=== PATIENT | female | born 1985 | race African-American/Black ===

== ENCOUNTER 2017-01-23 05:13 | Inpatient (IN) | payer OTHER ==
[2017-01-23] MEDS ORDERED: FAMOTIDINE 20 MG/50 ML IVPB 50 ML IVPB ONE ×2 (05:43→06:33)
[2017-01-23] MEDS ORDERED: PANTOPRAZOLE SODIUM 40 MG in SODIUM CHLORIDE 100 ML IVPB ONE (05:43)
[2017-01-23] MEDS ORDERED: ONDANSETRON 4 MG/2 ML VIAL IVPUSH ONE ×2 (05:43→07:44)
[2017-01-23] MEDS ORDERED: SUCRALFATE 1 GM TABLET (FP) PO ONE (05:44)
[2017-01-23] MEDS ORDERED: SODIUM CHLORIDE 1,000 ML IV STA ×2 (05:52→07:44)
[2017-01-23] MEDS ORDERED: morphine CARPU-JECT 4 MG/1 ML DISP.SYRIN IVPUSH ONE (05:52)
--- NOTE | 2017-01-23 05:52 | PDOC ---
History of Present Illness - General Stated Complaint: ABD PAIN Time Seen by Provider: 01/23/17 05:19 History Source: Patient Exam Limitations: No Limitations - History of Present Illness Initial Comments: CHIEF COMPLAINT: 31 y/o afebrile female with PMH anxiety, migraines, perforated ulcer BIB EMS for abdominal pain. HISTORY OF PRESENT ILLNESS: The patient states last night she started having abdominal pain out of nowhere. She also admits to nausea. She denies fever, chills, v/d, constipation, CP, SOB, back pain, hematuria, dysuria, melena, hematochezia. The patient was here in 10/2016 and was found to have a perforated ulcer and was transferred to a tertiary facility. She states she did not have surgery. She is on daily protonix, which she did take yesterday. Vital signs on arrival are notable for pulse of 96. REVIEW OF SYSTEMS: GENERAL/CONSTITUTIONAL: No fever/chills. No weakness. No weight change. HEAD, EYES, EARS, NOSE AND THROAT: No change in vision. No ear pain or discharge. No sore throat. CARDIOVASCULAR: No chest pain or shortness of breath. RESPIRATORY: No cough, wheezing, or hemoptysis. GASTROINTESTINAL: +abd pain and nausea. No vomiting, diarrhea, constipation, melena. GENITOURINARY: No dysuria, frequency, or change in urination. MUSCULOSKELETAL: No joint or muscle swelling or pain. No neck or back pain. SKIN: No rash or easy bruising. NEUROLOGIC: No headache, vertigo, loss of consciousness, or loss of sensation. PHYSICAL EXAM: GENERAL: The patient is awake, alert, and fully oriented, intermittently screaming out in pain. She appears uncomfortable. HEAD: Normal with no signs of trauma. ENT: Pupils equal, round and reactive to light, extraocular movements intact, sclera anicteric, conjunctiva clear. Neck supple. Mucous membranes mildly dry. Lips dry and cracked with large crack down the middle of lower lip. LUNGS: Clear to auscultation bilaterally. Normal excursion. No respiratory distress or use of accessory muscles. CV: RRR, S1/S2, no MRG. Cap refill < 2 sec. ABDOMEN: Soft, mildly distended with hypoactive bowel sounds throughout. RUQ TTP with negative Barr's sign. Marked TTP of umbilical region and mcburney's point with passive guarding. No rigidity or rebound. Positive psoas and obturator signs. EXTREMITIES: Normal range of motion, no edema. NEUROLOGICAL: Normal speech, normal gait. CN II-XII grossly intact. PSYCH: Normal mood, normal affect. SKIN: Warm, dry, normal turgor, no rashes or lesions noted. Past History - Past Medical History Allergies/Adverse Reactions: Allergies Allergy/AdvReac Type Severity Reaction Status Date / Time No Known Drug Allergies Allergy Verified 01/11/17 10:58 Home Medications: Ambulatory Orders Tramadol HCl 50 mg PO TID #15 tablet MDD 4 11/15/16 Omeprazole 20 mg PO DAILY 01/23/17 Anemia: Yes (BLOOD TRANSFUSIONS) Asthma: No Cancer: No Cardiac Disorders: No CVA: No COPD: No CHF: No Dementia: No Diabetes: No GI Disorders: Yes (ABDOMINAL BLOATING/PAIN/WT LOSS SINCE BLDING ULCER) Disorders: No HTN: Yes (BORDERLINE BP AFTER CHILDBIRTH /NO MEDS) Hypercholesterolemia: No Liver Disease: No Psychiatric Problems: Yes (DEPRESSION) Seizures: No Thyroid Disease: No - Surgical History Abdominal Surgery: No Appendectomy: No Cardiac Surgery: No Cholecystectomy: No Lung Surgery: No Neurologic Surgery: No Orthopedic Surgery: No - Family Disease History Family Disease History: Heart Disease: Grandparents - Reproductive History Cervical CA: No Dysfunctional Uterine Bleeding: No Ectopic : No Endometrial CA: No Polycystic Ovaries: No Tubal Ligation: No - Psycho/Social/Smoking Cessation Hx Anxiety: No Suicidal Ideation: No Smoking History: Current every day smoker Have you smoked in the past 12 months: Yes Number of Cigarettes Smoked Daily: 6 Hx Alcohol Use: No Drug/Substance Use Hx: No Substance Use Type: None Hx Substance Use Treatment: No ED Treatment Course - LABORATORY CBC & Chemistry Diagram: 01/26/17 06:10 01/26/17 06:10 Medical Decision Making - Medical Decision Making A/P: 31 y/o afebrile female with PMH perforated ulcer c/o abdominal pain and nausea since last night. Plan is as follows: 1. Labs 2. UA/hcg 3. CT scan abd/pelvis 4. IV fluids 5. IV zofran, morphine, pepcid, protonix 6. PO carafate I am signing this patient out to my colleague: CELESTE Gamez In brief, this patient is being seen in the ED for a chief complaint of: abd pain I have completed the initial assessment interview note and have ordered: labs, UA, CT scan abd/pelvis, pain meds, antiemetics, IV fluids I have reviewed the following results: none Pending results are: all Please call the PCP: Shayne Plan for disposition is as follows: Pending *DC/Admit/Observation/Transfer Diagnosis at time of Disposition: Perforated bowel, Acute abdomen, Intra-abdominal free air of unknown etiology
[2017-01-23] MEDS ORDERED: morphine CARPU-JECT 4 MG/1 ML DISP.SYRIN ONE (06:08)
[2017-01-23] MEDS ORDERED: ONDANSETRON 4 MG/2 ML VIAL ONE ×2 (06:09→08:11)
[2017-01-23] MEDS ORDERED: SUCRALFATE 1 GM TABLET (FP) ONE (06:09)
[2017-01-23] MEDS ORDERED: PANTOPRAZOLE SODIUM 100 ML IVPB ONE (06:09)
[2017-01-23 06:40] LABS: BASOPHIL 0.5 % (0-2.0); EOSINOPHIL 0.2 % (0-4.5); MCH 26.4 pg (25.7-33.7); MCHC 30.3 g/dl (32.0-36.0); MEAN CELL VOLUME 86.9 fl (80-96); MEAN PLT VOLUME 8.5 fl (7.5-11.1); NEUTROPHILS 87.2 % (42.8-82.8); PLATELET COUNT 558 K/MM3 (134-434); WHITE BLOOD COUNT 14.7 K/mm3 (4.0-10.0)
[2017-01-23 07:11] LABS: ALBUMIN 3.8 g/dl (3.4-5.0); ALK PHOS 106 U/L (45-117); ANION GAP 10 (8-16); BILIRUBIN,TOTAL 0.2 mg/dL (0.2-1.0); CO2 25 mmol/L (21-32); CREATININE 0.5 mg/dL (0.55-1.02); GLUCOSE,RANDOM 121 mg/dL (74-106); SGOT/AST 7 U/L (15-37); SGPT/ALT < 6 U/L (12-78); TOT PROT 7.7 g/dl (6.4-8.2)
--- NOTE | 2017-01-23 07:48 | PDOC ---
*Physical Exam - Vital Signs Last Vital Signs Temp Pulse Resp BP Pulse Ox 97.9 F 96 H 20 110/68 100 01/23/17 05:48 01/23/17 05:48 01/23/17 05:48 01/23/17 05:48 01/23/17 05:48 - Physical Exam Gastrointestinal/Abdominal: positive: Decreased BS (x 4), Distended, Tenderness (generalized). negative: Soft (doughy feeling) Integumentary: positive: Normal Color, Dry, Warm ED Treatment Course - LABORATORY CBC & Chemistry Diagram: 01/23/17 06:15 01/23/17 06:15 - ADDITIONAL ORDERS Additional order review: Laboratory Results 01/23/17 01/23/17 06:15 06:15 Sodium 139 Potassium 3.6 Chloride 104 Carbon Dioxide 25 Anion Gap 10 BUN 10 Creatinine 0.5 L Creat Clearance w eGFR > 60 Random Glucose 121 H D Calcium 9.0 Total Bilirubin 0.2 AST 7 L D ALT < 6 L D Alkaline Phosphatase 106 D Total Protein 7.7 Albumin 3.8 Lipase 116 Serum , Qual Negative 01/23/17 06:15 RBC 2.70 L D MCV 86.9 MCHC 30.3 L RDW 24.0 H D MPV 8.5 D Neutrophils % 87.2 H Lymphocytes % 8.3 D Monocytes % 3.8 Eosinophils % 0.2 D Basophils % 0.5 - Medications Given in the ED: ED Medications Discontinued Medications Generic Name Dose Route Start Last Admin Trade Name Freq PRN Reason Stop Dose Admin Pantoprazole Sodium 40 mg/ 100 mls @ 200 mls/hr 01/23/17 05:43 01/23/17 06:20 Sodium Chloride IVPB 01/23/17 06:12 200 mls/hr ONCE ONE Administration Famotidine/Sodium Chloride 50 mls @ 100 mls/hr 01/23/17 05:43 01/23/17 06:36 Pepcid 20 Mg Premixed Ivpb - IVPB 01/23/17 06:12 100 mls/hr ONCE ONE Administration Sodium Chloride 1,000 mls @ 1,000 mls/hr 01/23/17 05:52 01/23/17 06:20 Normal Saline - IV 01/23/17 06:51 1,000 mls/hr ASDIR STA Administration Morphine Sulfate 4 mg 01/23/17 05:52 01/23/17 06:20 Morphine Injection - IVPUSH 01/23/17 05:53 4 mg ONCE ONE Administration Ondansetron HCl 4 mg 01/23/17 05:43 01/23/17 06:20 Zofran Injection IVPUSH 01/23/17 05:44 4 mg ONCE ONE Administration Sucralfate 1 gm 01/23/17 05:44 01/23/17 06:20 Carafate - PO 01/23/17 05:45 1 gm NOW ONE Administration Medical Decision Making - Critical Care Time Total Critical Care Time (minutes): 40 Critical Care Statement: The care of this patient involved high complexity decision making to prevent further life threatening deterioration of the patient 's condition and/or to evalute & treat vital organ system(s) failure or risk of failure. - Medical Decision Making 01/23/17 07:45 Patient received in sign out from EUGENIO Crespo. Patient here for abdominal pain. Patient with history of perforated Pepcid ulcer and states has now right lower quadrant pain. Patient has an elevated white count and a low H&H. Patient added for lactic acid, blood cultures and type and she was recently sent. Patient also complaining of nausea. Patient added for another dose of Zofran and has a dry appearance ordered for another 1 liter of IV fluid. 01/23/17 08:[address] patient was in severe pain. Patient ordered for Dilaudid prior to transfer. 01/23/17 10:00 Receive phone call from radiologist and patient has free air throughout the abdomen with perforation of her bowel. Patient immediately ordered for 2 units of blood, nothing by mouth, front desk monitor, preop labs, Gonzalez, and stat EKG. Call placed to Dr. Robin surgeon and surgical PA 01/23/17 10:[address] Robin surgeon states he will be here in the next 2 hours and patient needs to be seen by the surgical PA. Microblog placed again. Case discussed with hospitalist for medical admission and will sent to the ICU until the OR is ready. 01/23/17 10:14 Patient's blood pressure 129/94. Patient's heart rate 104. Patient is requesting more pain control. Patient be ordered for another dose of Dilaudid. Awaiting callback from diesel technician. Pt ordered for levaquin/flagyl iv *DC/Admit/Observation/Transfer Diagnosis at time of Disposition: Perforated bowel, Acute abdomen - Discharge Dispostion Admit: Yes - Referrals Referrals: Berny Bella MD [Primary Care Provider] -
[2017-01-23] MEDS ORDERED: HYDROmorphone HCL CARPU-JECT 2 MG/1 ML DISP.SYRIN IVPUSH ONE ×2 (08:12→10:16)
[2017-01-23] MEDS ORDERED: HYDROmorphone HCL CARPU-JECT 1 MG/1 ML DISP.SYRIN ONE ×2 (08:16→10:43)
[2017-01-23 09:29] LABS: ANISOCYTOSIS 3+; HYPOCHROMIA 3+; MICROCYTOSIS 1+; TEAR DROP CELLS FEW
--- NOTE | 2017-01-23 09:58 | PDOC ---
*Physical Exam - Vital Signs Last Vital Signs Temp Pulse Resp BP Pulse Ox 97.9 F 96 H 20 110/68 100 01/23/17 05:48 01/23/17 05:48 01/23/17 05:48 01/23/17 05:48 01/23/17 05:48 - Physical Exam Comments: 01/23/17 09:52 SIGN IN Sign-out received from night MLP (supervised by Dr. Moralez) Pt interviewed and examined Ancillary studies reviewed MIDLEVEL NOTE Pt seen by Midlevel Provider Madhuri Gamez under my direct supervision. Pt interviewed and examined. Ancillary studies reviewed. I agree with plan as outlined by Midlevel Provider. Pt with pmhx of prior perforated duodenal ulcer, who was transferred to [facility] and had an unknown procedure. (Pt does not know what proceedure was done at [facility] - [facility] records not available for review at this time) CT scan of the abdomen and pelvis with contrast There is a large volume of free air and free fluid in the abdomen consistent with perforation Metallic foreign bodies are seen, which likely represents surgical clips in the region of the duodenum possibly from prior surgery Strong suspicion for perforation/penetrating ulcer in the region of the pylorus or duodenum as the etiology for the patient's free air and free fluid There is fluid in infiltration surrounding the region of the gastric outlet, with enhancement of the gastric wall Laboratory Results - last 24 hr 01/23/17 01/23/17 01/23/17 05:44 06:15 06:15 WBC 14.7 H D RBC 2.70 L D Hgb 7.1 L D Hct 23.4 L D MCV 86.9 MCHC 30.3 L RDW 24.0 H D Plt Count 558 H MPV 8.5 D Neutrophils % 87.2 H Lymphocytes % 8.3 D Monocytes % 3.8 Eosinophils % 0.2 D Basophils % 0.5 Hypochromic-Microcytic 3+ Anisocytosis 3+ Microcytosis 1+ Macrocytosis 2+ Tear Drop Cells Few Sodium 139 Potassium 3.6 Chloride 104 Carbon Dioxide 25 Anion Gap 10 BUN 10 Creatinine 0.5 L Creat Clearance w eGFR > 60 Random Glucose 121 H D Lactic Acid Calcium 9.0 Total Bilirubin 0.2 AST 7 L D ALT < 6 L D Alkaline Phosphatase 106 D Total Protein 7.7 Albumin 3.8 Lipase 116 Serum , Qual Blood Type O POSITIVE Antibody Screen Positive H Antibody Identification TNP Crossmatch See Detail 01/23/17 01/23/17 06:15 08:35 WBC RBC Hgb Hct MCV MCHC RDW Plt Count MPV Neutrophils % Lymphocytes % Monocytes % Eosinophils % Basophils % Hypochromic-Microcytic Anisocytosis Microcytosis Macrocytosis Tear Drop Cells Sodium Potassium Chloride Carbon Dioxide Anion Gap BUN Creatinine Creat Clearance w eGFR Random Glucose Lactic Acid 1.161 Calcium Total Bilirubin AST ALT Alkaline Phosphatase Total Protein Albumin Lipase Serum , Qual Negative Blood Type Antibody Screen Antibody Identification Crossmatch EKG Sinus tachycardia 107, with normal axis Normal AV and IV conduction time Prolonged QT, with QTC of 558 Movement artifact will check Mag with prolonged QTc Surgery - Dr Robin - paged stat 01/23/17 10:14 Case d/w Dr Robin and Hospitalist - coming to see pt will start coverage with levaquin and flagyl admit ICU, Surg. to evaluate Hospitalist at bedside (Dr. Carr) Plan for OR Impression - acute surgical abdomen with free air and perforation ED Treatment Course - LABORATORY CBC & Chemistry Diagram: 01/24/17 07:10 01/24/17 07:10 - ADDITIONAL ORDERS Additional order review: Laboratory Results 01/23/17 01/23/17 01/23/17 08:35 06:15 06:15 Sodium 139 Potassium 3.6 Chloride 104 Carbon Dioxide 25 Anion Gap 10 BUN 10 Creatinine 0.5 L Creat Clearance w eGFR > 60 Random Glucose 121 H D Lactic Acid 1.161 Calcium 9.0 Total Bilirubin 0.2 AST 7 L D ALT < 6 L D Alkaline Phosphatase 106 D Total Protein 7.7 Albumin 3.8 Lipase 116 Serum , Qual Negative Blood Type Antibody Screen Antibody Identification Crossmatch 01/23/17 05:44 Sodium Potassium Chloride Carbon Dioxide Anion Gap BUN Creatinine Creat Clearance w eGFR Random Glucose Lactic Acid Calcium Total Bilirubin AST ALT Alkaline Phosphatase Total Protein Albumin Lipase Serum , Qual Blood Type O POSITIVE Antibody Screen Positive H Antibody Identification TNP Crossmatch See Detail 01/23/17 06:15 RBC 2.70 L D MCV 86.9 MCHC 30.3 L RDW 24.0 H D MPV 8.5 D Neutrophils % 87.2 H Lymphocytes % 8.3 D Monocytes % 3.8 Eosinophils % 0.2 D Basophils % 0.5 - Medications Given in the ED: ED Medications Discontinued Medications Generic Name Dose Route Start Last Admin Trade Name Freq PRN Reason Stop Dose Admin Hydromorphone HCl 1 mg 01/23/17 08:12 01/23/17 08:18 Dilaudid Injection - IVPUSH 01/23/17 08:13 1 mg ONCE ONE Administration Pantoprazole Sodium 40 mg/ 100 mls @ 200 mls/hr 01/23/17 05:43 01/23/17 06:20 Sodium Chloride IVPB 01/23/17 06:12 200 mls/hr ONCE ONE Administration Famotidine/Sodium Chloride 50 mls @ 100 mls/hr 01/23/17 05:43 01/23/17 06:36 Pepcid 20 Mg Premixed Ivpb - IVPB 01/23/17 06:12 100 mls/hr ONCE ONE Administration Sodium Chloride 1,000 mls @ 1,000 mls/hr 01/23/17 05:52 01/23/17 06:20 Normal Saline - IV 01/23/17 06:51 1,000 mls/hr ASDIR STA Administration Sodium Chloride 1,000 mls @ 1,000 mls/hr 01/23/17 07:44 01/23/17 08:15 Normal Saline - IV 01/23/17 08:43 1,000 mls/hr ASDIR STA Administration Morphine Sulfate 4 mg 01/23/17 05:52 01/23/17 06:20 Morphine Injection - IVPUSH 01/23/17 05:53 4 mg ONCE ONE Administration Ondansetron HCl 4 mg 01/23/17 05:43 01/23/17 06:20 Zofran Injection IVPUSH 01/23/17 05:44 4 mg ONCE ONE Administration Ondansetron HCl 4 mg 01/23/17 07:44 01/23/17 08:15 Zofran Injection IVPUSH 01/23/17 07:45 4 mg ONCE ONE Administration Sucralfate 1 gm 01/23/17 05:44 01/23/17 06:20 Carafate - PO 01/23/17 05:45 1 gm NOW ONE Administration *DC/Admit/Observation/Transfer Diagnosis at time of Disposition: Perforated bowel, Acute abdomen, Intra-abdominal free air of unknown etiology - Discharge Dispostion Admit: Yes - Referrals
[2017-01-23] MEDS ORDERED: LEVOFLOXACIN 750 MG IVPB 150 ML IVPB ONE ×2 (10:16→10:43)
[2017-01-23] MEDS ORDERED: METRONIDAZOLE 500 MG PREMIXED 100 ML IVPB ONE ×2 (10:16→10:44)
[2017-01-23 10:53] LABS: URINE APPEARANCE CLEAR; URINE BILIRUBIN NEGATIVE (NEGATIVE); URINE BLOOD NEGATIVE (NEGATIVE); URINE COLOR LTYELLOW; URINE GLUCOSE (UA) NEGATIVE (NEGATIVE); URINE KETONE NEGATIVE (NEGATIVE); URINE LEUK ESTERASE NEGATIVE (NEGATIVE); URINE NITRITE NEGATIVE (NEGATIVE); URINE UROBILINOGEN NEGATIVE E.U./dl (0.2-1.0)
[2017-01-23] MEDS ORDERED: HYDROmorphone HCL CARPU-JECT 1 MG/1 ML DISP.SYRIN IVPUSH PRN (10:53)
[2017-01-23] MEDS ORDERED: ONDANSETRON 4 MG/2 ML VIAL IVPB PRN ×2 (10:53→16:09)
[2017-01-23] MEDS ORDERED: SODIUM CHLORIDE 1,000 ML IV SCH ×2 (11:00→16:09)
[2017-01-23 11:02] LABS: INR 1.23 (0.82-1.09); PROTHROMBIN TIME (PATIENT) 13.6 SEC (9.98-11.88)
[2017-01-23 11:03] LABS: URINE PROTEIN 1+ (NEGATIVE)
--- NOTE | 2017-01-23 11:04 | EKG ---
Test Reason : Blood Pressure : / mmHG Vent. Rate : 107 BPM Atrial Rate : 107 BPM P-R Int : 152 ms QRS Dur : 066 ms QT Int : 418 ms P-R-T Axes : 056 039 062 degrees QTc Int : 558 ms SINUS TACHYCARDIA BASELINE ARTIFACT PROLONGED QT ABNORMAL ECG WHEN COMPARED WITH ECG OF 15-NOV-2016 06:26, QT HAS LENGTHENED Confirmed by CHAUNCEY KEBEDE MD ([id number]) on 01/23/2017 11:03:29 AM Referred By: Confirmed By:CHAUNCEY KEBEDE MD
[2017-01-23 11:06] LABS: URINE HYALINE CAST 7 /lpf; URINE MUCUS RARE; URINE RBC <1 /hpf (0-3); URINE WBC 1 /hpf (3-5); YEAST FEW
--- NOTE | 2017-01-23 11:21 | HP ---
PCP: Berny Bella CHIEF COMPLAINT: Abdominal pain HISTORY OF PRESENT ILLNESS: This is a 31-year-old woman who presented to the ER complaining of abdominal pain. She has been having worsening pain with nausea for several days. She has a history of constipation for which she takes Miralax. She thinks her last bowel movement was about 1 week ago. She denies vomiting, melena, rectal bleeding, fever, chills, flank pain, dysuria, hematuria , aspirin use, NSAID use, steroid use. She has no appetite and has lost about 4 lbs in the last month. She had an EGD with Dr. Corado on 01/15 - she says he told her she has something metal in her. She had been admitted here on 07/27/16 with abdominal pain and hemoglobin 2.9. Non-contrast CT of the abdomen and pelvis at that time was unremarkable. She was transfused. She developed acute respiratory failure and an acute abdomen. She was intubated. CT of the abdomen and pelvis with contrast showed significant distention of the stomach with narrowing of the distal antral/proximal duodenal region, small amount of air and contrast in and about the narrowed lumen. It was thought she had a retroperitoneal microperforation or pending perforation and that endoscopy would be too risky, so she was transferred to [facility]. She is not sure what was done there or what her diagnosis was. She has also been seen in the ER for abdominal pain on 10/30/16 and 11/15/16. CT on 10/30 showed a left adnexal cyst, and US on 11/15 was unremarkable. PAST MEDICAL HISTORY Anemia Hypertension Depression Migraine headache Ovarian cysts PAST SURGICAL HISTORY None Allergies No Known Drug Allergies Allergy (Verified 01/11/17 10:58) HOME MEDICATIONS 3 Medication Instructions Recorded Tramadol HCl 50 mg PO TID #15 tablet MDD 4 11/15/16 Omeprazole 20 mg PO DAILY 01/23/17 Recent Travel: No Social History: Smoking: Smokes 6 cigarettes/day Alcohol: Denies Drugs: Denies Family History: Unremarkable REVIEW OF SYSTEMS CONSTITUTIONAL: Present: weight loss, loss of appetite. Absent: fever, chills, diaphoresis, generalized weakness, malaise HEENT: Absent: rhinorrhea, nasal congestion, throat pain, throat swelling, difficulty swallowing, mouth swelling, ear pain, eye pain, visual changes CARDIOVASCULAR: Absent: chest pain, syncope, palpitations, lightheadedness, peripheral edema RESPIRATORY: Absent: cough, shortness of breath, dyspnea with exertion, orthopnea, wheezing, stridor, hemoptysis GASTROINTESTINAL: Present: abdominal pain, abdominal distention, nausea, constipation. Absent: vomiting, diarrhea, melena, hematochezia GENITOURINARY: Absent: dysuria, frequency, urgency, hesitancy, hematuria, flank pain MUSCULOSKELETAL: Absent: myalgia, arthralgia, joint swelling, back pain, neck pain SKIN: Absent: rash, itching, pallor HEMATOLOGIC/IMMUNOLOGIC: Absent: easy bleeding, easy bruising, lymphadenopathy, frequent infections ENDOCRINE: Present: unexplained weight loss. Absent: unexplained weight gain, heat intolerance, cold intolerance NEUROLOGIC: Present: headaches. Absent: focal weakness, paresthesias, dizziness , unsteady gait, seizure, mental status changes, bladder or bowel incontinence PSYCHIATRIC: Absent: anxiety, depression, suicidal or homicidal ideation, hallucinations. PHYSICAL EXAMINATION Vital Signs - 24 hr 01/23/17 01/23/17 01/23/17 05:48 07:46 10:00 Temperature 97.9 F 97.9 F 98.1 F Pulse Rate 96 H Pulse Rate [ 97 H 100 H Right Radial] Respiratory 20 16 16 Rate Blood Pressure 110/68 Blood Pressure 122/93 129/96 [Left Arm] O2 Sat by Pulse 100 100 100 Oximetry (%) GENERAL: Awake, alert, and fully oriented, in no acute distress. HEAD: Normal with no signs of trauma. EYES: Pupils equal, round and reactive to light, extraocular movements intact, sclerae anicteric, conjunctivae clear. EARS, NOSE, THROAT: Ears normal, nares patent, oropharynx clear without exudates. Moist mucous membranes. NECK: Normal range of motion, supple without lymphadenopathy, JVD, or masses. LUNGS: Breath sounds equal, clear to auscultation bilaterally. No wheezes, and no crackles. No accessory muscle use. HEART: Tachycardic, normal S1 and S2 without murmur, rub or gallop. ABDOMEN: Soft, distended, hypoactive bowel sounds, diffuse tenderness with guarding and rebound. No masses, hepatomegaly or splenomegaly. MUSCULOSKELETAL: Normal range of motion at all joints. No bony deformities or tenderness. No CVA tenderness. UPPER EXTREMITIES: 2+ pulses, warm, well-perfused. No cyanosis. No clubbing. Cap refill <2 seconds. No peripheral edema. LOWER EXTREMITIES: 2+ pulses, warm, well-perfused. No calf tenderness. No peripheral edema. NEUROLOGICAL: Cranial nerves II-XII intact. Normal speech. Gait not observed. PSYCHIATRIC: Cooperative. Good eye contact. Appropriate mood and affect. SKIN: Warm, dry, normal turgor, no rashes or lesions noted. Laboratory Results - last 24 hr 01/23/17 01/23/17 01/23/17 05:44 06:15 06:15 WBC 14.7 H D RBC 2.70 L D Hgb 7.1 L D Hct 23.4 L D MCV 86.9 MCHC 30.3 L RDW 24.0 H D Plt Count 558 H MPV 8.5 D Neutrophils % 87.2 H Lymphocytes % 8.3 D Monocytes % 3.8 Eosinophils % 0.2 D Basophils % 0.5 Hypochromic-Microcytic 3+ Anisocytosis 3+ Microcytosis 1+ Macrocytosis 2+ Tear Drop Cells Few Sodium 139 Potassium 3.6 Chloride 104 Carbon Dioxide 25 Anion Gap 10 BUN 10 Creatinine 0.5 L Creat Clearance w eGFR > 60 Random Glucose 121 H D Lactic Acid Calcium 9.0 Total Bilirubin 0.2 AST 7 L D ALT < 6 L D Alkaline Phosphatase 106 D Total Protein 7.7 Albumin 3.8 Lipase 116 Serum , Qual Blood Type O POSITIVE Antibody Screen Positive H Antibody Identification TNP Crossmatch See Detail 01/23/17 01/23/17 06:15 08:35 WBC RBC Hgb Hct MCV MCHC RDW Plt Count MPV Neutrophils % Lymphocytes % Monocytes % Eosinophils % Basophils % Hypochromic-Microcytic Anisocytosis Microcytosis Macrocytosis Tear Drop Cells Sodium Potassium Chloride Carbon Dioxide Anion Gap BUN Creatinine Creat Clearance w eGFR Random Glucose Lactic Acid 1.161 Calcium Total Bilirubin AST ALT Alkaline Phosphatase Total Protein Albumin Lipase Serum , Qual Negative Blood Type Antibody Screen Antibody Identification Crossmatch Chest x-ray: No acute process CT abd/pelvis: Large free air and free fluid. Surgical clips in region of duodenum. ASSESSMENT/PLAN: This is a 31-year-old woman with a history of iron-deficiency anemia, depression , HTN, migraine headaches, ovarian cysts who comes to the ER with worsening abdominal pain and nausea. She is afebrile, tachycardic and has WBC 14.7, hgb 7.1. CT shows free air and fluid. She is being admitted now for treatment of an emergent condition. 1. SIRS secondary to bowel perforation, possibly gastric/duodenal ulcer - NPO - IV fluid - Dilaudid as needed for pain - Zofran as needed for nausea - Protonix IV 2x daily - Levaquin ordered - Surgery consult - Obtain records from [facility] (Jul 2016) 2. Iron deficiency anemia - Likely secondary to chronic GI blood loss - Monitor hemoglobin and transfuse if <7.0 3. Depression - On no medication 4. Hypertension - On no medication Problem List - Problem (1) Acute abdomen Code(s): R10.0 - ACUTE ABDOMEN (2) SIRS (systemic inflammatory response syndrome) Code(s): R65.10 - SIRS OF NON-INFECTIOUS ORIGIN W/O ACUTE ORGAN DYSFUNCTION (3) Hypertension Code(s): I10 - ESSENTIAL (PRIMARY) HYPERTENSION (4) Depression Code(s): F32.9 - MAJOR DEPRESSIVE DISORDER, SINGLE EPISODE, UNSPECIFIED Visit type - Emergency Visit Emergency Visit: Yes ED Registration Date: 01/23/17 Care time: The patient presented to the Emergency Department on the above date and was hospitalized for further evaluation of their emergent condition. - New Patient This patient is new to me today: Yes Date on this admission: 01/23/17 - Critical Care Critical Care patient: Yes Total Critical Care Time (in minutes): 45 Critical Care Statement: The care of this patient involved high complexity decision making to prevent further life threatening deterioration of the patient 's condition and/or to evalute & treat vital organ system(s) failure or risk of failure.
--- NOTE | 2017-01-23 12:21 | CONSULT ---
- Consultation REQUESTING PROVIDER: Malick Robin (General Surgery) CONSULT REQUEST: We have been asked to surgically evaluate this patient for free air in the abdomen. PCP:Dm Carr MD HPI: Called to rigoberto 31yo female with significant PMHx of PUD. Who presented to the ER c/o abd pain that has steadily worsened over the past few days. This morning, she awoke with sever 10/10 pain. She has miltiple encounters tot his hospital for abd pain. She is followed by GI as an out-patient. She recently had an EGD with Dr. Corado on 01/15. Thinks her last BM was ~1 week ago. Hospital visit 07/27/16: admit w/ abd pain and Hgb 2.9. CT A/P w/ contrast showed significant distention of the stomach with narrowing of the distal antral/ proximal duodenal region, small amount of air and contrast in and about the narrowed lumen. It was thought she had a retroperitoneal microperforation or pending perforation and that endoscopy would be too risky, so she was transferred to [facility]. She is not sure what was done there or what her diagnosis was. Currently getting 1 unit PRBC secondary to low h/h. She denies n/v/f/c, diaphoresis. Denies chest pain, syncope, palpitations or lightheadedness. Denies cough, SOB or MARTINEZ. Denies constipation, melena or hematochezia. Denies dysuria or flank pain. PMHx: Anemia, Depression, Migraine headache, Ovarian cysts, PUD, Constipation, UGIB PSHx: EGD Dec 2015 Allergies: NKDA HOME MEDICATIONS 3 Medication Instructions Recorded Tramadol HCl 50 mg PO TID #15 tablet MDD 4 11/15/16 Omeprazole 20 mg PO DAILY 01/23/17 ROS: CONSTITUTIONAL: Absent: SEE ABOVE. generalized weakness, malaise, loss of appetite, weight change CARDIOVASCULAR: Absent: SEE ABOVE. irregular heart rate, peripheral edema RESPIRATORY: Absent: SEE ABOVE. cough, wheezing, stridor, hemoptysis GASTROINTESTINAL:Absent: SEE ABOVE. GENITOURINARY: Absent: SEE ABOVE. frequency, urgency, hesitancy, hematuria MUSCULOSKELETAL: Absent: myalgia, arthralgia, joint swelling, back pain, neck pain SKIN: Absent: rash, itching, pallor HEMATOLOGIC/IMMUNOLOGIC: Absent: easy bleeding, easy bruising, lymphadenopathy NEUROLOGIC: Absent: headache, focal weakness, paresthesias, dizziness, unsteady gait, seizure, mental status changes, bladder or bowel incontinence PSYCHIATRIC: Absent: anxiety, depression, suicidal or homicidal ideation, hallucinations. PE: GENERAL: Awake, alert, and fully oriented, moderate distress HEAD: Normal with no signs of trauma. EYES: PERRL, sclera anicteric, conjunctiva clear. NECK: Normal ROM, supple without lymphadenopathy, JVD, or masses. LUNGS: CTA b/l anteriorly HEART: Slightly tachy ABDOMEN: Distended. Tympanic throughout. VERY painful to to light palpation . Hypoactive bowel sounds. + Rigidity/guarding (+peritoneal signs) MUSCULOSKELETAL: Normal ROM at all joints. No bony deformities or tenderness. No CVA tenderness. UE: 2+ pulses, warm, well-perfused. No cyanosis. Cap refill <2 seconds. No peripheral edema. LE: 2+ pulses, warm, well-perfused. No calf tenderness. No peripheral edema. Last Vital Signs Temp Pulse Resp BP Pulse Ox 98.1 F 103 H 19 119/77 100 01/23/17 11:47 01/23/17 11:47 01/23/17 11:47 01/23/17 11:47 01/23/17 11:47 CBC, BMP 01/23/17 06:15 01/23/17 06:15 INR, PTT INR 1.23 (0.82-1.09) H 01/23/17 10:00 Blood Type Blood Type O POSITIVE 01/23/17 05:44 Hepatic Panel Total Bilirubin 0.2 mg/dL (0.2-1.0) 01/23/17 06:15 AST 7 U/L (15-37) L D 01/23/17 06:15 ALT < 6 U/L (12-78) L D 01/23/17 06:15 Alkaline Phosphatase 106 U/L (45-117) D 01/23/17 06:15 Albumin 3.8 g/dl (3.4-5.0) 01/23/17 06:15 Problem List - Problems (1) Intra-abdominal free air of unknown etiology Assessment/Plan: NPO IVF IV ABX Medical optimization Going to OR at 13:00hrs today for exploratory laparotomy. --> risks, benefits, alternatives explained to patient and she agrees to above procedure. f/u HCG PRBC PRN Above plan discussed with Dr. Robin and agrees Code(s): K66.8 - OTHER SPECIFIED DISORDERS OF PERITONEUM Visit type - Case Type Case Type: ED Admission - Emergency Emergency Visit: Yes ED Registration Date: 01/23/17 Care time: The patient presented to the Emergency Department on the above date and was hospitalized for further evaluation of their emergent condition. - New patient This patient is new to me today: Yes Date on this admission: 01/23/17
[2017-01-23] MEDS ORDERED: MIDAZOLAM HCL 2 MG/2 ML SINGLE DOSE VIAL ONE (12:45)
[2017-01-23] MEDS ORDERED: PROPOFOL 20 ML ONE (12:45)
[2017-01-23] MEDS ORDERED: SUCCINYLCHOLINE CHLORIDE 200 MG/10 ML VIAL ONE (12:45)
[2017-01-23] MEDS ORDERED: ROCURONIUM BROMIDE 50 MG/5 ML VIAL ONE (12:45)
[2017-01-23] MEDS ORDERED: DEXAMETHASONE SOD PHOSPHATE 4 MG/1 ML VIAL ONE (12:48)
[2017-01-23] MEDS ORDERED: LIDOCAINE HCL/PF 2% SDV 5ML VIAL ONE (12:48)
[2017-01-23 13:14] LABS: MAGNESIUM 2.1 mg/dL (1.8-2.4)
--- NOTE | 2017-01-23 13:30 | PN ---
Progress Note (short form) - Note Progress Note: Attending Surgeon: patient seen and evaluated; chart; previous admissions reviewed; w/u to date reviewed Concur w/ A and P as outlined by EUGENIO Ennis; informed consent for surgery obtained from the patient; to OR. Malick Robin MD FACS
[2017-01-23] MEDS ORDERED: HYDROmorphone HCL/PF 1 MG/ML VIAL (FOR PYXIS CHARGING ONLY) ONE (14:12)
[2017-01-23] MEDS ORDERED: GLYCOPYRROLATE 0.2 MG/1 ML VIAL ONE (14:16)
[2017-01-23] MEDS ORDERED: NEOSTIGMINE METHYLSULFATE 0.5 MG/ML - 10 ML MDV ONE (14:16)
[2017-01-23] MEDS ORDERED: KETOROLAC TROMETHAMINE 30 MG/1 ML VIAL ONE (14:37)
--- NOTE | 2017-01-23 14:47 | OP ---
Operative Note - Note: Operative Date: 01/23/17 Pre-Operative Diagnosis: perforated viscus Operation: Paulie patch closure of perforated pyloric channel ulcer. Findings: perforated pyloric channel ulcer Post-Operative Diagnosis: Same as Pre-op Surgeon: Malick Robin Technical Documentation Specialist: Wellington Ennis Anesthesia: General Estimated Blood Loss (mls): 25
--- NOTE | 2017-01-23 14:49 | SURG ---
Surgery Director Of Patient Safety Note Director Of Patient Safety: Wellington Ennis PA-C Date of Service: 01/23/17 Diagnosis: Perforated viscus Procedure: Paulie patch closure of perforated pyloric channel ulcer I was present for the entirety of the operative procedure. For further detail, please refer to operative report. Visit type - Case Type Case Type: ED Admission - Emergency Emergency Visit: Yes ED Registration Date: 01/23/17 Care time: The patient presented to the Emergency Department on the above date and was hospitalized for further evaluation of their emergent condition. - New patient This patient is new to me today: Yes Date on this admission: 01/23/17
[2017-01-23] MEDS ORDERED: PROMETHAZINE HCL 25 MG/1 ML VIAL IVPUSH PRN (14:56)
[2017-01-23] MEDS ORDERED: HYDROmorphone HCL CARPU-JECT 2 MG/1 ML DISP.SYRIN ONE (15:33)
[2017-01-23] MEDS: HYDROmorphone HCL CARPU-JECT 1 MG/1 ML DISP.SYRIN IVPUSH PRN ×4 (15:35→16:10)
[2017-01-23] MEDS: LABETALOL HCL 5 MG/1 ML (100MG/20 ML VIAL) IVPUSH ONE (16:30)
[2017-01-23 18:18] VITALS: BMI 20.2
[2017-01-23] MEDS: HYDROmorphone HCL CARPU-JECT 1 MG/1 ML DISP.SYRIN IVPB PRN (20:31)
[2017-01-23] MEDS ORDERED: MUPIROCIN 2% TOPICAL OINTMENT FOR DECOLONIZATION NS SCH ×2 (22:00)
[2017-01-23] MEDS ORDERED: PANTOPRAZOLE SODIUM 40 MG in SODIUM CHLORIDE 100 ML IVPB SCH (22:00)
[2017-01-23] MEDS ORDERED: PANTOPRAZOLE SODIUM 100 ML IVPB SCH (22:00)
[2017-01-23] MEDS ORDERED: CHLORHEXIDINE GLUCONATE 4% CLEANSER FOR DECOLONIZATION TP SCH (22:00)
[2017-01-24] MEDS: HYDROmorphone HCL CARPU-JECT 1 MG/1 ML DISP.SYRIN IVPB PRN ×3 (00:01→08:32)
[2017-01-24] MEDS: METRONIDAZOLE 500 MG PREMIXED 100 ML IVPB SCH ×3 (01:53→17:16)
[2017-01-24 08:42] LABS: MCH 27.9 pg (25.7-33.7); MCHC 32.3 g/dl (32.0-36.0); MEAN CELL VOLUME 86.3 fl (80-96); MEAN PLT VOLUME 8.4 fl (7.5-11.1); PLATELET COUNT 542 K/MM3 (134-434); RDW 20.5 % (11.6-15.6); WHITE BLOOD COUNT 18.6 K/mm3 (4.0-10.0)
[2017-01-24] MEDS ORDERED: HYDROmorphone *PCA* 10MG/50ML DISP.SYRIN PCA SCH ×2 (09:00→09:01)
--- NOTE | 2017-01-24 09:07 | PN ---
Progress Note, Physician Chief Complaint: s/p ex lap for repair of gastric ulcer under general anesthesia History of Present Illness: post op day one - Current Medication List Current Medications: Active Medications Hydromorphone HCl (Dilaudid Director Epidemiology -) 0 mg REVERSE ENGINEER REVERSE ENGINEER EMILY PRN Reason: Protocol Stop: 01/27/17 08:59 Metronidazole (Flagyl 500mg Premixed Ivpb -) 100 mls @ 100 mls/hr IVPB Q8H-IV EMILY Stop: 01/24/17 17:59 Last Admin: 01/24/17 01:53 Dose: 100 mls/hr Levofloxacin (Levaquin 500 Mg Premixed Ivpb -) 100 mls @ 100 mls/hr IVPB ONCE ONE Stop: 01/24/17 10:59 Lactated Ringer's (Lactated Ringers Solution) 1,000 mls @ 75 mls/hr IV ASDIR EMILY - Objective Vital Signs: Vital Signs Temperature 98.3 F 01/24/17 06:00 Pulse Rate 96 H 01/24/17 06:00 Respiratory Rate 20 01/24/17 06:00 Blood Pressure 151/90 01/24/17 06:00 O2 Sat by Pulse Oximetry (%) 98 01/23/17 21:00 Constitutional: Yes: Anxious, Mild Distress Cardiovascular: Yes: WNL Respiratory: Yes: WNL Gastrointestinal: Yes: Tenderness (d), Other (NG tube in place) Labs: CBC, BMP 01/24/17 07:10 INR, PTT INR 1.23 (0.82-1.09) H 01/23/17 10:00 Assessment/Plan Post op day one, Patient in pain, not controlled by dilaudid boluses, will start on REVERSE ENGINEER today. No other anesthetic complications, dept of anesthesia will follow the pain control with REVERSE ENGINEER
--- NOTE | 2017-01-24 09:26 | MSN ---
Progress Note (short form) - Note Progress Note: Saw patient this AM. Patient is currently on her first post op day, s/p surgically treated perforated viscus in pyloric channel. Patient is NPO Patient states she slept fine last night. Patient currently complains of 9/10 abdominal pain in both upper and lower quadrants and back pain. Patient claims that pain medications are not helping with current pain. Patient did not have any BMs overnight. Patient has had 1250 mL of urine output today and has had Mejia catheter removed. Patient's blood pressure is currently elevated and patient is also feeling anxious. Will consider starting medications for HTN and depression. Patient's WBC count elevated from 14.7 to 18.6, possibly due to the stress of surgery. Patient denies N/V, dizziness, lightheadedness, fever/chills , headaches. Will continue monitor patient's labs and pain. Current Medications Current Medications Generic Name Dose Route Start Last Admin Trade Name Freq PRN Reason Stop Dose Admin Acetaminophen 590 mg 01/24/17 14:32 Ofirmev Injection - IVPB 01/25/17 04:56 Q6H PRN FEVER OR PAIN Metronidazole 100 mls @ 100 mls/hr 01/23/17 18:00 01/24/17 10:21 Flagyl 500mg Premixed Ivpb - IVPB 01/24/17 17:59 100 mls/hr Q8H-IV EMILY Administration Lactated Ringer's 1,000 mls @ 75 mls/hr 01/23/17 15:00 Lactated Ringers Solution IV ASDIR EMILY Pantoprazole Sodium 100 mls @ 200 mls/hr 01/25/17 10:00 Protonix 40mg Ivpb (Pre-Docked) IVPB DAILY EMILY Last Vital Signs Temp Pulse Resp BP Pulse Ox 98.3 F 96 H 20 151/90 98 01/24/17 06:00 01/24/17 06:00 01/24/17 06:00 01/24/17 06:00 01/23/17 21:00 CBC, BMP 01/24/17 07:10 01/24/17 07:10 GENERAL: Alert, oriented. Patient in no apparent distress HEAD: Normal with no signs of trauma. EYES: PERRL, extraocular movements intact, sclera anicteric, conjunctiva clear. No ptosis. ENT: Ears normal, nares patent, oropharynx clear without exudates, moist mucous membranes. NECK: Trachea midline, full range of motion, supple. LUNGS: Breath sounds equal, clear to auscultation bilaterally, no wheezes, no crackles, no accessory muscle use. HEART: Regular rate and rhythm, S1, S2 without murmur, rub or gallop. ABDOMEN: Soft, tender. 9/10 sharp pain in upper and lower quadrants. Midline surgical lesion noted with geovany EXTREMITIES: 2+ pulses, warm, well-perfused, no edema. NEUROLOGICAL: Cranial nerves II through XII grossly intact. Normal speech, gait not observed. PSYCH: Normal mood, normal affect. 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
[2017-01-24 09:37] LABS: CALCIUM 9.2 mg/dL (8.5-10.1); CREATININE 0.4 mg/dL (0.55-1.02)
--- NOTE | 2017-01-24 09:45 | PN ---
Progress Note (short form) - Note Progress Note: POD #1 s/p Ex-lap, Paulie patch closure of perforated pyloric channel ulcer Alert. Hasn't gotten oob yet. Per RN, pt c/o abd pain not controlled well via prn meds. Anesthesia note appreciated. NGT remains on low wall suction. She received her post-op antibiotics. Not using incentive spirometer. Compared to yesterday when I examined patient in ED , she looks much better despite the incisional tenderness. Denies n/v/f/c, CP or SOB Last Vital Signs Temp Pulse Resp BP Pulse Ox 98.3 F 96 H 20 151/90 98 /07/05 06:00 01/24/17 06:00 01/24/17 06:00 01/24/17 06:00 01/23/17 21:00 CBC, BMP 01/24/17 07:10 01/24/17 07:10 PE General: alert. nad. ABD: midline incision c/d/i with geovany. No hematoma LE: SCDs b/l. no pain or swelling Problem List - Problems (1) Intra-abdominal free air of unknown etiology Assessment/Plan: POD #1 s/p Ex-lap, Paulie patch closure of perforated pyloric channel ulcer NPO IVF GI / DVT ppx Goal for today is to be out of bed and ambulate today Carlos garibay and begin trial of void Per Anesthesia, they are starting patient on DISH STACKER which they will control/oversee Incentive spirometer Code(s): K66.8 - OTHER SPECIFIED DISORDERS OF PERITONEUM
[2017-01-24] MEDS ORDERED: LEVOFLOXACIN 500 MG IVPB 100 ML IVPB ONE (10:00)
[2017-01-24] MEDS ORDERED: ACETAMINOPHEN 1000 MG/100 ML VIAL (NON FORMULARY) IVPB PRN (10:55)
--- NOTE | 2017-01-24 14:33 | PN ---
Addendum entered and electronically signed by Shawn Montgomery RES 01/25/17 23: 03: EDIT: pt had no bowel movement, started her menses today Original Note: Physical Exam: SUBJECTIVE: Patient seen and examined. was unsure if she was passing gas. c/o abdominal pain. crying due to feeling overwhelmed about her situation. pain was controlled with dilaudid. OBJECTIVE: Vital Signs Period Temp Pulse Resp BP Sys/Suárez Pulse Ox Last 24 Hr 97.6 F-98.6 F 86-118 15-24 118-156/70-108 98-100 GENERAL: The patient is awake, alert, and fully oriented, in no acute distress. HEAD: Normal with no signs of trauma. EYES: PERRL, extraocular movements intact, sclera anicteric, conjunctiva clear. No ptosis. ENT: nares patent, oropharynx clear without exudates, moist mucous membranes. NECK: Trachea midline, full range of motion, supple. LUNGS: Breath sounds equal, clear to auscultation bilaterally, no wheezes, no crackles, no accessory muscle use. HEART: Regular rate and rhythm, S1, S2 without murmur, rub or gallop. ABDOMEN: Soft, tender, nondistended, hypoactive bowel sounds, well-approximated midline incision with geovany extending from epigastrium to mid abdomen, no discharge, no surrounding erythema. EXTREMITIES: 2+ pulses, warm, well-perfused, no edema. NEUROLOGICAL: Cranial nerves II through XII grossly intact. Normal speech PSYCH: sad, normal affect Laboratory Results - last 24 hr 01/24/17 01/24/17 07:10 07:10 WBC 18.6 H RBC 3.56 L D Hgb 9.9 L D Hct 30.7 L D MCV 86.3 MCHC 32.3 RDW 20.5 H D Plt Count 542 H MPV 8.4 Sodium 140 Potassium 3.9 Chloride 107 Carbon Dioxide 18 L D Anion Gap 15 BUN 6 L D Creatinine 0.4 L Random Glucose 77 D Calcium 9.2 Acetaminophen (Ofirmev Injection -) 590 mg IVPB Q6H PRN PRN Reason: FEVER OR PAIN Stop: 01/25/17 04:56 Last Admin: 01/24/17 15:34 Dose: 590 mg Lactated Ringer's (Lactated Ringers Solution) 1,000 mls @ 75 mls/hr IV ASDIR [facility] Last Admin: 01/24/17 15:35 Dose: 75 mls/hr Pantoprazole Sodium (Protonix 40mg Ivpb (Pre-Docked)) 100 mls @ 200 mls/hr IVPB DAILY [facility] ASSESSMENT/PLAN: 31 yr old woman with CIRILO requiring prbc transfusions, HTN, depression, migraines , s/p embolization of pseudoaneurysm of GDA communication with duodenum, presented with abdominal pain found to have perforated pyloric channel ulcer, s/ p garcia patch closure. #POD 1 - NG tube in place output: 250cc overnight, NPO - mejia removed - pain controlled with IV dilauded and IV tylenol - had bowel movement - PPI IV - IVF lactated - incentive spirometry - OOB #Leucocytosis - keven reactive to surgery, afebrile, low suspicion for infectious cause - treated with flagyl and levaquin marielena-op, will consider restarting if fever - bld cx, ucx, and peritoneal fluid cx NGTD #CIRILO - H/H stable - once taking po, will add iron supplementation #Depression - not on home medications - will monitor mood #dvt - SCD diet -npo Visit type - Emergency Visit Emergency Visit: No - New Patient This patient is new to me today: No - Critical Care Critical Care patient: No - Discharge Referral Referred to [facility] Med P.C.: No
--- NOTE | 2017-01-24 15:08 | PN ---
Teaching Attending Note Name of Resident: Shawn Montgomery ATTENDING PHYSICIAN STATEMENT I saw and evaluated the patient. I reviewed the resident's note and discussed the case with the resident. I agree with the resident's findings and plan as documented. SUBJECTIVE: no fever or chills , has no abd pain at time of evaluation around 12 pm. dilaudid IV worked for her . OBJECTIVE: NAD , tearful . MMM Cv : RRR ABd : soft , slightly distended , ttp in all quadrants , surgical dressing at mid line ASSESSMENT AND PLAN: 31 y/o lady with h/o migraines , Iorn def anemia , communicating pseudo- aneurysm in gastroduodenal artery , s/p imbolization , she presneted with abd pain , was found to have perforation of pyloric channel 1- perforation of pyloric channel s/p Paulie patch , POD 1 . Has a hx of communicating pseudo-aneurysm in gastroduodenal artery , s/p imbolization per records obtained from OSH doing well on PRN dialudid . will continue IV tylenol IVF NGT monitor urine out put off mejia marielena-op abx, probably last day today . leukocytosis worse due to surgical stress, no fever or evidence of infection add PPI 2- iron def anemia : stable Hb . will give irion supp when able totake po 3- DVT px , SCDs for now Current Medications Generic Name Dose Route Start Last Admin Trade Name Freq PRN Reason Stop Dose Admin Acetaminophen 590 mg 01/24/17 14:32 Ofirmev Injection - IVPB 01/25/17 04:56 Q6H PRN FEVER OR PAIN Metronidazole 100 mls @ 100 mls/hr 01/23/17 18:00 01/24/17 10:21 Flagyl 500mg Premixed Ivpb - IVPB 01/24/17 17:59 100 mls/hr Q8H-IV EMILY Administration Lactated Ringer's 1,000 mls @ 75 mls/hr 01/23/17 15:00 Lactated Ringers Solution IV ASDIR EMILY Pantoprazole Sodium 100 mls @ 200 mls/hr 01/25/17 10:00 Protonix 40mg Ivpb (Pre-Docked) IVPB DAILY EMILY
[2017-01-24] MEDS: ACETAMINOPHEN 1000 MG/100 ML VIAL (NON FORMULARY) IVPB PRN ×2 (15:34→20:38)
[2017-01-24] MEDS: LACTATED RINGERS SOLUTION 1,000 ML IV SCH (15:35)
[2017-01-24] MEDS ORDERED: morphine CARPU-JECT 2 MG/1 ML DISP.SYRIN IVPUSH PRN (20:02)
[2017-01-24] MEDS ORDERED: ACETAMINOPHEN 1000 MG/100 ML VIAL (NON FORMULARY) IVPB ONE (23:25)
[2017-01-24] MEDS ORDERED: SODIUM CHLORIDE 500 ML IV STA (23:25)
[2017-01-25 01:19] LABS: BASOPHIL 0.2 % (0-2.0); EOSINOPHIL 0.1 % (0-4.5); MCH 26.9 pg (25.7-33.7); MCHC 31.8 g/dl (32.0-36.0); MEAN CELL VOLUME 84.7 fl (80-96); MEAN PLT VOLUME 8.2 fl (7.5-11.1); NEUTROPHILS 90.2 % (42.8-82.8); PLATELET COUNT 694 K/MM3 (134-434); RDW 20.3 % (11.6-15.6)
[2017-01-25 01:44] LABS: CREATININE 0.3 mg/dL (0.55-1.02)
[2017-01-25] MEDS: HYDROmorphone HCL CARPU-JECT 1 MG/1 ML DISP.SYRIN IVPB PRN ×4 (03:16→23:13)
[2017-01-25] MEDS ORDERED: METOPROLOL TARTRATE 5 MG/5 ML VIAL IVPUSH PRN (03:39)
[2017-01-25] MEDS: METOPROLOL TARTRATE 5 MG/5 ML VIAL IVPB PRN ×2 (04:09→12:04)
[2017-01-25] MEDS: LACTATED RINGERS SOLUTION 1,000 ML IV SCH ×3 (07:17→12:31)
--- NOTE | 2017-01-25 07:26 | PN ---
Physical Exam: SUBJECTIVE: Patient seen and examined. feels better. less nauseas. using incentive spirometer. pain is controlled. urinated yesterday without hematuria/dysuria. has not passed gas. overight events: required lopressir IV for elevated BP. OBJECTIVE: Vital Signs Period Temp Pulse Resp BP Sys/Suárez Pulse Ox Last 24 Hr 98.1 F-98.6 F 106-127 18-24 141-158/99-113 99 GENERAL: The patient is awake, alert, and fully oriented, in no acute distress. EYES: PERRL, extraocular movements intact, sclera anicteric ENT: nares patent with NG tube in place, oropharynx clear without exudates, moist mucous membranes. NECK: Trachea midline, full range of motion, supple. LUNGS: Breath sounds equal, clear to auscultation bilaterally, no wheezes, HEART: tachycardic rate and regular rhythm, S1, S2 without murmur, rub or gallop. ABDOMEN: Soft, tender, nondistended, hypoactive bowel sounds, well-approximated midline incision with geovany extending from epigastrium to mid abdomen, no discharge, no surrounding erythema. EXTREMITIES: 2+ pulses, warm, well-perfused, no edema. PSYCH: normal affect. normal mood. Laboratory Results - last 24 hr 01/24/17 01/24/17 01/25/17 07:10 07:10 00:34 WBC 18.6 H 18.0 H RBC 3.56 L D 3.51 L Hgb 9.9 L D 9.5 L Hct 30.7 L D 29.7 L MCV 86.3 84.7 MCHC 32.3 31.8 L RDW 20.5 H D 20.3 H Plt Count 542 H 694 H D MPV 8.4 8.2 Neutrophils % 90.2 H Lymphocytes % 6.3 L D Monocytes % 3.2 L Eosinophils % 0.1 Basophils % 0.2 Sodium 140 Potassium 3.9 Chloride 107 Carbon Dioxide 18 L D Anion Gap 15 BUN 6 L D Creatinine 0.4 L Random Glucose 77 D Lactic Acid Calcium 9.2 01/25/17 01/25/17 00:34 00:35 WBC RBC Hgb Hct MCV MCHC RDW Plt Count MPV Neutrophils % Lymphocytes % Monocytes % Eosinophils % Basophils % Sodium 139 Potassium 3.6 Chloride 104 Carbon Dioxide 22 D Anion Gap 13 BUN 4 L D Creatinine 0.3 L D Random Glucose 80 Lactic Acid 0.742 Calcium 9.0 Active Medications Generic Name Dose Route Start Last Admin Trade Name Lance PRN Reason Stop Dose Admin Hydromorphone HCl 1 mg 01/24/17 20:07 01/25/17 03:16 Dilaudid Injection - IVPB 1 mg Q4H PRN Administration PAIN Lactated Ringer's 1,000 mls @ 75 mls/hr 01/23/17 15:00 01/25/17 07:17 Lactated Ringers Solution IV 75 mls/hr ASDIR EMILY Administration Pantoprazole Sodium 100 mls @ 200 mls/hr 01/25/17 10:00 Protonix 40mg Ivpb (Pre-Docked) IVPB DAILY EMILY Metoprolol Tartrate 5 mg 01/25/17 03:49 01/25/17 04:09 Lopressor Injection - IVPB 5 mg Q4H PRN Administration HYPERTENSION ASSESSMENT/PLAN: 31 yr old woman with CIRILO requiring prbc transfusions, HTN, depression, migraines , s/p embolization of pseudoaneurysm of GDA communication with duodenum, presented with abdominal pain found to have perforated pyloric channel ulcer, s/ p garcia patch closure. #POD 2 - NG tube in place with output - pain controlled with IV dilauded 1mg q3hr and IV tylenol - PPI IV daily - incentive spirometry - OOB #HTN with tachycardia - likely from dehydration and pain - IVF lactated @100mls/hr starting at midnight after 125/hr this morning #Leucocytosis - persistent on pod #2 - chest xray with low density retrocardiac, with continued leucocytosis, treat with flagyl and rocephin - bld cx, ucx, and peritoneal fluid cx NGTD #CIRILO - H/H stable - once taking po, will add iron supplementation #Depression - feels better today - not on home medications - will monitor mood #dvt - SCD's, heparin tid diet -npo dietary recommendation to start clinimix 4.25%/5% at 65ml/hr to provide (529kcal , 66gm protein, 1560mL free H2o), will consider if patient continues to be npo Visit type - Emergency Visit Emergency Visit: No - New Patient This patient is new to me today: No - Critical Care Critical Care patient: No - Discharge Referral Referred to [facility] Med P.C.: No
[2017-01-25] MEDS: LABETALOL HCL 5 MG/1 ML (100MG/20 ML VIAL) IVPUSH ONE (08:06)
[2017-01-25] MEDS: METRONIDAZOLE 500 MG PREMIXED 100 ML IVPB SCH (08:06)
[2017-01-25 08:11] LABS: BASOPHIL 0.4 % (0-2.0); EOSINOPHIL 0.2 % (0-4.5); MCH 27.6 pg (25.7-33.7); MCHC 32.1 g/dl (32.0-36.0); MEAN CELL VOLUME 85.8 fl (80-96); MEAN PLT VOLUME 8.1 fl (7.5-11.1); NEUTROPHILS 89.3 % (42.8-82.8); PLATELET COUNT 665 K/MM3 (134-434); RDW 20.8 % (11.6-15.6); WHITE BLOOD COUNT 17.1 K/mm3 (4.0-10.0)
[2017-01-25 08:51] LABS: CALCIUM 8.9 mg/dL (8.5-10.1)
[2017-01-25 08:52] LABS: CREATININE 0.3 mg/dL (0.55-1.02)
--- NOTE | 2017-01-25 09:22 | MSN ---
Progress Note (short form) - Note Progress Note: Saw patient this AM. Patient was complaining of no new complaints this morning. Patient is still NPO with 1000 total cc of drainage. Patient states that pain is now a 5/10 on both upper and lower quadrants of abdominal area. Overnight, patient complained of 9/10 sharp pain but claims that the pain was relieved by the Dilaudid. Patient has been using incentive spirometry and has been able to walk to the bathroom and back with some assistance. Patient has had 400 cc of urine output. Patient's BP was increased at 157/113 (4am) and was started on Lopressor for control. CXR findings show possibly new infiltrate. Due to patient 's continually elevated WBC (18.0 to 17.1), will start IV Metronidazole and Ceftriaxone for antibacterial coverage. Will increase patient's IV Fluid because patient's volume depleted. Plan is to continue monitoring patient's labs and pain. Continue using spirometry. Current Medications Current Medications Generic Name Dose Route Start Last Admin Trade Name Freq PRN Reason Stop Dose Admin Heparin Sodium (Porcine) 5,000 unit 01/25/17 14:15 Heparin - SQ TID EMILY Hydromorphone HCl 1 mg 01/25/17 12:21 Dilaudid Injection - IVPB Q3H PRN PAIN Pantoprazole Sodium 100 mls @ 200 mls/hr 01/25/17 10:00 01/25/17 10:09 Protonix 40mg Ivpb (Pre-Docked) IVPB 200 mls/hr DAILY EMILY Administration Ceftriaxone Sodium 50 mls @ 100 mls/hr 01/25/17 12:45 01/25/17 12:31 Rocephin 1gm Ivpb (Pre-Docked) IVPB 100 mls/hr DAILY EMILY Administration Metronidazole 50 mls @ 50 mls/hr 01/25/17 13:00 01/25/17 13:21 Flagyl 250mg Premixed Ivpb - IVPB 50 mls/hr Q8H-IV EMILY Administration Metoprolol Tartrate 5 mg 01/25/17 12:16 Lopressor Injection - IVPB Q4H PRN HYPERTENSION Vital Signs Period Temp Pulse Resp BP Sys/Suárez Pulse Ox Last 24 Hr 98.1 F-98.6 F 106-127 18-24 134-158/91-113 99 GENERAL: Alert, oriented. Patient in no apparent distress HEAD: Normal with no signs of trauma. EYES: PERRL, extraocular movements intact, sclera anicteric, conjunctiva clear. No ptosis. ENT: Ears normal, nares patent, oropharynx clear without exudates, moist mucous membranes. NECK: Trachea midline, full range of motion, supple. LUNGS: Breath sounds equal, slight congestion throughout, no wheezes, no crackles, no accessory muscle use. HEART: Regular rate and rhythm, S1, S2 without murmur, rub or gallop. ABDOMEN: Soft, tender. 5/10 pain in upper and lower quadrants. Midline surgical lesion noted with geovany, no drainage EXTREMITIES: 2+ pulses, warm, well-perfused, no edema. NEUROLOGICAL: Cranial nerves II through XII grossly intact. Normal speech, gait not observed. PSYCH: Normal mood, normal affect. 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, PUD, iron deficiency anemia, HTN, depression, migraine headaches, and ovarian cysts Repair of perforated viscus Change from IV Dialudid Q4H to Q3H PRN for better control of pain Continue IVF Lactated Ringers 125 mg/hour for a total of ten hours and then switch to 100 mg/hr (@12:30am 01/26/17) Starting Metronidazole and Ceftriaxone IV due to continually elevated WBC after two days post-op Pt will continue to be NPO, NGT will remain, 1000 total cc of drainage Continue to monitor I/O Continue incentive spirometry CXR done yesterday shows possible atelectasis or new infiltrate, continue to monitor labs Iron Deficiency Anemia Continue to monitor Hb, transfuse if <7.0 Start IV Iron once patient can tolerate PO intake PUD Continue Protonix 40 mg ivpb HTN Continue Lopressor 5mg IVPB Q4H PRN DVT prophylaxis SCD bilaterally Disposition: Continue to monitor patient for labs and pain, continue spirometry
[2017-01-25] MEDS: PANTOPRAZOLE SODIUM 100 ML IVPB SCH (10:09)
--- NOTE | 2017-01-25 10:18 | PN ---
Progress Note (short form) - Note Progress Note: Attending Surgeon POD # 2 s/p Paulie patch closure perforated ulcer No flatus; c/o about the NGT; voiding VSS AF abdomen soft slightly distended and tympanitic; dressing c/d/i; o/w negative. labs noted/ NGT output noted IMP: stable post op PLAN: Continue NPO/NGT/IVF/OOB walkinh/pulmonart toilet Malick Robin MD FACS
--- NOTE | 2017-01-25 11:57 | OP ---
DATE OF OPERATION: 01/23/2017 PREOPERATIVE DIAGNOSIS: Perforated viscus. POSTOPERATIVE DIAGNOSIS: Perforated viscus secondary to perforated pyloric channel ulcer. PROCEDURE: Laparotomy and Paulie patch closure of perforated pyloric channel ulcer. SURGEON: Malick Robin MD FLAGGER: Wellington Ennis PA-C ANESTHESIA: General. OPERATIVE FINDINGS: There was a perforation of the anterior pyloric channel consistent with a perforated ulcer. There was gross contamination of the upper peritoneal cavity by stomach and duodenal contents. The rest of the findings were unremarkable. DESCRIPTION OF PROCEDURE: The patient was placed on the operating table in supine position, and after the induction of general anesthesia, the patient's abdomen was prepped with ChloraPrep and draped in sterile fashion. A timeout was taken, and then, the peritoneal cavity was entered through a midline incision from xiphoid to umbilicus. The previously noted findings were observed. Omentum from the transverse colon was mobilized, and then, 3-0 silk sutures were placed around the area of the perforation and omentum laid over the perforation and the sutures tied over the omentum to affect a Paulie patch closure of the perforation. Copious irrigation of the abdomen was then carried out until the effluent was clear. Position of the nasogastric tube was confirmed in the stomach, and then, the peritoneal cavity was closed in a single layer using continuous No. 1 looped PDS suture. The subcutaneous tissue was irrigated, and the skin edges reapproximated with surgical geovany. Dry sterile dressings were placed, and the procedure terminated at this point. The patient aroused from general anesthesia and transferred to the postanesthesia care unit in stable condition, awake and alert. ESTIMATED BLOOD LOSS: 25 mL. REPLACEMENTS: Crystalloid. DRAINS: None. SPECIMENS: None. At the completion of the procedure, needle, instrument, and sponge count were correct. I, Malick Robin, was physically present in the operating room from the time the patient was placed on the operating table until she was transferred to the postanesthesia care unit in my accompaniment. MD EUN [id number]
[2017-01-25] MEDS ORDERED: METOPROLOL TARTRATE 5 MG/5 ML VIAL IVPB PRN (12:16)
[2017-01-25] MEDS: CEFTRIAXONE 50 ML IVPB SCH (12:31)
--- NOTE | 2017-01-25 13:14 | PN ---
Progress Note (short form) - Note Progress Note: Anesthesia post op Pt seen and examined S:Alert and awake O: Vital Signs Temperature 98.4 F 01/25/17 11:00 Pulse Rate 120 H 01/25/17 12:04 Respiratory Rate 18 01/25/17 11:00 Blood Pressure 153/106 01/25/17 12:04 O2 Sat by Pulse Oximetry (%) 99 01/24/17 22:00 CBC, BMP 01/25/17 06:52 01/25/17 06:52 A/P: Current Active Problems Abdominal pain (Acute) Acute abdomen (Acute) Intra-abdominal free air of unknown etiology (Acute) Perforated bowel (Acute) SIRS (systemic inflammatory response syndrome) (Acute) Tachycardia (Acute) Thrombocythemia (Acute) UTI (urinary tract infection) (Acute) Anemia (Chronic) Constipation (Chronic) Depression (Chronic) Hypertension (Chronic) s/p extra lap gastric ulcer repair 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
[2017-01-25] MEDS: METRONIDAZOLE PREMIXED IVPB 50 ML IVPB SCH ×2 (13:21→18:55)
[2017-01-25] MEDS: HEPARIN NA (PORCINE) 5,000 UNITS/ML 1ML VIAL SQ SCH ×2 (14:56→20:59)
--- NOTE | 2017-01-25 16:22 | PN ---
Teaching Attending Note Name of Resident: Shawn Montgomery ATTENDING PHYSICIAN STATEMENT I saw and evaluated the patient. I reviewed the resident's note and discussed the case with the resident. I agree with the resident's findings and plan as documented. SUBJECTIVE: no fever ro chills , abd pain is controlled with dilaudid and tylenol, but interval of 4 hrs is too long . did not pass gas yet . OBJECTIVE: NAD MMM Cv : RRR, tachycardic ABd : soft , slightly distended , minimal ttp in all quadrants , surgical dressing at mid line ASSESSMENT AND PLAN: 31 y/o lady with h/o migraines , Iorn def anemia , communicating pseudo- aneurysm in gastroduodenal artery , s/p imbolization , she presneted with abd pain , was found to have perforation of pyloric channel 1- Perforation of pyloric channel s/p Paulie patch , POD 2 . doing well , no flatus yet . - increase dilaudid frequency to q 3 hr -IV tylenol -increase IVF to 125 x 10 hrs and then to 100 cc /hr after that. - cont NGT - place pt on CTX and flagyl due to persistent leukocytosis. follow blood cx and peritoneal fluid cx - cont PPI 2- Tachycardia : likely due to pain and volume depletion ( net neg x 3 L yesterday ) . - control pain - increase IVF as above 3- Iron def anemia : stable Hb . will give iron supp when able to take po 4- DVT px , SCDs and heparin sq
[2017-01-25] MEDS ORDERED: PT OWN MED DRAWER 7, Y5N ONE (18:12)
[2017-01-26] MEDS: LACTATED RINGERS SOLUTION 1,000 ML IV SCH ×4 (00:05→22:05)
[2017-01-26] MEDS ORDERED: PT OWN MED DRAWER 7, Y5N ONE ×2 (00:48→17:45)
[2017-01-26] MEDS: METRONIDAZOLE PREMIXED IVPB 50 ML IVPB SCH ×3 (01:11→18:25)
[2017-01-26] MEDS: HYDROmorphone HCL CARPU-JECT 1 MG/1 ML DISP.SYRIN IVPB PRN ×3 (02:17→17:33)
[2017-01-26] MEDS: HEPARIN NA (PORCINE) 5,000 UNITS/ML 1ML VIAL SQ SCH ×3 (06:02→21:19)
[2017-01-26 07:10] LABS: BASOPHIL 0.4 % (0-2.0); EOSINOPHIL 1.1 % (0-4.5); MCH 27.3 pg (25.7-33.7); MEAN CELL VOLUME 85.2 fl (80-96); MEAN PLT VOLUME 7.9 fl (7.5-11.1); NEUTROPHILS 83.7 % (42.8-82.8); PLATELET COUNT 820 K/MM3 (134-434); RDW 20.6 % (11.6-15.6); WHITE BLOOD COUNT 14.5 K/mm3 (4.0-10.0)
[2017-01-26 07:36] LABS: ANISOCYTOSIS 2+; HYPOCHROMIA 1+; MICROCYTOSIS FEW; PLATELET ESTIMATE INCREASED (NORMAL); POIKILOCYTOSIS 1+; POLYCHROMASIA FEW
[2017-01-26 07:37] LABS: OVALOCYTES 1+; TARGET CELLS 1+
[2017-01-26 07:38] LABS: CALCIUM 8.9 mg/dL (8.5-10.1); CREATININE 0.3 mg/dL (0.55-1.02)
[2017-01-26] MEDS: PANTOPRAZOLE SODIUM 100 ML IVPB SCH (09:02)
--- NOTE | 2017-01-26 10:10 | PN ---
Progress Note (short form) - Note Progress Note: Attending Surgeon POD #3 s/p Paulie patch closure of perforated pyloric channel ulcer No c/o; no flatus VSS AF abdomen-soft/flat/suture line c/d/i labs; i/o noted; peritoneal culture was negative. IMP: Doing well post op PLAN:Continue present tx.; await return of bowel function.
[2017-01-26] MEDS: CEFTRIAXONE 50 ML IVPB SCH (11:43)
--- NOTE | 2017-01-26 15:34 | MSN ---
Progress Note (short form) - Note Progress Note: Saw patient this AM. Patient did not have any new complaints overnight. Patient claims that her pain is now a 4/10 and is improving with pain medication. Patient stated that she passed gas at about 7:30am for the first time post-op. Patient has had a positive net balance today indicating good volume status. Will continue to monitor patient's labs and pain. Will change Dilaudid dosage from 1 mg to 0.5 mg Q3H. Will continue Flagyl and Rocephin for 5 more days for a total of 7 days. Patient should continue ambulation and incentive spirometry Current Medications Generic Name Dose Route Start Last Admin Trade Name Freq PRN Reason Stop Dose Admin Heparin Sodium (Porcine) 5,000 unit 01/25/17 14:15 01/26/17 13:28 Heparin - SQ 5,000 unit TID EMILY Administration Hydromorphone HCl 1 mg 01/25/17 12:21 01/26/17 13:27 Dilaudid Injection - IVPB 1 mg Q3H PRN Administration PAIN Pantoprazole Sodium 100 mls @ 200 mls/hr 01/25/17 10:00 01/26/17 09:02 Protonix 40mg Ivpb (Pre-Docked) IVPB 200 mls/hr DAILY EMILY Administration Ceftriaxone Sodium 50 mls @ 100 mls/hr 01/25/17 12:45 01/26/17 11:43 Rocephin 1gm Ivpb (Pre-Docked) IVPB 100 mls/hr DAILY EMILY Administration Metronidazole 50 mls @ 50 mls/hr 01/25/17 13:00 01/26/17 01:11 Flagyl 250mg Premixed Ivpb - IVPB 50 mls/hr Q8H-IV EMILY Administration Lactated Ringer's 1,000 mls @ 100 mls/hr 01/26/17 00:00 01/26/17 00:05 Lactated Ringers Solution IV 100 mls/hr ASDIR EMILY Administration Metoprolol Tartrate 5 mg 01/25/17 12:16 Lopressor Injection - IVPB Q4H PRN HYPERTENSION Vital Signs Period Temp Pulse Resp BP Sys/Suárez Pulse Ox Last 24 Hr 98 F-98.3 F 90-124 20-20 134-146/86-96 GENERAL: Alert, oriented. Patient in no apparent distress HEAD: Normal with no signs of trauma. EYES: PERRL, extraocular movements intact, sclera anicteric, conjunctiva clear. No ptosis. ENT: Ears normal, nares patent, oropharynx clear without exudates, moist mucous membranes. NECK: Trachea midline, full range of motion, supple. LUNGS: Breath sounds equal, slight congestion throughout, no wheezes, no crackles, no accessory muscle use. HEART: Regular rate and rhythm, S1, S2 without murmur, rub or gallop. ABDOMEN: Soft, tender. 4/10 pain in upper and lower quadrants. Normoactive bowel sounds Midline surgical lesion noted with geovany, no drainage EXTREMITIES: 2+ pulses, warm, well-perfused, no edema. NEUROLOGICAL: Cranial nerves II through XII grossly intact. Normal speech, gait not observed. PSYCH: Normal mood, normal affect. 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, PUD, iron deficiency anemia, HTN, depression, migraine headaches, and ovarian cysts Repair of perforated viscus Change from IV Dialudid 1 mg to 0.5 mg Q3H due to patient's pain being better Continue IVF Lactated Ringers 100 mLs/hr Continue Metronidazole and Ceftriaxone IV for five more days (7 days total) Pt will continue to be NPO, NGT will remain for now Continue to monitor I/O Continue incentive spirometry CXR done 01/24/17 shows possible atelectasis or new infiltrate, continue to monitor labs Iron Deficiency Anemia Continue to monitor Hb, transfuse if <7.0 Start IV Iron once patient can tolerate PO intake PUD Continue Protonix 40 mg ivpb HTN Continue Lopressor 5mg IVPB Q4H PRN DVT prophylaxis SCD bilaterally Heparin 5,000 units SQ Disposition: Continue to monitor patient for labs and pain, continue spirometry
--- NOTE | 2017-01-26 16:00 | PN ---
Physical Exam: SUBJECTIVE: Patient seen and examined at bedside. no complaints +flatus OBJECTIVE: Vital Signs Period Temp Pulse Resp BP Sys/Suárez Pulse Ox Last 24 Hr 98 F-98.3 F 90-124 20-20 134-146/86-96 GENERAL: The patient is awake, alert, and fully oriented, in no acute distress. HEAD: Normal with no signs of trauma. EYES: PERRL ENT: moist mucous membranes. NECK: Trachea midline, full range of motion, supple. LUNGS: Breath sounds equal, clear to auscultation bilaterall HEART: Regular rate and rhythm, S1, S2 ABDOMEN: Soft, slight incisional tenderness, nondistended, hypoactive bowel sounds. NGT in place with bilious drainage NEUROLOGICAL: Cranial nerves II through XII grossly intact. Normal speech, SKIN: Warm, dry Laboratory Results - last 24 hr 01/26/17 01/26/17 06:10 06:10 WBC 14.5 H RBC 3.18 L Hgb 8.7 L Hct 27.1 L MCV 85.2 MCHC 32.0 RDW 20.6 H Plt Count 820 H D MPV 7.9 Neutrophils % 83.7 H Lymphocytes % 9.6 D Monocytes % 5.2 Eosinophils % 1.1 D Basophils % 0.4 Platelet Estimate Increased Platelet Comment No clumping noted Polychromasia Few Hypochromic-Microcytic 1+ Poikilocytosis 1+ Anisocytosis 2+ Microcytosis Few Macrocytosis 1+ Target Cells 1+ Ovalocytes 1+ Sodium 138 Potassium 3.7 Chloride 101 Carbon Dioxide 21 Anion Gap 16 BUN 7 Creatinine 0.3 L Random Glucose 64 L Calcium 8.9 Active Medications Generic Name Dose Route Start Last Admin Trade Name Freq PRN Reason Stop Dose Admin Heparin Sodium (Porcine) 5,000 unit 01/25/17 14:15 01/26/17 13:28 Heparin - SQ 5,000 unit TID EMILY Administration Hydromorphone HCl 0.5 mg 01/26/17 15:58 Dilaudid Injection - IVPB Q3H PRN PAIN Pantoprazole Sodium 100 mls @ 200 mls/hr 01/25/17 10:00 01/26/17 09:02 Protonix 40mg Ivpb (Pre-Docked) IVPB 200 mls/hr DAILY EMILY Administration Ceftriaxone Sodium 50 mls @ 100 mls/hr 01/25/17 12:45 01/26/17 11:43 Rocephin 1gm Ivpb (Pre-Docked) IVPB 100 mls/hr DAILY EMILY Administration Metronidazole 50 mls @ 50 mls/hr 01/25/17 13:00 01/26/17 01:11 Flagyl 250mg Premixed Ivpb - IVPB 50 mls/hr Q8H-IV EMILY Administration Lactated Ringer's 1,000 mls @ 100 mls/hr 01/26/17 00:00 01/26/17 00:05 Lactated Ringers Solution IV 100 mls/hr ASDIR EMILY Administration Metoprolol Tartrate 5 mg 01/25/17 12:16 Lopressor Injection - IVPB Q4H PRN HYPERTENSION ASSESSMENT/PLAN: 31F with perforated viscus s/p garcia patch repair. perforated viscus s/p repair POD 3 decrease dilaudid to 0.5mg IV PRN f/u surgery continue NPO for now NGT with bilious output Protonix IV daily Check lytes including magnesium and phos in AM Trend CBC continue Rocephin/flagyl day 2 of ABx HTN Metoprolol 5mg IVPB PRN BP controlled at this time Tachycardia: Likely from volume loss vs SIRS after surgery continue metoprolol PRN continue LR @ 100ml/hr Leuokocytosis Cultures no growth so far Improving with Abx today WBC count is 14.5 down from 17.1 Continue rocephin/flagyl CXR shows possible infiltrate if spikes fever of WBC count worsens will do another CXR Incentive spirometry Iron deficiency anemia: Hb stable at this time 8.6 Transfuse PRN-no indication at this time outpt follow up Depression Not active today will monitor FEN: LR @ 100ml/hr no electrolyte issues NPO PPx: HSQ Protonix OOB-->ambulate as tolerated Visit type - Emergency Visit Emergency Visit: Yes ED Registration Date: 01/23/17 Care time: The patient presented to the Emergency Department on the above date and was hospitalized for further evaluation of their emergent condition. - New Patient This patient is new to me today: Yes Date on this admission: 01/26/17 - Critical Care Critical Care patient: No
--- NOTE | 2017-01-26 19:47 | PN ---
Teaching Attending Note Name of Resident: Sudhir Jeff ATTENDING PHYSICIAN STATEMENT I saw and evaluated the patient. I reviewed the resident's note and discussed the case with the resident. I agree with the resident's findings and plan as documented. SUBJECTIVE: no fever or chills, abd pain is well controlled . has passed gas today OBJECTIVE: NAD MMM Cv : RRR, tachycardic ABd : soft , ND , minimal ttp in all quadrants , surgical scar at mid line , with geovany. NL BS ASSESSMENT AND PLAN: 31 y/o lady with h/o migraines , Iorn def anemia , communicating pseudo- aneurysm in gastroduodenal artery , s/p imbolization , she presneted with abd pain , was found to have perforation of pyloric channel 1- Perforation of pyloric channel s/p Paulie patch , POD 3 . doing well , passed gas -decrease dialudid to 0.5 q 3 hr -cont IV tylenol -cont hydration - cont NGT. hopefully can feed tomorrow - cont CTX and flagyl day 2/7 - cont PPI 2- Tachycardia : likely due to pain and volume depletion - control pain - cont IVF 3- Iron def anemia : stable Hb . will give iron supp when able to take po 4- DVT px , SCDs and heparin sq
[2017-01-27] MEDS ORDERED: PT OWN MED DRAWER 7, Y5N ONE (01:18)
[2017-01-27] MEDS: METRONIDAZOLE PREMIXED IVPB 50 ML IVPB SCH ×2 (01:21→09:16)
[2017-01-27] MEDS: HYDROmorphone HCL CARPU-JECT 1 MG/1 ML DISP.SYRIN IVPB PRN ×3 (06:35→20:29)
[2017-01-27 08:45] LABS: MCH 27.2 pg (25.7-33.7); MCHC 31.6 g/dl (32.0-36.0); MEAN CELL VOLUME 86.1 fl (80-96); MEAN PLT VOLUME 7.6 fl (7.5-11.1); PLATELET COUNT 910 K/MM3 (134-434); RDW 20.3 % (11.6-15.6)
[2017-01-27] MEDS: CEFTRIAXONE 50 ML IVPB SCH (09:16)
[2017-01-27] MEDS: PANTOPRAZOLE SODIUM 100 ML IVPB SCH (09:16)
[2017-01-27 09:22] LABS: MAGNESIUM 1.9 mg/dL (1.8-2.4)
[2017-01-27 09:24] LABS: CREATININE 0.2 mg/dL (0.55-1.02)
--- NOTE | 2017-01-27 10:07 | PN ---
Progress Note (short form) - Note Progress Note: POD #4 Pt without any nausea. She passed flatus x1, no BM. States that her abd is less distended. Vital Signs Period Temp Pulse Resp BP Sys/Suárez Pulse Ox Last 24 Hr 98.2 F-99.1 F 98-123 20-20 131-160/81-103 NGT-600ml light brown drainage PE: GEN: appears comfortable CV: RR, mild tachycardic Lungs: CTA b/l Abd: soft, non-distended, non-tender. Inc c/d/i with geovany LE: no calf tenderness CBC, BMP 01/27/17 06:15 01/27/17 06:15 Microbiology 01/23/17 14:00 Peritoneal Fluid Gram Stain - Final 01/23/17 14:00 Peritoneal Fluid Anaerobic Culture - Final NO GROWTH OF AEROBIC ORGANISMS AFTER 48 HOURS INCUBATION NO ANAEROBES WERE ISOLATED 01/23/17 10:33 Urine - Urine Gonzalez Urine Culture - Final NO GROWTH OBTAINED 01/23/17 08:35 Blood - Peripheral Venous Blood Culture - Preliminary NO GROWTH OBTAINED AFTER 96 HOURS, INCUBATION TO CONTINUE FOR 1 DAYS. 01/23/17 08:35 Blood - Peripheral Venous Blood Culture - Preliminary NO GROWTH OBTAINED AFTER 96 HOURS, INCUBATION TO CONTINUE FOR 1 DAYS. A/P: 31 yo female s/p exp lap with repair of perforated pyloric ulcer with Paulie patch Doing well clinically, s/w Dr. Robin and NGT clamped and will check residuals in 4 hours Continue oob to chair/ambulate Mild tachycardia, she remains afebrile. Cultures wth NGTD, discontinue IV abx Cont IV protonix, GI ppx Hep SQ-DVT ppx
--- NOTE | 2017-01-27 10:37 | PN ---
Physical Exam: SUBJECTIVE: Patient seen and examined complains of cough sitting in chair NGT clamped by surgical team OBJECTIVE: Vital Signs Period Temp Pulse Resp BP Sys/Suárez Pulse Ox Last 24 Hr 97.9 F-99.1 F 98-123 18-20 131-160/81-103 NGT-600ml since midnight GENERAL: The patient is awake, alert, and fully oriented, in no acute distress. HEAD: Normal with no signs of trauma. EYES: PERRL ENT: moist mucous membranes. NECK: Trachea midline, full range of motion, supple. LUNGS: left side is clear to auscultation Right side with coarse breath sounds HEART: tachycardia ABDOMEN: Soft,non tender, nondistended, hypoactive bowel sounds. NGT in place brown drainage. Incision C/D/I open to air with geovany in place no fluctuance or drainage noted NEUROLOGICAL: Cranial nerves II through XII grossly intact. Normal speech, SKIN: Warm, dry Laboratory Results - last 24 hr 01/27/17 01/27/17 06:15 06:15 WBC 13.0 H RBC 2.93 L Hgb 8.0 L Hct 25.3 L MCV 86.1 MCHC 31.6 L RDW 20.3 H Plt Count 910 H MPV 7.6 Sodium 138 Potassium 3.9 Chloride 103 Carbon Dioxide 21 Anion Gap 14 BUN 7 Creatinine 0.2 L D Random Glucose 54 L Calcium 9.0 Phosphorus 4.0 D Magnesium 1.9 Active Medications Generic Name Dose Route Start Last Admin Trade Name Freq PRN Reason Stop Dose Admin Heparin Sodium (Porcine) 5,000 unit 01/25/17 14:15 01/27/17 00:00 Heparin - SQ 5,000 unit TID EMILY Administration Hydromorphone HCl 0.5 mg 01/26/17 15:58 01/27/17 06:35 Dilaudid Injection - IVPB 0.5 mg Q3H PRN Administration PAIN Pantoprazole Sodium 100 mls @ 200 mls/hr 01/25/17 10:00 01/27/17 09:16 Protonix 40mg Ivpb (Pre-Docked) IVPB 200 mls/hr DAILY EMILY Administration Lactated Ringer's 1,000 mls @ 100 mls/hr 01/26/17 00:00 01/26/17 22:05 Lactated Ringers Solution IV 100 mls/hr ASDIR EMILY Administration Metoprolol Tartrate 5 mg 01/25/17 12:16 Lopressor Injection - IVPB Q4H PRN HYPERTENSION ASSESSMENT/PLAN: 31F with perforated viscus s/p garcia patch repair. perforated viscus s/p repair POD 4 dilaudid 0.5mg IV PRN pain switch to PO percocet if able to tolerate PO later today continue NPO for now-pending NG tube being pulled might be able to have CLD today NGT with 100ml/hr output in last 6 hours-clamped by surgical team and will check residuals in 4 hours if has small amount of residual may pull NG tube today Protonix IV daily Electrolytes-WNL Trend CBC -leukocytosis much improved today-13 continue Abx HTN Metoprolol 5mg IVPB PRN BP controlled at this time oral meds if able to take oral later today Thrombocytosis: platelets continue to increase will start aspirin 81mg po daily for now Tachycardia: Likely from volume loss vs SIRS after surgery vs continued volume loss from NG tube continue metoprolol PRN continue LR @ 100ml/hr for now Could be from anemia Leuokocytosis Cultures no growth so far Continue Abx CXR shows possible infiltrate - now has cough will do another CXR today Incentive spirometry Iron deficiency anemia: Hb 8.0 Transfuse PRN-no indication at this time outpt follow up Depression Not active today will monitor FEN: LR @ 100ml/hr no electrolyte issues NPO PPx: HSQ Protonix OOB-->ambulate as tolerated Visit type - Emergency Visit Emergency Visit: Yes ED Registration Date: 01/23/17 Care time: The patient presented to the Emergency Department on the above date and was hospitalized for further evaluation of their emergent condition. - New Patient This patient is new to me today: No - Critical Care Critical Care patient: No
[2017-01-27] MEDS ORDERED: CEFTRIAXONE 1,000 MG in DEXTROSE 5%-WATER - 50 ML IVPB ONE (12:15)
[2017-01-27] MEDS ORDERED: ASPIRIN 81 MG CHEWABLE TABLETS PO SCH (12:15)
--- NOTE | 2017-01-27 13:04 | PN ---
Progress Note (short form) - Note Progress Note: Attending Surgeon POD # 4 Seen and evaluated concur w/ a/p as outlined by PA; NGT residual minimal; NGTd/c 'ed; keep NPO.and continue present tx. Malick Robin MD FACS
[2017-01-27] MEDS: HEPARIN NA (PORCINE) 5,000 UNITS/ML 1ML VIAL SQ SCH ×3 (13:24→21:08)
[2017-01-27] MEDS: LACTATED RINGERS SOLUTION 1,000 ML IV SCH (13:24)
[2017-01-27] MEDS ORDERED: CEFTRIAXONE 50 ML IVPB ONE (13:30)
--- NOTE | 2017-01-27 16:31 | PN ---
Teaching Attending Note Name of Resident: Sudhir Jeff ATTENDING PHYSICIAN STATEMENT I saw and evaluated the patient. I reviewed the resident's note and discussed the case with the resident. I agree with the resident's findings and plan as documented. SUBJECTIVE: no fever or chills, no BAd pain , hungry and wants to eat. no N/V OBJECTIVE: NAD MMM Cv: RRR, tachycardic ( but to improve ) ABd : soft , ND , minimal ttp in all quadrants , surgical scar at mid line , with geovany. NL BS ASSESSMENT AND PLAN: 31 y/o lady with h/o migraines , Iorn def anemia , communicating pseudo- aneurysm in gastroduodenal artery , s/p imbolization , she presneted with abd pain , was found to have perforation of pyloric channel . 1- Perforation of pyloric channel s/p Paulie patch, POD 3 . doing well - Cont pain control - cont hydration. - cont CTX and flagyl day 3/7, leukocytosis improved . - cont PPI - feeding per sx 2- Tachycardia : likely due to pain , volume depletion and anemia - control pain - cont IVF 3- Iron def anemia worse with perforation and surgery : stable Hb. will give iron supp when able to take po 4- DVT px , SCDs and heparin sq
[2017-01-27] MEDS: METRONIDAZOLE 500 MG PREMIXED 100 ML IVPB SCH (17:18)
[2017-01-28] MEDS: HYDROmorphone HCL CARPU-JECT 1 MG/1 ML DISP.SYRIN IVPB PRN (01:01)
[2017-01-28] MEDS: METRONIDAZOLE 500 MG PREMIXED 100 ML IVPB SCH ×3 (01:47→17:12)
[2017-01-28] MEDS: LACTATED RINGERS SOLUTION 1,000 ML IV SCH ×2 (01:53)
[2017-01-28] MEDS: HEPARIN NA (PORCINE) 5,000 UNITS/ML 1ML VIAL SQ SCH ×3 (06:48→21:32)
[2017-01-28 08:16] LABS: MCH 27.4 pg (25.7-33.7); MCHC 32.2 g/dl (32.0-36.0); MEAN CELL VOLUME 85.3 fl (80-96); MEAN PLT VOLUME 7.5 fl (7.5-11.1); PLATELET COUNT 976 K/MM3 (134-434); RDW 20.1 % (11.6-15.6); WHITE BLOOD COUNT 10.8 K/mm3 (4.0-10.0)
--- NOTE | 2017-01-28 08:23 | PN ---
Progress Note (short form) - Note Progress Note: POD#5 Pt states that she passed flatus multiple times overnight, no nausea or emesis. No BM. No complaints of abd pain. Vital Signs Period Temp Pulse Resp BP Sys/Suárez Pulse Ox Last 24 Hr 97.8 F-98.4 F 91-110 18-20 126-140/77-90 PE: GEN: appears comfortable CV: RR, mild tachycardia Lungs: CTA b/l, anteriorly Abd: soft, non-distended, non-tender. Inc midline c/d/i with geovany LE: No calf tenderness CBC, BMP 03/12/17 07:20 A/P: POD #5, s/p exp lap for perforated pyloric channel ulcer/Paulie patch repair Doing well, NGT removed yesterday with no nausea/emesis. She continues to pass flatus. D/w Dr. Robin-izaiah started today. Discontinue IVF after tolerating clears. Cont oob/ambulate. DVT ppx with. Will discontinue aspirin, spoke with the medical team. Her platelets are elevated, recommend heme consult.
[2017-01-28 08:50] LABS: CALCIUM 8.8 mg/dL (8.5-10.1); CREATININE 0.3 mg/dL (0.55-1.02)
[2017-01-28] MEDS: PANTOPRAZOLE SODIUM 100 ML IVPB SCH (09:12)
[2017-01-28] MEDS: cefTRIAXone 1 GM/50 ML BAG (PRE-DOCKED) IVPB SCH (09:12)
[2017-01-28] MEDS ORDERED: CEFTRIAXONE 50 ML IVPB SCH (10:00)
[2017-01-28] MEDS ORDERED: CEFTRIAXONE 1 GM in DEXTROSE 5%-WATER - 50 ML IVPB SCH (10:00)
--- NOTE | 2017-01-28 16:40 | PN ---
Progress Note (short form) - Note Progress Note: Subjective: no fever or chills . no ABd pain , . tolerated clears . Objective: Vital Signs: Last Vital Signs Temp Pulse Resp BP Pulse Ox 97.4 F L 105 H 20 122/75 99 01/28/17 14:00 01/28/17 14:00 01/28/17 14:00 01/28/17 12:00 01/24/17 22:00 Physical Exam: NAD MMM Cv: RRR, slightly tachycardic Abd : soft , ND , minimal ttp in all quadrants , surgical scar at mid line , with geovany. 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 1- Perforation of pyloric channel s/p Paulie patch, POD 4 . doing well - dc dilaudid. add oxycodone - cont hydration. - cont CTX and flagyl day 4/7, leukocytosis improved . will switch to po Abx at dc - cont PPI - probably advance diet to soft. tomorrow 2- Tachycardia : likely due to pain, volume depletion and anemia - control pain - cont IVF 3- Iron def anemia worse with perforation and surgery : stable Hb. start iron supp in AM 4- thrombocytosis : likely reactive . Plt count cont to rise. HEme eval agree with dc ASA as NSAIDs caused her perforation 5- DVT px , SCDs and heparin sq Labs: Imaging: Assessment/Plan: Last Vital Signs Temp Pulse Resp BP Pulse Ox 97.4 F L 105 H 20 122/75 99 01/28/17 14:00 01/28/17 14:00 01/28/17 14:00 01/28/17 12:00 01/24/17 22:00 Visit type - Emergency Visit Emergency Visit: Yes ED Registration Date: 01/23/17 Care time: The patient presented to the Emergency Department on the above date and was hospitalized for further evaluation of their emergent condition. - New Patient This patient is new to me today: No - Critical Care Critical Care patient: No
[2017-01-28] MEDS: oxyCODONE HCL 5 MG TABLET PO PRN ×2 (18:37→22:30)
[2017-01-29] MEDS: METRONIDAZOLE 500 MG PREMIXED 100 ML IVPB SCH ×3 (01:35→17:16)
[2017-01-29] MEDS: oxyCODONE HCL 5 MG TABLET PO PRN (06:33)
[2017-01-29] MEDS: HEPARIN NA (PORCINE) 5,000 UNITS/ML 1ML VIAL SQ SCH ×2 (06:34→13:59)
[2017-01-29 09:10] LABS: BASOPHIL 1.1 % (0-2.0); MCH 27.3 pg (25.7-33.7); MEAN CELL VOLUME 85.1 fl (80-96); MEAN PLT VOLUME 7.6 fl (7.5-11.1); NEUTROPHILS 72.2 % (42.8-82.8); PLATELET COUNT 1047 K/MM3 (134-434); RDW 19.7 % (11.6-15.6); WHITE BLOOD COUNT 10.7 K/mm3 (4.0-10.0)
[2017-01-29] MEDS: PANTOPRAZOLE SODIUM 100 ML IVPB SCH (09:21)
[2017-01-29] MEDS: cefTRIAXone 1 GM/50 ML BAG (PRE-DOCKED) IVPB SCH (09:21)
--- NOTE | 2017-01-29 09:58 | PN ---
Progress Note (short form) - Note Progress Note: Attending Surgeon POD#6 No c/o; passing flatus; no BM; tolertaing clear liquid diet VSS AF abdomen soft/flat/NT; incision c/d/i and geovany in place. IMP:doing well Plan: Advance diet; continue present tx. Malick Robin MD FACS
[2017-01-29] MEDS ORDERED: LACTATED RINGERS SOLUTION 1,000 ML IV SCH (11:17)
[2017-01-29] MEDS ORDERED: FERROUS SO4 325 MG TABLET (FP) PO SCH (11:45)
--- NOTE | 2017-01-29 12:46 | PN ---
Teaching Attending Note Name of Resident: Sudhir Jeff ATTENDING PHYSICIAN STATEMENT I saw and evaluated the patient. I reviewed the resident's note and discussed the case with the resident. I agree with the resident's findings and plan as documented. SUBJECTIVE: no fever or chills. no abd pain , no N/V . she tolerated clears. had a BM yesterday OBJECTIVE: NAD , AAOx3 CV : RRR Lungs : CTAB ext : no edema ABd : soft, NT, ND , NL BS . 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 1- Perforation of pyloric channel s/p Paulie patch, POD 5 . doing well. tolerated clears. advanced to full liquids - cont pain control with oxycodone - switch Abx to Augmentin , today is day 5/7 . cont fro 2 more days - cont PPI , change to po - advance diet to soft 2- Tachycardia: resolved . looks euvolemic now likely due to pain, volume depletion and anemia - control pain - will dc IVF 3- Iron def anemia worse with perforation and surgery : stable Hb. start iron supp 4- thrombocytosis : likely reactive . Plt count cont to rise. Heme eval pending 5- DVT px. possible dc this evening
--- NOTE | 2017-01-29 13:48 | MSN ---
Progress Note (short form) - Note Progress Note: Saw and evaluated patient this AM. Patient did OK over weekend and overnight. Patient has passed flatus and had one BM overnight. Patient's pain is currently a 2/10 pain and pain medication was switched from Dilaudid to Oxycodone over the weekend. Patient had been switched from NPO to a clear liquid diet yesterday morning. Patient is tolerating diet well. Will switch to soft diet today. Will D/C fluids and will switch IV medications to PO. Patient will start PO Iron supplements today for iron deficiency anemia. Will switch from IV Ceftriaxone and Flagyl to PO Augmentin. Patient will also need Hematology f/u for continually elevated thrombocytosis. Possible D/C tomorrow. Current Medications Generic Name Dose Route Start Last Admin Trade Name Freq PRN Reason Stop Dose Admin Amoxicillin/Clavulanate Potassium 1 tab 01/30/17 08:00 Augmentin - 875mg Tablet PO 01/31/17 17:31 BID@0800,1730 EMILY Ferrous Sulfate 325 mg 01/29/17 11:45 01/29/17 11:45 Feosol - PO 325 mg BID EMILY Administration Heparin Sodium (Porcine) 5,000 unit 01/25/17 14:15 01/29/17 06:34 Heparin - SQ 5,000 unit TID EMILY Administration Pantoprazole Sodium 100 mls @ 200 mls/hr 01/25/17 10:00 01/29/17 09:21 Protonix 40mg Ivpb (Pre-Docked) IVPB 200 mls/hr DAILY EMILY Administration Metronidazole 100 mls @ 100 mls/hr 01/27/17 18:00 01/29/17 09:21 Flagyl 500mg Premixed Ivpb - IVPB 01/30/17 10:00 100 mls/hr Q8H-IV EMILY Administration Metoprolol Tartrate 5 mg 01/25/17 12:16 Lopressor Injection - IVPB Q4H PRN HYPERTENSION Oxycodone HCl 5 mg 01/28/17 16:41 01/29/17 06:33 Roxicodone - PO 5 mg Q4H PRN Administration PAIN Vital Signs Period Temp Pulse Resp BP Sys/Suárez Pulse Ox Last 24 Hr 97.4 F-98.8 F 90-105 18-20 124-135/84-89 98-99 GENERAL: Alert, oriented. Patient in no apparent distress HEAD: Normal with no signs of trauma. EYES: PERRL, extraocular movements intact, sclera anicteric, conjunctiva clear. No ptosis. ENT: Ears normal, nares patent, oropharynx clear without exudates, moist mucous membranes. NECK: Trachea midline, full range of motion, supple. LUNGS: Breath sounds equal, slight congestion throughout, no wheezes, no crackles, no accessory muscle use. HEART: Regular rate and rhythm, S1, S2 without murmur, rub or gallop. ABDOMEN: Soft, tender. 2/10 pain in upper and lower quadrants. Normoactive bowel sounds. Midline surgical lesion noted with geovany, no drainage EXTREMITIES: 2+ pulses, warm, well-perfused, no edema. NEUROLOGICAL: Cranial nerves II through XII grossly intact. Normal speech, gait not observed. PSYCH: Normal mood, normal affect. 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 Will switch from clear liquid to soft Continue to monitor I/O Continue incentive spirometry Iron Deficiency Anemia Stable Continue to monitor Hb, transfuse if <7.0 Start PO Iron 325 mg BID, will switch to TID if can tolerate Thrombocytosis F/U with Hematology for continued elevated platelets PUD Continue Protonix, switch to PO HTN Stable Continue Lopressor, switch to PO DVT prophylaxis Heparin 5,000 units SQ Disposition: Continue to monitor patient for labs and pain, continue spirometry , possible discharge tomorrow
[2017-01-29 14:02] VITALS: BP 128/82; PULSE 98
[2017-01-29 15:06] VITALS: TEMP 98.3
--- NOTE | 2017-01-29 15:57 | CONSULT ---
Consult - text type - Consultation Consultation Note: This is a 31-year-old woman who presented to the ER complaining of abdominal pain. She has been having worsening pain with nausea for several days. She has a history of constipation for which she takes Miralax. She denies vomiting, melena, rectal bleeding, fever, chills, flank pain, dysuria, hematuria, aspirin use, NSAID use, steroid use. She has no appetite and has lost about 4 lbs in the last month. She had an EGD with Dr. Corado on 01/15 - she says he told her she has something metal in her. She had been admitted here on 07/27/16 with abdominal pain and hemoglobin 2.9. Non-contrast CT of the abdomen and pelvis at that time was unremarkable. She was transfused. She developed acute respiratory failure and an acute abdomen. She was intubated. CT of the abdomen and pelvis with contrast showed significant distention of the stomach with narrowing of the distal antral/proximal duodenal region, small amount of air and contrast in and about the narrowed lumen. It was thought she had a retroperitoneal microperforation or pending perforation and that endoscopy would be too risky, so she was transferred to [facility]. PAST MEDICAL HISTORY Anemia Hypertension Depression Migraine headache Ovarian cysts PAST SURGICAL HISTORY None Allergies No Known Drug Allergies Allergy (Verified 01/11/17 10:58) HOME MEDICATIONS 3 Medication Instructions Recorded Tramadol HCl 50 mg PO TID #15 tablet MDD 4 11/15/16 Omeprazole 20 mg PO DAILY 01/23/17 Recent Travel: No Social History: Smoking: Smokes 6 cigarettes/day Alcohol: Denies Drugs: Denies Family History: Unremarkable Last Vital Signs Temp Pulse Resp BP Pulse Ox 98.3 F 98 H 20 128/82 98 01/29/17 15:06 01/29/17 15:06 01/29/17 15:06 01/29/17 14:00 01/29/17 09:00 HEENT: normocephalic/atraumatic Oropharynx: No thrush, No mucositis Neck: Supple Nodes: Without adenopathy Breasts: Without masses Cor: RSR, No murmurs, No gallops Lungs: Clear to P&A Abd: Soft, Normal bowel sounds, No organomegaly Ext:No significant edema Chest x-ray: No acute process CT abd/pelvis: Large free air and free fluid. Surgical clips in region of duodenum. ASSESSMENT/PLAN: This is a 31-year-old woman with a history of iron-deficiency anemia, depression , HTN, migraine headaches, ovarian cysts who comes to the ER with worsening abdominal pain and nausea. Patient had a perforated pyloric channel ulcer s/p garcia patch on 01/23/17 communicating gastroduodenal artery aneurysm We have been consulted regarding rising platelet count PAtient with long standing h/o iron deficiency anemia Suspect reactive thrombocytosis from iron deficiency and post operative state. Unlikely primary myeloproliferative disorder reactive thrombocytosis is not associated with bleeding/thrombotic complications check iron studies/ferritin/JAK2 /bcr;abl Will need close f/u outpatient with primary gear tester -- discussed with patient the need to closely follow up
--- NOTE | 2017-01-29 17:49 | DS ---
Physical Exam: SUBJECTIVE: Patient seen and examined. Feels well no complaints passing flatus tolerating diet OBJECTIVE: Vital Signs Period Temp Pulse Resp BP Sys/Suárez Pulse Ox Last 24 Hr 97.5 F-98.6 F 90-98 18-20 124-134/82-88 98-99 PHYSICAL EXAM GENERAL: The patient is awake, alert, and fully oriented, in no acute distress. HEAD: Normal with no signs of trauma. EYES: PERRL ENT: moist mucous membranes. NECK: Trachea midline, full range of motion, supple. LUNGS: left side is clear to auscultation Right side with coarse breath sounds HEART: tachycardia ABDOMEN: Soft,non tender, nondistended, Incision C/D/I open to air with geovany in place no fluctuance or drainage noted NEUROLOGICAL: Cranial nerves II through XII grossly intact. Normal speech, SKIN: Warm, dry LABS Laboratory Results - last 24 hr 01/29/17 01/29/17 07:30 07:30 WBC 10.7 H RBC 3.00 L Hgb 8.2 L Hct 25.6 L MCV 85.1 MCHC 32.0 RDW 19.7 H Plt Count 1047 H MPV 7.6 Neutrophils % 72.2 Lymphocytes % 14.2 D Monocytes % 9.5 D Eosinophils % 3.0 D Basophils % 1.1 Ferritin 79.716 HOSPITAL COURSE: Date of Admission:01/23/17 Date of Discharge: 01/29/17 31F with history of Iron deficiency anemia HTN presented to the hospital with an acute abdomen. She was found to have a perforated viscus and was taken to the operating room for exploratory laparotomy with garcia patch repair. She tolerated the procedure well and was placed on antibiotics. OR cultures were negative. Her hospital stay was complicated by tachycardia which was likely due to a combination of volume depletion and anemia which has since resolved. She also has thrombocytosis which is likely reactive thrombocytosis from surgery. She was seen by hematology and LUCIAN mutation BCR-ABL and flow cytometry sent out along with iron studies. No aspirin or antiplatelet therapy needed pr hematology. Patient is tolerating regular diet. She is having flatus. Patient is stable for discharge. Will follow up with PMD, Dr. Moscoso from hematology and Dr. Robin from surgery. Minutes to complete discharge: 30 Discharge Summary Reason For Visit: PERFORATED BOWEL,ACUTE ABDOMEN Current Active Problems Abdominal pain (Acute) Acute abdomen (Acute) Intra-abdominal free air of unknown etiology (Acute) Perforated bowel (Acute) SIRS (systemic inflammatory response syndrome) (Acute) Thrombocythemia (Acute) Anemia (Chronic) Constipation (Chronic) Depression (Chronic) Hypertension (Chronic) Condition: Improved - Instructions Diet, Activity, Other Instructions: please eat a soft diet and advance it as tolerated if you develop fevers or chills or drainage from your wound go to the nearest emergency room please follow up with Dr. Moscoso your hemotologist and tell him you had thrombocytosis which i elevated platelets and they were likely reactive to surgery and we sent off special labs called LUCIAN mutation BCR-ABL and flow cytometry this in 3 days you will need you blood work done to see if you need a blood transfusion you can do this at your primary care doctor's office or here at the hospital i will give you a prescription take the pain medications as needed follow up with Dr. Robin your surgeon follow up with Dr. Baker your primary care doctor you will take antibiotics for 2 more days (4 pills) call to make all these appointments take all medications as prescribed take the iron twice a day and after 2-3 weeks take it 3 times a day follow up with your primary care doctor for refills Referrals: Malick Robin MD [Staff Physician] - 1 Week Berny Bella MD [Primary Care Provider] - 1 Week Lenny Moscoso MD [Staff Physician] - 1 Week Disposition: HOME - Home Medications Comprehensive Discharge Medication List: Ambulatory Orders Amox-Tr/K Cl [Augmentin 875-125mg Tablet -] 1 tab PO BID #4 tablet 01/29/17 Ferrous Sulfate [Feosol] 325 mg PO BID #60 01/29/17 Oxycodone HCl/Acetaminophen [Percocet 5-325 mg Tablet] 1 tab PO Q6H PRN #10 tablet MDD 4 tabs 01/29/17 Pantoprazole Sodium [Protonix -] 40 mg PO DAILY #30 tablet.ec 01/29/17 This patient is new to me today: No Emergency Visit: No Critical Care patient: No - Discharge Referral Referred to [facility] Yes Physician Referral: Berny Baker MD ([facility]) (primary care doctor )
[2017-01-30 06:10] LABS: SERUM IRON 12 ug/dL (27-159); TOTAL IRON BINDING CAPACITY 259 ug/dL (250-450); UIBC 247 ug/dL (131-425)
[2017-01-30] MEDS ORDERED: AMOX TR/POT CLAV 875MG/125MG TABLETS (FP) PO SCH (08:00)
--- NOTE | 2017-01-31 16:01 | PATH ---
Surgical Pathology Report Patient Name: MITUL SMITH [facility]. Rec. #: [id number] /Age/Gender: 1985 (Age: 31) / F Account: [id number] Location: [address] [place] [address] Taken: 01/29/2017 Received: 01/29/2017 Reported: 01/31/2017 Physicians: Janna Avery M.D. Specimen(s) Received PERIPHERAL BLOOD Clinical History Thrombocytosis Final Diagnosis FLOW CYTOMETRY PERFORMED AND INTERPRETED AT [place], [place] ([id number]) SHOWED THE FOLLOWING: INTERPRETATION: There is no evidence of B or T-cell proliferative disorders or increased blasts. Mild polytypic plasmacytosis. Phenotype: In the sample analyzed, there is a mixed population of granulocytes, monocytes and lymphoid cells. CD34+ myeloblasts are 0.1%. Granulocytes are < 0.71% of total cells. Monocytes are 5% of total cells. There is no overt abnormal myeloid antigen expression. The B-cells (4% of total) appear polytypic with kappa excess. The T-cells (14% of total) show no mckenzie T-cell antigenic deletion. The plasma cells (1% of total) appear polytypic. Cytomorphology: smears from flow sample show no increase in myeloblasts or atypical lymphocytes. JAK2 V617F MUTATION ANALYSIS BY PCR PERFORMED AND INTERPRETED AT [place], [place] ([id number]) SHOWED THE FOLLOWING: RESULTS: ONLY THE WILD-TYPE JAK2 SEQUENCE WAS DETECTED. INTERPRETATION: NEGATIVE FOR JAK2 V617F MUTATION. Electronically Signed Rayray Shay M.D. Addendum Reported: 02/05/2017 Addendum Diagnosis BCR-ABL GENE REARRANGEMENT-QUANTITATIVE REAL TIME PCR ANALYSIS (IS) PERFORMED AND INTERPRETED AT [place], [place] ([id number]) SHOWED THE FOLLOWING: RESULTS: NEGATIVE BCR/ABL MAJOR BREAKPOINTS (b2a2 AND b3a2): NOT DETECTED. BCR/ABL MINOR BREAKPOINT (e1a2): NOT DETECTED. INTERPRETATION: NO BCR-ABL TRANSLOCATION WAS DETECTED IN THIS SAMPLE. Rayray Shay M.D. Addendum Reported: 02/06/2017 Addendum Diagnosis CALRETICULIN (CALR) PERFORMED AND INTERPRETED AT [place], [place] ([id number]) SHOWED THE FOLLOWING: RESULTS: No mutation was detected in exon 9 of the calreticulin gene (CALR) by PCR fragment analysis. INTERPRETATION: CALR MUTATION (exon 9): Not Detected. Comment: Among the JAK2 V617F negative MPNs, CALR mutations are detected in 67% of those with ET and 88% of those with PMF and are much less commonly seen in other hematopoietic neoplasms. CALR mutations are mutually exclusive with JAK2 or MPL mutations. CALR mutation testing also has prognostic value since CALR mutations are associated with longer survival and fewer thrombotic events as compared to JAK2 mutations. MPL MUTATION ANALYSIS PERFORMED AND INTERPRETED AT [facility] [place] ([id number]) SHOWED THE FOLLOWING: RESULTS: MPL Mutation: NOT DETECTED. INTERPRETATION: Negative for MPL gene mutations. Rayray Shay M.D. Gross Description Received are 2 green top tubes and 2 purple top tubes of blood which are sent to [facility]. 01/29/201701/29/2017
== END 2017-01-29 19:04 | disposition home or self-care (01) | DRG 220 ==
LOC: JER 05:13 → JERBED 10:15 → J6S 17:23
PROVIDERS: ADMIT Internal Medicine; ATTEND Internal Medicine
PROC: 0DU907Z Supplement Duodenum with Autologous Tissue Substitute, Open Approach (ICD-10-PCS; 2017-01-23)
PROC: 30233N1 Transfusion of Nonautologous Red Blood Cells into Peripheral Vein, Percutaneous Approach (ICD-10-PCS; 2017-01-23)
PROC: 0DQ60ZZ Repair Stomach, Open Approach (ICD-10-PCS; principal; 2017-01-23 13:00)
DX: K25.9 Gastric ulcer, unspecified as acute or chronic, without hemorrhage or perforation (principal); K63.1 Perforation of intestine (nontraumatic); F41.8 Other specified anxiety disorders; G43.809 Other migraine, not intractable, without status migrainosus; I10 Essential (primary) hypertension; N83.292 Other ovarian cyst, left side; N83.291 Other ovarian cyst, right side; R65.10 Systemic inflammatory response syndrome (SIRS) of non-infectious origin without acute organ dysfunction; D50.8 Other iron deficiency anemias; R00.0 Tachycardia, unspecified; D47.3 Essential (hemorrhagic) thrombocythemia
CPT/HCPCS: 36415; 71010-TC; 74177-TC; 80048; 80053; 81003; 81015; 82728; 83540; 83550; 83605; 83690; 83735; 84100; 84703; 85025; 85027; 85610; 86870; 86880; 86902; 86922; 87040; 87070; 87075; 87086; 87205; 88300-TC; 93005; 93010; 94010; 94760; 99285-25; J1644; P9038; P9058

== ENCOUNTER 2017-05-13 15:58 | Inpatient (IN) | payer OTHER ==
--- NOTE | 2017-05-13 16:26 | PDOC ---
History of Present Illness - General Chief Complaint: Edema Stated Complaint: PAIN Time Seen by Provider: 05/13/17 16:17 History Source: Patient - History of Present Illness Timing/Duration: other Severity: severe Associated Symptoms: reports: nausea/vomiting, shortness of breath, weakness. denies: chest pain, cough, fever/chills, syncope Past History - Past Medical History Allergies/Adverse Reactions: Allergies Allergy/AdvReac Type Severity Reaction Status Date / Time No Known Drug Allergies Allergy Verified 05/13/17 16:05 Home Medications: Ambulatory Orders Amox-Tr/K Cl [Augmentin 875-125mg Tablet -] 1 tab PO BID #4 tablet 01/29/17 Ferrous Sulfate [Feosol] 325 mg PO BID #60 01/29/17 Miscellaneous Drug Not In Syst [Outpatient Lab Test] 1 each ASDIR #1 misc Oxycodone HCl/Acetaminophen [Percocet 5-325 mg Tablet] 1 tab PO Q8H #10 tablet MDD 3 tab 01/29/17 Pantoprazole Sodium [Protonix -] 40 mg PO DAILY #30 tablet.ec 01/29/17 Anemia: Yes (BLOOD TRANSFUSIONS) Asthma: No Cancer: No Cardiac Disorders: No CVA: No COPD: No CHF: No Dementia: No Diabetes: No GI Disorders: Yes (ABDOMINAL BLOATING/PAIN/WT LOSS SINCE BLDING ULCER) Disorders: No HTN: Yes (BORDERLINE BP AFTER CHILDBIRTH /NO MEDS) Hypercholesterolemia: No Liver Disease: No Psychiatric Problems: Yes (DEPRESSION) Seizures: No Thyroid Disease: No - Surgical History Abdominal Surgery: Yes Appendectomy: No Cardiac Surgery: No Cholecystectomy: No Lung Surgery: No Neurologic Surgery: No Orthopedic Surgery: No - Family Disease History Family Disease History: Heart Disease: Grandparents - Reproductive History Cervical CA: No Dysfunctional Uterine Bleeding: No Ectopic : No Endometrial CA: No Polycystic Ovaries: No Tubal Ligation: No - Psycho/Social/Smoking Cessation Hx Anxiety: No Suicidal Ideation: No Smoking History: Current every day smoker Have you smoked in the past 12 months: Yes Number of Cigarettes Smoked Daily: 10 Information on smoking cessation initiated: No Hx Alcohol Use: No Drug/Substance Use Hx: No Substance Use Type: None Hx Substance Use Treatment: No Review of Systems - Review of Systems Constitutional: Yes: Malaise, Weakness, Unintentional Wgt. Loss. No: Chills, Fever Respiratory: Yes: Shortness of Breath Cardiac (ROS): Yes: Palpitations. No: Chest Pain ABD/GI: Yes: Nausea, Vomiting, Abdominal cramping. No: Diarrhea : No: Dysuria, Flank Pain, Hematuria *Physical Exam - Vital Signs Last Vital Signs Temp Pulse Resp BP Pulse Ox 98.2 F 88 18 108/61 96 05/13/17 15:59 05/13/17 15:59 05/13/17 15:59 05/13/17 15:59 05/13/17 15:59 - Physical Exam Comments: 05/13/17 17:36 chronically ill appearing, pale young woman General Appearance: Yes: Appropriately Dressed HEENT: positive: Normal Voice Neck: positive: Supple Respiratory/Chest: positive: Lungs Clear, Normal Breath Sounds. negative: Respiratory Distress Cardiovascular: positive: Regular Rate, S1, S2 Gastrointestinal/Abdominal: positive: Normal Bowel Sounds, Soft. negative: Tender, Distended, Guarding, Rebound Musculoskeletal: negative: CVA Tenderness Extremity: positive: Pedal Edema (b/l LE) Integumentary: positive: Dry, Warm Neurologic: positive: Fully Oriented, Alert, Abnormal Cranial NS Procedures - Central Line Central Line Lumen: triple Central Line Position: internal jugular (R) Anesthesia: 1% Lidocaine Amount of anesthesia (ccs): 7 Complications: none Post Central Line Insertion: sutured, good blood return, position confirmed w/ CXR Progress: 05/13/17 19:08 Performed by resident Deborah Suarez w/ ED attg and myself at bedside ED Treatment Course - LABORATORY CBC & Chemistry Diagram: 05/14/17 15:00 05/14/17 08:25 Medical Decision Making - Medical Decision Making 05/13/17 16:26 31-year-old female, history of depression, constipation, anemia of unclear etiology, no heme w/u in the past per pt, status post transfusion 1, status post surgery for perforated pyloric channel ulcer 3 months ago at [facility], now presents with multiple complaints including bilateral lower extremity edema that patient states has been present since her surgery. States she saw Dr. Robin of surgery for follow-up visit last week and was told to come to ED but refused to come in that day. Patient also complaining of chronic fatigue and dry mouth. States for the past week she has had vague shortness of breath and palpitations, and also reports some abdominal cramping and nausea/vomiting intermittently. Is having normal BM and passing gas. No BRBPR, melena, constipation or diarrhea. No fever or chills. See exam Weakness w/ sob and palpitations of unclear duration S/p surg for perf viscous 3 months ago H/o anemia s/p transfusion for hgb of 2 in 2016 Stable in ED but appears chronically ill and pale w/ dry MM and benign abd -labs -IVF -?CT a/p given abd cramping LE edema Since surgery 3 months ago 3+edemato b/l LE on exam Stable in ED Doubt DVT given chronicity but will r/o w/ US -labs pending 05/13/17 18:01 Profound anemia on labs w/ hgb 2.1! Of note, stool guaiac neg. Pt remains stable in ED. Will order 2 unit of blood and reassess. K 2.1, will replete w/ IV and po KCL. Will place central line at this time. Pt already d/w ICU attg and accepted to unit 05/13/17 19:10 05/13/17 19:19 Case d/w hospitalist, pt to get abd imaging but too unstable currently to go over to radiology at this time. Portable chest in progress which will confirm central line placement and r/o free air. Pt admitted to unit. 05/14/17 16:01 *DC/Admit/Observation/Transfer Diagnosis at time of Disposition: Hypokalemia Anemia Qualifiers: Anemia type: unspecified type Qualified Code(s): D64.9 - Anemia, unspecified - Discharge Dispostion Condition at time of disposition: Guarded Admit: Yes - Referrals
[2017-05-13 17:27] LABS: BASOPHIL 0.4 % (0-2.0); EOSINOPHIL 0.5 % (0-4.5); MCH 24.7 pg (25.7-33.7); MCHC 30.1 g/dl (32.0-36.0); MEAN PLT VOLUME 8.9 fl (7.5-11.1); NEUTROPHILS 76.6 % (42.8-82.8); PLATELET COUNT 305 K/MM3 (134-434); RDW 30.4 % (11.6-15.6); WHITE BLOOD COUNT 7.7 K/mm3 (4.0-10.0)
[2017-05-13] MEDS ORDERED: SODIUM CHLORIDE 1,000 ML IV STA ×2 (17:37→18:56)
[2017-05-13 17:41] LABS: INR 1.95 (0.82-1.09); PROTHROMBIN TIME (PATIENT) 21.7 SEC (9.98-11.88)
[2017-05-13 17:53] LABS: ALBUMIN 2.7 g/dl (3.4-5.0); ANION GAP 11 (8-16); BILIRUBIN,TOTAL 0.3 mg/dL (0.2-1.0); CALCIUM 7.7 mg/dL (8.5-10.1); CO2 40 mmol/L (21-32); CREATININE 0.7 mg/dL (0.55-1.02); GLUCOSE,RANDOM 87 mg/dL (74-106); SGOT/AST 42 U/L (15-37); SGPT/ALT 20 U/L (12-78); TOT PROT 6.7 g/dl (6.4-8.2)
[2017-05-13 17:56] LABS: ALK PHOS 162 U/L (45-117); TROPONIN I < 0.02 ng/ml (0.00-0.05)
[2017-05-13] MEDS ORDERED: POTASSIUM CHLORIDE ORAL LIQUID 20 MEQ/15 ML PO ONE ×2 (17:58→19:02)
[2017-05-13 19:00] LABS: ANISOCYTOSIS 3+; PLATELET ESTIMATE ADEQUATE (NORMAL); POIKILOCYTOSIS 1+; POLYCHROMASIA 1+
[2017-05-13 19:01] LABS: MICROCYTOSIS 1+
[2017-05-13 19:02] LABS: SPHEROCYTE FEW
[2017-05-13 19:03] LABS: TARGET CELLS RARE
[2017-05-13] MEDS ORDERED: POTASSIUM CHLORIDE TABS 20 MEQ TABLET.ER (FP) PO ONE (19:04)
[2017-05-13] MEDS: KCL 10 MEQ IVPB 100 ML IVPB SCH ×3 (19:15→22:30)
[2017-05-13] MEDS ORDERED: KCL 10 MEQ IVPB 100 ML IVPB ONE ×2 (19:16→20:05)
[2017-05-13 20:06] LABS: HIV 1 & 2 AB NEGATIVE; HIV 1 AGp24 NEGATIVE
--- NOTE | 2017-05-13 20:23 | PN ---
<Raymond Valenzuela - Last Filed: 05/14/17 00:30> Teaching Attending Note IMAGING: EXAM DATE AND TIME: 2017-05-13 20:31:36.0 COMPARISON: None. FINDINGS- Limited exam due to lack of IV contrast. CHEST: Right IJ catheter tip in SVC. Low- density blood pool concerning for severe anemia. Heart size normal. No pericardial effusion. Left lower lobe opacity and volume loss, suspect rounded atelectasis, superimposed infiltrate not excluded. 3 mm nonspecific right upper lung nodule. ABDOMEN/PELVIS: Vertical scar upper abdomen. Endovascular coils in area of stomach. Fatty liver. Branching lucencies in central liver, probable biliary air. Air in gallbladder lumen. Spleen unremarkable. Adrenals probably assess without contrast. Negative for hydronephrosis. Urinary bladder unremarkable. Uterus present. Mesenteric edema. Small abdominal free fluid ( inferior liver margin, right paracolic gutter) and moderate pelvic free fluid ( largest pocket 2.9 x 6.1 x 5.4 cm). Fluid is low attenuation (~15 hu) but this is similar attenuation to the aorta, and this fluid could represent blood or ascites. GI tract poorly assessed without contrast. Nonobstructive bowel gas pattern. Normal appendix. Body wall edema consistent with anasarca. No free air noted, but again, somewhat limited without contrast. OSSEOUS: No acute bony abnormality IMPRESSION: . Low-density in blood pool consistent with severe anemia. Small right abdomen and moderate pelvic free fluid, which could be blood or ascites. . Pneumobilia. . Anasarca. . Left lower lobe opacity and volume loss, suspect rounded atelectasis, superimposed infiltrate not excluded. . Interventional radiology consultation advised, given severe anemia and prior vascular coiling. CTA abdomen and pelvis should also be considered. . Discussed by telephone with Nurse Practitioner Princess Anguiano at 10:39 PM on 05/08/17, who verbalizes understanding. THIS DOCUMENT HAS BEEN ELECTRONICALLY SIGNED Stuart Padgett D.O. 05/13/2017 23:06 EST Documentation prepared by Raymond Valenzuela, acting as biomedical engineer for James Murphy MD. <James Murphy - Last Filed: 05/14/17 05:26> Teaching Attending Note Name of Resident: Suhail Santizo ATTENDING PHYSICIAN STATEMENT I saw and evaluated the patient. I reviewed the resident's note and discussed the case with the resident. I agree with the resident's findings and plan as documented. SUBJECTIVE: 31 F with pmhx of iron def anemia, HTN, hemmoragic ovarian cysts, with recent Admission in January 2017 for perforated abdominal ulcer with garcia patch placement. Pt. states for past week she has had increasing abdominal girth and diffuse abdominal tenderness. She had followed up with her surgeon who had advised her to come to ED. Pt. did not come at that time. Notes associated lightheadedness, dizziness, and weakness. No chest pain or pressure. No black or bloody stool. States she has had "green diarrhea" past few days. Unknown amount. Notes she is currently NOT on her period, but she last menstruated 2 weeks ago, with using about 2 pads/hr. States she has had her menstrual period 2X this month. She has not followed up with pharmacy informatics manager/heme. OBJECTIVE: Physical: Vital Signs Period Temp Pulse Resp BP Sys/Suárez Pulse Ox Last 24 Hr 98.2 F 88 18 108/61 88-96 GEN: Shimon female in bed, able to speak full sentences, in no apparent duress HEENT: Pale sclera bilateral, Pupils round and reactive to light CARD: RRR S1, S2 RESP: Decreased breath sounds both bases bilaterally ABD: Midline abdominal surgical scar, distended with bowel sounds present. diffuse abdominal tenderness on palpation\\ EXT: +2 Pitting edema, bilateral and equal CBCD WBC 7.7 K/mm3 (4.0-10.0) 05/13/17 17:15 RBC 0.87 M/mm3 (3.60-5.2) L D 05/13/17 17:15 Hgb 2.1 GM/dL (10.7-15.3) L* D 05/13/17 17:15 Hct 7.1 % (32.4-45.2) L 05/13/17 17:15 MCV 82.0 fl (80-96) 05/13/17 17:15 MCHC 30.1 g/dl (32.0-36.0) L 05/13/17 17:15 RDW 30.4 % (11.6-15.6) H 05/13/17 17:15 Plt Count 305 K/MM3 (134-434) D 05/13/17 17:15 MPV 8.9 fl (7.5-11.1) D 05/13/17 17:15 CMP Sodium 139 mmol/L (136-145) 05/13/17 17:15 Potassium 2.1 mmol/L (3.5-5.1) L* D 05/13/17 17:15 Chloride 88 mmol/L (98-107) L D 05/13/17 17:15 Carbon Dioxide 40 mmol/L (21-32) H D 05/13/17 17:15 Anion Gap 11 (8-16) 05/13/17 17:15 BUN 8 mg/dL (7-18) D 05/13/17 17:15 Creatinine 0.7 mg/dL (0.55-1.02) D 05/13/17 17:15 Creat Clearance w eGFR > 60 (>60) 05/13/17 17:15 Random Glucose 87 mg/dL (74-106) 05/13/17 17:15 Calcium 7.7 mg/dL (8.5-10.1) L 05/13/17 17:15 Total Bilirubin 0.3 mg/dL (0.2-1.0) D 05/13/17 17:15 AST 42 U/L (15-37) H D 05/13/17 17:15 ALT 20 U/L (12-78) D 05/13/17 17:15 Alkaline Phosphatase 162 U/L (45-117) H D 05/13/17 17:15 Total Protein 6.7 g/dl (6.4-8.2) 05/13/17 17:15 Albumin 2.7 g/dl (3.4-5.0) L D 05/13/17 17:15 CARDIAC ENZYMES Creatine Kinase 264 IU/L (26-192) H D 05/13/17 17:15 Troponin I < 0.02 ng/ml (0.00-0.05) 05/13/17 17:15 EKG NSR QT ASSESSMENT AND PLAN: 31 F with pmhx of iron def anemia, HTN, hemmoragic ovarian cysts, with recent Admission in January 2017 for perforated abdominal ulcer with garcia patch placement who presents with abdominal pain, nausea and vomiting found to have severe anemia. 1.) Anemia Normocytic - acute on chronic - STAT CBC keep Hgb>7 - FFP for inc. INR - Stool Guaic Negative - Tansvaginal US - STAT CT ABD/PELVIS - Iron studies post transfusion - Repeat CBC q 12 - Repeat Coags in am - Heme consult - CHk B12/Folate - Protonix 2.) Abdominal Distension/Hx of Perforated Gastric Ulcer - Stat CT - Sx. consult post CT - NPO 3.) Hx. Of Hemmoragic Ovarian Cysts - Transvaginal US 4.) HTN - Controlled - Hold ALL anti- HTN meds 5.) Lower Extremity Edema - Stat Duplex - Echo 6.) QT Prolongation - CHk. Mg 2+ - Tele - Avoid QT prolonging agents 7.) Hypokalemia - Replete 8.) DVT Ppx - Low Risk - No A/C due to Severe Anemia ADDENDUM - CT with Pelvic Free Fluid- - ? Hemmoragic Cyst/ Art bleed (less likely as pt. is hemodynamically stable) - Stat CTA, IR consult, Transvaginal US, Mutuel Machine Operator consult Accepted to ICU - CC time 60 minutes
--- NOTE | 2017-05-13 21:36 | HP ---
CHIEF COMPLAINT: weakness, nausea, abd pain PCP: HISTORY OF PRESENT ILLNESS: 31 y/o F w/PMH of anemia (iron deficiency), hemorrhagic ovarian cysts, s/p surgery for perforated gastric ulcer 01/2017 presents to ER with worsening abdominal pain, nausea, and distention over the last 1-2 weeks. Pt followed up with Dr. Robin approximately 1-2 weeks ago and at that time she was advised to come to ER for anemia but pt did not come to ER. Since her surgery pt states she has been having abd pain and over the last 1-2 weeks she has been having nausea with occasional non-bloody vomiting, decreased appetite, light-headedness , dizziness, weakness, chest pain with exertion, sob with exertion. She also c/ o diarrhea that is green in color over the last 3-4 days but denies any dark stool or blood in stool. She states she had her regular menses within the last 2 weeks that lasted for 2 days as it usually does with regular amount of menstruation. She also notes she has had her mentrual period twice a month lately. She denies fevers, chills, sick contacts, dysuria, pain with urination, blood in urine, loss of consciousness. She states her leg swelling is chronic. Recent Travel: denies PAST MEDICAL HISTORY:anemia (iron deficiency), hemorrhagic ovarian cysts, perforated gastric ulcer PAST SURGICAL HISTORY:surgery for perforated abd ulcer 01/2017 Social History: Smokin cigarettes per day Alcohol: denies Drugs: denies Family History: Mother: HTN Allergies No Known Drug Allergies Allergy (Verified 05/13/17 16:05) HOME MEDICATIONS: Home Medications Medication Instructions Recorded Amox-Tr/K Cl [Augmentin 875-125mg 1 tab PO BID #4 tablet 01/29/17 Tablet -] Ferrous Sulfate [Feosol] 325 mg PO BID #60 01/29/17 Miscellaneous Drug Not In Syst 1 each ASDIR #1 misc 01/29/17 [Outpatient Lab Test] Oxycodone HCl/Acetaminophen 1 tab PO Q8H #10 tablet MDD 3 tab 01/29/17 [Percocet 5-325 mg Tablet] Pantoprazole Sodium [Protonix -] 40 mg PO DAILY #30 tablet.ec 01/29/17 REVIEW OF SYSTEMS CONSTITUTIONAL: +generalized weakness, loss of appetite Absent: fever, chills, diaphoresis CARDIOVASCULAR: +chest pain w/exertion, light-headedness. peripheral edema RESPIRATORY: +dyspnea w/exertion Absent: cough, wheezing GASTROINTESTINAL: +abd pain, abd distension, nausea, vomiting, diarrhea Absent: melena, hematochezia GENITOURINARY: Absent: dysuria, frequency, hematuria MUSCULOSKELETAL: +generalized weakness SKIN: +pallor NEUROLOGIC: +dizziness Absent: headache, focal weakness, dizziness, seizure Vital Signs Temperature 98.2 F 05/13/17 15:59 Pulse Rate 88 05/13/17 15:59 Respiratory Rate 18 05/13/17 15:59 Blood Pressure 108/61 05/13/17 15:59 O2 Sat by Pulse Oximetry (%) 88 L 05/13/17 16:30 PHYSICAL EXAMINATION GENERAL: Awake, alert, and fully oriented, in no acute distress HEAD: Normal with no signs of trauma. EYES: extraocular movements intact, sclera anicteric, pale sclera, EARS, NOSE, THROAT: Ears normal, nares patent, DRY mucous membranes. NECK: Normal range of motion, supple LUNGS: Breath sounds equal, clear to auscultation bilaterally. No wheezes, and no crackles. No accessory muscle use. HEART: Regular rate and rhythm, normal S1 and S2 without murmur, rub or gallop. ABDOMEN: surgical scar midline, well healed, no drainage. +distension +diffuse tenderness (Worse in RUQ and LUQ and RLQ), normoactive bowel sounds. LOWER EXTREMITIES:warm, well-perfused. No calf tenderness. 2+ pitting edema. NEUROLOGICAL: Normal speech. Gait not observed. PSYCHIATRIC: Cooperative. Good eye contact. Appropriate mood and affect. SKIN: Warm, dry CBCD WBC 7.7 K/mm3 (4.0-10.0) 05/13/17 17:15 RBC 0.87 M/mm3 (3.60-5.2) L D 05/13/17 17:15 Hgb 2.1 GM/dL (10.7-15.3) L* D 05/13/17 17:15 Hct 7.1 % (32.4-45.2) L 05/13/17 17:15 MCV 82.0 fl (80-96) 05/13/17 17:15 MCHC 30.1 g/dl (32.0-36.0) L 05/13/17 17:15 RDW 30.4 % (11.6-15.6) H 05/13/17 17:15 Plt Count 305 K/MM3 (134-434) D 05/13/17 17:15 MPV 8.9 fl (7.5-11.1) D 05/13/17 17:15 CMP Sodium 139 mmol/L (136-145) 05/13/17 17:15 Potassium 2.1 mmol/L (3.5-5.1) L* D 05/13/17 17:15 Chloride 88 mmol/L (98-107) L D 05/13/17 17:15 Carbon Dioxide 40 mmol/L (21-32) H D 05/13/17 17:15 Anion Gap 11 (8-16) 05/13/17 17:15 BUN 8 mg/dL (7-18) D 05/13/17 17:15 Creatinine 0.7 mg/dL (0.55-1.02) D 05/13/17 17:15 Creat Clearance w eGFR > 60 (>60) 05/13/17 17:15 Random Glucose 87 mg/dL (74-106) 05/13/17 17:15 Calcium 7.7 mg/dL (8.5-10.1) L 05/13/17 17:15 Total Bilirubin 0.3 mg/dL (0.2-1.0) D 05/13/17 17:15 AST 42 U/L (15-37) H D 05/13/17 17:15 ALT 20 U/L (12-78) D 05/13/17 17:15 Alkaline Phosphatase 162 U/L (45-117) H D 05/13/17 17:15 Total Protein 6.7 g/dl (6.4-8.2) 05/13/17 17:15 Albumin 2.7 g/dl (3.4-5.0) L D 05/13/17 17:15 CARDIAC ENZYMES Creatine Kinase 264 IU/L (26-192) H D 05/13/17 17:15 Troponin I < 0.02 ng/ml (0.00-0.05) 05/13/17 17:15 Laboratory Tests 05/13/17 05/13/17 05/13/17 17:15 17:15 17:15 INR D-Dimer Lactic Acid 6.8 H* Lipase 98 Serum , Qual Negative Stool Occult Blood Hep Bs Antigen Hep Bs Ab Concentration Hep B Core Ab Interpret Hepatitis C Antibody HIV 1&2 Antibody Screen HIV P24 Antigen 05/13/17 05/13/17 05/13/17 17:15 17:32 18:16 INR 1.95 H D D-Dimer 661 H Lactic Acid Lipase Serum , Qual Stool Occult Blood Negative Hep Bs Antigen Hep Bs Ab Concentration Hep B Core Ab Interpret Hepatitis C Antibody HIV 1&2 Antibody Screen HIV P24 Antigen 05/13/17 05/13/17 19:00 19:00 INR D-Dimer Lactic Acid Lipase Serum , Qual Stool Occult Blood Hep Bs Antigen Pending Hep Bs Ab Concentration Pending Hep B Core Ab Interpret Pending Hepatitis C Antibody Pending HIV 1&2 Antibody Screen Negative HIV P24 Antigen Negative Imaging: Patient Name: Brenda Ya THIS IS A PRELIMINARY REPORT FROM [facility] EXAM: CT chest noncontrast and CT abdomen & pelvis noncontrast HISTORY: History of perforated abdomen (perforated ulcer), low H&H. Hb of 2 (two). IMAGES: 529 EXAM DATE AND TIME: 2017-05-13 20:31:36.0 COMPARISON: None. FINDINGS- Limited exam due to lack of IV contrast. CHEST: Right IJ catheter tip in SVC. Low- density blood pool concerning for severe anemia. Heart size normal. No pericardial effusion. Left lower lobe opacity and volume loss, suspect rounded atelectasis, superimposed infiltrate not excluded. 3 mm nonspecific right upper lung nodule. ABDOMEN/PELVIS: Vertical scar upper abdomen. Endovascular coils in area of stomach. Fatty liver. Branching lucencies in central liver, probable biliary air. Air in gallbladder lumen. Spleen unremarkable. Adrenals probably assess without contrast. Negative for hydronephrosis. Urinary bladder unremarkable. Uterus present. Mesenteric edema. Small abdominal free fluid ( inferior liver margin, right paracolic gutter) and moderate pelvic free fluid ( largest pocket 2.9 x 6.1 x 5.4 cm). Fluid is low attenuation (~15 hu) but this is similar attenuation to the aorta, and this fluid could represent blood or ascites. GI tract poorly assessed without contrast. Nonobstructive bowel gas pattern. Normal appendix. Body wall edema consistent with anasarca. No free air noted, but again, somewhat limited without contrast. OSSEOUS: No acute bony abnormality IMPRESSION: . Low-density in blood pool consistent with severe anemia. Small right abdomen and moderate pelvic free fluid, which could be blood or ascites. . Pneumobilia. . Anasarca. . Left lower lobe opacity and volume loss, suspect rounded atelectasis, superimposed infiltrate not excluded. . Interventional radiology consultation advised, given severe anemia and prior vascular coiling. CTA abdomen and pelvis should also be considered. . Discussed by telephone with Nurse Practitioner Princess Anguiano at 10:39 PM on 05/08/17, who verbalizes understanding. THIS DOCUMENT HAS BEEN ELECTRONICALLY SIGNED Stuart Padgett D.O. Active Medications Calcium Chloride (Calcium Chloride 10% -) 1 gm IVPB ONCE ONE Stop: 05/14/17 00:34 Chlorhexidine Gluconate (Hibiclens For Decolonization -) 1 applic TP HS [facility] Last Admin: 05/13/17 23:09 Dose: 1 applic Pantoprazole Sodium (Protonix 40mg Ivpb (Pre-Docked)) 100 mls @ 200 mls/hr IVPB DAILY [facility] Last Admin: 05/13/17 23:08 Dose: 200 mls/hr Mupirocin (Bactroban Ointment (For Decolonization) -) 1 applic NS BID [facility] Stop: 05/18/17 21:59 Last Admin: 05/13/17 23:08 Dose: 1 applic ASSESSMENT/PLAN: 31 y/o F w/PMH of anemia (iron deficiency), hemorrhagic ovarian cysts, s/p surgery for perforated gastric ulcer 01/2017 presents to ER with worsening abdominal pain, nausea, and distention over the last 1-2 weeks. Admitted for symptomatic severe anemia w/Hgb of 2.1, lactic acidosis of 6.8, and abdominal pain. -Severe symptomatic anemia, normocytic -Hgb 2.1, goal hgb >7; FOBT neg -PRBCs to keep Hgb > 7 -FFP for elevated INR -w/ hx of hemorrhagic ovarian cysts - transvaginal U/S ordered -w/ hx of perforated gastric ulcer s/p surgery and diffuse abd pain -CT abd pelv shows small right abd and mod pelvic free fluid which could be blood or ascites -CTA abd/pelvis stat ordered -IR consulted -Hematology consulted -f/u CBC q12h, coags, b12, folate -check iron studies after transfusions -Chest pain and dyspnea w/exertion likely secondary to anemia -trops neg x2 -f/u echo -Abdominal pain w/ abd distension -pt w/hx of perforated gastric ulcer s/p surgery 01/2017 -CT abd pelv shows small right abd and mod pelvic free fluid which could be blood or ascites -CTA abd/pelvis stat ordered -IR Consulted -Protonix IV 40 mg qd ordered -NPO -Surgery consulted -Exertional Chest pain; likely due to anemia -initial trop neg, trend trops -Echo ordered -LE edema -may be due to output failure from anemia -Duplex U/S ordered -f/u echo -DVT ppx -SCDs -FEN -receiving blood transfusions, ffp -monitor electrolytes -NPO -Dispo: -Admit to ICU Visit type - Emergency Visit Emergency Visit: Yes ED Registration Date: 05/13/17 Care time: The patient presented to the Emergency Department on the above date and was hospitalized for further evaluation of their emergent condition. - New Patient This patient is new to me today: Yes Date on this admission: 05/14/17 - Critical Care Critical Care patient: Yes Total Critical Care Time (in minutes): 45 Critical Care Statement: The care of this patient involved high complexity decision making to prevent further life threatening deterioration of the patient 's condition and/or to evalute & treat vital organ system(s) failure or risk of failure.
[2017-05-13] MEDS ORDERED: HYDROmorphone HCL CARPU-JECT 1 MG/1 ML DISP.SYRIN IVPB ONE (21:41)
[2017-05-13] MEDS ORDERED: SODIUM CHLORIDE 0.9% 1000 ML INFUS.BAG IV ONE (21:45)
--- NOTE | 2017-05-13 22:49 | CONSULT ---
Consult - History of Present Illness Chief Complaint: abdominal pain History of Present Illness: This is a 31 year old woman (poor historian) with a pmhx of chronic anemia, perforated ulcer s/p garcia patch placement by Dr. Robin January 2017, ? hemmorhagic ovarian cysts, ?bleeding ulcer s/p endovascular coils who presented to the ED c/o worsening abdominal distention over the past 1-2 weeks, severe epigastric pain, increasing lethargy, and nausea and vomiting. Reports bowel movements are green without evidence of blood. Not black or red. Emesis has been clear. She reports following up with Dr. Robin last week who encouraged her to visit the ED, though she declined. Since then her symptoms have worsened prompting her visit tonight. In the ED VS: T98.2, HR 88, BP 108/61, spO2 96. Hgb 2.1, hct 7.1, K 2.1. Lactic aid 6.8. RIJ triple was placed in ED. CT chest, abdomen, and pelvis done. Official read significant for: small amount of abdominal free fluid and moderate pelvic free fluid. She was transferred to the ICU for further care and monitoring. She arrived to the ICU receiving her first unit of RBCs. Large bore access obtained and second unit ordered. 1 of FFP ordered. NGT placed. PPI started. CTA ordered. Repeat labs now pending. Given her young age, severity of anemia, surgical history, and history of bleeding and perforated ulcer I discussed her case with both Dr. Robin from surgery and Dr. Sanchez from GI. She remains hemodynamically stable which is inconsistent with an acute loss of blood seen with a bleeding ulcer or GDA bleed , though cannot yet rule out. Further, she has no overt signs of upper GI bleeding. No melena or BRBPR. NGT output is clear. She still has no clear source of bleeding, and to what degree this anemia is chronic is unclear. And although she complains of epigastric abdominal pain, she has no peritoneal signs. Her abdomen is not rigid, rather softly distended and largely non-tender to palpation. For now, we will resuscitate with blood products, IVF, and closely monitor her hemoglobin. We will do a CTA and discuss with IR in the morning. She is ordered for a transvaginal ultrasound. - History Source History Provided By: Patient Limitations to Obtaining History: Poor Historian - Past Medical History Cardio/Vascular: Yes: HTN ...LMP: 01/04/17 Psych: Yes: Depression Additional Medical History: Anemia. Depression not on meds - Past Surgical History Past Surgical History: Yes: None - Alcohol/Substance Use Hx Alcohol Use: No History of Substance Use: reports: None - Smoking History Smoking history: Current every day smoker Have you smoked in the past 12 months: Yes Aproximately how many cigarettes per day: 10 - Social History ADL: Independent History of Recent Travel: No Home Medications - Allergies Allergies/Adverse Reactions: Allergies Allergy/AdvReac Type Severity Reaction Status Date / Time No Known Drug Allergies Allergy Verified 05/13/17 16:05 - Home Medications Home Medications: Ambulatory Orders Amox-Tr/K Cl [Augmentin 875-125mg Tablet -] 1 tab PO BID #4 tablet 01/29/17 Ferrous Sulfate [Feosol] 325 mg PO BID #60 01/29/17 Miscellaneous Drug Not In Syst [Outpatient Lab Test] 1 each ASDIR #1 misc Oxycodone HCl/Acetaminophen [Percocet 5-325 mg Tablet] 1 tab PO Q8H #10 tablet MDD 3 tab 01/29/17 Pantoprazole Sodium [Protonix -] 40 mg PO DAILY #30 tablet.ec 01/29/17 Family Disease History - Family Disease History Family Disease History: Other: Mother (anemia) Review of Systems - Review of Systems Constitutional: reports: Lethargy, Loss of Appetite Cardiovascular: reports: Palpitations, Shortness of Breath Gastrointestinal: reports: Abdominal Pain, Bloating, Constipation, Diarrhea, Nausea, Vomiting. denies: Dysphagia, Indigestion, Melena, Vomiting Blood Genitourinary: reports: No Symptoms Breasts: reports: No Symptoms Reported Musculoskeletal: reports: Back Pain Integumentary: reports: No Symptoms Neurological: reports: Confusion Endocrine: reports: No Symptoms Hematology/Lymphatic: reports: No Symptoms Psychiatric: reports: No Symptoms Physical Exam Vital Signs: Vital Signs Temperature 98.2 F 05/13/17 15:59 Pulse Rate 88 05/13/17 15:59 Respiratory Rate 18 05/13/17 15:59 Blood Pressure 108/61 05/13/17 15:59 O2 Sat by Pulse Oximetry (%) 88 L 05/13/17 16:30 Constitutional: Yes: Ashen, Cachectic, Pallor Eyes: Yes: PERRL HENT: Yes: WNL Neck: Yes: WNL Cardiovascular: Yes: Regular Rate and Rhythm Respiratory: Yes: CTA Bilaterally Gastrointestinal: Yes: Distention, Tenderness, Tenderness, Epigastrium. No: Hypoactive Bowel Sounds, Melena, Palpable Mass ...Rectal Exam: Yes: Deferred Renal/: Yes: WNL Musculoskeletal: Yes: Back Pain, Muscle Weakness Extremities: Yes: Cool, Pallor Edema: LLE: Trace, RLE: Trace Neurological: Yes: Lethargy ...Motor Strength: WNL Psychiatric: Yes: WNL Imaging - Results Cat Scan: Report Reviewed (Free fluid in abdomen; small amount in liver on R side; appears to have endovascular coils) Assessment/Plan This is a 31 year old woman with a pmhx of chronic anemia and perforated ulcer s /p Garcia patch placement (January 2017) who presented to the ED c/o epigastric pain, progressive abdominal distention found to have severe anemia, coagulopathy , and hypokalemia. Presentation concerning for acute bleed given hgb of 2.1, unclear source ?ulcer, ?GDA, ?ovarian cyst; she does have chronic anemia. -Discuss with surgery -Discuss with GI -CTA -Get official CT read -Transvaginal ultrasound -Large bore access (needs #18g IV) -Place NGT -PPI infusion -NPO -Serial CBCs -2UPRBCs and FFP now -Replete potassium -Calcium -Low threshold for antibiotics, hold off for now -Would consult IR in AM
[2017-05-13] MEDS: PANTOPRAZOLE SODIUM 100 ML IVPB SCH (23:08)
[2017-05-13] MEDS: MUPIROCIN 2% TOPICAL OINTMENT FOR DECOLONIZATION NS SCH (23:08)
[2017-05-13] MEDS: CHLORHEXIDINE GLUCONATE 4% CLEANSER FOR DECOLONIZATION TP SCH (23:09)
[2017-05-14 00:28] LABS: MCH 24.6 pg (25.7-33.7); MCHC 32.2 g/dl (32.0-36.0); MEAN CELL VOLUME 76.5 fl (80-96); MEAN PLT VOLUME 9.1 fl (7.5-11.1); PLATELET COUNT 238 K/MM3 (134-434); RDW 22.5 % (11.6-15.6); WHITE BLOOD COUNT 6.9 K/mm3 (4.0-10.0)
[2017-05-14] MEDS ORDERED: CALCIUM CHLORIDE 1 GM/10 ML *DISP.SYRIN IVPB ONE (00:33)
[2017-05-14 00:34] LABS: URINE APPEARANCE CLEAR; URINE BILIRUBIN NEGATIVE (NEGATIVE); URINE BLOOD NEGATIVE (NEGATIVE); URINE COLOR LTYELLOW; URINE GLUCOSE (UA) NEGATIVE (NEGATIVE); URINE KETONE NEGATIVE (NEGATIVE); URINE NITRITE NEGATIVE (NEGATIVE); URINE PROTEIN NEGATIVE (NEGATIVE); URINE UROBILINOGEN NEGATIVE E.U./dl (0.2-1.0)
[2017-05-14 00:45] LABS: URINE LEUK ESTERASE TRACE (NEGATIVE)
[2017-05-14 00:48] LABS: INR 1.71 (0.82-1.09)
[2017-05-14 00:49] LABS: URINE BACTERIA RARE /hpf (NONE SEEN); URINE HYALINE CAST 3 /lpf; URINE MUCUS RARE; URINE RBC <1 /hpf (0-3); URINE WBC 3 /hpf (3-5)
[2017-05-14 00:55] LABS: ANION GAP 6 (8-16); CALCIUM 7.1 mg/dL (8.5-10.1); CO2 40 mmol/L (21-32); CREATININE 0.4 mg/dL (0.55-1.02); GLUCOSE,RANDOM 85 mg/dL (74-106); MAGNESIUM 2.3 mg/dL (1.8-2.4); PHOSPHOROUS 1.9 mg/dL (2.5-4.9)
[2017-05-14] MEDS ORDERED: CALCIUM GLUCONATE 10% - 1,000 MG/10 ML VIAL IVPB ONE (01:01)
[2017-05-14] MEDS: KCL 10 MEQ IVPB 100 ML IVPB SCH ×8 (02:23→17:25)
[2017-05-14 03:58] VITALS: BMI 21.3
[2017-05-14] MEDS ORDERED: POTASSIUM CHLORIDE ORAL LIQUID 20 MEQ/15 ML PO ONE (05:29)
[2017-05-14 06:39] LABS: BASOPHIL 0.3 % (0-2.0); EOSINOPHIL 1.2 % (0-4.5); MCH 26.3 pg (25.7-33.7); MCHC 33.1 g/dl (32.0-36.0); MEAN CELL VOLUME 79.4 fl (80-96); MEAN PLT VOLUME 9.2 fl (7.5-11.1); NEUTROPHILS 69.8 % (42.8-82.8); PLATELET COUNT 246 K/MM3 (134-434); RDW 24.4 % (11.6-15.6); WHITE BLOOD COUNT 6.8 K/mm3 (4.0-10.0)
[2017-05-14 06:40] LABS: BASOPHIL 0.5 % (0-2.0); MCH 27.1 pg (25.7-33.7); MEAN CELL VOLUME 79.6 fl (80-96); MEAN PLT VOLUME 9.2 fl (7.5-11.1); NEUTROPHILS 68.8 % (42.8-82.8); PLATELET COUNT 281 K/MM3 (134-434)
[2017-05-14 07:09] LABS: PHOSPHOROUS 1.6 mg/dL (2.5-4.9)
[2017-05-14 07:11] LABS: INR 1.51 (0.82-1.09); PROTHROMBIN TIME (PATIENT) 16.8 SEC (9.98-11.88)
[2017-05-14 07:15] LABS: TROPONIN I 0.02 ng/ml (0.00-0.05)
[2017-05-14 07:24] LABS: LDH 375 U/L (84-246)
[2017-05-14 07:30] LABS: ALBUMIN 2.7 g/dl (3.4-5.0); AMYLASE 15 U/L (25-115); ANION GAP 6 (8-16); BILIRUBIN,DIRECT 0.5 mg/dL (0.0-0.2); BILIRUBIN,TOTAL 1.2 mg/dL (0.2-1.0); CALCIUM 7.6 mg/dL (8.5-10.1); CO2 38 mmol/L (21-32); CREATININE 0.5 mg/dL (0.55-1.02); GLUCOSE,RANDOM 73 mg/dL (74-106); MAGNESIUM 2.2 mg/dL (1.8-2.4); SGOT/AST 43 U/L (15-37); SGPT/ALT 23 U/L (12-78); TOT PROT 6.4 g/dl (6.4-8.2)
[2017-05-14 07:31] LABS: ALK PHOS 147 U/L (45-117)
[2017-05-14 08:25] LABS: HYPOCHROMIA 2+; PLATELET ESTIMATE ADEQUATE (NORMAL)
[2017-05-14 08:26] LABS: ANISOCYTOSIS 3+
[2017-05-14 09:00] LABS: MCH 27.2 pg (25.7-33.7); MCHC 33.9 g/dl (32.0-36.0); MEAN CELL VOLUME 80.2 fl (80-96); MEAN PLT VOLUME 8.7 fl (7.5-11.1); PLATELET COUNT 216 K/MM3 (134-434); RDW 22.6 % (11.6-15.6); WHITE BLOOD COUNT 6.7 K/mm3 (4.0-10.0)
[2017-05-14 09:39] LABS: ALBUMIN 2.6 g/dl (3.4-5.0); ALK PHOS 144 U/L (45-117); ANION GAP 5 (8-16); BILIRUBIN,TOTAL 1.2 mg/dL (0.2-1.0); CALCIUM 7.5 mg/dL (8.5-10.1); CO2 39 mmol/L (21-32); CREATININE 0.4 mg/dL (0.55-1.02); GLUCOSE,RANDOM 71 mg/dL (74-106); SGOT/AST 44 U/L (15-37); SGPT/ALT 22 U/L (12-78); TOT PROT 6.4 g/dl (6.4-8.2)
--- NOTE | 2017-05-14 09:42 | CON.GI ---
Consult Consult Specialty:: GI Referred by:: Hospitalist Reason for Consultation:: Anemia - History of Present Illness Chief Complaint: Abdominal pain and anemia History of Present Illness: 31 F with h/o anemia ((normocytic) states she gets abdominal pain and takes large doses of NSAIDs to relieve the pain. She was admitted to [facility] ER as she is a patient of Dr Quintin Corado. She was noted to have a Hgb of 2. He apparently was not available and the patient was transferred to [facility] ICU. She had Paulie patch for perforated gastric ulcer in 2016. She is currently guaiac negative. Of note, her INR is 1.5 and B12 is 2900. She denies taking vitamins or monthly vitamin injections. - History Source History Provided By: Medical Record Limitations to Obtaining History: Poor Historian - Past Medical History Cardio/Vascular: Yes: HTN ...LMP: 01/04/17 Psych: Yes: Depression Additional Medical History: Anemia. Depression not on meds - Past Surgical History Past Surgical History: Yes: None - Alcohol/Substance Use Hx Alcohol Use: No History of Substance Use: reports: None - Smoking History Smoking history: Current every day smoker Have you smoked in the past 12 months: Yes Aproximately how many cigarettes per day: 10 - Social History ADL: Independent History of Recent Travel: No Home Medications - Allergies Allergies/Adverse Reactions: Allergies Allergy/AdvReac Type Severity Reaction Status Date / Time No Known Drug Allergies Allergy Verified 05/13/17 16:05 - Home Medications Home Medications: Ambulatory Orders Amox-Tr/K Cl [Augmentin 875-125mg Tablet -] 1 tab PO BID #4 tablet 01/29/17 Ferrous Sulfate [Feosol] 325 mg PO BID #60 01/29/17 Miscellaneous Drug Not In Syst [Outpatient Lab Test] 1 each ASDIR #1 misc Oxycodone HCl/Acetaminophen [Percocet 5-325 mg Tablet] 1 tab PO Q8H #10 tablet MDD 3 tab 01/29/17 Pantoprazole Sodium [Protonix -] 40 mg PO DAILY #30 tablet.ec 01/29/17 Family Disease History - Family Disease History Family Disease History: Other: Mother (anemia) Physical Exam-GI Vital Signs: Vital Signs Temperature 99.2 F 05/14/17 02:00 Pulse Rate 86 05/14/17 04:00 Respiratory Rate 18 05/14/17 04:00 Blood Pressure 141/92 05/14/17 04:00 O2 Sat by Pulse Oximetry (%) 92 L 05/13/17 22:00 Constitutional: Yes: Well Nourished HENT: Yes: Normocephalic Neck: Yes: Supple Cardiovascular: Yes: Regular Rate and Rhythm Respiratory: Yes: CTA Bilaterally Gastrointestinal Inspection: Yes: Ascites ...Auscultate: Yes: Normoactive Bowel Sounds ...Palpate: Yes: Soft (distended) Wound/Incision: Yes: Well Approximated Labs: CBC, BMP 05/14/17 08:25 INR, PTT INR 1.51 (0.82-1.09) H 05/14/17 05:20 Fibrinogen 247.0 mg/dL (238-498) 05/14/17 05:20 Hepatic Panel Total Bilirubin 1.2 mg/dL (0.2-1.0) H 05/14/17 08:25 Direct Bilirubin 0.5 mg/dL (0.0-0.2) H 05/14/17 05:20 AST 44 U/L (15-37) H 05/14/17 08:25 ALT 22 U/L (12-78) 05/14/17 08:25 Alkaline Phosphatase 144 U/L (45-117) H 05/14/17 08:25 Albumin 2.6 g/dl (3.4-5.0) L 05/14/17 08:25 Imaging - Results Cat Scan: Report Reviewed (CT done in January shows metal clips in duodenum and ascites.) Assessment/Plan 31 F with above history with several admissions over the past 12 months and [address] scans now admitted with profound normocytic anemia. Of note, INR 1.5 and B12 2900. Patient has ascites unk etiology. She is on FeSO4 at home but unclear if she takes it. Possible underlying hematologic malignancy. Her situation is complicated by her non-compliance and reliance on NSAIDs despite prior surgery for perforated gastric ulcer. Echo shows severe mitral and tricuspid regurgitation. Rec: EGD tomorrow PPI Diagnostic peritoneal tap -check fluid cytology, cell counts and albumin. Ascites may be cardiac. Heme-onc on case Follow CT results from this admission Transfuse to Hgb >8 Tox screen Correct coagulopathy
[2017-05-14] MEDS: PANTOPRAZOLE SODIUM 100 ML IVPB SCH ×2 (09:56→22:23)
[2017-05-14] MEDS: MUPIROCIN 2% TOPICAL OINTMENT FOR DECOLONIZATION NS SCH ×2 (09:56→22:22)
[2017-05-14] MEDS: PHYTONADIONE 10 MG/1 ML AMP SQ SCH (10:00)
[2017-05-14 10:18] LABS: LDH 376 U/L (84-246)
[2017-05-14] MEDS ORDERED: SODIUM CHLORIDE 0.9% 500 ML INFUS.BAG IV ONE (11:15)
[2017-05-14 11:20] LABS: FERRITIN 32.047 ng/ml (6.9-282.5)
[2017-05-14] MEDS ORDERED: ACETAMINOPHEN 1000 MG/100 ML VIAL (NON FORMULARY) IVPB ONE ×2 (11:30→18:56)
--- NOTE | 2017-05-14 12:33 | PN ---
Teaching Attending Note Name of Resident: Blanca Sanchez ATTENDING PHYSICIAN STATEMENT I saw and evaluated the patient. I reviewed the resident's note and discussed the case with the resident. I agree with the resident's findings and plan as documented. SUBJECTIVE: Pt seen and examined in the ICU. Transfused 5 units PRBC. Denies shortness of breath or chest pain. No lightheadedness or dizziness. OBJECTIVE: Last Vital Signs Temp Pulse Resp BP Pulse Ox 98.1 F 90 18 139/98 100 05/14/17 10:00 05/14/17 12:00 05/14/17 12:00 05/14/17 12:00 05/14/17 10:30 Intake & Output 05/11/17 05/12/17 05/13/17 05/14/17 23:59 23:59 23:59 23:59 Intake Total 4397 Output Total 550 2000 Balance -550 2397 Weight 109 lb 6 oz 116 lb 2 oz Gen: NAD at rest Heart: RRR Lung: decreased breath sounds at the bases Abd: soft, nontender Ext: + edema CBC, BMP 05/14/17 08:25 05/14/17 08:25 Active Medications Chlorhexidine Gluconate (Hibiclens For Decolonization -) 1 applic TP HS [facility] Last Admin: 05/13/17 23:09 Dose: 1 applic Pantoprazole Sodium (Protonix 40mg Ivpb (Pre-Docked)) 100 mls @ 200 mls/hr IVPB BID EMILY Potassium Chloride (Potassium Chloride 10 Meq Premix Ivpb -) 100 mls @ 100 mls/ hr IVPB Q60M [facility] Stop: 05/14/17 14:29 Last Admin: 05/14/17 12:00 Dose: 100 mls/hr Mupirocin (Bactroban Ointment (For Decolonization) -) 1 applic NS BID [facility] Stop: 05/18/17 21:59 Last Admin: 05/14/17 09:56 Dose: 1 applic Phytonadione (Aqua Mephyton Injection -) 5 mg SQ DAILY [facility] Stop: 05/16/17 12:00 Last Admin: 05/14/17 10:00 Dose: 5 mg ASSESSMENT AND PLAN: Severe Anemia s/p PRBC transfusions Recent Perforated Duodenal Ulcer repair r/o GI Bleed Hypokalemia - monitor H/H - transfuse as needed - NPO - PPI - IVF - replete lytes - echocardiogram - ?high output cardiac failure - ensure large bore access - DVT prophylaxis
--- NOTE | 2017-05-14 12:54 | EKG ---
Test Reason : Blood Pressure : / mmHG Vent. Rate : 091 BPM Atrial Rate : 091 BPM P-R Int : 132 ms QRS Dur : 080 ms QT Int : 506 ms P-R-T Axes : 063 016 031 degrees QTc Int : 622 ms NORMAL SINUS RHYTHM T WAVE ABNORMALITY, CONSIDER INFERIOR ISCHEMIA PROLONGED QT ABNORMAL ECG WHEN COMPARED WITH ECG OF 23-JAN-2017 09:53, T WAVE VARIATION Confirmed by CHAUNCEY KEBEDE MD ([id number]) on 05/14/2017 12:54:14 PM Referred By: Confirmed By:CHAUNCEY KEBEDE MD
[2017-05-14 13:58] LABS: URINE MARIJUANA THC NEGATIVE ng/ml (CUTOFF=50)
--- NOTE | 2017-05-14 14:21 | PN ---
Physical Exam: SUBJECTIVE: Patient seen and examined in ICU. She is feeling weak and is complaining of a headache. OBJECTIVE: Vital Signs Period Temp Pulse Resp BP Sys/Suárez Pulse Ox Last 24 Hr 98 F-99.2 F 81-90 15-22 130-145/92-109 92-100 GENERAL: The patient is awake, alert, and fully oriented, in no acute distress. HEAD: Normal with no signs of trauma. EYES: extraocular movements intact, sclera anicteric, conjunctiva pale. No ptosis. ENT: oropharynx clear without exudates, moist mucous membranes. NECK: Trachea midline, full range of motion, supple. LUNGS: Breath sounds equal, clear to auscultation bilaterally, no wheezes, no crackles, no accessory muscle use. HEART: Regular rate and rhythm, S1, S2 without murmur, rub or gallop. ABDOMEN: Soft, nontender, nondistended, normoactive bowel sounds, no guarding, no rebound, no hepatosplenomegaly, no masses. EXTREMITIES: warm, 1+ edema. NEUROLOGICAL: Normal speech, no facial asymmetry, motor 4/5 in all extremities, sensation intact, gait not observed. PSYCH: Normal mood, normal affect. SKIN: Warm, dry, normal turgor. Laboratory Results - last 24 hr 05/13/17 05/13/17 05/13/17 23:00 23:50 23:50 WBC RBC Hgb Hct MCV MCHC RDW Plt Count MPV Neutrophils % Lymphocytes % Monocytes % Eosinophils % Basophils % Nucleated RBCs Differential Comment Platelet Estimate Hypochromic-Microcytic Anisocytosis INR PTT (Actin FS) Fibrinogen Sodium Potassium Chloride Carbon Dioxide Anion Gap BUN Creatinine Creat Clearance w eGFR Random Glucose Lactic Acid 1.4 Calcium Phosphorus Magnesium Ferritin Total Bilirubin Direct Bilirubin AST ALT Alkaline Phosphatase LD Total CK-MB (CK-2) Troponin I 0.02 Total Protein Albumin Total Amylase Vitamin B12 Serum Folate Urine Color Ltyellow Urine Appearance Clear Urine pH 9.0 H Ur Specific Mcqueeney 1.015 Urine Protein Negative Urine Glucose (UA) Negative Urine Ketones Negative Urine Blood Negative Urine Nitrite Negative Urine Bilirubin Negative Urine Urobilinogen Negative Ur Leukocyte Esterase Trace H Urine RBC <1 Urine WBC 3 Ur Epithelial Cells Rare Urine Bacteria Rare Hyaline Casts 3 Urine Mucus Rare Opiates Screen Methadone Screen Barbiturate Screen Phencyclidine Screen Ur Amphetamines Screen MDMA (Ecstasy) Screen Benzodiazepines Screen Cocaine Screen U Marijuana (THC) Screen 05/13/17 05/13/17 05/13/17 23:50 23:50 23:50 WBC 6.9 RBC 1.72 L D Hgb 4.2 L* D Hct 13.1 L MCV 76.5 L MCHC 32.2 RDW 22.5 H D Plt Count 238 D MPV 9.1 Neutrophils % Lymphocytes % Monocytes % Eosinophils % Basophils % Nucleated RBCs Differential Comment Platelet Estimate Hypochromic-Microcytic Anisocytosis INR 1.71 H PTT (Actin FS) Fibrinogen Sodium 140 Potassium 2.7 L* D Chloride 94 L Carbon Dioxide 40 H Anion Gap 6 L BUN 7 Creatinine 0.4 L D Creat Clearance w eGFR Random Glucose 85 Lactic Acid Calcium 7.1 L Phosphorus 1.9 L D Magnesium 2.3 D Ferritin Total Bilirubin Direct Bilirubin AST ALT Alkaline Phosphatase LD Total CK-MB (CK-2) Troponin I Total Protein Albumin Total Amylase Vitamin B12 Serum Folate Urine Color Urine Appearance Urine pH Ur Specific Mcqueeney Urine Protein Urine Glucose (UA) Urine Ketones Urine Blood Urine Nitrite Urine Bilirubin Urine Urobilinogen Ur Leukocyte Esterase Urine RBC Urine WBC Ur Epithelial Cells Urine Bacteria Hyaline Casts Urine Mucus Opiates Screen Methadone Screen Barbiturate Screen Phencyclidine Screen Ur Amphetamines Screen MDMA (Ecstasy) Screen Benzodiazepines Screen Cocaine Screen U Marijuana (THC) Screen 05/14/17 05/14/17 05/14/17 05:20 05:20 05:20 WBC 7.0 RBC 2.05 L Hgb 5.6 L* D Hct 16.3 L D MCV 79.6 L MCHC 34.0 RDW 24.0 H Plt Count 281 MPV 9.2 Neutrophils % 68.8 Lymphocytes % 27.0 D Monocytes % 2.7 L Eosinophils % 1.0 D Basophils % 0.5 Nucleated RBCs Differential Comment Platelet Estimate Hypochromic-Microcytic Anisocytosis INR PTT (Actin FS) Fibrinogen Sodium Potassium Chloride Carbon Dioxide Anion Gap BUN Creatinine Creat Clearance w eGFR Random Glucose Lactic Acid 1.5 Calcium Phosphorus Magnesium Cancelled Ferritin Total Bilirubin Direct Bilirubin AST ALT Alkaline Phosphatase LD Total CK-MB (CK-2) Troponin I Total Protein Albumin Total Amylase Vitamin B12 Serum Folate Urine Color Urine Appearance Urine pH Ur Specific Mcqueeney Urine Protein Urine Glucose (UA) Urine Ketones Urine Blood Urine Nitrite Urine Bilirubin Urine Urobilinogen Ur Leukocyte Esterase Urine RBC Urine WBC Ur Epithelial Cells Urine Bacteria Hyaline Casts Urine Mucus Opiates Screen Methadone Screen Barbiturate Screen Phencyclidine Screen Ur Amphetamines Screen MDMA (Ecstasy) Screen Benzodiazepines Screen Cocaine Screen U Marijuana (THC) Screen 05/14/17 05/14/17 05/14/17 05:20 05:20 05:20 WBC RBC Hgb Hct MCV MCHC RDW Plt Count MPV Neutrophils % Lymphocytes % Monocytes % Eosinophils % Basophils % Nucleated RBCs Differential Comment Platelet Estimate Hypochromic-Microcytic Anisocytosis INR PTT (Actin FS) 21.5 L Fibrinogen Sodium 139 Cancelled Potassium 3.0 L Cancelled Chloride 95 L Cancelled Carbon Dioxide 38 H Cancelled Anion Gap 6 L Cancelled BUN 6 L Cancelled Creatinine 0.5 L D Cancelled Creat Clearance w eGFR > 60 Cancelled Random Glucose 73 L Cancelled Lactic Acid Calcium 7.6 L Cancelled Phosphorus 1.6 L Magnesium 2.2 Ferritin Total Bilirubin 1.2 H D Cancelled Direct Bilirubin 0.5 H AST 43 H Cancelled ALT 23 Cancelled Alkaline Phosphatase 147 H Cancelled LD Total 375 H CK-MB (CK-2) < 1.000 Troponin I 0.02 Total Protein 6.4 Cancelled Albumin 2.7 L Cancelled Total Amylase 15 L D Vitamin B12 2960 H Cancelled Serum Folate 12 D Urine Color Urine Appearance Urine pH Ur Specific Mcqueeney Urine Protein Urine Glucose (UA) Urine Ketones Urine Blood Urine Nitrite Urine Bilirubin Urine Urobilinogen Ur Leukocyte Esterase Urine RBC Urine WBC Ur Epithelial Cells Urine Bacteria Hyaline Casts Urine Mucus Opiates Screen Methadone Screen Barbiturate Screen Phencyclidine Screen Ur Amphetamines Screen MDMA (Ecstasy) Screen Benzodiazepines Screen Cocaine Screen U Marijuana (THC) Screen 05/14/17 05/14/17 05/14/17 05:20 05:20 05:20 WBC 6.8 RBC 2.15 L D Hgb 5.6 L* D Hct 17.1 L D MCV 79.4 L MCHC 33.1 RDW 24.4 H Plt Count 246 MPV 9.2 Neutrophils % 69.8 Lymphocytes % 26.4 D Monocytes % 2.3 L Eosinophils % 1.2 D Basophils % 0.3 Nucleated RBCs 6 H Differential Comment Slide scanned Platelet Estimate Adequate Hypochromic-Microcytic 2+ Anisocytosis 3+ INR 1.51 H PTT (Actin FS) Fibrinogen 247.0 Sodium Potassium Chloride Carbon Dioxide Anion Gap BUN Creatinine Creat Clearance w eGFR Random Glucose Lactic Acid Calcium Phosphorus Magnesium Ferritin Total Bilirubin Cancelled Direct Bilirubin Cancelled AST Cancelled ALT Cancelled Alkaline Phosphatase Cancelled LD Total Cancelled CK-MB (CK-2) Troponin I Total Protein Cancelled Albumin Cancelled Total Amylase Cancelled Vitamin B12 Serum Folate Urine Color Urine Appearance Urine pH Ur Specific Mcqueeney Urine Protein Urine Glucose (UA) Urine Ketones Urine Blood Urine Nitrite Urine Bilirubin Urine Urobilinogen Ur Leukocyte Esterase Urine RBC Urine WBC Ur Epithelial Cells Urine Bacteria Hyaline Casts Urine Mucus Opiates Screen Methadone Screen Barbiturate Screen Phencyclidine Screen Ur Amphetamines Screen MDMA (Ecstasy) Screen Benzodiazepines Screen Cocaine Screen U Marijuana (THC) Screen 05/14/17 05/14/17 05/14/17 05:20 05:20 08:25 WBC 6.7 RBC 2.56 L Hgb 6.9 L* D Hct 20.5 L D MCV 80.2 MCHC 33.9 RDW 22.6 H Plt Count 216 MPV 8.7 Neutrophils % Lymphocytes % Monocytes % Eosinophils % Basophils % Nucleated RBCs Differential Comment Platelet Estimate Hypochromic-Microcytic Anisocytosis INR PTT (Actin FS) Fibrinogen Sodium Potassium Chloride Carbon Dioxide Anion Gap BUN Creatinine Creat Clearance w eGFR Random Glucose Lactic Acid Calcium 7.7 L Phosphorus Magnesium Ferritin Total Bilirubin Direct Bilirubin AST ALT Alkaline Phosphatase LD Total CK-MB (CK-2) Cancelled Troponin I Total Protein Albumin Total Amylase Vitamin B12 Serum Folate Urine Color Urine Appearance Urine pH Ur Specific Mcqueeney Urine Protein Urine Glucose (UA) Urine Ketones Urine Blood Urine Nitrite Urine Bilirubin Urine Urobilinogen Ur Leukocyte Esterase Urine RBC Urine WBC Ur Epithelial Cells Urine Bacteria Hyaline Casts Urine Mucus Opiates Screen Methadone Screen Barbiturate Screen Phencyclidine Screen Ur Amphetamines Screen MDMA (Ecstasy) Screen Benzodiazepines Screen Cocaine Screen U Marijuana (THC) Screen 05/14/17 05/14/17 05/14/17 08:25 08:25 11:55 WBC RBC Hgb Hct MCV MCHC RDW Plt Count MPV Neutrophils % Lymphocytes % Monocytes % Eosinophils % Basophils % Nucleated RBCs Differential Comment Platelet Estimate Hypochromic-Microcytic Anisocytosis INR PTT (Actin FS) Fibrinogen Sodium 139 Potassium 2.6 L* Chloride 95 L Carbon Dioxide 39 H Anion Gap 5 L BUN 6 L Creatinine 0.4 L Creat Clearance w eGFR > 60 Random Glucose 71 L Lactic Acid Calcium 7.5 L Phosphorus Magnesium Ferritin 32.047 Total Bilirubin 1.2 H Direct Bilirubin AST 44 H ALT 22 Alkaline Phosphatase 144 H LD Total 376 H Cancelled CK-MB (CK-2) Troponin I Total Protein 6.4 Albumin 2.6 L Total Amylase Vitamin B12 2907 H Serum Folate 11 D Urine Color Urine Appearance Urine pH Ur Specific Mcqueeney Urine Protein Urine Glucose (UA) Urine Ketones Urine Blood Urine Nitrite Urine Bilirubin Urine Urobilinogen Ur Leukocyte Esterase Urine RBC Urine WBC Ur Epithelial Cells Urine Bacteria Hyaline Casts Urine Mucus Opiates Screen Negative Methadone Screen Negative Barbiturate Screen Negative Phencyclidine Screen Negative Ur Amphetamines Screen Negative MDMA (Ecstasy) Screen Negative Benzodiazepines Screen Negative Cocaine Screen Negative U Marijuana (THC) Screen Negative Active Medications Generic Name Dose Route Start Last Admin Trade Name Freq PRN Reason Stop Dose Admin Chlorhexidine Gluconate 1 applic 05/13/17 22:00 05/13/17 23:09 Hibiclens For Decolonization - TP 1 applic HS EMILY Administration Pantoprazole Sodium 100 mls @ 200 mls/hr 05/14/17 22:00 Protonix 40mg Ivpb (Pre-Docked) IVPB BID EMILY Potassium Chloride 100 mls @ 100 mls/hr 05/14/17 11:30 05/14/17 13:30 Potassium Chloride 10 Meq Premix Ivpb - IVPB 05/14/17 14:29 100 mls/hr Q60M EMILY Administration Mupirocin 1 applic 05/13/17 22:00 05/14/17 09:56 Bactroban Ointment (For Decolonization) - NS 05/18/17 21:59 1 applic BID EMILY Administration Phytonadione 5 mg 05/14/17 10:00 05/14/17 10:00 Aqua Mephyton Injection - SQ 05/16/17 12:00 5 mg DAILY EMILY Administration CT abdomen pelvis: moderate ascites, hepatomegaly with hepatic steatosis, pneumobilia, fistula can not be excluded ASSESSMENT/PLAN: 31 y/o F w/PMH of anemia (iron deficiency), hemorrhagic ovarian cysts, s/p surgery for perforated gastric ulcer 01/2017 presents to ER with worsening abdominal pain, nausea, and distention over the last 1-2 weeks. Admitted for symptomatic severe anemia w/Hgb of 2.1, lactic acidosis of 6.8, and abdominal pain. Severe normocytic anemia Hgb 2.1, goal hgb >7; FOBT neg, will obtain second one PRBCs to keep Hgb > 7, given 4 u total vit K 5 mg SQ given for elevated INR haptoglobin pending TSH ordered Hypokalemia: -cont potassium chloride 10meq x 5 bags and after checking afternoon K which was still low, another KCL -will monitor hx of hemorrhagic ovarian cysts - transvaginal U/S ordered, shows moderated ascites -OBGYN consult ordered hx of perforated gastric ulcer s/p surgery CT abd pelvis done Surgery consulted, no intervention recommended now GI consulted cont Protonix IV and NPO IR consulted Hematology consulted f/u CBC coags, b12, folate, ferritin, TIBC, B12 elevated, concern for malignant process Chest pain and dyspnea w/exertion likely secondary to anemia trops neg x2 f/u echo: severe mitral and tricuspid regurgitation, RV systolic pressure elevated, moderate pulmonary hypertension, increased severity from study in 04/05. cardiology consulted LE edema possibly due to low output failure from anemia Duplex U/S -no acute pathology, no DVT DVT ppx SCDs -FEN receiving blood transfusions monitor K NPO Dispo ICU monitoring Problem List - Problems (1) Hypokalemia Code(s): E87.6 - HYPOKALEMIA (2) Anemia Code(s): D64.9 - ANEMIA, UNSPECIFIED Qualifiers: Anemia type: unspecified type Qualified Code(s): D64.9 - Anemia, unspecified (3) Abdominal pain Code(s): R10.9 - UNSPECIFIED ABDOMINAL PAIN Qualifiers: Abdominal location: lower abdomen, unspecified Qualified Code(s): R10.30 - Lower abdominal pain, unspecified Visit type - Emergency Visit Emergency Visit: Yes ED Registration Date: 05/13/17 Care time: The patient presented to the Emergency Department on the above date and was hospitalized for further evaluation of their emergent condition. - New Patient This patient is new to me today: Yes Date on this admission: 05/14/17 - Critical Care Critical Care patient: Yes Total Critical Care Time (in minutes): 45 Critical Care Statement: The care of this patient involved high complexity decision making to prevent further life threatening deterioration of the patient 's condition and/or to evalute & treat vital organ system(s) failure or risk of failure.
[2017-05-14 15:31] LABS: MCH 28.2 pg (25.7-33.7); MCHC 34.7 g/dl (32.0-36.0); MEAN CELL VOLUME 81.2 fl (80-96); PLATELET COUNT 238 K/MM3 (134-434); RDW 21.2 % (11.6-15.6); WHITE BLOOD COUNT 7.7 K/mm3 (4.0-10.0)
[2017-05-14 15:59] LABS: ALBUMIN 2.7 g/dl (3.4-5.0); ANION GAP 7 (8-16); BILIRUBIN,TOTAL 1.5 mg/dL (0.2-1.0); CALCIUM 7.8 mg/dL (8.5-10.1); CO2 35 mmol/L (21-32); CREATININE 0.3 mg/dL (0.55-1.02); GLUCOSE,RANDOM 68 mg/dL (74-106); SGOT/AST 46 U/L (15-37); SGPT/ALT 22 U/L (12-78); TOT PROT 6.7 g/dl (6.4-8.2)
[2017-05-14 16:00] LABS: ALK PHOS 153 U/L (45-117)
--- NOTE | 2017-05-14 16:01 | PN ---
Teaching Attending Note Name of Resident: Darlene Srinivasan ATTENDING PHYSICIAN STATEMENT I saw and evaluated the patient. I reviewed the resident's note and discussed the case with the resident. I agree with the resident's findings and plan as documented. SUBJECTIVE: Patient is in ICU with no acute distress. denies having any shortness of breath , no nausea or vomiting. OBJECTIVE: Vital Signs Temperature 98 F 05/14/17 14:00 Pulse Rate 89 05/14/17 15:00 Respiratory Rate 19 05/14/17 15:00 Blood Pressure 141/101 05/14/17 15:00 O2 Sat by Pulse Oximetry (%) 100 05/14/17 10:30 Cardiac: S1S2 positive, RIVERA 3/6 LE: positive for swelling 3 plus edema B/L PE: per resident's note CBCD WBC 7.7 K/mm3 (4.0-10.0) 05/14/17 15:00 RBC 2.98 M/mm3 (3.60-5.2) L 05/14/17 15:00 Hgb 8.4 GM/dL (10.7-15.3) L D 05/14/17 15:00 Hct 24.2 % (32.4-45.2) L D 05/14/17 15:00 MCV 81.2 fl (80-96) 05/14/17 15:00 MCHC 34.7 g/dl (32.0-36.0) 05/14/17 15:00 RDW 21.2 % (11.6-15.6) H 05/14/17 15:00 Plt Count 238 K/MM3 (134-434) 05/14/17 15:00 MPV 9.0 fl (7.5-11.1) 05/14/17 15:00 CMP Sodium 139 mmol/L (136-145) 05/14/17 08:25 Potassium 2.6 mmol/L (3.5-5.1) L* 05/14/17 08:25 Chloride 95 mmol/L (98-107) L 05/14/17 08:25 Carbon Dioxide 39 mmol/L (21-32) H 05/14/17 08:25 Anion Gap 5 (8-16) L 05/14/17 08:25 BUN 6 mg/dL (7-18) L 05/14/17 08:25 Creatinine 0.4 mg/dL (0.55-1.02) L 05/14/17 08:25 Creat Clearance w eGFR > 60 (>60) 05/14/17 08:25 Random Glucose 71 mg/dL (74-106) L 05/14/17 08:25 Calcium 7.5 mg/dL (8.5-10.1) L 05/14/17 08:25 Total Bilirubin 1.2 mg/dL (0.2-1.0) H 05/14/17 08:25 AST 44 U/L (15-37) H 05/14/17 08:25 ALT 22 U/L (12-78) 05/14/17 08:25 Alkaline Phosphatase 144 U/L (45-117) H 05/14/17 08:25 Total Protein 6.4 g/dl (6.4-8.2) 05/14/17 08:25 Albumin 2.6 g/dl (3.4-5.0) L 05/14/17 08:25 CARDIAC ENZYMES Creatine Kinase 264 IU/L (26-192) H D 05/13/17 17:15 Troponin I 0.02 ng/ml (0.00-0.05) 05/14/17 05:20 Current Medications Generic Name Dose Route Start Last Admin Trade Name Lance PRN Reason Stop Dose Admin Chlorhexidine Gluconate 1 applic 05/13/17 22:00 05/13/17 23:09 Hibiclens For Decolonization - TP 1 applic HS EMILY Administration Pantoprazole Sodium 100 mls @ 200 mls/hr 05/14/17 22:00 Protonix 40mg Ivpb (Pre-Docked) IVPB BID EMILY Mupirocin 1 applic 05/13/17 22:00 05/14/17 09:56 Bactroban Ointment (For Decolonization) - NS 05/18/17 21:59 1 applic BID EMILY Administration Phytonadione 5 mg 05/14/17 10:00 05/14/17 10:00 Aqua Mephyton Injection - SQ 05/16/17 12:00 5 mg DAILY EMILY Administration Home Medications Medication Instructions Recorded Amox-Tr/K Cl [Augmentin 875-125mg 1 tab PO BID #4 tablet 01/29/17 Tablet -] Ferrous Sulfate [Feosol] 325 mg PO BID #60 01/29/17 Miscellaneous Drug Not In Syst 1 each ASDIR #1 misc 01/29/17 [Outpatient Lab Test] Oxycodone HCl/Acetaminophen 1 tab PO Q8H #10 tablet MDD 3 tab 01/29/17 [Percocet 5-325 mg Tablet] Pantoprazole Sodium [Protonix -] 40 mg PO DAILY #30 tablet.ec 01/29/[address]: LUNG BASES:Atelectasis/infiltration at the left base is again noted with a small effusion. LIVER: A large with heterogeneous enhancement suggesting hepatic steatosis. No reflux of contrast media into the hepatic veins noted. GALLBLADDER: Air within the gallbladder is present. BILIARY DUCTS: Pneumobilia. PANCREAS: Air within the pancreatic duct is noted. The pancreas otherwise appears unremarkable. SPLEEN: Negative. ADRENALS: Negative. KIDNEYS: Negative. AORTA: Negative. LYMPH NODES: Negative. BOWEL: Nasogastric tube is noted in place. Metallic coils are noted in the region of the stomach from prior vascular intervention. There is no evidence of bowel obstruction. Visualized portions of the appendix appear unremarkable. There is no active extravasation of contrast media. There is moderate ascites. No free abdominal air is present. PELVIS: The bladder is distended. The uterus was identified. OTHER: Anasarca is present. No aggressive bone lesions seen. Preliminary dictation was given by the on-call radiologist. IMPRESSION: Hepatic steatosis. Hepatomegaly. Air within the biliary ducts, gallbladder and pancreatic duct, correlate with prior surgical history or endoscopic history. A fistulous track with a hollow viscus cannot be excluded. Moderate ascites. Metallic coil is from prior embolization. Additional comments noted above. US/TRANSVAGINAL ULTRASOUND US HISTORY PROVIDED: Anemia. Real time examination of the pelvis utilizing both the transabdominal and transvaginal probes demonstrates the following: The uterus is normal in size measuring 6.3 x 3.9 x 3.0 cm. No uterine masses are seen. A normal appearing endometrium of 6 mm thickness was demonstrated. The ovaries are normal in size and texture with arterial flow documented to both ovaries with no evidence of ovarian cysts. There is no evidence of adnexal masses. There is a moderate amount of free fluid throughout the pelvis. The etiology of this ascites is uncertain. IMPRESSION: Moderate pelvic ascites, otherwise normal pelvic sonogram. Please see above discussion. CT of abdomen: Low hematocrit, history of GI bleed. Dizziness. TECHNIQUE: Helical images of the chest, abdomen and pelvis were obtained without contrast. FINDINGS: LUNGS: Atelectasis/infiltration present at the left base. No endobronchial lesions seen. Pleura: Trace effusion is present on the left side. Mediastinum: Central line via the right internal jugular vein is noted with the tip within the SVC. The thyroid appears homogeneous. Difficult to evaluate the mediastinum without intravenous contrast media. CARDIAC: Negative. Liver: Hepatomegaly is present. There is fatty infiltration of the liver. No focal liver lesions seen on this unenhanced study. Gallbladder: Air within the gallbladder seen. Biliary: Pneumobilia is present. Pancreas: Difficult to evaluate due to scanty retroperitoneal fat. No IV contrast. It within the pancreatic duct is present. Spleen: Negative. Adrenals: Unable to visualize on this unenhanced study due to scanty retroperitoneal fat. Kidneys: No hydronephrosis or nephrolithiasis seen. Limited without intravenous contrast media. Aorta: Metallic coils are identified from prior embolization. Lymph nodes : Difficult to evaluate due to scanty retroperitoneal fat and no intravenous contrast media. Bowel: No evidence of obstruction. Unremarkable appendix. Moderate ascites. No free intraperitoneal air is identified. Pelvis: The bladder is distended. The uterus was identified. Pelvic ascites. Other: No aggressive bone lesions seen. Anasarca. Preliminary dictation was performed by the on-call radiologist. IMPRESSION: Limited study without oral contrast or intravenous contrast media. Atelectasis/infiltration present at the left base. Hepatomegaly with hepatic steatosis. Pneumobilia, correlate with endoscopic history. A fistula cannot be excluded. Metallic coils from prior embolization. Ascites. Distended bladder. Additional comments noted above. ECHO: 41.9% , Mild AR, Severe MR, and TR, mild pulmonic valvular regurgitation, left atrium mildly dilated, right atrium mildly dilated. ASSESSMENT AND PLAN: Patient is a 31 y/o F with PMHx of anemia (iron deficiency), hemorrhagic ovarian cysts, s/p surgery for perforated gastric ulcer 01/2017 presents to ER with worsening abdominal pain, nausea, and distention over the last 1-2 weeks. # Acute severe normocytic anemia with hemoglobin of 2.0 s/p transfusion of 4 units, with 2 units of FFP Hgb 2.1, goal hgb >7; FOBT neg, given 4 u total, s/p vit K 5 mg due to elevated INR R/o Thyroid disorder ;TSH ordered, FT4, Ft3 stat ordered. for consult, r/o SS disease ordered ss panel, GI consult for further GI w/u. # Acute Hypokalemia: on potassium chloride 10meq x 3 bags will give 2 more rider total of 50mEq #Severe MR and Severe TR with EJF of 40% Cardiology consult ;with Lower extremity edema b/l 3 plus , will check TSH,Ft4,Ft3 #hx of hemorrhagic ovarian cysts - transvaginal U/S ordered, shows moderated ascites # Hx of perforated gastric ulcer s/p surgery Ct abd. and pelvis as above
--- NOTE | 2017-05-14 16:13 | CONSULT ---
- Consultation REQUESTING PROVIDER: Enrique CONSULT REQUEST: We have been asked to surgically evaluate this patient for abdominal pain. PCP:Fiona Nunez HISTORY OF PRESENT ILLNESS: CTSP who is a 31 y/o A/A/F s/p ex-lap and Paulie patch closure of a perforated ulcer 01/23/17; patient roberta known to me from # post op visits; when last seen she appeared anemic; I told her to go to the ER; she did not and presented 05/13/17 w/ nausea/weakness/vague abdominal pain; she denied BRBPR and/or bloody emesis. She continues to smoke despite bein counseled not to among other issues. Hospiyal course to date reviewed. PMHx: reveiwed PSHx: reviewed Home Medications Medication Instructions Recorded Amox-Tr/K Cl [Augmentin 875-125mg 1 tab PO BID #4 tablet 01/29/17 Tablet -] Ferrous Sulfate [Feosol] 325 mg PO BID #60 01/29/17 Miscellaneous Drug Not In Syst 1 each ASDIR #1 misc 01/29/17 [Outpatient Lab Test] Oxycodone HCl/Acetaminophen 1 tab PO Q8H #10 tablet MDD 3 tab 01/29/17 [Percocet 5-325 mg Tablet] Pantoprazole Sodium [Protonix -] 40 mg PO DAILY #30 tablet.ec 01/29/17 Allergies Allergy/AdvReac Type Severity Reaction Status Date / Time No Known Drug Allergies Allergy Verified 05/13/17 16:05 PHYSICAL EXAM: GENERAL: Awake, alert, and fully oriented, in no acute distress. HEAD: Normal with no signs of trauma. EYES: PERRL, sclera anicteric, conjunctiva clear. NECK: Normal ROM, supple without lymphadenopathy, JVD, or masses. ABDOMEN: Soft, nontender, not distended, normoactive bowel sounds, no guarding, no rebound, no masses. No organomegaly. No hernias; healed midline scar. MUSCULOSKELETAL: Normal ROM at all joints. No bony deformities or tenderness. No CVA tenderness. UPPER EXTREMITIES: 2+ pulses, warm, well-perfused. No cyanosis. Cap refill <2 seconds. No peripheral edema. LOWER EXTREMITIES: 2+ pulses, warm, well-perfused. No calf tenderness. No peripheral edema. NEUROLOGICAL: Normal speech, gait not observed. PSYCH: Cooperative. Good eye contact. Appropriate mood and affect. SKIN: Warm, dry, normal turgor, no rashes or lesions noted. Vital Signs Temperature 98 F 05/14/17 14:00 Pulse Rate 89 05/14/17 15:00 Respiratory Rate 19 05/14/17 15:00 Blood Pressure 141/101 05/14/17 15:00 O2 Sat by Pulse Oximetry (%) 100 05/14/17 10:30 Lab Results WBC 7.7 K/mm3 (4.0-10.0) 05/14/17 15:00 RBC 2.98 M/mm3 (3.60-5.2) L 05/14/17 15:00 Hgb 8.4 GM/dL (10.7-15.3) L D 05/14/17 15:00 Hct 24.2 % (32.4-45.2) L D 05/14/17 15:00 MCV 81.2 fl (80-96) 05/14/17 15:00 MCHC 34.7 g/dl (32.0-36.0) 05/14/17 15:00 RDW 21.2 % (11.6-15.6) H 05/14/17 15:00 Plt Count 238 K/MM3 (134-434) 05/14/17 15:00 Sodium 139 mmol/L (136-145) 05/14/17 08:25 Potassium 2.6 mmol/L (3.5-5.1) L* 05/14/17 08:25 Chloride 95 mmol/L (98-107) L 05/14/17 08:25 Carbon Dioxide 39 mmol/L (21-32) H 05/14/17 08:25 Anion Gap 5 (8-16) L 05/14/17 08:25 BUN 6 mg/dL (7-18) L 05/14/17 08:25 Creatinine 0.4 mg/dL (0.55-1.02) L 05/14/17 08:25 Random Glucose 71 mg/dL (74-106) L 05/14/17 08:25 Calcium 7.5 mg/dL (8.5-10.1) L 05/14/17 08:25 Blood Type O POSITIVE 05/13/17 17:15 Antibody Screen Positive H 05/13/17 17:15 INR 1.51 (0.82-1.09) H 05/14/17 05:20 w/u to date reviewed. IMP: no evidence of an acute surgical abdomen at this time or need for surgical intervention; would continue w/u and resuscitation; will f/u GI/Heme consults reviewed as well. Malick Robin MD FACS Visit type - Case Type Case Type: ED Admission - Emergency Emergency Visit: Yes ED Registration Date: 05/13/17 Care time: The patient presented to the Emergency Department on the above date and was hospitalized for further evaluation of their emergent condition. - New patient This patient is new to me today: No - Critical Care Critical Care patient: Yes Total Critical Care Time: 20
--- NOTE | 2017-05-14 16:42 | PN ---
Progress Note (short form) - Note Progress Note: 31-year-old woman who presented to the ER complaining of abdominal pain. She has been having worsening abdominal distention, nausea,vomiting, lethargy She was noted to have Hgb of 2.9 Transfused PRBCs DEnies active bleeding. Repiorts menstrual cycles --Q 20 days for 2 days PAST MEDICAL HISTORY Anemia Hypertension Depression Migraine headache Ovarian cysts PAST SURGICAL HISTORY None Allergies No Known Drug Allergies Allergy (Verified 01/11/17 10:58) HOME MEDICATIONS 3 Medication Instructions Recorded Tramadol HCl 50 mg PO TID #15 tablet MDD 4 11/15/16 Omeprazole 20 mg PO DAILY 01/23/17 Recent Travel: No Social History: Smoking: Smokes 6 cigarettes/day Alcohol: Denies Drugs: Denies Family History: Unremarkable Last Vital Signs Temp Pulse Resp BP Pulse Ox 98.3 F 98 H 20 128/82 98 01/29/17 15:06 01/29/17 15:06 01/29/17 15:06 01/29/17 14:00 01/29/17 09:00 HEENT: normocephalic/atraumatic Cor: RSR, No murmurs, No gallops Lungs: Clear to P&A Abd: Soft, Normal bowel sounds, mild distention Ext:2+ edema b/l Chest x-ray: No acute process CT abd/pelvis: Large free air and free fluid. Surgical clips in region of duodenum. ASSESSMENT/PLAN: This is a 31-year-old woman with a history of iron-deficiency anemia, depression , HTN, migraine headaches, ovarian cysts who comes to the ER with worsening abdominal distention, lethargy,Hgb of 2.9 Patient had a perforated pyloric channel ulcer s/p garcia patch on 01/23/17 Anemia--microcytic. Also with chronic severe anemia causing rt. heart failure? MCV--79-81 chronic Suspect iron deficiency+ chronic disease reports menses q 20 days for 2 days Will get [employer] consult For EGD oper GI team Other screening tests for anemia ordered Patient had been noncompliant with followup. She reports that due o her personal family problems she has not kept up with follow up. Anasarca/ascites: ?? rt. heart failure from severe anemia Cardio consult
--- NOTE | 2017-05-14 17:16 | PN ---
Physical Exam: SUBJECTIVE: Patient seen and examined at bed side this morning. Complaints of tiredness and weak. Denies chest pain, sob, cough, palpitation, abdominal pain, nausea or vomiting. Bowel/Bladder habit normal. Sleep/Appetite normal. LMP: 1st week of March Has a one year old son Has been feeling tired and weak since a month. Has h/o lower extremity swelling since a month. OBJECTIVE: Vital Signs Period Temp Pulse Resp BP Sys/Suárez Pulse Ox Last 24 Hr 98 F-99.2 F 81-93 15-22 130-145/92-109 92-100 GENERAL: Young female, lying comfortably in bed, is awake, alert, and fully oriented, in no acute distress, NG tube in place. HEAD: Normal with no signs of trauma. EYES: EOM intact, slight pallor, no icterus. ENT: Ears normal, moist mucous membranes. NECK: Supple LUNGS: Breath sounds equal, clear to auscultation bilaterally, no wheezes, no crackles, no accessory muscle use. HEART: Tachycardic, Regular rate and rhythm, S1, S2 with systolic murmur. ABDOMEN: Surgical scar isabel, Soft, nontender, nondistended, normoactive bowel sounds, no guarding, no rebound, no hepatosplenomegaly, no masses. EXTREMITIES: UPPER 2+ pulses, warm, well-perfused, no edema. LOWER EXTREMITIES: 2+ pulses, warm, well-perfused, B/L pitting edema. NEUROLOGICAL: Cranial nerves II through XII grossly intact. Normal speech, gait not observed. PSYCH: Normal mood, normal affect. SKIN: Warm, dry, normal turgor, no rashes or lesions noted Laboratory Results - last 24 hr 05/13/17 05/13/17 05/13/17 23:00 23:50 23:50 WBC RBC Hgb Hct MCV MCHC RDW Plt Count MPV Neutrophils % Lymphocytes % Monocytes % Eosinophils % Basophils % Nucleated RBCs Differential Comment Platelet Estimate Hypochromic-Microcytic Anisocytosis Sickle Cell Screen INR PTT (Actin FS) Fibrinogen Sodium Potassium Chloride Carbon Dioxide Anion Gap BUN Creatinine Creat Clearance w eGFR Random Glucose Lactic Acid 1.4 Calcium Phosphorus Magnesium Ferritin Total Bilirubin Direct Bilirubin AST ALT Alkaline Phosphatase LD Total CK-MB (CK-2) Troponin I 0.02 Total Protein Albumin Total Amylase Vitamin B12 Serum Folate TSH Urine Color Ltyellow Urine Appearance Clear Urine pH 9.0 H Ur Specific [place] 1.015 Urine Protein Negative Urine Glucose (UA) Negative Urine Ketones Negative Urine Blood Negative Urine Nitrite Negative Urine Bilirubin Negative Urine Urobilinogen Negative Ur Leukocyte Esterase Trace H Urine RBC <1 Urine WBC 3 Ur Epithelial Cells Rare Urine Bacteria Rare Hyaline Casts 3 Urine Mucus Rare Opiates Screen Methadone Screen Barbiturate Screen Phencyclidine Screen Ur Amphetamines Screen MDMA (Ecstasy) Screen Benzodiazepines Screen Cocaine Screen U Marijuana (THC) Screen 05/13/17 05/13/17 05/13/17 23:50 23:50 23:50 WBC 6.9 RBC 1.72 L D Hgb 4.2 L* D Hct 13.1 L MCV 76.5 L MCHC 32.2 RDW 22.5 H D Plt Count 238 D MPV 9.1 Neutrophils % Lymphocytes % Monocytes % Eosinophils % Basophils % Nucleated RBCs Differential Comment Platelet Estimate Hypochromic-Microcytic Anisocytosis Sickle Cell Screen INR 1.71 H PTT (Actin FS) Fibrinogen Sodium 140 Potassium 2.7 L* D Chloride 94 L Carbon Dioxide 40 H Anion Gap 6 L BUN 7 Creatinine 0.4 L D Creat Clearance w eGFR Random Glucose 85 Lactic Acid Calcium 7.1 L Phosphorus 1.9 L D Magnesium 2.3 D Ferritin Total Bilirubin Direct Bilirubin AST ALT Alkaline Phosphatase LD Total CK-MB (CK-2) Troponin I Total Protein Albumin Total Amylase Vitamin B12 Serum Folate TSH Urine Color Urine Appearance Urine pH Ur Specific [place] Urine Protein Urine Glucose (UA) Urine Ketones Urine Blood Urine Nitrite Urine Bilirubin Urine Urobilinogen Ur Leukocyte Esterase Urine RBC Urine WBC Ur Epithelial Cells Urine Bacteria Hyaline Casts Urine Mucus Opiates Screen Methadone Screen Barbiturate Screen Phencyclidine Screen Ur Amphetamines Screen MDMA (Ecstasy) Screen Benzodiazepines Screen Cocaine Screen U Marijuana (THC) Screen 05/14/17 05/14/17 05/14/17 05:20 05:20 05:20 WBC 7.0 RBC 2.05 L Hgb 5.6 L* D Hct 16.3 L D MCV 79.6 L MCHC 34.0 RDW 24.0 H Plt Count 281 MPV 9.2 Neutrophils % 68.8 Lymphocytes % 27.0 D Monocytes % 2.7 L Eosinophils % 1.0 D Basophils % 0.5 Nucleated RBCs Differential Comment Platelet Estimate Hypochromic-Microcytic Anisocytosis Sickle Cell Screen INR PTT (Actin FS) Fibrinogen Sodium Potassium Chloride Carbon Dioxide Anion Gap BUN Creatinine Creat Clearance w eGFR Random Glucose Lactic Acid 1.5 Calcium Phosphorus Magnesium Cancelled Ferritin Total Bilirubin Direct Bilirubin AST ALT Alkaline Phosphatase LD Total CK-MB (CK-2) Troponin I Total Protein Albumin Total Amylase Vitamin B12 Serum Folate TSH Urine Color Urine Appearance Urine pH Ur Specific [place] Urine Protein Urine Glucose (UA) Urine Ketones Urine Blood Urine Nitrite Urine Bilirubin Urine Urobilinogen Ur Leukocyte Esterase Urine RBC Urine WBC Ur Epithelial Cells Urine Bacteria Hyaline Casts Urine Mucus Opiates Screen Methadone Screen Barbiturate Screen Phencyclidine Screen Ur Amphetamines Screen MDMA (Ecstasy) Screen Benzodiazepines Screen Cocaine Screen U Marijuana (THC) Screen 05/14/17 05/14/17 05/14/17 05:20 05:20 05:20 WBC RBC Hgb Hct MCV MCHC RDW Plt Count MPV Neutrophils % Lymphocytes % Monocytes % Eosinophils % Basophils % Nucleated RBCs Differential Comment Platelet Estimate Hypochromic-Microcytic Anisocytosis Sickle Cell Screen INR PTT (Actin FS) 21.5 L Fibrinogen Sodium 139 Cancelled Potassium 3.0 L Cancelled Chloride 95 L Cancelled Carbon Dioxide 38 H Cancelled Anion Gap 6 L Cancelled BUN 6 L Cancelled Creatinine 0.5 L D Cancelled Creat Clearance w eGFR > 60 Cancelled Random Glucose 73 L Cancelled Lactic Acid Calcium 7.6 L Cancelled Phosphorus 1.6 L Magnesium 2.2 Ferritin Total Bilirubin 1.2 H D Cancelled Direct Bilirubin 0.5 H AST 43 H Cancelled ALT 23 Cancelled Alkaline Phosphatase 147 H Cancelled LD Total 375 H CK-MB (CK-2) < 1.000 Troponin I 0.02 Total Protein 6.4 Cancelled Albumin 2.7 L Cancelled Total Amylase 15 L D Vitamin B12 2960 H Cancelled Serum Folate 12 D TSH Urine Color Urine Appearance Urine pH Ur Specific [place] Urine Protein Urine Glucose (UA) Urine Ketones Urine Blood Urine Nitrite Urine Bilirubin Urine Urobilinogen Ur Leukocyte Esterase Urine RBC Urine WBC Ur Epithelial Cells Urine Bacteria Hyaline Casts Urine Mucus Opiates Screen Methadone Screen Barbiturate Screen Phencyclidine Screen Ur Amphetamines Screen MDMA (Ecstasy) Screen Benzodiazepines Screen Cocaine Screen U Marijuana (THC) Screen 05/14/17 05/14/17 05/14/17 05:20 05:20 05:20 WBC 6.8 RBC 2.15 L D Hgb 5.6 L* D Hct 17.1 L D MCV 79.4 L MCHC 33.1 RDW 24.4 H Plt Count 246 MPV 9.2 Neutrophils % 69.8 Lymphocytes % 26.4 D Monocytes % 2.3 L Eosinophils % 1.2 D Basophils % 0.3 Nucleated RBCs 6 H Differential Comment Slide scanned Platelet Estimate Adequate Hypochromic-Microcytic 2+ Anisocytosis 3+ Sickle Cell Screen INR 1.51 H PTT (Actin FS) Fibrinogen 247.0 Sodium Potassium Chloride Carbon Dioxide Anion Gap BUN Creatinine Creat Clearance w eGFR Random Glucose Lactic Acid Calcium Phosphorus Magnesium Ferritin Total Bilirubin Cancelled Direct Bilirubin Cancelled AST Cancelled ALT Cancelled Alkaline Phosphatase Cancelled LD Total Cancelled CK-MB (CK-2) Troponin I Total Protein Cancelled Albumin Cancelled Total Amylase Cancelled Vitamin B12 Serum Folate TSH Urine Color Urine Appearance Urine pH Ur Specific [place] Urine Protein Urine Glucose (UA) Urine Ketones Urine Blood Urine Nitrite Urine Bilirubin Urine Urobilinogen Ur Leukocyte Esterase Urine RBC Urine WBC Ur Epithelial Cells Urine Bacteria Hyaline Casts Urine Mucus Opiates Screen Methadone Screen Barbiturate Screen Phencyclidine Screen Ur Amphetamines Screen MDMA (Ecstasy) Screen Benzodiazepines Screen Cocaine Screen U Marijuana (THC) Screen 05/14/17 05/14/17 05/14/17 05:20 05:20 08:25 WBC 6.7 RBC 2.56 L Hgb 6.9 L* D Hct 20.5 L D MCV 80.2 MCHC 33.9 RDW 22.6 H Plt Count 216 MPV 8.7 Neutrophils % Lymphocytes % Monocytes % Eosinophils % Basophils % Nucleated RBCs Differential Comment Platelet Estimate Hypochromic-Microcytic Anisocytosis Sickle Cell Screen INR PTT (Actin FS) Fibrinogen Sodium Potassium Chloride Carbon Dioxide Anion Gap BUN Creatinine Creat Clearance w eGFR Random Glucose Lactic Acid Calcium 7.7 L Phosphorus Magnesium Ferritin Total Bilirubin Direct Bilirubin AST ALT Alkaline Phosphatase LD Total CK-MB (CK-2) Cancelled Troponin I Total Protein Albumin Total Amylase Vitamin B12 Serum Folate TSH Urine Color Urine Appearance Urine pH Ur Specific [place] Urine Protein Urine Glucose (UA) Urine Ketones Urine Blood Urine Nitrite Urine Bilirubin Urine Urobilinogen Ur Leukocyte Esterase Urine RBC Urine WBC Ur Epithelial Cells Urine Bacteria Hyaline Casts Urine Mucus Opiates Screen Methadone Screen Barbiturate Screen Phencyclidine Screen Ur Amphetamines Screen MDMA (Ecstasy) Screen Benzodiazepines Screen Cocaine Screen U Marijuana (THC) Screen 05/14/17 05/14/17 05/14/17 08:25 08:25 11:55 WBC RBC Hgb Hct MCV MCHC RDW Plt Count MPV Neutrophils % Lymphocytes % Monocytes % Eosinophils % Basophils % Nucleated RBCs Differential Comment Platelet Estimate Hypochromic-Microcytic Anisocytosis Sickle Cell Screen INR PTT (Actin FS) Fibrinogen Sodium 139 Potassium 2.6 L* Chloride 95 L Carbon Dioxide 39 H Anion Gap 5 L BUN 6 L Creatinine 0.4 L Creat Clearance w eGFR > 60 Random Glucose 71 L Lactic Acid Calcium 7.5 L Phosphorus Magnesium Ferritin 32.047 Total Bilirubin 1.2 H Direct Bilirubin AST 44 H ALT 22 Alkaline Phosphatase 144 H LD Total 376 H Cancelled CK-MB (CK-2) Troponin I Total Protein 6.4 Albumin 2.6 L Total Amylase Vitamin B12 2907 H Serum Folate 11 D TSH Urine Color Urine Appearance Urine pH Ur Specific [place] Urine Protein Urine Glucose (UA) Urine Ketones Urine Blood Urine Nitrite Urine Bilirubin Urine Urobilinogen Ur Leukocyte Esterase Urine RBC Urine WBC Ur Epithelial Cells Urine Bacteria Hyaline Casts Urine Mucus Opiates Screen Negative Methadone Screen Negative Barbiturate Screen Negative Phencyclidine Screen Negative Ur Amphetamines Screen Negative MDMA (Ecstasy) Screen Negative Benzodiazepines Screen Negative Cocaine Screen Negative U Marijuana (THC) Screen Negative 05/14/17 05/14/17 05/14/17 15:00 15:47 16:25 WBC 7.7 RBC 2.98 L Hgb 8.4 L D Hct 24.2 L D MCV 81.2 MCHC 34.7 RDW 21.2 H Plt Count 238 MPV 9.0 Neutrophils % Lymphocytes % Monocytes % Eosinophils % Basophils % Nucleated RBCs Differential Comment Platelet Estimate Hypochromic-Microcytic Anisocytosis Sickle Cell Screen Negative INR PTT (Actin FS) Fibrinogen Sodium Potassium Chloride Carbon Dioxide Anion Gap BUN Creatinine Creat Clearance w eGFR Random Glucose Lactic Acid Calcium Phosphorus Magnesium Ferritin Total Bilirubin Direct Bilirubin AST ALT Alkaline Phosphatase LD Total CK-MB (CK-2) Troponin I Total Protein Albumin Total Amylase Vitamin B12 Serum Folate TSH 1.15 D Urine Color Urine Appearance Urine pH Ur Specific [place] Urine Protein Urine Glucose (UA) Urine Ketones Urine Blood Urine Nitrite Urine Bilirubin Urine Urobilinogen Ur Leukocyte Esterase Urine RBC Urine WBC Ur Epithelial Cells Urine Bacteria Hyaline Casts Urine Mucus Opiates Screen Methadone Screen Barbiturate Screen Phencyclidine Screen Ur Amphetamines Screen MDMA (Ecstasy) Screen Benzodiazepines Screen Cocaine Screen U Marijuana (THC) Screen Active Medications Generic Name Dose Route Start Last Admin Trade Name Lance PRN Reason Stop Dose Admin Chlorhexidine Gluconate 1 applic 05/13/17 22:00 05/13/17 23:09 Hibiclens For Decolonization - TP 1 applic HS EMILY Administration Pantoprazole Sodium 100 mls @ 200 mls/hr 05/14/17 22:00 Protonix 40mg Ivpb (Pre-Docked) IVPB BID EMILY Potassium Chloride 100 mls @ 100 mls/hr 05/14/17 16:15 05/14/17 16:22 Potassium Chloride 10 Meq Premix Ivpb - IVPB 05/14/17 18:14 100 mls/hr Q60M EMILY Administration Mupirocin 1 applic 05/13/17 22:00 05/14/17 09:56 Bactroban Ointment (For Decolonization) - NS 05/18/17 21:59 1 applic BID EMILY Administration Phytonadione 5 mg 05/14/17 10:00 05/14/17 10:00 Aqua Mephyton Injection - SQ 05/16/17 12:00 5 mg DAILY EMILY Administration CT abdomen/Pelvis: Moderate ascites, Metallic coil is from prior embolization. Hepatic steatosis. Hepatomegaly. A fistulous tract with a hollow viscus cannot be excluded. ASSESSMENT/PLAN: Patient is a 31 year old Female with significant past medical history of anemia (iron deficiency), hemorrhagic ovarian cysts, s/p surgery for perforated gastric ulcer 01/2017 presents to ER with worsening abdominal pain, nausea, and distention over the last 1-2 weeks. # Severe symptomatic anemia likely due to chronic GI loss H/o Perforated gastric ulcers On admission, H/H 2.1/7.1 -----> s/p 4 PRBC, latest Hb-8.4/24.2 FOBT- negative Patient was told by her surgeon several weeks ago to go to the ER for evaluation and treatment of anemia, but patient didn't follow up Iron studies/LUCIAN 2/bcr/,Hematology consult appreciated # Chest pain-likely musculoskeletal vs demand ischemia due to severe anemia Troponins x 2 negative ECHO showed: As compared to 04/03/2016 significant increase in the severity of MR and TR. Left ventricle normal in size. Mild pulmonic valvular regurgitation Cardiology consult requested # Gastric ulcer s/p paulie patch Paulie patch for perforated gastric ulcer in 2015. Past h/o perforated gastric ulcer s/p surgery 01/2017 Guaiac negative. Of note, her INR is 1.5 and B12 is 2900. She denies taking vitamins or monthly vitamin injections. NG tube in place GI consult appreciated who recommends; EGD tomorow, PPI On IV Protonix NPO IR consulted # Less likely Pneumonia Afebrile CT Chest: Atelectasis/Infiltration present at the left base. # Hypokalemia K-2.1 on admission, repleted with Potassium # Lower Extremity edema Likely secondary to cardiac cause # H/o hemorrhagic ovarian cyst TVS: Moderate pelvic ascites, no other acute pathology # FEN Not on IV fluids Electrolytes to be repeated tomorrow NPO # Prophylaxis For DVT: AC contraindicated due to severe anemia For GI; On protonix # Code Status: Full code # Dispo: Admitted in Med-Surg. Duration of stay unknown. Illness, Investigation and Plan of care explained to the patient. She verbalized understanding. Case seen and discussed with Dr. Nunez. Visit type - Emergency Visit Emergency Visit: Yes ED Registration Date: 05/13/17 Care time: The patient presented to the Emergency Department on the above date and was hospitalized for further evaluation of their emergent condition. - New Patient This patient is new to me today: No - Critical Care Critical Care patient: No - Discharge Referral Referred to [facility] Med P.C.: No
[2017-05-14] MEDS ORDERED: ACETAMINOPHEN 325 MG TABLET (FP) PO PRN (18:19)
[2017-05-14] MEDS ORDERED: POTASSIUM CHLORIDE ORAL LIQUID 20 MEQ/15 ML NGT ONE (18:20)
[2017-05-14] MEDS ORDERED: ACETAMINOPHEN 650 MG/20.3 ML ORAL SOLUTION (CUPS) PO PRN (18:23)
[2017-05-14] MEDS ORDERED: POTASSIUM CHLORIDE ORAL LIQUID 20 MEQ/15 ML ONE (18:36)
[2017-05-14] MEDS: POTASSIUM CHLORIDE ORAL LIQUID 20 MEQ/15 ML NGT ONE ×2 (19:01→19:31)
[2017-05-14 21:24] LABS: MCH 27.6 pg (25.7-33.7); MCHC 34.2 g/dl (32.0-36.0); MEAN CELL VOLUME 80.8 fl (80-96); MEAN PLT VOLUME 8.7 fl (7.5-11.1); PLATELET COUNT 269 K/MM3 (134-434); RDW 20.6 % (11.6-15.6); WHITE BLOOD COUNT 8.4 K/mm3 (4.0-10.0)
[2017-05-14 21:49] LABS: ALBUMIN 2.8 g/dl (3.4-5.0); ALK PHOS 154 U/L (45-117); ANION GAP 6 (8-16); BILIRUBIN,TOTAL 1.5 mg/dL (0.2-1.0); CALCIUM 8.3 mg/dL (8.5-10.1); CO2 33 mmol/L (21-32); CREATININE 0.3 mg/dL (0.55-1.02); GLUCOSE,RANDOM 68 mg/dL (74-106); SGOT/AST 48 U/L (15-37); SGPT/ALT 23 U/L (12-78); TOT PROT 6.9 g/dl (6.4-8.2)
[2017-05-14 22:08] LABS: ANISOCYTOSIS 2+; HYPOCHROMIA 1+; MICROCYTOSIS 1+; PLATELET ESTIMATE ADEQUATE (NORMAL); POLYCHROMASIA FEW
[2017-05-14] MEDS: CHLORHEXIDINE GLUCONATE 4% CLEANSER FOR DECOLONIZATION TP SCH (22:25)
--- NOTE | 2017-05-14 22:30 | CON.OBG ---
Consult Consult Specialty:: [employer] Referred by:: Janna Avery Reason for Consultation:: Abdominal pain / Personal h/o hemorrhagic ovarian cyst - History of Present Illness Chief Complaint: Abdominal pain / Edema and pain of lower extremities History of Present Illness: 31 yo Para 1 with h/o Depression, anemia and hemorrhagic ovarian cyst, LMP 01/04, presented to ER due to edema and pain of the lower extremities. Patient had several imaging studies including a pelvic sonogram that failed to show evidence of adnexa mass nor ovarian cyst. Pelvic sonogram was normal beside some pelvic ascites. Patient denies any pelvic pain nor abnormal vaginal bleeding. - History Source History Provided By: Patient Limitations to Obtaining History: Poor Historian - Past Medical History Cardio/Vascular: Yes: HTN Gastrointestinal: Yes: Ascites ...LMP: 01/04/17 ...: No ...Para: 1 Psych: Yes: Depression Additional Medical History: Anemia. Depression not on meds - Past Surgical History Additional Surgical History: Abdominal surgery due to perforated gastric ulcer - Alcohol/Substance Use Hx Alcohol Use: No History of Substance Use: reports: None - Smoking History Smoking history: Current every day smoker Have you smoked in the past 12 months: Yes Aproximately how many cigarettes per day: 10 - Social History ADL: Independent History of Recent Travel: No Home Medications - Allergies Allergies/Adverse Reactions: Allergies Allergy/AdvReac Type Severity Reaction Status Date / Time No Known Drug Allergies Allergy Verified 05/13/17 16:05 - Home Medications Home Medications: Ambulatory Orders Amox-Tr/K Cl [Augmentin 875-125mg Tablet -] 1 tab PO BID #4 tablet 01/29/17 Ferrous Sulfate [Feosol] 325 mg PO BID #60 01/29/17 Miscellaneous Drug Not In Syst [Outpatient Lab Test] 1 each ASDIR #1 misc Oxycodone HCl/Acetaminophen [Percocet 5-325 mg Tablet] 1 tab PO Q8H #10 tablet MDD 3 tab 01/29/17 Pantoprazole Sodium [Protonix -] 40 mg PO DAILY #30 tablet.ec 01/29/17 Family Disease History - Family Disease History Family History: Unremarkable Family Disease History: Other: Mother (anemia) Review of Systems - Review of Systems Constitutional: reports: Weakness Eyes: reports: No Symptoms Neck: reports: No Symptoms Cardiovascular: denies: Chest Pain Respiratory: reports: SOB on Exertion. denies: Cough, Hemoptysis, Orthopnea, Snoring, Wheezing Gastrointestinal: reports: Abdominal Pain Genitourinary: denies: Vaginal Bleeding Breasts: reports: No Symptoms Reported Musculoskeletal: reports: Extremity Pain Neurological: reports: Weakness Psychiatric: reports: Depression Pain Intensity: 3 Physical Exam-[employer] Vital Signs: Vital Signs Temperature 98 F 05/14/17 18:00 Pulse Rate 93 H 05/14/17 18:00 Respiratory Rate 20 05/14/17 18:00 Blood Pressure 136/93 05/14/17 18:00 O2 Sat by Pulse Oximetry (%) 98 05/14/17 17:57 Constitutional: Yes: Calm, Mild Distress HENT: Yes: Atraumatic Neck: Yes: Supple Gastrointestinal: Yes: Normal Bowel Sounds, Other ( Mild epigastric pain). No: Palpable Mass, Pulsatile Mass Vaginal Exam: Yes: Normal. No: Bleeding, Discharge Cervix: Yes: Normal Uterus: Yes: Normal Neurological: Yes: Alert, Oriented Psychiatric: Yes: Oriented Labs: CBC, BMP 05/14/17 20:40 05/14/17 20:40 Problem List - Problems (1) Edema of lower extremity Code(s): R60.0 - LOCALIZED EDEMA (2) Pelvic ascites Code(s): R18.8 - OTHER ASCITES Assessment/Plan Pelvic ascites R/O Ovarian malignancy Anemia Personal h/o Depression Edema of lower extremitities F/U ovarian tumor markers
[2017-05-15] MEDS ORDERED: BENZOCAINE/MENTH/CETYLPYRD CL 1 EACH LOZENGE MM PRN ×2 (05:52→21:01)
[2017-05-15] MEDS ORDERED: LORAZEPAM CARPU-JECT 2 MG/ML DISP.SYRIN IVPUSH ONE (05:52)
[2017-05-15 06:11] LABS: HAPTOGLOBIN 176 mg/dL (34-200); SERUM IRON 254 ug/dL (27-159); TOTAL IRON BINDING CAPACITY 291 ug/dL (250-450); TRANSFERRIN 243 mg/dL (200-370); UIBC 37 ug/dL (131-425)
[2017-05-15 06:11] LABS: HEP B SURFACE AB Reactive (.)
[2017-05-15] MEDS ORDERED: ALBUTEROL SO4 0.083% IH SOL 2.5 MG/3 ML VIAL.NEB. NEB ONE (06:26)
[2017-05-15 06:40] LABS: ALLENS TEST POSITIVE; ART PUNCT SITE RIGHT RADIAL; ARTERIAL BLOOD GAS BASE EXCESS 3.7 meq/l (-2-2); ARTERIAL BLOOD GAS HCO3 27.3 meq/L (22-26); ARTERIAL BLOOD GAS PO2 48.5 mmHg (80-100); ARTERIAL BLOOD GAS pH 7.46 (7.35-7.45); LPM/O2% 6L; PT. ON O2? YES; TYPE OF O2 AEROSOL TX
[2017-05-15] MEDS ORDERED: FUROSEMIDE 40 MG/4 ML INJECTABLE VIAL IVPUSH ONE ×2 (06:42→15:27)
--- NOTE | 2017-05-15 06:43 | HOSP ---
Subjective - Review of Symptoms Events since last encounter: called to evaluate for patient having a "panic attack" Patient is a 31 year old Female with significant past medical history of anemia (iron deficiency), hemorrhagic ovarian cysts, s/p surgery for perforated gastric ulcer 01/2017 presents to ER with worsening abdominal pain, nausea, and distention over the last 1-2 weeks. General: No: Chills, Night Sweats, Fatigue HEENT: No: Head Aches, Visual Changes Cardiovascular: No: Chest Pain, Palpitations, Orthopnea Gastrointestinal: No: Nausea, Vomiting Genitourinary: No: Dysuria, Frequency Musculoskeletal: No: Back Pain Neurological: No: Weakness, Numbness Physical Examination Vital Signs: Vital Signs Temperature 97.4 F L 05/15/17 02:00 Pulse Rate 102 H 05/15/17 04:00 Respiratory Rate 18 05/15/17 04:00 Blood Pressure 135/102 05/15/17 04:00 O2 Sat by Pulse Oximetry (%) 98 05/14/17 22:00 Findings/Remarks: very anxious and short of breath , yelling "whats wrong with me" Constitutional: Yes: Anxious, Moderate Distress Eyes: Yes: Conjunctiva Clear, EOM Intact HENT: Yes: Atraumatic, Normocephalic Cardiovascular: Yes: Regular Rate and Rhythm, Tachycardia, Murmur, S1, S2 Respiratory: Yes: Cough, On Nasal O2, SOB on Exertion Gastrointestinal: Yes: Normal Bowel Sounds, Soft Musculoskeletal: Yes: WNL Edema: Yes Edema: LLE: 2+, RLE: 2+ Peripheral Pulses: Left Radial: 2+, Right Radial: 2+ Neurological: Yes: Alert, Oriented Psychiatric: Yes: Alert, Oriented, Agitated Labs: CBC, BMP 05/14/17 20:40 05/14/17 20:40 Hospitalist Encounter Assessment: Patient is a 31 year old Female with significant past medical history of anemia (iron deficiency), hemorrhagic ovarian cysts, s/p surgery for perforated gastric ulcer 01/2017 presents to ER with worsening abdominal pain, nausea, and distention over the last 1-2 weeks. Admitted for severe symptomatic anemia. Pulmonary edema secondary to severe mitral stenosis; -s/p 5 U PRBC; with adequate rise in hemoglobin -ECHO showing severe mitral regurg -stat lasix 40mg IVPUSH -nitro drip starting at 10mcs -stat CXR -pulse ox; NC Visit type - Emergency Visit Emergency Visit: Yes ED Registration Date: 05/13/17 Care time: The patient presented to the Emergency Department on the above date and was hospitalized for further evaluation of their emergent condition. - New Patient This patient is new to me today: Yes Date on this admission: 05/15/17 - Critical Care Critical Care patient: Yes Total Critical Care Time (in minutes): 35 Critical Care Statement: The care of this patient involved high complexity decision making to prevent further life threatening deterioration of the patient 's condition and/or to evalute & treat vital organ system(s) failure or risk of failure.
[2017-05-15] MEDS ORDERED: NITROGLYCERIN 25MG/D5W 250ML 250 ML IVPB ONE (06:44)
[2017-05-15] MEDS ORDERED: METOPROLOL TARTRATE 5 MG/5 ML VIAL IVPUSH ONE (06:46)
[2017-05-15 06:58] LABS: MCH 27.7 pg (25.7-33.7); MCHC 34.4 g/dl (32.0-36.0); MEAN CELL VOLUME 80.4 fl (80-96); MEAN PLT VOLUME 8.8 fl (7.5-11.1); PLATELET COUNT 293 K/MM3 (134-434); RDW 20.7 % (11.6-15.6); WHITE BLOOD COUNT 9.9 K/mm3 (4.0-10.0)
[2017-05-15] MEDS ORDERED: NITROGLYCERIN 25MG/D5W 250ML 250 ML IVPB SCH (07:00)
--- NOTE | 2017-05-15 07:00 | PN ---
Progress Note (short form) - Note Progress Note: Chief Complaint: Events noted, notes reviewed, acute respiratory distress with hypoxia and sinus tachycardia History of Present Illness: Seen and examined in the ICU. Full consult dictated Echocardiography dated 05/14/2017 revealed normal LV size and function with severe MR and TR with moderate degree of pulmonary HTN, no MVP or flail leaflet so etiology of valvular pathology is unclear Medications: Current Medications Benzocaine/Menthol (Cepacol Lozenge -) 1 each MM PRN PRN PRN Reason: SORE THROAT Chlorhexidine Gluconate (Hibiclens For Decolonization -) 1 applic TP HS [facility] Last Admin: 05/14/17 22:25 Dose: 1 applic Pantoprazole Sodium (Protonix 40mg Ivpb (Pre-Docked)) 100 mls @ 200 mls/hr IVPB BID [facility] Last Admin: 05/14/17 22:23 Dose: 200 mls/hr Mupirocin (Bactroban Ointment (For Decolonization) -) 1 applic NS BID [facility] Stop: 05/18/17 21:59 Last Admin: 05/14/17 22:22 Dose: 1 applic Phytonadione (Aqua Mephyton Injection -) 5 mg SQ DAILY [facility] Stop: 05/16/17 12:00 Last Admin: 05/14/17 10:00 Dose: 5 mg Review of Systems Cardiovascular: As noted above Respiratory: denies: Cough or Sputum Production Gastrointestinal: denies: Nausea, Vomiting, Diarrhea, Constipation or Abdominal Discomfort Musculoskeletal: No Symptoms Reported Endocrine: No Symptoms Reported Vital Signs: Last Vital Signs Temp Pulse Resp BP Pulse Ox 97.4 F L 102 H 18 135/102 98 05/15/17 02:00 05/15/17 04:00 05/15/17 04:00 05/15/17 04:00 05/14/17 22:00 Constitutional: Acute Distress, Anxious Neck: Supple Positive JVD Respiratory: Diminished at the Bases Bilaterally Cardiovascular: S1 S2 Regular Rate and Rhythm Tacycardiac S3 Grade 1-2/6 SM Apical Gastrointestinal: Soft Benign Normal Bowel Sounds Ext: Positive Edema Labs: CBC, BMP 05/15/17 05:20 Troponin, BNP 05/14/17 05:20 Troponin I 0.02 Hepatic Panel Total Bilirubin 1.5 mg/dL (0.2-1.0) H 05/14/17 20:40 Direct Bilirubin 0.5 mg/dL (0.0-0.2) H 05/14/17 05:20 AST 48 U/L (15-37) H 05/14/17 20:40 ALT 23 U/L (12-78) 05/14/17 20:40 Alkaline Phosphatase 154 U/L (45-117) H 05/14/17 20:40 Albumin 2.8 g/dl (3.4-5.0) L 05/14/17 20:40 Assessment/Plan ASSESSMENT: 1. Acute pulmonary edema related to acute diastolic LV failure related to valvular pathology MR exacerbated by HTN 2. Hypertension, hypertensive cardiovascular disease 3. MR, severe in severity etiology of which to be determined, no evidence of MVP or flail leaflets, possible collagen vascular disease or endocarditis 4. TR, severe in severity with moderate degree of pulmonary HTN, RVSP of 52 mmHg 5. Anemia, post transfusion, etiology to be determined 6. Post recent perforated gastric ulcer post Paulie patch repair PLAN: 1. After load reduction with IV nitro 2. B-Blockers IV and PO 3. ACEI IV and PO 4. Diuretics, IV Lasix 5. Evaluation of possible collagen vascular disease 6. Blood cultures 7. Monitor Hg and maintain equal or greater than 8.0 Jazmin Matthews M.D.
[2017-05-15 07:06] LABS: INR 1.46 (0.82-1.09); PROTHROMBIN TIME (PATIENT) 16.2 SEC (9.98-11.88)
[2017-05-15] MEDS ORDERED: ENALAPRILAT DIHYDRATE 2.5 MG/2 ML VIAL IVPB ONE ×2 (07:39→10:02)
[2017-05-15 07:49] LABS: ALBUMIN 2.8 g/dl (3.4-5.0); ALK PHOS 174 U/L (45-117); ANION GAP 13 (8-16); BILIRUBIN,TOTAL 1.6 mg/dL (0.2-1.0); CALCIUM 7.9 mg/dL (8.5-10.1); CO2 27 mmol/L (21-32); CREATININE 0.3 mg/dL (0.55-1.02); GLUCOSE,RANDOM 63 mg/dL (74-106); SGOT/AST 51 U/L (15-37); SGPT/ALT 27 U/L (12-78); TOT PROT 7.2 g/dl (6.4-8.2)
[2017-05-15 08:37] LABS: C-REACTIVE PROTEIN 10.4 MG/DL (0.00-0.3)
[2017-05-15] MEDS: KCL 10 MEQ IVPB 100 ML IVPB SCH ×2 (09:30→10:38)
[2017-05-15] MEDS: PHYTONADIONE 10 MG/1 ML AMP SQ SCH (09:49)
[2017-05-15] MEDS: MUPIROCIN 2% TOPICAL OINTMENT FOR DECOLONIZATION NS SCH ×2 (09:58→21:35)
[2017-05-15] MEDS: PANTOPRAZOLE SODIUM 100 ML IVPB SCH ×2 (09:59→21:34)
[2017-05-15] MEDS ORDERED: METOPROLOL TARTRATE 25 MG TABLET (FP) PO SCH (10:00)
[2017-05-15] MEDS ORDERED: ENALAPRIL MALEATE 5 MG TABLET (FP) PO SCH (10:00)
--- NOTE | 2017-05-15 10:16 | CONS ---
DATE OF CONSULTATION: 05/15/2017 REQUESTING PHYSICIAN: Hospitalist. CHIEF COMPLAINT: Evaluation of acute dyspnea and tachycardia. HISTORY OF PRESENT ILLNESS: This is a 31-year-old female of -[place] descent with known history perforated gastric ulcer postoperative repair, chronic anemia, clinical depression, who presented to [facility] with progressive weakness and was noted to have evidence of profound anemia requiring transfusion. Patient had echocardiography performed yesterday which revealed normal left ventricular systolic function, severe mitral and tricuspid valve regurgitation with moderate degree of pulmonary hypertension, RVSP of 52 mmHg. Patient received 5 units of packed RBC, and this a.m., patient was noted to be in acute respiratory distress complaining of dyspnea, and in addition, she was noted to have sinus tachycardia. Patient denied any chest discomfort. Patient reported orthopnea. No reported paroxysmal nocturnal dyspnea. Patient denied any palpitation, dizziness, lightheadedness, or syncope by history. Patient has been reporting fatigue and tiredness. Upon evaluation, patient was noted to have evidence of acute pulmonary edema related to volume overload, and in addition, patient was noted to have evidence of elevated blood pressure, specifically diastolic blood pressure elevation. PAST MEDICAL HISTORY: Perforated peptic ulcer disease, post-surgical intervention. SOCIAL HISTORY: No history of smoking. FAMILY HISTORY: No history of coronary artery disease. ALLERGIES: None reported. MEDICATIONS: Medical therapy at home none. REVIEW OF SYSTEMS: Head and neck: Denies headache, photophobia, blurring of vision. Respiratory: No cough or sputum production. Cardiovascular: As noted above. Gastrointestinal: Denies nausea, vomiting, diarrhea, abdominal discomfort. Genitourinary: No symptoms reported. PHYSICAL EXAMINATION: Vital signs: Blood pressure is 135/102 mmHg, pulse rate is 102 beats per minute. Head and neck: Pupils equally reactive to light and accommodation. Extraocular muscles are intact. Anicteric sclerae. Positive JVD. No bruit appreciated. Chest: Diminished breath at the bases. Cardiovascular: S1, S2 regular, tachycardic, S3, grade 1-2/6 systolic murmur. Abdomen: Soft, benign. Normoactive bowel sounds. Extremities: 1+ edema bilaterally. Intact distal pulses. No calf tenderness. STUDIES: Echocardiography performed yesterday revealed normal left ventricular size with severe mitral and tricuspid valve regurgitation. Mild left atrial dilatation, mild right atrial dilatation with RVSP of 52 mmHg. Chest x-ray from this a.m. was noted. EKG revealed sinus rhythm with ST- and T-wave abnormalities suggestive of ischemia with prolonged QTc. CBC revealed a white cell count of 9.9, hemoglobin 10.5, platelet count 293. Basic metabolic profile is pending, this from this a.m. Last night, basic metabolic profile revealed a sodium of 136, potassium 4.0, BUN 4, creatinine 0.3, glucose 68. ASSESSMENT: 1. Acute pulmonary edema related to acute diastolic left ventricular failure related to valvular pathology. Mitral regurgitation exacerbated by hypertension. 2. Hypertension, hypertensive cardiovascular disease, not at goal. 3. Mitral valve disease, mitral valve regurgitation severe in severity, etiology of which is to be determined. No evidence of mitral valve prolapse or flail leaflet. Possible collagen vascular disease or endocarditis. 4. Tricuspid valve regurgitation severe in severity with moderate degree of pulmonary hypertension, right ventricular systolic pressure of 52 mmHg. 5. Anemia post transfusion, etiology to be determined. 6. History of recent perforated gastric ulcer post Paulie patch repair surgery. RECOMMENDATIONS: 1. After load reduction with IV nitrates. 2. Beta-blockers intravenously and subsequently orally. 3. ZAYDA inhibitors intravenously and subsequently orally. 4. Diuretics, IV Lasix. 5. Evaluation of possible collagen vascular disease. 6. Recommend obtaining blood cultures. 7. Monitor hemoglobin and maintain equal or greater than 8.0. CONDITION: Critical. Thank you for the kind referral. FÉLIX BARNHART M.D. [id number]
--- NOTE | 2017-05-15 11:11 | PN ---
Teaching Attending Note Name of Resident: Blanca Sanchez ATTENDING PHYSICIAN STATEMENT I saw and evaluated the patient. I reviewed the resident's note and discussed the case with the resident. I agree with the resident's findings and plan as documented. SUBJECTIVE: Pt seen and examined in the ICU. Blood counts stable s/p PRBC transfusions. Echocardiogram showing severe mitral/tricuspid regurgitation. Started on nitro gtt overnight due to shortness of breath. OBJECTIVE: Last Vital Signs Temp Pulse Resp BP Pulse Ox 99.4 F 100 H 30 H 124/88 97 05/15/17 10:00 05/15/17 11:00 05/15/17 11:00 05/15/17 11:00 05/15/17 10:15 Intake & Output 05/12/17 05/13/17 05/14/17 05/15/17 23:59 23:59 23:59 23:59 Intake Total 4897 112 Output Total 550 3900 4750 Balance -550 997 -4649 Weight 109 lb 6 oz 116 lb 2 oz 104 lb 9 oz Gen: mildly tachypneic at rest Heart: tachycardic, regular Lung: decreased breath sounds at the bases Abd: soft, nontender Ext: + edema CBC, BMP 05/15/17 05:20 05/15/17 05:20 CXR: bilateral effusions Active Medications Benzocaine/Menthol (Cepacol Lozenge -) 1 each MM PRN PRN PRN Reason: SORE THROAT Chlorhexidine Gluconate (Hibiclens For Decolonization -) 1 applic TP HS [facility] Last Admin: 05/14/17 22:25 Dose: 1 applic Enalapril Maleate (Vasotec -) 5 mg PO BID [facility] Last Admin: 05/15/17 09:59 Dose: 5 mg Pantoprazole Sodium (Protonix 40mg Ivpb (Pre-Docked)) 100 mls @ 200 mls/hr IVPB BID [facility] Last Admin: 05/15/17 09:59 Dose: 200 mls/hr Nitroglycerin/Dextrose (Nitroglycerin 25mg/D5w 250ml) 250 mls @ 6 mls/hr IVPB TITR [facility] PRN Reason: 10 MCG/MIN Last Titration: 05/15/17 07:40 Dose: 40 mcg/min Potassium Chloride (Potassium Chloride 10 Meq Premix Ivpb -) 100 mls @ 100 mls/ hr IVPB Q60M [facility] Stop: 05/15/17 11:29 Last Admin: 05/15/17 10:38 Dose: 100 mls/hr Metoprolol Tartrate (Lopressor -) 25 mg PO BID [facility] Last Admin: 05/15/17 09:59 Dose: 25 mg Mupirocin (Bactroban Ointment (For Decolonization) -) 1 applic NS BID [facility] Stop: 05/18/17 21:59 Last Admin: 05/15/17 09:58 Dose: 1 applic Phytonadione (Aqua Mephyton Injection -) 5 mg SQ DAILY [facility] Stop: 05/16/17 12:00 Last Admin: 05/15/17 09:49 Dose: 5 mg ASSESSMENT AND PLAN: Severe Anemia s/p PRBC transfusions Acute Diastolic Heart Failure Severe Mitral/Tricuspid Regurgitation Recent Perforated Duodenal Ulcer repair Hypokalemia - monitor H/H - transfuse as needed - IV lasix - monitor urine output, creatinine - keep net negative fluid balance - ZAYDA-I for afterload reduction - can taper off nitro gtt - replete lytes - O2 to keep SpO2 >90% - DVT prophylaxis - can monitor on telemetry
--- NOTE | 2017-05-15 14:05 | PN ---
GI Progress Note Subjective: chart reviewd, s/p repair of perforated pyloric channel ulcer 01/2017 Dr Robin , admitted with abdominal pain, nausea,vomiting and progressive weakness the past [address] revealed pneumobila and ascitis. The etiology is unclear. The past 2 days she became asymptomatic. NGT yellowish bile and is hungry - Objective Vital Signs: Vital Signs Temperature 99.1 F 05/15/17 13:02 Pulse Rate 96 H 05/15/17 13:02 Respiratory Rate 28 H 05/15/17 13:02 Blood Pressure 126/92 05/15/17 13:02 O2 Sat by Pulse Oximetry (%) 100 05/15/17 12:03 Constitutional: Well Nourished Eyes: Yes: Conjunctiva Clear HENT: Yes: Atraumatic Neck: Yes: Supple Cardiovascular: Yes: Regular Rate and Rhythm Respiratory: Yes: CTA Bilaterally ...Palpate: Yes: Soft. No: Firm/Rigid, Guarding, Hepatomegaly, Mass, Pulsatile Mass, Splenomegaly, Tenderness Labs: CBC, BMP 05/15/17 05:20 05/15/17 05:20 INR, PTT INR 1.46 (0.82-1.09) H 05/15/17 06:00 Fibrinogen 247.0 mg/dL (238-498) 05/14/17 05:20 Problem List - Problems (1) Anemia Assessment/Plan: stool guaic negative R> iron TIBC, ferritin Hematology consult D/C NGT advance diet as tolerated EGD once clinically improved, pt is on IV Nitro Code(s): D64.9 - ANEMIA, UNSPECIFIED Qualifiers: Anemia type: unspecified type (2) Pneumobilia Assessment/Plan: etiology unclear Code(s): K83.8 - OTHER SPECIFIED DISEASES OF BILIARY TRACT
--- NOTE | 2017-05-15 14:40 | PN ---
Physical Exam: SUBJECTIVE: Patient seen and examined. This morning the pt was complaining of SOB, she was put on venti mask, changed to 4 L on NC. She denies abdominal pain , chest pain, fever. OBJECTIVE: Vital Signs Period Temp Pulse Resp BP Sys/Suárez Pulse Ox Last 24 Hr 97.4 F-99.4 F 89-122 17-35 124-173/88-118 97-100 GENERAL: The patient is awake, alert, and fully oriented, in moderate distress, on NC and NGT. HEAD: Normal with no signs of trauma. EYES: extraocular movements intact, sclera anicteric, conjunctiva pale. ENT: oropharynx clear without exudates, moist mucous membranes. NECK: Trachea midline, full range of motion, supple. LUNGS: Breath sounds equal, clear to auscultation bilaterally, no wheezes, no crackles, no accessory muscle use. HEART: Regular rate and rhythm, S1, S2 without murmur, rub or gallop. ABDOMEN: Soft, nontender, nondistended, normoactive bowel sounds, no guarding, no rebound, no hepatosplenomegaly, no masses. EXTREMITIES: warm, 1+ edema. NEUROLOGICAL: Normal speech, no facial asymmetry, motor 4/5 in all extremities, sensation intact, gait not observed. PSYCH: Normal mood. SKIN: Warm, dry, normal turgor. Laboratory Results - last 24 hr 05/14/17 05/14/17 05/14/17 05:20 05:20 12:30 WBC RBC Hgb Hct MCV MCHC RDW Plt Count MPV Platelet Estimate Platelet Comment Polychromasia Hypochromic-Microcytic Anisocytosis Microcytosis ESR Sickle Cell Screen Haptoglobin 176 INR Puncture Site ABG pH ABG pCO2 at Pt Temp ABG pO2 at Pt Temp ABG HCO3 ABG O2 Sat (Measured) ABG O2 Content ABG Base Excess Soto Test O2 Delivery Device Oxygen Flow Rate PEEP Sodium Potassium Chloride Carbon Dioxide Anion Gap BUN Creatinine Creat Clearance w eGFR Random Glucose Calcium Iron 191 H 254 H TIBC 291 Iron Saturation 87 H Transferrin 243 Total Bilirubin AST ALT Alkaline Phosphatase LD Total C-Reactive Protein Total Protein Albumin Jvbhb-3-Vuuhmtclc (%) Unudj-0-Zavvbftfj (%) Beta Globulins (%) Gamma Globulins (%) M-Garfield % CA 125 Antigen 42.0 H TSH Free T4 Rheumatoid Factor Ref Test Comments Direct Antiglob Test 05/14/17 05/14/17 05/14/17 15:00 15:00 15:47 WBC 7.7 RBC 2.98 L Hgb 8.4 L D Hct 24.2 L D MCV 81.2 MCHC 34.7 RDW 21.2 H Plt Count 238 MPV 9.0 Platelet Estimate Platelet Comment Polychromasia Hypochromic-Microcytic Anisocytosis Microcytosis ESR Sickle Cell Screen Haptoglobin INR Puncture Site ABG pH ABG pCO2 at Pt Temp ABG pO2 at Pt Temp ABG HCO3 ABG O2 Sat (Measured) ABG O2 Content ABG Base Excess Soto Test O2 Delivery Device Oxygen Flow Rate PEEP Sodium 137 Potassium 2.8 L* Chloride 95 L Carbon Dioxide 35 H Anion Gap 7 L BUN 5 L Creatinine 0.3 L D Creat Clearance w eGFR > 60 Random Glucose 68 L Calcium 7.8 L Iron TIBC Iron Saturation Transferrin Total Bilirubin 1.5 H D AST 46 H ALT 22 Alkaline Phosphatase 153 H LD Total C-Reactive Protein Total Protein 6.7 Albumin 2.7 L Sehhn-5-Cfbrohvqp (%) Szqao-0-Hmkvwvooc (%) Beta Globulins (%) Gamma Globulins (%) M-Garfield % CA 125 Antigen TSH 1.15 D Free T4 Rheumatoid Factor Ref Test Comments Direct Antiglob Test 05/14/17 05/14/17 05/14/17 16:25 20:40 20:40 WBC 8.4 RBC 3.32 L Hgb 9.2 L Hct 26.8 L MCV 80.8 MCHC 34.2 RDW 20.6 H Plt Count 269 MPV 8.7 Platelet Estimate Adequate Platelet Comment No clumping noted Polychromasia Few Hypochromic-Microcytic 1+ Anisocytosis 2+ Microcytosis 1+ ESR Sickle Cell Screen Negative Haptoglobin INR Puncture Site ABG pH ABG pCO2 at Pt Temp ABG pO2 at Pt Temp ABG HCO3 ABG O2 Sat (Measured) ABG O2 Content ABG Base Excess Soto Test O2 Delivery Device Oxygen Flow Rate PEEP Sodium 136 Potassium 4.0 D Chloride 97 L Carbon Dioxide 33 H Anion Gap 6 L BUN 4 L Creatinine 0.3 L Creat Clearance w eGFR > 60 Random Glucose 68 L Calcium 8.3 L Iron TIBC Iron Saturation Transferrin Total Bilirubin 1.5 H AST 48 H ALT 23 Alkaline Phosphatase 154 H LD Total C-Reactive Protein Total Protein 6.9 Albumin 2.8 L Ymzvw-7-Rfddvbqbu (%) Yejoj-2-Pbuublrsf (%) Beta Globulins (%) Gamma Globulins (%) M-Garfield % CA 125 Antigen TSH Free T4 Rheumatoid Factor Ref Test Comments Direct Antiglob Test 05/14/17 05/15/17 05/15/17 20:40 05:20 05:20 WBC RBC Hgb Hct MCV MCHC RDW Plt Count MPV Platelet Estimate Platelet Comment Polychromasia Hypochromic-Microcytic Anisocytosis Microcytosis ESR Sickle Cell Screen Haptoglobin INR Puncture Site ABG pH ABG pCO2 at Pt Temp ABG pO2 at Pt Temp ABG HCO3 ABG O2 Sat (Measured) ABG O2 Content ABG Base Excess Soto Test O2 Delivery Device Oxygen Flow Rate PEEP Sodium Potassium Chloride Carbon Dioxide Anion Gap BUN Creatinine Creat Clearance w eGFR Random Glucose Calcium Iron TIBC Iron Saturation Transferrin Total Bilirubin AST ALT Alkaline Phosphatase LD Total 481 H D C-Reactive Protein 10.4 H Total Protein Albumin Narza-1-Aixagpnej (%) Dtthz-0-Iymuhqpyn (%) Beta Globulins (%) Gamma Globulins (%) M-Garfield % CA 125 Antigen TSH Free T4 1.24 Rheumatoid Factor Ref Test Comments Direct Antiglob Test Negative 05/15/17 05/15/17 05/15/17 05:20 05:20 05:20 WBC RBC Hgb Hct MCV MCHC RDW Plt Count MPV Platelet Estimate Platelet Comment Polychromasia Hypochromic-Microcytic Anisocytosis Microcytosis ESR 42 H Sickle Cell Screen Haptoglobin INR Puncture Site ABG pH ABG pCO2 at Pt Temp ABG pO2 at Pt Temp ABG HCO3 ABG O2 Sat (Measured) ABG O2 Content ABG Base Excess Soto Test O2 Delivery Device Oxygen Flow Rate PEEP Sodium Potassium Chloride Carbon Dioxide Anion Gap BUN Creatinine Creat Clearance w eGFR Random Glucose Calcium Iron TIBC Iron Saturation Transferrin Total Bilirubin AST ALT Alkaline Phosphatase LD Total C-Reactive Protein Cancelled Total Protein Albumin Alimi-3-Mjdupcmvg (%) Cancelled Eohqc-2-Umkngcsxw (%) Cancelled Beta Globulins (%) Cancelled Gamma Globulins (%) Cancelled M-Garfield % Cancelled CA 125 Antigen TSH Free T4 Rheumatoid Factor Ref Test Comments Cancelled Direct Antiglob Test 05/15/17 05/15/17 05/15/17 05:20 05:20 06:00 WBC 9.9 RBC 3.79 Hgb 10.5 L D Hct 30.4 L MCV 80.4 MCHC 34.4 RDW 20.7 H Plt Count 293 MPV 8.8 Platelet Estimate Platelet Comment Polychromasia Hypochromic-Microcytic Anisocytosis Microcytosis ESR Sickle Cell Screen Haptoglobin INR 1.46 H Puncture Site ABG pH ABG pCO2 at Pt Temp ABG pO2 at Pt Temp ABG HCO3 ABG O2 Sat (Measured) ABG O2 Content ABG Base Excess Soto Test O2 Delivery Device Oxygen Flow Rate PEEP Sodium 137 Potassium 3.2 L Chloride 97 L Carbon Dioxide 27 Anion Gap 13 BUN 3 L D Creatinine 0.3 L Creat Clearance w eGFR > 60 Random Glucose 63 L Calcium 7.9 L Iron TIBC Iron Saturation Transferrin Total Bilirubin 1.6 H AST 51 H ALT 27 Alkaline Phosphatase 174 H LD Total C-Reactive Protein Total Protein 7.2 Albumin 2.8 L Yyngh-4-Tiffrzpiq (%) Khnqq-9-Rqwsggcch (%) Beta Globulins (%) Gamma Globulins (%) M-Garfield % CA 125 Antigen TSH Free T4 Rheumatoid Factor 23.5 H Ref Test Comments Direct Antiglob Test 05/15/17 06:36 WBC RBC Hgb Hct MCV MCHC RDW Plt Count MPV Platelet Estimate Platelet Comment Polychromasia Hypochromic-Microcytic Anisocytosis Microcytosis ESR Sickle Cell Screen Haptoglobin INR Puncture Site Right radial ABG pH 7.46 H ABG pCO2 at Pt Temp 38.9 ABG pO2 at Pt Temp 48.5 L* D ABG HCO3 27.3 H ABG O2 Sat (Measured) 85.0 L ABG O2 Content 13.5 L ABG Base Excess 3.7 H Soto Test Positive O2 Delivery Device Aerosol tx Oxygen Flow Rate 6l PEEP 0.0 Sodium Potassium Chloride Carbon Dioxide Anion Gap BUN Creatinine Creat Clearance w eGFR Random Glucose Calcium Iron TIBC Iron Saturation Transferrin Total Bilirubin AST ALT Alkaline Phosphatase LD Total C-Reactive Protein Total Protein Albumin Itmaz-0-Amaxzvnhb (%) Cepoe-5-Imxhjtrhk (%) Beta Globulins (%) Gamma Globulins (%) M-Garfield % CA 125 Antigen TSH Free T4 Rheumatoid Factor Ref Test Comments Direct Antiglob Test Active Medications Generic Name Dose Route Start Last Admin Trade Name Freq PRN Reason Stop Dose Admin Benzocaine/Menthol 1 each 05/15/17 05:52 Cepacol Lozenge - MM PRN PRN SORE THROAT Chlorhexidine Gluconate 1 applic 05/13/17 22:00 05/14/17 22:25 Hibiclens For Decolonization - TP 1 applic HS EMILY Administration Enalapril Maleate 5 mg 05/15/17 10:00 05/15/17 09:59 Vasotec - PO 5 mg BID EMILY Administration Pantoprazole Sodium 100 mls @ 200 mls/hr 05/14/17 22:00 05/15/17 09:59 Protonix 40mg Ivpb (Pre-Docked) IVPB 200 mls/hr BID EMILY Administration Nitroglycerin/Dextrose 250 mls @ 6 mls/hr 05/15/17 07:00 05/15/17 11:46 Nitroglycerin 25mg/D5w 250ml IVPB 30 mcg/min TITR EMILY Titration 10 MCG/MIN Metoprolol Tartrate 25 mg 05/15/17 10:00 05/15/17 09:59 Lopressor - PO 25 mg BID EMILY Administration Mupirocin 1 applic 05/13/17 22:00 05/15/17 09:58 Bactroban Ointment (For Decolonization) - NS 05/18/17 21:59 1 applic BID EMILY Administration Phytonadione 5 mg 05/14/17 10:00 05/15/17 09:49 Aqua Mephyton Injection - SQ 05/16/17 12:00 5 mg DAILY EMILY Administration CT abdomen pelvis: moderate ascites, hepatomegaly with hepatic steatosis, pneumobilia, fistula can not be excluded CXR: bilateral pleural effusions ASSESSMENT/PLAN: 31 y/o F w/PMH of anemia (iron deficiency), hemorrhagic ovarian cysts, s/p surgery for perforated gastric ulcer 01/2017 presents to ER with worsening abdominal pain, nausea, and distention over the last 1-2 weeks. Admitted for symptomatic severe anemia w/Hgb of 2.1, lactic acidosis of 6.8, and abdominal pain. Severe normocytic anemia most likely chronic blood loss Hgb improved to 10.5, goal hgb >8; FOBT neg, no bleeding in NGT vit K 5 mg SQ given for elevated INR haptoglobin pending TSH WNL Hypokalemia: cont potassium chloride 10meq x 2 today will monitor hx of hemorrhagic ovarian cysts - transvaginal U/S ordered, shows moderated ascites OBGYN consulted, tumor markers ordered, CA 125 elevate hx of perforated gastric ulcer s/p surgery started on clear liquid diet and NGT Surgery consulted, no intervention recommended now GI consulted cont Protonix IV, IR consulted Hematology consulted f/u CBC coags, b12, folate, ferritin, TIBC, B12 elevated, ESR elevated Chest pain and dyspnea w/exertion likely secondary to anemia trops neg x2 f/u echo: severe mitral and tricuspid regurgitation, RV systolic pressure elevated, moderate pulmonary hypertension, increased severity from study in 04/05. cardiology consulted, pt had diffuse effusions on CXR, started bb, ACEI, lasix, NC 4L started on nitroglycerin drip, will titrate down today LE edema possibly due to low output failure from anemia Duplex U/S -no acute pathology, no DVT DVT ppx SCDs -FEN no monitor K clear Dispo transfer to telemetry later today Problem List - Problems (1) Hypokalemia Code(s): E87.6 - HYPOKALEMIA (2) Anemia Code(s): D64.9 - ANEMIA, UNSPECIFIED Qualifiers: Anemia type: unspecified type Qualified Code(s): D64.9 - Anemia, unspecified (3) Abdominal pain Code(s): R10.9 - UNSPECIFIED ABDOMINAL PAIN Qualifiers: Abdominal location: lower abdomen, unspecified Qualified Code(s): R10.30 - Lower abdominal pain, unspecified Visit type - Emergency Visit Emergency Visit: Yes ED Registration Date: 05/13/17 Care time: The patient presented to the Emergency Department on the above date and was hospitalized for further evaluation of their emergent condition. - New Patient This patient is new to me today: No - Critical Care Critical Care patient: Yes Total Critical Care Time (in minutes): 40 Critical Care Statement: The care of this patient involved high complexity decision making to prevent further life threatening deterioration of the patient 's condition and/or to evalute & treat vital organ system(s) failure or risk of failure.
--- NOTE | 2017-05-15 15:15 | PN ---
Physical Exam: SUBJECTIVE: Patient seen and examined Patient is in ICU, comfortable, events noted that occurred in am. Patient had a high output failure was given diuretic and had an output of 5500ml. NG tube is being removed. OBJECTIVE: Vital Signs Temperature 99.1 F 05/15/17 13:02 Pulse Rate 98 H 05/15/17 16:00 Respiratory Rate 21 05/15/17 16:00 Blood Pressure 128/93 05/15/17 16:00 O2 Sat by Pulse Oximetry (%) 100 05/15/17 14:34 GENERAL: The patient is awake, alert, and fully oriented, in no acute distress. HEAD: Normal with no signs of trauma. EYES: PERRL, extraocular movements intact, sclera anicteric, conjunctiva clear. ENT: Ears normal, oropharynx clear without exudates, moist mucous membranes. NECK: Trachea midline, full range of motion, supple. LUNGS: decrease Breath sounds at the bases , positive for crackles at the basis. no accessory muscle use. HEART: Regular rate and rhythm, S1, S2 positive, RIVERA 2/6, no rub or gallop. ABDOMEN: Soft, nontender, nondistended, normoactive bowel sounds, no guarding, no rebound, no hepatosplenomegaly, no masses. EXTREMITIES: 2+ pulses, warm, well-perfused, positive for 2 plus edema. NEUROLOGICAL: Cranial nerves II through XII grossly intact. Normal speech. PSYCH: Normal mood, normal affect. SKIN: Warm, dry, normal turgor, no rashes or lesions noted CBCD WBC 9.9 K/mm3 (4.0-10.0) 05/15/17 05:20 RBC 3.79 M/mm3 (3.60-5.2) 05/15/17 05:20 Hgb 10.5 GM/dL (10.7-15.3) L D 05/15/17 05:20 Hct 30.4 % (32.4-45.2) L 05/15/17 05:20 MCV 80.4 fl (80-96) 05/15/17 05:20 MCHC 34.4 g/dl (32.0-36.0) 05/15/17 05:20 RDW 20.7 % (11.6-15.6) H 05/15/17 05:20 Plt Count 293 K/MM3 (134-434) 05/15/17 05:20 MPV 8.8 fl (7.5-11.1) 05/15/17 05:20 CMP Sodium 137 mmol/L (136-145) 05/15/17 05:20 Potassium 3.2 mmol/L (3.5-5.1) L 05/15/17 05:20 Chloride 97 mmol/L (98-107) L 05/15/17 05:20 Carbon Dioxide 27 mmol/L (21-32) 05/15/17 05:20 Anion Gap 13 (8-16) 05/15/17 05:20 BUN 3 mg/dL (7-18) L D 05/15/17 05:20 Creatinine 0.3 mg/dL (0.55-1.02) L 05/15/17 05:20 Creat Clearance w eGFR > 60 (>60) 05/15/17 05:20 Random Glucose 63 mg/dL (74-106) L 05/15/17 05:20 Calcium 7.9 mg/dL (8.5-10.1) L 05/15/17 05:20 Total Bilirubin 1.6 mg/dL (0.2-1.0) H 05/15/17 05:20 AST 51 U/L (15-37) H 05/15/17 05:20 ALT 27 U/L (12-78) 05/15/17 05:20 Alkaline Phosphatase 174 U/L (45-117) H 05/15/17 05:20 Total Protein 7.2 g/dl (6.4-8.2) 05/15/17 05:20 Albumin 2.8 g/dl (3.4-5.0) L 05/15/17 05:20 CARDIAC ENZYMES Creatine Kinase 264 IU/L (26-192) H D 05/13/17 17:15 Troponin I 0.02 ng/ml (0.00-0.05) 05/14/17 05:20 Home Medications Medication Instructions Recorded Amox-Tr/K Cl [Augmentin 875-125mg 1 tab PO BID #4 tablet 01/29/17 Tablet -] Ferrous Sulfate [Feosol] 325 mg PO BID #60 01/29/17 Miscellaneous Drug Not In Syst 1 each ASDIR #1 misc 01/29/17 [Outpatient Lab Test] Oxycodone HCl/Acetaminophen 1 tab PO Q8H #10 tablet MDD 3 tab 01/29/17 [Percocet 5-325 mg Tablet] Pantoprazole Sodium [Protonix -] 40 mg PO DAILY #30 tablet.ec 01/29/17 Active Medications Generic Name Dose Route Start Last Admin Trade Name Freq PRN Reason Stop Dose Admin Benzocaine/Menthol 1 each 05/15/17 05:52 Cepacol Lozenge - MM PRN PRN SORE THROAT Chlorhexidine Gluconate 1 applic 05/13/17 22:00 05/14/17 22:25 Hibiclens For Decolonization - TP 1 applic HS EMILY Administration Enalapril Maleate 5 mg 05/15/17 10:00 05/15/17 09:59 Vasotec - PO 5 mg BID EMILY Administration Pantoprazole Sodium 100 mls @ 200 mls/hr 05/14/17 22:00 05/15/17 09:59 Protonix 40mg Ivpb (Pre-Docked) IVPB 200 mls/hr BID EMILY Administration Metoprolol Tartrate 25 mg 05/15/17 10:00 05/15/17 09:59 Lopressor - PO 25 mg BID EMILY Administration Mupirocin 1 applic 05/13/17 22:00 05/15/17 09:58 Bactroban Ointment (For Decolonization) - NS 05/18/17 21:59 1 applic BID EMILY Administration Phytonadione 5 mg 05/14/17 10:00 05/15/17 09:49 Aqua Mephyton Injection - SQ 05/16/17 12:00 5 mg DAILY EMILY Administration No reflux of contrast media into the hepatic veins noted. GALLBLADDER: Air within the gallbladder is present. BILIARY DUCTS: Pneumobilia. PANCREAS: Air within the pancreatic duct is noted. The pancreas otherwise appears unremarkable. SPLEEN: Negative. ADRENALS: Negative. KIDNEYS: Negative. AORTA: Negative. LYMPH NODES: Negative. BOWEL: Nasogastric tube is noted in place. Metallic coils are noted in the region of the stomach from prior vascular intervention. There is no evidence of bowel obstruction. Visualized portions of the appendix appear unremarkable. There is no active extravasation of contrast media. There is moderate ascites. No free abdominal air is present. PELVIS: The bladder is distended. The uterus was identified. OTHER: Anasarca is present. No aggressive bone lesions seen. Preliminary dictation was given by the on-call radiologist. IMPRESSION: Hepatic steatosis. Hepatomegaly. Air within the biliary ducts, gallbladder and pancreatic duct, correlate with prior surgical history or endoscopic history. A fistulous track with a hollow viscus cannot be excluded. Moderate ascites. Metallic coil is from prior embolization. Additional comments noted above. US/TRANSVAGINAL ULTRASOUND US HISTORY PROVIDED: Anemia. Real time examination of the pelvis utilizing both the transabdominal and transvaginal probes demonstrates the following: The uterus is normal in size measuring 6.3 x 3.9 x 3.0 cm. No uterine masses are seen. A normal appearing endometrium of 6 mm thickness was demonstrated. The ovaries are normal in size and texture with arterial flow documented to both ovaries with no evidence of ovarian cysts. There is no evidence of adnexal masses. There is a moderate amount of free fluid throughout the pelvis. The etiology of this ascites is uncertain. IMPRESSION: Moderate pelvic ascites, otherwise normal pelvic sonogram. Please see above discussion. CT of abdomen: Low hematocrit, history of GI bleed. Dizziness. TECHNIQUE: Helical images of the chest, abdomen and pelvis were obtained without contrast. FINDINGS: LUNGS: Atelectasis/infiltration present at the left base. No endobronchial lesions seen. Pleura: Trace effusion is present on the left side. Mediastinum: Central line via the right internal jugular vein is noted with the tip within the SVC. The thyroid appears homogeneous. Difficult to evaluate the mediastinum without intravenous contrast media. CARDIAC: Negative. Liver: Hepatomegaly is present. There is fatty infiltration of the liver. No focal liver lesions seen on this unenhanced study. Gallbladder: Air within the gallbladder seen. Biliary: Pneumobilia is present. Pancreas: Difficult to evaluate due to scanty retroperitoneal fat. No IV contrast. It within the pancreatic duct is present. Spleen: Negative. Adrenals: Unable to visualize on this unenhanced study due to scanty retroperitoneal fat. Kidneys: No hydronephrosis or nephrolithiasis seen. Limited without intravenous contrast media. Aorta: Metallic coils are identified from prior embolization. Lymph nodes : Difficult to evaluate due to scanty retroperitoneal fat and no intravenous contrast media. Bowel: No evidence of obstruction. Unremarkable appendix. Moderate ascites. No free intraperitoneal air is identified. Pelvis: The bladder is distended. The uterus was identified. Pelvic ascites. Other: No aggressive bone lesions seen. Anasarca. Preliminary dictation was performed by the on-call radiologist. IMPRESSION: Limited study without oral contrast or intravenous contrast media. Atelectasis/infiltration present at the left base. Hepatomegaly with hepatic steatosis. Pneumobilia, correlate with endoscopic history. A fistula cannot be excluded. Metallic coils from prior embolization. Ascites. Distended bladder. Additional comments noted above. Microbiology 05/13/17 23:00 Urine - Urine Clean Catch Urine Culture - Preliminary Lactose Fermenting Neg Bacilli ECHO: 41.9% , Mild AR, Severe MR, and TR, mild pulmonic valvular regurgitation, left atrium mildly dilated, right atrium mildly dilated. ASSESSMENT AND PLAN: Patient is a 31 y/o F with PMHx of anemia (iron deficiency), hemorrhagic ovarian cysts, s/p surgery for perforated gastric ulcer 01/2017 presents to ER with worsening abdominal pain, nausea, and distention over the last 1-2 weeks. #Acute pulmonary edema s/p IV nitro drip , related to acute diastolic LV failure related to valvular pathology MR exacerbated by HTN, no evidence of MVP . Positive for RF r/o collagen vascular disease Dr. Fleming for consult # Acute severe normocytic anemia with hemoglobin of 2.0 s/p transfusion of 4 units, with 2 units of FFP ,Hgb 2.1, goal hgb >7; FOBT neg, given 4 u total, s/ p vit K 5 mg due to elevated INR ;TSH ordered, FT4, Ft3 r/o Thyroid disorder for consult, r/o SS disease ordered ss panel, GI consult for further GI w/u. #TR, severe in severity with moderate degree of pulmonary HTN, RVSP of 52 mmHg # Acute Hypokalemia: on potassium chloride 10meq x 3 bags will give 2 more rider total of 50mEq #Severe MR and Severe TR with EJF of 40% Cardiology consult ;with Lower extremity edema b/l 3 plus , will check TSH,Ft4,Ft3 #hx of hemorrhagic ovarian cysts - transvaginal U/S ordered, shows moderated ascites # Hx of perforated gastric ulcer s/p surgery Ct abd. and pelvis as above DVT Px: No heparin for now due to severe anemia of 2.0 Visit type - Emergency Visit Emergency Visit: Yes ED Registration Date: 05/13/17 Care time: The patient presented to the Emergency Department on the above date and was hospitalized for further evaluation of their emergent condition. - New Patient This patient is new to me today: No - Critical Care Critical Care patient: Yes Total Critical Care Time (in minutes): 35 Critical Care Statement: The care of this patient involved high complexity decision making to prevent further life threatening deterioration of the patient 's condition and/or to evalute & treat vital organ system(s) failure or risk of failure.
--- NOTE | 2017-05-15 17:40 | PN ---
Progress Note (short form) - Note Progress Note: Patient seen and examined Sitting in chair on nasal oxygen Somewhat dyspneic Seen by GRAVEL HAULER- r/o pelvic malignancy Seen by GI - for EGD when stable Seen by cardiology --right sided valvular disease Last Vital Signs Temp Pulse Resp BP Pulse Ox 99.1 F 97 H 22 127/92 97 05/15/17 13:02 05/15/17 17:00 05/15/17 17:00 05/15/17 17:00 05/15/17 17:28 Dyspneic at rest Diminished breath sounds bilaterally Cor- RSR Abdomen soft Ext- no significant edema CBC, BMP 05/15/17 05:20 05/15/17 05:20 Current Medications Generic Name Dose Route Start Last Admin Trade Name Freq PRN Reason Stop Dose Admin Benzocaine/Menthol 1 each 05/15/17 05:52 Cepacol Lozenge - MM PRN PRN SORE THROAT Chlorhexidine Gluconate 1 applic 05/13/17 22:00 05/14/17 22:25 Hibiclens For Decolonization - TP 1 applic HS EMILY Administration Enalapril Maleate 5 mg 05/15/17 10:00 05/15/17 09:59 Vasotec - PO 5 mg BID EMILY Administration Pantoprazole Sodium 100 mls @ 200 mls/hr 05/14/17 22:00 05/15/17 09:59 Protonix 40mg Ivpb (Pre-Docked) IVPB 200 mls/hr BID EMILY Administration Metoprolol Tartrate 25 mg 05/15/17 10:00 05/15/17 09:59 Lopressor - PO 25 mg BID EMILY Administration Mupirocin 1 applic 05/13/17 22:00 05/15/17 09:58 Bactroban Ointment (For Decolonization) - NS 05/18/17 21:59 1 applic BID EMILY Administration Phytonadione 5 mg 05/14/17 10:00 05/15/17 09:49 Aqua Mephyton Injection - SQ 05/16/17 12:00 5 mg DAILY EMILY Administration Impression: Profound anemia s/p transfusion therapy Right sided heart disease ascites Plan: EGD when feasible MRI of pelvis, Ca-125 Await protein studies celiac assessment
[2017-05-15] MEDS: ENALAPRIL MALEATE 5 MG TABLET (FP) PO SCH (21:34)
[2017-05-15] MEDS: METOPROLOL TARTRATE 25 MG TABLET (FP) PO SCH (21:35)
[2017-05-15] MEDS: CHLORHEXIDINE GLUCONATE 4% CLEANSER FOR DECOLONIZATION TP SCH (21:35)
[2017-05-16 08:10] LABS: BASOPHIL 0.6 % (0-2.0); EOSINOPHIL 2.6 % (0-4.5); MCHC 34.5 g/dl (32.0-36.0); MEAN CELL VOLUME 81.1 fl (80-96); MEAN PLT VOLUME 8.5 fl (7.5-11.1); NEUTROPHILS 70.2 % (42.8-82.8); PLATELET COUNT 240 K/MM3 (134-434); RDW 21.6 % (11.6-15.6); WHITE BLOOD COUNT 7.2 K/mm3 (4.0-10.0)
[2017-05-16 08:36] LABS: CALCIUM 7.8 mg/dL (8.5-10.1); GLUCOSE,RANDOM 74 mg/dL (74-106)
[2017-05-16 08:42] LABS: ALBUMIN 2.2 g/dl (3.4-5.0); ALK PHOS 135 U/L (45-117); ANION GAP 6 (8-16); BILIRUBIN,TOTAL 1.3 mg/dL (0.2-1.0); CO2 33 mmol/L (21-32); CREATININE 0.3 mg/dL (0.55-1.02); LDH 332 U/L (84-246); SGOT/AST 33 U/L (15-37); SGPT/ALT 20 U/L (12-78); TOT PROT 6.1 g/dl (6.4-8.2)
[2017-05-16] MEDS ORDERED: PHYTONADIONE 10 MG/1 ML AMP SQ SCH (10:00)
[2017-05-16] MEDS: PANTOPRAZOLE SODIUM 100 ML IVPB SCH ×2 (10:10→21:06)
[2017-05-16] MEDS: METOPROLOL TARTRATE 25 MG TABLET (FP) PO SCH ×2 (10:10→21:07)
[2017-05-16] MEDS: ENALAPRIL MALEATE 5 MG TABLET (FP) PO SCH ×2 (10:10→21:07)
--- NOTE | 2017-05-16 10:10 | CONSULT ---
Consult Consult Specialty:: Rheumatology - History of Present Illness History of Present Illness: 31 y/o female with history of hemorrhagic ovarian cysts, s/p surgery for perforated gastric ulcer 01/2017 admitted with severe anemia and was found to have pulmonary hypertension, progressive mitral and tricuspid regurgitation and positive rheumatoid factor. Rule out connective tissue disease. HPI. The patient reports a 1 month history of progressive edema of lower limbs and shortness of breath to the point that she could not walk. Two week history of abdominal pain, nausea, non-bloody vomiting, decreased appetite, light- headedness, dizziness, weakness, chest pain with exertion. She denies joint pain, skin rash, oral ulcers, Raynaud's phenomenon, dry eyes, dry mouth, red eyes or fever. On admission Hgb was 2.1, haptoglobin 176, sickle cell trait negative, ESR 42 and CRP 10.4. CK 264, TSH 1.17, urinalysis normal, rheumatoid factor 23,5 and HIV neg. CA 125" 54 (N<38.1) Echo with LV and RV systolic function borderline reduced, severe mitral and tricuspid regurgitation (progression since 04/05/16), moderate pulmonary hypertension (RVSP 52). - Past Medical History Cardio/Vascular: Yes: HTN Gastrointestinal: Yes: Ascites ...LMP: 01/04/17 ...: No Psych: Yes: Depression Additional Medical History: Anemia. Depression not on meds - Past Surgical History Past Surgical History: Yes: None Additional Surgical History: Abdominal surgery due to perforated gastric ulcer - Alcohol/Substance Use Hx Alcohol Use: No History of Substance Use: reports: None - Smoking History Smoking history: Current every day smoker Have you smoked in the past 12 months: Yes Aproximately how many cigarettes per day: 10 - Social History ADL: Independent History of Recent Travel: No Home Medications - Allergies Allergies/Adverse Reactions: Allergies Allergy/AdvReac Type Severity Reaction Status Date / Time No Known Drug Allergies Allergy Verified 05/13/17 16:05 - Home Medications Home Medications: Ambulatory Orders Amox-Tr/K Cl [Augmentin 875-125mg Tablet -] 1 tab PO BID #4 tablet 01/29/17 Ferrous Sulfate [Feosol] 325 mg PO BID #60 01/29/17 Miscellaneous Drug Not In Syst [Outpatient Lab Test] 1 each ASDIR #1 misc Oxycodone HCl/Acetaminophen [Percocet 5-325 mg Tablet] 1 tab PO Q8H #10 tablet MDD 3 tab 01/29/17 Pantoprazole Sodium [Protonix -] 40 mg PO DAILY #30 tablet.ec 01/29/17 Family Disease History - Family Disease History Family Disease History: Other: Mother (anemia) Review of Systems - Review of Systems Constitutional: reports: Weakness Eyes: reports: No Symptoms HENT: reports: No Symptoms Cardiovascular: reports: Shortness of Breath Gastrointestinal: reports: Abdominal Pain Musculoskeletal: reports: No Symptoms Integumentary: reports: No Symptoms Neurological: reports: No Symptoms Physical Exam Vital Signs: Vital Signs Temperature 98.9 F 05/16/17 07:00 Pulse Rate 82 05/16/17 07:00 Respiratory Rate 19 05/16/17 07:00 Blood Pressure 111/73 05/16/17 07:00 O2 Sat by Pulse Oximetry (%) 100 05/15/17 21:00 Constitutional: Yes: No Distress Eyes: Yes: WNL HENT: Yes: WNL Neck: Yes: WNL Cardiovascular: Yes: WNL Respiratory: Yes: WNL Gastrointestinal: Yes: WNL Musculoskeletal: Yes: Other (No active joints) Extremities: Yes: Other (Pitting edema extending to mid third of legs (distal to knees)) Integumentary: Yes: Other (Normal. No increased skin binding, telangiectasia, ischemic changes or calcinosis.) Labs: CBC, BMP 05/16/17 06:45 05/16/17 06:45 Laboratory Tests 05/13/17 05/14/17 05/14/17 23:00 05:20 12:30 ESR Sickle Cell Screen Haptoglobin 176 LD Total C-Reactive Protein Tumor Marker AFP CA 19-9 Antigen CA 125 Antigen 42.0 H TSH Urine Color Ltyellow Urine Appearance Clear Urine pH 9.0 H Ur Specific Lorton 1.015 Urine Protein Negative Urine Glucose (UA) Negative Urine Ketones Negative Urine Blood Negative Urine Nitrite Negative Urine Bilirubin Negative Urine Urobilinogen Negative Ur Leukocyte Esterase Trace H Urine RBC <1 Urine WBC 3 Rheumatoid Factor 05/14/17 05/14/17 05/15/17 15:47 16:25 05:20 ESR Sickle Cell Screen Negative Haptoglobin LD Total 481 H D C-Reactive Protein 10.4 H Tumor Marker AFP CA 19-9 Antigen CA 125 Antigen TSH 1.15 D Urine Color Urine Appearance Urine pH Ur Specific Lorton Urine Protein Urine Glucose (UA) Urine Ketones Urine Blood Urine Nitrite Urine Bilirubin Urine Urobilinogen Ur Leukocyte Esterase Urine RBC Urine WBC Rheumatoid Factor 05/15/17 05/15/17 05/15/17 05:20 05:20 05:20 ESR 42 H Sickle Cell Screen Haptoglobin LD Total C-Reactive Protein Tumor Marker AFP 5.1 CA 19-9 Antigen 2 CA 125 Antigen 54.4 H TSH Urine Color Urine Appearance Urine pH Ur Specific Lorton Urine Protein Urine Glucose (UA) Urine Ketones Urine Blood Urine Nitrite Urine Bilirubin Urine Urobilinogen Ur Leukocyte Esterase Urine RBC Urine WBC Rheumatoid Factor 23.5 H Problem List - Problems (1) Systemic involvement of connective tissue Assessment/Plan: 31 y/o with progressive mitral regurgitation, pulmonary hypertension and rheumatoid factor positive. The patient does not have inflammatory arthritis or clinical changes suggestive of scleroderma or other connective tissue disease. Rule out anti-phospholipid syndrome, infiltrative disease, sarcoidosis or other. Plan: Labs. As per discussion with Dr. Kamara, consider transfer to tertiary care center, consider heart MRI, Bx. Code(s): M35.9 - SYSTEMIC INVOLVEMENT OF CONNECTIVE TISSUE, UNSPECIFIED
[2017-05-16] MEDS: MUPIROCIN 2% TOPICAL OINTMENT FOR DECOLONIZATION NS SCH ×2 (10:11→21:04)
--- NOTE | 2017-05-16 10:11 | PN ---
Progress Note (short form) - Note Progress Note: S: 31 year old female, admitted with increasing pedal edema, dyspnea, chest discomfort, lightheadedness, profound fatigue, history of post hypertension and states that she has periodically been told that she has elevated blood pressure which was not treated. History of recurring severe anemia and gastric perforation requiring surgery. Patient was admitted with the above mentioned symptoms and was found to have severe anemia, requiring multiple transfusions and was also treated for congestive heart failure. Patient had been diagnosed with severe mitral and tricuspid regurgitation and moderate pulmonary hypertension and borderline left and right ventricular systolic dysfunction. On questioning she gives history of ongoing epigastric discomfort, states that she has been experiencing diarrhea. Denies having melena or hematemasis. CT Scan revealed; Ascites, hepatomegaly, hepatic steatosis, pneumobilia, metallic colic from prior embolization, distended bladder. Current Medications Generic Name Dose Route Start Last Admin Trade Name Freq PRN Reason Stop Dose Admin Benzocaine/Menthol 1 each 05/15/17 21:01 Cepacol Lozenge - MM PRN PRN SORE THROAT Chlorhexidine Gluconate 1 applic 05/15/17 22:00 05/15/17 21:35 Hibiclens For Decolonization - TP Not Given HS EMILY Enalapril Maleate 5 mg 05/15/17 22:00 05/16/17 10:10 Vasotec - PO 5 mg BID EMILY Administration Pantoprazole Sodium 100 mls @ 200 mls/hr 05/15/17 22:00 05/16/17 10:10 Protonix 40mg Ivpb (Pre-Docked) IVPB 200 mls/hr BID EMILY Administration Metoprolol Tartrate 25 mg 05/15/17 22:00 05/16/17 10:10 Lopressor - PO 25 mg BID EMILY Administration Mupirocin 1 applic 05/15/17 22:00 05/16/17 10:11 Bactroban Ointment (For Decolonization) - NS 05/18/17 21:59 Not Given BID EMILY Phytonadione 5 mg 05/16/17 10:00 05/16/17 10:30 Aqua Mephyton Injection - SQ 05/16/17 12:00 5 mg DAILY EMILY Administration O: 31 year old female was in no acute distress, no pallor, cyanosis, clubbing, or jaundice. Last Vital Signs Temp Pulse Resp BP Pulse Ox 98.9 F 82 19 111/73 100 05/16/17 07:00 05/16/17 07:00 05/16/17 07:00 05/16/17 07:00 05/15/17 21:00 Neck: Supple, no JVD, negative HJR, carotids were equal and upstrokes were normal, no thyromegaly appreciated. Heart: PMI was in the 5th intercostal space, no heaves or thrills, S1 was extenuated and S2 was normal. Grade I/ apical systolic murmur which was poorly radiating. No diastolic murmur was heard. No gallops were appreciated. Lungs: Clear on auscultation bilaterally. Abdomen: Soft, nontender, liver edge is palpable, no splenomegaly, no dullness involving the flanks on precussion. No palpable masses were felt. Extremities: No calf tenderness or dependent edema. Pulses are normal. CBC, BMP 05/16/17 06:45 Laboratory Results - last 24 hr 05/14/17 05/15/17 05/15/17 16:26 05:20 05:20 WBC Corrected WBC (auto) RBC Hgb Hct MCV MCHC RDW Plt Count MPV Neutrophils % Lymphocytes % Monocytes % Eosinophils % Basophils % Differential Comment Platelet Estimate Platelet Comment RBC Morphology Sodium Potassium Chloride Carbon Dioxide Anion Gap BUN Creatinine Creat Clearance w eGFR Random Glucose Calcium Total Bilirubin AST ALT Alkaline Phosphatase LD Total Total Protein Albumin Azoyf-3-Vatvmlyyc (%) Cancelled Leljp-3-Jrsxfsamn (%) Cancelled Beta Globulins (%) Cancelled Gamma Globulins (%) Cancelled M-Garfield % Cancelled Tumor Marker AFP 5.1 CA 19-9 Antigen 2 CA 125 Antigen 54.4 H Tumor Marker HCG Free T3 2.1 Ref Test Comments Cancelled 05/15/17 05/16/17 05/16/17 05:20 06:45 06:45 WBC Cancelled Corrected WBC (auto) Cancelled RBC Cancelled Hgb Cancelled Hct Cancelled MCV Cancelled MCHC Cancelled RDW Cancelled Plt Count Cancelled MPV Cancelled Neutrophils % Lymphocytes % Monocytes % Eosinophils % Basophils % Differential Comment Cancelled Platelet Estimate Cancelled Platelet Comment Cancelled RBC Morphology Cancelled Sodium 135 L Potassium 3.0 L Chloride 96 L Carbon Dioxide 33 H D Anion Gap 6 L BUN 4 L D Creatinine 0.3 L Creat Clearance w eGFR > 60 Random Glucose 74 Calcium 7.8 L Total Bilirubin 1.3 H AST 33 D ALT 20 D Alkaline Phosphatase 135 H D LD Total 332 H D Total Protein 6.1 L Albumin 2.2 L D Rvpcv-5-Piiuokxrh (%) Gjnua-4-Hnxotkftb (%) Beta Globulins (%) Gamma Globulins (%) M-Garfield % Tumor Marker AFP CA 19-9 Antigen CA 125 Antigen Tumor Marker HCG < 1.0 Free T3 Ref Test Comments 05/16/17 06:45 WBC 7.2 Corrected WBC (auto) RBC 3.60 Hgb 10.1 L Hct 29.2 L MCV 81.1 MCHC 34.5 RDW 21.6 H Plt Count 240 MPV 8.5 Neutrophils % 70.2 Lymphocytes % 21.4 Monocytes % 5.2 D Eosinophils % 2.6 D Basophils % 0.6 Differential Comment Platelet Estimate Platelet Comment RBC Morphology Sodium Potassium Chloride Carbon Dioxide Anion Gap BUN Creatinine Creat Clearance w eGFR Random Glucose Calcium Total Bilirubin AST ALT Alkaline Phosphatase LD Total Total Protein Albumin Shdcl-3-Ojfekydaa (%) Mjfdz-8-Likltstxj (%) Beta Globulins (%) Gamma Globulins (%) M-Garfield % Tumor Marker AFP CA 19-9 Antigen CA 125 Antigen 54.4 H Tumor Marker HCG Free T3 Ref Test Comments Rheumatoid Factor 23.5 H Impression: (1) Congestive heart failure etiology; a. Secondary to severe anemia (high output failure). b. Post cardiomyopathy needs to be excluded. c. Hypertension, hypertensive cardiovascular disease (untreated) (2) History of perforated peptic ulcer s/p garcia patch closure (01/2017) (3) Severe mitral regurgitation (4) Severe tricuspid regurgitation (5) Pulmonary hypertension (6) Recurrent severe anemia, etiology to be determined (7) Elevated CA 125 (8) Asmita-Vasquez syndrome needs exclusion (9) Hypokalemia (10) Ascites as recorded on CT abdomen, etiology needs to be determined Recommendations: 1. Correction of serum potassium. 2. Obtain serum magnesium. 3. Gastrin levels. 4. Once patient is stabilized she should be considered for cardiac cauterization and possible myocardial biopsy. 5. Add ZAYDA inhibitor or ARB. 6. Follow up CBC Prognosis: Guarded Attestation: Documentation prepared by Mo De La Paz, acting as medical insurance coding specialist for Kenji Kamara MD.
--- NOTE | 2017-05-16 12:04 | PN ---
Progress Note (short form) - Note Progress Note: Attending Surgeon Seen in f/u; no c/o; out of the ICU; tolerating clear liquid diet VSS AF abdomen-benign labs noted IMP: No evidence of an acute surgical problem at this time PLAN: Advance diet as tolerated; reconsult prn. Malick Robin MD FACS
[2017-05-16] MEDS: POTASSIUM CHLORIDE TABS 20 MEQ TABLET.ER (FP) PO SCH (13:31)
--- NOTE | 2017-05-16 13:51 | PATH ---
Surgical Pathology Report Patient Name: MITUL SMITH Med. Rec. #: [id number] /Age/Gender: 1985 (Age: 31) / F Account: [id number] Location: 4 W TELEMETRY U Taken: 05/15/2017 Received: 05/15/2017 Reported: 05/16/2017 Physicians: Janna Avery M.D. Specimen(s) Received PERIPHERAL BLOOD Clinical History Anemia Final Diagnosis FLOW CYTOMETRY [facility]FOR[facility] [place] ([id number]) SHOWED THE FOLLOWING: INTERPRETATION: GRANULOCYTOSIS WITH NO DISCRETE ATYPICAL FLOW CYTOMETRIC FINDINGS SEEN. Phenotype: Granulocytes are increased but show no detectable aberrant marker expression. Blasts are not increased. Lymphocytes are proportionally decreased and include polyclonal B-cells, NK-cells and immunophenotypically normal CD4+ and CD8+ T-cells in normal proportions. No evidence of a clonal lymphoid expansion. Cytomorphology: increased granulocytes. Electronically Signed Rayray Shay M.D. Gross Description Received are 2 green top tubes of peripheral blood which are sent to [facility]. /05/15/2017 saudi/05/15/2017
--- NOTE | 2017-05-16 14:45 | PN ---
Teaching Attending Note Name of Resident: Darlene Srinivasan ATTENDING PHYSICIAN STATEMENT I saw and evaluated the patient. I reviewed the resident's note and discussed the case with the resident. I agree with the resident's findings and plan as documented. SUBJECTIVE: no fever ro hcills, has no abd pain, feels a little better, . 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 1- Severe anemia: although the MCV is NL , the NL ferritin after transfusion indicates iron def. slow GI bleed still needs to be r/o . other causes like rheumatologic, BM suppresison , malignancy could be in DDx . LDH is slightly elevated, and indirect bili is elevated, , but HApto is NL. unlikely she is hemolysing , still consider - check CCP - juan a - needs EGD - check pelvic MRI due to elevated CA 125 - check gastrin level 2- Acute S CHF: with severe MR Duran TR. last echo 2016 reviewed. with trace MR. unclear etiology. case was d/w Dr. Szymanski. CM , Hypertensive CM needs to be r/o viral CM is in DDx - cont ZAYDA and BB - looks euvolemic now, after diuresing 5 L yesterday. will diurese on PRN bases - will need cardiac cath . 3-hypokalemia , replete and check Mg HLOC
--- NOTE | 2017-05-16 16:27 | PN ---
Physical Exam: SUBJECTIVE: Patient seen and examined at bed side this morning. No Complaints. Doesn't feel weak and tired today. Denies chest pain, sob, cough, palpitation, abdominal pain, nausea or vomiting. Bowel/Bladder habit normal. Sleep/Appetite normal. OBJECTIVE: Vital Signs Period Temp Pulse Resp BP Sys/Suárez Pulse Ox Last 24 Hr 97.2 F-99.2 F 81-104 19-22 109-127/68-99 97-100 GENERAL: Young female, lying comfortably in bed, is awake, alert, and fully oriented, in no acute distress, NG tube in place. HEAD: Normal with no signs of trauma. EYES: EOM intact, slight pallor, no icterus. ENT: Ears normal, moist mucous membranes. NECK: Supple LUNGS: Breath sounds equal, clear to auscultation bilaterally, no wheezes, no crackles, no accessory muscle use. HEART: Tachycardic, Regular rate and rhythm, S1, S2 with systolic murmur. ABDOMEN: Surgical scar isabel, Soft, nontender, nondistended, normoactive bowel sounds, no guarding, no rebound, no hepatosplenomegaly, no masses. EXTREMITIES: UPPER 2+ pulses, warm, well-perfused, no edema. LOWER EXTREMITIES: 2+ pulses, warm, well-perfused, B/L pitting edema-Improved. NEUROLOGICAL: Cranial nerves II through XII grossly intact. Normal speech, gait not observed. PSYCH: Normal mood, normal affect. SKIN: Warm, dry, normal turgor, no rashes or lesions noted Laboratory Results - last 24 hr 05/14/17 05/15/17 05/15/17 16:26 05:20 05:20 WBC Corrected WBC (auto) RBC Hgb Hct MCV MCHC RDW Plt Count MPV Neutrophils % Lymphocytes % Monocytes % Eosinophils % Basophils % Differential Comment Platelet Estimate Platelet Comment RBC Morphology Sodium Potassium Chloride Carbon Dioxide Anion Gap BUN Creatinine Creat Clearance w eGFR Random Glucose Calcium Total Bilirubin AST ALT Alkaline Phosphatase LD Total Total Protein Albumin Tumor Marker AFP 5.1 CA 19-9 Antigen 2 CA 125 Antigen 54.4 H Tumor Marker HCG < 1.0 Free T3 2.1 05/16/17 05/16/17 05/16/17 06:45 06:45 06:45 WBC Cancelled 7.2 Corrected WBC (auto) Cancelled RBC Cancelled 3.60 Hgb Cancelled 10.1 L Hct Cancelled 29.2 L MCV Cancelled 81.1 MCHC Cancelled 34.5 RDW Cancelled 21.6 H Plt Count Cancelled 240 MPV Cancelled 8.5 Neutrophils % 70.2 Lymphocytes % 21.4 Monocytes % 5.2 D Eosinophils % 2.6 D Basophils % 0.6 Differential Comment Cancelled Platelet Estimate Cancelled Platelet Comment Cancelled RBC Morphology Cancelled Sodium 135 L Potassium 3.0 L Chloride 96 L Carbon Dioxide 33 H D Anion Gap 6 L BUN 4 L D Creatinine 0.3 L Creat Clearance w eGFR > 60 Random Glucose 74 Calcium 7.8 L Total Bilirubin 1.3 H AST 33 D ALT 20 D Alkaline Phosphatase 135 H D LD Total 332 H D Total Protein 6.1 L Albumin 2.2 L D Tumor Marker AFP CA 19-9 Antigen CA 125 Antigen Tumor Marker HCG Free T3 Active Medications Generic Name Dose Route Start Last Admin Trade Name Freq PRN Reason Stop Dose Admin Benzocaine/Menthol 1 each 05/15/17 21:01 Cepacol Lozenge - MM PRN PRN SORE THROAT Chlorhexidine Gluconate 1 applic 05/15/17 22:00 05/15/17 21:35 Hibiclens For Decolonization - TP Not Given HS EMILY Enalapril Maleate 5 mg 05/15/17 22:00 05/16/17 10:10 Vasotec - PO 5 mg BID EMILY Administration Pantoprazole Sodium 100 mls @ 200 mls/hr 05/15/17 22:00 05/16/17 10:10 Protonix 40mg Ivpb (Pre-Docked) IVPB 200 mls/hr BID EMILY Administration Metoprolol Tartrate 25 mg 05/15/17 22:00 05/16/17 10:10 Lopressor - PO 25 mg BID EMILY Administration Mupirocin 1 applic 05/15/17 22:00 05/16/17 10:11 Bactroban Ointment (For Decolonization) - NS 05/18/17 21:59 Not Given BID EMILY Potassium Chloride 40 meq 05/16/17 13:15 05/16/17 13:31 K-Dur - PO 05/17/17 10:01 40 meq DAILY EMILY Administration ASSESSMENT/PLAN: Patient is a 31 year old Female with significant past medical history of anemia (iron deficiency), hemorrhagic ovarian cysts, s/p surgery for perforated gastric ulcer 01/2017 presents to ER with worsening abdominal pain, nausea, and distention over the last 1-2 weeks. # Severe symptomatic anemia likely due to chronic GI loss H/o Perforated gastric ulcers; FOBT- negative; s/p 4 PRBC and 2 FFPs this admission. will d/w Dr. Muñiz about EGD as she is hemodynamically stable. Ordered Jacqueline test, CCP as RF is high, Will check for Gastrin level to r/o ZES, LUCIAN 2/bcr/,Hematology consult appreciated # Chest pain-likely musculoskeletal vs demand ischemia due to severe anemia Troponins x 2 negative ECHO showed: As compared to 04/03/2016 significant increase in the severity of MR and TR. Left ventricle normal in size. Mild pulmonic valvular regurgitation Cardiology consult appreciated who recommends to transfer to tertiary care center for possible Biopsy of the heart. # Gastric ulcer s/p paulie patch Paulie patch for perforated gastric ulcer in 2015. Past h/o perforated gastric ulcer s/p surgery 01/2017 Guaiac negative. NG tube d/c GI consult appreciated who recommends; EGD , PPI On IV Protonix Clear liquid IR consulted for possible ascitic tapping. # Systemic involvement of Connective tissue disease RF elevated, r/o anti-phospholipid syndrome, infiltrative disease, sarcoidosis as per Rheum attending. # Less likely Pneumonia Afebrile CT Chest: Atelectasis/Infiltration present at the left base. # Hypokalemia K-3 , K-Dur daily. # Lower Extremity edema Likely secondary to cardiac cause # H/o hemorrhagic ovarian cyst TVS: Moderate pelvic ascites, no other acute pathology Pelvic MRI since CA-125 x 2 is high. # FEN Not on IV fluids Electrolytes to be repeated tomorrow NPO # Prophylaxis For DVT: AC contraindicated due to severe anemia For GI; On protonix # Code Status: Full code # Dispo: Admitted in Med-Surg. Duration of stay unknown. Illness, Investigation and Plan of care explained to the patient. She verbalized understanding. Case seen and discussed with Dr. Hood. Visit type - Emergency Visit Emergency Visit: Yes ED Registration Date: 05/13/17 Care time: The patient presented to the Emergency Department on the above date and was hospitalized for further evaluation of their emergent condition. - New Patient This patient is new to me today: No - Critical Care Critical Care patient: No - Discharge Referral Referred to [facility] Med P.C.: No
--- NOTE | 2017-05-16 18:36 | PN ---
GI Progress Note Subjective: had 2 episodes of diarrhea today, no nausea, no vomiting, no abdominal pain - Objective Vital Signs: Vital Signs Temperature 97.2 F L 05/16/17 15:58 Pulse Rate 86 05/16/17 15:58 Respiratory Rate 22 05/16/17 10:00 Blood Pressure 109/68 05/16/17 15:58 O2 Sat by Pulse Oximetry (%) 100 05/16/17 09:00 Constitutional: Well Nourished Eyes: Yes: Conjunctiva Clear HENT: Yes: Atraumatic Neck: Yes: Supple Cardiovascular: Yes: Regular Rate and Rhythm Respiratory: Yes: CTA Bilaterally ...Palpate: Yes: Soft. No: Firm/Rigid, Guarding, Hepatomegaly, Mass, Splenomegaly, Tenderness Labs: CBC, BMP 05/16/17 06:45 05/16/17 06:45 INR, PTT INR 1.46 (0.82-1.09) H 05/15/17 06:00 Fibrinogen 247.0 mg/dL (238-498) 05/14/17 05:20 Problem List - Problems (1) Anemia Assessment/Plan: r/o occult gi bleeding R> for EGD once medically cleared advance diet Code(s): D64.9 - ANEMIA, UNSPECIFIED Qualifiers: Anemia type: unspecified type Qualified Code(s): D64.9 - Anemia, unspecified (2) Pneumobilia Assessment/Plan: etiology uncelar, no previous ERCP only repeair of gastric ulcer R> for MRCP Code(s): K83.8 - OTHER SPECIFIED DISEASES OF BILIARY TRACT
[2017-05-16] MEDS: CHLORHEXIDINE GLUCONATE 4% CLEANSER FOR DECOLONIZATION TP SCH (21:04)
[2017-05-17 00:06] LABS: A/G RATIO 0.6 (0.7-1.7); ALBUMIN 2.6 g/dL (2.9-4.4); GLOBULIN, TOTAL 4.4 g/dL (2.2-3.9); M-SPIKE Not Observed g/dL (Not Observed)
[2017-05-17 06:07] LABS: HAPTOGLOBIN 193 mg/dL (34-200)
[2017-05-17 07:19] LABS: MCH 27.8 pg (25.7-33.7); MCHC 33.4 g/dl (32.0-36.0); MEAN CELL VOLUME 83.2 fl (80-96); MEAN PLT VOLUME 8.4 fl (7.5-11.1); PLATELET COUNT 285 K/MM3 (134-434); RDW 21.9 % (11.6-15.6); WHITE BLOOD COUNT 8.8 K/mm3 (4.0-10.0)
[2017-05-17 08:48] LABS: ALBUMIN 2.4 g/dl (3.4-5.0); ALK PHOS 182 U/L (45-117); ANION GAP 9 (8-16); BILIRUBIN,TOTAL 0.8 mg/dL (0.2-1.0); CALCIUM 8.3 mg/dL (8.5-10.1); CO2 30 mmol/L (21-32); CREATININE 0.4 mg/dL (0.55-1.02); GLUCOSE,RANDOM 80 mg/dL (74-106); MAGNESIUM 1.9 mg/dL (1.8-2.4); SGOT/AST 28 U/L (15-37); SGPT/ALT 21 U/L (12-78); TOT PROT 6.2 g/dl (6.4-8.2)
[2017-05-17] MEDS: POTASSIUM CHLORIDE TABS 20 MEQ TABLET.ER (FP) PO SCH (09:42)
[2017-05-17] MEDS: ENALAPRIL MALEATE 5 MG TABLET (FP) PO SCH ×2 (09:42→21:44)
[2017-05-17] MEDS: PANTOPRAZOLE SODIUM 100 ML IVPB SCH ×2 (09:42→21:43)
[2017-05-17] MEDS: METOPROLOL TARTRATE 25 MG TABLET (FP) PO SCH ×2 (09:42→21:43)
--- NOTE | 2017-05-17 11:34 | PN ---
Progress Note, Physician History of Present Illness: Dyspnea on exertion and BP control improved. - Current Medication List Current Medications: Active Medications Benzocaine/Menthol (Cepacol Lozenge -) 1 each MM PRN PRN PRN Reason: SORE THROAT Enalapril Maleate (Vasotec -) 5 mg PO BID [facility] Last Admin: 05/17/17 09:42 Dose: 5 mg Pantoprazole Sodium (Protonix 40mg Ivpb (Pre-Docked)) 100 mls @ 200 mls/hr IVPB BID [facility] Last Admin: 05/17/17 09:42 Dose: 200 mls/hr Metoprolol Tartrate (Lopressor -) 25 mg PO BID [facility] Last Admin: 05/17/17 09:42 Dose: 25 mg - Objective Vital Signs: Vital Signs Temperature 97.1 F L 05/17/17 08:45 Pulse Rate 98 H 05/17/17 08:45 Respiratory Rate 19 05/17/17 08:55 Blood Pressure 103/58 05/17/17 08:45 O2 Sat by Pulse Oximetry (%) 100 05/17/17 08:55 Constitutional: Yes: No Distress, Calm, Thin Neck: Yes: Supple Cardiovascular: Yes: Regular Rate and Rhythm, Murmur (2/6 SM) Respiratory: Yes: Regular, CTA Bilaterally Gastrointestinal: Yes: Normal Bowel Sounds, Soft Edema: No Labs: CBC, BMP 05/17/17 05:37 05/17/17 05:37 INR, PTT INR 1.46 (0.82-1.09) H 05/15/17 06:00 Fibrinogen 247.0 mg/dL (238-498) 05/14/17 05:20 Problem List - Problems (1) Anemia Code(s): D64.9 - ANEMIA, UNSPECIFIED Qualifiers: Anemia type: iron deficiency Iron deficiency anemia type: chronic blood loss Qualified Code(s): D50.0 - Iron deficiency anemia secondary to blood loss (chronic) (2) Hypertension Code(s): I10 - ESSENTIAL (PRIMARY) HYPERTENSION Qualifiers: Hypertension type: essential hypertension Qualified Code(s): I10 - Essential (primary) hypertension (3) Acute diastolic congestive heart failure Code(s): I50.31 - ACUTE DIASTOLIC (CONGESTIVE) HEART FAILURE (4) Severe mitral regurgitation Code(s): I34.0 - NONRHEUMATIC MITRAL (VALVE) INSUFFICIENCY (5) Severe tricuspid regurgitation Code(s): I07.1 - RHEUMATIC TRICUSPID INSUFFICIENCY Assessment/Plan Echocardiography dated 05/14/2017 revealed normal LV size and function with severe MR and TR with moderate degree of pulmonary HTN, no MVP or flail leaflet so etiology of valvular pathology is unclear 1. Acute pulmonary edema related to acute diastolic LV failure referable to valvular pathology MR exacerbated by HTN and severe anemia (high output) resolving 2. Hypertension, hypertensive cardiovascular disease 3. MR, severe in severity etiology of which to be determined, no evidence of MVP or flail leaflets, possible collagen vascular disease or endocarditis 4. TR, severe in severity with moderate degree of pulmonary HTN, RVSP of 52 mmHg 5. Anemia, post transfusion, etiology to be determined 6. Post recent perforated gastric ulcer post Paulie patch repair 01/2017 PLAN: 1. Continue Lopressor 25 bid and vasotec 5 bid 2. Monitor Hg and maintain equal or greater than 8.0 3. Repeat echo to assess degree of valvular abnormality now that BP controlled and anemia has been corrected 4. EGD once euvolemic
--- NOTE | 2017-05-17 12:36 | PN ---
Progress Note (short form) - Note Progress Note: SOB improving. H&H stable and no occult bleeding noted overnight. No CP. Intake & Output 05/14/17 05/15/17 05/16/17 05/17/17 23:59 23:59 23:59 23:59 Intake Total 4897 1574 400 100 Output Total 3900 7150 400 Balance 997 -5576 0 100 Weight 116 lb 2 oz 104 lb 9 oz 97 lb 6 oz Last Vital Signs Temp Pulse Resp BP Pulse Ox 97.1 F L 98 H 19 103/58 100 05/17/17 08:45 05/17/17 08:45 05/17/17 08:55 05/17/17 08:45 05/17/17 08:55 Active Medications Benzocaine/Menthol (Cepacol Lozenge -) 1 each MM PRN PRN PRN Reason: SORE THROAT Enalapril Maleate (Vasotec -) 5 mg PO BID [facility] Last Admin: 05/17/17 09:42 Dose: 5 mg Pantoprazole Sodium (Protonix 40mg Ivpb (Pre-Docked)) 100 mls @ 200 mls/hr IVPB BID [facility] Last Admin: 05/17/17 09:42 Dose: 200 mls/hr Metoprolol Tartrate (Lopressor -) 25 mg PO BID [facility] Last Admin: 05/17/17 09:42 Dose: 25 mg Potassium Phos/Sodium Phos (Phos-Nak Packet -) 1 packet PO ONCE ONE Stop: 05/17/17 12:51 Gen: NAD Heart: S1S2, regular Lung: decreased breath sounds at the bases Abd: soft, nontender Ext: + edema Laboratory Results - last 24 hr 05/13/17 05/15/17 05/15/17 17:15 05:20 05:20 WBC RBC Hgb Hct MCV MCHC RDW Plt Count MPV Haptoglobin Sodium Potassium Chloride Carbon Dioxide Anion Gap BUN Creatinine Creat Clearance w eGFR Random Glucose Calcium Phosphorus Magnesium Total Bilirubin AST ALT Alkaline Phosphatase Prot Electrophoresis Serum Total Protein 7.0 Total Protein Albumin 2.6 L Globulin 4.4 H Albumin/Globulin Ratio 0.6 L Bxvoi-6-Jkitvzqba 0.5 H Ansvq-3-Nrycesohu (%) Cancelled Iasef-1-Ltnoawdbh 0.8 Fuckx-6-Vaqykkchd (%) Cancelled Beta Globulins 1.0 Beta Globulins (%) Cancelled Gamma Globulins 2.0 H Gamma Globulins (%) Cancelled M-Garfield % Cancelled DARON M-Garfield Not observed Free [place] LC, Quant 31.0 H Free Lambda LC, Quant 21.4 Free [place]/Lambda Ratio 1.45 Ref Test Comments Cancelled Blood Type O POSITIVE Antibody Screen Positive H Antibody Identification K Direct Antiglob Test Crossmatch See Detail 05/16/17 05/16/17 05/16/17 06:45 18:00 18:00 WBC RBC Hgb Hct MCV MCHC RDW Plt Count MPV Haptoglobin 193 Sodium Potassium Chloride Carbon Dioxide Anion Gap BUN Creatinine Creat Clearance w eGFR Random Glucose Calcium Phosphorus Magnesium 1.7 L D Total Bilirubin AST ALT Alkaline Phosphatase Prot Electrophoresis Serum Total Protein Total Protein Albumin Globulin Albumin/Globulin Ratio Ttuln-4-Gatpodtya Tbmti-0-Rwzxsvube (%) Wneug-5-Tarkhtsww Rzkyf-3-Ngpaobyha (%) Beta Globulins Beta Globulins (%) Gamma Globulins Gamma Globulins (%) M-Garfield % DARON M-Garfield Free [place] LC, Quant Free Lambda LC, Quant Free [place]/Lambda Ratio Ref Test Comments Blood Type Antibody Screen Antibody Identification Direct Antiglob Test Negative Crossmatch 05/17/17 05/17/17 05:37 05:37 WBC 8.8 RBC 3.82 Hgb 10.6 L Hct 31.8 L MCV 83.2 MCHC 33.4 RDW 21.9 H Plt Count 285 MPV 8.4 Haptoglobin Sodium 138 Potassium 3.6 Chloride 99 Carbon Dioxide 30 Anion Gap 9 BUN 7 D Creatinine 0.4 L D Creat Clearance w eGFR > 60 Random Glucose 80 Calcium 8.3 L Phosphorus 1.0 L* D Magnesium 1.9 Total Bilirubin 0.8 D AST 28 ALT 21 Alkaline Phosphatase 182 H D Prot Electrophoresis Serum Total Protein Total Protein 6.2 L Albumin 2.4 L Globulin Albumin/Globulin Ratio Dppgo-0-Tkotfqrsj Lfknp-8-Vvsoszuck (%) Bnrfj-2-Gfbfbuigc Zalkw-0-Lwzhnzszy (%) Beta Globulins Beta Globulins (%) Gamma Globulins Gamma Globulins (%) M-Garfield % DARON M-Garfield Free [place] LC, Quant Free Lambda LC, Quant Free [place]/Lambda Ratio Ref Test Comments Blood Type Antibody Screen Antibody Identification Direct Antiglob Test Crossmatch ASSESSMENT AND PLAN: Severe Anemia s/p PRBC transfusions Acute Diastolic Heart Failure Severe Mitral/Tricuspid Regurgitation Recent Perforated Duodenal Ulcer repair Hypokalemia - monitor H/H - Normal transfusion thersholds - Lasix as needed - ZAYDA-I - replete lytes - O2 to keep SpO2 >90% - VTE prophylaxis Dr Hayes
[2017-05-17] MEDS ORDERED: NAPH,MB-DB/K PH,MBDB POWDER PACKET PO ONE ×2 (12:50→17:15)
--- NOTE | 2017-05-17 14:59 | PN ---
Physical Exam: SUBJECTIVE: Patient seen and examined at bed side this morning. Feels better. Has been sitting on the chair, going to the bathroom independently. Denies chest pain, sob, cough, palpitation, abdominal pain, nausea or vomiting. Bowel/ Bladder habit normal. Sleep/Appetite normal. Patient said that she hasn't been feeling well since - was tired, feeling weak, unable to perform daily activities. She went to her physician a couple of times but says they were not able to find out the exact cause. She then started taking Tylenol, Ibuprofen. She also had palpitation almost everyday and her boyfriend suggested her take sandhya aspirin which is taking daily couple of times until she got admitted here. Patient mentions she didn't know it causes gastric ulcer. Now, she has been recommended to avoid medications causing gastric ulcers. OBJECTIVE: Vital Signs Period Temp Pulse Resp BP Sys/Suárez Pulse Ox Last 24 Hr 97.1 F-98.5 F 86-102 19-20 94-117/54-71 100-100 GENERAL: Young female, lying comfortably in bed, is awake, alert, and fully oriented, in no acute distress. No Gonzalez. HEAD: Normal with no signs of trauma. EYES: EOM intact, slight pallor, no icterus. ENT: Ears normal, moist mucous membranes. NECK: Supple LUNGS: Breath sounds equal, clear to auscultation bilaterally, no wheezes, no crackles, no accessory muscle use. HEART: Tachycardic, Regular rate and rhythm, S1, S2 with systolic murmur. ABDOMEN: Surgical scar isabel, Soft, nontender, nondistended, normoactive bowel sounds, no guarding, no rebound, no hepatosplenomegaly, no masses. EXTREMITIES: UPPER 2+ pulses, warm, well-perfused, no edema. LOWER EXTREMITIES: 2+ pulses, warm, well-perfused, B/L pitting edema-Resolved. NEUROLOGICAL: Cranial nerves II through XII grossly intact. Normal speech, gait not observed. PSYCH: Normal mood, normal affect. SKIN: Warm, dry, normal turgor, no rashes or lesions noted Laboratory Results - last 24 hr 05/15/17 05/15/17 05/16/17 05:20 05:20 06:45 WBC RBC Hgb Hct MCV MCHC RDW Plt Count MPV Haptoglobin 193 Sodium Potassium Chloride Carbon Dioxide Anion Gap BUN Creatinine Creat Clearance w eGFR Random Glucose Calcium Phosphorus Magnesium Total Bilirubin AST ALT Alkaline Phosphatase Prot Electrophoresis Serum Total Protein 7.0 Total Protein Albumin 2.6 L Globulin 4.4 H Albumin/Globulin Ratio 0.6 L Kkkcx-2-Rvrbjzzfd 0.5 H Riciw-9-Csmcnknjg (%) Cancelled Bmzqs-4-Krdqdwokg 0.8 Zmprs-4-Otjurmsnc (%) Cancelled Beta Globulins 1.0 Beta Globulins (%) Cancelled Gamma Globulins 2.0 H Gamma Globulins (%) Cancelled M-Garfield % Cancelled DARON M-Garfield Not observed Free [place] LC, Quant 31.0 H Free Lambda LC, Quant 21.4 Free [place]/Lambda Ratio 1.45 Ref Test Comments Cancelled Direct Antiglob Test 05/16/17 05/16/17 05/17/17 18:00 18:00 05:37 WBC 8.8 RBC 3.82 Hgb 10.6 L Hct 31.8 L MCV 83.2 MCHC 33.4 RDW 21.9 H Plt Count 285 MPV 8.4 Haptoglobin Sodium Potassium Chloride Carbon Dioxide Anion Gap BUN Creatinine Creat Clearance w eGFR Random Glucose Calcium Phosphorus Magnesium 1.7 L D Total Bilirubin AST ALT Alkaline Phosphatase Prot Electrophoresis Serum Total Protein Total Protein Albumin Globulin Albumin/Globulin Ratio Ysutw-5-Nkncvunjx Lucvs-1-Pakzhgpfl (%) Ssvos-3-Zweivnmsk Hfcto-4-Sxcsqcbcm (%) Beta Globulins Beta Globulins (%) Gamma Globulins Gamma Globulins (%) M-Garfield % DARON M-Garfield Free [place] LC, Quant Free Lambda LC, Quant Free [place]/Lambda Ratio Ref Test Comments Direct Antiglob Test Negative 05/17/17 05:37 WBC RBC Hgb Hct MCV MCHC RDW Plt Count MPV Haptoglobin Sodium 138 Potassium 3.6 Chloride 99 Carbon Dioxide 30 Anion Gap 9 BUN 7 D Creatinine 0.4 L D Creat Clearance w eGFR > 60 Random Glucose 80 Calcium 8.3 L Phosphorus 1.0 L* D Magnesium 1.9 Total Bilirubin 0.8 D AST 28 ALT 21 Alkaline Phosphatase 182 H D Prot Electrophoresis Serum Total Protein Total Protein 6.2 L Albumin 2.4 L Globulin Albumin/Globulin Ratio Gjfiw-5-Cebcsrcqx Ppzam-8-Ufuxtdipo (%) Tiicu-4-Thvomsjtl Cebmu-8-Uvqvsztzc (%) Beta Globulins Beta Globulins (%) Gamma Globulins Gamma Globulins (%) M-Garfield % DARON M-Garfield Free [place] LC, Quant Free Lambda LC, Quant Free [place]/Lambda Ratio Ref Test Comments Direct Antiglob Test Active Medications Generic Name Dose Route Start Last Admin Trade Name Freq PRN Reason Stop Dose Admin Benzocaine/Menthol 1 each 05/15/17 21:01 Cepacol Lozenge - MM PRN PRN SORE THROAT Enalapril Maleate 5 mg 05/15/17 22:00 05/17/17 09:42 Vasotec - PO 5 mg BID [facility] Administration Pantoprazole Sodium 100 mls @ 200 mls/hr 05/15/17 22:00 05/17/17 09:42 Protonix 40mg Ivpb (Pre-Docked) IVPB 200 mls/hr BID [facility] Administration Metoprolol Tartrate 25 mg 05/15/17 22:00 05/17/17 09:42 Lopressor - PO 25 mg BID [facility] Administration ASSESSMENT/PLAN: Patient is a 31 year old Female with significant past medical history of anemia (iron deficiency), hemorrhagic ovarian cysts, s/p surgery for perforated gastric ulcer 01/2017 presents to ER with worsening abdominal pain, nausea, and distention over the last 1-2 weeks. # Severe symptomatic anemia (resolving) likely due to chronic GI loss. H/o Perforated gastric ulcers; FOBT- negative; s/p 4 PRBC and 2 FFPs this admission. Today H/H is 10.6/31.8 Patient is medically stable for EGD at this time. Trying to find out the cause of anemia, Jacqueline test pending Free [place] LC quant-elevated LUCIAN 2/bcr/,Hematology consult appreciated # Gastric ulcer s/p garcia patch for perforated gastric ulcer in 2015. Past h/o perforated gastric ulcer s/p surgery 01/2017 GI consult appreciated who recommends; EGD (Trying to reach Dr. Sanchez to ask if EGD can be done tomorrow , PPI) Gastrin level ordered to r/o ZES On IV Protonix Clear liquid IR consulted for possible ascitic tapping. # Chest pain-likely musculoskeletal vs demand ischemia due to severe anemia Troponins x 2 negative ECHO showed: As compared to 04/03/2016 significant increase in the severity of MR and TR. Left ventricle normal in size. Mild pulmonic valvular regurgitation Continue Enalapril 5mg PO BID and Metoprolol 25mg PO BID Cardiology consult appreciated who recommends to repeat an ECHO tomorrow since patient is hemodynamically stable now. Maybe the severe MR and TR could have been due to high cardiac output failure. # Systemic involvement of Connective tissue disease CCP ordered as RF is elevated, r/o anti-phospholipid syndrome, infiltrative disease, sarcoidosis as per Rheum attending. # Less likely Pneumonia Afebrile CT Chest: Atelectasis/Infiltration present at the left base. # Hypokalemia-resolved # Hypophosphatemia: 1 which has been repleted. # Lower Extremity edema-resolved Likely secondary to cardiac cause # H/o hemorrhagic ovarian cyst TVS: Moderate pelvic ascites, no other acute pathology Pelvic MRI pending since CA-125 x 2 is high. # FEN Not on IV fluids Electrolytes to be repeated tomorrow Lactose restricted diet (No fruits and vegetables) # Prophylaxis For DVT: AC contraindicated due to severe anemia For GI; On protonix # Code Status: Full code # Dispo: Admitted in Med-Surg. Duration of stay unknown. Illness, Investigation and Plan of care explained to the patient. She verbalized understanding. Case seen and discussed with Dr. Hood. Visit type - Emergency Visit Emergency Visit: Yes ED Registration Date: 05/13/17 Care time: The patient presented to the Emergency Department on the above date and was hospitalized for further evaluation of their emergent condition. - New Patient This patient is new to me today: No - Critical Care Critical Care patient: No - Discharge Referral Referred to [facility] Med P.C.: No
--- NOTE | 2017-05-17 18:30 | PN ---
Progress Note (short form) - Note Progress Note: PAtient seen and examined Feelss better Last Vital Signs Temp Pulse Resp BP Pulse Ox 98.5 F 95 H 19 117/71 100 05/17/17 14:53 05/17/17 14:53 05/17/17 14:53 05/17/17 14:53 05/17/17 08:55 Cor: RSR, No murmurs, No gallops Lungs: Clear to P&A Abd: Soft, Normal bowel sounds, No organomegaly Ext:No significant edema Abnormal Lab Results 05/13/17 05/15/17 05/15/17 17:15 05:20 05:20 Hgb Hct RDW Creatinine Calcium Phosphorus Magnesium Alkaline Phosphatase Total Protein Albumin 2.6 L Globulin 4.4 H Albumin/Globulin Ratio 0.6 L Dcpye-7-Ayetzvkpo 0.5 H Gamma Globulins 2.0 H Free [place] LC, Quant 31.0 H Antibody Screen Positive H Crossmatch See Detail 05/16/17 05/17/17 05/17/17 18:00 05:37 05:37 Hgb 10.6 L Hct 31.8 L RDW 21.9 H Creatinine 0.4 L D Calcium 8.3 L Phosphorus 1.0 L* D Magnesium 1.7 L D Alkaline Phosphatase 182 H D Total Protein 6.2 L Albumin 2.4 L Globulin Albumin/Globulin Ratio Ttijk-9-Vjiooyetd Gamma Globulins Free [place] LC, Quant Antibody Screen Crossmatch Active Medications Generic Name Dose Route Start Last Admin Trade Name Freq PRN Reason Stop Dose Admin Benzocaine/Menthol 1 each 05/15/17 21:01 Cepacol Lozenge - MM PRN PRN SORE THROAT Enalapril Maleate 5 mg 05/15/17 22:00 05/17/17 09:42 Vasotec - PO 5 mg BID [facility] Administration Pantoprazole Sodium 100 mls @ 200 mls/hr 05/15/17 22:00 05/17/17 09:42 Protonix 40mg Ivpb (Pre-Docked) IVPB 200 mls/hr BID [facility] Administration Metoprolol Tartrate 25 mg 05/15/17 22:00 05/17/17 09:42 Lopressor - PO 25 mg BID [facility] Administration A/P This is a 31-year-old woman with a history of iron-deficiency anemia, depression , HTN, migraine headaches, ovarian cysts who comes to the ER with worsening abdominal distention, lethargy,Hgb of 2.9 Patient had a perforated pyloric channel ulcer s/p garcia patch on 01/23/17 Anemia--microcytic. Also with chronic severe anemia causing rt. heart failure? MCV--79-81 chronic had ferritin of 8 in 08/04 and sat of5% in 02/02 Had a component of iron deficienct h/o perforated PUD for EGDs For MRCP Protein studies neg. 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 She reports that due o her personal family problems she has not kept up with follow up. Reports very poor PO intake for last several months low albumin will check B1/B6 check Epo level check Parvo PCR check LAC profile dose vit. K Anasarca/ascites: ?? rt. heart failure from severe anemia + RF/elevated ESR
[2017-05-17] MEDS ORDERED: ACETAMINOPHEN 325 MG TABLET (FP) PO PRN (19:51)
--- NOTE | 2017-05-17 20:01 | PN ---
GI Progress Note Subjective: tolerated solid food, cleared medically for EGD, MRCP pending - Objective Vital Signs: Vital Signs Temperature 98.5 F 05/17/17 14:53 Pulse Rate 95 H 05/17/17 14:53 Respiratory Rate 19 05/17/17 14:53 Blood Pressure 117/71 05/17/17 14:53 O2 Sat by Pulse Oximetry (%) 100 05/17/17 08:55 Constitutional: Well Nourished Eyes: Yes: Conjunctiva Clear HENT: Yes: Atraumatic Neck: Yes: Trachea Midline Cardiovascular: Yes: Regular Rate and Rhythm ...Palpate: Yes: Soft. No: Firm/Rigid, Guarding, Hepatomegaly, Mass, Pulsatile Mass, Splenomegaly, Tenderness Labs: CBC, BMP 05/17/17 05:37 05/17/17 05:37 INR, PTT INR 1.46 (0.82-1.09) H 05/15/17 06:00 Fibrinogen 247.0 mg/dL (238-498) 05/14/17 05:20 Problem List - Problems (1) Anemia Assessment/Plan: possibly chronic gi bleeding R. if EGD is negative will need colonoscopy and ileoscopy to r/o IBD Code(s): D64.9 - ANEMIA, UNSPECIFIED Qualifiers: Anemia type: iron deficiency Iron deficiency anemia type: chronic blood loss Qualified Code(s): D50.0 - Iron deficiency anemia secondary to blood loss (chronic) (2) Pneumobilia Code(s): K83.8 - OTHER SPECIFIED DISEASES OF BILIARY TRACT
[2017-05-17] MEDS ORDERED: IBUPROFEN 800 MG/8 ML IJ IVPB ONE (21:23)
[2017-05-17] MEDS ORDERED: morphine CARPU-JECT 2 MG/1 ML DISP.SYRIN IVPUSH ONE (23:05)
[2017-05-18 07:40] LABS: MCH 27.9 pg (25.7-33.7); MCHC 32.8 g/dl (32.0-36.0); MEAN CELL VOLUME 84.9 fl (80-96); MEAN PLT VOLUME 8.2 fl (7.5-11.1); PLATELET COUNT 258 K/MM3 (134-434); RDW 22.6 % (11.6-15.6); WHITE BLOOD COUNT 9.1 K/mm3 (4.0-10.0)
[2017-05-18] MEDS ORDERED: PT OWN MED DRAWER 7, Y5N ONE (08:42)
[2017-05-18 08:49] LABS: ALBUMIN 2.3 g/dl (3.4-5.0); ALK PHOS 207 U/L (45-117); ANION GAP 5 (8-16); BILIRUBIN,TOTAL 0.6 mg/dL (0.2-1.0); CALCIUM 8.1 mg/dL (8.5-10.1); CO2 29 mmol/L (21-32); CREATININE 0.4 mg/dL (0.55-1.02); GLUCOSE,RANDOM 93 mg/dL (74-106); MAGNESIUM 1.8 mg/dL (1.8-2.4); SGOT/AST 31 U/L (15-37); SGPT/ALT 20 U/L (12-78); TOT PROT 5.9 g/dl (6.4-8.2)
[2017-05-18 09:14] LABS: PHOSPHOROUS 0.8 mg/dL (2.5-4.9)
[2017-05-18] MEDS: METOPROLOL TARTRATE 25 MG TABLET (FP) PO SCH (09:23)
[2017-05-18] MEDS: ENALAPRIL MALEATE 5 MG TABLET (FP) PO SCH (09:23)
[2017-05-18] MEDS: PANTOPRAZOLE SODIUM 100 ML IVPB SCH (09:23)
[2017-05-18] MEDS ORDERED: PHYTONADIONE 5 MG TABLET PO SCH (10:00)
--- NOTE | 2017-05-18 10:19 | PN ---
Progress Note, Physician History of Present Illness: Dyspnea on exertion and BP control improved. - Current Medication List Current Medications: Active Medications Benzocaine/Menthol (Cepacol Lozenge -) 1 each MM PRN PRN PRN Reason: SORE THROAT Enalapril Maleate (Vasotec -) 5 mg PO BID [facility] Last Admin: 05/18/17 09:23 Dose: 5 mg Pantoprazole Sodium (Protonix 40mg Ivpb (Pre-Docked)) 100 mls @ 200 mls/hr IVPB BID [facility] Last Admin: 05/18/17 09:23 Dose: 200 mls/hr Metoprolol Tartrate (Lopressor -) 25 mg PO BID [facility] Last Admin: 05/18/17 09:23 Dose: 25 mg Phytonadione (Mephyton -) 5 mg PO DAILY [facility] Stop: 05/20/17 10:01 Last Admin: 05/18/17 09:23 Dose: 5 mg - Objective Vital Signs: Vital Signs Temperature 98.5 F 05/18/17 07:39 Pulse Rate 89 05/18/17 07:39 Respiratory Rate 20 05/18/17 07:39 Blood Pressure 117/70 05/18/17 07:39 O2 Sat by Pulse Oximetry (%) 99 05/18/17 07:39 Constitutional: Yes: No Distress, Calm, Thin Neck: Yes: Supple Cardiovascular: Yes: Regular Rate and Rhythm, Murmur (1/6 SM) Respiratory: Yes: Regular, CTA Bilaterally Gastrointestinal: Yes: Normal Bowel Sounds, Soft Edema: No Labs: CBC, BMP 05/18/17 05:35 05/18/17 06:00 INR, PTT INR 1.46 (0.82-1.09) H 05/15/17 06:00 Fibrinogen 247.0 mg/dL (238-498) 05/14/17 05:20 Problem List - Problems (1) Anemia Code(s): D64.9 - ANEMIA, UNSPECIFIED Qualifiers: Anemia type: iron deficiency Iron deficiency anemia type: chronic blood loss Qualified Code(s): D50.0 - Iron deficiency anemia secondary to blood loss (chronic) (2) Hypertension Code(s): I10 - ESSENTIAL (PRIMARY) HYPERTENSION Qualifiers: Hypertension type: essential hypertension Qualified Code(s): I10 - Essential (primary) hypertension (3) Acute diastolic congestive heart failure Code(s): I50.31 - ACUTE DIASTOLIC (CONGESTIVE) HEART FAILURE (4) Severe mitral regurgitation Code(s): I34.0 - NONRHEUMATIC MITRAL (VALVE) INSUFFICIENCY (5) Severe tricuspid regurgitation Code(s): I07.1 - RHEUMATIC TRICUSPID INSUFFICIENCY Assessment/Plan Echocardiography dated 05/14/2017 revealed normal LV size and function with severe MR and TR with moderate degree of pulmonary HTN, no MVP or flail leaflet so etiology of valvular pathology is unclear 1. Acute pulmonary edema related to acute diastolic LV failure referable to valvular pathology MR exacerbated by HTN and severe anemia (high output) resolved 2. Hypertension, hypertensive cardiovascular disease 3. MR, severe in severity etiology of which to be determined, no evidence of MVP or flail leaflets, possible collagen vascular disease or endocarditis 4. TR, severe in severity with moderate degree of pulmonary HTN, RVSP of 52 mmHg 5. Anemia, post transfusion, etiology to be determined 6. Post recent perforated gastric ulcer post Paulie patch repair 01/2017 PLAN: 1. Continue Lopressor 25 bid and vasotec 5 bid 2. Monitor Hg and maintain equal or greater than 8.0 3. Repeat echo to assess degree of valvular abnormality now that BP controlled and anemia has been corrected 4. Await EGD and MRCP now euvolemic
[2017-05-18 14:43] VITALS: BP 136/93; PULSE 88; TEMP 99.3
[2017-05-18] MEDS ORDERED: NAPH,MB-DB/K PH,MBDB POWDER PACKET PO SCH (15:00)
--- NOTE | 2017-05-18 15:04 | PN ---
Physical Exam: SUBJECTIVE: Patient seen and examined at bed side this morning. Wanting to sign out AMA. Explained to the patient the risks of leaving including and patient agreed to stay to perform Echo and EGD. OBJECTIVE: Vital Signs Period Temp Pulse Resp BP Sys/Suárez Pulse Ox Last 24 Hr 96.9 F-99.3 F 88-97 20-20 112-136/65-93 99-100 GENERAL: Young female, lying comfortably in bed, is awake, alert, and fully oriented, in no acute distress. No Gonzalez. HEAD: Normal with no signs of trauma. EYES: EOM intact, slight pallor, no icterus. ENT: Ears normal, moist mucous membranes. NECK: Supple LUNGS: Breath sounds equal, clear to auscultation bilaterally, no wheezes, no crackles, no accessory muscle use. HEART: Tachycardic, Regular rate and rhythm, S1, S2 with systolic murmur. ABDOMEN: Surgical scar isabel, Soft, nontender, nondistended, normoactive bowel sounds, no guarding, no rebound, no hepatosplenomegaly, no masses. EXTREMITIES: UPPER 2+ pulses, warm, well-perfused, no edema. LOWER EXTREMITIES: 2+ pulses, warm, well-perfused, B/L pitting edema-Resolved. NEUROLOGICAL: Cranial nerves II through XII grossly intact. Normal speech, gait not observed. PSYCH: Normal mood, normal affect. SKIN: Warm, dry, normal turgor, no rashes or lesions noted Laboratory Results - last 24 hr 05/16/17 05/16/17 05/18/17 06:45 18:00 05:35 WBC 9.1 RBC 3.60 L 3.34 L Hgb 9.3 L D Hct 28.4 L MCV 84.9 MCHC 32.8 RDW 22.6 H Plt Count 258 MPV 8.2 Retic Count Haptoglobin 193 G6PD RBC Count 276 Sodium Potassium Chloride Carbon Dioxide Anion Gap BUN Creatinine Creat Clearance w eGFR Random Glucose Calcium Phosphorus Magnesium Total Bilirubin AST ALT Alkaline Phosphatase Total Protein Albumin Tiss Transglutamin IgA < 2 05/18/17 05/18/17 06:00 06:00 WBC RBC Hgb Hct MCV MCHC RDW Plt Count MPV Retic Count 3.51 H D Haptoglobin G6PD RBC Count Sodium 140 Potassium 4.4 D Chloride 106 Carbon Dioxide 29 Anion Gap 5 L BUN 8 Creatinine 0.4 L Creat Clearance w eGFR > 60 Random Glucose 93 Calcium 8.1 L Phosphorus 0.8 L* Magnesium 1.8 Total Bilirubin 0.6 D AST 31 ALT 20 Alkaline Phosphatase 207 H Total Protein 5.9 L Albumin 2.3 L Tiss Transglutamin IgA Active Medications Generic Name Dose Route Start Last Admin Trade Name Freq PRN Reason Stop Dose Admin Benzocaine/Menthol 1 each 05/15/17 21:01 Cepacol Lozenge - MM PRN PRN SORE THROAT Enalapril Maleate 5 mg 05/15/17 22:00 05/18/17 09:23 Vasotec - PO 5 mg BID EMILY Administration Pantoprazole Sodium 100 mls @ 200 mls/hr 05/15/17 22:00 05/18/17 09:23 Protonix 40mg Ivpb (Pre-Docked) IVPB 200 mls/hr BID EMILY Administration Metoprolol Tartrate 25 mg 05/15/17 22:00 05/18/17 09:23 Lopressor - PO 25 mg BID EMILY Administration Phytonadione 5 mg 05/18/17 10:00 05/18/17 09:23 Mephyton - PO 05/20/17 10:01 5 mg DAILY EMILY Administration ASSESSMENT/PLAN: Patient is a 31 year old Female with significant past medical history of anemia (iron deficiency), hemorrhagic ovarian cysts, s/p surgery for perforated gastric ulcer 01/2017 presents to ER with worsening abdominal pain, nausea, and distention over the last 1-2 weeks. # Severe symptomatic anemia (resolving) likely due to chronic GI loss. H/o Perforated gastric ulcers; FOBT- negative; s/p 4 PRBC and 2 FFPs this admission. Today H/H is 9.3/28.4 Plan: EGD. Spoke with Dr. Liriano, patient is currently Euvolemic, hemodynamically stable, can proceed with necessary procedure-EGD to evaluate the cause of anemia. Trying to find out the cause of anemia, Jacqueline test pending Free [place] LC quant-elevated LUCIAN 2/bcr/,Hematology consult appreciated # Gastric ulcer s/p garcia patch for perforated gastric ulcer in 2015. Past h/o perforated gastric ulcer s/p surgery 01/2017 GI consult appreciated who recommends; EGD (Trying to reach Dr. Sanchez to ask if EGD can be done tomorrow , PPI) Gastrin level ordered to r/o ZES On IV Protonix Clear liquid IR consulted for possible ascitic tapping. # Chest pain-likely musculoskeletal vs demand ischemia due to severe anemia Troponins x 2 negative ECHO showed: As compared to 04/03/2016 significant increase in the severity of MR and TR. Left ventricle normal in size. Mild pulmonic valvular regurgitation Continue Enalapril 5mg PO BID and Metoprolol 25mg PO BID Cardiology consult appreciated who recommends to repeat an ECHO tomorrow since patient is hemodynamically stable now. Maybe the severe MR and TR could have been due to high cardiac output failure. # Systemic involvement of Connective tissue disease CCP ordered as RF is elevated, r/o anti-phospholipid syndrome, infiltrative disease, sarcoidosis as per Rheum attending. # Less likely Pneumonia Afebrile CT Chest: Atelectasis/Infiltration present at the left base. # Hypokalemia-resolved # Hypophosphatemia: 0.8, which has been repleted. # Lower Extremity edema-resolved Likely secondary to cardiac cause # H/o hemorrhagic ovarian cyst TVS: Moderate pelvic ascites, no other acute pathology Pelvic MRI cancelled. # FEN Not on IV fluids Electrolytes to be repeated tomorrow Lactose restricted diet (No fruits and vegetables) # Prophylaxis For DVT: AC contraindicated due to severe anemia For GI; On protonix # Code Status: Full code # Dispo: Admitted in Med-Surg. Duration of stay unknown. Illness, Investigation and Plan of care explained to the patient. She verbalized understanding. Case seen and discussed with Dr. Hood.
--- NOTE | 2017-05-18 15:06 | PN ---
Progress Note (short form) - Note Progress Note: Patient seen and examined Still with some chest pains and SO. Still with headaches (long standing history of migraines) Last Vital Signs Temp Pulse Resp BP Pulse Ox 99.3 F 88 20 136/93 99 05/18/17 14:00 05/18/17 14:00 05/18/17 14:00 05/18/17 14:00 05/18/17 09:00 Proptosis Lungs -diminished breath sounds Cor _RSR Soft abd No significant LE edema CBC, BMP 05/18/17 05:35 05/18/17 06:00 Current Medications Generic Name Dose Route Start Last Admin Trade Name Freq PRN Reason Stop Dose Admin Benzocaine/Menthol 1 each 05/15/17 21:01 Cepacol Lozenge - MM PRN PRN SORE THROAT Enalapril Maleate 5 mg 05/15/17 22:00 05/18/17 09:23 Vasotec - PO 5 mg BID EMILY Administration Pantoprazole Sodium 100 mls @ 200 mls/hr 05/15/17 22:00 05/18/17 09:23 Protonix 40mg Ivpb (Pre-Docked) IVPB 200 mls/hr BID EMILY Administration Metoprolol Tartrate 25 mg 05/15/17 22:00 05/18/17 09:23 Lopressor - PO 25 mg BID EMILY Administration Phytonadione 5 mg 05/18/17 10:00 05/18/17 09:23 Mephyton - PO 05/20/17 10:01 5 mg DAILY EMILY Administration Potassium Phos/Sodium Phos 1 packet 05/18/17 15:00 Phos-Nak Packet - PO DAILY EMILY Impression Profound anemia_etiology unclear Severe right sided heart disease and valvular MR and TR. For GI work up
--- NOTE | 2017-05-18 17:41 | DS ---
Physical Exam: SUBJECTIVE: Patient seen and examined. Wants to leave. OBJECTIVE: Vital Signs Period Temp Pulse Resp BP Sys/Suárez Pulse Ox Last 24 Hr 96.9 F-99.3 F 88-97 20-20 112-136/65-93 99-100 PHYSICAL EXAM GENERAL: Young female, lying comfortably in bed, is awake, alert, and fully oriented, in no acute distress. No Gonzalez. HEAD: Normal with no signs of trauma. EYES: EOM intact, slight pallor, no icterus. ENT: Ears normal, moist mucous membranes. NECK: Supple LUNGS: Breath sounds equal, clear to auscultation bilaterally, no wheezes, no crackles, no accessory muscle use. HEART: Tachycardic, Regular rate and rhythm, S1, S2 with systolic murmur. ABDOMEN: Surgical scar isabel, Soft, nontender, nondistended, normoactive bowel sounds, no guarding, no rebound, no hepatosplenomegaly, no masses. EXTREMITIES: UPPER 2+ pulses, warm, well-perfused, no edema. LOWER EXTREMITIES: 2+ pulses, warm, well-perfused, B/L pitting edema-Resolved. NEUROLOGICAL: Cranial nerves II through XII grossly intact. Normal speech, gait not observed. PSYCH: Normal mood, normal affect. SKIN: Warm, dry, normal turgor, no rashes or lesions noted LABS Laboratory Results - last 24 hr 05/15/17 05/16/17 05/16/17 05:20 06:45 18:00 WBC RBC 3.60 L Hgb Hct MCV MCHC RDW Plt Count MPV Retic Count Hemoglobin A 98.0 Hemoglobin A2 2.0 Hemoglobin C 0 Hemoglobin S 0 Variant Hemoglobin TNP Hemoglobin Interpret Maternal Rh 0 Hemoglobin Solubility Negative Haptoglobin 193 G6PD RBC Count 276 Sodium Potassium Chloride Carbon Dioxide Anion Gap BUN Creatinine Creat Clearance w eGFR Random Glucose Calcium Phosphorus Magnesium Total Bilirubin AST ALT Alkaline Phosphatase Total Protein Albumin Gastrin 382 H Tiss Transglutamin IgA 05/16/17 05/18/17 05/18/17 18:00 05:35 06:00 WBC 9.1 RBC 3.34 L Hgb 9.3 L D Hct 28.4 L MCV 84.9 MCHC 32.8 RDW 22.6 H Plt Count 258 MPV 8.2 Retic Count Hemoglobin A Hemoglobin A2 Hemoglobin C Hemoglobin S Variant Hemoglobin Hemoglobin Interpret Maternal Rh Hemoglobin Solubility Haptoglobin G6PD RBC Count Sodium 140 Potassium 4.4 D Chloride 106 Carbon Dioxide 29 Anion Gap 5 L BUN 8 Creatinine 0.4 L Creat Clearance w eGFR > 60 Random Glucose 93 Calcium 8.1 L Phosphorus 0.8 L* Magnesium 1.8 Total Bilirubin 0.6 D AST 31 ALT 20 Alkaline Phosphatase 207 H Total Protein 5.9 L Albumin 2.3 L Gastrin Tiss Transglutamin IgA < 2 05/18/17 06:00 WBC RBC Hgb Hct MCV MCHC RDW Plt Count MPV Retic Count 3.51 H D Hemoglobin A Hemoglobin A2 Hemoglobin C Hemoglobin S Variant Hemoglobin Hemoglobin Interpret Maternal Rh Hemoglobin Solubility Haptoglobin G6PD RBC Count Sodium Potassium Chloride Carbon Dioxide Anion Gap BUN Creatinine Creat Clearance w eGFR Random Glucose Calcium Phosphorus Magnesium Total Bilirubin AST ALT Alkaline Phosphatase Total Protein Albumin Gastrin Tiss Transglutamin IgA HOSPITAL COURSE: Date of Admission:05/13/17 Date of Discharge: 05/18/17 Signed out AMA. Patient is a 31 year old Female with significant past medical history of anemia (iron deficiency), hemorrhagic ovarian cysts, s/p surgery for perforated gastric ulcer 01/2017 presents to ER with worsening abdominal pain, nausea, and distention over the last 1-2 weeks. Severe symptomatic anemia (resolving) likely due to chronic GI loss. On arrival , patients Hb was 2. s/p 4 PRBC and 2 FFPs this admission. Today H/H is 9.3/ 28.4.Has h/o Perforated gastric ulcers; FOBT- negative; Trying to find out the cause of anemia, Jacqueline test pending. Free [place] LC quant-elevated LUCIAN 2/ bcr pending. Hematology consulted. Gastric ulcer s/p garcia patch for perforated gastric ulcer in 2015. Past h/o perforated gastric ulcer s/p surgery 01/2017. GI consulted who was planning to do an EGD but patient signed out AMA. Gastrin level ordered to r/o ZES which is elevated to 382. Needs further workup. Chest pain-likely musculoskeletal vs demand ischemia and high cardiac output failure due to severe anemia. Troponins x 2 negative. ECHO showed: As compared to 04/03/2016 significant increase in the severity of MR and TR. Left ventricle normal in size. Mild pulmonic valvular regurgitation. Continue Enalapril 5mg PO BID and Metoprolol 25mg PO BID. Cardiology consult requested who recommended to transfer to a tertiary facility for possible biopsy of the heart. Systemic involvement of Connective tissue disease-High rheumatoid factor. Rheumatology was consulted .CCP ordered as RF is elevated, r/o anti- phospholipid syndrome, infiltrative disease, sarcoidosis. CT Chest: Atelectasis/Infiltration present at the left base. Hypokalemia-resolved after repletion Hypophosphatemia: 0.8, which has been repleted. Lower Extremity edema-resolved. Likely secondary to cardiac cause H/o hemorrhagic ovarian cyst. TVS: Moderate pelvic ascites, no other acute pathology. Pelvic MRI cancelled because apparently patient had some geovany in the GI tract which was CI for an MRI. Given the fact that patient came in with severe anemia, with negative FOBT, needs full work up for an on going loss. Needs an EGD. Her Gastrin level is high , CA-125 x 2 is high, most of the serology were pending. Patient has been explained in detail about the ongoing investigation. Patient verbalized understanding however wanted to leave saying that [place], hence she left the hospital against medical advice. Signed paper is in the chart. Case seen and discussed with Dr. Hood. Minutes to complete discharge: 45 Discharge Summary Reason For Visit: ANEMIA, HYPOKALEMIA Current Active Problems Acute diastolic congestive heart failure (Acute) Edema of lower extremity (Acute) Hypokalemia (Acute) Pelvic ascites (Acute) Pneumobilia (Acute) Anemia (Chronic) Severe mitral regurgitation (Chronic) Severe tricuspid regurgitation (Chronic) Systemic involvement of connective tissue (Chronic) Condition: Guarded - Instructions Diet, Activity, Other Instructions: Patient adamantly refuses hospitalization and wants to leave AMA. Explained to the patient that AMA is dangerous and can lead to worsening of condition, permanent disability and even . I used lay terminology. I answered all questions. Its clear to me that she understands the risks and benefits of continous hospital stay and leaving AMA. She has the capacity to make her own decisions. She agrees to f/u pwith her PMD tomorrow and return to the ED if symptoms worsen. Referrals: Berny Bella MD [Primary Care Provider] - Disposition: AGAINST MEDICAL ADVICE - Home Medications Comprehensive Discharge Medication List: Ambulatory Orders Amox-Tr/K Cl [Augmentin 875-125mg Tablet -] 1 tab PO BID #4 tablet 01/29/17 Ferrous Sulfate [Feosol] 325 mg PO BID #60 01/29/17 Miscellaneous Drug Not In Syst [Outpatient Lab Test] 1 each ASDIR #1 misc Oxycodone HCl/Acetaminophen [Percocet 5-325 mg Tablet] 1 tab PO Q8H #10 tablet MDD 3 tab 01/29/17 Pantoprazole Sodium [Protonix -] 40 mg PO DAILY #30 tablet.ec 01/29/17 This patient is new to me today: No Emergency Visit: Yes ED Registration Date: 05/13/17 Care time: The patient presented to the Emergency Department on the above date and was hospitalized for further evaluation of their emergent condition. Critical Care patient: No - Discharge Referral Referred to [facility] Med [facility] No
--- NOTE | 2017-05-18 19:18 | PN ---
Teaching Attending Note Name of Resident: Darlene Srinivasan ATTENDING PHYSICIAN STATEMENT I saw and evaluated the patient. I reviewed the resident's note and discussed the case with the resident. I agree with the resident's findings and plan as documented. SUBJECTIVE: no pain , did not give any hx . OBJECTIVE: no exam done as she was getting dresses ASSESSMENT AND PLAN: pt declined staying despite the risks of worsening heart failure, GI bleed , worsening anemia and even were explained to her . she verbalized to understand left AMA
[2017-05-19 06:06] LABS: IMMUNOGLOBULIN A QN 218 mg/dL (87-352)
[2017-05-21 16:18] LABS: VIT B1 WHOLE BLD 76.5 nmol/L (66.5-200.0)
== END 2017-05-18 17:36 | disposition left against medical advice (07) | DRG 663 ==
LOC: JER 15:58 → JERBED 19:19 → JICU 20:52 → J4W 05-15 20:33
PROVIDERS: ADMIT Internal Medicine; ATTEND Internal Medicine
PROC: 05HM33Z Insertion of Infusion Device into Right Internal Jugular Vein, Percutaneous Approach (ICD-10-PCS; principal; 2017-05-13)
PROC: 30233K1 Transfusion of Nonautologous Frozen Plasma into Peripheral Vein, Percutaneous Approach (ICD-10-PCS; 2017-05-13)
PROC: 30233N1 Transfusion of Nonautologous Red Blood Cells into Peripheral Vein, Percutaneous Approach (ICD-10-PCS; 2017-05-13)
DX: D50.0 Iron deficiency anemia secondary to blood loss (chronic) (principal); R07.89 Other chest pain; R14.0 Abdominal distension (gaseous); F32.9 Major depressive disorder, single episode, unspecified; F17.210 Nicotine dependence, cigarettes, uncomplicated; E87.6 Hypokalemia; K76.0 Fatty (change of) liver, not elsewhere classified; N83.209 Unspecified ovarian cyst, unspecified side; I10 Essential (primary) hypertension; R60.0 Localized edema; K25.5 Chronic or unspecified gastric ulcer with perforation; D68.8 Other specified coagulation defects; Z91.14 Patient's other noncompliance with medication regimen; I08.1 Rheumatic disorders of both mitral and tricuspid valves; G43.809 Other migraine, not intractable, without status migrainosus; R18.8 Other ascites; I27.2 Other secondary pulmonary hypertension; I11.0 Hypertensive heart disease with heart failure; I50.31 Acute diastolic (congestive) heart failure; K83.8 Other specified diseases of biliary tract; M35.9 Systemic involvement of connective tissue, unspecified; E83.39 Other disorders of phosphorus metabolism; J98.11 Atelectasis
CPT/HCPCS: 36415; 36430; 36600; 71010-TC; 71250-TC; 72192-TC; 74150-TC; 74177-TC; 76830-TC; 80048; 80053; 80076; 80307; 81003; 81015; 82105; 82150; 82272; 82310; 82550; 82553; 82607; 82668; 82728; 82746; 82784; 82803; 82941; 82955; 83010; 83021; 83516; 83540; 83550; 83605; 83615; 83690; 83735; 83883; 84100; 84155; 84165; 84207; 84425; 84439; 84443; 84466; 84481; 84484; 84702; 84703; 85025; 85027; 85041; 85044; 85379; 85384; 85610; 85651; 85660; 85730; 86038; 86140; 86200; 86301; 86304; 86431; 86704; 86706; 86803; 86870; 86880; 86902; 86922; 87040; 87086; 87186; 87340; 87389; 88300-TC; 93005; 93010; 93306-TC; 93970-TC; 99285-25; P9017; P9038; P9058

== ENCOUNTER 2017-05-21 09:21 | Inpatient (IN) | payer OTHER ==
[2017-05-21 09:30] VITALS: BMI 18.7
[2017-05-21] MEDS ORDERED: SODIUM CHLORIDE 1,000 ML IV SCH (10:00)
--- NOTE | 2017-05-21 10:20 | PDOC ---
History of Present Illness - General Chief Complaint: Chest Pain Stated Complaint: CHEST PAIN Time Seen by Provider: 05/21/17 09:37 History Source: Patient Exam Limitations: No Limitations - History of Present Illness Initial Comments: 05/21/17 10:14 The patient is a 31F with a PMH of iron deficiency anemia, hemorrhagic ovarian cysts, and s/p perforated gastric ulcer with complaints of CP and abd pain. She was admitted to [facility] on 05/13 with a Hb of 2.2 and received 4 PRBC's and 22 FFP. On d/c her Hb was 9.3, FOBT negative. Abd/Chest CT showed atelectasis/ infiltrate at L base, hepatomegaly, pneumobilia, and distension. She also had electrolyte abnormalities that were resolved. She left AMA. Today she complains about chest pain and abdominal pain. Her CP is located retrosternally and in her L chest, does not radiate, described as sharp, and comes and goes. She has never had this pain before. The pain is associated with a baseline SOB with exertion, cough, wheezing, and sputum of unknown color. Her abdominal pain is the same as last week's admission but is worsening. She describes it as diffuse , stabbing, radiating to her back, 10/10 in severity and constant. Her LBM was yesterday and is regular. She notes associated nausea, increased urinary frequency, and weight loss since admission d/t lack of oral diet. She denies vomiting, fever, chills, diarrhea, constipation, night sweats, hematuria, hematochezia, change in appetite. Allergies: NKDA PSHx: perforated gastric ulcer repair Social: Smokes 6 cigarettes/day, denies drinking and recreational drugs. Past History - Past Medical History Allergies/Adverse Reactions: Allergies Allergy/AdvReac Type Severity Reaction Status Date / Time No Known Drug Allergies Allergy Verified 05/21/17 09:26 Home Medications: Ambulatory Orders NK [No Known Home Medication] 05/21/17 Anemia: Yes (BLOOD TRANSFUSIONS) Asthma: No Cancer: No Cardiac Disorders: Yes (leaking valve) CVA: No COPD: No CHF: No Dementia: No Diabetes: No GI Disorders: Yes (ABDOMINAL BLOATING/PAIN/WT LOSS SINCE BLDING ULCER) Disorders: No HTN: Yes (BORDERLINE BP AFTER CHILDBIRTH /NO MEDS) Hypercholesterolemia: No Liver Disease: No Psychiatric Problems: Yes (DEPRESSION) Seizures: No Thyroid Disease: No Other medical history: migraines, - Surgical History Abdominal Surgery: Yes Appendectomy: No Cardiac Surgery: No Cholecystectomy: No Lung Surgery: No Neurologic Surgery: No Orthopedic Surgery: No - Family Disease History Family Disease History: Heart Disease: Grandparents - Reproductive History Cervical CA: No Dysfunctional Uterine Bleeding: No Ectopic : No Endometrial CA: No Polycystic Ovaries: No Tubal Ligation: No - Immunization History Immunization Up to Date: Yes - Psycho/Social/Smoking Cessation Hx Anxiety: No Suicidal Ideation: No Smoking History: Current every day smoker Have you smoked in the past 12 months: Yes Number of Cigarettes Smoked Daily: 10 Information on smoking cessation initiated: Yes 'Breaking Loose' booklet given: 05/21/17 Hx Alcohol Use: No Drug/Substance Use Hx: No Substance Use Type: None Hx Substance Use Treatment: No Review of Systems - Review of Systems Able to Perform ROS?: Yes Is the patient limited Bulgarian proficient: No Constitutional: Yes: Loss of Appetite (8 pounds since 05/13/17 admission). No: Chills, Fever, Night Sweats Respiratory: Yes: Cough, Shortness of Breath, SOB with Exertion, Productive cough Cardiac (ROS): Yes: Chest Pain, Edema ABD/GI: Yes: Abdominal Distended, Nausea. No: Abd. Pain w/ defecation, Blood Streaked Bowels, Constipated, Diarrhea, Difficulty Swallowing, Vomiting : Yes: Frequency *Physical Exam - Vital Signs Last Vital Signs Temp Pulse Resp BP Pulse Ox 97.5 F L 125 H 18 141/95 98 05/21/17 09:26 05/21/17 09:26 05/21/17 09:26 05/21/17 09:26 05/21/17 09:26 - Physical Exam General Appearance: Yes: Disheveled, Thin HEENT: positive: Normal Voice. negative: Photophobia Respiratory/Chest: positive: Normal Breath Sounds. negative: Accessory Muscle Use, Labored Respiration, Crackles, Rales, Rhonchi Cardiovascular: positive: Regular Rhythm, Regular Rate, Systolic Murmur Gastrointestinal/Abdominal: positive: Normal Bowel Sounds, Guarding, Tenderness Heart Score/ECG Review - History History: Moderately suspicious - Electrocardiogram EKG: Normal - Risk Factors Risk Factors Heart Score: No Hx Hypercholesterolemia, No Hx Hypertension, Yes Smoking History Based on the list above the patient has:: 1-2 risk factors - ECG Intrepretation Rhythm: Regular Rhythm - Cutler Cutler: Normal - ECG Impressions Tachycardia: Sinus ED Treatment Course - LABORATORY CBC & Chemistry Diagram: 05/21/17 10:00 05/21/17 10:00 Medical Decision Making - Medical Decision Making 05/21/17 10:36 The patient is a 31F with PMH of iron deficiency anemia, hemorrhagic ovarian cysts, s/p perforated gastric ulcer repair who presents to the ED with chest and abdominal pain. The patient was admitted for a Hb of 2.2 on 05/13/17 and left 05/18/17 AMA. She returns with the same abdominal pain but new CP. I have ordered CBC for monitoring of her anemia, CMP including mag and phospate, trops x 3, BNP, CXR, type&screen w/ coags. I will watch for her labs and keep the patient updated. 05/21/17 11:36 Patient's labs have returned with a Hb of 10.2. She has an elevated alk phos and BNP. She is also complaining of worsening pain and was given 2mg morphine with no help. She has also been given 0.5 mg of Dilaudid. I have updated the patient on her plans. 05/21/17 13:33 Patient was updated on status and is being admitted for obs. IM resident wants Chest CTA cancelled and d-dimer ordered. This has been done and she will be moving to obs. *DC/Admit/Observation/Transfer Diagnosis at time of Disposition: Chest pain Qualifiers: Chest pain type: unspecified Qualified Code(s): R07.9 - Chest pain, unspecified - Discharge Dispostion Condition at time of disposition: Stable Admit: Yes Decision to Admit order Date/Time: 05/21/17 13:34 Chest pain monitoring. - Transfer to Acute Care Facility Accepting Physician:: Erwin - Attestations Physician Attestion: 05/21/17 10:39 I, Dr. Dm Modi, attest that this document has been prepared under my direction and personally reviewed by me in its entirety. I further attest, that it accurately reflects all work, treatment, procedures and medical decision -making performed by me. Addendum entered and electronically signed by Dm Modi, RES 05/21/17 15:39 : Progress Note - Progress Note Progress Note: D-Dimer was noted to be elevated at 1056. Admitting physician notified to order chest CTA.
[2017-05-21 10:37] LABS: MCH 27.9 pg (25.7-33.7); MCHC 32.3 g/dl (32.0-36.0); MEAN CELL VOLUME 86.4 fl (80-96); MEAN PLT VOLUME 7.9 fl (7.5-11.1); PLATELET COUNT 313 K/MM3 (134-434); RDW 24.8 % (11.6-15.6); WHITE BLOOD COUNT 9.7 K/mm3 (4.0-10.0)
[2017-05-21 10:54] LABS: INR 1.25 (0.82-1.09); PROTHROMBIN TIME (PATIENT) 13.8 SEC (9.98-11.88)
[2017-05-21 11:02] LABS: ALBUMIN 3.1 g/dl (3.4-5.0); ANION GAP 7 (8-16); BILIRUBIN,TOTAL 0.4 mg/dL (0.2-1.0); CALCIUM 9.2 mg/dL (8.5-10.1); CO2 28 mmol/L (21-32); CREATININE 0.4 mg/dL (0.55-1.02); GLUCOSE,RANDOM 83 mg/dL (74-106); PHOSPHOROUS 1.4 mg/dL (2.5-4.9); SGOT/AST 37 U/L (15-37); SGPT/ALT 29 U/L (12-78); TOT PROT 7.9 g/dl (6.4-8.2)
[2017-05-21 11:05] LABS: ALK PHOS 206 U/L (45-117); TROPONIN I 0.02 ng/ml (0.00-0.05)
[2017-05-21 11:07] LABS: URINE APPEARANCE CLEAR; URINE BILIRUBIN NEGATIVE (NEGATIVE); URINE BLOOD NEGATIVE (NEGATIVE); URINE COLOR STRAW; URINE GLUCOSE (UA) NEGATIVE (NEGATIVE); URINE KETONE NEGATIVE (NEGATIVE); URINE LEUK ESTERASE NEGATIVE (NEGATIVE); URINE NITRITE NEGATIVE (NEGATIVE); URINE PROTEIN NEGATIVE (NEGATIVE); URINE UROBILINOGEN NEGATIVE E.U./dl (0.2-1.0)
[2017-05-21] MEDS ORDERED: morphine CARPU-JECT 2 MG/1 ML DISP.SYRIN IVPUSH ONE (11:08)
[2017-05-21] MEDS ORDERED: morphine CARPU-JECT 2 MG/1 ML DISP.SYRIN ONE (11:10)
[2017-05-21] MEDS ORDERED: HYDROmorphone HCL CARPU-JECT 1 MG/1 ML DISP.SYRIN IVPB ONE (11:32)
--- NOTE | 2017-05-21 11:44 | PDOC ---
Attending Attestation - Resident Resident Name: [email or web address] - ED Attending Attestation I have performed the following: I have examined & evaluated the patient, The case was reviewed & discussed with the resident, I agree w/resident's findings & plan, Exceptions are as noted - HPI HPI: 05/21/17 11:42 31 yo F presenting to the ER with a complaint of chest pain She is s/p admission and AMA Pt was severely anemic She presents to the ER with exertional chest pain, shortness of breath 05/21/17 11:42 - Physicial Exam PE: 05/21/17 11:43 One examination tachycardia no murmur no abd tenderness (+) lower extremity edema - Medical Decision Making 05/21/17 11:43 Will do labs Will do CXR Hydration EKG Re assess Discharge Disposition - Diagnosis Chest pain Qualifiers: Chest pain type: unspecified Qualified Code(s): R07.9 - Chest pain, unspecified - Discharge Dispostion Condition at time of disposition: Stable Last Admission D/C Date: 05/18/17 Admit: Yes
[2017-05-21] MEDS ORDERED: HYDROmorphone HCL CARPU-JECT 1 MG/1 ML DISP.SYRIN ONE (11:59)
--- NOTE | 2017-05-21 12:25 | EKG ---
Test Reason : Blood Pressure : / mmHG Vent. Rate : 121 BPM Atrial Rate : 121 BPM P-R Int : 130 ms QRS Dur : 066 ms QT Int : 340 ms P-R-T Axes : 074 011 086 degrees QTc Int : 482 ms SINUS TACHYCARDIA BIATRIAL ENLARGEMENT CANNOT RULE OUT ANTERIOR INFARCT , AGE UNDETERMINED ABNORMAL ECG WHEN COMPARED WITH ECG OF 13-MAY-2017 16:51, T WAVE INVERSION NO LONGER EVIDENT IN INFERIOR LEADS T WAVE INVERSION LESS EVIDENT IN ANTERIOR LEADS INVERTED T WAVES HAVE REPLACED NONSPECIFIC T WAVE ABNORMALITY IN LATERAL LEADS Confirmed by GLADYS GONZALES, ROXANN ([id number]) on 05/21/2017 12:25:14 PM Referred By: Confirmed By:ROXANN GRAHAM MD
[2017-05-21 12:34] LABS: ANISOCYTOSIS 4+; HYPOCHROMIA 1+; MICROCYTOSIS FEW; PLATELET ESTIMATE ADEQUATE (NORMAL)
--- NOTE | 2017-05-21 14:58 | HP ---
Admitting History and Physical - Primary Care Physician PCP: lisa - Admission Chief Complaint: Chest pain/Abdominal pain History of Present Illness: 31F history of anemia and hemorrhagic ovarian cysts presents to the hospital with a chief complaint of abd pain chest pain and worsening lower extremity edema. Patient states her symptoms have been there since the last time she was admitted and discharged about 1 week ago but have gotten worse. Her Chest pain does not radiate and has no association with movement or breathing. when she has these episodes she states they last for about 5 minutes. She also endorses shortness of breath. She denies vomiting fevers or chills. Her chest pain and exercise tolerance has worsened per patient. of note during the interview of the patient she answered the same questions at different times with much different answers. History Source: Patient Limitations to Obtaining History: No Limitations - Past Medical History Reproductive: Yes: Other (hemmorhagic ovarian cysts) ...LMP: 01/04/17 Heme/Onc: Yes: Anemia (Iron deficiency) Psych: Yes: Depression - Past Surgical History Additional Past Surgical History: Paulie patch repair - Smoking History Smoking history: Current every day smoker Have you smoked in the past 12 months: Yes Aproximately how many cigarettes per day: 10 - Alcohol/Substance Use Hx Alcohol Use: No History of Substance Use: reports: None - Social History ADL: Independent History of Recent Travel: No Home Medications - Allergies Allergies/Adverse Reactions: Allergies Allergy/AdvReac Type Severity Reaction Status Date / Time No Known Drug Allergies Allergy Verified 05/21/17 09:26 - Home Medications Home Medications: Ambulatory Orders NK [No Known Home Medication] 05/21/17 Family Disease History - Family Disease History Family Disease History: Other: Mother (anemia) Review of Systems - Review of Systems Constitutional: reports: No Symptoms Eyes: reports: No Symptoms HENT: reports: No Symptoms Neck: reports: No Symptoms Cardiovascular: reports: Chest Pain, Edema, Palpitations, Shortness of Breath Respiratory: reports: Cough (productive), Exercise Intolerance (worsening). denies: Hemoptysis, Wheezing Gastrointestinal: reports: Abdominal Pain Genitourinary: reports: No Symptoms Breasts: reports: No Symptoms Reported Musculoskeletal: reports: Extremity Pain Integumentary: reports: No Symptoms Neurological: reports: No Symptoms Endocrine: reports: No Symptoms Hematology/Lymphatic: reports: No Symptoms Psychiatric: reports: No Symptoms Physical Examination Vital Signs: Vital Signs Temperature 97.5 F L 05/21/17 09:26 Pulse Rate 125 H 05/21/17 09:26 Respiratory Rate 18 05/21/17 09:26 Blood Pressure 141/95 05/21/17 09:26 O2 Sat by Pulse Oximetry (%) 98 05/21/17 09:26 Constitutional: Yes: Well Nourished, No Distress Eyes: Yes: Conjunctiva Clear. No: Sclera Icterus HENT: Yes: Atraumatic, Normocephalic Neck: Yes: Supple, Trachea Midline Cardiovascular: Yes: Tachycardia, Murmur (2/0 systolic murmur best heard at RUSB ), S1, S2 Respiratory: Yes: Regular, CTA Bilaterally. No: Accessory Muscle Use Gastrointestinal: Yes: Normal Bowel Sounds, Soft. No: Distention, Tenderness, Tenderness, Rebound, Vomiting ...Rectal Exam: Yes: Other (refused) Renal/: No: WNL Musculoskeletal: Yes: Other (above ankle tendrenss bilaterally) Edema: LLE: 2+ (pitting ), RLE: 2+ (pitting ) Peripheral Pulses WNL: Yes Wound/Incision: Yes: Clean/Dry (well healed) ...Motor Strength: WNL Psychiatric: Yes: Alert, Oriented Imaging - Results Chest X-ray: Report Reviewed, Image Reviewed Assessment/Plan 31F Presents to the hospital with chest pain and abdominal pain with associated lower extremity edema admit to telemetry inpatient Atypical chest pain-R/O ACS Trend troponins negative so far r/o PE - D Dimer elevated will DO CTA Acute on chronic CHF exacerbation/cardiomyopathy-possible post possible viral restart enalapril lasix I/O Telemetry Beta jess after diuresis Abd pain-PPI pain control PRN Hypophosphatemia-replete with neutrophos and trend anemia Transfuse PRN GI for EGD stool for occult blood x3 Trend CBC hemorrhagic ovarian cyst-MRI pelvis to r/o Ca given elevated Ca-125 Stop IVF Sodium controlled diet Full H&P to follow by admitting team Visit type - Emergency Visit Emergency Visit: Yes ED Registration Date: 05/21/17 Care time: The patient presented to the Emergency Department on the above date and was hospitalized for further evaluation of their emergent condition. - New Patient This patient is new to me today: Yes Date on this admission: 05/21/17 - Critical Care Critical Care patient: No
[2017-05-21] MEDS ORDERED: FUROSEMIDE 40 MG/4 ML INJECTABLE VIAL IVPUSH ONE (16:00)
--- NOTE | 2017-05-21 16:19 | HP ---
CHIEF COMPLAINT: Chest pain and shortness of breath PCP: Samuel HISTORY OF PRESENT ILLNESS: 31yo F with PMHx of severe Fe defic anemia, duodenal ulcer s/p gram patch repair , hemorrhagic ovarian cyst, systolic heart failure, and recent admission for similar complaints on 05/13/17 (left AMA) presents to ED with CP and shortness of breath since yesterday afternoon. CP is sharp, left sided, nonradiating, and constant. It was associated with shortness of breath and decreased exercise tolerance. The patient states that the chest pain is also associated with generalized upper abdominal pain as well as headache, dizziness (lightheadedness ), and nausea. The patient also states she has a cough productive of sputum, which she described as clear and green. The patient denies fever, chills, vomiting, blood in her urine or stool, difficulty eating or drinking, and change in bowel habits. ER course was notable for: (1) Pain control (2) EKG (3) IVF Recent Travel: Denies PAST MEDICAL HISTORY: Iron deficiency anemia, duodenal ulcer s/p gram patch repair, hemorrhagic ovarian cyst, systolic heart failure, severe anemia. PAST SURGICAL HISTORY: Social History: Smokin cigarettes/d Alcohol: denies Drugs: denies Family History: Anemia in her mother Allergies No Known Drug Allergies Allergy (Verified 05/21/17 09:26) HOME MEDICATIONS: Home Medications Medication Instructions Recorded NK [No Known Home Medication] 05/21/17 REVIEW OF SYSTEMS CONSTITUTIONAL: Absent: fever, chills, diaphoresis, generalized weakness, malaise, loss of appetite, weight change HEENT: Absent: rhinorrhea, nasal congestion, throat pain, throat swelling, difficulty swallowing, mouth swelling, ear pain, eye pain, visual changes CARDIOVASCULAR: chest pain, peripheral edema Absent: syncope, palpitations, irregular heart rate, lightheadedness, RESPIRATORY: cough, shortness of breath, dyspnea with exertion Absent: , orthopnea, wheezing, stridor, hemoptysis GASTROINTESTINAL: Absent: abdominal pain, abdominal distension, nausea, vomiting, diarrhea, constipation, melena, hematochezia GENITOURINARY: Absent: dysuria, frequency, urgency, hesitancy, hematuria, flank pain, genital pain MUSCULOSKELETAL: Absent: myalgia, arthralgia, joint swelling, back pain, neck pain SKIN: Absent: rash, itching, pallor HEMATOLOGIC/IMMUNOLOGIC: Absent: easy bleeding, easy bruising, lymphadenopathy, frequent infections ENDOCRINE: Absent: unexplained weight gain, unexplained weight loss, heat intolerance, cold intolerance NEUROLOGIC: Absent: headache, focal weakness or paresthesias, dizziness, unsteady gait, seizure, mental status changes, bladder or bowel incontinence PSYCHIATRIC: Absent: anxiety, depression, suicidal or homicidal ideation, hallucinations. PHYSICAL EXAMINATION GENERAL: Awake, alert, and fully oriented, in no acute distress. HEAD: Normal with no signs of trauma. EYES: Pupils equal, round and reactive to light, extraocular movements intact, sclera anicteric, conjunctiva clear. No lid lag. EARS, NOSE, THROAT: Ears normal, nares patent, oropharynx clear without exudates. Moist mucous membranes. NECK: Normal range of motion, supple without lymphadenopathy, JVD, or masses. LUNGS: Breath sounds equal, clear to auscultation bilaterally. No wheezes, and no crackles. No accessory muscle use. HEART: Regular rate and rhythm, normal S1 and S2 without murmur, rub or gallop. ABDOMEN: Soft, nontender, not distended, normoactive bowel sounds, no guarding, no rebound, no masses. No hepatomegaly or splenomegaly. MUSCULOSKELETAL: Normal range of motion at all joints. No bony deformities or tenderness. No CVA tenderness. UPPER EXTREMITIES: 2+ pulses, warm, well-perfused. No cyanosis. No clubbing. No peripheral edema. LOWER EXTREMITIES: 2+ pulses, warm, well-perfused. No calf tenderness. No peripheral edema. NEUROLOGICAL: Cranial nerves II-XII intact. Normal speech. Normal gait. PSYCHIATRIC: Cooperative. Good eye contact. Appropriate mood and affect. SKIN: Warm, dry, normal turgor, no rashes or lesions noted, normal capillary refill. ASSESSMENT/PLAN: 31yo F with PMHx of severe Fe defic anemia, duodenal ulcer s/p gram patch repair , hemorrhagic ovarian cyst, systolic heart failure, and recent admission for similar complaints on 05/13/17 (left AMA) presents to ED with CP and shortness of breath since yesterday afternoon.\ #Atypical Chest pain -R/o ACS -Trop neg x1. Will trend -EKG neg for acs -R/o PE -D dimer pos (7686) -CTA ordered -R/o PNA -Symptoms inconsistent -no evidence on CXR -WBC wnl #Acute on Chronic syst and diastolic CHF exacerbation in setting of severe valvular disease -BNP >7000 -CXR no acute pathology -Previous TTE showed mildly dilated atria, severe TR MR, mildly reduced RV fxn, and mild global systolic LV hypokinesis -s/p Lasix IV 40 in ed -Enalapril 5 BID -fluid restriction, strict I and O -daily weights -add Beta jess once euvolemic -previous suspicion of connective tissue d/o by Rheum Dr Menchaca, unable to perform cards MRI due to Gi clips; discussed cardiac biopsy. #Normocytic Anemia in setting of gastric ulcer history -Hgb <3 on last adm s/p transfusion; w/u by Dr Conrad -Hb 10.5, Hct 32.6 -f/u B12, folate -r/o ZES (Gastrin 382) -GI consult for EGD -PPI -FOBT daily x3 days #Hemorrhagic ovarian cyst -CA-125 elevated at 54 on prev visit -Previous abd/pelvic CT with contrast and TVS neg for intra-abdominal pathology #Rheumatoid -RF high, r/o anti-phospholipid syndrome, infiltrative disease, sarcoidosis as per Rheum attending -CCP neg #Hypophosphatemia -Neutra-phos x2 #DVT ppx -SCD -Heparin held d/t bleed risk FEN fluid restrict repleting phos Na controlled diet Dispo: adm tele. Problem List - Problem (1) Chest pain Code(s): R07.9 - CHEST PAIN, UNSPECIFIED Qualifiers: Chest pain type: unspecified Qualified Code(s): R07.9 - Chest pain, unspecified (2) Abdominal pain Code(s): R10.9 - UNSPECIFIED ABDOMINAL PAIN Qualifiers: Abdominal location: lower abdomen, unspecified Qualified Code(s): R10.30 - Lower abdominal pain, unspecified (3) Acute diastolic congestive heart failure Code(s): I50.31 - ACUTE DIASTOLIC (CONGESTIVE) HEART FAILURE (4) Edema of lower extremity Code(s): R60.0 - LOCALIZED EDEMA (5) Anemia Code(s): D64.9 - ANEMIA, UNSPECIFIED Qualifiers: Anemia type: iron deficiency Iron deficiency anemia type: chronic blood loss Qualified Code(s): D50.0 - Iron deficiency anemia secondary to blood loss (chronic) (6) Severe mitral regurgitation Code(s): I34.0 - NONRHEUMATIC MITRAL (VALVE) INSUFFICIENCY (7) Severe tricuspid regurgitation Code(s): I07.1 - RHEUMATIC TRICUSPID INSUFFICIENCY (8) Systemic involvement of connective tissue Code(s): M35.9 - SYSTEMIC INVOLVEMENT OF CONNECTIVE TISSUE, UNSPECIFIED Visit type - Emergency Visit Emergency Visit: Yes ED Registration Date: 05/21/17 Care time: The patient presented to the Emergency Department on the above date and was hospitalized for further evaluation of their emergent condition. - New Patient This patient is new to me today: Yes Date on this admission: 05/21/17 - Critical Care Critical Care patient: No
--- NOTE | 2017-05-21 16:25 | PN ---
Teaching Attending Note Name of Resident: Taras Mata ATTENDING PHYSICIAN STATEMENT I saw and evaluated the patient. I reviewed the resident's note and discussed the case with the resident. I agree with the resident's findings and plan as documented. 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 She left AMA few days ago and since then has developed LE edema . alecia rebollar had acute episode fo CP , sharp, in middle and to left side and constant , associated with SOB. has cough with clear sputum. Developed abd pain last night in epigastrum and b/l upper quadrants . Has no melena or BRBPR. now cp and Abd pain resolved. She noticed LE edema with no erythema. She has not been using ASA after last admission. OBJECTIVE: NAD , no LAP in neck , MMM, no JVD . 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 1- Lower extremity edema, due to acute on chronic systolic heart failure. last echo few days ago with mildly reduced EF, and severe MR and severe TR. no need to repeat . - Give 40 of IV lasix, monitor I&O and weight ( diuresed 5 liters last admission with 40 of lasix ) - will determine tomorrow the dose of lasix - Resume enalapril 5 BID - will start Coreg tomorrow when volume status is improved - Further cardiac w/u to determine etiology of Cardiomyopathy to be d/w Card ( CMP, inflammatory causes, viral etiology, CAD , etc ) 2- Chest pain: uncertain of etiology. PE although not high on DDx, with WELLS of 3 , and elevated DDimer of 1000 needs to be r/o . ACS is unlikely with no acute ischemic changes and nl trop MS is possible - check CTA - monitor trop 3- Normocytic anemia : uclear etiology. last admission iron studies were not very helpful as done after trasnfusion . slow GI bleed in DDx with h/o PUD and chronci ASA use. BM suppression is in DDx. malignancy in DDX ( elevated CA125 - repeat iron studies - no need for transfusion - invite GI for EGD after euvolemia is achieved . - can;t obtaim MRI of pelvis as has geovany. will d/w Radiology. - although gastrin level is elevated, but this can be elevated if on PPI which she was. will d/w GI regarding possibility of Chang Redd's - PPI 4- hypomagnesemia : replete dispo : [facility] , tele
[2017-05-21] MEDS ORDERED: FUROSEMIDE 40 MG/4 ML INJECTABLE VIAL ONE (18:22)
[2017-05-21] MEDS: PANTOPRAZOLE 40 MG TABLET (FP) PO SCH (18:28)
[2017-05-21] MEDS: oxyCODONE HCL 5 MG TABLET PO PRN (18:50)
[2017-05-21] MEDS: ACETAMINOPHEN 325 MG TABLET (FP) PO PRN (18:54)
--- NOTE | 2017-05-21 19:31 | PN ---
Progress Note (short form) - Note Progress Note: This patient is known to me from her previous admission. She left AMA on 05/17 Patient seen, chart reviewed. Full consult in AM FF
[2017-05-21 20:20] LABS: TROPONIN I 0.02 ng/ml (0.00-0.05)
--- NOTE | 2017-05-21 20:40 | HOSP ---
Subjective - Review of Symptoms Subjective: Pt. with complaint of chest pain and abdominal pain, non-radiating Abdominal pain, marielena-epigastric Physical: VS: 140/96 rr18 HR 109 GEN: NAD, Able to speak full sentences HEENT: NCAT, PERRL CARD: S tach, S1, S2 RESP: Decreased breath sounds bases bilaterallu ABD: Soft non- distended, mid-line scar, BS presen EXT: +2 Pitting Edema bilaterally CBCD WBC 9.7 K/mm3 (4.0-10.0) 05/21/17 10:00 RBC 3.77 M/mm3 (3.60-5.2) 05/21/17 10:00 Hgb 10.5 GM/dL (10.7-15.3) L D 05/21/17 10:00 Hct 32.6 % (32.4-45.2) 05/21/17 10:00 MCV 86.4 fl (80-96) 05/21/17 10:00 MCHC 32.3 g/dl (32.0-36.0) 05/21/17 10:00 RDW 24.8 % (11.6-15.6) H 05/21/17 10:00 Plt Count 313 K/MM3 (134-434) D 05/21/17 10:00 MPV 7.9 fl (7.5-11.1) 05/21/17 10:00 CMP Sodium 141 mmol/L (136-145) 05/21/17 10:00 Potassium 4.3 mmol/L (3.5-5.1) 05/21/17 10:00 Chloride 106 mmol/L (98-107) 05/21/17 10:00 Carbon Dioxide 28 mmol/L (21-32) 05/21/17 10:00 Anion Gap 7 (8-16) L 05/21/17 10:00 BUN 5 mg/dL (7-18) L D 05/21/17 10:00 Creatinine 0.4 mg/dL (0.55-1.02) L 05/21/17 10:00 Creat Clearance w eGFR > 60 (>60) 05/21/17 10:00 Random Glucose 83 mg/dL (74-106) 05/21/17 10:00 Calcium 9.2 mg/dL (8.5-10.1) 05/21/17 10:00 Total Bilirubin 0.4 mg/dL (0.2-1.0) D 05/21/17 10:00 AST 37 U/L (15-37) 05/21/17 10:00 ALT 29 U/L (12-78) D 05/21/17 10:00 Alkaline Phosphatase 206 U/L (45-117) H 05/21/17 10:00 Total Protein 7.9 g/dl (6.4-8.2) D 05/21/17 10:00 Albumin 3.1 g/dl (3.4-5.0) L D 05/21/17 10:00 CARDIAC ENZYMES Creatine Kinase 61 IU/L (26-192) 05/21/17 19:00 Troponin I 0.02 ng/ml (0.00-0.05) 05/21/17 19:00 CTA- Pending EKG: S Tach 108, LVH A/P.) Chest Pain/Abdominal Pain - Follow repeat trop - 02 2L NC - KUB - Monitor on tele - Pain control - Will follow Physical Examination Vital Signs: Vital Signs Temperature 98.4 F 05/21/17 20:00 Pulse Rate 136 H 05/21/17 20:00 Respiratory Rate 18 05/21/17 20:00 Blood Pressure 135/95 05/21/17 20:00 O2 Sat by Pulse Oximetry (%) 99 05/21/17 18:32
--- NOTE | 2017-05-21 20:40 | HOSP ---
Subjective - Review of Symptoms Events since last encounter: I was paged by nurse in 4s due chest pain and abdominal pain, non-radiating Abdominal pain, marielena-epigastric 8/10 in severity. General: Yes: Fatigue, Malaise. No: Chills, Night Sweats HEENT: No: Head Aches, Visual Changes, Eye Pain, Ear Pain, Dysphasia, Sinus Congestion, Post Nasal Drip, Sore Throat Pulmonary: Yes: Cough Cardiovascular: Yes: Chest Pain (non radiating), Edema (+2 B/L LE ) Gastrointestinal: Yes: Abdominal Pain (epigastric). No: Nausea, Vomiting, Diarrhea, Constipation, Melena, Hematochezia Genitourinary: No: Dysuria, Frequency, Incontinence, Hematuria, Retention Musculoskeletal: Yes: No Symptoms Neurological: No: Weakness, Numbness, Incoordination, Change in speech, Confusion, Seizures Physical Examination Vital Signs: Vital Signs Temperature 98.4 F 05/21/17 20:00 Pulse Rate 136 H 05/21/17 20:00 Respiratory Rate 18 05/21/17 20:00 Blood Pressure 135/95 05/21/17 20:00 O2 Sat by Pulse Oximetry (%) 99 05/21/17 18:32 Constitutional: Yes: Anxious, Mild Distress. No: Diaphoresis, Obese Eyes: Yes: Conjunctiva Clear, EOM Intact. No: Ptosis, Sclera Icterus HENT: Yes: Atraumatic, Normocephalic. No: Nasal Congestion, Rhinnorhea, Thrush Neck: Yes: Supple, Trachea Midline. No: Lymphadenopathy Cardiovascular: Yes: Tachycardia, Murmur (2/6), S1, S2 Respiratory: Yes: Cough, Diminished (B/L at lung bases). No: Rhonchi, SOB Gastrointestinal: Yes: Normal Bowel Sounds, Soft, Tenderness, Epigastrium. No: Ascites, Distention, Hematemesis, Hemorrhoids, Hepatomegaly, Hernia, Melena, Palpable Mass, Rectal Bleeding, Splenomegaly Renal/: No: Hematuria, Incontinence, Polyuria, Musculoskeletal: No: Back Pain, Joint Stiffness Extremities: No: Calf Tenderness, Cold, Cyanosis, Deformity Edema: Yes (+2 B/L LE) Edema: LLE: 2+, RLE: 2+ Peripheral Pulses WNL: Yes Peripheral Pulses: Left Radial: 2+, Right Radial: 2+, Left Doralis Pedis: 2+, Right Dorsalis Pedis: 2+, Left Femoral: 2+ Integumentary: Yes: Other (abdominal surgical scar) Neurological: Yes: Alert, Oriented. No: Confusion, Facial Droop, Loss of Sensation, Numbness, Seizure, Tingling ...Motor Strength: WNL Psychiatric: Yes: Alert, Oriented. No: Suicidal Ideation Labs: Troponin, BNP 05/21/17 05/21/17 10:00 19:00 Troponin I 0.02 0.02 B-Natriuretic Peptide 7344.56 H CBC,CMP WBC 9.7 K/mm3 (4.0-10.0) 05/21/17 10:00 RBC 3.77 M/mm3 (3.60-5.2) 05/21/17 10:00 Hgb 10.5 GM/dL (10.7-15.3) L D 05/21/17 10:00 Hct 32.6 % (32.4-45.2) 05/21/17 10:00 MCV 86.4 fl (80-96) 05/21/17 10:00 MCHC 32.3 g/dl (32.0-36.0) 05/21/17 10:00 RDW 24.8 % (11.6-15.6) H 05/21/17 10:00 Plt Count 313 K/MM3 (134-434) D 05/21/17 10:00 MPV 7.9 fl (7.5-11.1) 05/21/17 10:00 Neutrophils % 75.0 % (42.8-82.8) 05/21/17 10:00 Lymphocytes % 10.0 % (8-40) D 05/21/17 10:00 Monocytes % 13.0 % (3.8-10.2) H D 05/21/17 10:00 Eosinophils % 1.0 % (0-4.5) 05/21/17 10:00 Basophils % 1.0 % (0-2.0) 05/21/17 10:00 Differential Comment Manual diff done 05/21/17 10:00 Platelet Estimate Adequate (NORMAL) 05/21/17 10:00 Hypochromic-Microcytic 1+ 05/21/17 10:00 Anisocytosis 4+ 05/21/17 10:00 Microcytosis Few 05/21/17 10:00 Macrocytosis 2+ 05/21/17 10:00 Sodium 141 mmol/L (136-145) 05/21/17 10:00 Potassium 4.3 mmol/L (3.5-5.1) 05/21/17 10:00 Chloride 106 mmol/L (98-107) 05/21/17 10:00 Carbon Dioxide 28 mmol/L (21-32) 05/21/17 10:00 Anion Gap 7 (8-16) L 05/21/17 10:00 BUN 5 mg/dL (7-18) L D 05/21/17 10:00 Creatinine 0.4 mg/dL (0.55-1.02) L 05/21/17 10:00 Creat Clearance w eGFR > 60 (>60) 05/21/17 10:00 Random Glucose 83 mg/dL (74-106) 05/21/17 10:00 Calcium 9.2 mg/dL (8.5-10.1) 05/21/17 10:00 Phosphorus 1.4 mg/dL (2.5-4.9) L D 05/21/17 10:00 Magnesium 2.0 mg/dL (1.8-2.4) 05/21/17 10:00 Total Bilirubin 0.4 mg/dL (0.2-1.0) D 05/21/17 10:00 AST 37 U/L (15-37) 05/21/17 10:00 ALT 29 U/L (12-78) D 05/21/17 10:00 Alkaline Phosphatase 206 U/L (45-117) H 05/21/17 10:00 Creatine Kinase 61 IU/L (26-192) 05/21/17 19:00 Troponin I 0.02 ng/ml (0.00-0.05) 05/21/17 19:00 B-Natriuretic Peptide 7344.56 pg/ml (5-125) H 05/21/17 10:00 Total Protein 7.9 g/dl (6.4-8.2) D 05/21/17 10:00 Albumin 3.1 g/dl (3.4-5.0) L D 05/21/17 10:00 Serum , Qual Negative 05/21/17 10:00 Hospitalist Encounter Assessment: 31 y/o lady with h/o migraines , Iorn def anemia , 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 I saw thispatient around7.30 due non radiating chest pain and marielena epigastric abdominal pain exacerbated by food.. CTA- negative for PE EKG: S Tach 108, LVH A/P.) Chest Pain/Abdominal Pain - second trop is negative will Follow third trop - 02 2L NC - F/U KUB result which showed no acute pathology. - Monitor on tele - Pain control - Will follow Visit type - Emergency Visit Emergency Visit: Yes ED Registration Date: 05/21/17 Care time: The patient presented to the Emergency Department on the above date and was hospitalized for further evaluation of their emergent condition. - New Patient This patient is new to me today: Yes Date on this admission: 05/25/17 - Critical Care Critical Care patient: Yes Total Critical Care Time (in minutes): 35 Critical Care Statement: The care of this patient involved high complexity decision making to prevent further life threatening deterioration of the patient 's condition and/or to evalute & treat vital organ system(s) failure or risk of failure.
[2017-05-21] MEDS ORDERED: PROCHLORPERAZINE INJECTION 10 MG/2 ML VIAL IVPB ONE (21:30)
[2017-05-21] MEDS ORDERED: MAG HYDROX/AL HYDROX/SIMETH 30 ML UNIT-DOSE CUP PO PRN (21:35)
[2017-05-21] MEDS: NAPH,MB-DB/K PH,MBDB POWDER PACKET PO SCH (21:56)
[2017-05-21] MEDS ORDERED: ENALAPRIL MALEATE 5 MG TABLET (FP) PO SCH (22:00)
[2017-05-22 01:33] LABS: TROPONIN I 0.03 ng/ml (0.00-0.05)
[2017-05-22 07:22] LABS: BASOPHIL 1.3 % (0-2.0); EOSINOPHIL 1.8 % (0-4.5); MCHC 32.9 g/dl (32.0-36.0); MEAN PLT VOLUME 8.1 fl (7.5-11.1); NEUTROPHILS 69.6 % (42.8-82.8); PLATELET COUNT 307 K/MM3 (134-434); RDW 25.2 % (11.6-15.6); WHITE BLOOD COUNT 7.3 K/mm3 (4.0-10.0)
[2017-05-22 07:47] LABS: ANION GAP 9 (8-16); CO2 26 mmol/L (21-32); CREATININE 0.3 mg/dL (0.55-1.02); GLUCOSE,RANDOM 79 mg/dL (74-106)
[2017-05-22 07:48] LABS: FERRITIN 61.947 ng/ml (6.9-282.5)
[2017-05-22 07:50] LABS: ALBUMIN 3.1 g/dl (3.4-5.0); ANION GAP 10 (8-16); BILIRUBIN,TOTAL 0.8 mg/dL (0.2-1.0); CALCIUM 9.2 mg/dL (8.5-10.1); CO2 26 mmol/L (21-32); CREATININE 0.3 mg/dL (0.55-1.02); GLUCOSE,RANDOM 79 mg/dL (74-106); PHOSPHOROUS 4.8 mg/dL (2.5-4.9); SGOT/AST 28 U/L (15-37); SGPT/ALT 28 U/L (12-78)
[2017-05-22 08:03] LABS: ALK PHOS 174 U/L (45-117); TOT PROT 7.7 g/dl (6.4-8.2)
[2017-05-22] MEDS ORDERED: FUROSEMIDE 40 MG/4 ML INJECTABLE VIAL IVPUSH ONE ×2 (08:35→15:00)
[2017-05-22] MEDS: NAPH,MB-DB/K PH,MBDB POWDER PACKET PO SCH (09:21)
[2017-05-22] MEDS: PANTOPRAZOLE 40 MG TABLET (FP) PO SCH (09:21)
[2017-05-22] MEDS: VALSARTAN 80 MG TABLET (UD) PO SCH (09:21)
--- NOTE | 2017-05-22 11:23 | CON.CARD ---
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 She left AMA few days ago without meds and since then has developed LE edema, chest pressure, associated with SOB, cough with clear sputum. Developed abd pain last night in epigastrum and b/l upper quadrants . Has no melena or BRBPR. now cp and Abd pain resolved. She noticed LE edema with no erythema improving with diuresis. She has not been using ASA after last admission. She denies near or true syncope, palpitations, orthopnea or PND. - History Source History Provided By: Patient Limitations to Obtaining History: No Limitations - Past Medical History Cardio/Vascular: Yes: HTN ...LMP: 01/04/17 Psych: Yes: Depression Additional Medical History: Anemia. Depression not on meds - Alcohol/Substance Use Hx Alcohol Use: No History of Substance Use: reports: None - Smoking History Smoking history: Current every day smoker Have you smoked in the past 12 months: Yes Aproximately how many cigarettes per day: 10 - Social History ADL: Independent History of Recent Travel: No Home Medications - Allergies Allergies/Adverse Reactions: Allergies Allergy/AdvReac Type Severity Reaction Status Date / Time No Known Drug Allergies Allergy Verified 05/21/17 09:26 - Home Medications Home Medications: Ambulatory Orders NK [No Known Home Medication] 05/21/17 Family Disease History - Family Disease History Family Disease History: Other: Mother (anemia) Review of Systems - Review of Systems Cardiovascular: reports: Chest Pain, Shortness of Breath Vital Signs: Vital Signs Temperature 98.3 F 05/22/17 05:00 Pulse Rate 120 H 05/22/17 09:00 Respiratory Rate 18 05/22/17 09:00 Blood Pressure 154/99 05/22/17 09:00 O2 Sat by Pulse Oximetry (%) 100 05/22/17 09:00 Constitutional: Yes: No Distress, Calm, Thin Neck: Yes: Supple Respiratory: Yes: Regular, CTA Bilaterally Gastrointestinal: Yes: Normal Bowel Sounds, Soft Cardiovascular: Yes: Tachycardia Heart Sounds: Yes: S1, S2 Murmur: Yes: Systolic Murmur, Grade 2 Edema: No - Other Data Labs, Other Data: CBC, BMP 05/22/17 05:35 05/22/17 05:35 INR, PTT INR 1.25 (0.82-1.09) H 05/21/17 10:00 Troponin, BNP 05/21/17 05/22/17 19:00 00:53 Troponin I 0.02 0.03 Troponin, BNP 05/21/17 05/22/17 19:00 00:53 Troponin I 0.[address] @ 108 LVH Ejection Fraction %: LVEF > or = 40 % Imaging - Results Cat Scan: Report Reviewed (No PE) Problem List - Problems (1) Chest pain Code(s): R07.9 - CHEST PAIN, UNSPECIFIED Qualifiers: Chest pain type: precordial pain Qualified Code(s): R07.2 - Precordial pain (2) Acute diastolic congestive heart failure Code(s): I50.31 - ACUTE DIASTOLIC (CONGESTIVE) HEART FAILURE (3) Anemia Code(s): D64.9 - ANEMIA, UNSPECIFIED Qualifiers: Anemia type: iron deficiency Iron deficiency anemia type: chronic blood loss Qualified Code(s): D50.0 - Iron deficiency anemia secondary to blood loss (chronic) (4) Severe mitral regurgitation Code(s): I34.0 - NONRHEUMATIC MITRAL (VALVE) INSUFFICIENCY (5) Severe tricuspid regurgitation Code(s): I07.1 - RHEUMATIC TRICUSPID INSUFFICIENCY (6) Hypertensive cardiomegaly with heart failure Code(s): I11.0 - HYPERTENSIVE HEART DISEASE WITH HEART FAILURE (7) Perforated gastric ulcer Code(s): K25.5 - CHRONIC OR UNSPECIFIED GASTRIC ULCER WITH PERFORATION Qualifiers: Gastric ulcer chronicity: chronic Qualified Code(s): K25.5 - Chronic or unspecified gastric ulcer with perforation Assessment/Plan Echocardiography dated 05/14/2017 revealed normal LV size and function with severe MR and TR with moderate degree of pulmonary HTN, no MVP or flail leaflet so etiology of valvular pathology is unclear 05/18/2017 Mild LV and RV decreased fxn, mild JAMES, severe MR, TR, mild AR 1. Acute diastolic LV failure referable to valvular pathology MR exacerbated by HTN 2. Hypertension, hypertensive cardiovascular disease 3. MR, severe in severity etiology of which to be determined, no evidence of MVP or flail leaflets, possible collagen vascular disease or endocarditis 4. TR, severe in severity with moderate degree of pulmonary HTN, RVSP of 52 mmHg 5. Severe anemia, post transfusion, etiology to be determined 6. Post recent perforated gastric ulcer post Paulie patch repair 01/2017 PLAN: 1. IV diuresis with monitor renal fxn, electrolytes and diuretic response 2. Start carvedilol 6.25 bid, Diovan 80 qd and spirinolactone 25 2. Monitor Hg and maintain equal or greater than 8.0 4. Await EGD and MRCP once euvolemic 5. Thank you for consultative opportunity
[2017-05-22] MEDS: CARVEDILOL 6.25 MG TABLET (FP) PO SCH ×2 (12:21→21:32)
[2017-05-22] MEDS: SPIRONOLACTONE 25 MG TABLET (FP) PO SCH (12:21)
--- NOTE | 2017-05-22 12:22 | CON.GI ---
Consult Consult Specialty:: GI Referred by:: Hospitalist Reason for Consultation:: abdominal pain - History of Present Illness Chief Complaint: abdominal and chest pain, and LE edema History of Present Illness: 31 F known to myself at which time she was admitted with a Hgb of 2. EGD was planned but the patient left AMA on the day of the EGD. She now returns with severe abdominal pain and chest pain with new LE edema. At this time,Hgb 10. 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 - History Source History Provided By: Medical Record Limitations to Obtaining History: Poor Historian - Past Medical History Cardio/Vascular: Yes: HTN Gastrointestinal: Yes: Peptic Ulcer Disease ...LMP: 01/04/17 Heme/Onc: Yes: Anemia, Sickle Cell Trait Psych: Yes: Depression Additional Medical History: Anemia. Depression not on meds - Alcohol/Substance Use Hx Alcohol Use: No History of Substance Use: reports: None - Smoking History Smoking history: Current every day smoker Have you smoked in the past 12 months: Yes Aproximately how many cigarettes per day: 10 - Social History Usual Living Arrangement: With Significant Other ADL: Independent History of Recent Travel: No Home Medications - Allergies Allergies/Adverse Reactions: Allergies Allergy/AdvReac Type Severity Reaction Status Date / Time No Known Drug Allergies Allergy Verified 05/21/17 09:26 - Home Medications Home Medications: Ambulatory Orders NK [No Known Home Medication] 05/21/17 Family Disease History - Family Disease History Family Disease History: Other: Mother (anemia) Physical Exam-GI Vital Signs: Vital Signs Temperature 98.3 F 05/22/17 05:00 Pulse Rate 120 H 05/22/17 09:00 Respiratory Rate 18 05/22/17 09:00 Blood Pressure 154/99 05/22/17 09:00 O2 Sat by Pulse Oximetry (%) 100 05/22/17 09:00 Constitutional: Yes: Anxious, Moderate Distress, Thin HENT: Yes: Normocephalic Cardiovascular: Yes: Tachycardia Respiratory: Yes: Regular Gastrointestinal Inspection: Yes: WNL ...Auscultate: Yes: Hypoactive Bowel Sounds ...Palpate: Yes: Soft, Tenderness (diffuse) Edema: LLE: 3+, RLE: 3+ Labs: CBC, BMP 05/22/17 05:35 05/22/17 05:35 INR, PTT INR 1.25 (0.82-1.09) H 05/21/17 10:00 Hepatic Panel Total Bilirubin 0.8 mg/dL (0.2-1.0) D 05/22/17 05:35 AST 28 U/L (15-37) D 05/22/17 05:35 ALT 28 U/L (12-78) 05/22/17 05:35 Alkaline Phosphatase 174 U/L (45-117) H 05/22/17 05:35 Albumin 3.1 g/dl (3.4-5.0) L 05/22/17 05:35 INR, PTT INR 1.25 (0.82-1.09) H 05/21/17 10:00 Imaging - Results X-ray: Report Reviewed (Large amount of retained stool) Assessment/Plan 31 F with above history admitted with chest and abd pain. Poss intestinal angina secondary to low flow state. No colitis symptoms, no bloody stools Air in biliary tree and PD likely related to prior gastro-duodenal surgery Hgb stable-11 Rec: Careful IVF in context of heart failure IV AbRx serum lactic acid CK neg Clear liquid diet EGD likely AM Constipation-start laxatives and enemas. Avoid stimulant laxatives if ischemia is possible
--- NOTE | 2017-05-22 12:27 | PN ---
Progress Note (short form) - Note Progress Note: Subjective: no fever or chills , has no abd pain , denies any CP . last night had abd pain Objective: Vital Signs: Last Vital Signs Temp Pulse Resp BP Pulse Ox 98.3 F 120 H 18 154/99 100 05/22/17 05:00 05/22/17 09:00 05/22/17 09:00 05/22/17 09:00 05/22/17 09:00 Intake & Output 05/19/17 05/20/17 05/21/17 05/22/17 23:59 23:59 23:59 23:59 Intake Total 20 Output Total 600 Balance 20 -600 Weight 96 lb 86 lb Laboratory Results - last 24 hr 05/21/17 05/21/17 05/21/17 10:00 10:55 12:51 WBC 9.7 RBC 3.77 Hgb 10.5 L D Hct 32.6 MCV 86.4 MCHC 32.3 RDW 24.8 H Plt Count 313 D MPV 7.9 Neutrophils % 75.0 Lymphocytes % 10.0 D Monocytes % 13.0 H D Eosinophils % 1.0 Basophils % 1.0 Differential Comment Manual diff done Platelet Estimate Adequate Hypochromic-Microcytic 1+ Anisocytosis 4+ Microcytosis Few Macrocytosis 2+ D-Dimer 1056 H Sodium Potassium Chloride Carbon Dioxide Anion Gap BUN Creatinine Creat Clearance w eGFR Random Glucose Calcium Phosphorus Magnesium Ferritin Total Bilirubin AST ALT Alkaline Phosphatase Creatine Kinase Troponin I Total Protein Albumin Vitamin B12 Serum Folate Urine Color Straw Urine Appearance Clear Urine pH 8.0 Ur Specific [place] 1.015 Urine Protein Negative Urine Glucose (UA) Negative Urine Ketones Negative Urine Blood Negative Urine Nitrite Negative Urine Bilirubin Negative Urine Urobilinogen Negative Ur Leukocyte Esterase Negative 05/21/17 05/22/17 05/22/17 19:00 00:53 05:35 WBC 7.3 RBC 3.93 Hgb 11.0 Hct 33.4 MCV 85.0 MCHC 32.9 RDW 25.2 H Plt Count 307 MPV 8.1 Neutrophils % 69.6 Lymphocytes % 16.0 D Monocytes % 11.3 H Eosinophils % 1.8 Basophils % 1.3 Differential Comment Platelet Estimate Hypochromic-Microcytic Anisocytosis Microcytosis Macrocytosis D-Dimer Sodium Potassium Chloride Carbon Dioxide Anion Gap BUN Creatinine Creat Clearance w eGFR Random Glucose Calcium Phosphorus Magnesium Ferritin Total Bilirubin AST ALT Alkaline Phosphatase Creatine Kinase 61 43 Troponin I 0.02 0.03 Total Protein Albumin Vitamin B12 Serum Folate Urine Color Urine Appearance Urine pH Ur Specific [place] Urine Protein Urine Glucose (UA) Urine Ketones Urine Blood Urine Nitrite Urine Bilirubin Urine Urobilinogen Ur Leukocyte Esterase 05/22/17 05/22/17 05/22/17 05:35 05:35 05:35 WBC RBC Hgb Hct MCV MCHC RDW Plt Count MPV Neutrophils % Lymphocytes % Monocytes % Eosinophils % Basophils % Differential Comment Platelet Estimate Hypochromic-Microcytic Anisocytosis Microcytosis Macrocytosis D-Dimer Sodium 137 137 Potassium 4.1 4.1 Chloride 101 102 Carbon Dioxide 26 26 Anion Gap 10 9 BUN 5 L 5 L Creatinine 0.3 L D 0.3 L Creat Clearance w eGFR > 60 Random Glucose 79 79 Calcium 9.2 9.0 Phosphorus 4.8 D Magnesium 2.0 Ferritin 61.947 Total Bilirubin 0.8 D AST 28 D ALT 28 Alkaline Phosphatase 174 H Creatine Kinase Troponin I Total Protein 7.7 Albumin 3.1 L Vitamin B12 Cancelled 1712 H Serum Folate 10 D Urine Color Urine Appearance Urine pH Ur Specific [place] Urine Protein Urine Glucose (UA) Urine Ketones Urine Blood Urine Nitrite Urine Bilirubin Urine Urobilinogen Ur Leukocyte Esterase Physical Exam: NAD , no LAP in neck , MMM, no JVD . EOMI CV: RRR, 2/6 SM at RUSB Lungs: CTAB Abd:Soft, no TTp in ABD Ext: 2+ pitting edema over Legs and feet, no erythema ASSESSMENT AND PLAN: 31 y/o lady with h/o migraines , Iorn def anemia , 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 1- Acute on chronic systolic heart failure. last echo with reduced EF, and severe MR and severe TR. no need to repeat . - give 20 mg of IV lasix daily and monitor I&O - cont valsartan . - coreg and aldactone started - tachycardia is likely due to heart failure 2- Atypical Chest pain: uncertain of etiology. resolved - CTA neg , neg trop . no further w/u 3- Normocytic anemia : uclear etiology. last admission iron studies were not very helpful as done after trasnfusion . slow GI bleed in DDx with h/o PUD and chronic ASA use. BM suppression is in DDx. malignancy in DDX ( elevated CA125 ) - repeat iron studies pending - no need for transfusion now - GI consult pending - can;t obtaim MRI of pelvis as has geovany. will d/w Radiology. - although gastrin level is elevated, but this can be elevated if on PPI which she was. will d/w GI regarding possibility of Chang Redd's - PPI HLOC Visit type - Emergency Visit Emergency Visit: Yes ED Registration Date: 05/21/17 Care time: The patient presented to the Emergency Department on the above date and was hospitalized for further evaluation of their emergent condition. - New Patient This patient is new to me today: No - Critical Care Critical Care patient: No
[2017-05-22] MEDS: PANTOPRAZOLE SODIUM 100 ML IVPB SCH ×2 (13:40→21:32)
--- NOTE | 2017-05-22 13:49 | EKG ---
Test Reason : Blood Pressure : / mmHG Vent. Rate : 108 BPM Atrial Rate : 108 BPM P-R Int : 130 ms QRS Dur : 070 ms QT Int : 372 ms P-R-T Axes : 069 007 085 degrees QTc Int : 498 ms SINUS TACHYCARDIA RIGHT ATRIAL ENLARGEMENT LVH BY VOLTAGE CRITERIA NONSPECIFIC ST AND T WAVE ABNORMALITY ABNORMAL ECG WHEN COMPARED WITH ECG OF 21-MAY-2017 09:28, T WAVES ARE UPRIGHT IN V2 Confirmed by TAWNY BECKER MD ([id number] on 05/22/2017 1:49:22 PM Referred By: Confirmed By:TAWNY BECKER MD
[2017-05-22] MEDS: Methylnaltrexone Bromide 12 MG/0.6 ML KIT SQ SCH (14:32)
[2017-05-22 17:11] LABS: URINE MARIJUANA THC NEGATIVE ng/ml (CUTOFF=50)
[2017-05-22] MEDS: ACETAMINOPHEN 325 MG TABLET (FP) PO PRN (21:40)
[2017-05-22] MEDS: oxyCODONE HCL 5 MG TABLET PO PRN (21:41)
[2017-05-22] MEDS ORDERED: ZOLPIDEM TARTRATE 5 MG TABLET PO ONE (23:59)
[2017-05-23 06:05] LABS: SERUM IRON 29 ug/dL (27-159); TOTAL IRON BINDING CAPACITY 354 ug/dL (250-450); UIBC 325 ug/dL (131-425)
[2017-05-23 06:49] LABS: MCH 27.5 pg (25.7-33.7); MCHC 32.5 g/dl (32.0-36.0); MEAN CELL VOLUME 84.7 fl (80-96); MEAN PLT VOLUME 8.1 fl (7.5-11.1); PLATELET COUNT 320 K/MM3 (134-434); RDW 25.4 % (11.6-15.6); WHITE BLOOD COUNT 5.2 K/mm3 (4.0-10.0)
[2017-05-23] MEDS ORDERED: PT OWN MED DRAWER 7, Y5N ONE (09:18)
[2017-05-23] MEDS: Methylnaltrexone Bromide 12 MG/0.6 ML KIT SQ SCH (09:29)
[2017-05-23] MEDS: SPIRONOLACTONE 25 MG TABLET (FP) PO SCH (09:29)
[2017-05-23] MEDS: PANTOPRAZOLE SODIUM 100 ML IVPB SCH ×2 (09:29→20:59)
[2017-05-23] MEDS: FUROSEMIDE 40 MG/4 ML INJECTABLE VIAL IVPUSH SCH (09:29)
[2017-05-23] MEDS: VALSARTAN 80 MG TABLET (UD) PO SCH (09:29)
[2017-05-23] MEDS: CARVEDILOL 6.25 MG TABLET (FP) PO SCH ×2 (09:29→20:59)
--- NOTE | 2017-05-23 11:18 | PN ---
Progress Note, Physician History of Present Illness: Sxs improving with diuresis and afterload reduction. - Current Medication List Current Medications: Active Medications Acetaminophen (Tylenol -) 650 mg PO Q4H PRN PRN Reason: PAIN LEVEL 1-5 Last Admin: 05/22/17 21:40 Dose: 650 mg Al Hydroxide/Mg Hydroxide (Mylanta Oral Suspension -) 30 ml PO Q6H PRN PRN Reason: DYSPEPSIA Carvedilol (Coreg -) 6.25 mg PO BID [facility] Last Admin: 05/23/17 09:29 Dose: 6.25 mg Furosemide (Lasix Injection -) 20 mg IVPUSH DAILY [facility] Last Admin: 05/23/17 09:29 Dose: 20 mg Pantoprazole Sodium (Protonix 40mg Ivpb (Pre-Docked)) 100 mls @ 200 mls/hr IVPB BID [facility] Last Admin: 05/23/17 09:29 Dose: 200 mls/hr Lactulose (Cephulac (Oral Use)) 20 gm PO TID PRN PRN Reason: CONSTIPATION Methylnaltrexone [place] (Relistor -) 12 mg SQ DAILY [facility] Last Admin: 05/23/17 09:29 Dose: 12 mg Oxycodone HCl (Roxicodone -) 5 mg PO Q4H PRN PRN Reason: PAIN LEVEL 6-10 Last Admin: 05/22/17 21:41 Dose: 5 mg Spironolactone (Aldactone -) 25 mg PO DAILY [facility] Last Admin: 05/23/17 09:29 Dose: 25 mg Valsartan (Diovan -) 80 mg PO DAILY [facility] Last Admin: 05/23/17 09:29 Dose: 80 mg - Objective Vital Signs: Vital Signs Temperature 97.8 F 05/23/17 09:37 Pulse Rate 92 H 05/23/17 09:37 Respiratory Rate 16 05/23/17 09:37 Blood Pressure 126/90 05/23/17 09:37 O2 Sat by Pulse Oximetry (%) 99 05/22/17 20:42 Constitutional: Yes: No Distress, Calm, Thin Neck: Yes: Supple Cardiovascular: Yes: Regular Rate and Rhythm, Murmur (2/6 SM) Respiratory: Yes: Regular, Diminished Gastrointestinal: Yes: Normal Bowel Sounds, Soft Edema: No Labs: CBC, BMP 05/23/17 05:48 05/22/17 05:35 INR, PTT INR 1.25 (0.82-1.09) H 05/21/17 10:00 Problem List - Problems (1) Chest pain Code(s): R07.9 - CHEST PAIN, UNSPECIFIED Qualifiers: Chest pain type: precordial pain Qualified Code(s): R07.2 - Precordial pain (2) Acute diastolic congestive heart failure Code(s): I50.31 - ACUTE DIASTOLIC (CONGESTIVE) HEART FAILURE (3) Anemia Code(s): D64.9 - ANEMIA, UNSPECIFIED Qualifiers: Anemia type: iron deficiency Iron deficiency anemia type: chronic blood loss Qualified Code(s): D50.0 - Iron deficiency anemia secondary to blood loss (chronic) (4) Severe mitral regurgitation Code(s): I34.0 - NONRHEUMATIC MITRAL (VALVE) INSUFFICIENCY (5) Severe tricuspid regurgitation Code(s): I07.1 - RHEUMATIC TRICUSPID INSUFFICIENCY (6) Hypertensive cardiomegaly with heart failure Code(s): I11.0 - HYPERTENSIVE HEART DISEASE WITH HEART FAILURE (7) Perforated gastric ulcer Code(s): K25.5 - CHRONIC OR UNSPECIFIED GASTRIC ULCER WITH PERFORATION Qualifiers: Gastric ulcer chronicity: chronic Qualified Code(s): K25.5 - Chronic or unspecified gastric ulcer with perforation Assessment/Plan Echocardiography dated 05/14/2017 revealed normal LV size and function with severe MR and TR with moderate degree of pulmonary HTN, no MVP or flail leaflet so etiology of valvular pathology is unclear 05/18/2017 Mild LV and RV decreased fxn, mild JAMES, severe MR, TR, mild AR 1. Acute diastolic LV failure referable to valvular pathology MR exacerbated by HTN improving 2. Hypertension, hypertensive cardiovascular disease 3. MR, severe in severity etiology of which to be determined, no evidence of MVP or flail leaflets 4. TR, severe in severity with moderate degree of pulmonary HTN, RVSP of 52 mmHg 5. Severe anemia, post transfusion, etiology to be determined 6. Post recent perforated gastric ulcer post Paulie patch repair 01/2017 PLAN: 1. IV diuresis with monitor renal fxn, electrolytes and diuretic response 2. Continue carvedilol 6.25 bid, increase Diovan 80 qd and spirinolactone 25 2. Monitor Hg and maintain equal or greater than 8.0 4. Await EGD , IV Protonix
[2017-05-23] MEDS ORDERED: VALSARTAN 80 MG TABLET (UD) PO ONE (12:07)
[2017-05-23] MEDS: ACETAMINOPHEN 325 MG TABLET (FP) PO PRN ×2 (12:29→17:41)
[2017-05-23] MEDS: oxyCODONE HCL 5 MG TABLET PO PRN ×2 (12:29→17:40)
--- NOTE | 2017-05-23 15:24 | PN ---
Physical Exam: SUBJECTIVE: Patient seen and examined OBJECTIVE: Vital Signs Period Temp Pulse Resp BP Sys/Suárez Pulse Ox Last 24 Hr 97.7 F-100.0 F 92-117 16-118 111-126/70-90 99-99 GENERAL: The patient is awake, alert, and fully oriented, in no acute distress. HEAD: Normal with no signs of trauma. EYES: PERRL, extraocular movements intact, sclera anicteric, conjunctiva clear. No ptosis. ENT: Ears normal, nares patent, oropharynx clear without exudates, moist mucous membranes. NECK: Trachea midline, full range of motion, supple. LUNGS: Breath sounds equal, clear to auscultation bilaterally, no wheezes, no crackles, no accessory muscle use. HEART: Regular rate and rhythm, S1, S2 without murmur, rub or gallop. ABDOMEN: Soft, nontender, nondistended, normoactive bowel sounds, no guarding, no rebound, no hepatosplenomegaly, no masses. EXTREMITIES: 2+ pulses, warm, well-perfused, no edema. NEUROLOGICAL: Cranial nerves II through XII grossly intact. Normal speech, gait not observed. PSYCH: Normal mood, normal affect. SKIN: Warm, dry, normal turgor, no rashes or lesions noted Laboratory Results - last 24 hr 05/22/17 05/22/17 05/22/17 05:35 15:00 15:10 WBC RBC Hgb Hct MCV MCHC RDW Plt Count MPV Iron 29 TIBC 354 Iron Saturation 8 L Stool Occult Blood Negative Opiates Screen Negative Methadone Screen Negative Barbiturate Screen Negative Phencyclidine Screen Negative Ur Amphetamines Screen Negative MDMA (Ecstasy) Screen Negative Benzodiazepines Screen Negative Cocaine Screen Negative U Marijuana (THC) Screen Negative 05/23/17 05:48 WBC 5.2 RBC 3.56 L Hgb 9.8 L D Hct 30.2 L MCV 84.7 MCHC 32.5 RDW 25.4 H Plt Count 320 MPV 8.1 Iron TIBC Iron Saturation Stool Occult Blood Opiates Screen Methadone Screen Barbiturate Screen Phencyclidine Screen Ur Amphetamines Screen MDMA (Ecstasy) Screen Benzodiazepines Screen Cocaine Screen U Marijuana (THC) Screen Active Medications Generic Name Dose Route Start Last Admin Trade Name Freq PRN Reason Stop Dose Admin Acetaminophen 650 mg 05/21/17 18:35 05/23/17 12:29 Tylenol - PO 650 mg Q4H PRN Administration PAIN LEVEL 1-5 Al Hydroxide/Mg Hydroxide 30 ml 05/21/17 21:35 Mylanta Oral Suspension - PO Q6H PRN DYSPEPSIA Carvedilol 6.25 mg 05/22/17 12:15 05/23/17 09:29 Coreg - PO 6.25 mg BID EMILY Administration Furosemide 20 mg 05/23/17 10:00 05/23/17 09:29 Lasix Injection - IVPUSH 20 mg DAILY EMILY Administration Pantoprazole Sodium 100 mls @ 200 mls/hr 05/22/17 13:30 05/23/17 09:29 Protonix 40mg Ivpb (Pre-Docked) IVPB 200 mls/hr BID EMILY Administration Lactulose 20 gm 05/22/17 13:19 Cephulac (Oral Use) PO TID PRN CONSTIPATION Methylnaltrexone [place] 12 mg 05/22/17 14:00 05/23/17 09:29 Relistor - SQ 12 mg DAILY EMILY Administration Oxycodone HCl 5 mg 05/21/17 18:35 05/23/17 12:29 Roxicodone - PO 5 mg Q4H PRN Administration PAIN LEVEL 6-10 Spironolactone 25 mg 05/22/17 12:15 05/23/17 09:29 Aldactone - PO 25 mg DAILY EMILY Administration Valsartan 160 mg 05/24/17 10:00 Diovan - PO DAILY [facility] ASSESSMENT/PLAN: 31 y/o F 31yo F with PMHx of severe Fe defic anemia, duodenal ulcer s/p gram patch repair, hemorrhagic ovarian cyst, systolic heart failure who presented to hospital with chest and abdominal pain. #Atypical Chest pain -R/o ACS -Trop neg x3 -EKG neg for acs -R/o PE -D dimer pos (2176) -CTA neg -R/o PNA -Symptoms inconsistent -no evidence on CXR -WBC wnl #Acute on Chronic syst and diastolic CHF exacerbation in setting of severe valvular disease -BNP >7000 -CXR no acute pathology -Previous TTE showed mildly dilated atria, severe TR MR, mildly reduced RV fxn, and mild global systolic LV hypokinesis -s/p Lasix IV 40 in ed -Coreg 6.25mg PO BID, Diovan 160mg PO Daily -fluid restriction, strict I and O -daily weights -previous suspicion of connective tissue d/o by Rheum Dr Menchaca, unable to perform cards MRI due to Gi clips; discussed cardiac biopsy. #Normocytic Anemia in setting of gastric ulcer history -Hgb <3 on last adm s/p transfusion; w/u by Dr Conrad -Hb 9.8, Hct 30.2 -B12 1712, folate 10 -r/o ZES (Gastrin 382) -GI consult for EGD -PPI -FOBT daily x3 days -ve x 1 #Hemorrhagic ovarian cyst -CA-125 elevated at 56 on prev visit -Previous abd/pelvic CT with contrast and TVS neg for intra-abdominal pathology - F/U KUB result which showed no acute pathology. #Rheumatoid -RF high, r/o anti-phospholipid syndrome, infiltrative disease, sarcoidosis as per Rheum attending -CCP neg #Hypophosphatemia -Neutra-phos x2 #DVT ppx -SCD -Heparin held d/t bleed risk #FEN -fluid restrict -repleting phos -Na controlled diet #Dispo: adm tele. Problem List - Problems (1) Chest pain Code(s): R07.9 - CHEST PAIN, UNSPECIFIED Qualifiers: Chest pain type: precordial pain Qualified Code(s): R07.2 - Precordial pain (2) Abdominal pain Code(s): R10.9 - UNSPECIFIED ABDOMINAL PAIN Qualifiers: Abdominal location: lower abdomen, unspecified Qualified Code(s): R10.30 - Lower abdominal pain, unspecified (3) Acute diastolic congestive heart failure Code(s): I50.31 - ACUTE DIASTOLIC (CONGESTIVE) HEART FAILURE (4) Edema of lower extremity Code(s): R60.0 - LOCALIZED EDEMA (5) Anemia Code(s): D64.9 - ANEMIA, UNSPECIFIED Qualifiers: Anemia type: iron deficiency Iron deficiency anemia type: chronic blood loss Qualified Code(s): D50.0 - Iron deficiency anemia secondary to blood loss (chronic) (6) Severe mitral regurgitation Code(s): I34.0 - NONRHEUMATIC MITRAL (VALVE) INSUFFICIENCY (7) Severe tricuspid regurgitation Code(s): I07.1 - RHEUMATIC TRICUSPID INSUFFICIENCY (8) Systemic involvement of connective tissue Code(s): M35.9 - SYSTEMIC INVOLVEMENT OF CONNECTIVE TISSUE, UNSPECIFIED Visit type - Emergency Visit Emergency Visit: No - New Patient This patient is new to me today: No - Critical Care Critical Care patient: No - Discharge Referral Referred to [facility] Med P.C.: No
--- NOTE | 2017-05-23 18:23 | PN ---
Teaching Attending Note Name of Resident: Taras Mata ATTENDING PHYSICIAN STATEMENT I saw and evaluated the patient. I reviewed the resident's note and discussed the case with the resident. I agree with the resident's findings and plan as documented. SUBJECTIVE: Patient is comfortable, denies shortness of breath, no nausea or vomiting OBJECTIVE: Vital Signs Temperature 97.6 F 05/23/17 18:11 Pulse Rate 83 05/23/17 18:11 Respiratory Rate 18 05/23/17 18:11 Blood Pressure 101/65 05/23/17 18:11 O2 Sat by Pulse Oximetry (%) 99 05/23/17 09:35 PE: per resident's note CVS: positive RIVERA 2/6 LE: no edema bl, positive for pulses CBCD WBC 5.2 K/mm3 (4.0-10.0) 05/23/17 05:48 RBC 3.56 M/mm3 (3.60-5.2) L 05/23/17 05:48 Hgb 9.8 GM/dL (10.7-15.3) L D 05/23/17 05:48 Hct 30.2 % (32.4-45.2) L 05/23/17 05:48 MCV 84.7 fl (80-96) 05/23/17 05:48 MCHC 32.5 g/dl (32.0-36.0) 05/23/17 05:48 RDW 25.4 % (11.6-15.6) H 05/23/17 05:48 Plt Count 320 K/MM3 (134-434) 05/23/17 05:48 MPV 8.1 fl (7.5-11.1) 05/23/17 05:48 CMP Sodium 137 mmol/L (136-145) 05/22/17 05:35 Potassium 4.1 mmol/L (3.5-5.1) 05/22/17 05:35 Chloride 102 mmol/L (98-107) 05/22/17 05:35 Carbon Dioxide 26 mmol/L (21-32) 05/22/17 05:35 Anion Gap 9 (8-16) 05/22/17 05:35 BUN 5 mg/dL (7-18) L 05/22/17 05:35 Creatinine 0.3 mg/dL (0.55-1.02) L 05/22/17 05:35 Creat Clearance w eGFR > 60 (>60) 05/22/17 05:35 Random Glucose 79 mg/dL (74-106) 05/22/17 05:35 Calcium 9.0 mg/dL (8.5-10.1) 05/22/17 05:35 Total Bilirubin 0.8 mg/dL (0.2-1.0) D 05/22/17 05:35 AST 28 U/L (15-37) D 05/22/17 05:35 ALT 28 U/L (12-78) 05/22/17 05:35 Alkaline Phosphatase 174 U/L (45-117) H 05/22/17 05:35 Total Protein 7.7 g/dl (6.4-8.2) 05/22/17 05:35 Albumin 3.1 g/dl (3.4-5.0) L 05/22/17 05:35 CARDIAC ENZYMES Creatine Kinase 43 IU/L (26-192) 05/22/17 00:53 Troponin I 0.03 ng/ml (0.00-0.05) 05/22/17 00:53 Current Medications Generic Name Dose Route Start Last Admin Trade Name Freq PRN Reason Stop Dose Admin Acetaminophen 650 mg 05/21/17 18:35 05/23/17 17:41 Tylenol - PO 650 mg Q4H PRN Administration PAIN LEVEL 1-5 Al Hydroxide/Mg Hydroxide 30 ml 05/21/17 21:35 Mylanta Oral Suspension - PO Q6H PRN DYSPEPSIA Carvedilol 6.25 mg 05/22/17 12:15 05/23/17 09:29 Coreg - PO 6.25 mg BID EMILY Administration Docusate Sodium 100 mg 05/23/17 17:45 Colace - PO DAILY EMILY Furosemide 20 mg 05/23/17 10:00 05/23/17 09:29 Lasix Injection - IVPUSH 20 mg DAILY EMILY Administration Pantoprazole Sodium 100 mls @ 200 mls/hr 05/22/17 13:30 05/23/17 09:29 Protonix 40mg Ivpb (Pre-Docked) IVPB 200 mls/hr BID EMILY Administration Dextrose/Sodium Chloride 1,000 mls @ 42 mls/hr 05/24/17 00:01 D5-Ns - IV ASDIR EMILY Lactulose 20 gm 05/22/17 13:19 Cephulac (Oral Use) PO TID PRN CONSTIPATION Methylnaltrexone [place] 12 mg 05/22/17 14:00 05/23/17 09:29 Relistor - SQ 12 mg DAILY EMILY Administration Oxycodone HCl 5 mg 05/21/17 18:35 05/23/17 17:40 Roxicodone - PO 5 mg Q4H PRN Administration PAIN LEVEL 6-10 Spironolactone 25 mg 05/22/17 12:15 05/23/17 09:29 Aldactone - PO 25 mg DAILY EMILY Administration Valsartan 160 mg 05/24/17 10:00 Diovan - PO DAILY [facility] Home Medications Medication Instructions Recorded NK [No Known Home Medication] 05/21/17 Echocardiography dated 05/14/2017 revealed normal LV size and function with severe MR and TR with moderate degree of pulmonary HTN, no MVP or flail leaflet so etiology of valvular pathology is unclear. 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 # Acute Diastolic LV heart failure with severe MR and TR ; Echo as above. on IV lasix , Valsartan , coreg and aldactone will continue. Will monitor Is and Os. # Atypical Chest pain AL is ruled out ( 3 sets of Troponin Negative) , chest pain resolved , CTA neg , neg trop . no further w/u # Normocytic anemia : uclear etiology. Possible due to PUD since patient admits to excessive use of Aspirin since was in pain s/p perforated gastric ulcer post Paulie patch repair 01/2017. Can't obtain MRI of pelvis as has geovany. will d/w Radiology. Going for EGD in am by , continue Protonix for now. Keep Hemoglobin above 8.0 # Hx of HTN continue meds. DVT Px: SCDs, early ambulation
[2017-05-23] MEDS: DOCUSATE SODIUM 100 MG CAPSULE (FP) PO SCH (19:01)
[2017-05-23] MEDS: LACTULOSE 20 GM/30 ML UDC (FOR ORAL USE ONLY) PO PRN (20:10)
[2017-05-23] MEDS ORDERED: ZOLPIDEM TARTRATE 5 MG TABLET PO ONE (21:24)
[2017-05-24] MEDS: DEXTROSE 5%-NORMAL SALINE 1,000 ML IV SCH (01:05)
[2017-05-24 07:35] LABS: EOSINOPHIL 2.2 % (0-4.5); MCH 27.9 pg (25.7-33.7); MCHC 32.8 g/dl (32.0-36.0); NEUTROPHILS 68.8 % (42.8-82.8); PLATELET COUNT 302 K/MM3 (134-434); RDW 24.9 % (11.6-15.6); WHITE BLOOD COUNT 5.4 K/mm3 (4.0-10.0)
[2017-05-24] MEDS ORDERED: LIDOCAINE HCL 2% (20ML MULTI-DOSE VIAL) NR ONE (07:50)
[2017-05-24] MEDS ORDERED: PROPOFOL 20 ML ONE ×2 (07:50)
[2017-05-24 08:14] LABS: ANION GAP 9 (8-16); CO2 27 mmol/L (21-32); GLUCOSE,RANDOM 73 mg/dL (74-106)
[2017-05-24 08:19] LABS: ALK PHOS 136 U/L (45-117); BILIRUBIN,TOTAL 0.6 mg/dL (0.2-1.0); CREATININE 0.4 mg/dL (0.55-1.02); SGOT/AST 26 U/L (15-37); SGPT/ALT 23 U/L (12-78); TOT PROT 7.2 g/dl (6.4-8.2)
--- NOTE | 2017-05-24 09:19 | PN ---
Progress Note (short form) - Note Progress Note: Addendum: S/P EGD Persistent pyloric channel ulcer at site of prior surgery Patient states she has been taking ryann seltzer plus for post-op abdominal pain ? ASA Cautery applied to oozing sites Continue PPI Clear liquid diet Recall Dr Robin to re-evaluate No active bleed at this time
[2017-05-24] MEDS: DOCUSATE SODIUM 100 MG CAPSULE (FP) PO SCH (10:22)
[2017-05-24] MEDS: SPIRONOLACTONE 25 MG TABLET (FP) PO SCH (10:22)
[2017-05-24] MEDS: VALSARTAN 80 MG TABLET (UD) PO SCH (10:22)
[2017-05-24] MEDS: CARVEDILOL 6.25 MG TABLET (FP) PO SCH ×2 (10:22→21:31)
[2017-05-24] MEDS: PANTOPRAZOLE SODIUM 100 ML IVPB SCH (10:23)
[2017-05-24] MEDS: FUROSEMIDE 40 MG/4 ML INJECTABLE VIAL IVPUSH SCH (10:23)
[2017-05-24] MEDS: ACETAMINOPHEN 325 MG TABLET (FP) PO PRN ×2 (10:35→17:12)
[2017-05-24] MEDS: oxyCODONE HCL 5 MG TABLET PO PRN (10:36)
[2017-05-24] MEDS ORDERED: oxyCODONE HCL 5 MG TABLET PO PRN (11:08)
--- NOTE | 2017-05-24 11:20 | PN ---
Progress Note, Physician History of Present Illness: Sxs improving with diuresis and afterload reduction. s/p EGD demonstrating persistent pyloric channel ulcer at site of prior surgery with cautery applied to oozing sites, has been using salicylates (Dago). - Current Medication List Current Medications: Active Medications Acetaminophen (Tylenol -) 650 mg PO Q4H PRN PRN Reason: PAIN LEVEL 1-5 Last Admin: 05/24/17 10:35 Dose: 650 mg Al Hydroxide/Mg Hydroxide (Mylanta Oral Suspension -) 30 ml PO Q6H PRN PRN Reason: DYSPEPSIA Last Admin: 05/24/17 10:37 Dose: 30 ml Carvedilol (Coreg -) 6.25 mg PO BID [facility] Last Admin: 05/24/17 10:22 Dose: 6.25 mg Docusate Sodium (Colace -) 100 mg PO DAILY [facility] Last Admin: 05/24/17 10:22 Dose: 100 mg Furosemide (Lasix Injection -) 20 mg IVPUSH DAILY [facility] Last Admin: 05/24/17 10:23 Dose: 20 mg Pantoprazole Sodium (Protonix 40mg Ivpb (Pre-Docked)) 100 mls @ 200 mls/hr IVPB BID [facility] Last Admin: 05/24/17 10:23 Dose: 200 mls/hr Dextrose/Sodium Chloride (D5-Ns -) 1,000 mls @ 42 mls/hr IV ASDIR [facility] Last Admin: 05/24/17 01:05 Dose: 42 mls/hr Lactulose (Cephulac (Oral Use)) 20 gm PO TID PRN PRN Reason: CONSTIPATION Last Admin: 05/23/17 20:10 Dose: 20 gm Methylnaltrexone [place] (Relistor -) 12 mg SQ DAILY [facility] Last Admin: 05/23/17 09:29 Dose: 12 mg Spironolactone (Aldactone -) 25 mg PO DAILY [facility] Last Admin: 05/24/17 10:22 Dose: 25 mg Valsartan (Diovan -) 160 mg PO DAILY [facility] Last Admin: 05/24/17 10:22 Dose: 160 mg - Objective Vital Signs: Vital Signs Temperature 98.1 F 05/24/17 09:22 Pulse Rate 75 05/24/17 09:22 Respiratory Rate 20 05/24/17 09:22 Blood Pressure 114/74 05/24/17 09:22 O2 Sat by Pulse Oximetry (%) 100 05/24/17 09:00 Constitutional: Yes: No Distress, Calm, Thin Neck: Yes: Supple Cardiovascular: Yes: Regular Rate and Rhythm, Murmur (2/6 SM) Respiratory: Yes: Regular, CTA Bilaterally Gastrointestinal: Yes: Normal Bowel Sounds, Soft Edema: No Labs: CBC, BMP 05/24/17 05:35 05/24/17 05:35 INR, PTT INR 1.25 (0.82-1.09) H 05/21/17 10:00 Problem List - Problems (1) Chest pain Code(s): R07.9 - CHEST PAIN, UNSPECIFIED Qualifiers: Chest pain type: precordial pain Qualified Code(s): R07.2 - Precordial pain (2) Acute diastolic congestive heart failure Code(s): I50.31 - ACUTE DIASTOLIC (CONGESTIVE) HEART FAILURE (3) Anemia Code(s): D64.9 - ANEMIA, UNSPECIFIED Qualifiers: Anemia type: iron deficiency Iron deficiency anemia type: chronic blood loss Qualified Code(s): D50.0 - Iron deficiency anemia secondary to blood loss (chronic) (4) Severe mitral regurgitation Code(s): I34.0 - NONRHEUMATIC MITRAL (VALVE) INSUFFICIENCY (5) Severe tricuspid regurgitation Code(s): I07.1 - RHEUMATIC TRICUSPID INSUFFICIENCY (6) Hypertensive cardiomegaly with heart failure Code(s): I11.0 - HYPERTENSIVE HEART DISEASE WITH HEART FAILURE (7) Perforated gastric ulcer Code(s): K25.5 - CHRONIC OR UNSPECIFIED GASTRIC ULCER WITH PERFORATION Qualifiers: Gastric ulcer chronicity: chronic Qualified Code(s): K25.5 - Chronic or unspecified gastric ulcer with perforation Assessment/Plan Echocardiography dated 05/14/2017 revealed normal LV size and function with severe MR and TR with moderate degree of pulmonary HTN, no MVP or flail leaflet so etiology of valvular pathology is unclear 05/18/2017 Mild LV and RV decreased fxn, mild JAMES, severe MR, TR, mild AR 1. Acute diastolic LV failure referable to valvular pathology MR exacerbated by HTN improving 2. Hypertension, hypertensive cardiovascular disease 3. MR, severe in severity etiology of which to be determined, no evidence of MVP or flail leaflets 4. TR, severe in severity with moderate degree of pulmonary HTN, RVSP of 52 mmHg 5. Severe anemia, post transfusion, referable to #6 6. Post recent perforated gastric ulcer post Paulie patch repair 01/2017 with persistent pyloric channel ulcer at site of prior surgery post cautery at oozing sites PLAN: 1. Change to oral diuresis with monitor renal fxn, electrolytes and diuretic response 2. Continue carvedilol 6.25 bid, Diovan 160 qd and spirinolactone 25 3. Monitor Hg and maintain equal or greater than 8.0 4. NSAID avoidance, IV Protonix, surgical re-evaluation
[2017-05-24] MEDS ORDERED: PANTOPRAZOLE SODIUM 80 MG in SODIUM CHLORIDE 100 ML IVPB SCH ×2 (11:45→15:06)
[2017-05-24] MEDS: Methylnaltrexone Bromide 12 MG/0.6 ML KIT SQ SCH (14:55)
--- NOTE | 2017-05-24 15:35 | PN ---
Physical Exam: SUBJECTIVE: Patient seen and examined at bedside. Complains of mild headache. Pt has not had a BM since being on clear liquid diet. No other complaints. No acute events overnight. Pt denies CP, SOB, abd pain, dysuria, nausea, vomiting. OBJECTIVE: Vital Signs Period Temp Pulse Resp BP Sys/Suárez Pulse Ox Last 24 Hr 97.6 F-98.9 F 69-110 17-20 100-119/59-87 99-100 GENERAL: The patient is awake, alert, and fully oriented, in no acute distress. HEAD: Normal with no signs of trauma. EYES: PERRL, extraocular movements intact, sclera anicteric, conjunctiva clear. No ptosis. ENT: Ears normal, nares patent, oropharynx clear without exudates, moist mucous membranes. NECK: Trachea midline, full range of motion, supple. LUNGS: Breath sounds equal, clear to auscultation bilaterally, no wheezes, no crackles, no accessory muscle use. HEART: Regular rate and rhythm, S1, S2 without murmur, rub or gallop. ABDOMEN: Soft, mild TTP, nondistended, normoactive bowel sounds, no guarding, no rebound, no hepatosplenomegaly, no masses. EXTREMITIES: 2+ pulses, warm, well-perfused, no edema. NEUROLOGICAL: Cranial nerves II through XII grossly intact. Normal speech, gait not observed. PSYCH: Normal mood, normal affect. SKIN: Warm, dry, normal turgor, no rashes or lesions noted Laboratory Results - last 24 hr 05/24/17 05/24/17 05:35 05:35 WBC 5.4 RBC 3.57 L Hgb 10.0 L Hct 30.4 L MCV 85.0 MCHC 32.8 RDW 24.9 H Plt Count 302 MPV 8.0 Neutrophils % 68.8 Lymphocytes % 16.9 Monocytes % 10.1 Eosinophils % 2.2 Basophils % 2.0 Sodium 139 Potassium 4.1 Chloride 103 Carbon Dioxide 27 Anion Gap 9 BUN 5 L Creatinine 0.4 L D Creat Clearance w eGFR > 60 Random Glucose 73 L Calcium 9.0 Total Bilirubin 0.6 D AST 26 ALT 23 Alkaline Phosphatase 136 H D Total Protein 7.2 Albumin 3.0 L Active Medications Generic Name Dose Route Start Last Admin Trade Name Freq PRN Reason Stop Dose Admin Acetaminophen 650 mg 05/21/17 18:35 05/24/17 10:35 Tylenol - PO 650 mg Q4H PRN Administration PAIN LEVEL 1-5 Al Hydroxide/Mg Hydroxide 30 ml 05/21/17 21:35 05/24/17 10:37 Mylanta Oral Suspension - PO 30 ml Q6H PRN Administration DYSPEPSIA Carvedilol 6.25 mg 05/22/17 12:15 05/24/17 10:22 Coreg - PO 6.25 mg BID EMILY Administration Docusate Sodium 100 mg 05/23/17 17:45 05/24/17 10:22 Colace - PO 100 mg DAILY EMILY Administration Furosemide 20 mg 05/25/17 10:00 Lasix - PO DAILY EMILY Dextrose/Sodium Chloride 1,000 mls @ 42 mls/hr 05/24/17 00:01 05/24/17 01:05 D5-Ns - IV 42 mls/hr ASDIR EMILY Administration Pantoprazole Sodium 80 mg/ 100 mls @ 8 mls/hr 05/24/17 15:06 Sodium Chloride IVPB Q10H EMILY Lactulose 20 gm 05/22/17 13:19 05/23/17 20:10 Cephulac (Oral Use) PO 20 gm TID PRN Administration CONSTIPATION Methylnaltrexone [place] 12 mg 05/22/17 14:00 05/24/17 14:55 Relistor - SQ 12 mg DAILY EMILY Administration Spironolactone 25 mg 05/22/17 12:15 05/24/17 10:22 Aldactone - PO 25 mg DAILY EMILY Administration Valsartan 160 mg 05/24/17 10:00 05/24/17 10:22 Diovan - PO 160 mg DAILY EMILY Administration ASSESSMENT/PLAN: 31 y/o F 31yo F with PMHx of severe Fe defic anemia, duodenal ulcer s/p gram patch repair, hemorrhagic ovarian cyst, systolic heart failure who presented to hospital with chest and abdominal pain. #Normocytic Anemia in setting of gastric ulcer history -GI consult appreciated -EGD today showed bleeding ulcer -GI recommends protonix 8mg/hr, clear liquid diet, surgical consult -Surg consult (Dr. Robin) appreciated -will f/u surg consult for Mon -PPI: Protonix 80mg IVPB Q10 -Hgb <3 on last adm s/p transfusion; w/u by Dr Conrad -Hb 10, Hct 30.4 today -B12 1712, folate 10 -r/o ZES (Gastrin 382) -EGD shows no evidence of ZES -FOBT neg x 1 #Atypical Chest pain: Resolved -R/o ACS -Trop neg x3 -EKG neg for acs -R/o PE -D dimer pos (1056) -CTA neg -R/o PNA -Symptoms inconsistent -no evidence on CXR -WBC wnl #Acute on Chronic syst and diastolic CHF exacerbation in setting of severe valvular disease -BNP >7000 -CXR no acute pathology -Previous TTE showed mildly dilated atria, severe TR MR, mildly reduced RV fxn, and mild global systolic LV hypokinesis -s/p Lasix IV 40 in ed -Coreg 6.25mg PO BID, Diovan 160mg PO Daily, Spironolactone 25mg PO Daily -fluid restriction, strict I and O -daily weights -previous suspicion of connective tissue d/o by Rheum Dr Menchaca, unable to perform cards MRI due to Gi clips; discussed cardiac biopsy. #Hemorrhagic ovarian cyst -CA-125 elevated at 54 on prev visit -Previous abd/pelvic CT with contrast and TVS neg for intra-abdominal pathology - F/U KUB result which showed no acute pathology -f/u as out pt #Rheumatoid -RF high, r/o anti-phospholipid syndrome, infiltrative disease, sarcoidosis as per Rheum attending -CCP neg -f/u as out pt #Hypophosphatemia: resolved -Phos now 4.8 #DVT ppx -SCD -Heparin held d/t bleed risk #GI ppx -Pt on Protonix #FEN -fluid restrict -repleting phos -Na controlled diet #Dispo: adm tele. Problem List - Problems (1) Chest pain Code(s): R07.9 - CHEST PAIN, UNSPECIFIED Qualifiers: Chest pain type: precordial pain Qualified Code(s): R07.2 - Precordial pain (2) Abdominal pain Code(s): R10.9 - UNSPECIFIED ABDOMINAL PAIN Qualifiers: Abdominal location: lower abdomen, unspecified Qualified Code(s): R10.30 - Lower abdominal pain, unspecified (3) Acute diastolic congestive heart failure Code(s): I50.31 - ACUTE DIASTOLIC (CONGESTIVE) HEART FAILURE (4) Edema of lower extremity Code(s): R60.0 - LOCALIZED EDEMA (5) Anemia Code(s): D64.9 - ANEMIA, UNSPECIFIED Qualifiers: Anemia type: iron deficiency Iron deficiency anemia type: chronic blood loss Qualified Code(s): D50.0 - Iron deficiency anemia secondary to blood loss (chronic) (6) Severe mitral regurgitation Code(s): I34.0 - NONRHEUMATIC MITRAL (VALVE) INSUFFICIENCY (7) Severe tricuspid regurgitation Code(s): I07.1 - RHEUMATIC TRICUSPID INSUFFICIENCY (8) Systemic involvement of connective tissue Code(s): M35.9 - SYSTEMIC INVOLVEMENT OF CONNECTIVE TISSUE, UNSPECIFIED Visit type - Emergency Visit Emergency Visit: No - New Patient This patient is new to me today: No - Critical Care Critical Care patient: No
--- NOTE | 2017-05-24 16:31 | CONSULT ---
- Consultation REQUESTING PROVIDER: Malick Robin (General Surgery) CONSULT REQUEST: We have been asked to surgically evaluate this patient for abd pain. PCP: Fiona Nunez History Provided By: Medical Record Limitations to Obtaining History: Patient is poor historian HPI: called to rigoberto 31yo female well known to general surgery service. PMHx noted below. Patient admitted secondary to LE edema (newly diagnosed with acute on chronic systolic heart failure). Also, pt c/o abd pain since surgery. Was seen/evaluated for her post-op visit by Dr. Robin. Since then, she admits to taking Tylenol 650 mg orally every 2 hours and 1 ryann seltzer and NSAIDs. She continues to smoke cigarettes (10/per/day). Found patient this morning ambulating in room talking on cell phone. In good spirits. GI/ Dr. Muñiz EGD note appreciated --> mild oozing from pyloric channel ulcer (site of surgery), cauterized, no more bleeding. Tolerating PO liquid diet. Hasn't had a BM since having EGD. Passing flatus. Denies n/v/f/c, CP, SOB, melena PMHx: HTN, Peptic Ulcer Disease, Anemia, Sickle Cell Trait, Depression (not on medication), Communicating pseudo-aneurysm in gastroduodenal artery , s/p embolization, Migraines , Iron def anemia, newly diagnosed acute on chronic systolic heart failure with severe MR, TR. PSHx: perforated pyloric channel ulcer s/p Paulie patch 01/23/17 Smoking history: Current every day smoker (10 per/day) Home Meds: Denies taking any except for ryann seltzer (daily) Allergies: NKDA ROS: All systems reviewed and considered negative except for what's contained in HPI. PE: GENERAL:alert. NAD HEAD: NC. AT EYES: anicteric NECK:Good ROM. Soft. Supple. No Lymphadenopathy ABD: Softly distended. Midline incision intact. Bowel sounds present x4. No organomegaly LE: Soft. NT b/l Last Vital Signs Temp Pulse Resp BP Pulse Ox 98.4 F 69 20 104/63 100 05/24/17 14:05 05/24/17 14:00 05/24/17 14:00 05/24/17 14:00 05/24/17 09:00 Blood Type Blood Type O POSITIVE 05/21/17 10:00 CBC, BMP 05/24/17 05:35 05/24/17 05:35 INR, PTT INR 1.25 (0.82-1.09) H 05/21/17 10:00 Problem List - Problems (1) Perforated gastric ulcer Assessment/Plan: Smoking cessation Monitor H/H Continue medical management No surgical intervention at this time Avoid NSAID use Above plan discussed with Dr. Robin and agrees Code(s): K25.5 - CHRONIC OR UNSPECIFIED GASTRIC ULCER WITH PERFORATION Qualifiers: Gastric ulcer chronicity: chronic Qualified Code(s): K25.5 - Chronic or unspecified gastric ulcer with perforation (2) Acute diastolic congestive heart failure Assessment/Plan: Cardio (Dr. Liriano) following Diuresis PRN Code(s): I50.31 - ACUTE DIASTOLIC (CONGESTIVE) HEART FAILURE Visit type - Case Type Case Type: ED Admission - Emergency Emergency Visit: Yes ED Registration Date: 05/21/17 Care time: The patient presented to the Emergency Department on the above date and was hospitalized for further evaluation of their emergent condition.
[2017-05-24] MEDS: traMADol HCL 50 MG TABLET PO PRN (17:12)
[2017-05-24] MEDS: PANTOPRAZOLE SODIUM 80 MG in SODIUM CHLORIDE 100 ML IVPB SCH ×2 (17:51→21:33)
--- NOTE | 2017-05-24 20:15 | PN ---
Teaching Attending Note Name of Resident: Taras Mata ATTENDING PHYSICIAN STATEMENT I saw and evaluated the patient. I reviewed the resident's note and discussed the case with the resident. I agree with the resident's findings and plan as documented. SUBJECTIVE: Patient is comfortable with no acute distress, NO chest pain, no shortness of breath. Denies having any abdominal pain today. OBJECTIVE: Vital Signs Temperature 98.4 F 05/24/17 14:05 Pulse Rate 69 05/24/17 14:00 Respiratory Rate 20 05/24/17 14:00 Blood Pressure 104/63 05/24/17 14:00 O2 Sat by Pulse Oximetry (%) 100 05/24/17 09:00 PE: per resident's note CBCD WBC 5.4 K/mm3 (4.0-10.0) 05/24/17 05:35 RBC 3.57 M/mm3 (3.60-5.2) L 05/24/17 05:35 Hgb 10.0 GM/dL (10.7-15.3) L 05/24/17 05:35 Hct 30.4 % (32.4-45.2) L 05/24/17 05:35 MCV 85.0 fl (80-96) 05/24/17 05:35 MCHC 32.8 g/dl (32.0-36.0) 05/24/17 05:35 RDW 24.9 % (11.6-15.6) H 05/24/17 05:35 Plt Count 302 K/MM3 (134-434) 05/24/17 05:35 MPV 8.0 fl (7.5-11.1) 05/24/17 05:35 CMP Sodium 139 mmol/L (136-145) 05/24/17 05:35 Potassium 4.1 mmol/L (3.5-5.1) 05/24/17 05:35 Chloride 103 mmol/L (98-107) 05/24/17 05:35 Carbon Dioxide 27 mmol/L (21-32) 05/24/17 05:35 Anion Gap 9 (8-16) 05/24/17 05:35 BUN 5 mg/dL (7-18) L 05/24/17 05:35 Creatinine 0.4 mg/dL (0.55-1.02) L D 05/24/17 05:35 Creat Clearance w eGFR > 60 (>60) 05/24/17 05:35 Random Glucose 73 mg/dL (74-106) L 05/24/17 05:35 Calcium 9.0 mg/dL (8.5-10.1) 05/24/17 05:35 Total Bilirubin 0.6 mg/dL (0.2-1.0) D 05/24/17 05:35 AST 26 U/L (15-37) 05/24/17 05:35 ALT 23 U/L (12-78) 05/24/17 05:35 Alkaline Phosphatase 136 U/L (45-117) H D 05/24/17 05:35 Total Protein 7.2 g/dl (6.4-8.2) 05/24/17 05:35 Albumin 3.0 g/dl (3.4-5.0) L 05/24/17 05:35 CARDIAC ENZYMES Creatine Kinase 43 IU/L (26-192) 05/22/17 00:53 Troponin I 0.03 ng/ml (0.00-0.05) 05/22/17 00:53 Current Medications Generic Name Dose Route Start Last Admin Trade Name Freq PRN Reason Stop Dose Admin Acetaminophen 650 mg 05/21/17 18:35 05/24/17 17:12 Tylenol - PO 650 mg Q4H PRN Administration PAIN LEVEL 1-5 Al Hydroxide/Mg Hydroxide 30 ml 05/21/17 21:35 05/24/17 10:37 Mylanta Oral Suspension - PO 30 ml Q6H PRN Administration DYSPEPSIA Carvedilol 6.25 mg 05/22/17 12:15 05/24/17 10:22 Coreg - PO 6.25 mg BID EMILY Administration Docusate Sodium 100 mg 05/23/17 17:45 05/24/17 10:22 Colace - PO 100 mg DAILY EMILY Administration Furosemide 20 mg 05/25/17 10:00 Lasix - PO DAILY EMILY Dextrose/Sodium Chloride 1,000 mls @ 42 mls/hr 05/24/17 00:01 05/24/17 01:05 D5-Ns - IV 42 mls/hr ASDIR EMILY Administration Pantoprazole Sodium 80 mg/ 100 mls @ 10 mls/hr 05/24/17 15:45 05/24/17 17:51 Sodium Chloride IVPB Not Given Q10H EMILY 8 MG/HR Lactulose 20 gm 05/22/17 13:19 05/23/17 20:10 Cephulac (Oral Use) PO 20 gm TID PRN Administration CONSTIPATION Methylnaltrexone [place] 12 mg 05/22/17 14:00 05/24/17 14:55 Relistor - SQ 12 mg DAILY EMILY Administration Spironolactone 25 mg 05/22/17 12:15 05/24/17 10:22 Aldactone - PO 25 mg DAILY EMILY Administration Tramadol HCl 25 mg 05/24/17 16:40 05/24/17 17:12 Ultram - PO 25 mg Q8H PRN Administration PAIN Valsartan 160 mg 05/24/17 10:00 05/24/17 10:22 Diovan - PO 160 mg DAILY EMILY Administration Home Medications Medication Instructions Recorded NK [No Known Home Medication] 05/21/17 Echocardiography dated 05/14/2017 revealed normal LV size and function with severe MR and TR with moderate degree of pulmonary HTN, no MVP or flail leaflet so etiology of valvular pathology is unclear. 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 # Patient is s/p EGD with findings Persistent pyloric channel ulcer at site of prior surgery as per 's findings possible due to taking ryann seltzer plus for post-op abdominal pain/ASA . s/p Cautery applied to oozing sites by , on PPI , clear liquid diet , will consult to re- evaluate, since patient is s/p perforated gastric ulcer post Paulie patch repair 01/2017 by . As per , no active bleed at this time. # Normocytic anemia s/p EGD on Protonix for now # Acute Diastolic LV heart failure with severe MR and TR ; Echo as above. on po lasix now , Valsartan , coreg and aldactone will continue. Will monitor Is & Os. # Atypical Chest pain MD is ruled out ( 3 sets of Troponin Negative) , chest pain resolved , CTA neg , neg trop . no further w/u # Hx of HTN continue meds. DVT Px: SCDs, early ambulation, since heparin is contraindicated to GI bleed
[2017-05-24] MEDS ORDERED: ZOLPIDEM TARTRATE 5 MG TABLET PO ONE (23:55)
[2017-05-25] MEDS: ACETAMINOPHEN 325 MG TABLET (FP) PO PRN (00:15)
[2017-05-25] MEDS: DEXTROSE 5%-NORMAL SALINE 1,000 ML IV SCH (00:15)
[2017-05-25 00:19] LABS: CYCLIC CITRULLINE PEPTIDE AB 4 units (0-19)
[2017-05-25] MEDS: PANTOPRAZOLE SODIUM 80 MG in SODIUM CHLORIDE 100 ML IVPB SCH ×3 (02:26→21:16)
[2017-05-25 06:42] LABS: MCH 27.4 pg (25.7-33.7); MCHC 32.1 g/dl (32.0-36.0); MEAN CELL VOLUME 85.5 fl (80-96); PLATELET COUNT 310 K/MM3 (134-434); RDW 25.4 % (11.6-15.6); WHITE BLOOD COUNT 4.1 K/mm3 (4.0-10.0)
[2017-05-25 07:22] LABS: ALBUMIN 2.8 g/dl (3.4-5.0); ANION GAP 7 (8-16); CALCIUM 8.8 mg/dL (8.5-10.1); CO2 28 mmol/L (21-32); GLUCOSE,RANDOM 73 mg/dL (74-106)
[2017-05-25 07:27] LABS: ALK PHOS 119 U/L (45-117); BILIRUBIN,TOTAL 0.6 mg/dL (0.2-1.0); CREATININE 0.4 mg/dL (0.55-1.02); SGOT/AST 17 U/L (15-37); SGPT/ALT 18 U/L (12-78); TOT PROT 6.8 g/dl (6.4-8.2)
[2017-05-25] MEDS: FUROSEMIDE 20 MG TABLET (FP) PO SCH (09:00)
[2017-05-25] MEDS: SPIRONOLACTONE 25 MG TABLET (FP) PO SCH (09:00)
[2017-05-25] MEDS: CARVEDILOL 6.25 MG TABLET (FP) PO SCH ×2 (09:00→21:16)
[2017-05-25] MEDS: DOCUSATE SODIUM 100 MG CAPSULE (FP) PO SCH (09:00)
[2017-05-25] MEDS: VALSARTAN 80 MG TABLET (UD) PO SCH (09:00)
[2017-05-25] MEDS: Methylnaltrexone Bromide 12 MG/0.6 ML KIT SQ SCH ×2 (10:00→16:53)
[2017-05-25] MEDS: LACTULOSE 20 GM/30 ML UDC (FOR ORAL USE ONLY) PO PRN ×2 (10:30→21:16)
--- NOTE | 2017-05-25 10:36 | PN ---
Progress Note, Physician History of Present Illness: Sxs resolved with diuresis and afterload reduction. s/p EGD demonstrating persistent pyloric channel ulcer at site of prior surgery with cautery applied to oozing sites, has been using salicylates (Dago). - Current Medication List Current Medications: Active Medications Acetaminophen (Tylenol -) 650 mg PO Q4H PRN PRN Reason: PAIN LEVEL 1-5 Last Admin: 05/25/17 00:15 Dose: 650 mg Al Hydroxide/Mg Hydroxide (Mylanta Oral Suspension -) 30 ml PO Q6H PRN PRN Reason: DYSPEPSIA Last Admin: 05/24/17 10:37 Dose: 30 ml Carvedilol (Coreg -) 6.25 mg PO BID [facility] Last Admin: 05/25/17 09:00 Dose: 6.25 mg Docusate Sodium (Colace -) 100 mg PO DAILY [facility] Last Admin: 05/25/17 09:00 Dose: 100 mg Furosemide (Lasix -) 20 mg PO DAILY [facility] Last Admin: 05/25/17 09:00 Dose: 20 mg Dextrose/Sodium Chloride (D5-Ns -) 1,000 mls @ 42 mls/hr IV ASDIR EMILY Last Admin: 05/25/17 00:15 Dose: 42 mls/hr Pantoprazole Sodium 80 mg/ (Sodium Chloride) 100 mls @ 10 mls/hr IVPB Q10H EMILY PRN Reason: 8 MG/HR Last Admin: 05/25/17 02:26 Dose: Not Given Lactulose (Cephulac (Oral Use)) 20 gm PO TID PRN PRN Reason: CONSTIPATION Last Admin: 05/25/17 10:30 Dose: 20 gm Methylnaltrexone [place] (Relistor -) 12 mg SQ DAILY EMILY Last Admin: 05/24/17 14:55 Dose: 12 mg Spironolactone (Aldactone -) 25 mg PO DAILY [facility] Last Admin: 05/25/17 09:00 Dose: 25 mg Tramadol HCl (Ultram -) 25 mg PO Q8H PRN PRN Reason: PAIN Last Admin: 05/24/17 17:12 Dose: 25 mg Valsartan (Diovan -) 160 mg PO DAILY [facility] Last Admin: 05/25/17 09:00 Dose: 160 mg - Objective Vital Signs: Vital Signs Temperature 98.1 F 05/25/17 05:51 Pulse Rate 77 05/25/17 05:51 Respiratory Rate 18 05/25/17 05:51 Blood Pressure 108/61 05/25/17 05:51 O2 Sat by Pulse Oximetry (%) 100 05/24/17 22:00 Constitutional: Yes: No Distress, Calm Neck: Yes: Supple Cardiovascular: Yes: Regular Rate and Rhythm, Murmur (2/6 SM) Respiratory: Yes: Regular, CTA Bilaterally Gastrointestinal: Yes: Normal Bowel Sounds, Soft Edema: No Labs: CBC, BMP 05/25/17 05:35 05/25/17 05:35 INR, PTT INR 1.25 (0.82-1.09) H 05/21/17 10:00 Problem List - Problems (1) Chest pain Code(s): R07.9 - CHEST PAIN, UNSPECIFIED Qualifiers: Chest pain type: precordial pain Qualified Code(s): R07.2 - Precordial pain (2) Acute diastolic congestive heart failure Code(s): I50.31 - ACUTE DIASTOLIC (CONGESTIVE) HEART FAILURE (3) Anemia Code(s): D64.9 - ANEMIA, UNSPECIFIED Qualifiers: Anemia type: iron deficiency Iron deficiency anemia type: chronic blood loss Qualified Code(s): D50.0 - Iron deficiency anemia secondary to blood loss (chronic) (4) Severe mitral regurgitation Code(s): I34.0 - NONRHEUMATIC MITRAL (VALVE) INSUFFICIENCY (5) Severe tricuspid regurgitation Code(s): I07.1 - RHEUMATIC TRICUSPID INSUFFICIENCY (6) Hypertensive cardiomegaly with heart failure Code(s): I11.0 - HYPERTENSIVE HEART DISEASE WITH HEART FAILURE (7) Perforated gastric ulcer Code(s): K25.5 - CHRONIC OR UNSPECIFIED GASTRIC ULCER WITH PERFORATION Qualifiers: Gastric ulcer chronicity: chronic Qualified Code(s): K25.5 - Chronic or unspecified gastric ulcer with perforation Assessment/Plan Echocardiography dated 05/14/2017 revealed normal LV size and function with severe MR and TR with moderate degree of pulmonary HTN, no MVP or flail leaflet so etiology of valvular pathology is unclear 05/18/2017 Mild LV and RV decreased fxn, mild JAMES, severe MR, TR, mild AR 1. Acute diastolic LV failure referable to valvular pathology MR, TR exacerbated by HTN improving 2. Hypertension, hypertensive cardiovascular disease 3. MR, severe in severity etiology of which to be determined, no evidence of MVP or flail leaflets 4. TR, severe in severity with moderate degree of pulmonary HTN, RVSP of 52 mmHg 5. Severe anemia, post transfusion, referable to #6 6. Post recent perforated gastric ulcer post Paulie patch repair 01/2017 with persistent pyloric channel ulcer at site of prior surgery post cautery at oozing sites PLAN: 1. Continue Lasix 20 qd with monitor renal fxn, electrolytes and diuretic response 2. Continue carvedilol 6.25 bid, Diovan 160 qd and spirinolactone 25 qd 3. Monitor Hg and maintain equal or greater than 8.0 4. NSAID avoidance, change to po Protonix, surgical input noted, smoking cessation 5. D/c planning with f/u as outpatient for BALBINA to further define valvular cardiomyopathy
[2017-05-25 11:11] LABS: PLATELET ESTIMATE ADEQUATE (NORMAL)
--- NOTE | 2017-05-25 13:29 | PATH ---
Surgical Pathology Report Patient Name: MITUL SMITH [facility]. Rec. #: [id number] /Age/Gender: 1985 (Age: 31) / F Account: [id number] Location: [facility] PEDS/ADOL Taken: 05/24/2017 Received: 05/24/2017 Reported: 05/25/2017 Physicians: Gabriel Muñiz M.D. Specimen(s) Received BX ANTRUM Clinical History Anemia, Duodenal ulcer, r/o H. Pylori Final Diagnosis STOMACH, ANTRUM, BIOPSY: GASTRIC OXYNTIC MUCOSA WITH MODERATE CHRONIC GASTRITIS. IMMUNOSTAIN FOR H. PYLORI IS NEGATIVE FOR ORGANISMS. Electronically Signed Rayray Shay M.D. Gross Description Received in formalin, labeled "biopsy antrum" is a tidwell, irregular portion of soft tissue measuring 0.7 cm in greatest dimension. The specimen is submitted in toto in one cassette. /05/24/201705/24/2017
--- NOTE | 2017-05-25 16:34 | PN ---
Physical Exam: SUBJECTIVE: Patient seen and examined at bedside. No acute events overnight. Pt complains of headache. No other complaints. Pt denies CP, SOB, abd pain, diarrhea, dysuria. OBJECTIVE: Vital Signs Period Temp Pulse Resp BP Sys/Suárez Pulse Ox Last 24 Hr 98.0 F-98.6 F 66-83 16-20 104-111/59-66 100-100 GENERAL: The patient is awake, alert, and fully oriented, in no acute distress. Pt is thin HEAD: Normal with no signs of trauma. EYES: PERRL, extraocular movements intact, sclera anicteric, conjunctiva clear. No ptosis. ENT: Ears normal, nares patent, oropharynx clear without exudates, moist mucous membranes. NECK: Trachea midline, full range of motion, supple. LUNGS: Breath sounds equal, clear to auscultation bilaterally, no wheezes, no crackles, no accessory muscle use. HEART: Regular rate and rhythm, S1, S2 without murmur, rub or gallop. ABDOMEN: Soft, nontender, nondistended, normoactive bowel sounds, no guarding, no rebound, no hepatosplenomegaly, no masses. EXTREMITIES: 2+ pulses, warm, well-perfused, no edema. NEUROLOGICAL: Cranial nerves II through XII grossly intact. Normal speech, gait not observed. PSYCH: Normal mood, normal affect. SKIN: Warm, dry, normal turgor, no rashes or lesions noted Laboratory Results - last 24 hr 05/22/17 05/25/17 05/25/17 05:35 05:35 05:35 WBC 4.1 RBC 3.52 L Hgb 9.6 L Hct 30.0 L MCV 85.5 MCHC 32.1 RDW 25.4 H Plt Count 310 MPV 8.0 Neutrophils % 55.0 D Lymphocytes % 27.0 D Monocytes % 12.0 H Eosinophils % 3.0 Basophils % 3.0 H Differential Comment Manual diff done Platelet Estimate Adequate Sodium 140 Potassium 4.2 Chloride 105 Carbon Dioxide 28 Anion Gap 7 L BUN 6 L Creatinine 0.4 L Creat Clearance w eGFR > 60 POC Glucometer Random Glucose 73 L Calcium 8.8 Iron 29 TIBC 354 Iron Saturation 8 L Total Bilirubin 0.6 AST 17 D ALT 18 D Alkaline Phosphatase 119 H Total Protein 6.8 Albumin 2.8 L Stool Occult Blood Cycl Citrul Peptide IgG 4 05/25/17 05/25/17 11:29 13:00 WBC RBC Hgb Hct MCV MCHC RDW Plt Count MPV Neutrophils % Lymphocytes % Monocytes % Eosinophils % Basophils % Differential Comment Platelet Estimate Sodium Potassium Chloride Carbon Dioxide Anion Gap BUN Creatinine Creat Clearance w eGFR POC Glucometer 87 Random Glucose Calcium Iron TIBC Iron Saturation Total Bilirubin AST ALT Alkaline Phosphatase Total Protein Albumin Stool Occult Blood Negative Cycl Citrul Peptide IgG Active Medications Generic Name Dose Route Start Last Admin Trade Name Lance PRN Reason Stop Dose Admin Acetaminophen 650 mg 05/21/17 18:35 05/25/17 00:15 Tylenol - PO 650 mg Q4H PRN Administration PAIN LEVEL 1-5 Al Hydroxide/Mg Hydroxide 30 ml 05/21/17 21:35 05/24/17 10:37 Mylanta Oral Suspension - PO 30 ml Q6H PRN Administration DYSPEPSIA Carvedilol 6.25 mg 05/22/17 12:15 05/25/17 09:00 Coreg - PO 6.25 mg BID EMILY Administration Docusate Sodium 100 mg 05/23/17 17:45 05/25/17 09:00 Colace - PO 100 mg DAILY EMILY Administration Furosemide 20 mg 05/25/17 10:00 05/25/17 09:00 Lasix - PO 20 mg DAILY EMILY Administration Dextrose/Sodium Chloride 1,000 mls @ 42 mls/hr 05/24/17 00:01 05/25/17 00:15 D5-Ns - IV 42 mls/hr ASDIR EMILY Administration Pantoprazole Sodium 80 mg/ 100 mls @ 10 mls/hr 05/24/17 15:45 05/25/17 11:27 Sodium Chloride IVPB 10 mls/hr Q10H EMILY Administration 8 MG/HR Lactulose 20 gm 05/22/17 13:19 05/25/17 10:30 Cephulac (Oral Use) PO 20 gm TID PRN Administration CONSTIPATION Methylnaltrexone [place] 12 mg 05/22/17 14:00 05/25/17 10:00 Relistor - SQ Not Given DAILY EMILY Spironolactone 25 mg 05/22/17 12:15 05/25/17 09:00 Aldactone - PO 25 mg DAILY EMILY Administration Tramadol HCl 25 mg 05/24/17 16:40 05/24/17 17:12 Ultram - PO 25 mg Q8H PRN Administration PAIN Valsartan 160 mg 05/24/17 10:00 05/25/17 09:00 Diovan - PO 160 mg DAILY EMILY Administration ASSESSMENT/PLAN: 31 y/o F 31yo F with PMHx of severe Fe defic anemia, duodenal ulcer s/p gram patch repair, hemorrhagic ovarian cyst, systolic heart failure who presented to hospital with chest and abdominal pain. #Normocytic Anemia in setting of gastric ulcer history -GI consult appreciated -EGD showed bleeding ulcer -PPI: Protonix 80mg IVPB Q10 -Pending final decision from surgery -Hgb <3 on last adm s/p transfusion; w/u by Dr Conrad -Hb 10, Hct 30.4 today -B12 1712, folate 10 -r/o ZES (Gastrin 382) -EGD shows no evidence of ZES -FOBT neg x 1 #Headache - #Atypical Chest pain: Resolved -R/o ACS -Trop neg x3 -EKG neg for acs -R/o PE -D dimer pos (1056) -CTA neg -R/o PNA -Symptoms inconsistent -no evidence on CXR -WBC wnl #Acute on Chronic syst and diastolic CHF exacerbation in setting of severe valvular disease -BNP >7000 -CXR no acute pathology -Previous TTE showed mildly dilated atria, severe TR MR, mildly reduced RV fxn, and mild global systolic LV hypokinesis -s/p Lasix IV 40 in ed -Coreg 6.25mg PO BID, Diovan 160mg PO Daily, Spironolactone 25mg PO Daily -fluid restriction, strict I and O -daily weights -previous suspicion of connective tissue d/o by Rheum Dr Menchaca, unable to perform cards MRI due to Gi clips; discussed cardiac biopsy. #Hemorrhagic ovarian cyst -CA-125 elevated at 54 on prev visit -Previous abd/pelvic CT with contrast and TVS neg for intra-abdominal pathology - F/U KUB result which showed no acute pathology -f/u as out pt #Rheumatoid -RF high, r/o anti-phospholipid syndrome, infiltrative disease, sarcoidosis as per Rheum attending -CCP neg -f/u as out pt #Hypophosphatemia: resolved -Phos now 4.8 #DVT ppx -SCD -Heparin held d/t bleed risk #GI ppx -Pt on Protonix #FEN -soft diet #Dispo: adm tele. Problem List - Problems (1) Chest pain Code(s): R07.9 - CHEST PAIN, UNSPECIFIED Qualifiers: Chest pain type: precordial pain Qualified Code(s): R07.2 - Precordial pain (2) Abdominal pain Code(s): R10.9 - UNSPECIFIED ABDOMINAL PAIN Qualifiers: Abdominal location: lower abdomen, unspecified Qualified Code(s): R10.30 - Lower abdominal pain, unspecified (3) Acute diastolic congestive heart failure Code(s): I50.31 - ACUTE DIASTOLIC (CONGESTIVE) HEART FAILURE (4) Edema of lower extremity Code(s): R60.0 - LOCALIZED EDEMA (5) Anemia Code(s): D64.9 - ANEMIA, UNSPECIFIED Qualifiers: Anemia type: iron deficiency Iron deficiency anemia type: chronic blood loss Qualified Code(s): D50.0 - Iron deficiency anemia secondary to blood loss (chronic) (6) Severe mitral regurgitation Code(s): I34.0 - NONRHEUMATIC MITRAL (VALVE) INSUFFICIENCY (7) Severe tricuspid regurgitation Code(s): I07.1 - RHEUMATIC TRICUSPID INSUFFICIENCY (8) Systemic involvement of connective tissue Code(s): M35.9 - SYSTEMIC INVOLVEMENT OF CONNECTIVE TISSUE, UNSPECIFIED Visit type - Emergency Visit Emergency Visit: Yes ED Registration Date: 05/21/17 Care time: The patient presented to the Emergency Department on the above date and was hospitalized for further evaluation of their emergent condition. - New Patient This patient is new to me today: No - Critical Care Critical Care patient: No
--- NOTE | 2017-05-25 20:51 | PN ---
Teaching Attending Note Name of Resident: Taras Mata ATTENDING PHYSICIAN STATEMENT I saw and evaluated the patient. I reviewed the resident's note and discussed the case with the resident. I agree with the resident's findings and plan as documented. SUBJECTIVE: Comfortable with acute distress. OBJECTIVE: Vital Signs Temperature 99.4 F 05/25/17 17:41 Pulse Rate 100 H 05/25/17 17:41 Respiratory Rate 18 05/25/17 17:41 Blood Pressure 144/75 05/25/17 17:41 O2 Sat by Pulse Oximetry (%) 100 05/25/17 09:00 CBCD WBC 4.1 K/mm3 (4.0-10.0) 05/25/17 05:35 RBC 3.52 M/mm3 (3.60-5.2) L 05/25/17 05:35 Hgb 9.6 GM/dL (10.7-15.3) L 05/25/17 05:35 Hct 30.0 % (32.4-45.2) L 05/25/17 05:35 MCV 85.5 fl (80-96) 05/25/17 05:35 MCHC 32.1 g/dl (32.0-36.0) 05/25/17 05:35 RDW 25.4 % (11.6-15.6) H 05/25/17 05:35 Plt Count 310 K/MM3 (134-434) 05/25/17 05:35 MPV 8.0 fl (7.5-11.1) 05/25/17 05:35 CMP Sodium 140 mmol/L (136-145) 05/25/17 05:35 Potassium 4.2 mmol/L (3.5-5.1) 05/25/17 05:35 Chloride 105 mmol/L (98-107) 05/25/17 05:35 Carbon Dioxide 28 mmol/L (21-32) 05/25/17 05:35 Anion Gap 7 (8-16) L 05/25/17 05:35 BUN 6 mg/dL (7-18) L 05/25/17 05:35 Creatinine 0.4 mg/dL (0.55-1.02) L 05/25/17 05:35 Creat Clearance w eGFR > 60 (>60) 05/25/17 05:35 Random Glucose 73 mg/dL (74-106) L 05/25/17 05:35 Calcium 8.8 mg/dL (8.5-10.1) 05/25/17 05:35 Total Bilirubin 0.6 mg/dL (0.2-1.0) 05/25/17 05:35 AST 17 U/L (15-37) D 05/25/17 05:35 ALT 18 U/L (12-78) D 05/25/17 05:35 Alkaline Phosphatase 119 U/L (45-117) H 05/25/17 05:35 Total Protein 6.8 g/dl (6.4-8.2) 05/25/17 05:35 Albumin 2.8 g/dl (3.4-5.0) L 05/25/17 05:35 CARDIAC ENZYMES Creatine Kinase 43 IU/L (26-192) 05/22/17 00:53 Troponin I 0.03 ng/ml (0.00-0.05) 05/22/17 00:53 Current Medications Generic Name Dose Route Start Last Admin Trade Name Lance PRN Reason Stop Dose Admin Acetaminophen 650 mg 05/21/17 18:35 05/25/17 00:15 Tylenol - PO 650 mg Q4H PRN Administration PAIN LEVEL 1-5 Al Hydroxide/Mg Hydroxide 30 ml 05/21/17 21:35 05/24/17 10:37 Mylanta Oral Suspension - PO 30 ml Q6H PRN Administration DYSPEPSIA Carvedilol 6.25 mg 05/22/17 12:15 05/25/17 09:00 Coreg - PO 6.25 mg BID EMILY Administration Docusate Sodium 100 mg 05/23/17 17:45 05/25/17 09:00 Colace - PO 100 mg DAILY EMILY Administration Furosemide 20 mg 05/25/17 10:00 05/25/17 09:00 Lasix - PO 20 mg DAILY EMILY Administration Dextrose/Sodium Chloride 1,000 mls @ 42 mls/hr 05/24/17 00:01 05/25/17 00:15 D5-Ns - IV 42 mls/hr ASDIR EMILY Administration Pantoprazole Sodium 80 mg/ 100 mls @ 10 mls/hr 05/24/17 15:45 05/25/17 11:27 Sodium Chloride IVPB 10 mls/hr Q10H EMILY Administration 8 MG/HR Lactulose 20 gm 05/22/17 13:19 05/25/17 10:30 Cephulac (Oral Use) PO 20 gm TID PRN Administration CONSTIPATION Methylnaltrexone [place] 12 mg 05/22/17 14:00 05/25/17 16:53 Relistor - SQ 12 mg DAILY EMILY Administration Spironolactone 25 mg 05/22/17 12:15 05/25/17 09:00 Aldactone - PO 25 mg DAILY EMILY Administration Tramadol HCl 25 mg 05/24/17 16:40 05/24/17 17:12 Ultram - PO 25 mg Q8H PRN Administration PAIN Valsartan 160 mg 05/24/17 10:00 05/25/17 09:00 Diovan - PO 160 mg DAILY EMILY Administration Home Medications Medication Instructions Recorded NK [No Known Home Medication] 05/21/17 PE: per resident's note Echocardiography dated 05/14/2017 revealed normal LV size and function with severe MR and TR with moderate degree of pulmonary HTN, no MVP or flail leaflet so etiology of valvular pathology is unclear. 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 Patient had no further bleed s/p EGD # Patient is s/p EGD with findings Persistent pyloric channel ulcer at site of prior surgery as per 's findings possible due to taking ryann seltzer plus for post-op abdominal pain/ASA . s/p Cautery applied to oozing sites by , on PPI , clear liquid diet --> advance diet , will consult to re-evaluate, since patient is s/p perforated gastric ulcer post Paulie patch repair 01/2017 by . As per , no active bleed at this time but would like the patient to be evaluated by before she gets discharged. # Normocytic anemia s/p EGD on Protonix for now # Acute Diastolic LV heart failure with severe MR and TR ; Echo as above. on po lasix now , Valsartan , coreg and aldactone will continue. Will monitor Is & Os. # Atypical Chest pain [place] is ruled out ( 3 sets of Troponin Negative) , chest pain resolved , CTA neg , neg trop . no further w/u # Hx of HTN continue meds. DVT Px: SCDs, early ambulation, since heparin is contraindicated to GI bleed
[2017-05-25] MEDS ORDERED: ZOLPIDEM TARTRATE 5 MG TABLET PO ONE (21:03)
[2017-05-26] MEDS: DEXTROSE 5%-NORMAL SALINE 1,000 ML IV SCH (09:23)
[2017-05-26] MEDS: PANTOPRAZOLE SODIUM 80 MG in SODIUM CHLORIDE 100 ML IVPB SCH ×2 (09:23→20:42)
[2017-05-26] MEDS: VALSARTAN 80 MG TABLET (UD) PO SCH (09:25)
[2017-05-26] MEDS: DOCUSATE SODIUM 100 MG CAPSULE (FP) PO SCH (09:26)
[2017-05-26] MEDS: CARVEDILOL 6.25 MG TABLET (FP) PO SCH ×2 (09:26→21:05)
[2017-05-26] MEDS: SPIRONOLACTONE 25 MG TABLET (FP) PO SCH (09:26)
[2017-05-26] MEDS: FUROSEMIDE 20 MG TABLET (FP) PO SCH (09:26)
[2017-05-26] MEDS: LACTULOSE 20 GM/30 ML UDC (FOR ORAL USE ONLY) PO PRN (09:27)
[2017-05-26] MEDS: Methylnaltrexone Bromide 12 MG/0.6 ML KIT SQ SCH (09:28)
--- NOTE | 2017-05-26 11:12 | PN ---
Physical Exam: SUBJECTIVE: Patient seen and examined Comfortable with no acute distress. OBJECTIVE: Vital Signs Temperature 98.2 F 05/26/17 10:00 Pulse Rate 106 H 05/26/17 10:00 Respiratory Rate 18 05/26/17 10:00 Blood Pressure 125/79 05/26/17 10:00 O2 Sat by Pulse Oximetry (%) 100 05/26/17 09:00 GENERAL: The patient is awake, alert, and fully oriented, in no acute distress. HEAD: Normal with no signs of trauma. EYES: PERRL, extraocular movements intact, sclera anicteric, conjunctiva clear. ENT: Ears normal, oropharynx clear without exudates, moist mucous membranes. NECK: Trachea midline, full range of motion, supple. LUNGS: Breath sounds equal, clear to auscultation bilaterally, no wheezes, no crackles, no accessory muscle use. HEART: Regular rate and rhythm, S1, S2 positive, RIVERA 2/6 . ABDOMEN: Soft, nontender, nondistended, normoactive bowel sounds, no guarding, no rebound, no hepatosplenomegaly, no masses. EXTREMITIES: 2+ pulses, warm, well-perfused, no edema. NEUROLOGICAL: Cranial nerves II through XII grossly intact. Normal speech. PSYCH: Normal mood, normal affect. SKIN: Warm, dry, normal turgor, no rashes or lesions noted Laboratory Results - last 24 hr 05/25/17 05/25/17 05/25/17 05:35 11:29 13:00 WBC 4.1 RBC 3.52 L Hgb 9.6 L Hct 30.0 L MCV 85.5 MCHC 32.1 RDW 25.4 H Plt Count 310 MPV 8.0 Neutrophils % 55.0 D Lymphocytes % 27.0 D Monocytes % 12.0 H Eosinophils % 3.0 Basophils % 3.0 H Differential Comment Manual diff done Platelet Estimate Adequate POC Glucometer 87 Stool Occult Blood Negative 05/25/17 05/25/17 05/26/17 17:00 21:21 05:29 WBC RBC Hgb Hct MCV MCHC RDW Plt Count MPV Neutrophils % Lymphocytes % Monocytes % Eosinophils % Basophils % Differential Comment Platelet Estimate POC Glucometer 110 119 93 Stool Occult Blood Active Medications Generic Name Dose Route Start Last Admin Trade Name Freq PRN Reason Stop Dose Admin Acetaminophen 650 mg 05/21/17 18:35 05/25/17 00:15 Tylenol - PO 650 mg Q4H PRN Administration PAIN LEVEL 1-5 Al Hydroxide/Mg Hydroxide 30 ml 05/21/17 21:35 05/24/17 10:37 Mylanta Oral Suspension - PO 30 ml Q6H PRN Administration DYSPEPSIA Carvedilol 6.25 mg 05/22/17 12:15 05/26/17 09:26 Coreg - PO 6.25 mg BID EMILY Administration Docusate Sodium 100 mg 05/23/17 17:45 05/26/17 09:26 Colace - PO 100 mg DAILY EMILY Administration Furosemide 20 mg 05/25/17 10:00 05/26/17 09:26 Lasix - PO 20 mg DAILY EMILY Administration Dextrose/Sodium Chloride 1,000 mls @ 42 mls/hr 05/24/17 00:01 05/26/17 09:23 D5-Ns - IV 42 mls/hr ASDIR EMILY Administration Pantoprazole Sodium 80 mg/ 100 mls @ 10 mls/hr 05/24/17 15:45 05/26/17 09:23 Sodium Chloride IVPB 10 mls/hr Q10H EMILY Administration 8 MG/HR Lactulose 20 gm 05/22/17 13:19 05/26/17 09:27 Cephulac (Oral Use) PO 20 gm TID PRN Administration CONSTIPATION Methylnaltrexone [place] 12 mg 05/22/17 14:00 05/26/17 09:28 Relistor - SQ 12 mg DAILY EMILY Administration Spironolactone 25 mg 05/22/17 12:15 05/26/17 09:26 Aldactone - PO 25 mg DAILY EMILY Administration Tramadol HCl 25 mg 05/24/17 16:40 05/24/17 17:12 Ultram - PO 25 mg Q8H PRN Administration PAIN Valsartan 160 mg 05/24/17 10:00 05/26/17 09:25 Diovan - PO 160 mg DAILY EMILY Administration Home Medications Medication Instructions Recorded NK [No Known Home Medication] 05/21/17 Echocardiography dated 05/14/2017 revealed normal LV size and function with severe MR and TR with moderate degree of pulmonary HTN, no MVP or flail leaflet so etiology of valvular pathology is unclear. 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 # Patient is s/p EGD with findings Persistent pyloric channel ulcer at site of prior surgery as per 's findings possible due to taking ryann seltzer plus for post-op abdominal pain/ASA . s/p Cautery applied to oozing sites by ,no further bleed, on PPI , clear liquid diet , will consult to re-evaluate, since patient is s/p perforated gastric ulcer post Paulie patch repair 01/2017 by . As per , no active bleed at this time. # Normocytic anemia s/p EGD on Protonix for now # Acute Diastolic LV heart failure with severe MR and TR ; Echo as above. on po lasix now , Valsartan , coreg and aldactone will continue. Will monitor Is & Os. # Atypical Chest pain [place] is ruled out ( 3 sets of Troponin Negative) , chest pain resolved , CTA neg , neg trop . no further w/u # Hx of HTN continue meds. DVT Px: SCDs, early ambulation, since heparin is contraindicated to GI bleed Visit type - Emergency Visit Emergency Visit: Yes ED Registration Date: 05/21/17 Care time: The patient presented to the Emergency Department on the above date and was hospitalized for further evaluation of their emergent condition. - New Patient This patient is new to me today: No - Critical Care Critical Care patient: No
[2017-05-26] MEDS: traMADol HCL 50 MG TABLET PO PRN (20:39)
[2017-05-26] MEDS ORDERED: diphenhydrAMINE HCL 25 MG CAPSULE (FP) PO ONE (21:12)
[2017-05-27] MEDS: DEXTROSE 5%-NORMAL SALINE 1,000 ML IV SCH (02:11)
[2017-05-27] MEDS: PANTOPRAZOLE SODIUM 80 MG in SODIUM CHLORIDE 100 ML IVPB SCH ×5 (04:07→23:45)
[2017-05-27] MEDS: traMADol HCL 50 MG TABLET PO PRN (05:40)
[2017-05-27 06:48] LABS: EOSINOPHIL 1.4 % (0-4.5); MCHC 32.3 g/dl (32.0-36.0); MEAN CELL VOLUME 86.5 fl (80-96); MEAN PLT VOLUME 7.8 fl (7.5-11.1); NEUTROPHILS 76.6 % (42.8-82.8); PLATELET COUNT 374 K/MM3 (134-434); WHITE BLOOD COUNT 9.3 K/mm3 (4.0-10.0)
[2017-05-27 07:24] LABS: ALBUMIN 3.1 g/dl (3.4-5.0); ANION GAP 8 (8-16); CALCIUM 9.2 mg/dL (8.5-10.1); CO2 29 mmol/L (21-32); GLUCOSE,RANDOM 79 mg/dL (74-106); MAGNESIUM 2.5 mg/dL (1.8-2.4)
[2017-05-27 07:28] LABS: ALK PHOS 165 U/L (45-117); BILIRUBIN,TOTAL 0.4 mg/dL (0.2-1.0); CREATININE 0.5 mg/dL (0.55-1.02); SGOT/AST 14 U/L (15-37); SGPT/ALT 16 U/L (12-78); TOT PROT 7.5 g/dl (6.4-8.2)
--- NOTE | 2017-05-27 08:13 | PN ---
Physical Exam: SUBJECTIVE: Patient seen and examined at bedside. No acute events overnight. Pt continues to complain of headache. No other complaints at this time. Pt denies CP, SOB, abd pain, nausea, vomiting, diarrhea, dysuria. OBJECTIVE: Vital Signs Period Temp Pulse Resp BP Sys/Suárez Pulse Ox Last 24 Hr 98.2 F-100.3 F 76-106 14-18 116-125/65-90 96-100 GENERAL: The patient is awake, alert, and fully oriented, in no acute distress. HEAD: Normal with no signs of trauma. EYES: PERRL, extraocular movements intact, sclera anicteric, conjunctiva clear. No ptosis. ENT: Ears normal, nares patent, oropharynx clear without exudates, moist mucous membranes. NECK: Trachea midline, full range of motion, supple. LUNGS: Breath sounds equal, clear to auscultation bilaterally, no wheezes, no crackles, no accessory muscle use. HEART: Regular rate and rhythm, S1, S2 without murmur, rub or gallop. ABDOMEN: Soft, nontender, nondistended, normoactive bowel sounds, no guarding, no rebound, no hepatosplenomegaly, no masses. EXTREMITIES: 2+ pulses, warm, well-perfused, no edema. NEUROLOGICAL: Cranial nerves II through XII grossly intact. Normal speech, gait not observed. PSYCH: Normal mood, normal affect. SKIN: Warm, dry, normal turgor, no rashes or lesions noted Laboratory Results - last 24 hr 05/26/17 05/26/17 05/27/17 17:51 20:49 05:44 WBC RBC Hgb Hct MCV MCH MCHC RDW Plt Count MPV Neutrophils % Lymphocytes % Monocytes % Eosinophils % Basophils % POC Glucometer 116 104 98 05/27/17 05:45 WBC 9.3 D RBC 3.63 Hgb 10.2 L Hct 31.4 L MCV 86.5 MCH 28.0 MCHC 32.3 RDW 25.0 H Plt Count 374 D MPV 7.8 Neutrophils % 76.6 D Lymphocytes % 13.3 D Monocytes % 7.7 Eosinophils % 1.4 Basophils % 1.0 POC Glucometer Active Medications Generic Name Dose Route Start Last Admin Trade Name Freq PRN Reason Stop Dose Admin Acetaminophen 650 mg 05/21/17 18:35 05/25/17 00:15 Tylenol - PO 650 mg Q4H PRN Administration PAIN LEVEL 1-5 Al Hydroxide/Mg Hydroxide 30 ml 05/21/17 21:35 05/24/17 10:37 Mylanta Oral Suspension - PO 30 ml Q6H PRN Administration DYSPEPSIA Carvedilol 6.25 mg 05/22/17 12:15 05/26/17 21:05 Coreg - PO 6.25 mg BID EMILY Administration Docusate Sodium 100 mg 05/23/17 17:45 05/26/17 09:26 Colace - PO 100 mg DAILY EMILY Administration Furosemide 20 mg 05/25/17 10:00 05/26/17 09:26 Lasix - PO 20 mg DAILY EMILY Administration Dextrose/Sodium Chloride 1,000 mls @ 42 mls/hr 05/24/17 00:01 05/27/17 02:11 D5-Ns - IV Not Given ASDIR EMILY Pantoprazole Sodium 80 mg/ 100 mls @ 10 mls/hr 05/24/17 15:45 05/27/17 04:07 Sodium Chloride IVPB Not Given Q10H EMILY 8 MG/HR Lactulose 20 gm 05/22/17 13:19 05/26/17 09:27 Cephulac (Oral Use) PO 20 gm TID PRN Administration CONSTIPATION Methylnaltrexone [place] 12 mg 05/22/17 14:00 05/26/17 09:28 Relistor - SQ 12 mg DAILY EMILY Administration Spironolactone 25 mg 05/22/17 12:15 05/26/17 09:26 Aldactone - PO 25 mg DAILY EMILY Administration Tramadol HCl 25 mg 05/24/17 16:40 05/27/17 05:40 Ultram - PO 25 mg Q8H PRN Administration PAIN Valsartan 160 mg 05/24/17 10:00 05/26/17 09:25 Diovan - PO 160 mg DAILY EMILY Administration ASSESSMENT/PLAN: 31 y/o F 31yo F with PMHx of severe Fe defic anemia, duodenal ulcer s/p gram patch repair, hemorrhagic ovarian cyst, systolic heart failure who presented to hospital with chest and abdominal pain. #Normocytic Anemia in setting of gastric ulcer history -GI consult appreciated -EGD showed bleeding ulcer -PPI: Protonix 80mg IVPB Q10 -Pending final decision from surgery -Hgb <3 on last adm s/p transfusion; w/u by Dr Conrad -Hb 10, Hct 30.4 today -B12 1712, folate 10 -r/o ZES (Gastrin 382) -EGD shows no evidence of ZES -FOBT neg x 1 -Pending assessment by surg tomorrow #Headache -Tylenol 650 mg PO Q4 PRN #Atypical Chest pain: Resolved -R/o ACS -Trop neg x3 -EKG neg for acs -R/o PE -D dimer pos (1056) -CTA neg -R/o PNA -Symptoms inconsistent -no evidence on CXR -WBC wnl #Acute on Chronic syst and diastolic CHF exacerbation in setting of severe valvular disease -BNP >7000 -CXR no acute pathology -Previous TTE showed mildly dilated atria, severe TR MR, mildly reduced RV fxn, and mild global systolic LV hypokinesis -Coreg 6.25mg PO BID, Diovan 160mg PO Daily, Spironolactone 25mg PO Daily, Lasix 40mg PO Daily -fluid restriction, strict I and O -daily weights -previous suspicion of connective tissue d/o by Rheum Dr Menchaca, unable to perform cards MRI due to Gi clips; discussed cardiac biopsy. #Hemorrhagic ovarian cyst -CA-125 elevated at 54 on prev visit -Previous abd/pelvic CT with contrast and TVS neg for intra-abdominal pathology -F/U KUB result which showed no acute pathology -f/u as out pt #Rheumatoid -RF high, r/o anti-phospholipid syndrome, infiltrative disease, sarcoidosis as per Rheum attending -CCP neg -f/u as out pt #Hypophosphatemia: resolved -Phos now 4.8 #DVT ppx -SCD -Heparin held d/t bleed risk #GI ppx -Pt on Protonix #FEN -soft diet #Dispo: adm tele. Problem List - Problems (1) Chest pain Code(s): R07.9 - CHEST PAIN, UNSPECIFIED Qualifiers: Chest pain type: precordial pain Qualified Code(s): R07.2 - Precordial pain (2) Abdominal pain Code(s): R10.9 - UNSPECIFIED ABDOMINAL PAIN Qualifiers: Abdominal location: lower abdomen, unspecified Qualified Code(s): R10.30 - Lower abdominal pain, unspecified (3) Acute diastolic congestive heart failure Code(s): I50.31 - ACUTE DIASTOLIC (CONGESTIVE) HEART FAILURE (4) Edema of lower extremity Code(s): R60.0 - LOCALIZED EDEMA (5) Anemia Code(s): D64.9 - ANEMIA, UNSPECIFIED Qualifiers: Anemia type: iron deficiency Iron deficiency anemia type: chronic blood loss Qualified Code(s): D50.0 - Iron deficiency anemia secondary to blood loss (chronic) (6) Severe mitral regurgitation Code(s): I34.0 - NONRHEUMATIC MITRAL (VALVE) INSUFFICIENCY (7) Severe tricuspid regurgitation Code(s): I07.1 - RHEUMATIC TRICUSPID INSUFFICIENCY (8) Systemic involvement of connective tissue Code(s): M35.9 - SYSTEMIC INVOLVEMENT OF CONNECTIVE TISSUE, UNSPECIFIED Visit type - Emergency Visit Emergency Visit: Yes ED Registration Date: 05/21/17 Care time: The patient presented to the Emergency Department on the above date and was hospitalized for further evaluation of their emergent condition. - New Patient This patient is new to me today: No - Critical Care Critical Care patient: No
--- NOTE | 2017-05-27 10:17 | PN ---
Teaching Attending Note Name of Resident: Taras Mata ATTENDING PHYSICIAN STATEMENT I saw and evaluated the patient. I reviewed the resident's note and discussed the case with the resident. I agree with the resident's findings and plan as documented. SUBJECTIVE: Comfortable , no further bleed. OBJECTIVE: Vital Signs Temperature 98.2 F 05/27/17 05:46 Pulse Rate 76 05/27/17 05:46 Respiratory Rate 18 05/27/17 05:46 Blood Pressure 124/84 05/27/17 05:46 O2 Sat by Pulse Oximetry (%) 100 05/26/17 22:00 CBCD WBC 9.3 K/mm3 (4.0-10.0) D 05/27/17 05:45 RBC 3.63 M/mm3 (3.60-5.2) 05/27/17 05:45 Hgb 10.2 GM/dL (10.7-15.3) L 05/27/17 05:45 Hct 31.4 % (32.4-45.2) L 05/27/17 05:45 MCV 86.5 fl (80-96) 05/27/17 05:45 MCHC 32.3 g/dl (32.0-36.0) 05/27/17 05:45 RDW 25.0 % (11.6-15.6) H 05/27/17 05:45 Plt Count 374 K/MM3 (134-434) D 05/27/17 05:45 MPV 7.8 fl (7.5-11.1) 05/27/17 05:45 CMP Sodium 140 mmol/L (136-145) 05/27/17 05:45 Potassium 5.0 mmol/L (3.5-5.1) 05/27/17 05:45 Chloride 103 mmol/L (98-107) 05/27/17 05:45 Carbon Dioxide 29 mmol/L (21-32) 05/27/17 05:45 Anion Gap 8 (8-16) 05/27/17 05:45 BUN 15 mg/dL (7-18) D 05/27/17 05:45 Creatinine 0.5 mg/dL (0.55-1.02) L D 05/27/17 05:45 Creat Clearance w eGFR > 60 (>60) 05/27/17 05:45 Random Glucose 79 mg/dL (74-106) 05/27/17 05:45 Calcium 9.2 mg/dL (8.5-10.1) 05/27/17 05:45 Total Bilirubin 0.4 mg/dL (0.2-1.0) D 05/27/17 05:45 AST 14 U/L (15-37) L 05/27/17 05:45 ALT 16 U/L (12-78) 05/27/17 05:45 Alkaline Phosphatase 165 U/L (45-117) H D 05/27/17 05:45 Total Protein 7.5 g/dl (6.4-8.2) 05/27/17 05:45 Albumin 3.1 g/dl (3.4-5.0) L 05/27/17 05:45 CARDIAC ENZYMES Creatine Kinase 43 IU/L (26-192) 05/22/17 00:53 Troponin I 0.03 ng/ml (0.00-0.05) 05/22/17 00:53 Current Medications Generic Name Dose Route Start Last Admin Trade Name Lance PRN Reason Stop Dose Admin Acetaminophen 650 mg 05/21/17 18:35 05/25/17 00:15 Tylenol - PO 650 mg Q4H PRN Administration PAIN LEVEL 1-5 Al Hydroxide/Mg Hydroxide 30 ml 05/21/17 21:35 05/24/17 10:37 Mylanta Oral Suspension - PO 30 ml Q6H PRN Administration DYSPEPSIA Carvedilol 6.25 mg 05/22/17 12:15 05/26/17 21:05 Coreg - PO 6.25 mg BID EMILY Administration Docusate Sodium 100 mg 05/23/17 17:45 05/26/17 09:26 Colace - PO 100 mg DAILY EMILY Administration Furosemide 20 mg 05/25/17 10:00 05/26/17 09:26 Lasix - PO 20 mg DAILY EMILY Administration Dextrose/Sodium Chloride 1,000 mls @ 42 mls/hr 05/24/17 00:01 05/27/17 02:11 D5-Ns - IV Not Given ASDIR EMILY Pantoprazole Sodium 80 mg/ 100 mls @ 10 mls/hr 05/24/17 15:45 05/27/17 04:07 Sodium Chloride IVPB Not Given Q10H EMILY 8 MG/HR Lactulose 20 gm 05/22/17 13:19 05/26/17 09:27 Cephulac (Oral Use) PO 20 gm TID PRN Administration CONSTIPATION Methylnaltrexone [place] 12 mg 05/22/17 14:00 05/26/17 09:28 Relistor - SQ 12 mg DAILY EMILY Administration Spironolactone 25 mg 05/22/17 12:15 05/26/17 09:26 Aldactone - PO 25 mg DAILY EMILY Administration Tramadol HCl 25 mg 05/24/17 16:40 05/27/17 05:40 Ultram - PO 25 mg Q8H PRN Administration PAIN Valsartan 160 mg 05/24/17 10:00 05/26/17 09:25 Diovan - PO 160 mg DAILY EMILY Administration Home Medications Medication Instructions Recorded NK [No Known Home Medication] 05/21/17 PE: per resident' snote Echocardiography dated 05/14/2017 revealed normal LV size and function with severe MR and TR with moderate degree of pulmonary HTN, no MVP or flail leaflet so etiology of valvular pathology is unclear. 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 # No further Bleeing noted ;Patient is s/p EGD with findings Persistent pyloric channel ulcer at site of prior surgery as per 's findings possible due to taking ryann seltzer plus for post-op abdominal pain/ASA . s/p Cautery applied to oozing sites by , on PPI , clear liquid diet , will consult to re-evaluate, since patient is s/p perforated gastric ulcer post Paulie patch repair 01/2017 by . As per , no active bleed at this time. # Normocytic anemia s/p EGD on Protonix for now # Acute Diastolic LV heart failure with severe MR and TR ; Echo as above. on po lasix now , Valsartan , coreg and aldactone will continue. Will monitor Is & Os. # Atypical Chest pain WI is ruled out ( 3 sets of Troponin Negative) , chest pain resolved , CTA neg , neg trop . no further w/u # Hx of HTN continue meds. DVT Px: SCDs, early ambulation, since heparin is contraindicated to GI bleed
--- NOTE | 2017-05-27 10:27 | PN ---
Progress Note, Physician History of Present Illness: Sxs resolved with diuresis and afterload reduction. s/p EGD demonstrating persistent pyloric channel ulcer at site of prior surgery with cautery applied to oozing sites, has been using salicylates ([place]), awaiting surgery input. - Current Medication List Current Medications: Active Medications Acetaminophen (Tylenol -) 650 mg PO Q4H PRN PRN Reason: PAIN LEVEL 1-5 Last Admin: 05/25/17 00:15 Dose: 650 mg Al Hydroxide/Mg Hydroxide (Mylanta Oral Suspension -) 30 ml PO Q6H PRN PRN Reason: DYSPEPSIA Last Admin: 05/24/17 10:37 Dose: 30 ml Carvedilol (Coreg -) 6.25 mg PO BID [facility] Last Admin: 05/26/17 21:05 Dose: 6.25 mg Docusate Sodium (Colace -) 100 mg PO DAILY [facility] Last Admin: 05/26/17 09:26 Dose: 100 mg Furosemide (Lasix -) 20 mg PO DAILY [facility] Last Admin: 05/26/17 09:26 Dose: 20 mg Dextrose/Sodium Chloride (D5-Ns -) 1,000 mls @ 42 mls/hr IV ASDIR EMILY Last Admin: 05/27/17 02:11 Dose: Not Given Pantoprazole Sodium 80 mg/ (Sodium Chloride) 100 mls @ 10 mls/hr IVPB Q10H EMILY PRN Reason: 8 MG/HR Last Admin: 05/27/17 04:07 Dose: Not Given Lactulose (Cephulac (Oral Use)) 20 gm PO TID PRN PRN Reason: CONSTIPATION Last Admin: 05/26/17 09:27 Dose: 20 gm Methylnaltrexone [place] (Relistor -) 12 mg SQ DAILY [facility] Last Admin: 05/26/17 09:28 Dose: 12 mg Spironolactone (Aldactone -) 25 mg PO DAILY [facility] Last Admin: 05/26/17 09:26 Dose: 25 mg Tramadol HCl (Ultram -) 25 mg PO Q8H PRN PRN Reason: PAIN Last Admin: 05/27/17 05:40 Dose: 25 mg Valsartan (Diovan -) 160 mg PO DAILY [facility] Last Admin: 05/26/17 09:25 Dose: 160 mg - Objective Vital Signs: Vital Signs Temperature 98.2 F 07/09/17 05:46 Pulse Rate 76 05/27/17 05:46 Respiratory Rate 18 05/27/17 05:46 Blood Pressure 124/84 05/27/17 05:46 O2 Sat by Pulse Oximetry (%) 100 05/26/17 22:00 Constitutional: Yes: No Distress, Calm, Thin Neck: Yes: Supple Cardiovascular: Yes: Regular Rate and Rhythm, Murmur (2/6 SM) Gastrointestinal: Yes: Normal Bowel Sounds, Soft Edema: No Labs: CBC, BMP 05/27/17 05:45 05/27/17 05:45 INR, PTT INR 1.25 (0.82-1.09) H 05/21/17 10:00 Problem List - Problems (1) Chest pain Code(s): R07.9 - CHEST PAIN, UNSPECIFIED Qualifiers: Chest pain type: precordial pain Qualified Code(s): R07.2 - Precordial pain (2) Acute diastolic congestive heart failure Code(s): I50.31 - ACUTE DIASTOLIC (CONGESTIVE) HEART FAILURE (3) Anemia Code(s): D64.9 - ANEMIA, UNSPECIFIED Qualifiers: Anemia type: iron deficiency Iron deficiency anemia type: chronic blood loss Qualified Code(s): D50.0 - Iron deficiency anemia secondary to blood loss (chronic) (4) Severe mitral regurgitation Code(s): I34.0 - NONRHEUMATIC MITRAL (VALVE) INSUFFICIENCY (5) Severe tricuspid regurgitation Code(s): I07.1 - RHEUMATIC TRICUSPID INSUFFICIENCY (6) Hypertensive cardiomegaly with heart failure Code(s): I11.0 - HYPERTENSIVE HEART DISEASE WITH HEART FAILURE (7) Perforated gastric ulcer Code(s): K25.5 - CHRONIC OR UNSPECIFIED GASTRIC ULCER WITH PERFORATION Qualifiers: Gastric ulcer chronicity: chronic Qualified Code(s): K25.5 - Chronic or unspecified gastric ulcer with perforation Assessment/Plan Echocardiography dated 05/14/2017 revealed normal LV size and function with severe MR and TR with moderate degree of pulmonary HTN, no MVP or flail leaflet so etiology of valvular pathology is unclear 05/18/2017 Mild LV and RV decreased fxn, mild JAMES, severe MR, TR, mild AR 1. Acute diastolic LV failure referable to valvular pathology MR, TR exacerbated by HTN resolved 2. Hypertension, hypertensive cardiovascular disease 3. MR, severe in severity etiology of which to be determined, no evidence of MVP or flail leaflets 4. TR, severe in severity with moderate degree of pulmonary HTN, RVSP of 52 mmHg 5. Severe anemia, post transfusion, referable to #6 6. Post recent perforated gastric ulcer post Paulie patch repair 01/2017 with persistent pyloric channel ulcer at site of prior surgery post cautery at oozing sites PLAN: 1. Continue Lasix 20 qd with monitor renal fxn, electrolytes and diuretic response 2. Continue carvedilol 6.25 bid, Diovan 160 qd and spirinolactone 25 qd 3. Monitor Hg and maintain equal or greater than 8.0 4. NSAID avoidance, change to po Protonix, await surgeon Dr. Robin's input, smoking cessation 5. Plan for f/u as outpatient for BALBINA to further define valvular cardiomyopathy
[2017-05-27] MEDS: FUROSEMIDE 20 MG TABLET (FP) PO SCH (10:39)
[2017-05-27] MEDS: SPIRONOLACTONE 25 MG TABLET (FP) PO SCH (10:39)
[2017-05-27] MEDS: DOCUSATE SODIUM 100 MG CAPSULE (FP) PO SCH (10:39)
[2017-05-27] MEDS: CARVEDILOL 6.25 MG TABLET (FP) PO SCH ×2 (10:39→21:30)
[2017-05-27] MEDS: VALSARTAN 80 MG TABLET (UD) PO SCH (10:39)
[2017-05-27] MEDS ORDERED: PT OWN MED DRAWER 7, Y5N ONE (10:45)
[2017-05-27] MEDS: Methylnaltrexone Bromide 12 MG/0.6 ML KIT SQ SCH (12:32)
[2017-05-27] MEDS: ACETAMINOPHEN 325 MG TABLET (FP) PO PRN (15:51)
[2017-05-28] MEDS: DEXTROSE 5%-NORMAL SALINE 1,000 ML IV SCH
[2017-05-28 07:30] LABS: BASOPHIL 1.6 % (0-2.0); MCH 28.4 pg (25.7-33.7); MCHC 32.9 g/dl (32.0-36.0); MEAN CELL VOLUME 86.3 fl (80-96); MEAN PLT VOLUME 8.1 fl (7.5-11.1); NEUTROPHILS 71.9 % (42.8-82.8); PLATELET COUNT 445 K/MM3 (134-434); RDW 25.2 % (11.6-15.6); WHITE BLOOD COUNT 6.7 K/mm3 (4.0-10.0)
[2017-05-28 08:16] LABS: ANION GAP 5 (8-16); CALCIUM 10.2 mg/dL (8.5-10.1); CO2 30 mmol/L (21-32); CREATININE 0.5 mg/dL (0.55-1.02); GLUCOSE,RANDOM 72 mg/dL (74-106)
[2017-05-28] MEDS ORDERED: PT OWN MED DRAWER 7, Y5N ONE (09:30)
[2017-05-28] MEDS: SPIRONOLACTONE 25 MG TABLET (FP) PO SCH (09:32)
[2017-05-28] MEDS: VALSARTAN 80 MG TABLET (UD) PO SCH (09:32)
[2017-05-28] MEDS: FUROSEMIDE 20 MG TABLET (FP) PO SCH (09:32)
[2017-05-28] MEDS: CARVEDILOL 6.25 MG TABLET (FP) PO SCH (09:32)
[2017-05-28] MEDS: DOCUSATE SODIUM 100 MG CAPSULE (FP) PO SCH (09:33)
--- NOTE | 2017-05-28 10:23 | PN ---
Progress Note, Physician History of Present Illness: Sxs resolved with diuresis and afterload reduction. s/p EGD demonstrating persistent pyloric channel ulcer at site of prior surgery with cautery applied to oozing sites, has been using salicylates ([place]), awaiting surgery input. - Current Medication List Current Medications: Active Medications Acetaminophen (Tylenol -) 650 mg PO Q4H PRN PRN Reason: PAIN LEVEL 1-5 Last Admin: 05/27/17 15:51 Dose: 650 mg Al Hydroxide/Mg Hydroxide (Mylanta Oral Suspension -) 30 ml PO Q6H PRN PRN Reason: DYSPEPSIA Last Admin: 05/24/17 10:37 Dose: 30 ml Carvedilol (Coreg -) 6.25 mg PO BID [facility] Last Admin: 05/28/17 09:32 Dose: 6.25 mg Docusate Sodium (Colace -) 100 mg PO DAILY [facility] Last Admin: 05/28/17 09:33 Dose: 100 mg Furosemide (Lasix -) 20 mg PO DAILY [facility] Last Admin: 05/28/17 09:32 Dose: 20 mg Dextrose/Sodium Chloride (D5-Ns -) 1,000 mls @ 42 mls/hr IV ASDIR [facility] Last Admin: 05/28/17 00:00 Dose: Not Given Pantoprazole Sodium 80 mg/ (Sodium Chloride) 100 mls @ 10 mls/hr IVPB Q10H EMILY PRN Reason: 8 MG/HR Last Admin: 05/27/17 23:45 Dose: Not Given Lactulose (Cephulac (Oral Use)) 20 gm PO TID PRN PRN Reason: CONSTIPATION Last Admin: 05/26/17 09:27 Dose: 20 gm Methylnaltrexone [place] (Relistor -) 12 mg SQ DAILY [facility] Last Admin: 05/27/17 12:32 Dose: 12 mg Spironolactone (Aldactone -) 25 mg PO DAILY [facility] Last Admin: 05/28/17 09:32 Dose: 25 mg Valsartan (Diovan -) 160 mg PO DAILY [facility] Last Admin: 05/28/17 09:32 Dose: 160 mg - Objective Vital Signs: Vital Signs Temperature 98.2 F 05/28/17 05:36 Pulse Rate 91 H 05/28/17 05:36 Respiratory Rate 16 05/28/17 05:36 Blood Pressure 104/67 07/10/17 05:36 O2 Sat by Pulse Oximetry (%) 100 05/27/17 22:00 Labs: CBC, BMP 05/28/17 05:40 05/28/17 05:40 INR, PTT INR 1.25 (0.82-1.09) H 05/21/17 10:00 Problem List - Problems (1) Chest pain Code(s): R07.9 - CHEST PAIN, UNSPECIFIED Qualifiers: Chest pain type: precordial pain Qualified Code(s): R07.2 - Precordial pain (2) Acute diastolic congestive heart failure Code(s): I50.31 - ACUTE DIASTOLIC (CONGESTIVE) HEART FAILURE (3) Anemia Code(s): D64.9 - ANEMIA, UNSPECIFIED Qualifiers: Anemia type: iron deficiency Iron deficiency anemia type: chronic blood loss Qualified Code(s): D50.0 - Iron deficiency anemia secondary to blood loss (chronic) (4) Severe mitral regurgitation Code(s): I34.0 - NONRHEUMATIC MITRAL (VALVE) INSUFFICIENCY (5) Severe tricuspid regurgitation Code(s): I07.1 - RHEUMATIC TRICUSPID INSUFFICIENCY (6) Hypertensive cardiomegaly with heart failure Code(s): I11.0 - HYPERTENSIVE HEART DISEASE WITH HEART FAILURE (7) Perforated gastric ulcer Code(s): K25.5 - CHRONIC OR UNSPECIFIED GASTRIC ULCER WITH PERFORATION Qualifiers: Gastric ulcer chronicity: chronic Qualified Code(s): K25.5 - Chronic or unspecified gastric ulcer with perforation (8) Hyperkalemia Code(s): E87.5 - HYPERKALEMIA Assessment/Plan Echocardiography dated 05/14/2017 revealed normal LV size and function with severe MR and TR with moderate degree of pulmonary HTN, no MVP or flail leaflet so etiology of valvular pathology is unclear 05/18/2017 Mild LV and RV decreased fxn, mild JAMES, severe MR, TR, mild AR 1. Acute diastolic LV failure referable to valvular pathology MR, TR exacerbated by HTN resolved 2. Hypertension, hypertensive cardiovascular disease 3. MR, severe in severity etiology of which to be determined, no evidence of MVP or flail leaflets 4. TR, severe in severity with moderate degree of pulmonary HTN, RVSP of 52 mmHg 5. Severe anemia, post transfusion, referable to #6 6. Post recent perforated gastric ulcer post Paulie patch repair 01/2017 with persistent pyloric channel ulcer at site of prior surgery post cautery at oozing sites 7. Hyperkalemia PLAN: 1. Continue Lasix 20 qd and d/c spirinolactone 25 qd with monitor renal fxn, electrolytes and diuretic response 2. Continue carvedilol 6.25 bid and Diovan 160 qd 3. Monitor Hg and maintain equal or greater than 8.0 4. NSAID avoidance, change to po Protonix, await surgeon Dr. Robin's input, smoking cessation 5. Plan for f/u as outpatient for BALBINA to further define valvular cardiomyopathy
[2017-05-28] MEDS: Methylnaltrexone Bromide 12 MG/0.6 ML KIT SQ SCH (11:28)
[2017-05-28] MEDS: PANTOPRAZOLE SODIUM 80 MG in SODIUM CHLORIDE 100 ML IVPB SCH (11:28)
--- NOTE | 2017-05-28 11:54 | PN ---
Progress Note (short form) - Note Progress Note: Attending Surgeon Seen in f/u and well known to me Chart reviewed; hospital course reviewed. No c/o; tolerating diet VSS Af abdomen-benign; wound healed; no hernia labs/sediment remediation consultant notes reviewed IMP: s/p UGIB and tx. endoscopy PLAN: Surgically stable for d/c; she knows not to use any ASA containing products; again smoking cessation encouraged; previous CT scan findings are not c/w the clinical picture; she may f/u as an outpatient as necessary. Malick Robin MD FACS
--- NOTE | 2017-05-28 12:09 | PN ---
Progress Note, Physician Chief Complaint: Events noted Not in distress History of Present Illness: Patient was seen and examined. Awake and alert. Chart was reviewed Denies chest pain, SOB or palpitations - Current Medication List Current Medications: Active Medications Acetaminophen (Tylenol -) 650 mg PO Q4H PRN PRN Reason: PAIN LEVEL 1-5 Last Admin: 05/27/17 15:51 Dose: 650 mg Al Hydroxide/Mg Hydroxide (Mylanta Oral Suspension -) 30 ml PO Q6H PRN PRN Reason: DYSPEPSIA Last Admin: 05/24/17 10:37 Dose: 30 ml Carvedilol (Coreg -) 6.25 mg PO BID [facility] Last Admin: 05/28/17 09:32 Dose: 6.25 mg Docusate Sodium (Colace -) 100 mg PO DAILY [facility] Last Admin: 05/28/17 09:33 Dose: 100 mg Furosemide (Lasix -) 20 mg PO DAILY [facility] Last Admin: 05/28/17 09:32 Dose: 20 mg Dextrose/Sodium Chloride (D5-Ns -) 1,000 mls @ 42 mls/hr IV ASDIR [facility] Last Admin: 05/28/17 00:00 Dose: Not Given Pantoprazole Sodium 80 mg/ (Sodium Chloride) 100 mls @ 10 mls/hr IVPB Q10H EMILY PRN Reason: 8 MG/HR Last Admin: 05/28/17 11:28 Dose: Not Given Lactulose (Cephulac (Oral Use)) 20 gm PO TID PRN PRN Reason: CONSTIPATION Last Admin: 05/26/17 09:27 Dose: 20 gm Methylnaltrexone [place] (Relistor -) 12 mg SQ DAILY [facility] Last Admin: 05/28/17 11:28 Dose: 12 mg Valsartan (Diovan -) 160 mg PO DAILY [facility] Last Admin: 05/28/17 09:32 Dose: 160 mg - Objective Vital Signs: Vital Signs Temperature 98.2 F 05/28/17 05:36 Pulse Rate 91 H 05/28/17 05:36 Respiratory Rate 16 05/28/17 05:36 Blood Pressure 104/67 05/28/17 05:36 O2 Sat by Pulse Oximetry (%) 100 05/27/17 22:00 Neck: Yes: Supple Cardiovascular: Yes: Regular Rate and Rhythm, Murmur (2/6 SM), S1, S2 Respiratory: Yes: CTA Bilaterally Gastrointestinal: Yes: Normal Bowel Sounds, Soft. No: Tenderness Edema: No Additional Findings/Remarks: Review of System HEENT: No headache, photophobia, blurring of vision CARD: No chest pain, palpitations, SOB RESP: Denies cough, sputum production, hemoptysis ABD: No nausea, vomiting, diarrhea, abdominal pain, melena, hematemesis MUSC: No joint pains UROL: No urinary symptoms NEURO: No seizure, syncope Labs: CBC, BMP 05/28/17 05:40 05/28/17 05:40 Assessment/Plan 1. Acute diastolic LV failure referable to valvular pathology - MR and TR 2. Hypertension/hypertensive cardiovascular disease 3. MR - severe in severity etiology of which to be determined - no evidence of MVP or flail leaflets 4. TR - severe in severity with moderate degree of pulmonary HTN (RVSP of 52 mmHg) 5. Severe anemia, post transfusion, referable to #6 6. Post recent perforated gastric ulcer post Paulie patch repair 01/2017 with persistent pyloric channel ulcer at site of prior surgery post cautery PLAN: 1. Continue Lasix 20 mg qd with monitoring renal function and electrolytes 2. Continue Carvedilol 6.25 mg bid, Diovan 160 mg qd and Spirinolactone 25 mg qd 3. Monitor Hgb/Hct 4. Avoid NSAID. Dr. Robin's input noted and again counseled smoking cessation 5. Plan for follow up as outpatient for BALBINA to further define valvular pathology May be discharged cardiac standpoint Major Monterroso MD
[2017-05-28 12:44] VITALS: BP 115/68; PULSE 105; TEMP 98.4
--- NOTE | 2017-05-28 15:33 | DS ---
Physical Exam: SUBJECTIVE: Patient seen and examined at bedside. No acute events overnight. No complaints at this time. Pt denies headache, cp, sob, abd pain, diarrhea, dysuria. OBJECTIVE: Vital Signs Period Temp Pulse Resp BP Sys/Suárez Pulse Ox Last 24 Hr 98.0 F-98.4 F 91-105 16-20 104-115/62-79 99-100 PHYSICAL EXAM GENERAL: The patient is awake, alert, and fully oriented, in no acute distress. HEAD: Normal with no signs of trauma. EYES: PERRL, extraocular movements intact, sclera anicteric, conjunctiva clear. ENT: Ears normal, nares patent, oropharynx clear without exudates, moist mucous membranes. NECK: Trachea midline, full range of motion, supple. LUNGS: Breath sounds equal, clear to auscultation bilaterally, no wheezes, no crackles, no accessory muscle use. HEART: Regular rate and rhythm, S1, S2 without murmur, rub or gallop. ABDOMEN: Soft, nontender, nondistended, normoactive bowel sounds, no guarding, no rebound, no hepatosplenomegaly, no masses. EXTREMITIES: 2+ pulses, warm, well-perfused, no edema. NEUROLOGICAL: Cranial nerves II through XII grossly intact. Normal speech, gait not observed. PSYCH: Normal mood, normal affect. SKIN: Warm, dry, normal turgor, no rashes or lesions noted. LABS Laboratory Results - last 24 hr 05/26/17 05/26/17 05/27/17 12:03 12:05 20:43 WBC RBC Hgb Hct MCV MCH MCHC RDW Plt Count MPV Neutrophils % Lymphocytes % Monocytes % Eosinophils % Basophils % Sodium Potassium Chloride Carbon Dioxide Anion Gap BUN Creatinine POC Glucometer 429 133 Random Glucose Calcium Stool Occult Blood Negative 05/28/17 05/28/17 05/28/17 05:40 05:40 12:00 WBC 6.7 RBC 3.80 Hgb 10.8 Hct 32.7 MCV 86.3 MCH 28.4 MCHC 32.9 RDW 25.2 H Plt Count 445 H MPV 8.1 Neutrophils % 71.9 Lymphocytes % 17.5 D Monocytes % 7.0 Eosinophils % 2.0 Basophils % 1.6 Sodium 136 Potassium 5.2 H Chloride 101 Carbon Dioxide 30 Anion Gap 5 L BUN 17 Creatinine 0.5 L POC Glucometer 87 Random Glucose 72 L Calcium 10.2 H Stool Occult Blood HOSPITAL COURSE: Date of Admission:05/21/17 Date of Discharge: 05/28/17 29 y/o F 31yo F with PMHx of severe Fe defic anemia, duodenal ulcer s/p gram patch repair, hemorrhagic ovarian cyst, systolic heart failure who presented to hospital with chest and abdominal pain. Her atypical chest pain raised suspicion of ACS or PE. ACS was ruled out after neg trop x 3 and neg EKG. She had a positive D-dimer, but PE was ruled out on CTA. The patient suffers from systolic heart failure which has been poorly controlled largely because of noncompliance. She left the hospital AMA from her recent admission and had not been seeing a leather coater or taking appropriate medications. She was also found to have normocytic anemia in setting of gastric ulcer history. She was seen by GI who then did an EGD and confirmed an oozing gastric ulcer. The patient's Hb was stable throughout her hospital course. She was seen by Surgery who ultimately felt she should be followed up as an out patient. She was found to have an elevated RF, but a neg CCP. It was felt that she should follow up with her primary care as an out patient. She also had mild electrolyte abnormalities during her stay, which were repleted. The patient is being discharged home with instructions to follow up with her primary care physician, to take her medications as directed, and to avoid aspirin-containing products. The patient verbalized understanding and agreement. Minutes to complete discharge: 45 Discharge Summary Reason For Visit: CHEST PAIN Current Active Problems Abdominal pain (Acute) Chest pain (Acute) Hyperkalemia (Acute) Hypertensive cardiomegaly with heart failure (Chronic) Perforated gastric ulcer (Chronic) - Instructions Diet, Activity, Other Instructions: You were admitted to the hospital for 2 main issues: your heart was not pumping properly, and you had an ulcer in your stomach that was bleeding. You were seen by a leather coater, a bulk cooler installer, and a surgeon apart from your internal medicine team. It is very important that you follow up with your doctor as an out patient and that you take your prescribed medications as directed. Please avoid aspirin and aspirin-containing products. Return to the Emergency Department if your symptoms worsen or if you develop any new symptoms. Referrals: Malick Robin MD [Staff Physician] - 1 Week Gabriel Muñiz MD [Staff Physician] - 1 Week Disposition: HOME - Home Medications Comprehensive Discharge Medication List: Ambulatory Orders Carvedilol [Coreg -] 6.25 mg PO BID #40 tablet 05/28/17 Docusate Sodium [Colace -] 100 mg PO DAILY #20 cap 05/28/17 Furosemide [Lasix -] 20 mg PO DAILY #20 tablet 05/28/17 Spironolactone [Aldactone -] 25 mg PO DAILY #20 tablet 05/28/17 Valsartan [Diovan] 160 mg PO DAILY #20 tablet 05/28/17 Problem List - Problems (1) Chest pain Code(s): R07.9 - CHEST PAIN, UNSPECIFIED Qualifiers: Chest pain type: precordial pain Qualified Code(s): R07.2 - Precordial pain (2) Abdominal pain Code(s): R10.9 - UNSPECIFIED ABDOMINAL PAIN Qualifiers: Abdominal location: lower abdomen, unspecified Qualified Code(s): R10.30 - Lower abdominal pain, unspecified (3) Acute diastolic congestive heart failure Code(s): I50.31 - ACUTE DIASTOLIC (CONGESTIVE) HEART FAILURE (4) Edema of lower extremity Code(s): R60.0 - LOCALIZED EDEMA (5) Anemia Code(s): D64.9 - ANEMIA, UNSPECIFIED Qualifiers: Anemia type: iron deficiency Iron deficiency anemia type: chronic blood loss Qualified Code(s): D50.0 - Iron deficiency anemia secondary to blood loss (chronic) (6) Severe mitral regurgitation Code(s): I34.0 - NONRHEUMATIC MITRAL (VALVE) INSUFFICIENCY (7) Severe tricuspid regurgitation Code(s): I07.1 - RHEUMATIC TRICUSPID INSUFFICIENCY (8) Systemic involvement of connective tissue Code(s): M35.9 - SYSTEMIC INVOLVEMENT OF CONNECTIVE TISSUE, UNSPECIFIED This patient is new to me today: No Emergency Visit: No Critical Care patient: No - Discharge Referral Referred to [facility] No
--- NOTE | 2017-05-28 18:58 | PN ---
Teaching Attending Note Name of Resident: Taras Mata ATTENDING PHYSICIAN STATEMENT I saw and evaluated the patient. I reviewed the resident's note and discussed the case with the resident. I agree with the resident's findings and plan as documented. SUBJECTIVE: Comfortable, no further bleed. OBJECTIVE: Vital Signs Temperature 98.4 F 05/28/17 10:00 Pulse Rate 105 H 05/28/17 10:00 Respiratory Rate 20 05/28/17 10:00 Blood Pressure 115/68 05/28/17 10:00 O2 Sat by Pulse Oximetry (%) 99 05/28/17 09:00 CBCD WBC 6.7 K/mm3 (4.0-10.0) 05/28/17 05:40 RBC 3.80 M/mm3 (3.60-5.2) 05/28/17 05:40 Hgb 10.8 GM/dL (10.7-15.3) 05/28/17 05:40 Hct 32.7 % (32.4-45.2) 05/28/17 05:40 MCV 86.3 fl (80-96) 05/28/17 05:40 MCHC 32.9 g/dl (32.0-36.0) 05/28/17 05:40 RDW 25.2 % (11.6-15.6) H 05/28/17 05:40 Plt Count 445 K/MM3 (134-434) H 05/28/17 05:40 MPV 8.1 fl (7.5-11.1) 05/28/17 05:40 CMP Sodium 136 mmol/L (136-145) 05/28/17 05:40 Potassium 5.2 mmol/L (3.5-5.1) H 05/28/17 05:40 Chloride 101 mmol/L (98-107) 05/28/17 05:40 Carbon Dioxide 30 mmol/L (21-32) 05/28/17 05:40 Anion Gap 5 (8-16) L 05/28/17 05:40 BUN 17 mg/dL (7-18) 05/28/17 05:40 Creatinine 0.5 mg/dL (0.55-1.02) L 05/28/17 05:40 Creat Clearance w eGFR > 60 (>60) 05/27/17 05:45 Random Glucose 72 mg/dL (74-106) L 05/28/17 05:40 Calcium 10.2 mg/dL (8.5-10.1) H 05/28/17 05:40 Total Bilirubin 0.4 mg/dL (0.2-1.0) D 05/27/17 05:45 AST 14 U/L (15-37) L 05/27/17 05:45 ALT 16 U/L (12-78) 05/27/17 05:45 Alkaline Phosphatase 165 U/L (45-117) H D 05/27/17 05:45 Total Protein 7.5 g/dl (6.4-8.2) 05/27/17 05:45 Albumin 3.1 g/dl (3.4-5.0) L 05/27/17 05:45 CARDIAC ENZYMES Creatine Kinase 43 IU/L (26-192) 05/22/17 00:53 Troponin I 0.03 ng/ml (0.00-0.05) 05/22/17 00:53 Home Medications Medication Instructions Recorded Carvedilol [Coreg -] 6.25 mg PO BID #40 tablet 05/28/17 Docusate Sodium [Colace -] 100 mg PO DAILY #20 cap 05/28/17 Furosemide [Lasix -] 20 mg PO DAILY #20 tablet 05/28/17 Spironolactone [Aldactone -] 25 mg PO DAILY #20 tablet 05/28/17 Valsartan [Diovan] 160 mg PO DAILY #20 tablet 05/28/17 Pe: per resident's note Echocardiography dated 05/14/2017 revealed normal LV size and function with severe MR and TR with moderate degree of pulmonary HTN, no MVP or flail leaflet so etiology of valvular pathology is unclear. 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 # s/p Bleeding ;Patient is s/p EGD with findings Persistent pyloric channel ulcer at site of prior surgery as per 's findings possible due to taking ryann seltzer plus for post-op abdominal pain/ASA . s/p Cautery applied to oozing sites by , on PPI , clear liquid diet , will consult to re-evaluate, since patient is s/p perforated gastric ulcer post Paulie patch repair 01/2017 by . As per , no active bleed at this time. # Normocytic anemia s/p EGD on Protonix for now # Acute Diastolic LV heart failure with severe MR and TR ; Echo as above. on po lasix now , Valsartan , coreg and aldactone will continue. Will monitor Is & Os. # Atypical Chest pain ND is ruled out ( 3 sets of Troponin Negative) , chest pain resolved , CTA neg , neg trop . no further w/u # Hx of HTN continue meds. Patient is seen By , no further treatment at this time, to follow up with the surgeon and Follow with GI
== END 2017-05-28 15:50 | disposition home or self-care (01) | DRG 194 ==
LOC: JER 09:21 → JERBED 13:09 → OBSVTOIN 15:50 → J4S 18:05
PROVIDERS: ADMIT Internal Medicine; ATTEND Internal Medicine
PROC: 0W3P8ZZ Control Bleeding in Gastrointestinal Tract, Via Natural or Artificial Opening Endoscopic (ICD-10-PCS; 2017-05-24)
PROC: 0DB68ZX Excision of Stomach, Via Natural or Artificial Opening Endoscopic, Diagnostic (ICD-10-PCS; principal; 2017-05-24 08:00)
DX: I11.0 Hypertensive heart disease with heart failure (principal); K25.4 Chronic or unspecified gastric ulcer with hemorrhage; E83.39 Other disorders of phosphorus metabolism; E83.42 Hypomagnesemia; I07.1 Rheumatic tricuspid insufficiency; I27.2 Other secondary pulmonary hypertension; I42.9 Cardiomyopathy, unspecified; I50.33 Acute on chronic diastolic (congestive) heart failure; D50.9 Iron deficiency anemia, unspecified; N83.209 Unspecified ovarian cyst, unspecified side; I34.0 Nonrheumatic mitral (valve) insufficiency; G43.909 Migraine, unspecified, not intractable, without status migrainosus; F17.210 Nicotine dependence, cigarettes, uncomplicated; K59.00 Constipation, unspecified; F32.9 Major depressive disorder, single episode, unspecified; D57.3 Sickle-cell trait; R07.89 Other chest pain
CPT/HCPCS: 36415; 71010-TC; 71275-TC; 74000-TC; 80048; 80053; 80307; 81003; 82272; 82550; 82607; 82728; 82746; 83540; 83550; 83605; 83735; 83880; 84100; 84484; 84703; 85025; 85027; 85379; 85610; 86200; 86850; 86870; 86900; 86901; 86902; 87086; 88305-TC; 93005; 93010; 99284-25; G0378

== ENCOUNTER 2017-06-02 21:40 | Emergency (ER) | payer OTHER ==
[2017-06-02 21:45] VITALS: BP 148/86; PULSE 110; TEMP 98.1; BMI 17.9
--- NOTE | 2017-06-02 22:05 | PDOC ---
History of Present Illness - General Chief Complaint: Pain Stated Complaint: ABD PAIN Time Seen by Provider: 06/02/17 22:01 History Source: Patient - History of Present Illness Initial Comments: 06/02/17 22:39 CC: "You didn't fix my chest pain" Patient is a 31 y.o. female with a PMH of chronic systolic heart failure ( likely 2/2 to MR/TR), Iron Deficiency Anema, HTN as well as recent admission (-05/22/17) who presents today c/o of chest pain ("stabbing" 08/28 with radiation to her stomach) that has been present since her recent evaluation at our facility. Patient states that her chest pain has been ongoing for "years" and she requires surgery and "strong medications" to relieve her pain. ROS is positive for headache, blurry vision, sore throat, shortness of breath, constipation, dysuria, and UE/LE tingling. Past History - Past Medical History Allergies/Adverse Reactions: Allergies Allergy/AdvReac Type Severity Reaction Status Date / Time No Known Drug Allergies Allergy Verified 06/02/17 21:45 Home Medications: Ambulatory Orders Carvedilol [Coreg -] 6.25 mg PO BID #40 tablet 05/28/17 Docusate Sodium [Colace -] 100 mg PO DAILY #20 cap 05/28/17 Furosemide [Lasix -] 20 mg PO DAILY #20 tablet 05/28/17 Spironolactone [Aldactone -] 25 mg PO DAILY #20 tablet 05/28/17 Valsartan [Diovan] 160 mg PO DAILY #20 tablet 05/28/17 Anemia: Yes (BLOOD TRANSFUSIONS) Asthma: No Cancer: No Cardiac Disorders: Yes (leaking valve) CVA: No COPD: No CHF: No Dementia: No Diabetes: No GI Disorders: Yes (ABDOMINAL BLOATING/PAIN/WT LOSS SINCE BLDING ULCER) Disorders: No HTN: No Hypercholesterolemia: No Liver Disease: No Psychiatric Problems: Yes (DEPRESSION) Seizures: No Thyroid Disease: No - Surgical History Abdominal Surgery: Yes Appendectomy: No Cardiac Surgery: No Cholecystectomy: No Lung Surgery: No Neurologic Surgery: No Orthopedic Surgery: No - Family Disease History Family Disease History: Heart Disease: Grandparents - Reproductive History Cervical CA: No Dysfunctional Uterine Bleeding: No Ectopic : No Endometrial CA: No Polycystic Ovaries: No Tubal Ligation: No - Immunization History Immunization Up to Date: Yes - Psycho/Social/Smoking Cessation Hx Anxiety: No Suicidal Ideation: No Smoking History: Current every day smoker Have you smoked in the past 12 months: Yes Number of Cigarettes Smoked Daily: 10 Cigars Per Day: 0 Information on smoking cessation initiated: No 'Breaking Loose' booklet given: 05/21/17 Hx Alcohol Use: No Drug/Substance Use Hx: No Substance Use Type: None Hx Substance Use Treatment: No Review of Systems - Review of Systems Constitutional: Yes: Malaise HEENTM: Yes: Blurred Vision, Throat Pain Respiratory: Yes: Shortness of Breath, Other (No cough, wheezing, hemoptysis) Cardiac (ROS): Yes: Chest Pain, Other (No edema, palpitations, irregular heart rate) ABD/GI: Yes: Constipated, Other (No diarrhea, vomiting, nausea, bloody stools or tarry stools) : Yes: Burning, Dysuria, Other Musculoskeletal: Yes: Muscle Pain, Muscle Weakness Psychiatric: Yes: Anxiety, Depression All Other Systems: Reviewed and Negative *Physical Exam - Vital Signs Last Vital Signs Temp Pulse Resp BP Pulse Ox 98.1 F 110 H 20 148/86 99 06/02/17 21:41 06/02/17 21:41 06/02/17 21:41 06/02/17 21:41 06/02/17 21:41 - Physical Exam General Appearance: Yes: Appropriately Dressed, Thin HEENT: positive: EOMI, ALICIA Neck: positive: Trachea midline, Supple Respiratory/Chest: positive: Lungs Clear, Normal Breath Sounds Cardiovascular: positive: Regular Rhythm, Regular Rate, S1, S2, Systolic Murmur , Other (Grade 2 Systolic Murmur) Gastrointestinal/Abdominal: positive: Normal Bowel Sounds, Flat, Soft Neurologic: positive: hospital medicine director II-XII NML intact, Fully Oriented, Alert Medical Decision Making - Medical Decision Making 06/02/17 23:00 Patient was examined however before complete examination/evaluation could be completed, patient eloped. *DC/Admit/Observation/Transfer Diagnosis at time of Disposition: Chest pain in adult Chest pain Qualifiers: Chest pain type: unspecified Qualified Code(s): R07.9 - Chest pain, unspecified - Discharge Dispostion Disposition: ELOPED Condition at time of disposition: Good - Referrals Referrals: Berny Bella MD [Primary Care Provider] -
--- NOTE | 2017-06-02 22:36 | PDOC ---
Attending Attestation - Resident Resident Name: Reny Vogelica - ED Attending Attestation I have performed the following: The case was reviewed & discussed with the resident - HPI HPI: 06/02/17 22:34 See the resident's HPI as documented in the electronic medical record. - Physicial Exam PE: 06/02/17 22:35 see resident's physical examination - Medical Decision Making 06/02/17 22:35 The patient walked out of the emergency department during MSC and without informing staff therefore I did not see the patient or examine the patient.
== END 2017-06-02 23:02 | disposition left against medical advice (07) ==
LOC: JER 21:40
DX: R07.9 Chest pain, unspecified (principal); I50.22 Chronic systolic (congestive) heart failure; I10 Essential (primary) hypertension; D50.9 Iron deficiency anemia, unspecified
CPT/HCPCS: 99282-25

== ENCOUNTER 2017-06-03 19:29 | Observation (INO) | payer OTHER ==
[2017-06-03 19:47] VITALS: BMI 17.4
--- NOTE | 2017-06-03 19:49 | PDOC ---
History of Present Illness - General Chief Complaint: Pain Stated Complaint: CHEST PAIN Time Seen by Provider: 06/03/17 19:49 - History of Present Illness Initial Comments: 06/04/17 02: 06/04/17 03:02 Patient is a 31 y.o. female with a PMH of chronic systolic heart failure ( likely 2/2 to documented MR/TR), Iron Deficiency Anema, HTN as well as recent admission (05/21/17-05/22/17) presenting with chest pain. She describes the chest pain as a left sided chest pressure that radiates to her right chest and abdomen co-presenting with SOB, diaphoresis, and nausea. This pain has been going on for a few months and typically resolves with position change and occasional aspirin use, however, she has stopped using aspirin because of a peptic ulcer and the pain today has not resolved on its own. Typically the pain resolves after 5-10 minutes. The pain is worse with exertion. Her PCP is Dr. Portillo. Past History - Past Medical History Allergies/Adverse Reactions: Allergies Allergy/AdvReac Type Severity Reaction Status Date / Time No Known Drug Allergies Allergy Verified 06/03/17 19:43 Home Medications: Ambulatory Orders Carvedilol [Coreg -] 6.25 mg PO BID #40 tablet 05/28/17 Docusate Sodium [Colace -] 100 mg PO DAILY #20 cap 05/28/17 Furosemide [Lasix -] 20 mg PO DAILY #20 tablet 05/28/17 Spironolactone [Aldactone -] 25 mg PO DAILY #20 tablet 05/28/17 Valsartan [Diovan] 160 mg PO DAILY #20 tablet 05/28/17 Anemia: Yes (BLOOD TRANSFUSIONS) Asthma: No Cancer: No Cardiac Disorders: Yes (leaking valve) CVA: No COPD: No CHF: No Dementia: No Diabetes: No GI Disorders: Yes (ABDOMINAL BLOATING/PAIN/WT LOSS SINCE BLDING ULCER) Disorders: No HTN: Yes Hypercholesterolemia: No Liver Disease: No Psychiatric Problems: Yes (DEPRESSION) Seizures: No Thyroid Disease: No Other medical history: Migraines - Surgical History Abdominal Surgery: Yes Appendectomy: No Cardiac Surgery: No Cholecystectomy: No Lung Surgery: No Neurologic Surgery: No Orthopedic Surgery: No - Family Disease History Family Disease History: Heart Disease: Grandparents - Reproductive History Cervical CA: No Dysfunctional Uterine Bleeding: No Ectopic : No Endometrial CA: No Polycystic Ovaries: No Tubal Ligation: No - Immunization History Immunization Up to Date: Yes - Psycho/Social/Smoking Cessation Hx Anxiety: No Suicidal Ideation: No Smoking History: Current every day smoker Have you smoked in the past 12 months: Yes Number of Cigarettes Smoked Daily: 6 Cigars Per Day: 0 Information on smoking cessation initiated: No 'Breaking Loose' booklet given: 05/21/17 Hx Alcohol Use: No Drug/Substance Use Hx: No Substance Use Type: None Hx Substance Use Treatment: No Review of Systems - Review of Systems Constitutional: Yes: Diaphoresis. No: Chills, Fever, Loss of Appetite, Night Sweats HEENTM: No: Blurred Vision, Recent change in vision Respiratory: Yes: Shortness of Breath, SOB with Exertion. No: Cough, Orthopnea , Wheezing, Productive cough Cardiac (ROS): Yes: Chest Pain, Palpitations. No: Edema, Irregular Heart Rate, Chest Tightness ABD/GI: Yes: Nausea. No: Abdominal Distended, Constipated, Diarrhea, Poor Appetite : No: Burning, Dysuria, Frequency, Hematuria Musculoskeletal: No: Joint Pain, Joint Swelling, Muscle Pain, Muscle Weakness Integumentary: No: Dryness, Erythema, Flushing, Lesions Neurological: No: Headache, Numbness, Paresthesia *Physical Exam - Vital Signs Last Vital Signs Temp Pulse Resp BP Pulse Ox 98.2 F 116 H 20 116/64 100 06/03/17 19:43 06/03/17 19:43 06/03/17 19:43 06/03/17 19:43 06/03/17 19:43 - Physical Exam General Appearance: Yes: Nourished, Appropriately Dressed. No: Apparent Distress HEENT: positive: EOMI, ALICIA, Normal ENT Inspection, Normal Voice Neck: positive: Trachea midline, Normal Thyroid, Supple. negative: Tender Respiratory/Chest: positive: Lungs Clear, Normal Breath Sounds. negative: Chest Tender Cardiovascular: positive: Regular Rhythm, Regular Rate, S1, S2. negative: Edema , JVD, Murmur Gastrointestinal/Abdominal: positive: Normal Bowel Sounds, Flat, Soft. negative : Tender, Organomegaly Musculoskeletal: positive: Normal Inspection Extremity: positive: Normal Capillary Refill, Normal Range of Motion Integumentary: positive: Normal Color, Dry, Warm Neurologic: positive: Fully Oriented, Alert Heart Score/ECG Review - History History: Highly suspicious - Electrocardiogram EKG: Non specific repolarization disturbance - Age Age: </= 45 - Risk Factors Risk Factors Heart Score: Yes Hx Hypertension, Yes Positive family hx of cardiac disease Based on the list above the patient has:: 1-2 risk factors - Troponin Troponin: </= normal limit - Score Heart Score - Total: 4 - ECG Intrepretation Rhythm: Regular Rhythm - [place]: Normal - P and MO Atrial Enlargement: Right - ECG Impressions Comment:: 06/04/17 03:33 Peaked T waves with inverted T waves in V1 compared to previous EKG. Otherwise Sinus tach with poor R wave progression. ED Treatment Course - LABORATORY CBC & Chemistry Diagram: 06/03/17 21:15 06/03/17 21:15 Medical Decision Making - Medical Decision Making 31 year old female with history of valvular dysfunction presenting with acute worsening of an intermittent chest pain that she has had over the past few months. Given concomitant diaphoresis, nausea, and SOB this is concerning for ACS particularly in the setting of abnormal cardiac history at a young age. She is also tachycardic but with low risk for PE. Will get CBC, BMP, Troponin, EKG, and D-Dimer. 06/04/17 02:00 Labs mostly normal except for D-Dimer elevated to 556. Will get CTA. 06/04/17 03:00 Patient admitted for troponin rule out with CTA negative. Heart score 4 *DC/Admit/Observation/Transfer Diagnosis at time of Disposition: Chest pain at rest Diagnosis at time of Disposition: (Ruled Out): Chest pain as manifestation of blood transfusion reaction - Discharge Dispostion Condition at time of disposition: Stable Admit: Yes - Attestations Physician Attestion: 06/04/17 03:42 I, Dr. Jesika Aceves, attest that this document has been prepared under my direction and personally reviewed by me in its entirety. I further attest, that it accurately reflects all work, treatment, procedures and medical decision -making performed by me.
[2017-06-03 21:26] LABS: BASOPHIL 0.3 % (0-2.0); MCH 27.8 pg (25.7-33.7); MCHC 32.2 g/dl (32.0-36.0); MEAN CELL VOLUME 86.1 fl (80-96); MEAN PLT VOLUME 7.4 fl (7.5-11.1); NEUTROPHILS 75.9 % (42.8-82.8); PLATELET COUNT 639 K/MM3 (134-434); RDW 24.7 % (11.6-15.6); WHITE BLOOD COUNT 11.6 K/mm3 (4.0-10.0)
[2017-06-03 21:34] LABS: URINE APPEARANCE CLEAR; URINE BILIRUBIN NEGATIVE (NEGATIVE); URINE BLOOD NEGATIVE (NEGATIVE); URINE COLOR YELLOW; URINE GLUCOSE (UA) NEGATIVE (NEGATIVE); URINE KETONE TRACE (NEGATIVE); URINE LEUK ESTERASE NEGATIVE (NEGATIVE); URINE NITRITE NEGATIVE (NEGATIVE); URINE UROBILINOGEN NEGATIVE mg/dL (0.2-1.0)
[2017-06-03] MEDS ORDERED: ASPIRIN 325 MG TABLET PO ONE (21:38)
[2017-06-03 21:39] LABS: URINE PROTEIN 1+ (NEGATIVE)
[2017-06-03 21:40] LABS: GRANULAR CASTS 5 /lpf; URINE HYALINE CAST 22 /lpf; URINE MUCUS RARE; URINE WBC 1 /hpf (3-5)
[2017-06-03] MEDS ORDERED: PANTOPRAZOLE 40 MG TABLET (FP) PO ONE (21:40)
[2017-06-03] MEDS ORDERED: ASPIRIN 81 MG CHEWABLE TABLETS PO ONE (21:45)
[2017-06-03 21:49] LABS: INR 1.2 (0.82-1.09); PROTHROMBIN TIME (PATIENT) 13.3 SEC (9.98-11.88)
[2017-06-03 21:52] LABS: ACTIVATED PTT 29.1 SECONDS (26.9-34.4); ANISOCYTOSIS 1+; HYPOCHROMIA 1+; PLATELET ESTIMATE MOD INCREASED (NORMAL)
[2017-06-03 21:55] LABS: ALBUMIN 4.2 g/dl (3.4-5.0); ANION GAP 8 (8-16); BILIRUBIN,TOTAL 0.4 mg/dL (0.2-1.0); CALCIUM 11.5 mg/dL (8.5-10.1); CO2 23 mmol/L (21-32); CREATININE 0.6 mg/dL (0.55-1.02); GLUCOSE,RANDOM 99 mg/dL (74-106); SGOT/AST 19 U/L (15-37); SGPT/ALT 19 U/L (12-78); TOT PROT 9.1 g/dl (6.4-8.2)
--- NOTE | 2017-06-03 21:57 | PDOC ---
Attending Attestation - Resident Resident Name: Jesika Aceves - ED Attending Attestation I have performed the following: I have examined & evaluated the patient, The case was reviewed & discussed with the resident, I agree w/resident's findings & plan, Exceptions are as noted - HPI HPI: 06/03/17 21:56 31-year-old female patient with history of chronic systolic heart failure, mitral regurgitation and tricuspid regurgitation, history of hypertension, peptic ulcer disease, indicating pseudoaneurysm and gastric duodenal artery status post embolization, migraines, iron deficiency anemia presents with intermittent chest pains now worsened. She is complaining about chest tightness with associated shortness of breath and diaphoresis. She has some chest pain on exertion. Patient was here yesterday but walked out. Came into the ED for further evaluation. - Physicial Exam PE: 06/03/17 21:56 GENERAL: Awake, alert, and fully oriented, in no acute distress. HEAD: No signs of trauma EYES: PERRLA, EOMI, sclera anicteric, conjunctiva clear ENT: Auricles normal inspection, hearing grossly normal, nares patent, oropharynx clear without exudates. NECK: Normal ROM, supple, no lymphadenopathy, JVD, or masses LUNGS: Breath sounds equal, clear to auscultation bilaterally. No wheezes, and no crackles HEART: Regular rate and rhythm, normal S1 and S2, no murmurs, rubs or gallops ABDOMEN: Soft, nontender, normoactive bowel sounds. No guarding, no rebound. No masses EXTREMITIES: Normal range of motion, no edema. No clubbing or cyanosis. No cords, erythema, or tenderness NEUROLOGICAL: Cranial nerves II through XII grossly intact. Normal speech, normal gait SKIN: Warm, Dry, normal turgor, no rashes or lesions noted. - Medical Decision Making 06/03/17 21:57 Patient's findings are concerning for acute coronary syndrome or VA. However, given the elevated tachycardia, agree with the resident's plan to do a rule out VA and PE workup. Patient should receive aspirin and the patient should be admitted to the hospital for further evaluation. Heart Score/ECG Review - History History: Moderately suspicious - Electrocardiogram EKG: Non specific repolarization disturbance - Age Age: </= 45 - Risk Factors Based on the list above the patient has:: >/=3 risk factors or Hx atherosclerotic disease - Troponin Troponin: </= normal limit - Score Heart Score - Total: 4 #1 ECG reviewed & interpreted by me at: 19:15 06/03/17 21:56 NSR atrial enlargement, no std/иван, TWI V2, peaked T waves precordial leads, QTC 463 msec
[2017-06-03 21:58] LABS: ALK PHOS 139 U/L (45-117); TROPONIN I < 0.02 ng/ml (0.00-0.05)
[2017-06-03] MEDS ORDERED: ASPIRIN 81 MG CHEWABLE TABLETS ONE (22:05)
[2017-06-03] MEDS ORDERED: PANTOPRAZOLE 40 MG TABLET (FP) ONE (22:06)
[2017-06-04 02:08] VITALS: TEMP 98.7
--- NOTE | 2017-06-04 02:18 | PN ---
Teaching Attending Note Name of Resident: Gloria Rosario ATTENDING PHYSICIAN STATEMENT I saw and evaluated the patient. I reviewed the resident's note and discussed the case with the resident. I agree with the resident's findings and plan as documented. 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 Pt. states she had chest pain, earlier today, which had resolved. States she currently has abdominal pain, which is mainly located on her right side. Pain she states is similar to her prior admits. States her last BM was earlier today. Denies any black or bloody stools. OBJECTIVE: Physical: VS: Vital Signs Period Temp Pulse Resp BP Sys/Suárez Pulse Ox Last 24 Hr 98.2 F-98.7 F 106-116 16-20 115-120/64-80 99-100 GEN: NAD, Resting in bed HEENT: NCAT, PERRL CARD: RRR S1, S2 II/ RIVERA RESP: CTAB ABD: BSX4, NTD to palpation EXT: - C/C/E CBCD WBC 11.6 K/mm3 (4.0-10.0) H D 06/03/17 21:15 RBC 4.02 M/mm3 (3.60-5.2) 06/03/17 21:15 Hgb 11.2 GM/dL (10.7-15.3) 06/03/17 21:15 Hct 34.6 % (32.4-45.2) 06/03/17 21:15 MCV 86.1 fl (80-96) 06/03/17 21:15 MCHC 32.2 g/dl (32.0-36.0) 06/03/17 21:15 RDW 24.7 % (11.6-15.6) H 06/03/17 21:15 Plt Count 639 K/MM3 (134-434) H D 06/03/17 21:15 MPV 7.4 fl (7.5-11.1) L 06/03/17 21:15 CMP Sodium 132 mmol/L (136-145) L 06/03/17 21:15 Potassium 4.6 mmol/L (3.5-5.1) 06/03/17 21:15 Chloride 101 mmol/L (98-107) 06/03/17 21:15 Carbon Dioxide 23 mmol/L (21-32) D 06/03/17 21:15 Anion Gap 8 (8-16) 06/03/17 21:15 BUN 21 mg/dL (7-18) H D 06/03/17 21:15 Creatinine 0.6 mg/dL (0.55-1.02) 06/03/17 21:15 Creat Clearance w eGFR > 60 (>60) 06/03/17 21:15 Random Glucose 99 mg/dL (74-106) D 06/03/17 21:15 Calcium 11.5 mg/dL (8.5-10.1) H 06/03/17 21:15 Total Bilirubin 0.4 mg/dL (0.2-1.0) 06/03/17 21:15 AST 19 U/L (15-37) D 06/03/17 21:15 ALT 19 U/L (12-78) 06/03/17 21:15 Alkaline Phosphatase 139 U/L (45-117) H 06/03/17 21:15 Total Protein 9.1 g/dl (6.4-8.2) H D 06/03/17 21:15 Albumin 4.2 g/dl (3.4-5.0) D 06/03/17 21:15 CARDIAC ENZYMES Creatine Kinase 32 IU/L (26-192) 06/03/17 21:15 Troponin I < 0.02 ng/ml (0.00-0.05) 06/04/17 03:34 EKG: NSR no acute ST-T changes ASSESSMENT AND PLAN: 31 yo F with pmhx of migraines, fe def anemia, 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 1.) CV- Chest Pain- Atypical/CHF - Trend trop/ekg - C/w home meds - Monitor on tele - ASA given in ED in conjunction with Protonix 2.) Abdominal pain/ hx of pyloric ulcers/ gastrodueodenal art. pseudo-aneurysm - Abd Xray - Avoid NSAIDS 3.) DVt Ppx - Low Risk- SCD Place in Obs-Tele
--- NOTE | 2017-06-04 03:27 | HP ---
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 Since discharge on the , the patient reports having no chest pain or acute events until last night. She came to the ED yesterday evening (Sat 06/02) c/o chest pain, but left before work-up was completed. She reports having chest pain this morning, which woke her up from sleep. The chest pain is intermittent , and lasts 1-2minutes. She describes the pain as squeezing and radiating to her left chest, with a 10/10 severity. She describes an episode of "chest pressure" earlier today in which she had concomitant chills, blurry vision, and diffuse abdominal pain lasting for a few minutes. She denies any ongoing vision changes, fever, palpitations, or paresthesias. She took pepto bismol at home for the abdominal pain, which did not provide relief. Her last BM was this morning, and she denies any melena or hematochezia. ER course was notable for: (1) EKG taken (2) Troponin neg (3) Received ASA 324mg chew tablets Recent Travel: none PAST MEDICAL HISTORY: #diastolic HF #HTN #severe mitral & tricuspid regurg #Gastric ulcers #Fe deficiency anemia #Constipation #Migraines PAST SURGICAL HISTORY: Paulie patch for perforated pyloric channel ulcer - January 2017 Social History: Smokin cigarettes/d Alcohol: no Drugs: no Family History: Mother- HTN Allergies: NKDA HOME MEDICATIONS: Home Medications Medication Instructions Recorded Carvedilol [Coreg -] 6.25 mg PO BID #40 tablet 05/28/17 Docusate Sodium [Colace -] 100 mg PO DAILY #20 cap 05/28/17 Furosemide [Lasix -] 20 mg PO DAILY #20 tablet 05/28/17 Spironolactone [Aldactone -] 25 mg PO DAILY #20 tablet 05/28/17 Valsartan [Diovan] 160 mg PO DAILY #20 tablet 05/28/17 REVIEW OF SYSTEMS CONSTITUTIONAL: +chills, diaphoresis Absent: fever, generalized weakness, malaise, loss of appetite, weight change HEENT: +blurry vision Absent: rhinorrhea, nasal congestion, throat pain, throat swelling, difficulty swallowing, mouth swelling, ear pain, eye pain, visual changes CARDIOVASCULAR: +chest pain Absent:syncope, palpitations, irregular heart rate, lightheadedness, peripheral edema RESPIRATORY: SOB Absent: shortness of breath, dyspnea with exertion, orthopnea, wheezing, stridor , hemoptysis GASTROINTESTINAL: +abddominal pain, nausea Absent: abdominal distension, vomiting, diarrhea, constipation, melena, hematochezia GENITOURINARY: Absent: dysuria, frequency, urgency, hesitancy, hematuria, flank pain, genital pain MUSCULOSKELETAL: Absent: myalgia, arthralgia, joint swelling, back pain, neck pain SKIN: Absent: rash, itching, pallor HEMATOLOGIC/IMMUNOLOGIC: Absent: easy bleeding, easy bruising, lymphadenopathy, frequent infections ENDOCRINE: Absent: unexplained weight gain, unexplained weight loss, heat intolerance, cold intolerance NEUROLOGIC: Absent: headache, focal weakness or paresthesias, dizziness, unsteady gait, seizure, mental status changes, bladder or bowel incontinence PHYSICAL EXAMINATION Vital Signs - 24 hr 06/03/17 06/03/17 06/04/17 19:43 20:23 02:07 Temperature 98.2 F 98.7 F Pulse Rate 116 H Pulse Rate [ 112 H 106 H Left Radial] Respiratory 20 20 16 Rate Blood Pressure 116/64 Blood Pressure 115/80 120/74 [Right Arm] O2 Sat by Pulse 100 100 99 Oximetry (%) GENERAL: Awake, alert, and fully oriented, in no acute distress. HEAD: Normal with no signs of trauma. EYES: PERRLA, EOMI, sclera anicteric, conjunctiva clear EARS, NOSE, THROAT: Oropharynx clear without exudates. Moist mucous membranes. NECK: supple, no cervical LAD. no jvd LUNGS: ctab, no wheezes, rhonchi, or crackles HEART: tachycardia, reg rhythm, normal S1 and S2. systolic murmur (2/6) ABDOMEN: Soft, non-distended, epigastric tenderness to palpations, normoactive BS, 4cm well-healed, midline scar above the umbilicus. No hepatomegaly or splenomegaly. MUSCULOSKELETAL: Normal range of motion at all joints. No bony deformities or tenderness. UPPER EXTREMITIES: 2+ pulses, warm, well-perfused. No cyanosis. No clubbing. No peripheral edema. LOWER EXTREMITIES: 2+ pulses, warm, well-perfused. No peripheral edema. NEUROLOGICAL: Grossly intact, not formally tested PSYCHIATRIC: Cooperative. Good eye contact. Appropriate mood and affect. SKIN: Warm, dry, normal turgor, no rashes or lesions noted Laboratory Results - last 24 hr 06/03/17 06/03/17 06/03/17 21:15 21:15 21:15 WBC 11.6 H D RBC 4.02 Hgb 11.2 Hct 34.6 MCV 86.1 MCH 27.8 MCHC 32.2 RDW 24.7 H Plt Count 639 H D MPV 7.4 L Neutrophils % 75.9 Lymphocytes % 16.4 Monocytes % 5.4 Eosinophils % 2.0 Basophils % 0.3 Platelet Estimate Mod increased Hypochromic-Microcytic 1+ Anisocytosis 1+ Morphology Comment Slide scanned INR PTT (Actin FS) D-Dimer 596 H Sodium 132 L Potassium 4.6 Chloride 101 Carbon Dioxide 23 D Anion Gap 8 BUN 21 H D Creatinine 0.6 Creat Clearance w eGFR > 60 Random Glucose 99 D Calcium 11.5 H Total Bilirubin 0.4 AST 19 D ALT 19 Alkaline Phosphatase 139 H Creatine Kinase 32 Troponin I < 0.02 B-Natriuretic Peptide Total Protein 9.1 H D Albumin 4.2 D Urine Color Urine Appearance Urine pH Ur Specific [place] Urine Protein Urine Glucose (UA) Urine Ketones Urine Blood Urine Nitrite Urine Bilirubin Urine Urobilinogen Ur Leukocyte Esterase Urine RBC Urine WBC Ur Epithelial Cells Hyaline Casts Granular Casts Urine Mucus Urine HCG, Qual 06/03/17 06/03/17 06/03/17 21:15 21:25 21:50 WBC RBC Hgb Hct MCV MCH MCHC RDW Plt Count MPV Neutrophils % Lymphocytes % Monocytes % Eosinophils % Basophils % Platelet Estimate Hypochromic-Microcytic Anisocytosis Morphology Comment INR 1.20 H PTT (Actin FS) 29.1 D D-Dimer Sodium Potassium Chloride Carbon Dioxide Anion Gap BUN Creatinine Creat Clearance w eGFR Random Glucose Calcium Total Bilirubin AST ALT Alkaline Phosphatase Creatine Kinase Troponin I B-Natriuretic Peptide 177.32 H Total Protein Albumin Urine Color Yellow Urine Appearance Clear Urine pH 6.0 D Ur Specific [place] 1.015 Urine Protein 1+ H Urine Glucose (UA) Negative Urine Ketones Trace H Urine Blood Negative Urine Nitrite Negative Urine Bilirubin Negative Urine Urobilinogen Negative Ur Leukocyte Esterase Negative Urine RBC None Urine WBC 1 Ur Epithelial Cells Rare Hyaline Casts 22 Granular Casts 5 Urine Mucus Rare Urine HCG, Qual Negative CXR 06/03/17: EKG: NSR, tachycardia (117 bpm), QTc 463 ms, normal axis, biatrial enlargement, no std/иван, TWI V2, peaked T waves precordial lead ASSESSMENT/PLAN: 31yo woman with PMH of HTN, diastolic HF (ECHO 05/18, EF 39.7%), severe mitral regurgitation of unclear etiology (awaiting BALBINA as OP), severe tricuspid regurgitation with moderate pulmonary HTN, migraines, Fe deficiency anemia, persistent pyloric channel ulcer s/p Paulie patch (Jan 2017) and cauterization who was presents with intermittent, left radiating chest pressure and abdominal pain, and admitted for observation on telemetry and ACS r/o. #chest pain: HEART score is +3, Low risk. (Hx moderately suspicious +1, EKG non- specific repolarization disturbance +1, Risk factors -current smoker, HTN, +1). -EKG taken -Trend troponin: 1st neg, 2nd in AM -Telemetry monitoring #abdominal pain: h/o pyloric ulcer s/p Paulie patch and cauterization -AXR -Avoid NSAIDs due to h/o of ulcers #Diastolic HF -Continue home valsartan 160mg PO daily -Continue home carvedilol 6.25mg PO daily -Continue home furosamide 20mg PO daily -Continue home spironolactone 25mg PO daily #Constipation -Continue home Colace 100mg PO Daily PRN #F/E/N -No IVF -Electrolytes wnl -Na controlled diet #PPX -DVT prophylaxis: low risk, b/l SCD's -GI prophylaxis: on Protonix 40mg PO Daily #Dispo -admit to tele for observation -FULL code d/w team Ora Shaw MD PGY1 Visit type - Emergency Visit Emergency Visit: Yes ED Registration Date: 06/04/17 Care time: The patient presented to the Emergency Department on the above date and was hospitalized for further evaluation of their emergent condition. - New Patient This patient is new to me today: Yes Date on this admission: 06/04/17 - Critical Care Critical Care patient: No
[2017-06-04] MEDS ORDERED: morphine SULFATE/Preservative Free 0.5 MG/ML (1cc Syringe) EP ONE (05:45)
[2017-06-04 06:29] LABS: TROPONIN I < 0.02 ng/ml (0.00-0.05)
[2017-06-04] MEDS ORDERED: morphine CARPU-JECT 2 MG/1 ML DISP.SYRIN IVPUSH ONE (07:02)
[2017-06-04 08:30] LABS: MCH 28.4 pg (25.7-33.7); MCHC 32.7 g/dl (32.0-36.0); MEAN CELL VOLUME 86.9 fl (80-96); MEAN PLT VOLUME 7.7 fl (7.5-11.1); PLATELET COUNT 624 K/MM3 (134-434); RDW 25.6 % (11.6-15.6); WHITE BLOOD COUNT 9.8 K/mm3 (4.0-10.0)
[2017-06-04 08:46] LABS: ANION GAP 11 (8-16); CALCIUM 10.8 mg/dL (8.5-10.1); CO2 21 mmol/L (21-32); CREATININE 0.5 mg/dL (0.55-1.02); GLUCOSE,RANDOM 94 mg/dL (74-106)
[2017-06-04] MEDS ORDERED: morphine CARPU-JECT 2 MG/1 ML DISP.SYRIN ONE (09:00)
[2017-06-04] MEDS ORDERED: HEPARIN NA (PORCINE) 5,000 UNITS/ML 1ML VIAL SQ SCH (10:00)
[2017-06-04] MEDS ORDERED: PANTOPRAZOLE 20 MG TABLET (FP) PO SCH (10:00)
[2017-06-04] MEDS ORDERED: SPIRONOLACTONE 25 MG TABLET (FP) PO SCH (10:00)
[2017-06-04] MEDS ORDERED: FUROSEMIDE 20 MG TABLET (FP) PO SCH (10:00)
[2017-06-04] MEDS ORDERED: PANTOPRAZOLE 40 MG TABLET (FP) PO SCH (10:00)
[2017-06-04] MEDS ORDERED: CARVEDILOL 6.25 MG TABLET (FP) PO SCH (10:00)
[2017-06-04] MEDS ORDERED: DOCUSATE SODIUM 100 MG CAPSULE (FP) PO SCH (10:00)
[2017-06-04] MEDS ORDERED: VALSARTAN 80 MG TABLET (UD) PO SCH (10:00)
[2017-06-04 11:27] VITALS: BP 143/102; PULSE 98
--- NOTE | 2017-06-04 12:37 | EKG ---
Test Reason : Blood Pressure : / mmHG Vent. Rate : 117 BPM Atrial Rate : 117 BPM P-R Int : 140 ms QRS Dur : 066 ms QT Int : 332 ms P-R-T Axes : 077 006 067 degrees QTc Int : 463 ms SINUS TACHYCARDIA BIATRIAL ENLARGEMENT ABNORMAL ECG WHEN COMPARED WITH ECG OF 21-MAY-2017 20:12, NO SIGNIFICANT CHANGE WAS FOUND Confirmed by CHAUNCEY KEBEDE MD ([id number]) on 06/04/2017 12:37:00 PM Referred By: Confirmed By:CHAUNCEY KEBEDE MD
--- NOTE | 2017-06-04 17:49 | PN ---
Teaching Attending Note Name of Resident: Taras Mata ATTENDING PHYSICIAN STATEMENT I saw and evaluated the patient. I reviewed the resident's note and discussed the case with the resident. I agree with the resident's findings and plan as documented. SUBJECTIVE: Patient presented to ED c/o epigastric pain, and has multiple episodes of signing out AMA. Patient states pain 10/10 and chronic. Denies palpitations, dizziness, nausea, vomiting, diarrhea or constipation. 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 Has regular monthly menstruation without excessive bleeding. Has lost 16 lbs in short time unintentionally. OBJECTIVE: Vital Signs Temperature 98.7 F 06/04/17 02:07 Pulse Rate 98 H 06/04/17 11:18 Respiratory Rate 18 06/04/17 11:18 Blood Pressure 143/102 06/04/17 11:18 O2 Sat by Pulse Oximetry (%) 100 06/04/17 11:18 GEN:A&Ox3 in mild distress, pleasant and small frame. HEENT: PERRLA, EOMI, MMM CVS: RRR, Slight regurg murmur LUNGS: CTA Abd: Soft, tender RUQ area, surgical scar midline, no mass Ext: no edema, nl ROM, 2+ pulses ASSESSMENT AND PLAN: Abdominal pain - CT show pneumobilia in intrahepatic ducts along with mettalic coils in yecenia hepatis and gastric antrum- get GI consult continue protonix for h/o gastric ulcer. No biopsy results documented, f/u with GI re possible H Pylori. Systolic CHF- Continue Coreg 6.25mg bi, lasix 20mg daily, diovan 160mg and aldactone 25mg daily Consider ovarian pathology as patient has elevated Ca-125 and positive ddimer with weight loss, Food Service Coordinator consult for papsmear. Plans d/w patient and she expressed understanding and agreement.
[2017-06-04] MEDS ORDERED: ACETAMINOPHEN 325 MG TABLET (FP) PO ONE (20:01)
[2017-06-04] MEDS ORDERED: ACETAMINOPHEN 325 MG TABLET (FP) ONE (20:06)
--- NOTE | 2017-06-04 20:07 | PN ---
Physical Exam: SUBJECTIVE: Patient seen and examined at bedside. Pt complains of abdominal pain. No other complaints at this time. Pt denies headache, cp, sob, nausea, vomiting, diarrhea, dysuria, fever. OBJECTIVE: Vital Signs Period Temp Pulse Resp BP Sys/Suárez Pulse Ox Last 24 Hr 98-114 18-20 120-143/87-102 98-100 GENERAL: The patient is awake, alert, and fully oriented, in no acute distress. HEAD: Normal with no signs of trauma. EYES: PERRL, extraocular movements intact, sclera anicteric, conjunctiva clear. No ptosis. ENT: oropharynx clear without exudates, moist mucous membranes. NECK: Trachea midline, full range of motion, supple. LUNGS: Breath sounds equal, clear to auscultation bilaterally, no wheezes, no crackles, no accessory muscle use. HEART: Regular rhythm tachycardic, normal S1, S2 without murmur, rub or gallop. ABDOMEN: Soft, nontender, nondistended, normoactive bowel sounds, no guarding, no rebound, no hepatosplenomegaly, no masses. EXTREMITIES: 2+ pulses, warm, well-perfused, no edema. NEUROLOGICAL: Cranial nerves II through XII grossly intact. Normal speech, gait not observed. PSYCH: Normal mood, normal affect. SKIN: Warm, dry, normal turgor, no rashes or lesions noted Laboratory Results - last 24 hr 06/04/17 06/04/17 06/04/17 03:34 05:40 05:40 WBC 9.8 RBC 4.10 Hgb 11.6 Hct 35.6 MCV 86.9 MCH 28.4 MCHC 32.7 RDW 25.6 H Plt Count 624 H MPV 7.7 Sodium 134 L Potassium 4.4 Chloride 102 Carbon Dioxide 21 Anion Gap 11 BUN 15 D Creatinine 0.5 L Random Glucose 94 Calcium 10.8 H Troponin I < 0.02 < 0.02 Active Medications Generic Name Dose Route Start Last Admin Trade Name Freq PRN Reason Stop Dose Admin Carvedilol 6.25 mg 06/04/17 10:00 06/04/17 10:52 Coreg - PO 6.25 mg BID EMILY Administration Docusate Sodium 100 mg 06/04/17 10:00 06/04/17 10:52 Colace - PO 100 mg DAILY EMILY Administration Furosemide 20 mg 06/04/17 10:00 06/04/17 10:52 Lasix - PO 20 mg DAILY EMILY Administration Pantoprazole Sodium 20 mg 06/04/17 10:00 06/04/17 10:52 Protonix - PO 20 mg DAILY EMILY Administration Spironolactone 25 mg 06/04/17 10:00 06/04/17 10:52 Aldactone - PO 25 mg DAILY EMILY Administration Valsartan 160 mg 06/04/17 10:00 06/04/17 10:52 Diovan - PO 160 mg DAILY EMILY Administration ASSESSMENT/PLAN: 31yo woman with PMH of HTN, diastolic HF (ECHO 05/18, EF 39.7%), severe mitral regurgitation of unclear etiology (awaiting BALBINA as OP), severe tricuspid regurgitation with moderate pulmonary HTN, migraines, Fe deficiency anemia, persistent pyloric channel ulcer s/p Paulie patch (Jan 2017) and cauterization who was presents with intermittent, left radiating chest pressure and abdominal pain, and admitted for observation on telemetry and ACS r/o. #chest pain: HEART score is +3, Low risk. (Hx moderately suspicious +1, EKG non- specific repolarization disturbance +1, Risk factors -current smoker, HTN, +1). -EKG: sinus tachycardia, biatrial enlargement -troponin neg x3 -Telemetry monitoring -Cards consult #abdominal pain: h/o pyloric ulcer s/p Paulie patch and cauterization -AXR neg for obstruction -Avoid NSAIDs due to h/o of ulcers -f/u H. pylori stool Ag test -GI consult #CA-125 pos + abdominal pain -LEAD JANITOR consult #Diastolic HF -Continue home valsartan 160mg PO daily -Continue home carvedilol 6.25mg PO daily -Continue home furosamide 20mg PO daily -Continue home spironolactone 25mg PO daily #Constipation -Continue home Colace 100mg PO Daily PRN -avoid narcotic pain meds #F/E/N -No IVF -Electrolytes wnl -Na controlled diet #PPX -DVT prophylaxis: low risk, b/l SCD's -GI prophylaxis: on Protonix 40mg PO Daily #Dispo -admit to tele for observation -FULL code Visit type - Emergency Visit Emergency Visit: Yes ED Registration Date: 06/04/17 Care time: The patient presented to the Emergency Department on the above date and was hospitalized for further evaluation of their emergent condition. - New Patient This patient is new to me today: No - Critical Care Critical Care patient: No
--- NOTE | 2017-06-05 18:09 | DS ---
Physical Exam: HOSPITAL COURSE: Date of Admission:06/04/17 Date of Discharge: 06/05/17 The patient came to the Emergency Department with complaint of abdominal pain. She has several recent admissions for similar complaints and has been worked up extensively. She has left the hospital AMA several times in the past. The patient had been seen and counselled about staying to complete her work up. Several consults were placed and workup was initiated. Before rounds this morning, the patient decided to leave the hospital AMA. The risks of leaving were explained, and the patient verbalized understanding. Minutes to complete discharge: 45 Discharge Summary Reason For Visit: CHEST PAIN Current Active Problems Abdominal pain (Acute) Hyperkalemia (Acute) Hypertensive cardiomegaly with heart failure (Chronic) Perforated gastric ulcer (Chronic) Condition: Stable - Instructions Referrals: eBrny Bella MD [Primary Care Provider] - Disposition: AGAINST MEDICAL ADVICE - Home Medications Comprehensive Discharge Medication List: Ambulatory Orders Carvedilol [Coreg -] 6.25 mg PO BID #40 tablet 05/28/17 Docusate Sodium [Colace -] 100 mg PO DAILY #20 cap 05/28/17 Furosemide [Lasix -] 20 mg PO DAILY #20 tablet 05/28/17 Spironolactone [Aldactone -] 25 mg PO DAILY #20 tablet 05/28/17 Valsartan [Diovan] 160 mg PO DAILY #20 tablet 05/28/17 This patient is new to me today: Yes Date on this admission: 06/05/17 Emergency Visit: No Critical Care patient: No - Discharge Referral Referred to [facility] No
[2017-06-09 00:06] LABS: H.PYLORI AB IGA 12.4 units (0.0-8.9); H.PYLORI AB IGG 2.8 U/mL (0.0-0.8)
== END 2017-06-04 20:58 | disposition left against medical advice (07) ==
LOC: JER 19:29 → JERBED 06-04 02:38 → UNDOADMOB 06-04 02:46
PROVIDERS: ADMIT Internal Medicine; ATTEND Internal Medicine
PROC: 3E033NZ Introduction of Analgesics, Hypnotics, Sedatives into Peripheral Vein, Percutaneous Approach (ICD-10-PCS; principal; 2017-06-04)
DX: R07.89 Other chest pain (principal); R10.9 Unspecified abdominal pain; I50.22 Chronic systolic (congestive) heart failure; I34.0 Nonrheumatic mitral (valve) insufficiency; I07.1 Rheumatic tricuspid insufficiency; D50.9 Iron deficiency anemia, unspecified; K27.5 Chronic or unspecified peptic ulcer, site unspecified, with perforation; K59.00 Constipation, unspecified; Z86.69 Personal history of other diseases of the nervous system and sense organs; E87.6 Hypokalemia; F17.210 Nicotine dependence, cigarettes, uncomplicated; F32.9 Major depressive disorder, single episode, unspecified
CPT/HCPCS: 36415; 71010-TC; 71275-TC; 74000-TC; 80048; 80053; 81003; 81015; 82550; 83880; 84484; 84703; 85025; 85027; 85379; 85610; 85730; 86677; 93005; 93010; 99285-25; G0378

== ENCOUNTER 2017-06-14 17:36 | Emergency (ER) | payer OTHER ==
[2017-06-14 18:00] VITALS: BMI 16.2
--- NOTE | 2017-06-14 20:06 | PDOC ---
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 Patient also reports some right-sided chest burning since this episode started 2 days ago. PMD: [facility] GI: Dr. Chu Past History - Past Medical History Allergies/Adverse Reactions: Allergies Allergy/AdvReac Type Severity Reaction Status Date / Time No Known Drug Allergies Allergy Verified 06/14/17 17:56 Home Medications: Ambulatory Orders Carvedilol [Coreg -] 6.25 mg PO BID #40 tablet 05/28/17 Docusate Sodium [Colace -] 100 mg PO DAILY #20 cap 05/28/17 Furosemide [Lasix -] 20 mg PO DAILY #20 tablet 05/28/17 Spironolactone [Aldactone -] 25 mg PO DAILY #20 tablet 05/28/17 Valsartan [Diovan] 160 mg PO DAILY #20 tablet 05/28/17 Famotidine [Pepcid -] 40 mg PO DAILY #7 tablet 06/15/17 Anemia: Yes (BLOOD TRANSFUSIONS) Asthma: No Cancer: No Cardiac Disorders: Yes (leaking valve) CVA: No COPD: No CHF: No Dementia: No Diabetes: No GI Disorders: Yes (ABDOMINAL BLOATING/PAIN/WT LOSS SINCE BLDING ULCER) Disorders: No HTN: Yes Hypercholesterolemia: No Liver Disease: No Psychiatric Problems: Yes (DEPRESSION) Seizures: No Thyroid Disease: No - Surgical History Abdominal Surgery: Yes Appendectomy: No Cardiac Surgery: No Cholecystectomy: No Lung Surgery: No Neurologic Surgery: No Orthopedic Surgery: No - Family Disease History Family Disease History: Heart Disease: Grandparents - Reproductive History Cervical CA: No Dysfunctional Uterine Bleeding: No Ectopic : No Endometrial CA: No Polycystic Ovaries: No Tubal Ligation: No - Immunization History Immunization Up to Date: Yes - Psycho/Social/Smoking Cessation Hx Anxiety: No Suicidal Ideation: No Smoking History: Current every day smoker Have you smoked in the past 12 months: Yes Number of Cigarettes Smoked Daily: 6 Cigars Per Day: 0 Information on smoking cessation initiated: No 'Breaking Loose' booklet given: 05/21/17 Hx Alcohol Use: No Drug/Substance Use Hx: No Substance Use Type: None Hx Substance Use Treatment: No Review of Systems - Review of Systems Able to Perform ROS?: Yes Is the patient limited Congolese proficient: No Constitutional: No: Symptoms Reported, See HPI, Chills, Diaphoresis, Fever, Loss of Appetite, Malaise, Night Sweats, Weakness, Weight Stable, Unintentional Wgt. Loss, Unexplained wgt Loss, Other Cardiac (ROS): No: Symptoms Reported, See HPI, Chest Pain, Edema, Irregular Heart Rate, Lightheadedness, Palpitations, Syncope, Chest Tightness, Other ABD/GI: Yes: Nausea, Vomiting, Abdominal cramping. No: Symptoms Reported, See HPI, Abdominal Distended, Abd. Pain w/ defecation, Blood Streaked Bowels, Constipated, Diarrhea, Difficulty Swallowing, Poor Appetite, Poor Fluid Intake, Rectal Bleeding, Indigestion, Tarry Stools, Other *Physical Exam - Vital Signs Last Vital Signs Temp Pulse Resp BP Pulse Ox 98.5 F 112 H 19 115/80 100 06/14/17 17:56 06/14/17 17:56 06/14/17 17:56 06/14/17 17:56 06/14/17 17:56 - Physical Exam General Appearance: Yes: Appropriately Dressed Respiratory/Chest: positive: Lungs Clear, Normal Breath Sounds Cardiovascular: positive: Regular Rhythm, Regular Rate, S1, S2. negative: Edema Gastrointestinal/Abdominal: positive: Normal Bowel Sounds, Tender (RLQ), Soft Extremity: positive: Other (dry lips). negative: Normal Capillary Refill Integumentary: positive: Dry Neurologic: positive: Fully Oriented, Alert ED Treatment Course - LABORATORY CBC & Chemistry Diagram: 06/14/17 20:34 06/14/17 20:34 - RADIOLOGY Chest X-Ray Result: No Infiltrates Radiograph Interpretation: 06/15/17 01:58 official read pending Medical Decision Making - Medical Decision Making 06/14/17 21:09 A: Abdominal pain; P: CBC CMP IVF Protonix maalox pepcid 06/15/17 02:05 b/p slightly elevated. and facial puffiness noted. will give lasix x1 and reevaluate. *DC/Admit/Observation/Transfer Diagnosis at time of Disposition: Abdominal pain Qualifiers: Abdominal location: generalized Qualified Code(s): R10.84 - Generalized abdominal pain - Discharge Dispostion Disposition: HOME - Prescriptions Prescriptions: Famotidine [Pepcid -] 40 mg PO DAILY #7 tablet - Referrals Referrals: Berny Bella MD [Primary Care Provider] - Gabriel Muñiz MD [Staff Physician] - - Patient Instructions Printed Discharge Instructions: DI for Abdominal Pain-Adult Additional Instructions: follow up with your GI doctor as soon as possible. take Pepcid as prescribed.
[2017-06-14] MEDS ORDERED: PANTOPRAZOLE SODIUM 40 MG in SODIUM CHLORIDE 100 ML IVPB ONE (20:16)
[2017-06-14] MEDS ORDERED: ONDANSETRON 4 MG/2 ML VIAL IVPB ONE (20:16)
[2017-06-14] MEDS ORDERED: SODIUM CHLORIDE 500 ML IV STA (20:16)
[2017-06-14] MEDS ORDERED: ONDANSETRON 4 MG/2 ML VIAL ONE (20:30)
[2017-06-14] MEDS ORDERED: PANTOPRAZOLE SODIUM 40 MG VIAL ONE (20:30)
[2017-06-14 21:15] LABS: BASOPHIL 0.9 % (0-2.0); EOSINOPHIL 3.2 % (0-4.5); MCH 27.9 pg (25.7-33.7); MCHC 32.1 g/dl (32.0-36.0); MEAN CELL VOLUME 86.9 fl (80-96); MEAN PLT VOLUME 8.1 fl (7.5-11.1); NEUTROPHILS 67.1 % (42.8-82.8); PLATELET COUNT 365 K/MM3 (134-434); RDW 23.6 % (11.6-15.6); WHITE BLOOD COUNT 9.1 K/mm3 (4.0-10.0)
[2017-06-14 21:26] LABS: INR 1.15 (0.82-1.09); PROTHROMBIN TIME (PATIENT) 12.7 SEC (9.98-11.88)
[2017-06-14 21:50] LABS: ALBUMIN 3.8 g/dl (3.4-5.0); ANION GAP 7 (8-16); BILIRUBIN,TOTAL 0.2 mg/dL (0.2-1.0); CALCIUM 9.9 mg/dL (8.5-10.1); CO2 29 mmol/L (21-32); CREATININE 0.5 mg/dL (0.55-1.02); GLUCOSE,RANDOM 104 mg/dL (74-106); SGOT/AST 12 U/L (15-37); SGPT/ALT 14 U/L (12-78); TOT PROT 8.1 g/dl (6.4-8.2)
[2017-06-14 21:51] LABS: ALK PHOS 137 U/L (45-117)
[2017-06-14 22:06] LABS: HYPOCHROMIA 1+; PLATELET COMMENT2 NO CLOTTING DETECTED; PLATELET COMMENT3 FEW LARGE PLTS; PLATELET ESTIMATE ADEQUATE (NORMAL); POIKILOCYTOSIS 2+
[2017-06-14 22:07] LABS: ANISOCYTOSIS 3+; MICROCYTOSIS 1+
[2017-06-14 23:05] LABS: TROPONIN I < 0.02 ng/ml (0.00-0.05)
[2017-06-15] MEDS ORDERED: morphine CARPU-JECT 2 MG/1 ML DISP.SYRIN IVPUSH ONE (01:24)
[2017-06-15] MEDS ORDERED: MAG HYDROX/AL HYDROX/SIMETH 30 ML UNIT-DOSE CUP PO ONE (01:24)
[2017-06-15] MEDS ORDERED: morphine CARPU-JECT 4 MG/1 ML DISP.SYRIN ONE (01:27)
[2017-06-15 01:38] VITALS: TEMP 98.1
--- NOTE | 2017-06-15 01:45 | PDOC ---
*Physical Exam - Vital Signs Last Vital Signs Temp Pulse Resp BP Pulse Ox 98.1 F 100 H 16 137/102 100 06/15/17 01:37 06/15/17 01:37 06/15/17 01:37 06/15/17 01:37 06/15/17 01:37 ED Treatment Course - LABORATORY CBC & Chemistry Diagram: 06/14/17 20:34 06/14/17 20:34 - ADDITIONAL ORDERS Additional order review: Laboratory Results 06/14/17 06/14/17 06/14/17 20:34 20:34 20:34 INR 1.15 H Sodium 138 Potassium 3.9 Chloride 102 Carbon Dioxide 29 D Anion Gap 7 L BUN 11 D Creatinine 0.5 L Creat Clearance w eGFR > 60 Random Glucose 104 Calcium 9.9 Total Bilirubin 0.2 D AST 12 L D ALT 14 D Alkaline Phosphatase 137 H Creatine Kinase Troponin I Total Protein 8.1 Albumin 3.8 Lipase 107 Serum , Qual Stool Occult Blood Blood Type O POSITIVE Antibody Screen Positive H Antibody Identification Anti-k Antigen Identification Y 06/14/17 06/14/17 06/14/17 20:25 20:16 20:16 INR Sodium Potassium Chloride Carbon Dioxide Anion Gap BUN Creatinine Creat Clearance w eGFR Random Glucose Calcium Total Bilirubin AST ALT Alkaline Phosphatase Creatine Kinase 30 Troponin I < 0.02 Total Protein Albumin Lipase Serum , Qual Negative Stool Occult Blood Negative Blood Type Antibody Screen Antibody Identification Antigen Identification 06/14/17 20:34 RBC 3.66 MCV 86.9 MCHC 32.1 RDW 23.6 H MPV 8.1 Neutrophils % 67.1 Lymphocytes % 23.4 D Monocytes % 5.4 Eosinophils % 3.2 Basophils % 0.9 - Medications Given in the ED: ED Medications Discontinued Medications Generic Name Dose Route Start Last Admin Trade Name Freq PRN Reason Stop Dose Admin Al Hydroxide/Mg Hydroxide 30 ml 06/15/17 01:24 06/15/17 01:29 Mylanta Oral Suspension - PO 06/15/17 01:25 30 ml ONCE ONE Administration Pantoprazole Sodium 40 mg/ 100 mls @ 200 mls/hr 06/14/17 20:16 06/14/17 20:23 Sodium Chloride IVPB 06/14/17 20:45 200 mls/hr ONCE ONE Administration Sodium Chloride 500 mls @ 500 mls/hr 06/14/17 20:16 06/14/17 20:23 Normal Saline - IV 06/14/17 21:15 500 mls/hr ASDIR STA Administration Morphine Sulfate 2 mg 06/15/17 01:24 06/15/17 01:29 Morphine Injection - IVPUSH 06/15/17 01:25 2 mg ONCE ONE Administration Ondansetron HCl 4 mg 06/14/17 20:16 06/14/17 20:23 Zofran Injection IVPB 06/14/17 20:17 4 mg ONCE ONE Administration Medical Decision Making - Medical Decision Making 06/15/17 01:44 agree with care from CELESTE Davies *DC/Admit/Observation/Transfer Diagnosis at time of Disposition: Abdominal pain - Referrals Referrals: Berny Bella MD [Primary Care Provider] - - Patient Instructions - Post Discharge Activity
[2017-06-15] MEDS ORDERED: FUROSEMIDE 40 MG/4 ML INJECTABLE VIAL IVPUSH ONE (02:03)
[2017-06-15] MEDS ORDERED: FUROSEMIDE 40 MG/4 ML INJECTABLE VIAL ONE (02:12)
[2017-06-15] MEDS ORDERED: MAG HYDROX/AL HYDROX/SIMETH 30 ML UNIT-DOSE CUP ONE (02:26)
[2017-06-15 04:00] VITALS: BP 119/79; PULSE 102
--- NOTE | 2017-06-15 09:20 | EKG ---
Test Reason : Blood Pressure : / mmHG Vent. Rate : 097 BPM Atrial Rate : 097 BPM P-R Int : 146 ms QRS Dur : 070 ms QT Int : 360 ms P-R-T Axes : 066 026 058 degrees QTc Int : 457 ms NORMAL SINUS RHYTHM EARLY REPOLARIZATION NORMAL ECG WHEN COMPARED WITH ECG OF 03-JUN-2017 19:38, NO SIGNIFICANT CHANGE WAS FOUND Confirmed by PIERCE GOFF MD ([id number]) on 06/15/2017 9:20:12 AM Referred By: Confirmed By:PIERCE GOFF MD
== END 2017-06-15 04:37 | disposition home or self-care (01) ==
LOC: JER 17:36
PROC: 3E033GC Introduction of Other Therapeutic Substance into Peripheral Vein, Percutaneous Approach (ICD-10-PCS; principal; 2017-06-14)
PROC: 3E033NZ Introduction of Analgesics, Hypnotics, Sedatives into Peripheral Vein, Percutaneous Approach (ICD-10-PCS; 2017-06-14)
PROC: 3E033GC Introduction of Other Therapeutic Substance into Peripheral Vein, Percutaneous Approach (ICD-10-PCS; 2017-06-14)
DX: R10.84 Generalized abdominal pain (principal); I25.10 Atherosclerotic heart disease of native coronary artery without angina pectoris; I11.0 Hypertensive heart disease with heart failure; I50.30 Unspecified diastolic (congestive) heart failure; D50.9 Iron deficiency anemia, unspecified
CPT/HCPCS: 36415; 71020-TC; 74177-TC; 80053; 81003; 82272; 82550; 83690; 84484; 84703; 85025; 85044; 85610; 86850; 86870; 86900; 86901; 86902; 93005; 93010; 99284-25

== ENCOUNTER 2018-12-08 18:19 | Observation (INO) | payer OTHER ==
--- NOTE | 2018-12-08 18:56 | PDOC ---
History of Present Illness - General Chief Complaint: Pain Stated Complaint: SEVERE ABD,ULCERS Time Seen by Provider: 12/08/18 18:56 History Source: Patient - History of Present Illness Initial Comments: 12/08/18 18:58 The patient is a 33 year old female with a PMH of migraines, depression and gastric ulcers presents to the ED c/o 1 week h/o abdominal pain. Pain is intermittent, burning, 10/10 and in her lower abdomen sometimes radiating to her chest. Associated with 3 episodes of watery stools, multiple episodes of NBNB vomiting. No fevers/chills. H/o perforated gastric ulcer s/p repair. States she was taking daily Rantidine however her prescription ran out in May and she has not taken the medication since that time. Her GI doctor, Dr. Muñiz, has since left the area and she has not been able to establish care with another GI doctor 2/2 to life stresses. NKDA Surgical: perforated ulcer Social: 1 ppd; denies other toxic habits PMD: Dr. 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 12/08/18 19:29 Past History - Past Medical History Allergies/Adverse Reactions: Allergies Allergy/AdvReac Type Severity Reaction Status Date / Time No Known Drug Allergies Allergy Verified 12/08/18 18:25 Home Medications: Ambulatory Orders NK [No Known Home Medication] 12/08/18 Anemia: Yes (BLOOD TRANSFUSIONS) Asthma: No Cancer: No Cardiac Disorders: Yes (leaking valve) CVA: No COPD: No CHF: No Dementia: No Diabetes: No GI Disorders: Yes (ABDOMINAL BLOATING/PAIN/WT LOSS SINCE BLDING ULCER) Disorders: No HTN: Yes Hypercholesterolemia: No Liver Disease: No Psychiatric Problems: Yes (DEPRESSION,anxiety) Seizures: No Thyroid Disease: No - Surgical History Abdominal Surgery: Yes Appendectomy: No Cardiac Surgery: No Cholecystectomy: No Lung Surgery: No Neurologic Surgery: No Orthopedic Surgery: No - Family Disease History Family Disease History: Heart Disease: Grandparents - Reproductive History Cervical CA: No Dysfunctional Uterine Bleeding: No Ectopic : No Endometrial CA: No Polycystic Ovaries: No Tubal Ligation: No - Immunization History Immunization Up to Date: Yes - Suicide/Smoking/Psychosocial Hx Smoking History: Current every day smoker Have you smoked in the past 12 months: Yes Number of Cigarettes Smoked Daily: 10 Cigars Per Day: 0 Information on smoking cessation initiated: No 'Breaking Loose' booklet given: 05/21/17 Hx Alcohol Use: No Drug/Substance Use Hx: No Substance Use Type: None Hx Substance Use Treatment: No Review of Systems - Review of Systems Constitutional: No: Chills, Fever HEENTM: No: Recent change in vision Respiratory: No: Cough, Shortness of Breath Cardiac (ROS): No: Chest Pain, Lightheadedness, Palpitations, Syncope ABD/GI: Yes: Diarrhea, Nausea, Vomiting, Abdominal cramping. No: Constipated : No: Burning, Dysuria *Physical Exam - Vital Signs Last Vital Signs Temp Pulse Resp BP Pulse Ox 98 F 116 H 18 147/100 97 12/08/18 18:22 12/08/18 18:22 12/08/18 18:22 12/08/18 18:22 12/08/18 18:22 - Physical Exam General Appearance: Yes: Nourished, Thin HEENT: positive: Normal Voice, Hearing Grossly Normal Neck: positive: Trachea midline, Supple Respiratory/Chest: positive: Lungs Clear, Normal Breath Sounds Cardiovascular: positive: S1, S2. negative: Edema, JVD Gastrointestinal/Abdominal: positive: Normal Bowel Sounds, Soft, Other (mild RLQ TTP; (-) stethescope TTP). negative: Guarding, Rebound Moderate Sedation - Procedure Monitoring Vital Signs: Procedure Monitoring Vital Signs Temperature 98 F 12/08/18 18:22 Pulse Rate 116 H 12/08/18 18:22 Respiratory Rate 18 12/08/18 18:22 Blood Pressure 147/100 12/08/18 18:22 O2 Sat by Pulse Oximetry (%) 97 12/08/18 18:22 ED Treatment Course - LABORATORY CBC & Chemistry Diagram: 12/08/18 20:50 12/08/18 22:46 Medical Decision Making - Medical Decision Making 12/08/18 19:12 33 year old female with abdominal pain, diarrhea, vomiting. Initially tachycardic (HR 116) Repeat VS @ bedside unremarkable. Mild RLQ TTP, w/o peritoneal signs on belly exam. Frontal diagnosis: PUD, perforated gastric ulcer , gastroenteritis, appendicitis, cholecytistis, GERD. Will obtain basic labs, urine , GI cocktail. Reassess. 12/08/18 21:05 Multiple attempts @ IV access - 20 shanel in L AC via U/S guided access 12/08/18 21:56 No leukocytosis CMP, Trop Hemolyzed 12/08/18 22:27 EKG non-ischemic as documented in EKG section of EMR - sinus tach likely 2/2 to pain 12/08/18 22:28 Patient reassessed @ bedside. Texting on phone, resting comfortably s/p Morphine. Labs pending 12/08/18 23:08 Hb 8.9 (previous Hb 10.2 in 2017) - patient refusing FOBT BUN 14 - possible slow GI bleed? 12/08/18 23:25 Continues to c/o pain, diffusely tender. Will give H2 jess, Reassess. Patient consents to FOBT 12/08/18 23:54 Troponin (-) FOBT (+) - at this time patient continues to c/o pain and given h/o perforated ulcer will admit for GI evaluation. Patient counseled on plan of care 12/08/18 23:58 Hospitalist microblogged for admission 12/09/18 00:11 Case d/w Dr. Rodgers (Resident) will admit for further evaluation. Clinical Impression: UGI 2/2 to poorly controlled PUD *DC/Admit/Observation/Transfer Diagnosis at time of Disposition: Abdominal pain - Discharge Dispostion Disposition: HOME Condition at time of disposition: Good Decision to Admit order: No - Referrals - Patient Instructions - Post Discharge Activity
[2018-12-08] MEDS ORDERED: SODIUM CHLORIDE 0.9% 500 ML INFUS.BAG IV ONE (19:10)
[2018-12-08] MEDS ORDERED: MAG HYDROX/AL HYDROX/SIMETH -MYLANTA- ORAL SUSPENSION PO ONE (19:10)
[2018-12-08] MEDS ORDERED: FAMOTIDINE 20 MG/50 ML IVPB 20 MG/50 ML MG IVPB ONE ×2 (19:10→21:05)
[2018-12-08] MEDS ORDERED: MAG HYDROX/AL HYDROX/SIMETH 30 ML UNIT-DOSE CUP ONE (21:05)
[2018-12-08 21:08] LABS: BASO % 0.4 % (0-2.0); EOS % 0.6 % (0-4.5); HEMATOCRIT 27.9 % (32.4-45.2); HEMOGLOBIN 8.9 GM/dL (10.7-15.3); LYMPH % 13.6 % (8-40); MCH 28.8 pg (25.7-33.7); MEAN PLT VOLUME 7.9 fl (7.5-11.1); MONO % 5.3 % (3.8-10.2); NEUT % 80.1 % (42.8-82.8); PLATELET COUNT 971 K/MM3 (134-434); RBC 3.11 M/mm3 (3.60-5.2); RDW 17.3 % (11.6-15.6); WHITE BLOOD COUNT 11.9 K/mm3 (4.0-10.0)
--- NOTE | 2018-12-08 21:20 | PDOC ---
Attending Attestation - HPI HPI: 12/08/18 21:48 The patient is a 33 year old female with a significant past medical history of gastric ulcers (perforation in the past), migraines, depression, and anemia who presents today complaining of 10/10 sharp abdominal pain in the bilateral lower quadrant for a week accompanied by nausea and non-bloody/non-bilious vomiting since yesterday. She also reports having 3 episodes of loose watery stools. The patient states she hasnt been able to keep any food down. The patient denies sick contact, fever, chils, SOB, cp, or any urinary complaints. - Physicial Exam PE: 12/08/18 21:51 GENERAL: Awake, alert, and fully oriented, in no acute distress HEAD: No signs of trauma EYES: PERRLA, EOMI, sclera anicteric, conjunctiva clear ENT: Auricles normal inspection, hearing grossly normal, nares patent, oropharynx clear without exudates. Moist mucosa NECK: Normal ROM, supple, no lymphadenopathy, JVD, or masses LUNGS: Breath sounds equal, clear to auscultation bilaterally. No wheezes, and no crackles HEART: Regular rate and rhythm, normal S1 and S2, no murmurs, rubs or gallops ABDOMEN: (+) Epi-gastric tenderness, RLQ tenderness, Soft, normoactive bowel sounds. No guarding, no rebound. No masses EXTREMITIES: Normal range of motion, no edema. No clubbing or cyanosis. No cords, erythema, or tenderness NEUROLOGICAL: Cranial nerves II through XII grossly intact. Normal speech, normal gait SKIN: Warm, Dry, normal turgor, no rashes - Medical Decision Making 12/08/18 22:01 Documentation prepared by Myrna Bragg, acting as medical lab technician for Micheline Araya MD. <Myrna Bragg - Last Filed: 12/08/18 22:46> - Resident Resident Name: Ewa Vogel - ED Attending Attestation I have performed the following: I have examined & evaluated the patient, The case was reviewed & discussed with the resident, I agree w/resident's findings & plan - Medical Decision Making 12/08/18 21:18 Pt is complaining of abd pain/epig pain. She has a hx of perforated gastric ulcer - hx of 2 surgeries. Now with vomiting x 1 day and epig pain. She wants pain meds. 12/08/18 22:27 Pt had bloods repeated and repeat IV that is now finctioning. She feels better with hydration and after morphine. She will be treated with pepcid and re- evaluated after results return. 12/08/18 23:08 thrombocythemia on blood test. Platelets are 900s. Hb is low. We will get a stool guaiac. 12/09/18 02:31 guaiac positive; anemia; bleeding GI ulcer and pain. Pt will be admitted for eval and GI consult. <Micheline Araya - Last Filed: 12/09/18 02:31> Heart Score/ECG Review - [place]: Normal - P and NH Delta Wave(s) Present: No WPW: No - QRS Poor R Wave Progression: No Q Wave Present: No - ST and T Early Repolarization: No Non Specific ST-T Wave changes: No - ECG Impressions Normal ECG: No Non-specific ST Elevation: No Ischemic Changes: No Tachycardia: Sinus <Micheline Araya - Last Filed: 12/09/18 02:31>
[2018-12-08] MEDS ORDERED: morphine CARPU-JECT 2 MG/1 ML DISP.SYRIN IM ONE (21:21)
[2018-12-08] MEDS ORDERED: MORPHINE SULFATE 2 MG/ML VIAL ONE (21:57)
[2018-12-08 23:25] LABS: INR 1.23 (0.83-1.09); PROTHROMBIN TIME (PATIENT) 14.6 SEC (9.7-13.0)
[2018-12-08] MEDS ORDERED: RANITIDINE HCL 150 MG/10 ML UNIT-DOSE PO ONE (23:26)
[2018-12-08 23:28] LABS: ACTIVATED PTT 30.7 SECONDS (25.2-36.5)
[2018-12-08] MEDS ORDERED: RANITIDINE HCL 150 MG TABLET (FP) ONE (23:28)
[2018-12-08 23:42] LABS: ALBUMIN 4.4 g/dl (3.4-5.0); ALK PHOS 108 U/L (45-117); ANION GAP 11 MMOL/L (8-16); BILIRUBIN,TOTAL 0.4 mg/dL (0.2-1); BLOOD UREA NITROGEN 14 mg/dL (7-18); CHLORIDE 95 mmol/L (98-107); CO2 30 mmol/L (21-32); CREATININE 0.5 mg/dL (0.55-1.3); GLUCOSE,RANDOM 80 mg/dL (74-106); SGOT/AST 9 U/L (15-37); SGPT/ALT 8 U/L (13-61); SODIUM 136 mmol/L (136-145); TOT PROT 8.6 g/dl (6.4-8.2)
--- NOTE | 2018-12-09 00:46 | PN ---
Teaching Attending Note Name of Resident: Erica Rodgers ATTENDING PHYSICIAN STATEMENT I saw and evaluated the patient. I reviewed the resident's note and discussed the case with the resident. I agree with the resident's findings and plan as documented. SUBJECTIVE: This is a 33 year old woman with a history of PUD, Paulie patch repair of perforated pyloric channel ulcer, HTN, hypertensive heart disease, severe MR, severe TR, moderate pulm HTN, diastolic heart failure, migraine headaches, depression who comes to the ED complaining of abdominal pain for the past week. She describes it as a burning pain that is located throughout her abdomen but worst in the epigastric area and sometimes radiating into her chest. It is sometimes associated with nausea and vomiting. It is worse when she eats. She has a history of a perforated pyloric channel ulcer and paulie patch repair. She had been on Zantac, but she ran out about 6 months ago. She has been using Kala-Kirby and Tylenol. She denies ibuprofen use. She continues to smoke. OBJECTIVE: Vital Signs Period Temp Pulse Resp BP Sys/Suárez Pulse Ox Last 24 Hr 98 F 116 18 147/100 97 HEART: S1S2, tachycardic, (+) 2/6 SM LUNGS: Clear ABDOMEN: Soft, (+) diffuse tenderness, non-distended, normal BS EXTREMITIES: No edema Laboratory Tests 12/08/18 12/08/18 12/08/18 20:50 20:50 20:50 WBC 11.9 H RBC 3.11 L Hgb 8.9 L Hct 27.9 L MCV 90.0 MCH 28.8 MCHC 32.0 RDW 17.3 H Plt Count 971 H D MPV 7.9 Absolute Neuts (auto) 9.6 H Neutrophils % 80.1 Lymphocytes % 13.6 D Monocytes % 5.3 Eosinophils % 0.6 D Basophils % 0.4 Nucleated RBC % 0 PT with INR Cancelled INR Cancelled PTT (Actin FS) Cancelled Sodium Cancelled Potassium Cancelled Chloride Cancelled Carbon Dioxide Cancelled Anion Gap Cancelled BUN Cancelled Creatinine Cancelled Creat Clearance w eGFR Cancelled Random Glucose Cancelled Lactic Acid Calcium Cancelled Total Bilirubin Cancelled AST Cancelled ALT Cancelled Alkaline Phosphatase Cancelled Creatine Kinase Cancelled Troponin I Cancelled Total Protein Cancelled Albumin Cancelled Stool Occult Blood Blood Type Antibody Screen 01/12/08/18 12/08/18 20:50 20:50 22:46 WBC RBC Hgb Hct MCV MCH MCHC RDW Plt Count MPV Absolute Neuts (auto) Neutrophils % Lymphocytes % Monocytes % Eosinophils % Basophils % Nucleated RBC % PT with INR INR PTT (Actin FS) Sodium 136 Potassium 4.0 Chloride 95 L Carbon Dioxide 30 Anion Gap 11 BUN 14 Creatinine 0.5 L Creat Clearance w eGFR > 60 Random Glucose 80 Lactic Acid Cancelled Calcium 10.0 Total Bilirubin 0.4 AST 9 L ALT 8 L Alkaline Phosphatase 108 Creatine Kinase 44 Troponin I < 0.02 Total Protein 8.6 H Albumin 4.4 Stool Occult Blood Blood Type Cancelled Antibody Screen Cancelled 12/08/18 12/08/18 12/08/18 22:46 22:46 22:46 WBC RBC Hgb Hct MCV MCH MCHC RDW Plt Count MPV Absolute Neuts (auto) Neutrophils % Lymphocytes % Monocytes % Eosinophils % Basophils % Nucleated RBC % PT with INR 14.60 H INR 1.23 H PTT (Actin FS) 30.7 Sodium Potassium Chloride Carbon Dioxide Anion Gap BUN Creatinine Creat Clearance w eGFR Random Glucose Lactic Acid 1.0 Calcium Total Bilirubin AST ALT Alkaline Phosphatase Creatine Kinase Troponin I Total Protein Albumin Stool Occult Blood Blood Type O POSITIVE Antibody Screen Positive 12/08/18 23:40 WBC RBC Hgb Hct MCV MCH MCHC RDW Plt Count MPV Absolute Neuts (auto) Neutrophils % Lymphocytes % Monocytes % Eosinophils % Basophils % Nucleated RBC % PT with INR INR PTT (Actin FS) Sodium Potassium Chloride Carbon Dioxide Anion Gap BUN Creatinine Creat Clearance w eGFR Random Glucose Lactic Acid Calcium Total Bilirubin AST ALT Alkaline Phosphatase Creatine Kinase Troponin I Total Protein Albumin Stool Occult Blood Positive Blood Type Antibody Screen Home Medications Medication Instructions Recorded NK [No Known Home Medication] 12/08/18 ASSESSMENT AND PLAN: This is a 33 year old woman with a history of PUD, Paulie patch repair of perforated pyloric channel ulcer, HTN, hypertensive heart disease, severe MR, severe TR, moderate pulm HTN, diastolic heart failure, migraine headaches, depression who presented to the ED with abdominal pain x 1 week. 1. Anemia, likely secondary to chronic GI blood loss from PUD - Patient is tachycardic but BP is ok - Monitor hemoglobin and transfuse as needed - Start Protonix - Avoid NSAIDs including Kala-Kirby - Smoking cessation - GI consult for EGD 2. HTN with hypertensive heart disease - Patient says she takes no meds. In 05/2017, she was on Coreg, Diovan, Lasix , Aldactone 3. Severe mitral regurgitation 4. Severe tricuspid regurgitation 5. Moderate pulm HTN 6. History of acute diastolic heart failure
[2018-12-09] MEDS ORDERED: SODIUM CHLORIDE 1,000 ML IV SCH (01:00)
--- NOTE | 2018-12-09 01:07 | HP ---
CHIEF COMPLAINT: abdominal pain x 1 week PCP: Dr. 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 States that during this time, she developed diffuse abdominal pain and a "burning sensation" worse w/eating. Initially it was a/w crampy abdominal BM's, however this soon subsided and she had 3-4 loose BM's (without blood) over the past day, as well as multiple episodes of NBNB emesis (without blood). States that she took Tylenol and multiple tabs of Kala Gardner this week to aid her burning sensation. As per pt, current episode feels similar to when she was dx with PUD in past. Denies BAILON, fever, chills, SOB, chest pain or pressure, or changes in urinary function. Used to follow with Dr. Muñiz, however will soon follow with Dr. Corado. Also endorses recent heavy menses with clotting. According to pt, she is still menstruating. ER course was notable for: (1) mylanta, morphine 2mg x 1 (2) pepcid, zantac, NS 1L (3) Recent Travel: denies PAST MEDICAL HISTORY: as above PAST SURGICAL HISTORY: as above Social History: currently not working or in school. on disability . has a 3 yr old son Smoking:used to smoke 1/2 ppd x 10 yrs. now smokes 4 cigs/day Alcohol: denies Drugs: denies Family History: mother - cardiac problems with hx stent, father- HTN, Alzheimer' s Allergies No Known Drug Allergies Allergy (Verified 12/08/18 18:25) HOME MEDICATIONS: Home Medications Medication Instructions Recorded NK [No Known Home Medication] 12/08/18 confirmed with patient - does not take any current meds ?likely non compliant. in past has been on meds for HTN, CHF (2017) see assessment/plan section REVIEW OF SYSTEMS CONSTITUTIONAL: Absent: fever, chills, diaphoresis, generalized weakness, malaise, loss of appetite, weight change HEENT: Absent: rhinorrhea, nasal congestion, throat pain, throat swelling, difficulty swallowing, mouth swelling, ear pain, eye pain, visual changes CARDIOVASCULAR: Absent: chest pain, syncope, palpitations, irregular heart rate, lightheadedness , peripheral edema RESPIRATORY: Absent: cough, shortness of breath, dyspnea with exertion, orthopnea, wheezing, stridor, hemoptysis GASTROINTESTINAL: +abdominal pain, nausea, vomiting, diarrhea Absent: constipation, melena, hematochezia GENITOURINARY: Absent: dysuria, frequency, urgency, hesitancy, hematuria, flank pain, genital pain MUSCULOSKELETAL: Absent: myalgia, arthralgia, joint swelling, back pain, neck pain SKIN: Absent: rash, itching, pallor HEMATOLOGIC/IMMUNOLOGIC: Absent: easy bleeding, easy bruising, lymphadenopathy, frequent infections ENDOCRINE: Absent: unexplained weight gain, unexplained weight loss, heat intolerance, cold intolerance NEUROLOGIC: Absent: headache, focal weakness or paresthesias, dizziness, unsteady gait, seizure, mental status changes, bladder or bowel incontinence PSYCHIATRIC: Absent: anxiety, depression, suicidal or homicidal ideation, hallucinations. PHYSICAL EXAMINATION Vital Signs - 24 hr 12/08/18 18:22 Temperature 98 F Pulse Rate 116 H Respiratory 18 Rate Blood Pressure 147/100 O2 Sat by Pulse 97 Oximetry (%) GENERAL: Resting in bed, awake, alert, and fully oriented, in no acute distress. HEAD: Normal with no signs of trauma. EYES: Pupils equal, round and reactive to light, extraocular movements intact, sclera anicteric, conjunctiva clear. EARS, NOSE, THROAT: Ears normal, nares patent, oropharynx clear without exudates. Moist mucous membranes. NECK: Normal range of motion, supple LUNGS: Breath sounds equal, clear to auscultation bilaterally. No wheezes, and no crackles. No accessory muscle use. HEART: +tachycardic rate and rhythm, normal S1 and S2 without murmur, rub or gallop. ABDOMEN: Soft, diffusely TTP - keren in RLQ , not distended, normoactive bowel sounds. psoas, obturator signs negative. RECTAL: refused my exam LOWER EXTREMITIES: 2+ pt pulses, warm, well-perfused. No calf tenderness. No peripheral edema. NEUROLOGICAL: Cranial nerves II-XII intact. 5/5 motor strength UE, LE. sensation intact PSYCHIATRIC: Cooperative. Good eye contact. 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 #Possible UGIB 2/2 PUD -given hx of extensive PUD and non-compliance - current smoker, without recent GI f/u - may be slow UGIB bleed -may need EGD . f/u b-hcg prior to testing -NPO for bowel rest -serial CBCs, transfusion threshold Hb<7 -will start protonix 40mg PO BID -GI: Dr. Sanchez on -call -avoid IVF at this time as past hx CHF - though noncompliant #diastolic CHF -noncompliant with meds as states that she is not on any currently -in 2017 pt was on valsartan, coreg, furosemide, spirinolactone #HTN- currently uncontrolled -likely exacerbated by pain -as above, likely noncompliant with meds. on valsartan and coreg in 2017 #F/E/N avoid IVF at this time as past hx CHF continue to follow lytes NPO #PPX SCD's, ambulation. expect short stay #Dispo med-surg obs as expect short stay Visit type - Emergency Visit Emergency Visit: Yes ED Registration Date: 12/09/18 Care time: The patient presented to the Emergency Department on the above date and was hospitalized for further evaluation of their emergent condition. - New Patient This patient is new to me today: Yes Date on this admission: 12/09/18 - Critical Care Critical Care patient: No
[2018-12-09] MEDS ORDERED: PANTOPRAZOLE 40 MG TABLET (FP) ONE (01:11)
[2018-12-09] MEDS: PANTOPRAZOLE 40 MG TABLET (FP) PO SCH ×3 (01:16→21:44)
[2018-12-09 06:04] LABS: HEMATOCRIT 23.2 % (32.4-45.2); HEMOGLOBIN 7.5 GM/dL (10.7-15.3); MCH 28.9 pg (25.7-33.7); MCHC 32.2 g/dl (32.0-36.0); MEAN CELL VOLUME 89.8 fl (80-96); MEAN PLT VOLUME 7.5 fl (7.5-11.1); PLATELET COUNT 810 K/MM3 (134-434); RBC 2.58 M/mm3 (3.60-5.2); RDW 17.5 % (11.6-15.6); WHITE BLOOD COUNT 11.6 K/mm3 (4.0-10.0)
[2018-12-09 06:45] LABS: ANION GAP 9 MMOL/L (8-16); BLOOD UREA NITROGEN 10 mg/dL (7-18); CALCIUM 8.7 mg/dL (8.5-10.1); CHLORIDE 102 mmol/L (98-107); CO2 26 mmol/L (21-32); CREATININE 0.4 mg/dL (0.55-1.3); GLUCOSE,RANDOM 70 mg/dL (74-106); MAGNESIUM 2.3 mg/dL (1.8-2.4); PHOSPHOROUS 3.1 mg/dL (2.5-4.9); POTASSIUM 4.1 mmol/L (3.5-5.1); SODIUM 138 mmol/L (136-145)
[2018-12-09] MEDS ORDERED: DEXTROSE 5%-LACTATED RINGERS 1,000 ML IV SCH ×3 (08:00→16:15)
--- NOTE | 2018-12-09 09:50 | PN ---
<Gatito Martínez - Last Filed: 12/09/18 13:22> Physical Exam: SUBJECTIVE: Pt placed in observation due to suspected bleeding gastric vs. duodenal ulcer. Currently pt is comfortable with resolved epigastric pain at this time. Pt reports her symptoms on admission were similar to when she had her previous bleeding gastric ulcer however the intensity and burning character were much more increased for this admission. Pt currently denies menstruation at this time, BM between yesterday and today. OBJECTIVE: Vital Signs Period Temp Pulse Resp BP Sys/Suárez Pulse Ox Last 24 Hr 98 F-98.6 F 102-116 16-18 122-150/94-100 97-100 GENERAL: NAD, awake, alert, and fully oriented, sitting in bed HEENT: NC/AT, EOMI, COLETTE, sclera anicteric, MMM, no conjunctival or mucosal pallor currently NECK: No JVD, soft LUNGS: CTA bilaterally, no wheezes, no crackles, no accessory muscle use. HEART: Tachycardic with regular rhythm, S1, S2 without murmur ABDOMEN: Soft, NT, ND, normoactive bowel sounds, no guarding, no hepatomegaly via percussion RECTAL: Refused EXTREMITIES: 2+ DP pulses, warm, well-perfused, no edema. NEUROLOGICAL: Nonfocal. Normal speech, gait not observed. Strength grossly intact in upper and lower extremities PSYCH: Normal mood, normal affect. SKIN: Warm, dry, no rashes or lesions noted Laboratory Results 12/09/18 05:50 WBC 11.6 H RBC 2.58 L Hgb 7.5 L Hct 23.2 L D MCV 89.8 MCH 28.9 MCHC 32.2 RDW 17.5 H Plt Count 810 H MPV 7.5 Absolute Neuts (auto) Neutrophils % Lymphocytes % Monocytes % Eosinophils % Basophils % Nucleated RBC % PT with INR INR PTT (Actin FS) Sodium Potassium Chloride Carbon Dioxide Anion Gap BUN Creatinine Creat Clearance w eGFR Random Glucose Lactic Acid Calcium Phosphorus Magnesium Total Bilirubin AST ALT Alkaline Phosphatase Creatine Kinase Troponin I Total Protein Albumin Beta HCG, Quant Stool Occult Blood Blood Type Antibody Screen Antibody Identification Antigen Identification 12/09/18 05:50 WBC RBC Hgb Hct MCV MCH MCHC RDW Plt Count MPV Absolute Neuts (auto) Neutrophils % Lymphocytes % Monocytes % Eosinophils % Basophils % Nucleated RBC % PT with INR INR PTT (Actin FS) Sodium 138 Potassium 4.1 Chloride 102 Carbon Dioxide 26 Anion Gap 9 BUN 10 Creatinine 0.4 L Creat Clearance w eGFR > 60 Random Glucose 70 L Lactic Acid Calcium 8.7 Phosphorus 3.1 Magnesium 2.3 Total Bilirubin AST ALT Alkaline Phosphatase Creatine Kinase Troponin I Total Protein Albumin Beta HCG, Quant Stool Occult Blood Blood Type Antibody Screen Antibody Identification Antigen Identification Active Medications Generic Name Dose Route Start Last Admin Trade Name Nguyễnq PRN Reason Stop Dose Admin Pantoprazole Sodium 40 mg 12/09/18 01:15 12/09/18 01:16 Protonix - PO 40 mg BID EMILY Administration ASSESSMENT/PLAN: Suspected bleeding gastric vs. duodenal ulcer ? HFrEF Iron deficiency anemia --CBC rpt; if Hgb below 7.0 will transfuse --GI consult pending; likely will need endoscopic evaluation and possible intervention of suspected ulceration --Protonix 40mg BID IVP to continue --Iron studies once bleeding resolved for assessment of iron supplementation --Echocardiogram for EF evaluation --Pt previously on Valsartan 100mg qD, Coreg 6.24mg BID, Lasix 20mg qD, Aldactone 25mg qD in 2017 --May need to restart medications if BP allows FEN: Fluids: will hold off until EF evaluation due to suspected systolic CHF Electrolyte abnormalities: None currently Nutrition: NPO for now PPX: DVT - SCDs for now; hold any AC with active bleed and possible intervention Dispo: Continue monitoring; GI evaluation Case discussed with Dr. Marco Antonio Martínez, - IM PGY-2 Visit type - Emergency Visit Emergency Visit: Yes ED Registration Date: 12/09/18 Care time: The patient presented to the Emergency Department on the above date and was hospitalized for further evaluation of their emergent condition. - New Patient This patient is new to me today: Yes Date on this admission: 12/09/18 - Critical Care Critical Care patient: No <Zohaib Bernard - Last Filed: 12/09/18 17:58> Physical Exam: ATTENDING NOTE Patient seen and examined by me. 33 year old female with history of PUD, Paulie patch repair of perforated pyloric channel ulcer, HTN, hypertensive heart disease, severe MR, presented with epigastric pain and FOBT positive stool H/H 7.5/23.2. GI consulted - for possible EGD in AM. Continue PPI. Monitor H/H. No nausea/vomiting/hematemesis/hematochezia. Agree with rest of resident plan as outlined above Echo pending - questionable EF/CHF in past.
[2018-12-09 10:09] LABS: URINE APPEARANCE CLOUDY; URINE BILIRUBIN NEGATIVE (<2.0 mg/dL); URINE COLOR DKYELLOW; URINE GLUCOSE (UA) NEGATIVE (NEGATIVE); URINE KETONE 1+ (NEGATIVE); URINE LEUK ESTERASE 1+ (NEGATIVE); URINE NITRITE NEGATIVE (NEGATIVE); URINE PROTEIN 2+ (NEGATIVE)
[2018-12-09 10:35] LABS: EPI CELLS FEW /HPF (FEW); URINE BACTERIA MANY /hpf (NONE SEEN); URINE HYALINE CAST 2 /lpf; URINE MUCUS RARE
[2018-12-09] MEDS ORDERED: MORPHINE SULFATE 2 MG/ML VIAL IVPUSH PRN (10:47)
[2018-12-09 11:50] LABS: HEMATOCRIT 25.5 % (32.4-45.2); HEMOGLOBIN 8.3 GM/dL (10.7-15.3); MCH 29.2 pg (25.7-33.7); MCHC 32.6 g/dl (32.0-36.0); MEAN CELL VOLUME 89.7 fl (80-96); MEAN PLT VOLUME 7.4 fl (7.5-11.1); PLATELET COUNT 917 K/MM3 (134-434); RBC 2.84 M/mm3 (3.60-5.2); RDW 17.5 % (11.6-15.6)
--- NOTE | 2018-12-09 12:07 | EKG ---
Test Reason : Blood Pressure : / mmHG Vent. Rate : 109 BPM Atrial Rate : 109 BPM P-R Int : 148 ms QRS Dur : 068 ms QT Int : 362 ms P-R-T Axes : 054 013 032 degrees QTc Int : 487 ms SINUS TACHYCARDIA POSSIBLE LEFT ATRIAL ENLARGEMENT LEFT VENTRICULAR HYPERTROPHY ABNORMAL ECG WHEN COMPARED WITH ECG OF 14-JUN-2017 18:24, T WAVE VARIATION Confirmed by CHAUNCEY KEBEDE MD ([id number]) on 12/09/2018 12:07:05 PM Referred By: Confirmed By:CHAUNCEY KEBEDE MD
[2018-12-09 15:00] VITALS: BMI 24.5
[2018-12-09] MEDS ORDERED: FLU VACCINE QUAD 60 MCG/0.5 ML (MDV 18-19) IM ONE (15:30)
[2018-12-09] MEDS: MORPHINE SULFATE 2 MG/ML VIAL IVPUSH PRN ×2 (15:32→21:42)
--- NOTE | 2018-12-09 16:07 | ECHO ---
Name: MITUL SMITH Exam:Adult Echocardiogram Study Date: 12/09/2018 02:59 PM Age: 33 yrs Reason For Study: LVEF Height: 61 in Weight: 127 lb BSA: 1.6 m2 MMode/2D Measurements & Calculations IVSd: 0.78 cm Ao root diam: 2.5 cm LVIDd: 3.7 cm LA dimension: 2.4 cm LVIDs: 2.3 cm LVPWd: 0.66 cm EDV(Teich): 57.5 ml ESV(Teich): 17.4 ml Doppler Measurements & Calculations MV E max dipak: 45.9 cm/sec Med Peak E' Dipak: 7.9 cm/sec MV A max dipak: 79.0 cm/sec Med E/e': 5.8 MV E/A: 0.58 Lat Peak E' Dipak: 15.8 cm/sec MV dec time: 0.12 sec Lat E/e': 2.9 Procedure A complete two-dimensional transthoracic echocardiogram was performed (2D, M-mode, Doppler and color flow Doppler). Left Ventricle The left ventricle is normal in size. Left ventricular systolic function is normal. Ejection Fraction = 65- 70%. No regional wall motion abnormalities noted. Right Ventricle The right ventricle is normal size. The right ventricular systolic function is normal. Atria The left atrial size is normal. Right atrial size is normal. Mitral Valve The mitral valve is normal in structure and function. There is mild mitral regurgitation. Tricuspid Valve The tricuspid valve is normal in structure and function. There is mild tricuspid regurgitation. Aortic Valve The aortic valve is normal in structure and function. No aortic regurgitation is present. Pulmonic Valve The pulmonic valve is not well visualized. Great Vessels The aortic root is normal size. Pericardium/Pleura There is no pericardial effusion. Interpretation Summary The left ventricle is normal in size. Left ventricular systolic function is normal. No regional wall motion abnormalities noted. Ejection Fraction = 65-70%. The right ventricular systolic function is normal. The left atrial size is normal. Right atrial size is normal. There is mild mitral regurgitation. There is mild tricuspid regurgitation. There is no pericardial effusion. Previous study is not available for comparison Major Monterroso MD 12/09/2018 04:06 PM
[2018-12-09] MEDS ORDERED: MAG HYDROX/AL HYDROX/SIMETH 30 ML UNIT-DOSE CUP PO ONE (17:34)
[2018-12-09] MEDS ORDERED: ONDANSETRON 4 MG/2 ML VIAL IVPB PRN (18:07)
--- NOTE | 2018-12-09 18:16 | CON.GI ---
Consult Consult Specialty:: GI - History of Present Illness History of Present Illness: 33 y/o F with history of perforated duodenal ulcer 02/02/17 was doing well with Ranitidine. She ran out of medication. Today her abdominal pain is less after receiving Pantoprazole and IV hydration. She continues to have nausea but no vomiting. Her diarrhea has resolved and wants to try solid food. She denies, melena, rectal bleeding and unexplained weight loss. - History Source History Provided By: Patient - Past Medical History Cardio/Vascular: Yes: HTN Gastrointestinal: Yes: Peptic Ulcer Disease ...LMP: 12/02/18 Psych: Yes: Depression Additional Medical History: Anemia. Depression not on meds - Alcohol/Substance Use Hx Alcohol Use: No History of Substance Use: reports: None - Smoking History Smoking history: Current every day smoker Have you smoked in the past 12 months: Yes Aproximately how many cigarettes per day: 10 - Social History Usual Living Arrangement: With Significant Other ADL: Independent History of Recent Travel: No Home Medications - Allergies Allergies/Adverse Reactions: Allergies Allergy/AdvReac Type Severity Reaction Status Date / Time No Known Drug Allergies Allergy Verified 12/08/18 18:25 - Home Medications Home Medications: Ambulatory Orders NK [No Known Home Medication] 12/08/18 Family Disease History - Family Disease History Family Disease History: Other: Mother (anemia) Review of Systems - Review of Systems Constitutional: denies: No Symptoms, Chills, Diaphoresis, Fever, Lethargy, Loss of Appetite, Malaise, Night Sweats, Unintentional Wgt. Loss, Weakness, Other Eyes: denies: No Symptoms, Blind Spots, Blurred Vision, Double Vision, Eye Pain , Floaters, Photophobia, Recent Change in Vision, Other HENT: denies: No Symptoms, Difficult Swallowing, Ear Discharge, Ear Pain, Epistaxis, Gingival Bleeding, Hearing Loss, Mouth Swelling, Nasal Congestion, Ocular Prosthesis, Throat Pain, Toothache, Ringing in Ears, Other Neck: denies: No Symptoms, Decreased ROM, Lumps, Pain on Movement, Stiffness, Swollen Glands, Tenderness, Other Cardiovascular: denies: No Symptoms, Chest Pain, Edema, Palpitations, Shortness of Breath, Other Physical Exam-GI Vital Signs: Vital Signs Temperature 98.2 F 12/09/18 17:25 Pulse Rate 109 H 12/09/18 17:25 Respiratory Rate 18 12/09/18 17:25 Blood Pressure 138/89 12/09/18 17:25 O2 Sat by Pulse Oximetry (%) 98 12/09/18 17:00 Constitutional: Yes: Well Nourished Eyes: Yes: Conjunctiva Clear HENT: Yes: Normocephalic Neck: Yes: Trachea Midline Cardiovascular: Yes: Regular Rate and Rhythm Respiratory: Yes: CTA Bilaterally ...Palpate: Yes: Soft. No: Firm/Rigid, Guarding, Hepatomegaly, Mass, Pulsatile Mass, Splenomegaly, Tenderness Labs: CBC, BMP 12/09/18 11:40 12/09/18 05:50 INR, PTT INR 1.23 (0.83-1.09) H 12/08/18 22:46 Problem List - Problems (1) Abdominal pain Assessment/Plan: r/o peptic ulcer disease R> RGD s an ouptatinet Code(s): R10.9 - UNSPECIFIED ABDOMINAL PAIN (2) Anemia Assessment/Plan: R> stool guaiac od x3 Code(s): D64.9 - ANEMIA, UNSPECIFIED
[2018-12-09] MEDS: METOCLOPRAMIDE HCL INJECTION 10 MG/2 ML VIAL IVPB SCH (18:25)
[2018-12-09] MEDS ORDERED: RANITIDINE HCL 150 MG TABLET (FP) PO SCH (22:00)
[2018-12-10] MEDS ORDERED: MAG HYDROX/AL HYDROX/SIMETH 30 ML UNIT-DOSE CUP PO ONE (00:40)
[2018-12-10] MEDS: METOCLOPRAMIDE HCL INJECTION 10 MG/2 ML VIAL IVPB SCH ×2 (01:02→09:36)
--- NOTE | 2018-12-10 07:24 | PN ---
GI Progress Note Subjective: Patient states abdominal pain has improved and is tolerating regular diet. Denies nausea, vomiting, or diarrhea. Complains of intermittent episodes of early satiety and reflux. Patient says diarrhea has subsided but is now experiencing constipation. - Objective Vital Signs: Vital Signs Temperature 98.3 F 12/10/18 05:00 Pulse Rate 99 H 12/10/18 05:00 Respiratory Rate 18 12/10/18 05:00 Blood Pressure 104/75 12/10/18 05:00 O2 Sat by Pulse Oximetry (%) 98 12/10/18 01:00 Constitutional: Well Nourished, No Distress, Calm Eyes: Yes: Conjunctiva Clear Cardiovascular: Yes: Regular Rate and Rhythm Respiratory: Yes: Regular, CTA Bilaterally Gastrointestinal Inspection: Yes: Scars ...Palpate: Yes: Soft ...Percussion: Yes: Tympanitic Neurological: Yes: Alert, Oriented Labs: CBC, BMP 12/09/18 11:40 12/09/18 05:50 INR, PTT INR 1.23 (0.83-1.09) H 12/08/18 22:46 Problem List - Problems (1) Abdominal pain Assessment/Plan: >instructed to follow up as outpatient for further GI workup and EGD Code(s): R10.9 - UNSPECIFIED ABDOMINAL PAIN (2) Anemia Assessment/Plan: >stool guaiac od x 3 Code(s): D64.9 - ANEMIA, UNSPECIFIED
[2018-12-10 08:00] LABS: HEMATOCRIT 22.8 % (32.4-45.2); HEMOGLOBIN 7.4 GM/dL (10.7-15.3); MCH 29.2 pg (25.7-33.7); MCHC 32.4 g/dl (32.0-36.0); MEAN CELL VOLUME 90.3 fl (80-96); MEAN PLT VOLUME 7.3 fl (7.5-11.1); PLATELET COUNT 797 K/MM3 (134-434); RBC 2.53 M/mm3 (3.60-5.2); RDW 17.6 % (11.6-15.6); WHITE BLOOD COUNT 6.9 K/mm3 (4.0-10.0)
[2018-12-10 08:12] LABS: ANION GAP 9 MMOL/L (8-16); BLOOD UREA NITROGEN 7 mg/dL (7-18); CALCIUM 8.9 mg/dL (8.5-10.1); CHLORIDE 103 mmol/L (98-107); CO2 25 mmol/L (21-32); CREATININE 0.4 mg/dL (0.55-1.3); GLUCOSE,RANDOM 89 mg/dL (74-106); MAGNESIUM 2.5 mg/dL (1.8-2.4); PHOSPHOROUS 3.6 mg/dL (2.5-4.9); POTASSIUM 4.2 mmol/L (3.5-5.1); SODIUM 137 mmol/L (136-145)
[2018-12-10] MEDS: PANTOPRAZOLE 40 MG TABLET (FP) PO SCH (09:36)
[2018-12-10] MEDS: FERROUS SO4 325 MG TABLET (FP) PO SCH ×3 (09:36→16:44)
[2018-12-10 12:53] LABS: HEMATOCRIT 24.1 % (32.4-45.2); HEMOGLOBIN 7.6 GM/dL (10.7-15.3); MCH 28.5 pg (25.7-33.7); MCHC 31.6 g/dl (32.0-36.0); MEAN CELL VOLUME 90.1 fl (80-96); MEAN PLT VOLUME 7.3 fl (7.5-11.1); PLATELET COUNT 836 K/MM3 (134-434); RBC 2.67 M/mm3 (3.60-5.2); RDW 17.7 % (11.6-15.6); WHITE BLOOD COUNT 8.3 K/mm3 (4.0-10.0)
[2018-12-10] MEDS ORDERED: DOCUSATE SODIUM 100 MG CAPSULE (FP) PO ONE (15:00)
[2018-12-10] MEDS ORDERED: POLYETHYLENE GLYCOL 3350 119 GM BTL PO ONE (15:00)
[2018-12-10 15:15] VITALS: BP 112/67; PULSE 110; TEMP 98.7
--- NOTE | 2018-12-10 16:03 | PN ---
Teaching Attending Note Name of Resident: Krishna Gates ATTENDING PHYSICIAN STATEMENT I saw and evaluated the patient. I reviewed the resident's note and discussed the case with the resident. I agree with the resident's findings and plan as documented. SUBJECTIVE: Patient feels mucg better. She denies abdominal pain, nausea, melena , rectal bleeding. She is tolerating diet. OBJECTIVE: Vital Signs Period Temp Pulse Resp BP Sys/Suárez Pulse Ox Last 24 Hr 98 F-98.7 F 99-110 18-18 104-155/61-89 98-98 HEART: S1S2, RRR LUNGS: Clear ABDOMEN: Soft, non-tender, non-distended, normal BS EXTREMITIES: No edema Laboratory Results - last 24 hr 12/10/18 12/10/18 12/10/18 06:30 06:30 12:06 WBC 6.9 8.3 RBC 2.53 L 2.67 L Hgb 7.4 L 7.6 L Hct 22.8 L 24.1 L MCV 90.3 90.1 MCH 29.2 28.5 MCHC 32.4 31.6 L RDW 17.6 H 17.7 H Plt Count 797 H 836 H MPV 7.3 L 7.3 L Sodium 137 Potassium 4.2 Chloride 103 Carbon Dioxide 25 Anion Gap 9 BUN 7 Creatinine 0.4 L Creat Clearance w eGFR > 60 Random Glucose 89 Calcium 8.9 Phosphorus 3.6 Magnesium 2.5 H Current Medications Generic Name Dose Route Start Last Admin Trade Name Freq PRN Reason Stop Dose Admin Ferrous Sulfate 325 mg 12/10/18 08:00 12/10/18 13:38 Feosol - PO 325 mg TIDCM EMILY Administration Metoclopramide HCl 10 mg 12/09/18 18:15 12/10/18 09:36 Reglan Injection - IVPB 10 mg Q8H-IV EMILY Administration Morphine Sulfate 2 mg 12/09/18 14:57 12/09/18 21:42 Morphine Sulfate IVPUSH 2 mg Q4H PRN Administration PAIN LEVEL 4 - 6 Ondansetron HCl 4 mg 12/09/18 18:07 Zofran Injection IVPB Q4H PRN NAUSEA Pantoprazole Sodium 40 mg 12/09/18 01:15 12/10/18 09:36 Protonix - PO 40 mg BID EMILY Administration ASSESSMENT AND PLAN: This is a 33 year old woman with a history of PUD, Paulie patch repair of perforated pyloric channel ulcer, HTN, hypertensive heart disease, severe MR, severe TR, moderate pulm HTN, diastolic heart failure, migraine headaches, depression who presented to the ED with abdominal pain. 1. Anemia, likely secondary to chronic GI blood loss from PUD - Continue Protonix bid, ferrous sulfate - Avoid NSAIDs - Outpatient EGD 2. HTN with hypertensive heart disease 3. Severe mitral regurgitation 4. Severe tricuspid regurgitation 5. Moderate pulm HTN 6. History of acute diastolic heart failure 7. Disposition - Ok for discharge home with outpatient follow up with GI for EGD and with PCP regarding HTN/hypertensive CV disease/valvular disease
--- NOTE | 2018-12-10 17:35 | DS ---
Physical Exam: SUBJECTIVE: Patient seen and examined at bedside this morning. She is tolerating regular diet without abdominal pain, nausea, vomiting. She denies subjective fevers, chills, shortness of breath, chest pain, palpitations. OBJECTIVE: Vital Signs Period Temp Pulse Resp BP Sys/Suárez Pulse Ox Last 24 Hr 98 F-98.7 F 99-110 18-18 104-155/61-88 98-98 PHYSICAL EXAM GENERAL: The patient is awake, alert, and fully oriented, in no acute distress. HEAD: Normocephalic, atraumatic EYES: PERRL, extraocular movements intact, sclera anicteric. ENT: Oropharynx clear without exudates, moist mucous membranes. NECK: Supple without lymphadenopathy, or JVD. LUNGS: Breath sounds equal, clear to auscultation bilaterally, no wheezes, no crackles. No accessory muscle use. HEART: Regular rate and rhythm, S1, S2 without murmur, rub or gallop. ABDOMEN: Soft, nontender to light an deep palpation X4 quadrants. Nondistended, normoactive bowel sounds X4 quadrants. No guarding, no rebound tenderness. No hepatosplenomegaly appreciated. EXTREMITIES: 2+ radial and dorsalis pedis pulses B/L. Warm, well-perfused. No lower extremity edema bilaterally. NEUROLOGICAL: Cranial nerves II through XII grossly intact. Normal speech. PSYCH: Normal mood, normal affect upon my encounter today. SKIN: Warm, dry. LABS Laboratory Results - last 24 hr 12/10/18 12/10/18 12/10/18 06:30 06:30 12:06 WBC 6.9 8.3 RBC 2.53 L 2.67 L Hgb 7.4 L 7.6 L Hct 22.8 L 24.1 L MCV 90.3 90.1 MCH 29.2 28.5 MCHC 32.4 31.6 L RDW 17.6 H 17.7 H Plt Count 797 H 836 H MPV 7.3 L 7.3 L Sodium 137 Potassium 4.2 Chloride 103 Carbon Dioxide 25 Anion Gap 9 BUN 7 Creatinine 0.4 L Creat Clearance w eGFR > 60 Random Glucose 89 Calcium 8.9 Phosphorus 3.6 Magnesium 2.5 H HOSPITAL COURSE: Date of Admission:12/09/18 Date of Discharge: 12/10/18 Patient is a 33 year old female with history of gastric ulcer, pyloric channel ulcer, hypertension, migraines, depression, presented with complaint of abdominal pain. She was placed NPO and started on Maalox, and Protonix. Morphine for pain control. Patient was evaluated by mri ct tech who discussed EGD as outpatient. Stated on Reglan and Zofran. Patient's diet was gradually advanced and patient tolerated well without abdominal pain, nausea, vomiting. Discussed with Dr. Sanchez that due to elevated Qtc interval (487), no Reglan or Zofran were prescribed for discharge. Patient was discharged with Protonix, and discussed over the counter Maalox as needed. Patient discharged to follow up with primary care physician and mri ct tech. Minutes to complete discharge: 35 Discharge Summary Reason For Visit: BLOODPRESENT IN STOOL Current Active Problems Abdominal pain (Acute) Anemia (Acute) Constipation (Chronic) Condition: Stable - Instructions Diet, Activity, Other Instructions: You were evaluated for your abdominal pain. You were evaluated by the mri ct tech and are being discharged home. We have made some changes to your medication regimen: Begin taking Protonix 40mg daily. You may take Maalox over the counter for upset stomach. Follow the dosage instructions on the bottle and DO NOT exceed the maximum dosage of 80mL within 24 hours. Follow up with your primary care doctor (Dr. Bella) within two- three days after discharge. Follow up with mri ct tech (Dr. Sanchez) with one week of discharge. You will require an endoscopy for further evaluation of your abdominal pain. We have provided you with a referral. Return to the nearest emergency department if you experience any worsening symptoms, any bleeding, fevers, chills, shortness of breath, chest pain, palpitations, abdominal pain, nausea, vomiting. Referrals: Berny Bella MD [Primary Care Provider] - 12/12/18 Inder Sanchez MD [Staff Physician] - 1 Week Disposition: HOME - Home Medications Comprehensive Discharge Medication List: Ambulatory Orders Pantoprazole Sodium [Protonix] 40 mg PO DAILY 28 Days #28 tablet. 12/10/18 This patient is new to me today: Yes Date on this admission: 12/10/18 Emergency Visit: Yes ED Registration Date: 12/09/18 Care time: The patient presented to the Emergency Department on the above date and was hospitalized for further evaluation of their emergent condition. Critical Care patient: No - Discharge Referral Referred to [facility] No
== END 2018-12-10 18:18 | disposition home or self-care (01) ==
LOC: JER 18:19 → SUPCPDRO 18:19 → JERBED 12-09 00:08 → J7W 12-09 14:25
PROVIDERS: ADMIT Internal Medicine; ATTEND Internal Medicine
PROC: 3E0337Z Introduction of Electrolytic and Water Balance Substance into Peripheral Vein, Percutaneous Approach (ICD-10-PCS; principal; 2018-12-09)
PROC: 3E033GC Introduction of Other Therapeutic Substance into Peripheral Vein, Percutaneous Approach (ICD-10-PCS; 2018-12-09)
PROC: 3E023NZ Introduction of Analgesics, Hypnotics, Sedatives into Muscle, Percutaneous Approach (ICD-10-PCS; 2018-12-09)
PROC: 3E0234Z Introduction of Serum, Toxoid and Vaccine into Muscle, Percutaneous Approach (ICD-10-PCS; 2018-12-09)
DX: R10.9 Unspecified abdominal pain (principal); I10 Essential (primary) hypertension; I34.0 Nonrheumatic mitral (valve) insufficiency; I07.1 Rheumatic tricuspid insufficiency; I27.20 Pulmonary hypertension, unspecified; I50.31 Acute diastolic (congestive) heart failure; D50.9 Iron deficiency anemia, unspecified; F41.9 Anxiety disorder, unspecified; F32.9 Major depressive disorder, single episode, unspecified; F17.210 Nicotine dependence, cigarettes, uncomplicated; R00.0 Tachycardia, unspecified; Z87.11 Personal history of peptic ulcer disease; Z23 Encounter for immunization
CPT/HCPCS: 36415; 80048; 80053; 81003; 81015; 82272; 82550; 83605; 83735; 84100; 84484; 84702; 84703; 85025; 85027; 85610; 85730; 86850; 86870; 86900; 86901; 86902; 87077; 87086; 90471; 90688; 93005; 93010; 93306-TC; 96365; 96372; 96374; 96376; 99285-25; G0378; J7030

== ENCOUNTER 2019-01-21 17:49 | Emergency (ER) | payer OTHER ==
[2019-01-21 18:03] VITALS: BP 167/107; PULSE 117; TEMP 98.7; BMI 30.2
--- NOTE | 2019-01-21 18:07 | PDOC ---
Rapid Medical Evaluation Chief Complaint: Pain, Acute Time Seen by Provider: 01/21/19 18:03 Medical Evaluation: Allergies Allergy/AdvReac Type Severity Reaction Status Date / Time No Known Drug Allergies Allergy Verified 01/21/19 18:03 Vital Signs Temp Pulse Resp BP Pulse Ox 98.7 F 117 H 20 167/107 H 99 01/21/19 18:01 01/21/19 18:01 01/21/19 18:01 01/21/19 18:01 01/21/19 18:01 01/21/19 18:04 I have performed a brief in-person evaluation of this patient. The patient presents with a chief complaint of: h/o gastric ulcers being followed by Dr. Sanchez and scheduled for endoscopy in 2 weeks due to anemia requiring iron supplement present with 5 days h/o epigastric pain worse with food. Denies diarrhea, N/V Pertinent physical exam findings: A&O x 3 I have ordered the following: CBC, CMP, lipase The patient will proceed to the ED for further evaluation Discharge Disposition - Diagnosis Abdominal pain Qualifiers: Abdominal location: epigastric Qualified Code(s): R10.13 - Epigastric pain - Discharge Dispostion Condition at time of disposition: Stable - Referrals - Patient Instructions - Post Discharge Activity
[2019-01-21 18:21] LABS: BASO % 1.1 % (0-2.0); HEMOGLOBIN 9.5 GM/dL (10.7-15.3); LYMPH % 22.3 % (8-40); MCH 26.7 pg (25.7-33.7); MCHC 31.7 g/dl (32.0-36.0); MEAN CELL VOLUME 84.3 fl (80-96); MEAN PLT VOLUME 8.1 fl (7.5-11.1); MONO % 5.8 % (3.8-10.2); NEUT % 68.8 % (42.8-82.8); PLATELET COUNT 309 K/MM3 (134-434); RBC 3.55 M/mm3 (3.60-5.2); RDW 21.9 % (11.6-15.6); WHITE BLOOD COUNT 9.2 K/mm3 (4.0-10.0)
[2019-01-21] MEDS ORDERED: ONDANSETRON 4 MG/2 ML VIAL IVPUSH ONE (18:39)
[2019-01-21] MEDS ORDERED: SODIUM CHLORIDE 1,000 ML IV STA (18:39)
[2019-01-21] MEDS ORDERED: FAMOTIDINE 20 MG/50 ML IVPB 20 MG/50 ML MG IVPB ONE ×2 (18:39→18:42)
[2019-01-21] MEDS ORDERED: ONDANSETRON 4 MG/2 ML VIAL ONE (18:42)
--- NOTE | 2019-01-21 18:45 | PDOC ---
History of Present Illness - General Chief Complaint: Pain, Acute Stated Complaint: ABD PAIN Time Seen by Provider: 01/21/19 18:03 History Source: Patient - History of Present Illness Timing/Duration: reports: constant, changing over time Abdominal Pain Onset Location: reports: generalized abdomen Past History - Past Medical History Allergies/Adverse Reactions: Allergies Allergy/AdvReac Type Severity Reaction Status Date / Time No Known Drug Allergies Allergy Verified 01/21/19 18:03 Home Medications: Ambulatory Orders Ferrous Sulfate [Feosol] 325 mg PO TID 01/21/19 Folic Acid - 1 mg PO DAILY 01/21/19 Polyethylene Glycol 3350 [Miralax (For Daily Use) -] 17 gm PO DAILY 01/21/19 Anemia: Yes (BLOOD TRANSFUSIONS) Asthma: No Cancer: No Cardiac Disorders: Yes (leaking valve) CVA: No COPD: No CHF: Yes Dementia: No Diabetes: No GI Disorders: Yes (ABDOMINAL BLOATING/PAIN/WT LOSS SINCE BLDING ULCER) Disorders: No HTN: Yes Hypercholesterolemia: No Liver Disease: No Psychiatric Problems: Yes (DEPRESSION,anxiety) Seizures: No Thyroid Disease: No - Surgical History Abdominal Surgery: Yes (perforated ulcer 2017) Appendectomy: No Cardiac Surgery: No Cholecystectomy: No Lung Surgery: No Neurologic Surgery: No Orthopedic Surgery: No - Family Disease History Family Disease History: Heart Disease: Grandparents - Reproductive History Cervical CA: No Dysfunctional Uterine Bleeding: No Ectopic : No Endometrial CA: No Polycystic Ovaries: No Tubal Ligation: No - Immunization History Immunization Up to Date: Yes - Suicide/Smoking/Psychosocial Hx Smoking History: Never smoked Have you smoked in the past 12 months: Yes Number of Cigarettes Smoked Daily: 10 Cigars Per Day: 0 'Breaking Loose' booklet given: 05/21/17 Hx Alcohol Use: No Drug/Substance Use Hx: No Substance Use Type: None Hx Substance Use Treatment: No Review of Systems - Review of Systems Constitutional: No: Chills, Fever Respiratory: No: Shortness of Breath Cardiac (ROS): No: Chest Pain, Palpitations ABD/GI: Yes: Nausea, Vomiting. No: Blood Streaked Bowels, Constipated, Diarrhea , Rectal Bleeding, Tarry Stools : No: Dysuria *Physical Exam - Vital Signs Last Vital Signs Temp Pulse Resp BP Pulse Ox 98.7 F 117 H 20 167/107 H 99 01/21/19 18:01 01/21/19 18:01 01/21/19 18:01 01/21/19 18:01 01/21/19 18:01 - Physical Exam General Appearance: Yes: Appropriately Dressed. No: Apparent Distress HEENT: positive: Normal Voice Neck: positive: Supple Respiratory/Chest: positive: Lungs Clear, Normal Breath Sounds. negative: Respiratory Distress Cardiovascular: positive: Regular Rate, S1, S2 Gastrointestinal/Abdominal: positive: Normal Bowel Sounds, Tender (diffusely), Soft, Other (well healed surgical scar to midline upper abd). negative: Distended, Guarding, Rebound Musculoskeletal: negative: CVA Tenderness Integumentary: positive: Dry, Warm Neurologic: positive: Fully Oriented, Alert, Normal Mood/Affect Moderate Sedation - Procedure Monitoring Vital Signs: Procedure Monitoring Vital Signs Temperature 98.7 F 01/21/19 18:01 Pulse Rate 117 H 01/21/19 18:01 Respiratory Rate 20 01/21/19 18:01 Blood Pressure 167/107 H 01/21/19 18:01 O2 Sat by Pulse Oximetry (%) 99 01/21/19 18:01 ED Treatment Course - LABORATORY CBC & Chemistry Diagram: 01/21/19 18:12 01/21/19 18:12 - ADDITIONAL ORDERS Additional order review: 01/21/19 18:12 RBC 3.55 L MCV 84.3 MCHC 31.7 L RDW 21.9 H MPV 8.1 D Neutrophils % 68.8 Lymphocytes % 22.3 D Monocytes % 5.8 Eosinophils % 2.0 D Basophils % 1.1 Medical Decision Making - Medical Decision Making 01/21/19 18:40 33 yo F, h/o depression, migraines, HTN, gastric ulcer (s/p perf), pyloric channel ulcer, anemia requiring transfusions, on iron pills, chronic abd pain, here w/ worsening of her usual abd pain x 2 days. Pain diffuse, described as burning in nature and constant w/ intensity of 10/10. Has not tried to eat since pain started. Pain not improved w/ tylenol which is the only thing she is taking for pain per pt. Also reports 2 e/o n/v. No hematemesis, change in BM, BRBPR, melena, f/c. Of note, last time pt admitted for abd pain was 12/[address] Laura salazar who rec outpt EGD. Pt states she was not able to have study done 2/2 her anemia See exam Recurrent abd pain H/o gastric ulcer w/ perf in past Unable to get recent EGD Pt sig hypertensive and tachy w/ diffuse ttp to abd -XR r/o free air -labs -GI cocktail -IVF -dispo pending 01/21/19 19:00 Signed out to EUGENIO Carpenter pending w/u/dispo *DC/Admit/Observation/Transfer Diagnosis at time of Disposition: Abdominal pain Qualifiers: Abdominal location: epigastric Qualified Code(s): R10.13 - Epigastric pain - Discharge Dispostion Condition at time of disposition: Stable - Referrals Referrals: Benry Bella MD [Primary Care Provider] - - Patient Instructions - Post Discharge Activity
[2019-01-21 18:50] LABS: ALBUMIN 4.4 g/dl (3.4-5.0); ALK PHOS 92 U/L (45-117); ANION GAP 11 MMOL/L (8-16); BILIRUBIN,TOTAL 0.3 mg/dL (0.2-1); BLOOD UREA NITROGEN 9 mg/dL (7-18); CHLORIDE 101 mmol/L (98-107); CO2 23 mmol/L (21-32); CREATININE 0.5 mg/dL (0.55-1.3); GLUCOSE,RANDOM 70 mg/dL (74-106); LIPASE 60 U/L (73-393); SGPT/ALT 14 U/L (13-61); SODIUM 135 mmol/L (136-145)
[2019-01-21 18:52] LABS: POTASSIUM 4.6 mmol/L (3.5-5.1); SGOT/AST 38 U/L (15-37)
[2019-01-21] MEDS ORDERED: PANTOPRAZOLE SODIUM 40 MG VIAL IVPUSH ONE (18:52)
[2019-01-21] MEDS ORDERED: PANTOPRAZOLE SODIUM 40 MG/100 ML BAG IVPB ONE (18:57)
--- NOTE | 2019-01-21 19:25 | PDOC ---
*Physical Exam - Vital Signs Last Vital Signs Temp Pulse Resp BP Pulse Ox 98.7 F 117 H 20 167/107 H 99 01/21/19 18:01 01/21/19 18:01 01/21/19 18:01 01/21/19 18:01 01/21/19 18:01 ED Treatment Course - LABORATORY CBC & Chemistry Diagram: 01/21/19 18:12 01/21/19 18:12 - ADDITIONAL ORDERS Additional order review: Laboratory Results 01/21/19 18:12 Sodium 135 L Potassium 4.6 Chloride 101 Carbon Dioxide 23 Anion Gap 11 BUN 9 Creatinine 0.5 L Creat Clearance w eGFR > 60 Random Glucose 70 L Calcium 9.0 Total Bilirubin 0.3 AST 38 H ALT 14 Alkaline Phosphatase 92 Total Protein 8.0 Albumin 4.4 Lipase 60 L 01/21/19 18:12 RBC 3.55 L MCV 84.3 MCHC 31.7 L RDW 21.9 H MPV 8.1 D Neutrophils % 68.8 Lymphocytes % 22.3 D Monocytes % 5.8 Eosinophils % 2.0 D Basophils % 1.1 - Medications Given in the ED: ED Medications Discontinued Medications Generic Name Dose Route Start Last Admin Trade Name Freq PRN Reason Stop Dose Admin Famotidine/Sodium Chloride 20 mg in 50 mls @ 100 mls/hr 01/21/19 18:39 18:43 Pepcid 20 Mg Premixed Ivpb - IVPB 01/21/19 19:08 100 mls/hr ONCE ONE Administration Ondansetron HCl 4 mg 01/21/19 18:39 01/21/19 18:43 Zofran Injection IVPUSH 01/21/19 18:40 4 mg ONCE ONE Administration Pantoprazole Sodium 40 mg 01/21/19 18:52 01/21/19 18:57 Protonix Iv IVPUSH 01/21/19 18:53 40 mg ONCE ONE Administration Medical Decision Making - Medical Decision Making 01/21/19 19:25 Patient seen by the advanced practice provider under my direct supervision. Ancillary testing reviewed as necessary. I agree with plan as outlined by the advanced practice provider. *DC/Admit/Observation/Transfer Diagnosis at time of Disposition: Abdominal pain Qualifiers: Abdominal location: epigastric Qualified Code(s): R10.13 - Epigastric pain - Discharge Dispostion Condition at time of disposition: Stable - Referrals Referrals: Berny Bella MD [Primary Care Provider] - - Patient Instructions - Post Discharge Activity
[2019-01-21] MEDS ORDERED: morphine CARPU-JECT 4 MG/1 ML DISP.SYRIN IVPUSH ONE (20:01)
[2019-01-21] MEDS ORDERED: morphine SULFATE 4 MG/ML VIAL ONE (20:09)
--- NOTE | 2019-01-21 20:17 | PDOC ---
*Physical Exam - Vital Signs Last Vital Signs Temp Pulse Resp BP Pulse Ox 98.7 F 117 H 20 167/107 H 99 01/21/19 18:01 01/21/19 18:01 01/21/19 18:01 01/21/19 18:01 01/21/19 18:01 ED Treatment Course - LABORATORY CBC & Chemistry Diagram: 01/21/19 18:12 01/21/19 18:12 - ADDITIONAL ORDERS Additional order review: Laboratory Results 01/21/19 01/21/19 19:11 18:12 Sodium 135 L Potassium 4.6 Chloride 101 Carbon Dioxide 23 Anion Gap 11 BUN 9 Creatinine 0.5 L Creat Clearance w eGFR > 60 Random Glucose 70 L Calcium 9.0 Total Bilirubin 0.3 AST 38 H ALT 14 Alkaline Phosphatase 92 Total Protein 8.0 Albumin 4.4 Lipase 60 L Serum , Qual Negative 01/21/19 18:12 RBC 3.55 L MCV 84.3 MCHC 31.7 L RDW 21.9 H MPV 8.1 D Neutrophils % 68.8 Lymphocytes % 22.3 D Monocytes % 5.8 Eosinophils % 2.0 D Basophils % 1.1 - RADIOLOGY Radiology Studies Ordered: Category Date Time Status ABDOMEN & PELVIS CT WITH CONTR [CT] Stat CT Scan 01/21/19 20:02 Ordered - Medications Given in the ED: ED Medications Discontinued Medications Generic Name Dose Route Start Last Admin Trade Name Freq PRN Reason Stop Dose Admin Sodium Chloride 1,000 mls @ 1,000 mls/hr 01/21/19 18:39 01/21/19 18:43 Normal Saline - IV 01/21/19 19:38 1,000 mls/hr ASDIR STA Administration Famotidine/Sodium Chloride 20 mg in 50 mls @ 100 mls/hr 01/21/19 18:39 18:43 Pepcid 20 Mg Premixed Ivpb - IVPB 01/21/19 19:08 100 mls/hr ONCE ONE Administration Ondansetron HCl 4 mg 01/21/19 18:39 01/21/19 18:43 Zofran Injection IVPUSH 01/21/19 18:40 4 mg ONCE ONE Administration Pantoprazole Sodium 40 mg 01/21/19 18:52 01/21/19 18:57 Protonix Iv IVPUSH 01/21/19 18:53 40 mg ONCE ONE Administration Medical Decision Making - Medical Decision Making Patient signed out to my by EUGENIO Aquino Patient mentions no improvement in pain despite meds given On PE, patient with hypoactive BS, diffuse abdominal TTP, more guarding along R side of abdomen Abdominal xray negative for free air but mild distension of bowel loops noted Will get CT A/P other acute pathology 01/21/19 20:12 Patient reassessed - appears comfortable, in NAD Patient had no episode of emesis while in ED CT A/P shows ileus without wall thickening, no obstruction noted; no free fluid or free air noted either Advised patient to f/u with her GI doctor, Dr. Sanchez D/W Dr. Juan Merchant for d/c 01/21/19 21:57 *DC/Admit/Observation/Transfer Diagnosis at time of Disposition: Abdominal pain Qualifiers: Abdominal location: epigastric Qualified Code(s): R10.13 - Epigastric pain - Discharge Dispostion Disposition: HOME Condition at time of disposition: Stable Decision to Admit order: No - Referrals Referrals: Berny Bella MD [Primary Care Provider] - 2 Days Inder Sanchez MD [Staff Physician] - 2 Days - Patient Instructions Printed Discharge Instructions: DI for Ileus Additional Instructions: Thank you for choosing [facility]. It was a pleasure taking care of you. Your CT scan showed evidence of ileus (lack of movement of intestines) with no evidence of bowel obstruction. No other acute findings were noted on your CT scan. Recommend you follow-up with your GI doctor, Dr. Sanchez, for further evaluation. Return to the Emergency Department if your symptoms worsen or persist, you have fever, shortness of breath, chest pain, severe abdominal pain, vomiting, unable to keep down liquids, not having bowel movements or other concerning symptoms. - Post Discharge Activity
== END 2019-01-21 22:29 | disposition home or self-care (01) ==
LOC: JER 17:49
PROC: 3E033GC Introduction of Other Therapeutic Substance into Peripheral Vein, Percutaneous Approach (ICD-10-PCS; principal; 2019-01-21)
PROC: 3E033NZ Introduction of Analgesics, Hypnotics, Sedatives into Peripheral Vein, Percutaneous Approach (ICD-10-PCS; 2019-01-21)
PROC: 3E033GC Introduction of Other Therapeutic Substance into Peripheral Vein, Percutaneous Approach (ICD-10-PCS; 2019-01-21)
PROC: 3E033GC Introduction of Other Therapeutic Substance into Peripheral Vein, Percutaneous Approach (ICD-10-PCS; 2019-01-21)
DX: I10 Essential (primary) hypertension (principal); I11.0 Hypertensive heart disease with heart failure; I50.9 Heart failure, unspecified; F41.8 Other specified anxiety disorders; F32.9 Major depressive disorder, single episode, unspecified
CPT/HCPCS: 36415; 74019-TC-FY; 74177-TC; 80053; 83690; 84703; 85025; 86850; 86870; 86900; 86901; 86902; 96365; 96375; 99283-25; J7030

== ENCOUNTER 2019-01-23 09:03 | Emergency (ER) | payer OTHER ==
[2019-01-23 09:12] VITALS: BMI 30.2
--- NOTE | 2019-01-23 09:23 | PDOC ---
Attending Attestation - Resident Resident Name: Silver Shell - HPI HPI: 01/23/19 11:12 Pt presents to the ED complaining of severe, diffuse abdominal pain that is worse than her chronic pain. Also complaining of multiple epsiodes of non bloody , non billious emesis that started yesterday. States that she has been unable to tolerate PO. PT has multiple visits to the ED for abdominal pain, the most recent of which was on 01/21. Pt had CT scan that was suspicious for illeus, but since she was not vomiting, she was sent home. Patient reports to me that she has not had a BM in more than a week and hasn't passed gas in 48 hours. - Physicial Exam PE: 01/23/19 11:14 Agree with resident exam. Patient is alert and oriented and appears mildly uncomfortable. CV: rrr no m/r/g Pulm: CTA b/l, no murmur. Abdomen: soft, mildly distended, diffusely tender without guarding or rebound. - Medical Decision Making 01/23/19 11:16 Pt presents to the ED complaining of worsening of her chronic diffuse abdominal pain and nausea and vomiting. Concerning for obstruction given her previous CT showing illeus, her vomiting, and her lack of bowel movements. Differential also includes gastroenteritis, chronic abdominal pain, unlikely ectopic , diverticulitis or IBD. Will give pain and nausea control and check labs and CT abdomen pelvis
[2019-01-23 09:59] LABS: BASO % 0.2 % (0-2.0); HEMATOCRIT 29.5 % (32.4-45.2); HEMOGLOBIN 9.2 GM/dL (10.7-15.3); LYMPH % 8.9 % (8-40); MCH 26.4 pg (25.7-33.7); MCHC 31.3 g/dl (32.0-36.0); MEAN CELL VOLUME 84.3 fl (80-96); MEAN PLT VOLUME 8.3 fl (7.5-11.1); MONO % 4.1 % (3.8-10.2); NEUT % 85.8 % (42.8-82.8); PLATELET COUNT 337 K/MM3 (134-434); RBC 3.51 M/mm3 (3.60-5.2); RDW 20.8 % (11.6-15.6); WHITE BLOOD COUNT 11.8 K/mm3 (4.0-10.0)
[2019-01-23] MEDS ORDERED: FAMOTIDINE 20 MG/50 ML IVPB 20 MG/50 ML MG IVPB ONE ×2 (10:08→10:28)
[2019-01-23] MEDS ORDERED: SODIUM CHLORIDE 1,000 ML IV STA (10:08)
[2019-01-23] MEDS ORDERED: morphine CARPU-JECT 2 MG/1 ML DISP.SYRIN IVPUSH ONE ×2 (10:36→13:32)
[2019-01-23] MEDS ORDERED: ONDANSETRON 4 MG/2 ML VIAL IVPB ONE (10:36)
--- NOTE | 2019-01-23 11:04 | PDOC ---
History of Present Illness - General Chief Complaint: Pain Stated Complaint: ABD PAIN Time Seen by Provider: 01/23/19 09:22 - History of Present Illness Initial Comments: 01/23/19 10:58 33 yo F with h/o HTN, anemia 2/2 chronic PUD ( h/o transfusions), moderate pulm HTN, diastolic HF, PUD s/p perforated viscous who p/w vomiting, constipation, and diffuse abdominal pain. Patient reports acute onset of diffuse, dull, crampy , unremitting abdominal pain x 3-4 days, worsening in severity over past 24 hours. Asx w/ 10+ episode nof NBNB emesis within past 24 hours. Decreased PO intake and appetite. Last BM x 1 week ago. Patient f/ GI Dr. Inder Sanchez. Last seen Dr. Sanchez x 2 weeks ago and started on Flagyl, PPI, and Colace. CT AP () with Ileus. Denies abdominal trauma, change in diet, recent travel or sick contacts. Patient denies BAILON, vision change, palpitations, cough, wheezing, orthopena, PND , leg swelling/pain, N/V, F,C, CP, SOB, urinary complaints, hematuria, BPR, abdominal pain, diarrhea, constipation, lightheadedness, weakness, sensory changes. PMHx: as noted above ROS: as noted SHx: tobacco 1 ppd. Denies IVDA Allergies: NKDA Past History - Past Medical History Allergies/Adverse Reactions: Allergies Allergy/AdvReac Type Severity Reaction Status Date / Time No Known Drug Allergies Allergy Verified 01/23/19 09:09 Home Medications: Ambulatory Orders Ferrous Sulfate [Feosol] 325 mg PO TID 01/21/19 Folic Acid - 1 mg PO DAILY 01/21/19 Polyethylene Glycol 3350 [Miralax (For Daily Use) -] 17 gm PO DAILY 01/21/19 Metronidazole 250 mg PO TID 01/23/19 Pantoprazole Sodium [Protonix -] 40 mg PO DAILY #30 tablet.ec 01/23/19 Ranitidine [Zantac -] 150 mg PO BID #30 tablet MDD 2 tab 01/23/19 Anemia: Yes (BLOOD TRANSFUSIONS) Asthma: No Cancer: No Cardiac Disorders: Yes (leaking valve) CVA: No COPD: No CHF: Yes Dementia: No Diabetes: No GI Disorders: Yes (ABDOMINAL BLOATING/PAIN/WT LOSS SINCE BLDING ULCER) Disorders: No HTN: Yes Hypercholesterolemia: No Liver Disease: No Psychiatric Problems: Yes (DEPRESSION,anxiety) Seizures: No Thyroid Disease: No - Surgical History Abdominal Surgery: Yes (perforated ulcer 2017) Appendectomy: No Cardiac Surgery: No Cholecystectomy: No Lung Surgery: No Neurologic Surgery: No Orthopedic Surgery: No - Family Disease History Family Disease History: Heart Disease: Grandparents - Reproductive History Cervical CA: No Dysfunctional Uterine Bleeding: No Ectopic : No Endometrial CA: No Polycystic Ovaries: No Tubal Ligation: No - Immunization History Immunization Up to Date: Yes - Suicide/Smoking/Psychosocial Hx Smoking History: Current every day smoker Have you smoked in the past 12 months: Yes Number of Cigarettes Smoked Daily: 20 Cigars Per Day: 0 Information on smoking cessation initiated: No 'Breaking Loose' booklet given: 05/21/17 Hx Alcohol Use: No Drug/Substance Use Hx: No Substance Use Type: None Hx Substance Use Treatment: No Review of Systems - Review of Systems Comments:: 01/23/19 11:04 GENERAL/CONSTITUTIONAL: No fever or chills. No weakness. HEAD, EYES, EARS, NOSE AND THROAT: No change in vision. No ear pain or discharge. No sore throat. CARDIOVASCULAR: No chest pain or shortness of breath RESPIRATORY: No cough, wheezing, or hemoptysis. GASTROINTESTINAL: + Abdominal pain, nausea, vomiting,. No constipation. GENITOURINARY: No dysuria, frequency, or change in urination. MUSCULOSKELETAL: No joint or muscle swelling or pain. No neck or back pain. SKIN: No rash NEUROLOGIC: No headache, vertigo, loss of consciousness, or change in strength/ sensation. ENDOCRINE: No increased thirst. No abnormal weight change HEMATOLOGIC/LYMPHATIC: No anemia, easy bleeding, or history of blood clots. ALLERGIC/IMMUNOLOGIC: No hives or skin allergy. *Physical Exam - Vital Signs Last Vital Signs Temp Pulse Resp BP Pulse Ox 98.3 F 124 H 20 145/103 H 100 01/23/19 09:09 01/23/19 09:09 01/23/19 09:09 01/23/19 09:35 01/23/19 09:09 - Physical Exam Comments: 01/23/19 11:06 GENERAL: Awake, alert, and fully oriented, in no acute distress HEAD: No signs of trauma, normocephalic, atraumatic EYES: PERRLA, EOMI, sclera anicteric, conjunctiva clear ENT: Auricles normal inspection, hearing grossly normal, nares patent, oropharynx clear without exudates. Moist mucosa NECK: Normal ROM, supple, no lymphadenopathy, JVD, or masses LUNGS: No distress, speaks full sentences, clear to auscultation bilaterally HEART: Regular rate and rhythm, normal S1 and S2, no murmurs, rubs or gallops, peripheral pulses normal and equal bilaterally. ABDOMEN: + Diffuse ttp. Soft, NDS, normoactive bowel sounds. No guarding, no rebound. No masses. Neg CVA ttp. EXTREMITIES : Normal inspection, Normal range of motion, no edema. No clubbing or cyanosis. NEUROLOGICAL: Cranial nerves II through XII grossly intact. Normal speech, normal gait, no focal sensorimotor deficits SKIN: Warm, Dry, normal turgor, no rashes or lesions noted Moderate Sedation - Procedure Monitoring Vital Signs: Procedure Monitoring Vital Signs Temperature 98.3 F 01/23/19 09:09 Pulse Rate 124 H 01/23/19 09:09 Respiratory Rate 20 01/23/19 09:09 Blood Pressure 145/103 H 01/23/19 09:35 O2 Sat by Pulse Oximetry (%) 100 01/23/19 09:09 ED Treatment Course - LABORATORY CBC & Chemistry Diagram: 01/23/19 09:47 01/23/19 09:15 - ADDITIONAL ORDERS Additional order review: Laboratory Results 01/23/19 09:47 WBC 11.8 H RBC 3.51 L Hgb 9.2 L Hct 29.5 L MCV 84.3 MCH 26.4 MCHC 31.3 L RDW 20.8 H Plt Count 337 MPV 8.3 Absolute Neuts (auto) 10.1 H Neutrophils % 85.8 H D Lymphocytes % 8.9 D Monocytes % 4.1 Eosinophils % 1.0 Basophils % 0.2 Nucleated RBC % 0 01/23/19 09:47 RBC 3.51 L MCV 84.3 MCHC 31.3 L RDW 20.8 H MPV 8.3 Neutrophils % 85.8 H D Lymphocytes % 8.9 D Monocytes % 4.1 Eosinophils % 1.0 Basophils % 0.2 - RADIOLOGY Radiology Studies Ordered: 01/23/19 15:07 Charley Mcgovern Name: MITUL SMITH DEPARTMENT OF RADIOLOGY Phys: [employer] RESIDENT : 1985 Age: 33 Sex: F [facility] Acct: [id number] Loc: [address] Exam Date: 01/23/19 Status: [place] [id number] Unit Number: [id number] EXAM#: TYPE/EXAM: RESULT: [id number] CT/ABDOMEN PELVIS CT W/O CONTR HISTORY PROVIDED: Abdominal pain TECHNIQUE: Sequential axial images were obtained from the domes of the diaphragm through the symphysis pubis. The study is limited without the use of any contrast material. Since a prior study of 01/21/2019, there has been little significant change. The stomach remains mildly distended without obvious gastric outlet obstruction. Endoscopic correlation may be warranted. The gallbladder remains mildly distended without evidence of cholelithiasis. There is no evidence of pneumoperitoneum, bowel obstruction or intra-abdominal abscess. There is no CT evidence of acute appendicitis or diverticulitis. The liver, spleen, pancreas, adrenal glands and kidneys demonstrate no significant abnormalities. There is no evidence of intra- abdominal or retroperitoneal lymphadenopathy or fluid collections. Examination of the pelvis demonstrates bilateral ovarian cysts. The right ovarian cyst measures approximately 3.6 cm and the left ovarian cyst measures approximately 2.1 cm. There is no evidence of pelvic masses, fluid collections or lymphadenopathy. There is no evidence of acute bony abnormalities. IMPRESSION: 1. Mild gastric distention without obvious outlet obstruction. 2. Distended gallbladder without evidence of cholelithiasis. 3. Bilateral ovarian cysts. There has been no significant change since 01/21/2019. Please see above discussion. Reported By: Nicholas Alba MD 01/23/19 1427 [employer] Technologist: Fanny Pinto Transcribed Date/Time: 01/23/191426 Pickling Operator: Nicholas Alba Printed Date/Time: By: - Medications Given in the ED: ED Medications Discontinued Medications Generic Name Dose Route Start Last Admin Trade Name Freq PRN Reason Stop Dose Admin Famotidine/Sodium Chloride 20 mg in 50 mls @ 100 mls/hr 01/23/19 10:08 10:36 Pepcid 20 Mg Premixed Ivpb - IVPB 01/23/19 10:37 100 mls/hr ONCE ONE Administration Medical Decision Making - Medical Decision Making 01/23/19 11:04 33 yo F with h/o HTN, anemia 2/2 chronic PUD, moderate pulm HTN, diastolic HF, perforated viscous who p/w vomiting x10, constipation, and diffuse abdominal pain within past 24 hours. HR 124, BP 162/108, vitals otherwise wnl, AF. + diffuse abdominal ttp. R/o SBO. Will consider constipation, gastirits, biliary dz. esophagitis, PUD, nephrolithaisis. Will provide analgesia, and fluid resuscitation. ED Course: Morphine 2 mg, Zofran 2 mg, NS [address] AP CBC, CMP: Unremarkable Serum Preg: Neg 01/23/19 11:45 CMP: Unremarkable UA: Neg 01/23/19 15:07 CTAP: IMPRESSION: 1. Mild gastric distention without obvious outlet obstruction. 2. Distended gallbladder without evidence of cholelithiasis. 3. Bilateral ovarian cysts. There has been no significant change since 01/21/2019. Please see above discussion. Reported By: Nicholas Alba MD 01/23/19 15:09 Patient stable for d/c with return precautions. Advised to f/u with GI. Patient able to tolerate PO intake. 01/23/19 15:34 Pepcid and Ranitidine sent to pharmacy. *DC/Admit/Observation/Transfer Diagnosis at time of Disposition: Abdominal pain Qualifiers: Abdominal location: generalized Qualified Code(s): R10.84 - Generalized abdominal pain - Discharge Dispostion Disposition: HOME Condition at time of disposition: Stable Decision to Admit order: No - Prescriptions Prescriptions: Pantoprazole Sodium [Protonix -] 40 mg PO DAILY #30 tablet.ec Ranitidine [Zantac -] 150 mg PO BID #30 tablet MDD 2 tab - Referrals Referrals: Berny Bella MD [Primary Care Provider] - - Patient Instructions Printed Discharge Instructions: DI for Abdominal Pain-Adult Additional Instructions: Please return to the emergency department with any new or worsening symptoms or concerns. Please follow up with your radiation protection engineer within 72 hours. - Post Discharge Activity - Attestations Physician Attestion: 01/23/19 15:11 I attest to the information provided in this note.
[2019-01-23 11:19] LABS: ALBUMIN 4.5 g/dl (3.4-5.0); ALK PHOS 101 U/L (45-117); ANION GAP 11 MMOL/L (8-16); BILIRUBIN,TOTAL 0.3 mg/dL (0.2-1); BLOOD UREA NITROGEN 8 mg/dL (7-18); CALCIUM 9.4 mg/dL (8.5-10.1); CHLORIDE 101 mmol/L (98-107); CO2 24 mmol/L (21-32); CREATININE 0.5 mg/dL (0.55-1.3); GLUCOSE,RANDOM 91 mg/dL (74-106); LIPASE 81 U/L (73-393); SGOT/AST 22 U/L (15-37); SGPT/ALT 9 U/L (13-61); SODIUM 136 mmol/L (136-145); TOT PROT 8.5 g/dl (6.4-8.2)
[2019-01-23] MEDS ORDERED: MORPHINE SULFATE 2 MG/ML VIAL ONE ×2 (12:00→13:47)
[2019-01-23] MEDS ORDERED: ONDANSETRON 4 MG/2 ML VIAL ONE ×2 (12:01→13:47)
[2019-01-23] MEDS ORDERED: ACETAMINOPHEN 1000 MG/100 ML VIAL (NON FORMULARY) IVPB ONE (13:32)
[2019-01-23] MEDS ORDERED: ONDANSETRON 4 MG/2 ML VIAL IVPUSH ONE (13:32)
[2019-01-23] MEDS ORDERED: ACETAMINOPHEN INJECTION 100 ML IVPB ONE (13:47)
[2019-01-23 14:28] VITALS: TEMP 97.5
[2019-01-23 16:09] VITALS: BP 161/100; PULSE 119
== END 2019-01-23 16:07 | disposition home or self-care (01) ==
LOC: JER 09:03
PROC: 3E033GC Introduction of Other Therapeutic Substance into Peripheral Vein, Percutaneous Approach (ICD-10-PCS; principal; 2019-01-23)
PROC: 3E033GC Introduction of Other Therapeutic Substance into Peripheral Vein, Percutaneous Approach (ICD-10-PCS; 2019-01-23)
PROC: 3E033NZ Introduction of Analgesics, Hypnotics, Sedatives into Peripheral Vein, Percutaneous Approach (ICD-10-PCS; 2019-01-23)
PROC: 3E033NZ Introduction of Analgesics, Hypnotics, Sedatives into Peripheral Vein, Percutaneous Approach (ICD-10-PCS; 2019-01-23)
PROC: 3E033NZ Introduction of Analgesics, Hypnotics, Sedatives into Peripheral Vein, Percutaneous Approach (ICD-10-PCS; 2019-01-23)
DX: R10.84 Generalized abdominal pain (principal); I11.0 Hypertensive heart disease with heart failure; I50.32 Chronic diastolic (congestive) heart failure; Z87.11 Personal history of peptic ulcer disease; D64.9 Anemia, unspecified; F41.8 Other specified anxiety disorders; F32.9 Major depressive disorder, single episode, unspecified
CPT/HCPCS: 36415; 74176-TC; 80053; 83690; 84703; 85025; 99283-25; J0131; J7030

== ENCOUNTER 2019-02-01 17:43 | Emergency (ER) | payer OTHER ==
[2019-02-01 17:58] VITALS: BP 137/91; PULSE 119; TEMP 98.5; BMI 23.4
--- NOTE | 2019-02-01 19:25 | PDOC ---
History of Present Illness - General Chief Complaint: Pain Stated Complaint: ABDOMINAL PAIN Time Seen by Provider: 02/01/19 19:20 History Source: Patient Exam Limitations: No Limitations - History of Present Illness Travel History: No Initial Comments: 02/01/19 19:20 Best Contact: PCP: Dr. Berny Bella/ [phone] Dr. Sanchez/GI, saw him today 02/01/2019, upper endoscopy done Pmhx: Anemia, depression, migraines Pshx: 2016: exp lap/abd pain ("Ulcer ruptured) Allergies: NKDA FH: Mother/CAD (65 years alive); Father/Alzheimers (78 yo alive) Social Hx: Cigarettes/ 10 cigarettes daily x10 years Alcohol/ Denies Drugs/ Denies LMP:01/26/2019 33-year-old female presents to the emergency department complaining of diffuse abdominal pain approximately 3 hours after having a upper endoscopy done earlier this afternoon. Patient states the pain is described as 6/10 dull nonradiating intermittent discomfort. The pain is exacerbated on touch and alleviated at rest. Patient denies fever, chills, nausea/vomiting, headache, dizziness, lightheadedness, chest pain, shortness of breath, back pains, flank pains, urinary symptoms: Frequency/urgency/hesitancy, hematuria. Past History - Past Medical History Allergies/Adverse Reactions: Allergies Allergy/AdvReac Type Severity Reaction Status Date / Time No Known Drug Allergies Allergy Verified 02/01/19 18:15 Home Medications: Ambulatory Orders Ferrous Sulfate [Feosol] 325 mg PO TID 01/21/19 Folic Acid - 1 mg PO DAILY 01/21/19 Polyethylene Glycol 3350 [Miralax (For Daily Use) -] 17 gm PO DAILY 01/21/19 Metronidazole 250 mg PO TID 01/23/19 Pantoprazole Sodium [Protonix -] 40 mg PO DAILY #30 tablet.ec 01/23/19 Ranitidine [Zantac -] 150 mg PO BID #30 tablet MDD 2 tab 01/23/19 Anemia: Yes (BLOOD TRANSFUSIONS) Asthma: No Cancer: No Cardiac Disorders: Yes (leaking valve) CVA: No COPD: No CHF: Yes Dementia: No Diabetes: No GI Disorders: Yes (ABDOMINAL BLOATING/PAIN/WT LOSS SINCE BLDING ULCER) Disorders: No HTN: Yes Hypercholesterolemia: No Liver Disease: No Psychiatric Problems: Yes (DEPRESSION,anxiety) Seizures: No Thyroid Disease: No - Surgical History Abdominal Surgery: Yes (perforated ulcer 2017) Appendectomy: No Cardiac Surgery: No Cholecystectomy: No Lung Surgery: No Neurologic Surgery: No Orthopedic Surgery: No - Family Disease History Family Disease History: Heart Disease: Grandparents - Reproductive History Cervical CA: No Dysfunctional Uterine Bleeding: No Ectopic : No Endometrial CA: No Polycystic Ovaries: No Tubal Ligation: No - Immunization History Immunization Up to Date: Yes - Suicide/Smoking/Psychosocial Hx Smoking History: Current every day smoker Have you smoked in the past 12 months: Yes Number of Cigarettes Smoked Daily: 10 Cigars Per Day: 0 Information on smoking cessation initiated: No 'Breaking Loose' booklet given: 05/21/17 Hx Alcohol Use: No Drug/Substance Use Hx: No Substance Use Type: None Hx Substance Use Treatment: No Review of Systems - Review of Systems Able to Perform ROS?: Yes Comments:: 02/01/19 21:54 CONSTITUTIONAL: Absent: fever, chills, diaphoresis, generalized weakness, malaise, loss of appetite HEENT: Absent: rhinorrhea, nasal congestion, throat pain, throat swelling, difficulty swallowing, mouth swelling, ear pain, eye pain, visual Changes CARDIOVASCULAR: Absent: chest pain, loss of consciousness, palpitations, irregular heart rate, peripheral edema RESPIRATORY: Absent: cough, shortness of breath, dyspnea with exertion, orthopnea, wheezing, stridor, hemoptysis GASTROINTESTINAL: diffuse abd pain Absent: abdominal distension, nausea, vomiting, diarrhea, constipation, melena , hematochezia GENITOURINARY: Absent: dysuria, frequency, urgency, hesitancy, hematuria, flank pain, genital pain MUSCULOSKELETAL: Absent: myalgia, arthralgia, joint swelling SKIN: Absent: rash, itching, pallor HEMATOLOGIC/IMMUNOLOGIC: Absent: easy bleeding, easy bruising, lymphadenopathy, frequent infections ENDOCRINE: Absent: unexplained weight gain, unexplained weight loss, heat intolerance, cold intolerance NEUROLOGIC: Absent: headache, focal weakness or paresthesias, dizziness, unsteady gait, seizure, mental status changes, bladder or bowel incontinence PSYCHIATRIC: Absent: anxiety, depression, suicidal or homicidal ideation, hallucinations. Is the patient limited Guatemalan proficient: No *Physical Exam - Vital Signs Last Vital Signs Temp Pulse Resp BP Pulse Ox 98.5 F 119 H 16 137/91 99 02/01/19 17:55 02/01/19 17:55 02/01/19 17:55 02/01/19 17:55 02/01/19 17:55 - Physical Exam Comments: 02/01/19 21:54 GENERAL: Well developed, well nourished. Awake and alert. No acute distress. HEENT: Normocephalic, atraumatic. PERRLA, EOMI. No conjunctival pallor. Sclera are non- icteric. Moist mucous membranes. Oropharynx is clear. NECK: Supple. Full ROM. No JVD. Carotid pulses 2+ and symmetric, without bruits. No thyromegaly. No lymphadenopathy. CARDIOVASCULAR: Regular rate and rhythm. No murmurs, rubs, or gallops. Distal pulses are 2+ and symmetric. PULMONARY: No evidence of respiratory distress. Lungs clear to auscultation bilaterally. No wheezing, rales or rhonchi. ABDOMINAL: +Mid abd pain on deep palp Soft. Non-distended. No rebound or guarding. No organomegaly. Normoactive bowel sounds. MUSCULOSKELETAL Normal range of motion at all joints. No bony deformities or tenderness. No CVA tenderness. EXTREMITIES: No cyanosis. No clubbing. No edema. No calf tenderness. SKIN: Warm and dry. Normal capillary refill. No rashes. No jaundice. NEUROLOGICAL: Alert, awake, appropriate. Cranial nerves 2-12 intact. No deficits to light touch and temperature in face, upper extremities and lower extremities. No motor deficits in the in face, upper extremities and lower extremities. Normoreflexic in the upper and lower extremities. Normal speech. Toes are down- going bilaterally. Gait is normal without ataxia. PSYCHIATRIC: Cooperative. Good eye contact. Appropriate mood and affect. Moderate Sedation - Procedure Monitoring Vital Signs: Procedure Monitoring Vital Signs Temperature 98.5 F 02/01/19 17:55 Pulse Rate 119 H 02/01/19 17:55 Respiratory Rate 16 02/01/19 17:55 Blood Pressure 137/91 02/01/19 17:55 O2 Sat by Pulse Oximetry (%) 99 02/01/19 17:55 ED Treatment Course - LABORATORY CBC & Chemistry Diagram: 02/01/19 20:13 02/01/19 20:13 - RADIOLOGY Radiograph Interpretation: 02/01/19 21:55 CAT scan abdomen and pelvis with by mouth and IV contrast: Progress Note - Progress Note Progress Note: 2001hrs: Patient kept insisting that she wants Percocet IV. I cleaned to the patient that there is no such thing as intravenous Percocet. I informed the patient that she will need to give us urine to check for a urine prior to any pain medication otherwise she can get Tylenol. Patient states she will wait until she gives her urine. 2100hrs: Patient talking loudly on her cellular phone and does not seem to be in any distress. 2105hrs: Patient states she is insisting on Percocet intravenous. Patient states she refuses to give us any urine. Patient was loud and boisterous, yelling and cursing at the staff members. Patient states "I will blow up the place if I don't get Percocet in my veins" 0hrs: Patient sleeping in the vertical chairs no obvious distress. 3hrs: Patient awoke from her nap on the vertical chairs and states she will not stay in the ER and insists on walking out without signing any forms. *DC/Admit/Observation/Transfer Diagnosis at time of Disposition: Abdominal pain Qualifiers: Abdominal location: generalized Qualified Code(s): R10.84 - Generalized abdominal pain - Discharge Dispostion Disposition: ELOPED - Referrals - Patient Instructions - Post Discharge Activity
[2019-02-01 20:22] LABS: BASO % 0.5 % (0-2.0); EOS % 0.7 % (0-4.5); HEMATOCRIT 25.9 % (32.4-45.2); HEMOGLOBIN 8.3 GM/dL (10.7-15.3); LYMPH % 20.8 % (8-40); MCH 26.6 pg (25.7-33.7); MCHC 32.2 g/dl (32.0-36.0); MEAN CELL VOLUME 82.8 fl (80-96); MEAN PLT VOLUME 7.4 fl (7.5-11.1); RBC 3.12 M/mm3 (3.60-5.2); RDW 21.7 % (11.6-15.6); WHITE BLOOD COUNT 13.7 K/mm3 (4.0-10.0)
[2019-02-01 20:23] LABS: PLATELET COUNT 1166 K/MM3 (134-434)
[2019-02-01 22:03] LABS: ANISOCYTOSIS 3+; MACROCYTOSIS 1+
[2019-02-01 22:04] LABS: PLATELET ESTIMATE INCREASED
== END 2019-02-01 21:45 | disposition left against medical advice (07) ==
LOC: JER 17:43
DX: I25.10 Atherosclerotic heart disease of native coronary artery without angina pectoris (principal); I11.0 Hypertensive heart disease with heart failure; D64.9 Anemia, unspecified; F41.8 Other specified anxiety disorders; F32.9 Major depressive disorder, single episode, unspecified; Z87.19 Personal history of other diseases of the digestive system
CPT/HCPCS: 36415; 85025; 99283-25

== ENCOUNTER 2019-03-11 22:39 | Inpatient (IN) | payer OTHER ==
--- NOTE | 2019-03-12 00:38 | PDOC ---
History of Present Illness - General Chief Complaint: Pain Stated Complaint: ABD PAIN Time Seen by Provider: 03/12/19 00:36 History Source: Patient Exam Limitations: No Limitations Past History - Travel Traveled outside of the country in the last 30 days: No Close contact w/someone who was outside of country & ill: No - Past Medical History Allergies/Adverse Reactions: Allergies Allergy/AdvReac Type Severity Reaction Status Date / Time No Known Drug Allergies Allergy Verified 03/11/19 23:12 Home Medications: Ambulatory Orders Ferrous Sulfate [Feosol] 325 mg PO TID 01/21/19 Folic Acid - 1 mg PO DAILY 01/21/19 Polyethylene Glycol 3350 [Miralax (For Daily Use) -] 17 gm PO DAILY 01/21/19 Metronidazole 250 mg PO TID 01/23/19 Pantoprazole Sodium [Protonix -] 40 mg PO DAILY #30 tablet.ec 01/23/19 Ranitidine [Zantac -] 150 mg PO BID #30 tablet MDD 2 tab 01/23/19 Anemia: Yes (BLOOD TRANSFUSIONS) Asthma: No Cancer: No Cardiac Disorders: Yes (leaking valve) CVA: No COPD: No CHF: Yes Dementia: No Diabetes: No GI Disorders: Yes (ABDOMINAL BLOATING/PAIN/WT LOSS SINCE BLDING ULCER) Disorders: No HTN: Yes Hypercholesterolemia: No Liver Disease: No Psychiatric Problems: Yes (DEPRESSION,anxiety) Seizures: No Thyroid Disease: No - Surgical History Abdominal Surgery: Yes (perforated ulcer 2016) Appendectomy: No Cardiac Surgery: No Cholecystectomy: No Lung Surgery: No Neurologic Surgery: No Orthopedic Surgery: No - Family Disease History Family Disease History: Heart Disease: Grandparents - Reproductive History Cervical CA: No Dysfunctional Uterine Bleeding: No Ectopic : No Endometrial CA: No Polycystic Ovaries: No Tubal Ligation: No - Immunization History Immunization Up to Date: Yes - Suicide/Smoking/Psychosocial Hx Smoking History: Current every day smoker Have you smoked in the past 12 months: Yes Number of Cigarettes Smoked Daily: 10 Cigars Per Day: 0 Information on smoking cessation initiated: No 'Breaking Loose' booklet given: 05/21/17 Hx Alcohol Use: No Drug/Substance Use Hx: No Substance Use Type: None Hx Substance Use Treatment: No Review of Systems - Review of Systems Able to Perform ROS?: Yes Is the patient limited Tuvaluan proficient: No *Physical Exam - Vital Signs Last Vital Signs Temp Pulse Resp BP Pulse Ox 98.6 F 100 H 18 129/80 100 03/11/19 23:08 03/11/19 23:08 03/11/19 23:08 03/11/19 23:08 03/11/19 23:08 - Physical Exam Comments: Vitals stable, pt afebrile. Pt in NAD, normal body habitus. Pt alert and oriented x3. telesales advisor generally intact, muscular strength and sensation intact. No midline spinal tenderness, step-offs, or crepitus. Head normocephalic, atraumatic. Eyes PERRLA, EOMI. Oropharynx without erythema or exudates, no LAD b/l. No nasal congestion, hearing intact. Clear heart sounds, S1/S2, no JVD, b/l pedal edema, or heart murmur. Clear lung sounds, no respiratory distress, wheezes, crackles, or accessory muscle use. No abdominal or CVA tenderness to palpation, no rebound, no guarding. Abdomen soft, non-distended, and with normoactive bowel sounds. Skin without jaundice or rash. 03/12/19 04:37 ED Treatment Course - LABORATORY CBC & Chemistry Diagram: 03/12/19 01:34 03/12/19 01:34 Medical Decision Making - Medical Decision Making Pt was seen at bedside, also will be seen by attending Dr. Martinez. Pt presenting with Considering [vs vs] Ordered work-up including [labs] and [imaging]. Provided [interventions/meds] for improvement of [pain/symptom control]. Will continue to reassess pt and monitor for symptomatic improvement. ECG: NSR, intervals WNL. No TWIs or significant ST segment changes. No significant changes from prior ECG. CT abd/pelvis with IV contrast showed gastritis with surrounding mesenteric adenitis. Pt admitted to hospitalist team (Dr. Easley). Pt signed consent forms for blood transfusion. Consult order placed for Dr. Sanchez. 03/12/19 04:30 *DC/Admit/Observation/Transfer - Referrals - Patient Instructions - Post Discharge Activity
[2019-03-12] MEDS ORDERED: SODIUM CHLORIDE 1,000 ML IV STA (00:57)
[2019-03-12] MEDS ORDERED: ACETAMINOPHEN 1000 MG/100 ML VIAL (NON FORMULARY) IVPB ONE (00:57)
[2019-03-12] MEDS ORDERED: FAMOTIDINE 20 MG/50 ML IVPB 20 MG/50 ML MG IVPB ONE (00:57)
[2019-03-12] MEDS ORDERED: ONDANSETRON 4 MG/2 ML VIAL IVPUSH ONE (00:57)
[2019-03-12 01:46] LABS: HEMATOCRIT 13.6 % (32.4-45.2); MCH 24.5 pg (25.7-33.7)
[2019-03-12 01:52] LABS: BASO % 2.5 % (0-2.0); EOS % 2.1 % (0-4.5); MCHC 29.8 g/dl (32.0-36.0); MEAN CELL VOLUME 82.2 fl (80-96); MEAN PLT VOLUME 8.9 fl (7.5-11.1); MONO % 6.2 % (3.8-10.2); NEUT % 68.2 % (42.8-82.8); PLATELET COUNT 373 K/MM3 (134-434); RBC 1.66 M/mm3 (3.60-5.2); RDW 23.2 % (11.6-15.6); WHITE BLOOD COUNT 8.6 K/mm3 (4.0-10.0)
[2019-03-12 01:57] LABS: HEMOGLOBIN 4.1 GM/dL (10.7-15.3)
[2019-03-12] MEDS ORDERED: ONDANSETRON 4 MG/2 ML VIAL ONE (02:09)
[2019-03-12] MEDS ORDERED: ACETAMINOPHEN INJECTION 100 ML IVPB ONE (02:09)
[2019-03-12 02:10] LABS: ALBUMIN 3.2 g/dl (3.4-5.0); ALK PHOS 103 U/L (45-117); ANION GAP 13 MMOL/L (8-16); BILIRUBIN,TOTAL 0.3 mg/dL (0.2-1); BLOOD UREA NITROGEN 5 mg/dL (7-18); CALCIUM 9.2 mg/dL (8.5-10.1); CHLORIDE 104 mmol/L (98-107); CO2 22 mmol/L (21-32); CREATININE 0.5 mg/dL (0.55-1.3); GLUCOSE,RANDOM 72 mg/dL (74-106); LIPASE 59 U/L (73-393); MAGNESIUM 2.3 mg/dL (1.8-2.4); POTASSIUM 3.3 mmol/L (3.5-5.1); SGOT/AST 16 U/L (15-37); SGPT/ALT 11 U/L (13-61); SODIUM 140 mmol/L (136-145); TOT PROT 7.3 g/dl (6.4-8.2)
[2019-03-12 02:26] LABS: INR 1.26 (0.83-1.09); PROTHROMBIN TIME (PATIENT) 14.9 SEC (9.7-13.0)
[2019-03-12] MEDS ORDERED: PANTOPRAZOLE SODIUM 40 MG VIAL IVPUSH ONE (02:34)
[2019-03-12] MEDS ORDERED: PANTOPRAZOLE SODIUM 40 MG/100 ML BAG IVPB ONE (03:03)
--- NOTE | 2019-03-12 03:28 | PDOC ---
Documentation entered by Capri Parada SCRIBE, acting as scribe for Araceli Martinez DO. Araceli Martinez DO: This documentation has been prepared by the Tal craig Daisy, SCRIBE, under my direction and personally reviewed by me in its entirety. I confirm that the documentation accurately reflects all work , treatment, procedures, and medical decision making performed by me. Attending Attestation - Resident Resident Name: ArinaMagi - ED Attending Attestation I have performed the following: I have examined & evaluated the patient, The case was reviewed & discussed with the resident, I agree w/resident's findings & plan - HPI HPI: 03/12/19 02:48 The patient is a 33 YOF with a perforated ulcer, HTN, CHF, and anemia who presents to the ER for worsening epigastric pain. She also admits to difficulty tolerating PO intake. Patient states she has received blood transfusions in the past. Last endoscopy was done by Dr. Sanchez. Allergies: NKDA PCP: Dr. Baker - Physicial Exam PE: 03/12/19 02:54 Agree with resident's exam. - Critical Care Time Total Critical Care Time: 40 Critical Care Statement: The care of this patient involved high complexity decision making to prevent further life threatening deterioration of the patient 's condition and/or to evaluate & treat vital organ system(s) failure or risk of failure. - Medical Decision Making 03/12/19 03:17 33-year-old female with history of perforated gastric ulcer no with increasing upper abdominal pain and weakness Labs are consistent with a severe anemia requiring transfusion which has been initiated in the emergency department Due to increasing pain a CT scan of the abdomen and pelvis has been ordered Patient has been made aware of risks of exposure to radiation as she has had multiple CT scans in the past, she understands the risks and has agreed to CT scan at this time
[2019-03-12 04:06] LABS: ANISOCYTOSIS 1+
[2019-03-12 04:07] LABS: PLATELET ESTIMATE INCREASED; TARGET CELLS 1+
[2019-03-12] MEDS ORDERED: POTASSIUM CHLORIDE TABS 20 MEQ TABLET.ER (FP) PO ONE (04:07)
--- NOTE | 2019-03-12 04:29 | PN ---
Teaching Attending Note Name of Resident: Erica Rodgers ATTENDING PHYSICIAN STATEMENT I saw and evaluated the patient. I reviewed the resident's note and discussed the case with the resident. I agree with the resident's findings and plan as documented. SUBJECTIVE: Seen and examined; please refer to resident note for further historical information. Briefly, this is a 33 y/o female with a PMH significant for Abdominal pain present for several days and has been gruadually worsening; couldn't keep any food down and is nauseous now. NBNB vomit. She chose to come to the ER based on this pain worsning. Similar to her previous gastritis pain. She tells us that she was recently seen by Dr. Sanchez's group for EGD at the beginning of the month; report isn't available but she states that she was told she would need surgery for her gastritis. She has yet to see a surgeon; has been seen by Dr. Robin in the past when she had a perforated ulcer. She is found to have a Hb in the 4-range; she is feeling somewhat faint but no syncope, etc. No blood in stool and negative FOBT. She is no longer taking metronidazole which was Rx'd earlier from Dr. Sanchez 10 sys ROS done and negative aside from HPI PMH, PSH, FH, SH reviewed Home Medications Medication Instructions Recorded Ferrous Sulfate [Feosol] 325 mg PO TID 01/21/19 Folic Acid - 1 mg PO DAILY 01/21/19 Polyethylene Glycol 3350 [Miralax 17 gm PO DAILY 01/21/19 (For Daily Use) -] Metronidazole 250 mg PO TID 01/23/19 Pantoprazole Sodium [Protonix -] 40 mg PO DAILY #30 tablet.ec 01/23/19 Ranitidine [Zantac -] 150 mg PO BID #30 tablet MDD 2 tab 01/23/19 OBJECTIVE: VS, labs, imaging reviewed NAD, AAO, resting comfortably in bed NC AT EOMI PERRLA Lungs CTAB, w/ sym exp Mild tachy to RRR s1/2 no mgr Tender upper abdomen; ND +BS CN2-12 wnl, no fnd Normal mood, appropriate behavior CT abdomen and pelvis preliminary report shows mild gastric antritis without evidence of acue bleeding; radiology felt that the adjacent mesenteric adenopathy may be chronic and reactive. Echo shows normal LVEF with nrmal RV. Mild MR, mild TR ASSESSMENT AND PLAN: Patient presents for abdominal pain and is found to have mild tachycardia and a low Hb of 4-range. 1) Severe Normocytic Anemia -Transfusing 2 units in ER with 1 on hold; checking iron studies, etc. prior to XF -Followup post XF CBC; keep hb >7 -Negative FOBT; followup with GI. There was concern for previous -Was on Fe as OP; hold until she is tolerating oral 2) Abdominal pain with likely gastritis, s/p Paulie patch repair or perforated pyloric channel ulcer -CT prelim result reviewed; followup final report -Consulting Dr. Sanchez given her history and intractable abdominal pain; he has seen her previously for this. -Placing her on IV BID protonix and PRN MSO4 for pain -Avoid NSAIDs, etc. -NPO until she can tolerate -She states that as OP GI told her she would require sgy; should discuss this with her GI and if needed could involve Dr. Robin 3) Hx MR/TR -Reviewed echo Full Code
--- NOTE | 2019-03-12 04:36 | HP ---
CHIEF COMPLAINT: abdominal pain PCP: Dr. 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 As per pt, she had an EGD done with one of Dr. Sanchez's colleagues approx a month ago, and was told that she had gastric ulcers which "required surgery and looked like cancer." For this reason, the pt decided to come to the hospital for evaluation. In addition, she endorses multiple episodes of NBNB emesis over the last few days. No syncope or feeling of lightheadedness. Without melena, hemetemesis. Endorses generalized BAILON, chills. Otherwise no SOB, chest pain or pressure, or changes in urinary or bowel function. No recent NSAID use or alcohol. ER course was notable for: (1) H/H 4.1/13.6 (2) IV tylenol (3) Recent Travel: denies PAST MEDICAL HISTORY: as above PAST SURGICAL HISTORY: as above Social History: lives at home Smokin/2 ppd x 10 yrs Alcohol: denies Drugs: denies Family History: mother - cardiac problems with hx stent, father- HTN, Alzheimer' s Allergies No Known Drug Allergies Allergy (Verified 03/11/19 23:12) HOME MEDICATIONS: Home Medications Medication Instructions Recorded Ferrous Sulfate [Feosol] 325 mg PO TID 01/21/19 Folic Acid - 1 mg PO DAILY 01/21/19 Polyethylene Glycol 3350 [Miralax 17 gm PO DAILY 01/21/19 (For Daily Use) -] Metronidazole 250 mg PO TID 01/23/19 Pantoprazole Sodium [Protonix -] 40 mg PO DAILY #30 tablet.ec 01/23/19 Ranitidine [Zantac -] 150 mg PO BID #30 tablet MDD 2 tab 01/23/19 meds have to be reconciled pt states that she is taking a "liquid medication" and protonix. does not remember name REVIEW OF SYSTEMS CONSTITUTIONAL: Absent: fever, chills, diaphoresis, generalized weakness, malaise, loss of appetite, weight change HEENT: Absent: rhinorrhea, nasal congestion, throat pain, throat swelling, difficulty swallowing, mouth swelling, ear pain, eye pain, visual changes CARDIOVASCULAR: Absent: chest pain, syncope, palpitations, irregular heart rate, lightheadedness , peripheral edema RESPIRATORY: Absent: cough, shortness of breath, dyspnea with exertion, orthopnea, wheezing, stridor, hemoptysis GASTROINTESTINAL: +abdom pain, nausea, vomiting Absent: abdominal pain, abdominal distension, nausea, vomiting, diarrhea, constipation, melena, hematochezia GENITOURINARY: Absent: dysuria, frequency, urgency, hesitancy, hematuria, flank pain, genital pain MUSCULOSKELETAL: Absent: myalgia, arthralgia, joint swelling, back pain, neck pain SKIN: Absent: rash, itching, pallor HEMATOLOGIC/IMMUNOLOGIC: Absent: easy bleeding, easy bruising, lymphadenopathy, frequent infections ENDOCRINE: Absent: unexplained weight gain, unexplained weight loss, heat intolerance, cold intolerance NEUROLOGIC: Absent: headache, focal weakness or paresthesias, dizziness, unsteady gait, seizure, mental status changes, bladder or bowel incontinence PSYCHIATRIC: Absent: anxiety, depression, suicidal or homicidal ideation, hallucinations. PHYSICAL EXAMINATION Vital Signs - 24 hr 03/11/19 23:08 Temperature 98.6 F Pulse Rate 100 H Respiratory 18 Rate Blood Pressure 129/80 O2 Sat by Pulse 100 Oximetry (%) GENERAL: Awake, alert, and fully oriented, in no acute distress. HEAD: Normal with no signs of trauma. EYES: Pupils equal, round and reactive to light, extraocular movements intact, sclera anicteric, conjunctiva clear. EARS, NOSE, THROAT: Ears normal, nares patent, oropharynx clear without exudates. Dry mucous membranes. NECK: Normal range of motion, supple LUNGS: Breath sounds equal, clear to auscultation bilaterally. No wheezes, and no crackles. No accessory muscle use. HEART: Regular rate and rhythm, normal S1 and S2 without murmur, rub or gallop. ABDOMEN: Soft, +diffusely TTP. keren in epigastrium. no guarding or rigidity. LOWER EXTREMITIES: 2+ pt pulses, warm, well-perfused. No calf tenderness. No peripheral edema. NEUROLOGICAL: Cranial nerves II-XII intact. Laboratory Tests 03/12/19 03/12/19 03/12/19 01:34 01:34 01:34 WBC 8.6 Hgb 4.1 L* Hct 13.6 L Plt Count 373 D Sodium 140 Potassium 3.3 L BUN 5 L Creatinine 0.5 L Albumin 3.2 L Lipase 59 L Serum , Qual Negative CTAP: prelim read: mild gastric antritis without evidence of acute bleeding. adjacent mesenteric adenopathy may be chronic or reactive. 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 #Acute blood loss anemia possibly 2/2 PUD -H/H 4.1/13.6. FOBT -. without evidence of bleeding on prelim CTAP -c/w protonix 40mg IVP BID -NPO for bowel rest -serial H/H after transfusion. watch for adequate rise, threshold Hb<7 -f/u iron studies, folate, b12. drawn prior to blood. will give 2U PRBCs and assess -GI consult: Dr. Sanchez. recently underwent EGD, f/u result -may require sx to remove inciting cause #hypokalemia -repleted w/20meq Kdur -cont to follow level #F/E/N no IVF at this time; with hx CHF continue to follow lytes npo bowel rest #ppx scd's as with bleeding #dispo med-surg obs Visit type - Emergency Visit Emergency Visit: Yes ED Registration Date: 03/12/19 Care time: The patient presented to the Emergency Department on the above date and was hospitalized for further evaluation of their emergent condition. - New Patient This patient is new to me today: Yes Date on this admission: 03/12/19 - Critical Care Critical Care patient: No
[2019-03-12] MEDS ORDERED: morphine SULFATE 4 MG/ML VIAL IVPUSH PRN (04:40)
[2019-03-12 04:46] LABS: URINE APPEARANCE CLEAR; URINE BILIRUBIN NEGATIVE (NEGATIVE); URINE COLOR YELLOW; URINE GLUCOSE (UA) NEGATIVE (NEGATIVE); URINE KETONE 40 mg/dl (NEGATIVE)
[2019-03-12 04:47] LABS: PH,URINE 8.5 (5.0-8.0); URINE PROTEIN NEGATIVE (NEGATIVE)
[2019-03-12 04:48] LABS: URINE LEUK ESTERASE TRACE (NEGATIVE); URINE NITRITE NEGATIVE (NEGATIVE)
--- NOTE | 2019-03-12 08:10 | CON.GI ---
Consult Consult Specialty:: GI Referred by:: Dr. 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 Patient presented to ER with complaints of abdominal pain with NBNB vomiting and weakness for 1 month. Patient states the abdominal pain is located to epigastric area and B/L upper quadrants and has been worsening over the past few days. She complains of constipation and bloating but is poorly compliant to medication She says in 1 month she has lost 10lbs. She is known to my office and had EGD done on 01/2019 which showed 5cm hiatal hernia, mulitple erosions in the body and antrum of the stomach and the fundus, large non-bleeding ulcer in the bulb of the duodenum. Patient followed up in my office after EGD and was instructed to have bloodwork and CT Enterography done. In ER labs show Hg 4.1 and stool OB negative. Patient is to receive 2U PRBC transfusion with first unit currently transfusing. - History Source History Provided By: Patient Limitations to Obtaining History: No Limitations - Past Medical History Cardio/Vascular: Yes: HTN Gastrointestinal: Yes: Peptic Ulcer Disease ...LMP: 12/02/18 Heme/Onc: Yes: Anemia Psych: Yes: Depression Additional Medical History: Anemia. Depression not on meds - Alcohol/Substance Use Hx Alcohol Use: No History of Substance Use: reports: None - Smoking History Smoking history: Current every day smoker Have you smoked in the past 12 months: Yes Aproximately how many cigarettes per day: 10 - Social History Usual Living Arrangement: With Significant Other ADL: Independent History of Recent Travel: No Home Medications - Allergies Allergies/Adverse Reactions: Allergies Allergy/AdvReac Type Severity Reaction Status Date / Time No Known Drug Allergies Allergy Verified 03/11/19 23:12 - Home Medications Home Medications: Ambulatory Orders Folic Acid - 1 mg PO DAILY 01/21/19 Pantoprazole Sodium [Protonix -] 40 mg PO DAILY #30 tablet.ec 01/23/19 Sucralfate Oral Suspension [Carafate Oral Suspension -] 1 g BID 03/12/19 Family Disease History - Family Disease History Family Disease History: CA: Grandparent (maternal grandfather-Colon CA), Other: Mother (anemia) Review of Systems - Review of Systems Constitutional: reports: Unintentional Wgt. Loss, Weakness Eyes: reports: No Symptoms HENT: reports: Difficult Swallowing Neck: reports: No Symptoms Cardiovascular: reports: Shortness of Breath Respiratory: reports: SOB Gastrointestinal: reports: Abdominal Pain, Nausea, Vomiting Genitourinary: reports: No Symptoms Breasts: reports: No Symptoms Reported Musculoskeletal: reports: No Symptoms Integumentary: reports: No Symptoms Neurological: reports: No Symptoms Endocrine: reports: No Symptoms Hematology/Lymphatic: reports: No Symptoms Psychiatric: reports: No Symptoms Physical Exam-GI Vital Signs: Vital Signs Temperature 98.4 F 03/12/19 05:05 Pulse Rate 102 H 03/12/19 05:05 Respiratory Rate 16 03/12/19 05:05 Blood Pressure 138/86 03/12/19 05:05 O2 Sat by Pulse Oximetry (%) 98 03/12/19 05:05 Constitutional: Yes: No Distress, Calm Eyes: Yes: Conjunctiva Clear HENT: Yes: Atraumatic Cardiovascular: Yes: Tachycardia Respiratory: Yes: Regular, CTA Bilaterally Gastrointestinal Inspection: Yes: WNL, Scars ...Auscultate: Yes: Normoactive Bowel Sounds. No: Hyperactive Bowel Sounds, Hypoactive Bowel Sounds, No Bowel Sounds, Other ...Palpate: No: Firm/Rigid, Guarding, Hepatomegaly, Mass, Pulsatile Mass, Soft, Splenomegaly, Tenderness, Epigastium, Tenderness, Rebound, Other ...Percussion: Yes: Tympanitic. No: Dullness, Fluid Wave, Other Neurological: Yes: Alert, Oriented Psychiatric: Yes: Alert, Oriented Labs: CBC, BMP 03/12/19 01:34 03/12/19 01:34 INR, PTT INR 1.26 (0.83-1.09) H 03/12/19 01:34 Active Medications Generic Name Dose Route Start Last Admin Trade Name Freq PRN Reason Stop Dose Admin Morphine Sulfate 2 mg 03/12/19 04:40 Morphine Sulfate IVPUSH Q6H PRN PAIN LEVEL 7 - 10 Pantoprazole Sodium 40 mg 03/12/19 14:00 Protonix Iv IVPUSH BIDLASIX [facility] - Results Cat Scan: Pending Problem List - Problems (1) Anemia Assessment/Plan: >gastrin level >current Hg 4.1, scheduled to receive 2U PRBC transfusion >transfuse if Hg <7.0 to avoid fluid overload >stool OB neg Code(s): D64.9 - ANEMIA, UNSPECIFIED (2) Abdominal pain Assessment/Plan: >pending official result of Abd/Pelvic CT scan >pain management >Protonix 40mg IV BID cat scan reviewed this afternoon, no evidence perforation, no evidence of enlarged LN Code(s): R10.9 - UNSPECIFIED ABDOMINAL PAIN Qualifiers: Abdominal location: generalized Qualified Code(s): R10.84 - Generalized abdominal pain (3) Unintentional weight loss Assessment/Plan: >AFP, CEA, CA 19-9, CA 125 Code(s): R63.4 - ABNORMAL WEIGHT LOSS (4) Duodenal ulcer Assessment/Plan: non-healing R> Protonix 40mg bid gastrin level surgical consultation Code(s): K26.9 - DUODENAL ULCER, UNSP ACUTE OR CHRONIC, W/O HEMOR OR PERF
[2019-03-12] MEDS ORDERED: PT OWN MED DRAWER 7, Y5N ONE ×4 (09:45→22:38)
--- NOTE | 2019-03-12 10:27 | EKG ---
Test Reason : Blood Pressure : / mmHG Vent. Rate : 102 BPM Atrial Rate : 102 BPM P-R Int : 134 ms QRS Dur : 072 ms QT Int : 390 ms P-R-T Axes : 044 016 033 degrees QTc Int : 508 ms POOR DATA QUALITY, INTERPRETATION MAY BE ADVERSELY AFFECTED SINUS TACHYCARDIA MINIMAL VOLTAGE CRITERIA FOR LVH, MAY BE NORMAL VARIANT BORDERLINE ECG WHEN COMPARED WITH ECG OF 08-DEC-2018 22:18, NO SIGNIFICANT CHANGE WAS FOUND Confirmed by TERESE GONZALES, JAY ([id number]) on 03/12/2019 10:27:22 AM Referred By: Confirmed By:JAY GUDINO MD
[2019-03-12 13:05] LABS: BASO % 1.3 % (0-2.0); EOS % 1.9 % (0-4.5); HEMATOCRIT 17.6 % (32.4-45.2); LYMPH % 16.4 % (8-40); MCH 25.6 pg (25.7-33.7); MCHC 31.5 g/dl (32.0-36.0); MEAN CELL VOLUME 81.2 fl (80-96); MEAN PLT VOLUME 9.1 fl (7.5-11.1); MONO % 6.6 % (3.8-10.2); NEUT % 73.8 % (42.8-82.8); PLATELET COUNT 342 K/MM3 (134-434); RBC 2.17 M/mm3 (3.60-5.2); RDW 20.8 % (11.6-15.6)
[2019-03-12 13:20] LABS: HEMOGLOBIN 5.6 GM/dL (10.7-15.3)
[2019-03-12 13:41] LABS: ANION GAP 11 MMOL/L (8-16); BLOOD UREA NITROGEN 4 mg/dL (7-18); CALCIUM 8.3 mg/dL (8.5-10.1); CHLORIDE 104 mmol/L (98-107); CO2 21 mmol/L (21-32); CREATININE 0.3 mg/dL (0.55-1.3); GLUCOSE,RANDOM 65 mg/dL (74-106); POTASSIUM 3.6 mmol/L (3.5-5.1); SODIUM 136 mmol/L (136-145)
[2019-03-12] MEDS ORDERED: PANTOPRAZOLE SODIUM 40 MG VIAL IVPUSH SCH ×2 (14:00→22:00)
--- NOTE | 2019-03-12 14:52 | PN ---
Physical Exam: SUBJECTIVE: Patient seen and examined. Pt. endorses pain in the epigastrium. Pt. states she took something overnight @ 4 am and the pain was worse. Pt. states she noticed blood in the her stool(moderate amount) 2 days ago, denies noticing blood or dark stool before or after. Denies the known presence of hemorrhoids. Pt. endorses headache that is different from her migraines that she has. Pt. denies fever and chills. Pt. endorses nausea and NBNB emesis. OBJECTIVE: Vital Signs Period Temp Pulse Resp BP Sys/Suárez Pulse Ox Last 24 Hr 98.0 F-98.6 F 94-102 16-18 129-151/80-90 98-100 GENERAL: The patient is awake, alert, and fully oriented, in no acute distress. EYES: extraocular movements intact, sclera anicteric, conjunctiva clear. No ptosis. ENT: Ears normal, nares patent, oropharynx clear without exudates, moist mucous membranes NECK: Trachea midline, full range of motion, supple. LUNGS: Breath sounds equal, clear to auscultation bilaterally, no wheezes, no crackles, no accessory muscle use. HEART: Regular rate and rhythm, S1, S2 without murmur ABDOMEN: Soft, tenderness to palpation in epigastrium, RUQ and LUQ, nondistended , normoactive bowel sounds, guarding EXTREMITIES: 1+ radial pulses, warm, well-perfused, no calf tenderness, 2 sec. cap refill, no edema. NEUROLOGICAL: Normal speech, gait not observed. PSYCH: Normal mood, normal affect. SKIN: Warm, dry, normal turgor, no rashes or lesions noted, decreased skin pallor Laboratory Results - last 24 hr 03/12/19 03/12/19 03/12/19 01:29 01:34 01:34 WBC 8.6 RBC 1.66 L Hgb 4.1 L* Hct 13.6 L MCV 82.2 MCH 24.5 L MCHC 29.8 L RDW 23.2 H Plt Count 373 D MPV 8.9 D Absolute Neuts (auto) 5.9 Neutrophils % 68.2 Lymphocytes % 21.0 Monocytes % 6.2 Eosinophils % 2.1 D Basophils % 2.5 H D Nucleated RBC % 1 H Hypochromia 3+ Platelet Estimate Increased Platelet Comment No clumping noted Polychromasia 2+ Basophilic Stippling 1+ Anisocytosis 1+ Microcytosis 1+ Target Cells 1+ ESR Retic Count PT with INR INR Sodium 140 Potassium 3.3 L Chloride 104 Carbon Dioxide 22 Anion Gap 13 BUN 5 L Creatinine 0.5 L Creat Clearance w eGFR 143.91 Random Glucose 72 L Calcium 9.2 Magnesium 2.3 Ferritin Total Bilirubin 0.3 AST 16 ALT 11 L Alkaline Phosphatase 103 C-Reactive Protein Total Protein 7.3 Albumin 3.2 L Lipase 59 L Vitamin B12 Serum Folate Serum , Qual Urine Color Yellow Urine Appearance Clear Urine pH 8.5 H Ur Specific Napoleon 1.012 Urine Protein Negative Urine Glucose (UA) Negative Urine Ketones 40 mg/dl Urine Blood Negative Urine Nitrite Negative Urine Bilirubin Negative Urine Urobilinogen 1.0 Ur Leukocyte Esterase Trace Stool Occult Blood Blood Type Antibody Screen Antibody Identification Antigen Identification Crossmatch 03/12/19 03/12/19 03/12/19 01:34 01:34 01:34 WBC RBC Hgb Hct MCV MCH MCHC RDW Plt Count MPV Absolute Neuts (auto) Neutrophils % Lymphocytes % Monocytes % Eosinophils % Basophils % Nucleated RBC % Hypochromia Platelet Estimate Platelet Comment Polychromasia Basophilic Stippling Anisocytosis Microcytosis Target Cells ESR Retic Count PT with INR 14.90 H INR 1.26 H Sodium Potassium Chloride Carbon Dioxide Anion Gap BUN Creatinine Creat Clearance w eGFR Random Glucose Calcium Magnesium Ferritin Total Bilirubin AST ALT Alkaline Phosphatase C-Reactive Protein Total Protein Albumin Lipase Vitamin B12 Serum Folate Serum , Qual Negative Urine Color Urine Appearance Urine pH Ur Specific Napoleon Urine Protein Urine Glucose (UA) Urine Ketones Urine Blood Urine Nitrite Urine Bilirubin Urine Urobilinogen Ur Leukocyte Esterase Stool Occult Blood Blood Type O POSITIVE Antibody Screen Positive Antibody Identification Anti- k Antigen Identification K Antigen - NEGATIVE Crossmatch See Detail 03/12/19 03/12/19 03/12/19 03:04 04:44 04:44 WBC RBC Hgb Hct MCV MCH MCHC RDW Plt Count MPV Absolute Neuts (auto) Neutrophils % Lymphocytes % Monocytes % Eosinophils % Basophils % Nucleated RBC % Hypochromia Platelet Estimate Platelet Comment Polychromasia Basophilic Stippling Anisocytosis Microcytosis Target Cells ESR Retic Count 1.98 H D PT with INR INR Sodium Potassium Chloride Carbon Dioxide Anion Gap BUN Creatinine Creat Clearance w eGFR Random Glucose Calcium Magnesium Ferritin 10.5 Total Bilirubin AST ALT Alkaline Phosphatase C-Reactive Protein Total Protein Albumin Lipase Vitamin B12 Serum Folate Serum , Qual Urine Color Urine Appearance Urine pH Ur Specific Napoleon Urine Protein Urine Glucose (UA) Urine Ketones Urine Blood Urine Nitrite Urine Bilirubin Urine Urobilinogen Ur Leukocyte Esterase Stool Occult Blood Negative Blood Type Antibody Screen Antibody Identification Antigen Identification Crossmatch 03/12/19 03/12/19 03/12/19 12:00 12:00 12:00 WBC 7.0 RBC 2.17 L Hgb 5.6 L* Hct 17.6 L D MCV 81.2 MCH 25.6 L MCHC 31.5 L RDW 20.8 H Plt Count 342 MPV 9.1 Absolute Neuts (auto) 5.1 Neutrophils % 73.8 Lymphocytes % 16.4 D Monocytes % 6.6 Eosinophils % 1.9 Basophils % 1.3 Nucleated RBC % 0 Hypochromia Platelet Estimate Platelet Comment Polychromasia Basophilic Stippling Anisocytosis Microcytosis Target Cells ESR 101 H Retic Count PT with INR INR Sodium 136 Potassium 3.6 Chloride 104 Carbon Dioxide 21 Anion Gap 11 BUN 4 L Creatinine 0.3 L Creat Clearance w eGFR 259.48 Random Glucose 65 L Calcium 8.3 L Magnesium Ferritin Total Bilirubin AST ALT Alkaline Phosphatase C-Reactive Protein 0.5 H Total Protein Albumin Lipase Vitamin B12 1428 H Serum Folate 15 Serum , Qual Urine Color Urine Appearance Urine pH Ur Specific Napoleon Urine Protein Urine Glucose (UA) Urine Ketones Urine Blood Urine Nitrite Urine Bilirubin Urine Urobilinogen Ur Leukocyte Esterase Stool Occult Blood Blood Type Antibody Screen Antibody Identification Antigen Identification Crossmatch Active Medications Home Medications Medication Instructions Recorded Folic Acid - 1 mg PO DAILY 01/21/19 Pantoprazole Sodium [Protonix -] 40 mg PO DAILY #30 tablet.ec 01/23/19 Sucralfate Oral Suspension 1 g BID 03/12/19 [Carafate Oral Suspension -] Current Medications Morphine Sulfate (Morphine Sulfate) 2 mg IVPUSH Q6H PRN PRN Reason: PAIN LEVEL 7 - 10 Pantoprazole Sodium (Protonix Iv) 40 mg IVPUSH BIDLASIX [facility] Last Admin: 03/12/19 14:17 Dose: 40 mg ASSESSMENT/PLAN: 33 y.o. 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 #Acute blood loss anemia possibly 2/2 PUD H/H 4.1/13.6-->5.6/17.7, c/w trend FOBT- No evidence of bleeding on CTAP, however showed b/l ovarian cysts, prominent endometrium and free pelvic fluid, will f/u transvaginal US c/w protonix 40mg IVP BID NPO for bowel rest threshold Hb<7 will give 2 units pRBCs and f/u CBC GI consult: Dr. Sanchez. recently underwent EGD in 01/2019 w/ Paulie Patch placement: (5cm hiatal hernia, multiple erosions in the body, antrum and fundus ; large bleeding ulcer in bulb of duodenum); Will need Diagnostic/possibly Therapeutic EGD and Colonoscopy Surgery consult appreciated. f/u CEA, CA-19-9, CA-125, [employer] for Hx. of 10lb. weight loss in the last month. started Rifaximin started Miralax f/u Gastrin level #Nausea started Reglan #Diastolic CHF-stable (11/2018)EF: 65-70%, mild TR and MR will assess for volume overload after transfusion not currently overloaded now. #F/E/N no IVF at this time; with hx CHF continue to follow lytes npo bowel rest #DVT Ppx. SCDs #Dispo med-surg obs Visit type - Emergency Visit Emergency Visit: Yes ED Registration Date: 03/12/19 Care time: The patient presented to the Emergency Department on the above date and was hospitalized for further evaluation of their emergent condition. - New Patient This patient is new to me today: Yes Date on this admission: 03/12/19 - Critical Care Critical Care patient: No - Discharge Referral Referred to [facility] Med P.C.: No
[2019-03-12] MEDS ORDERED: traMADol HCL 50 MG TABLET PO ONE (16:55)
--- NOTE | 2019-03-12 17:33 | PN ---
Teaching Attending Note Name of Resident: Miguel Yadav ATTENDING PHYSICIAN STATEMENT I saw and evaluated the patient. I reviewed the resident's note and discussed the case with the resident. I agree with the resident's findings and plan as documented. SUBJECTIVE: Complains of abdominal pain. No further nausea/vomiting. No diarrhea. Episode of BRBPR 2 days ago - resolved. No chest pain/palpitations/SOB /lightheadedness. OBJECTIVE: Afebrile, Hemodynamically Stable. Last Vital Signs Temp Pulse Resp BP Pulse Ox 98.4 F 97 H 20 143/88 98 03/12/19 16:58 03/12/19 16:58 03/12/19 16:58 03/12/19 16:58 03/12/19 05:05 HEENT - Atraumatic, Normocephalic. Heart - S1, S2, SM Lungs - clear to auscultation Abdomen - tender epigastrum ++ Extremities - no edema, no calf tenderness. Laboratory Results - last 24 hr 03/12/19 03/12/19 03/12/19 01:29 01:34 01:34 WBC 8.6 RBC 1.66 L Hgb 4.1 L* Hct 13.6 L MCV 82.2 MCH 24.5 L MCHC 29.8 L RDW 23.2 H Plt Count 373 D MPV 8.9 D Absolute Neuts (auto) 5.9 Neutrophils % 68.2 Lymphocytes % 21.0 Monocytes % 6.2 Eosinophils % 2.1 D Basophils % 2.5 H D Nucleated RBC % 1 H Hypochromia 3+ Platelet Estimate Increased Platelet Comment No clumping noted Polychromasia 2+ Basophilic Stippling 1+ Anisocytosis 1+ Microcytosis 1+ Target Cells 1+ ESR Retic Count PT with INR INR Sodium 140 Potassium 3.3 L Chloride 104 Carbon Dioxide 22 Anion Gap 13 BUN 5 L Creatinine 0.5 L Creat Clearance w eGFR 143.91 Random Glucose 72 L Calcium 9.2 Magnesium 2.3 Ferritin Total Bilirubin 0.3 AST 16 ALT 11 L Alkaline Phosphatase 103 C-Reactive Protein Total Protein 7.3 Albumin 3.2 L Lipase 59 L Vitamin B12 Serum Folate Serum , Qual Urine Color Yellow Urine Appearance Clear Urine pH 8.5 H Ur Specific [place] 1.012 Urine Protein Negative Urine Glucose (UA) Negative Urine Ketones 40 mg/dl Urine Blood Negative Urine Nitrite Negative Urine Bilirubin Negative Urine Urobilinogen 1.0 Ur Leukocyte Esterase Trace Stool Occult Blood Blood Type Antibody Screen Antibody Identification Antigen Identification Crossmatch 03/12/19 03/12/19 03/12/19 01:34 01:34 01:34 WBC RBC Hgb Hct MCV MCH MCHC RDW Plt Count MPV Absolute Neuts (auto) Neutrophils % Lymphocytes % Monocytes % Eosinophils % Basophils % Nucleated RBC % Hypochromia Platelet Estimate Platelet Comment Polychromasia Basophilic Stippling Anisocytosis Microcytosis Target Cells ESR Retic Count PT with INR 14.90 H INR 1.26 H Sodium Potassium Chloride Carbon Dioxide Anion Gap BUN Creatinine Creat Clearance w eGFR Random Glucose Calcium Magnesium Ferritin Total Bilirubin AST ALT Alkaline Phosphatase C-Reactive Protein Total Protein Albumin Lipase Vitamin B12 Serum Folate Serum , Qual Negative Urine Color Urine Appearance Urine pH Ur Specific [place] Urine Protein Urine Glucose (UA) Urine Ketones Urine Blood Urine Nitrite Urine Bilirubin Urine Urobilinogen Ur Leukocyte Esterase Stool Occult Blood Blood Type O POSITIVE Antibody Screen Positive Antibody Identification Anti- k Antigen Identification K Antigen - NEGATIVE Crossmatch See Detail 03/12/19 03/12/19 03/12/19 03:04 04:44 04:44 WBC RBC Hgb Hct MCV MCH MCHC RDW Plt Count MPV Absolute Neuts (auto) Neutrophils % Lymphocytes % Monocytes % Eosinophils % Basophils % Nucleated RBC % Hypochromia Platelet Estimate Platelet Comment Polychromasia Basophilic Stippling Anisocytosis Microcytosis Target Cells ESR Retic Count 1.98 H D PT with INR INR Sodium Potassium Chloride Carbon Dioxide Anion Gap BUN Creatinine Creat Clearance w eGFR Random Glucose Calcium Magnesium Ferritin 10.5 Total Bilirubin AST ALT Alkaline Phosphatase C-Reactive Protein Total Protein Albumin Lipase Vitamin B12 Serum Folate Serum , Qual Urine Color Urine Appearance Urine pH Ur Specific [place] Urine Protein Urine Glucose (UA) Urine Ketones Urine Blood Urine Nitrite Urine Bilirubin Urine Urobilinogen Ur Leukocyte Esterase Stool Occult Blood Negative Blood Type Antibody Screen Antibody Identification Antigen Identification Crossmatch 03/12/19 03/12/19 03/12/19 12:00 12:00 12:00 WBC 7.0 RBC 2.17 L Hgb 5.6 L* Hct 17.6 L D MCV 81.2 MCH 25.6 L MCHC 31.5 L RDW 20.8 H Plt Count 342 MPV 9.1 Absolute Neuts (auto) 5.1 Neutrophils % 73.8 Lymphocytes % 16.4 D Monocytes % 6.6 Eosinophils % 1.9 Basophils % 1.3 Nucleated RBC % 0 Hypochromia Platelet Estimate Platelet Comment Polychromasia Basophilic Stippling Anisocytosis Microcytosis Target Cells ESR 101 H Retic Count PT with INR INR Sodium 136 Potassium 3.6 Chloride 104 Carbon Dioxide 21 Anion Gap 11 BUN 4 L Creatinine 0.3 L Creat Clearance w eGFR 259.48 Random Glucose 65 L Calcium 8.3 L Magnesium Ferritin Total Bilirubin AST ALT Alkaline Phosphatase C-Reactive Protein 0.5 H Total Protein Albumin Lipase Vitamin B12 1428 H Serum Folate 15 Serum , Qual Urine Color Urine Appearance Urine pH Ur Specific [place] Urine Protein Urine Glucose (UA) Urine Ketones Urine Blood Urine Nitrite Urine Bilirubin Urine Urobilinogen Ur Leukocyte Esterase Stool Occult Blood Blood Type Antibody Screen Antibody Identification Antigen Identification Crossmatch Current Medications Generic Name Dose Route Start Last Admin Trade Name Freq PRN Reason Stop Dose Admin Morphine Sulfate 2 mg 03/12/19 04:40 Morphine Sulfate IVPUSH Q6H PRN PAIN LEVEL 7 - 10 Pantoprazole Sodium 40 mg 03/12/19 14:00 03/12/19 14:17 Protonix Iv IVPUSH 40 mg BIDLASIX EMILY Administration ASSESSMENT AND PLAN: 33 year old female with PUD s/p repair of 2017, persistent pyloric channel ulcer s/p Paulie patch 02/02 s/p cauterization, 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 s/p EGD 02/04 - 5cm hiatal hernia, multiple erosions in body and antrum of the stomach, large non-bleeding ulcer in bulb of duodenum 1. Acute Blood Loss Anemia secondary to GI Blood Loss Hx of PUD s/p repair, Paulie patch H/H 4.1/3.6 For transfusion 2 units PRBCs with repeat CBC GI and Surgery consulted. Will likely require EGD +/- Colonoscopy NPO, IV fluids, IV Protonix. Hemodynamically Stable. 2. Abdominal Pain likely sec to PUD CT A/P - findings consistent with focal gastritis PPI IV GI consult for EGD 3. Ovarian Cysts with free fluid in Pelvis - for Pelvic US. Denies PV blood loss. 4. Hypokalemia - repleted.
[2019-03-12] MEDS ORDERED: METOCLOPRAMIDE HCL 10 MG TABLET (FP) PO SCH (18:00)
[2019-03-12] MEDS: METOCLOPRAMIDE HCL 10 MG TABLET (FP) PO SCH (20:24)
[2019-03-12] MEDS: PANTOPRAZOLE 40 MG TABLET (FP) PO SCH (21:25)
[2019-03-12] MEDS: RIFAXIMIN 550 MG TABLET (UD) PO SCH (21:26)
[2019-03-12] MEDS: POLYETHYLENE GLYCOL 3350 119 GM BTL PO SCH (21:28)
[2019-03-12 22:16] LABS: HEMATOCRIT 22.5 % (32.4-45.2); HEMOGLOBIN 7.3 GM/dL (10.7-15.3); MCH 26.5 pg (25.7-33.7); MCHC 32.5 g/dl (32.0-36.0); MEAN CELL VOLUME 81.4 fl (80-96); MEAN PLT VOLUME 8.9 fl (7.5-11.1); PLATELET COUNT 373 K/MM3 (134-434); RBC 2.77 M/mm3 (3.60-5.2); RDW 19.6 % (11.6-15.6); WHITE BLOOD COUNT 8.6 K/mm3 (4.0-10.0)
[2019-03-12] MEDS ORDERED: diphenhydrAMINE HCL 25 MG CAPSULE (FP) PO ONE (23:44)
[2019-03-13 04:14] LABS: SERUM IRON SATURATION 25 % (15-55); TOTAL IRON BINDING CAPACITY 400 ug/dL (250-450); UIBC 301 ug/dL (131-425)
[2019-03-13] MEDS ORDERED: ACETAMINOPHEN 325 MG TABLET (FP) PO ONE (06:04)
[2019-03-13] MEDS: RIFAXIMIN 550 MG TABLET (UD) PO SCH ×2 (06:16→14:57)
[2019-03-13] MEDS: METOCLOPRAMIDE HCL 10 MG TABLET (FP) PO SCH ×3 (06:16→18:05)
[2019-03-13 07:07] LABS: COCAINE, UR NEGATIVE ng/ml (CUTOFF=300); METHADONE, UR NEGATIVE ng/ml (CUTOFF=300); OPIATES, URI NEGATIVE ng/ml (CUTOFF=300); PHENCYCLIDINE,URINE NEGATIVE ng/ml (CUTOFF=25); URINE AMPHETAMINES NEGATIVE ng/ml (CUTOFF=500); URINE BARBITURATES NEGATIVE ng/ml (CUTOFF=200); URINE BENZODIAZEPINES NEGATIVE ng/ml (CUTOFF=200)
[2019-03-13 07:17] LABS: HEMATOCRIT 27.1 % (32.4-45.2); MCH 25.8 pg (25.7-33.7); MCHC 33.3 g/dl (32.0-36.0); MEAN CELL VOLUME 77.5 fl (80-96); MEAN PLT VOLUME 8.4 fl (7.5-11.1); PLATELET COUNT 409 K/MM3 (134-434); RBC 3.49 M/mm3 (3.60-5.2); RDW 20.2 % (11.6-15.6); WHITE BLOOD COUNT 9.9 K/mm3 (4.0-10.0)
[2019-03-13 07:34] LABS: ALK PHOS 105 U/L (45-117); ANION GAP 8 MMOL/L (8-16); BILIRUBIN,TOTAL 1.2 mg/dL (0.2-1); BLOOD UREA NITROGEN 4 mg/dL (7-18); CALCIUM 8.7 mg/dL (8.5-10.1); CHLORIDE 104 mmol/L (98-107); CO2 23 mmol/L (21-32); CREATININE 0.4 mg/dL (0.55-1.3); GLUCOSE,RANDOM 72 mg/dL (74-106); POTASSIUM 3.5 mmol/L (3.5-5.1); SGOT/AST 18 U/L (15-37); SGPT/ALT 12 U/L (13-61); SODIUM 135 mmol/L (136-145); TOT PROT 7.3 g/dl (6.4-8.2)
[2019-03-13] MEDS ORDERED: traMADol HCL 50 MG TABLET PO ONE (07:35)
--- NOTE | 2019-03-13 09:07 | PN ---
Progress Note, Physician History of Present Illness: GI FOLLOW UP NOTE Patient examined and case discussed with Dr. Sanchez Patient states abdominal pain is the same as on admission. She is s/p 3U PRBC transfusion and most recent Hg 9.0. Patient denies nausea, vomiting, rectal bleeding. - Current Medication List Current Medications: Active Medications Metoclopramide HCl (Reglan -) 5 mg PO TIDAC [facility] Last Admin: 03/13/19 06:16 Dose: 5 mg Pantoprazole Sodium (Protonix -) 40 mg PO BID [facility] Last Admin: 03/12/19 21:25 Dose: 40 mg Polyethylene Glycol (Miralax (For Daily Use) -) 17 gm PO BID [facility] Last Admin: 03/12/19 21:28 Dose: 17 gm Rifaximin (Xifaxan -) 550 mg PO TID [facility] Stop: 03/26/19 14:01 Last Admin: 03/13/19 06:16 Dose: 550 mg - Objective Vital Signs: Vital Signs Temperature 98.2 F 03/13/19 06:40 Pulse Rate 92 H 03/13/19 06:40 Respiratory Rate 20 03/13/19 06:40 Blood Pressure 135/87 03/13/19 06:40 O2 Sat by Pulse Oximetry (%) 98 03/12/19 05:05 Constitutional: Yes: No Distress, Calm Eyes: Yes: Conjunctiva Clear HENT: Yes: Atraumatic Cardiovascular: Yes: Regular Rate and Rhythm Respiratory: Yes: Regular, Other (crackles) Gastrointestinal: Yes: Normal Bowel Sounds, Soft, Distention (mild), Tenderness (diffuse) Integumentary: Yes: Other (hyperpigmentation noted to B/L flank and lower abdomen) Neurological: Yes: Alert, Oriented Psychiatric: Yes: Alert, Oriented Labs: CBC, BMP 03/13/19 06:30 03/13/19 06:30 INR, PTT INR 1.26 (0.83-1.09) H 03/12/19 01:34 Problem List - Problems (1) Duodenal ulcer Assessment/Plan: -gastrin level pending -Pantoprazole 40mg BID -pending surgical consult Code(s): K26.9 - DUODENAL ULCER, UNSP ACUTE OR CHRONIC, W/O HEMOR OR PERF (2) Unintentional weight loss Assessment/Plan: -AFP 4.0 -CEA, CA 19-9, CA 125 pending Code(s): R63.4 - ABNORMAL WEIGHT LOSS (3) Abdominal pain Assessment/Plan: -CT scan shows irregularity of gastric antrum possibly representing focal gastritis -pain management -Pantoprazole 40mg BID Code(s): R10.9 - UNSPECIFIED ABDOMINAL PAIN Qualifiers: Abdominal location: generalized Qualified Code(s): R10.84 - Generalized abdominal pain (4) Anemia Assessment/Plan: -current Hg 9.0--s/p 3U PRBC transfusion -monitor Hg daily -transfuse if Hg <7.0 to avoid fluid overload -gastrin level pending Code(s): D64.9 - ANEMIA, UNSPECIFIED
[2019-03-13 09:10] LABS: BILIRUBIN,DIRECT 0.4 mg/dL (0.0-0.2); MAGNESIUM 2.1 mg/dL (1.8-2.4); PHOSPHOROUS 2.8 mg/dL (2.5-4.9)
[2019-03-13] MEDS: POLYETHYLENE GLYCOL 3350 119 GM BTL PO SCH ×2 (10:49→14:56)
[2019-03-13] MEDS: PANTOPRAZOLE 40 MG TABLET (FP) PO SCH (10:53)
--- NOTE | 2019-03-13 11:07 | PN ---
Physical Exam: SUBJECTIVE: Patient seen and examined. Pt. states that she is having a migraine now. She states she did not sleep well last night and is frustrated that "nothing is being done." Pt. states she would like some conclusive intervention or to go porfirio as she does not want ot keep coming back for abdominal pain. Pt. states her last BM was 2 days before hospital admission (BRBPR). Pt. denies any fevers or chills, lightheadedness, numbness/tingling, chest pain or shortness of breath. Pt. endorses no difficulty passing urine and that it was normal quantity and color. OBJECTIVE: Vital Signs Period Temp Pulse Resp BP Sys/Suárez Pulse Ox Last 24 Hr 98.0 F-99.2 F 92-99 18-20 129-151/79-91 GENERAL: The patient is awake, alert, and fully oriented, in no acute distress. EYES: extraocular movements intact, sclera anicteric, conjunctiva clear. No ptosis. ENT: Ears normal, nares patent, oropharynx clear without exudates, moist mucous membranes NECK: Trachea midline, full range of motion, supple. LUNGS: No wheezes, faint bibasilar crackles, no accessory muscle use. HEART: Tachy, regular rhythm, S1, S2 without murmur ABDOMEN: Soft, tenderness to palpation in epigastrium, RUQ and LUQ; LLQ and RLQ mild tenderness new today, nondistended, normoactive bowel sounds, guarding EXTREMITIES: 2+ radial pulses, warm, well-perfused, no calf tenderness, 2 sec. cap refill, no edema. NEUROLOGICAL: Normal speech, gait not observed. PSYCH: Normal mood, normal affect. SKIN: Warm, dry, normal turgor, no rashes or lesions noted, improving pallor on lips. hyperpigmentation pf lower abdomen and flanks seems to be expanding. Laboratory Results - last 24 hr 03/12/19 03/12/19 03/12/19 01:34 12:00 12:00 WBC RBC Hgb Hct MCV MCH MCHC RDW Plt Count MPV Absolute Neuts (auto) Neutrophils % Lymphocytes % Monocytes % Eosinophils % Basophils % Nucleated RBC % ESR 101 H Sodium Potassium Chloride Carbon Dioxide Anion Gap BUN Creatinine Creat Clearance w eGFR Random Glucose Calcium Phosphorus Magnesium Iron 99 TIBC 400 Iron Saturation 25 Total Bilirubin Direct Bilirubin AST ALT Alkaline Phosphatase C-Reactive Protein Total Protein Albumin Tumor Marker AFP Vitamin B12 Serum Folate Opiates Screen Methadone Screen Barbiturate Screen Phencyclidine Screen Ur Amphetamines Screen MDMA (Ecstasy) Screen Benzodiazepines Screen Cocaine Screen U Marijuana (THC) Screen Blood Type O POSITIVE Antibody Screen Positive Antibody Identification Anti- k Antigen Identification K Antigen - NEGATIVE Crossmatch See Detail 03/12/19 03/12/19 03/12/19 12:00 12:00 12:00 WBC 7.0 RBC 2.17 L Hgb 5.6 L* Hct 17.6 L D MCV 81.2 MCH 25.6 L MCHC 31.5 L RDW 20.8 H Plt Count 342 MPV 9.1 Absolute Neuts (auto) 5.1 Neutrophils % 73.8 Lymphocytes % 16.4 D Monocytes % 6.6 Eosinophils % 1.9 Basophils % 1.3 Nucleated RBC % 0 ESR Sodium 136 Potassium 3.6 Chloride 104 Carbon Dioxide 21 Anion Gap 11 BUN 4 L Creatinine 0.3 L Creat Clearance w eGFR 259.48 Random Glucose 65 L Calcium 8.3 L Phosphorus Magnesium Iron TIBC Iron Saturation Total Bilirubin Direct Bilirubin AST ALT Alkaline Phosphatase C-Reactive Protein 0.5 H Total Protein Albumin Tumor Marker AFP 4.0 Vitamin B12 1428 H Serum Folate 15 Opiates Screen Methadone Screen Barbiturate Screen Phencyclidine Screen Ur Amphetamines Screen MDMA (Ecstasy) Screen Benzodiazepines Screen Cocaine Screen U Marijuana (THC) Screen Blood Type Antibody Screen Antibody Identification Antigen Identification Crossmatch 03/12/19 03/13/19 03/13/19 21:45 06:30 06:30 WBC 8.6 9.9 RBC 2.77 L 3.49 L Hgb 7.3 L 9.0 L Hct 22.5 L D 27.1 L D MCV 81.4 77.5 L MCH 26.5 25.8 MCHC 32.5 33.3 RDW 19.6 H 20.2 H Plt Count 373 409 MPV 8.9 8.4 Absolute Neuts (auto) Neutrophils % Lymphocytes % Monocytes % Eosinophils % Basophils % Nucleated RBC % ESR Sodium 135 L Potassium 3.5 Chloride 104 Carbon Dioxide 23 Anion Gap 8 BUN 4 L Creatinine 0.4 L Creat Clearance w eGFR 186.17 Random Glucose 72 L Calcium 8.7 Phosphorus 2.8 Magnesium 2.1 Iron TIBC Iron Saturation Total Bilirubin 1.2 H Direct Bilirubin 0.4 H AST 18 ALT 12 L Alkaline Phosphatase 105 C-Reactive Protein Total Protein 7.3 Albumin 3.0 L Tumor Marker AFP Vitamin B12 Serum Folate Opiates Screen Methadone Screen Barbiturate Screen Phencyclidine Screen Ur Amphetamines Screen MDMA (Ecstasy) Screen Benzodiazepines Screen Cocaine Screen U Marijuana (THC) Screen Blood Type Antibody Screen Antibody Identification Antigen Identification Crossmatch 03/13/19 06:30 WBC RBC Hgb Hct MCV MCH MCHC RDW Plt Count MPV Absolute Neuts (auto) Neutrophils % Lymphocytes % Monocytes % Eosinophils % Basophils % Nucleated RBC % ESR Sodium Potassium Chloride Carbon Dioxide Anion Gap BUN Creatinine Creat Clearance w eGFR Random Glucose Calcium Phosphorus Magnesium Iron TIBC Iron Saturation Total Bilirubin Direct Bilirubin AST ALT Alkaline Phosphatase C-Reactive Protein Total Protein Albumin Tumor Marker AFP Vitamin B12 Serum Folate Opiates Screen Negative Methadone Screen Negative Barbiturate Screen Negative Phencyclidine Screen Negative Ur Amphetamines Screen Negative MDMA (Ecstasy) Screen Negative Benzodiazepines Screen Negative Cocaine Screen Negative U Marijuana (THC) Screen Negative Blood Type Antibody Screen Antibody Identification Antigen Identification Crossmatch Active Medications Home Medications Medication Instructions Recorded Folic Acid - 1 mg PO DAILY 01/21/19 Pantoprazole Sodium [Protonix -] 40 mg PO DAILY #30 tablet.ec 01/23/19 Sucralfate Oral Suspension 1 g BID 03/12/19 [Carafate Oral Suspension -] Current Medications Metoclopramide HCl (Reglan -) 5 mg PO TIDAC [facility] Last Admin: 03/13/19 10:54 Dose: 5 mg Pantoprazole Sodium (Protonix -) 40 mg PO BID [facility] Last Admin: 03/13/19 10:53 Dose: 40 mg Polyethylene Glycol (Miralax (For Daily Use) -) 17 gm PO BID [facility] Last Admin: 03/13/19 10:49 Dose: 17 gm Rifaximin (Xifaxan -) 550 mg PO TID [facility] Stop: 03/26/19 14:01 Last Admin: 03/13/19 06:16 Dose: 550 mg ASSESSMENT/PLAN: 33 y.o. 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 #Acute blood loss anemia possibly 2/2 PUD HgB--> 4.1-->5.6-->7.3-->9.0 FOBT- No evidence of bleeding on CTAP, however showed b/l ovarian cysts, prominent endometrium and free pelvic fluid, transvaginal US: shows no acute pathology. c/w protonix 40mg IVP BID NPO for bowel rest threshold Hb<7 will give 2 units pRBCs and f/u CBC GI consult: Dr. Sanchez. recently underwent EGD in 01/2019 w/ Paulie Patch placement: (5cm hiatal hernia, multiple erosions in the body, antrum and fundus ; large bleeding ulcer in bulb of duodenum); Per GI no intervention at this time. Pt. stable for D/c and follow-up once tolerating diet. Surgery consult appreciated. f/u CEA, CA-19-9, CA-125, AF[employer] for Hx. of 10lb. weight loss in the last month. c/w Rifaximin c/w Miralax f/u Gastrin level TBili: 1.2 with 0.4 Dbili. consistent with reabsorption of blood products from GI tract. #Migraine started Reglan- has not been effective Given Tramadol 100mg for Headache/Migraine but Pt. denies its efficacy will start Sumatriptan 6mg SQ PRN- Pt. endorses that this works. #Diastolic CHF-stable (11/2018)EF: 65-70%, mild TR and MR will assess for volume overload after transfusion not currently overloaded now. #F/E/N no IVF at this time; with hx CHF continue to follow lytes Clears--> advance as tolerated #DVT Ppx. SCDs #Dispo med-surg obs
[2019-03-13] MEDS ORDERED: INSULIN (NOVOLOG) ASPART 100 UNITS/ML 10ML VIAL ONE (11:16)
[2019-03-13] MEDS ORDERED: SUMATRIPTAN SUCCINATE 6 MG/0.5 ML VIAL SQ ONE (14:00)
--- NOTE | 2019-03-13 14:25 | PN ---
Teaching Attending Note Name of Resident: Miguel Yadav ATTENDING PHYSICIAN STATEMENT I saw and evaluated the patient. I reviewed the resident's note and discussed the case with the resident. I agree with the resident's findings and plan as documented. SUBJECTIVE: Complains of abdominal pain. No further nausea/vomiting. No diarrhea. Episode of BRBPR 3 days ago - resolved. No chest pain/palpitations/SOB /lightheadedness. OBJECTIVE: Afebrile, Hemodynamically Stable. Last Vital Signs Temp Pulse Resp BP Pulse Ox 97.3 F L 69 18 121/65 98 03/13/19 10:00 03/13/19 10:00 03/13/19 10:00 03/13/19 10:00 03/12/19 05:05 Heart - S1, S2, SM Lungs - clear to auscultation Abdomen - tender epigastrum ++ Extremities - no edema, no calf tenderness. Laboratory Results - last 24 hr 03/12/19 03/12/19 03/12/19 01:34 12:00 12:00 WBC RBC Hgb Hct MCV MCH MCHC RDW Plt Count MPV Sodium Potassium Chloride Carbon Dioxide Anion Gap BUN Creatinine Creat Clearance w eGFR Random Glucose Calcium Phosphorus Magnesium Iron 99 TIBC 400 Iron Saturation 25 Total Bilirubin Direct Bilirubin AST ALT Alkaline Phosphatase Total Protein Albumin Tumor Marker AFP 4.0 Opiates Screen Methadone Screen Barbiturate Screen Phencyclidine Screen Ur Amphetamines Screen MDMA (Ecstasy) Screen Benzodiazepines Screen Cocaine Screen U Marijuana (THC) Screen Blood Type O POSITIVE Antibody Screen Positive Antibody Identification Anti- k Antigen Identification K Antigen - NEGATIVE Crossmatch See Detail 03/12/19 03/13/19 03/13/19 21:45 06:30 06:30 WBC 8.6 9.9 RBC 2.77 L 3.49 L Hgb 7.3 L 9.0 L Hct 22.5 L D 27.1 L D MCV 81.4 77.5 L MCH 26.5 25.8 MCHC 32.5 33.3 RDW 19.6 H 20.2 H Plt Count 373 409 MPV 8.9 8.4 Sodium 135 L Potassium 3.5 Chloride 104 Carbon Dioxide 23 Anion Gap 8 BUN 4 L Creatinine 0.4 L Creat Clearance w eGFR 186.17 Random Glucose 72 L Calcium 8.7 Phosphorus 2.8 Magnesium 2.1 Iron TIBC Iron Saturation Total Bilirubin 1.2 H Direct Bilirubin 0.4 H AST 18 ALT 12 L Alkaline Phosphatase 105 Total Protein 7.3 Albumin 3.0 L Tumor Marker AFP Opiates Screen Methadone Screen Barbiturate Screen Phencyclidine Screen Ur Amphetamines Screen MDMA (Ecstasy) Screen Benzodiazepines Screen Cocaine Screen U Marijuana (THC) Screen Blood Type Antibody Screen Antibody Identification Antigen Identification Crossmatch 03/13/19 06:30 WBC RBC Hgb Hct MCV MCH MCHC RDW Plt Count MPV Sodium Potassium Chloride Carbon Dioxide Anion Gap BUN Creatinine Creat Clearance w eGFR Random Glucose Calcium Phosphorus Magnesium Iron TIBC Iron Saturation Total Bilirubin Direct Bilirubin AST ALT Alkaline Phosphatase Total Protein Albumin Tumor Marker AFP Opiates Screen Negative Methadone Screen Negative Barbiturate Screen Negative Phencyclidine Screen Negative Ur Amphetamines Screen Negative MDMA (Ecstasy) Screen Negative Benzodiazepines Screen Negative Cocaine Screen Negative U Marijuana (THC) Screen Negative Blood Type Antibody Screen Antibody Identification Antigen Identification Crossmatch Current Medications Generic Name Dose Route Start Last Admin Trade Name Freq PRN Reason Stop Dose Admin Metoclopramide HCl 5 mg 03/12/19 18:00 03/13/19 10:54 Reglan - PO 5 mg TIDAC EMILY Administration Pantoprazole Sodium 40 mg 03/12/19 22:00 03/13/19 10:53 Protonix - PO 40 mg BID EMILY Administration Polyethylene Glycol 17 gm 03/12/19 22:00 03/13/19 10:49 Miralax (For Daily Use) - PO 17 gm BID EMILY Administration Rifaximin 550 mg 03/12/19 22:00 03/13/19 06:16 Xifaxan - PO 03/26/19 14:01 550 mg TID EMILY Administration ASSESSMENT AND PLAN: 33 year old female with PUD s/p repair of 2016, persistent pyloric channel ulcer s/p Paulie patch 02/02 s/p cauterization, 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 s/p EGD 02/04 - 5cm hiatal hernia, multiple erosions in body and antrum of the stomach, large non-bleeding ulcer in bulb of duodenum 1. Acute Blood Loss Anemia secondary to GI Blood Loss Hx of PUD s/p repair, Paulie patch H/H 4.1/3.6 on admisison - now 08/15.1 s/p 3 units PRBCs GI and Surgery consulted. No EGD +/- Colonoscopy scheduled by GI. GI recommending surgery consultation. Continue IV fluids, IV Protonix. Hemodynamically Stable. Gastrin level pending. 2. Abdominal Pain likely sec to PUD CT A/P - findings consistent with focal gastritis PPI IV GI consulted - no intervention thus far. 3. Ovarian Cysts with free fluid in Pelvis Pelvic US - bilateral ovarian cysts, no torsion, some fluid in cul-de-sac. Denies PV blood loss. 4. Hypokalemia - repleted. DVT Px - SCDs.
[2019-03-13 15:56] VITALS: TEMP 97.8
[2019-03-13 16:58] VITALS: BP 128/82; PULSE 87
--- NOTE | 2019-03-13 17:40 | PN.GI ---
GI Progress Note Subjective: abdominal pain less, deneis havingf rectal bleeding in the past, refused colonoscopy, patient non compliant to medic ation, most likely cause of non- healing duodenal ulcer - Objective Vital Signs: Vital Signs Temperature 97.8 F 03/13/19 16:57 Pulse Rate 87 03/13/19 16:57 Respiratory Rate 20 03/13/19 16:57 Blood Pressure 128/82 03/13/19 16:57 O2 Sat by Pulse Oximetry (%) 98 03/12/19 05:05 Constitutional: Well Nourished Eyes: Yes: Conjunctiva Clear HENT: Yes: Atraumatic Neck: Yes: Supple Cardiovascular: Yes: Regular Rate and Rhythm Respiratory: Yes: CTA Bilaterally ...Palpate: Yes: Soft, Tenderness, Epigastium (--mild). No: Firm/Rigid, Guarding, Hepatomegaly, Mass, Pulsatile Mass, Splenomegaly, Tenderness Labs: CBC, BMP 03/13/19 06:30 03/13/19 06:30 INR, PTT INR 1.26 (0.83-1.09) H 03/12/19 01:34 Problem List - Problems (1) Anemia Assessment/Plan: --improved Code(s): D64.9 - ANEMIA, UNSPECIFIED (2) Abdominal pain Assessment/Plan: resolving Code(s): R10.9 - UNSPECIFIED ABDOMINAL PAIN Qualifiers: Abdominal location: generalized Qualified Code(s): R10.84 - Generalized abdominal pain (3) Unintentional weight loss Code(s): R63.4 - ABNORMAL WEIGHT LOSS (4) Duodenal ulcer Assessment/Plan: R> continue Pantoprazole 40mg bid advance diet no GI procedures at this time made aware to follow if diet tolerated ok to d/c Code(s): K26.9 - DUODENAL ULCER, UNSP ACUTE OR CHRONIC, W/O HEMOR OR PERF
--- NOTE | 2019-03-14 06:11 | DS ---
Physical Exam: SUBJECTIVE: Patient seen and examined OBJECTIVE: Vital Signs Period Temp Pulse Resp BP Sys/Suárez Pulse Ox Last 24 Hr 97.3 F-98.2 F 69-92 18-20 121-135/65-92 PHYSICAL EXAM GENERAL: The patient is awake, alert, and fully oriented, in no acute distress. HEAD: Normal with no signs of trauma. EYES: PERRL, extraocular movements intact, sclera anicteric, conjunctiva clear. ENT: Ears normal, nares patent, oropharynx clear without exudates, moist mucous membranes. NECK: Trachea midline, full range of motion, supple. LUNGS: Breath sounds equal, clear to auscultation bilaterally, no wheezes, no crackles, no accessory muscle use. HEART: Regular rate and rhythm, S1, S2 without murmur, rub or gallop. ABDOMEN: Soft, nontender, nondistended, normoactive bowel sounds, no guarding, no rebound, no hepatosplenomegaly, no masses. EXTREMITIES: 2+ pulses, warm, well-perfused, no edema. NEUROLOGICAL: Cranial nerves II through XII grossly intact. Normal speech, gait not observed. PSYCH: Normal mood, normal affect. SKIN: Warm, dry, normal turgor, no rashes or lesions noted. LABS Laboratory Results - last 24 hr 03/12/19 03/13/19 03/13/19 12:00 06:30 06:30 WBC 9.9 RBC 3.49 L Hgb 9.0 L Hct 27.1 L D MCV 77.5 L MCH 25.8 MCHC 33.3 RDW 20.2 H Plt Count 409 MPV 8.4 Sodium 135 L Potassium 3.5 Chloride 104 Carbon Dioxide 23 Anion Gap 8 BUN 4 L Creatinine 0.4 L Creat Clearance w eGFR 186.17 Random Glucose 72 L Calcium 8.7 Phosphorus 2.8 Magnesium 2.1 Total Bilirubin 1.2 H Direct Bilirubin 0.4 H AST 18 ALT 12 L Alkaline Phosphatase 105 Total Protein 7.3 Albumin 3.0 L Tumor Marker AFP 4.0 Opiates Screen Methadone Screen Barbiturate Screen Phencyclidine Screen Ur Amphetamines Screen MDMA (Ecstasy) Screen Benzodiazepines Screen Cocaine Screen U Marijuana (THC) Screen 03/13/19 06:30 WBC RBC Hgb Hct MCV MCH MCHC RDW Plt Count MPV Sodium Potassium Chloride Carbon Dioxide Anion Gap BUN Creatinine Creat Clearance w eGFR Random Glucose Calcium Phosphorus Magnesium Total Bilirubin Direct Bilirubin AST ALT Alkaline Phosphatase Total Protein Albumin Tumor Marker AFP Opiates Screen Negative Methadone Screen Negative Barbiturate Screen Negative Phencyclidine Screen Negative Ur Amphetamines Screen Negative MDMA (Ecstasy) Screen Negative Benzodiazepines Screen Negative Cocaine Screen Negative U Marijuana (THC) Screen Negative HOSPITAL COURSE: Date of Admission:03/12/19 Date of Discharge: 03/14/19 Discharge Summary Reason For Visit: GASTROINTESTINAL HEMORRHAGE,ANEMIA,GASTRITIS Condition: Unchanged/Unknown - Instructions Diet, Activity, Other Instructions: Free pelvic fluid, b/l ovarian cysts with prominent endometrium. recommend follow up Pelvic US Disposition: AGAINST MEDICAL ADVICE - Home Medications Comprehensive Discharge Medication List: Ambulatory Orders Folic Acid - 1 mg PO DAILY 01/21/19 Pantoprazole Sodium [Protonix -] 40 mg PO DAILY #30 tablet.ec 01/23/19 Sucralfate Oral Suspension [Carafate Oral Suspension -] 1 g BID 03/12/19 - Discharge Referral Referred to [facility] No
[2019-03-14 08:06] LABS: CARCINOEMBRYONIC ANTIGEN 2.9 ng/mL (0.0-4.7)
== END 2019-03-13 20:30 | disposition left against medical advice (07) | DRG 241 ==
LOC: JER 22:39 → INTOOBSV 03-12 03:56 → UNDOADMOB 03-12 03:56 → JERBED 03-12 03:56 → J8W 03-12 05:27 → OBSVTOIN 03-12 17:16
PROVIDERS: ADMIT Internal Medicine
PROC: 30233N1 Transfusion of Nonautologous Red Blood Cells into Peripheral Vein, Percutaneous Approach (ICD-10-PCS; principal; 2019-03-12)
DX: K26.9 Duodenal ulcer, unspecified as acute or chronic, without hemorrhage or perforation (principal); I11.0 Hypertensive heart disease with heart failure; I50.32 Chronic diastolic (congestive) heart failure; D62 Acute posthemorrhagic anemia; E87.6 Hypokalemia; Z91.14 Patient's other noncompliance with medication regimen; Z53.29 Procedure and treatment not carried out because of patient's decision for other reasons; K29.70 Gastritis, unspecified, without bleeding; F41.9 Anxiety disorder, unspecified; F32.9 Major depressive disorder, single episode, unspecified; F17.210 Nicotine dependence, cigarettes, uncomplicated; D64.9 Anemia, unspecified; G43.909 Migraine, unspecified, not intractable, without status migrainosus; R63.4 Abnormal weight loss; Z68.21 Body mass index [BMI] 21.0-21.9, adult; R11.0 Nausea; N83.201 Unspecified ovarian cyst, right side; N83.202 Unspecified ovarian cyst, left side
CPT/HCPCS: 36415; 36430; 36511; 71045-TC-FY; 74177-TC; 76830-TC; 80048; 80053; 80307; 81003; 82105; 82248; 82272; 82378; 82607; 82728; 82746; 82941; 83540; 83550; 83690; 83735; 84100; 84703; 85025; 85027; 85044; 85610; 85651; 86140; 86301; 86304; 86850; 86870; 86900; 86901; 86902; 86922; 87086; 93005; 93010; 99285-25; G0378; J0131; J7030; P9038; P9058

== ENCOUNTER 2019-05-12 18:41 | Inpatient (IN) | payer OTHER ==
[2019-05-12] MEDS ORDERED: SODIUM CHLORIDE 0.9% 500 ML INFUS.BAG IV ONE (20:56)
--- NOTE | 2019-05-12 21:05 | PDOC ---
History of Present Illness - General Chief Complaint: Pain Stated Complaint: SENT BY DOCTOR Time Seen by Provider: 05/12/19 20:55 History Source: Patient, Primary Care Provider Exam Limitations: No Limitations - History of Present Illness Initial Comments: 05/12/19 21:03 This is a 33 YOF with h/o perforated duodenal ulcer (a few months ago, admitted here to [facility] at that time, went to the OR) who had endoscopy with Dr. Sanchez earlier today showing continued duodenal ulcer and pyloric stricture. Dr. Sanchez instructed her to come into the ED for pre-op workup and admission. He requests surgical consult with Dr. Clinton Buenrostro and admission. The patient herself states she has diffuse upper abdominal pain worse in the epigastrium, which has been ongoing intermittently for years, but is worse in the past several days. For the past couple of days she has additionally had vomiting of slightly green fluid, nonbloody. Denies diarrhea, constipation, black or bloody stool, white stool, f/c, severe abdominal pain or bloating. States the pain is not as bad as a few months ago when she was admitted for perforated duodenal ulcer. Past History - Past Medical History Allergies/Adverse Reactions: Allergies Allergy/AdvReac Type Severity Reaction Status Date / Time No Known Drug Allergies Allergy Verified 05/12/19 18:45 Home Medications: Ambulatory Orders Folic Acid - 1 mg PO DAILY 01/21/19 Pantoprazole Sodium [Protonix -] 40 mg PO DAILY #30 tablet.ec 01/23/19 Sucralfate Oral Suspension [Carafate Oral Suspension -] 1 g BID 03/12/19 Anemia: Yes (BLOOD TRANSFUSIONS) Asthma: No Cancer: No Cardiac Disorders: Yes (leaking valve) CVA: No COPD: No CHF: Yes Dementia: No Diabetes: No GI Disorders: Yes (ABDOMINAL BLOATING/PAIN/WT LOSS SINCE BLDING ULCER) Disorders: No HTN: Yes Hypercholesterolemia: No Liver Disease: No Psychiatric Problems: Yes (DEPRESSION,anxiety) Seizures: No Thyroid Disease: No - Surgical History Abdominal Surgery: Yes (perforated ulcer 2017) Appendectomy: No Cardiac Surgery: No Cholecystectomy: No Lung Surgery: No Neurologic Surgery: No Orthopedic Surgery: No - Family Disease History Family Disease History: Heart Disease: Grandparents - Reproductive History Cervical CA: No Dysfunctional Uterine Bleeding: No Ectopic : No Endometrial CA: No Polycystic Ovaries: No Tubal Ligation: No - Immunization History Immunization Up to Date: Yes - Suicide/Smoking/Psychosocial Hx Smoking History: Current every day smoker Have you smoked in the past 12 months: Yes Number of Cigarettes Smoked Daily: 4 Cigars Per Day: 0 Information on smoking cessation initiated: No 'Breaking Loose' booklet given: 05/21/17 Hx Alcohol Use: No Drug/Substance Use Hx: No Substance Use Type: None Hx Substance Use Treatment: No Review of Systems - Review of Systems Able to Perform ROS?: Yes Comments:: 05/12/19 21:26 GEN: no fever, chills, malaise, generalized weakness, or weight change HEENT: no ear pain, sore throat, vision change, or eye pain CV: no chest pain, palpitations, lightheadedness, syncope, or edema RESP: no cough, wheezing, or SOB GI: abdominal pain, nausea, vomiting, no diarrhea, constipation, or white/black/ bloody stool : no dysuria, hematuria, incontinence, retention, bleeding, or discharge MSK: no neck/back pain, muscle weakness/pain, or joint swelling/pain NEURO: no headache, seizure, vertigo, numbness, tingling, or focal weakness PSYCH: no substance use, no behavior change SKIN: no jaundice, no rash ROS otherwise negative except as noted in HPI *Physical Exam - Vital Signs Last Vital Signs Temp Pulse Resp BP Pulse Ox 98.3 F 127 H 18 141/93 97 05/12/19 18:45 05/12/19 18:45 05/12/19 18:45 05/12/19 18:45 05/12/19 18:45 - Physical Exam Comments: GENERAL: nontoxic and well-appearing, A/Ox4, no distress, answers questions appropriately, talking on phone with mother HEENT: PERRLA, EOMI, moist mucous membranes NECK/BACK: no midline ttp, no spinal stepoff or deformity, no hematoma, full ROM , neck supple CARDIOVASCULAR: regular rate/rhythm, normal S1S2, no MGR, strong peripheral pulses, capillary refill <2 seconds, extremities wwp, no edema LUNGS/RESPIRATORY: no respiratory distress, CTAB GI/ABDOMEN: symmetric [id number], nondistended, not tympanic, normoactive BS, soft, mild ttp epigastric>BUQ, no midline pulsatile masses : no CVA tenderness EXTREMITIES: no muscle atrophy, no acute deformity SKIN: warm and dry, no pallor, no jaundice, no rash, no bruising, no skin breakdown, no cuts, no lesions NEUROLOGICAL: GCS 15, CN II-XII grossly intact, 5/5 strength proximally and distally, no facial droop Heart Score/ECG Review #1 05/12/19 21:47 Sinus tachycardia, rate 108, normal axis, [id number], no ischemic ST-T changes ED Treatment Course - LABORATORY CBC & Chemistry Diagram: 05/12/19 21:23 05/12/19 21:23 - RADIOLOGY Radiology Studies Ordered: Category Date Time Status CHEST X-RAY PORTABLE* [RAD] Stat Radiology 05/12/19 20:56 Ordered Medical Decision Making - Medical Decision Making 05/12/19 21:27 33YOF with h/o perforated duodenal ulcer (went to OR a few months ago) who was instructed to come in for nonhealing duodenal ulcer and pyloric stricture per Dr. Sanchez on endoscopy today. Patient herself states continued intermittent abdominal pain x years, now with nausea and vomiting of bilious appearing fluid x days. Initial Vital Signs Temp Pulse Resp BP Pulse Ox 98.3 F 127 H 18 141/93 97 05/12/19 18:45 05/12/19 18:45 05/12/19 18:45 05/12/19 18:45 05/12/19 18:45 Exam: As noted in Physical Exam section. DDX IBNLT: duodenal/peptic ulcer wwo perforation (unlikely perforation based on exam), pancreatitis, SBO, gastritis, W/U ordered: Pre-op labs, EKG, CXR TX ordered: Pepcid, IVF, Zofran, Ofirmev I have spoken with Dr. Sanchez. Consult orders have been placed to Drs. Buenrostro and Laura as requested. EKG: Reviewed; results as noted in ECG Review section. CXR: Nothing acute, no free air under diaphragm Laboratory Tests 05/12/19 05/12/19 05/12/19 21:22 21:23 21:23 WBC 10.7 H RBC 3.51 L Hgb 9.7 L Hct 30.4 L MCV 86.7 D MCH 27.7 MCHC 32.0 RDW 21.9 H Plt Count 548 H D MPV 7.7 Absolute Neuts (auto) 8.3 H Neutrophils % 77.6 Lymphocytes % 14.4 Monocytes % 6.9 Eosinophils % 0.4 Basophils % 0.7 Nucleated RBC % 0 Platelet Estimate Increased Platelet Comment No clumping noted Anisocytosis 1+ PT with INR 14.60 H INR 1.23 H PTT (Actin FS) 34.7 Sodium Potassium Chloride Carbon Dioxide Anion Gap BUN Creatinine Est GFR (CKD-EPI)AfAm Est GFR (CKD-EPI)NonAf Random Glucose Lactic Acid 0.9 Calcium Total Bilirubin AST ALT Alkaline Phosphatase Total Protein Albumin Lipase Stool Occult Blood Blood Type Antibody Screen 05/12/19 05/12/19 05/12/19 21:23 21:23 21:23 WBC RBC Hgb Hct MCV MCH MCHC RDW Plt Count MPV Absolute Neuts (auto) Neutrophils % Lymphocytes % Monocytes % Eosinophils % Basophils % Nucleated RBC % Platelet Estimate Platelet Comment Anisocytosis PT with INR INR PTT (Actin FS) Sodium 136 Potassium 4.0 Chloride 99 Carbon Dioxide 25 Anion Gap 12 BUN 16.5 Creatinine 0.9 Est GFR (CKD-EPI)AfAm 98.75 Est GFR (CKD-EPI)NonAf 85.20 Random Glucose 94 Lactic Acid Calcium 10.2 H Total Bilirubin 0.4 AST 22 ALT 13 Alkaline Phosphatase 96 Total Protein 9.0 H Albumin 5.1 H Lipase 71 L Stool Occult Blood Blood Type O POSITIVE Antibody Screen Positive 05/12/19 22:25 WBC RBC Hgb Hct MCV MCH MCHC RDW Plt Count MPV Absolute Neuts (auto) Neutrophils % Lymphocytes % Monocytes % Eosinophils % Basophils % Nucleated RBC % Platelet Estimate Platelet Comment Anisocytosis PT with INR INR PTT (Actin FS) Sodium Potassium Chloride Carbon Dioxide Anion Gap BUN Creatinine Est GFR (CKD-EPI)AfAm Est GFR (CKD-EPI)NonAf Random Glucose Lactic Acid Calcium Total Bilirubin AST ALT Alkaline Phosphatase Total Protein Albumin Lipase Stool Occult Blood Negative Blood Type Antibody Screen 05/12/19 22:49 The Pt is unsafe for discharge at this time. They require further hospital observation, workup, and treatment. Microblog sent to [facility] for admission. Blank Decision to Admit order is placed per ED protocol. 05/12/19 23:[address] Yadav; patient admitted to Dr. Giles and order corrected. *DC/Admit/Observation/Transfer Diagnosis at time of Disposition: Duodenal ulcer, Pyloric stricture - Discharge Dispostion Condition at time of disposition: Guarded Decision to Admit order: Yes - Referrals Referrals: Berny Bella MD [Primary Care Provider] - - Patient Instructions - Post Discharge Activity
[2019-05-12 21:31] LABS: BASO % 0.7 % (0-2.0); EOS % 0.4 % (0-4.5); HEMATOCRIT 30.4 % (32.4-45.2); HEMOGLOBIN 9.7 GM/dL (10.7-15.3); LYMPH % 14.4 % (8-40); MCH 27.7 pg (25.7-33.7); MEAN CELL VOLUME 86.7 fl (80-96); MEAN PLT VOLUME 7.7 fl (7.5-11.1); MONO % 6.9 % (3.8-10.2); NEUT % 77.6 % (42.8-82.8); RBC 3.51 M/mm3 (3.60-5.2); RDW 21.9 % (11.6-15.6); WHITE BLOOD COUNT 10.7 K/mm3 (4.0-10.0)
[2019-05-12] MEDS ORDERED: ONDANSETRON 4 MG/2 ML VIAL IVPUSH ONE (21:31)
[2019-05-12 21:42] LABS: INR 1.23 (0.83-1.09); PROTHROMBIN TIME (PATIENT) 14.6 SEC (9.7-13.0)
[2019-05-12 21:44] LABS: ACTIVATED PTT 34.7 SECONDS (25.2-36.5)
[2019-05-12 21:50] LABS: PLATELET COUNT 548 K/MM3 (134-434)
--- NOTE | 2019-05-12 22:08 | PDOC ---
Documentation entered by Karli Campos SCRIBE, acting as scribe for Malick Carrillo MD. Malick Carrillo MD: This documentation has been prepared by the Andres craig Adrianna, SCRIBE, under my direction and personally reviewed by me in its entirety. I confirm that the documentation accurately reflects all work, treatment, procedures, and medical decision making performed by me. Attending Attestation - Resident Resident Name: Cathy Orourke - ED Attending Attestation I have performed the following: I have examined & evaluated the patient, The case was reviewed & discussed with the resident, I agree w/resident's findings & plan, Exceptions are as noted - HPI HPI: The patient is a 33 year old female, with a significant PMH of perforated duodenal ulcer, who presents to to the ED for pre-op workup. Patient had an endoscopy earlier today with Dr. Sanchez, which demonstrated a duodenal ulcer and pyloric stricture. As per request of Dr. Sanchez, patient come to the ED for a pre-op work-up, admission, and surgical consult with Dr. Coppola. Patient notes she has been dealing with abdominal pain for years, which has been progressively worsening. She endorses nausea and bilious vomiting (denies blood) . Allergies: NKA, NKDA Surgical History: Abdominal surgery for perforated ulcer Social History: Current every day smoker (4 cigarettes per day) PCP: Dr. Bella GI: Dr. Sanchez - Physicial Exam PE: GENERAL: Awake, alert, and fully oriented, in no acute distress. HEAD: No signs of trauma EYES: PERRLA, EOMI, sclera anicteric, conjunctiva clear ENT: Auricles normal inspection, hearing grossly normal, nares patent, oropharynx clear without exudates. Moist mucosa NECK: Nontender, no stepoffs, Normal ROM, supple, no lymphadenopathy, JVD, or masses LUNGS: Breath sounds equal, clear to auscultation bilaterally. No wheezes, and no crackles HEART: Regular rate and rhythm, normal S1 and S2, no murmurs, rubs or gallops ABDOMEN: + epigastric TTP, normoactive bowel sounds. No guarding, no rebound. No masses EXTREMITIES: Normal range of motion, no edema. No clubbing or cyanosis. No cords, erythema, or tenderness NEUROLOGICAL: Cranial nerves II through XII intact. 5/5 strength and sensation in all extremities, Normal speech, normal gait, normal cerebellar function SKIN: Warm, Dry, normal turgor, no rashes or lesions noted. - Medical Decision Making 05/12/19 22:07 33 F with epigastric pain, known pyloric stricture, presenting to ED for admission for possible dilation by Dr. Sanchez. - Labs - Pain control - Admit
[2019-05-12] MEDS ORDERED: FAMOTIDINE 20 MG/50 ML IVPB 20 MG/50 ML MG IVPB ONE ×2 (22:20→22:54)
[2019-05-12] MEDS ORDERED: ACETAMINOPHEN 1000 MG/100 ML VIAL (NON FORMULARY) IVPB ONE (22:20)
[2019-05-12] MEDS ORDERED: ONDANSETRON 4 MG/2 ML VIAL ONE (22:25)
[2019-05-12] MEDS ORDERED: ACETAMINOPHEN INJECTION 100 ML IVPB ONE (22:25)
[2019-05-12 22:27] LABS: PLATELET ESTIMATE INCREASED
[2019-05-12 22:28] LABS: ANISOCYTOSIS 1+
[2019-05-12 22:45] LABS: ALBUMIN 5.1 g/dl (3.4-5.0); BILIRUBIN,TOTAL 0.4 mg/dL (0.2-1); BLOOD UREA NITROGEN 16.5 mg/dL (7-18); CALCIUM 10.2 mg/dL (8.5-10.1); CREATININE 0.9 mg/dL (0.55-1.3)
--- NOTE | 2019-05-12 23:28 | PN ---
Teaching Attending Note Name of Resident: Miguel Yadav ATTENDING PHYSICIAN STATEMENT I saw and evaluated the patient. I reviewed the resident's note and discussed the case with the resident. I agree with the resident's findings and plan as documented. SUBJECTIVE: Patient is a 33 year old woman with history of Depression, Anxiety, HTN, ? Diastolic CHF, ?Iron deficiency anemia, Tobacco use and Perforated duodenal ulcer who had endoscopy with Dr. Sanchez earlier today showing continued duodenal ulcer and pyloric stricture. Dr. Sanchez instructed her to come into the ER for pre-op workup and admission. He requests surgical consultation with Dr. Clinton Buenrostro. Patient says she has diffuse upper abdominal pain worse in the epigastrium, which has been ongoing intermittently for years, but is worse in the past several days. For the past couple of days she has vomited slightly green fluid, nonbloody. Says her appetite is poor and she has had constipation. Denies diarrhea, black or bloody stool, white stool, fever, chills or bloating. States the pain is not as bad as a few months ago when she was admitted for perforated duodenal ulcer. Her LMP was 3 weeks ago. OBJECTIVE: Alert Vital Signs Period Temp Pulse Resp BP Sys/Suárez Pulse Ox Last 24 Hr 98.3 F 127 18 141/93 97 HEENT: No Jaundice, eye redness or discharge, PERRLA, EOMI. Normocephalic, atraumatic. External ears are normal and hearing is grossly intact. No nasal discharge. Neck: Supple, nontender. No palpable adenopathy or thyromegaly. No JVD Chest: Good effort. Clear to auscultation and percussion. Heart: Regular. No S3, rub or murmur Abdomen: Not distended, soft, epigastric tenderness and no HSM. No rebound or guarding. Normal bowel sounds. Ext: Peripheral pulses intact. No leg edema. Skin: Warm and dry. No petechiae, rash or ecchymosis. Neuro: Alert. Oriented x3. CN 2-12 grossly intact. Sensation grossly intact in all four extremities and DTR are symmetric. Psych: Appropriate mood and affect. Good insight. Home Medications Medication Instructions Recorded Folic Acid - 1 mg PO DAILY 01/21/19 Pantoprazole Sodium [Protonix -] 40 mg PO DAILY #30 tablet.ec 01/23/19 Sucralfate Oral Suspension 1 g BID 03/12/19 [Carafate Oral Suspension -] Abnormal Lab Results 05/12/19 05/12/19 05/12/19 21:23 21:23 21:23 WBC 10.7 H RBC 3.51 L Hgb 9.7 L Hct 30.4 L RDW 21.9 H Plt Count 548 H D Absolute Neuts (auto) 8.3 H PT with INR 14.60 H INR 1.23 H Calcium 10.2 H Total Protein 9.0 H Albumin 5.1 H Lipase 05/12/19 21:23 WBC RBC Hgb Hct RDW Plt Count Absolute Neuts (auto) PT with INR INR Calcium Total Protein Albumin Lipase 71 L ASSESSMENT AND PLAN: 1. Abdominal pain due to Duodenal ulcer/Pyloric stricture - Will keep her NPO, give IV NS, get urinalysis stat in view of mild leukocytosis and treat with IV protonix. CXR shows hyperinflation but no infiltrates. EKG shows sinus tachycardia with no significant ST-T wave changes. 2. Tobacco Use Counseled on risks associated with tobacco use. We will provide patient all the necessary assistance to facilitate smoking cessation and prescribe Nicotine patch. 3. Anemia - Likely due to GI blood loss. Will confirm iron deficiency and give IV iron to preempt future need for PRBC transfusion. 4. DVT prophylaxis - Use SCD for now since she may be going for a procedure. Start Lovenox 40 mg SQ q 24 hours after procedure. 5. Advance directives - Full code 6. Hypertension? - Unclear whether she has confirmed hypertension. There are no antihypertensive drugs in her medication list. Will monitor BP closely to ascertain need for drug therapy. In the meantime nonpharmacologic measures to control hypertension like weight loss, salt restriction and exercise discussed.
[2019-05-13] MEDS ORDERED: IRON SUCROSE INJECTION 300 MG in SODIUM CHLORIDE 235 ML IVPB ONE ×2 (00:20→03:30)
--- NOTE | 2019-05-13 00:22 | HP ---
CHIEF COMPLAINT: Duodenal Ulcer PCP: Dr. Baker HISTORY OF PRESENT ILLNESS: Pt. is a 33 y.o. F w/ PMHx. of HTN, Gastric ulcers ( Dx in 2016 @ 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 Pt. states that she has associated nausea and bilious non-bloody vomiting over the last 2 weeks. Pt. endorses decreased appetite over this time. Pt. states that last week Sunday and Sunday she had diarrhea x 2 episodes and has not had a BM since. Pt. states that she only took four 500mg Tylenol pills total for the abdominal but that it only made her nausea worse. Pt. denies taking any Ibuprofen, Aleve or any NSAIDs as she was instructed that it would worsen her ulcers. Pt. states that she had an EGD done yesterday by Dr. Sanchez who observed a [id number] ulcer and newly diagnosed pyloric strictures. Pt. was sent to ED for Pre-op clearance for suspected dilatation and further management of duodenal ulcer. Pt. denies ever being told that she had congestive heart failure and denies taking any medications for it. Pt. states she can walk on a flat surface without ever feeling short of breath and that she can walk up 3+ flight of stairs slowly without feeling short of breath. Pt. denies any fever, chills, chest pain, shortness of breath, blood in the stool, or blood in the urine. ER course was notable for: (1) Consults to Surgery and GI (Dr. Alejandro and Laura), T&S, EKG, IV Ofirmev, Famotidine (2) Zofran, CXR, NS 1L (3) Recent Travel: No PAST MEDICAL HISTORY: As above PAST SURGICAL HISTORY: As above Social History: Smokin-Cigs/ day decreased from 1/2 PPD Alcohol: Denies Drugs: Denies VIRTUAL CUSTOMER ASSISTANT: 3 weeks ago, was shorter than usual (2 days then 1 day break and then 1 more day of menstruation, usually 5 days contiguous), has been abnormal since of her son 5 years ago. Pt. states she her last Pap Smear was 5 years ago of which a [facility] Biopsy was performed and was negative for malignancy. Does not have VIRTUAL CUSTOMER ASSISTANT. Family History: Mother- Heart Disease and DM, Sister-Heart murmurs Allergies No Known Drug Allergies Allergy (Verified 05/12/19 18:45) HOME MEDICATIONS: Home Medications Medication Instructions Recorded Folic Acid - 1 mg PO DAILY 01/21/19 Pantoprazole Sodium [Protonix -] 40 mg PO DAILY #30 tablet.ec 01/23/19 Sucralfate Oral Suspension 1 g BID 03/12/19 [Carafate Oral Suspension -] REVIEW OF SYSTEMS As above PHYSICAL EXAMINATION Vital Signs - 24 hr 05/12/19 18:45 Temperature 98.3 F Pulse Rate 127 H Respiratory 18 Rate Blood Pressure 141/93 O2 Sat by Pulse 97 Oximetry (%) GENERAL: Awake, alert, and fully oriented, in no acute distress. HEAD: Normal with no signs of trauma. EYES: Pupils equal, round and reactive to light, extraocular movements intact, sclera anicteric, conjunctiva clear. EARS, NOSE, THROAT: Ears normal, nares patent, oropharynx clear without exudates. Moist mucous membranes. NECK: Normal range of motion, supple without lymphadenopathy, JVD, or masses. LUNGS: Breath sounds equal, clear to auscultation bilaterally. No wheezes, and no crackles. No accessory muscle use. HEART: Regular rate and rhythm, normal S1 and S2 without murmur, rub or gallop. ABDOMEN: Soft, Diffuse tenderness most prominent in Epigastrium > RUQ > LUQ, not distended, normoactive bowel sounds, no guarding, no rebound, no masses. MUSCULOSKELETAL: Normal range of motion at all joints. No bony deformities or tenderness. No CVA tenderness. UPPER EXTREMITIES: 2+ pulses, warm, well-perfused. No cyanosis. No clubbing. No peripheral edema. LOWER EXTREMITIES: 2+ pulses, warm, well-perfused. No calf tenderness. No peripheral edema. NEUROLOGICAL: Normal speech. Gait not assessed. PSYCHIATRIC: Cooperative. Good eye contact. Appropriate mood and affect. SKIN: Warm, dry, normal turgor, no rashes or lesions noted, normal capillary refill. Laboratory Results - last 24 hr 05/12/19 05/12/19 05/12/19 21:22 21:23 21:23 WBC 10.7 H RBC 3.51 L Hgb 9.7 L Hct 30.4 L MCV 86.7 D MCH 27.7 MCHC 32.0 RDW 21.9 H Plt Count 548 H D MPV 7.7 Absolute Neuts (auto) 8.3 H Neutrophils % 77.6 Lymphocytes % 14.4 Monocytes % 6.9 Eosinophils % 0.4 Basophils % 0.7 Nucleated RBC % 0 Platelet Estimate Increased Platelet Comment No clumping noted Anisocytosis 1+ PT with INR 14.60 H INR 1.23 H PTT (Actin FS) 34.7 Sodium Potassium Chloride Carbon Dioxide Anion Gap BUN Creatinine Est GFR (CKD-EPI)AfAm Est GFR (CKD-EPI)NonAf Random Glucose Lactic Acid 0.9 Calcium Total Bilirubin AST ALT Alkaline Phosphatase Total Protein Albumin Lipase Stool Occult Blood Blood Type Antibody Screen Antibody Identification Antigen Identification 05/12/19 05/12/19 05/12/19 21:23 21:23 21:23 WBC RBC Hgb Hct MCV MCH MCHC RDW Plt Count MPV Absolute Neuts (auto) Neutrophils % Lymphocytes % Monocytes % Eosinophils % Basophils % Nucleated RBC % Platelet Estimate Platelet Comment Anisocytosis PT with INR INR PTT (Actin FS) Sodium 136 Potassium 4.0 Chloride 99 Carbon Dioxide 25 Anion Gap 12 BUN 16.5 Creatinine 0.9 Est GFR (CKD-EPI)AfAm 98.75 Est GFR (CKD-EPI)NonAf 85.20 Random Glucose 94 Lactic Acid Calcium 10.2 H Total Bilirubin 0.4 AST 22 ALT 13 Alkaline Phosphatase 96 Total Protein 9.0 H Albumin 5.1 H Lipase 71 L Stool Occult Blood Blood Type O POSITIVE Antibody Screen Positive Antibody Identification Anti-k Antigen Identification No Result Required. 05/12/19 22:25 WBC RBC Hgb Hct MCV MCH MCHC RDW Plt Count MPV Absolute Neuts (auto) Neutrophils % Lymphocytes % Monocytes % Eosinophils % Basophils % Nucleated RBC % Platelet Estimate Platelet Comment Anisocytosis PT with INR INR PTT (Actin FS) Sodium Potassium Chloride Carbon Dioxide Anion Gap BUN Creatinine Est GFR (CKD-EPI)AfAm Est GFR (CKD-EPI)NonAf Random Glucose Lactic Acid Calcium Total Bilirubin AST ALT Alkaline Phosphatase Total Protein Albumin Lipase Stool Occult Blood Negative Blood Type Antibody Screen Antibody Identification Antigen Identification ASSESSMENT/PLAN: Pt. is a 33 y.o. F w/ PMHx. 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 Pt. sent to ED by Dr. Sanchez for Pre-op clearance. #Abdominal Pain 2/2 Non-healing Duodenal Ulcer and complicated by Pyloric Strictures Consults to Dr. Sanchez and Dr. Alejandro appreciated (GI and surgery) Pt. had EGD done today, f/u results from Dr. Sanchez RCRI: Calculates Pt.'s risk as Class III if Pt. indeed has CHF putting the Pt. at a 10.6% risk, if Pt. does not have CHF then the Pt is Class II with a 6.0% risk for adverse cardiac events or . Pt. endorses greater than 4 METs of activity EKG: shows Sinus tachycardia QTc: 490 Avoid QT prolonging drugs, suggest Tigan if Pt. becomes nauseous again #Anemia w/ Thrombocytosis Hgb: 9.7, Pt. in the past has been ~ 9.0 range Pt. has required pRBCs in multiple visits in the past f/u Iron studies and reticulocyte count Iron deficit as calculated by Ganzoni Equation is 765mg Iron started 300 mg IV Venofer x 2 AFTER Iron studies trend CBC BID, as Pt. has bled because of ulcers in past on multiple visits FOBT - INR: 1.23 Thrombocytosis likely reactive to duodenal ulcers and chronic anemia, will continue to monitor with CBC #FEN NS @ 75ml/hr- for volume depletion monitor electrolytes and replete as needed NPO #DVT Ppx. No AC given bleeding risk TEDs/ Early ambulation Visit type - Emergency Visit Emergency Visit: Yes ED Registration Date: 05/12/19 Care time: The patient presented to the Emergency Department on the above date and was hospitalized for further evaluation of their emergent condition. - New Patient This patient is new to me today: Yes Date on this admission: 05/13/19 - Critical Care Critical Care patient: No
[2019-05-13] MEDS ORDERED: MORPHINE SULFATE 2 MG/ML VIAL ONE ×3 (01:03→10:11)
[2019-05-13] MEDS: SODIUM CHLORIDE 1,000 ML IV SCH ×2 (01:40→14:00)
[2019-05-13] MEDS: IRON SUCROSE INJECTION 300 MG in SODIUM CHLORIDE 235 ML IVPB ONE ×2 (03:57→04:07)
--- NOTE | 2019-05-13 08:49 | CON.GI ---
Consult Consult Specialty:: GI Referred by:: Dr Ctahy Orourke Reason for Consultation:: non-healing duodenal ulcer - History of Present Illness History of Present Illness: Patient has history of of perforated duodenal ulcer s/p surgical repair. She was re-admitted previously due to nausea and vomiting. Repeat endoscopy done on 05/12/19 and noted with pyloric stricture associated with laerge anterior wall non healing duodenal ulcer. Patient admitted for further evaluation and management. Patient denies rectal bleeding, blood in stool, melena. - History Source History Provided By: Patient Limitations to Obtaining History: No Limitations - Past Medical History Cardio/Vascular: Yes: HTN Gastrointestinal: Yes: Peptic Ulcer Disease, Other (pyloric stricture) ...LMP: 12/02/18 Psych: Yes: Depression Additional Medical History: Anemia. Depression not on meds - Alcohol/Substance Use Hx Alcohol Use: No History of Substance Use: reports: None - Smoking History Smoking history: Current every day smoker Have you smoked in the past 12 months: Yes Aproximately how many cigarettes per day: 4 - Social History Usual Living Arrangement: With Significant Other ADL: Independent History of Recent Travel: No Home Medications - Allergies Allergies/Adverse Reactions: Allergies Allergy/AdvReac Type Severity Reaction Status Date / Time No Known Drug Allergies Allergy Verified 05/12/19 18:45 - Home Medications Home Medications: Ambulatory Orders Folic Acid - 1 mg PO DAILY 01/21/19 Pantoprazole Sodium [Protonix -] 40 mg PO DAILY #30 tablet.ec 01/23/19 Sucralfate Oral Suspension [Carafate Oral Suspension -] 1 g PO BID 03/12/19 Family Disease History - Family Disease History Family Disease History: CA: Grandparent (maternal grandfather-Colon CA), Other: Mother (anemia) Review of Systems - Review of Systems Constitutional: reports: Unintentional Wgt. Loss Eyes: reports: No Symptoms HENT: reports: No Symptoms Neck: reports: No Symptoms Cardiovascular: reports: Chest Pain Respiratory: reports: No Symptoms Gastrointestinal: reports: Abdominal Pain, Nausea, Vomiting Genitourinary: reports: No Symptoms Breasts: reports: No Symptoms Reported Musculoskeletal: reports: No Symptoms Integumentary: reports: No Symptoms Neurological: reports: No Symptoms Endocrine: reports: No Symptoms Hematology/Lymphatic: reports: No Symptoms Psychiatric: reports: No Symptoms Physical Exam-GI Vital Signs: Vital Signs Temperature 98.3 F 06/25/19 07:16 Pulse Rate 104 H 05/13/19 07:16 Respiratory Rate 18 05/13/19 04:25 Blood Pressure 158/108 H 05/13/19 07:16 O2 Sat by Pulse Oximetry (%) 99 05/13/19 07:16 Constitutional: Yes: No Distress, Calm Eyes: Yes: Conjunctiva Clear HENT: Yes: Atraumatic Cardiovascular: Yes: Regular Rate and Rhythm Respiratory: Yes: Regular, CTA Bilaterally Gastrointestinal Inspection: Yes: Scars. No: WNL, Ascites, Distention, Hernia, Other ...Auscultate: Yes: Normoactive Bowel Sounds. No: Hyperactive Bowel Sounds, Hypoactive Bowel Sounds, No Bowel Sounds, Other ...Palpate: Yes: Soft, Tenderness (diffuse). No: Firm/Rigid, Guarding, Hepatomegaly, Mass, Pulsatile Mass, Splenomegaly, Tenderness, Epigastium, Tenderness, Rebound, Other ...Percussion: Yes: Other (high tympany). No: Dullness, Fluid Wave, Tympanitic Neurological: Yes: Alert, Oriented Psychiatric: Yes: Alert, Oriented Labs: CBC, BMP 05/12/19 21:23 05/12/19 21:23 INR, PTT INR 1.23 (0.83-1.09) H 05/12/19 21:23 Active Medications Generic Name Dose Route Start Last Admin Trade Name Freq PRN Reason Stop Dose Admin Sodium Chloride 1,000 mls @ 75 mls/hr 05/13/19 00:15 05/13/19 01:40 Normal Saline - IV 05/14/19 13:34 75 mls/hr ASDIR EMILY Administration Morphine Sulfate 2 mg 05/13/19 00:12 Morphine Sulfate IVPUSH Q4H PRN PAIN LEVEL 7 - 10 Problem List - Problems (1) Pyloric stricture Assessment/Plan: Pyloric Stricture associated with non healing duodenal ulcer R>Surgical Consult with Dr Alejandro >Clear liquid diet >IV Protonix >IV hydration Code(s): K31.1 - ADULT HYPERTROPHIC PYLORIC STENOSIS
[2019-05-13] MEDS ORDERED: PANTOPRAZOLE SODIUM 40 MG in SODIUM CHLORIDE 100 ML IVPB SCH (10:00)
--- NOTE | 2019-05-13 10:34 | EKG ---
Test Reason : Blood Pressure : / mmHG Vent. Rate : 108 BPM Atrial Rate : 108 BPM P-R Int : 142 ms QRS Dur : 070 ms QT Int : 366 ms P-R-T Axes : 068 040 052 degrees QTc Int : 490 ms SINUS TACHYCARDIA OTHERWISE NORMAL ECG WHEN COMPARED WITH ECG OF 12-MAR-2019 02:59, NO SIGNIFICANT CHANGE WAS FOUND Confirmed by Serge Moreno MD ([id number]) on 05/13/2019 10:34:38 AM Referred By: Confirmed By:Serge Moreno MD
[2019-05-13] MEDS: MORPHINE SULFATE 2 MG/ML VIAL IVPUSH PRN ×3 (10:53→22:33)
[2019-05-13] MEDS: PANTOPRAZOLE SODIUM 40 MG VIAL IVPUSH SCH (12:41)
--- NOTE | 2019-05-13 13:28 | PN ---
Physical Exam: SUBJECTIVE: Patient seen tis morning. very annoyed that she has to keep talking to people. OBJECTIVE: Vital Signs Temperature 98.2 F 05/13/19 13:14 Pulse Rate 104 H 05/13/19 13:14 Respiratory Rate 20 05/13/19 13:14 Blood Pressure 121/79 05/13/19 13:14 O2 Sat by Pulse Oximetry (%) 99 05/13/19 07:16 GENERAL: The patient is awake, alert, and fully oriented, in no acute distress. HEAD: Normal with no signs of trauma. EYES: PERRL, extraocular movements intact, LUNGS: Breath sounds equal, clear to auscultation bilaterally, no wheezes, no crackles, no accessory muscle use. HEART: Regular rate and rhythm, S1, S2 without murmur, rub or gallop. ABDOMEN: tenderness to mid epigastric area EXTREMITIES: 2+ pulses, warm, well-perfused, no edema. SKIN: Warm, dry, normal turgor, no rashes or lesions noted CBC, BMP 05/12/19 21:23 05/12/19 21:23 Active Medications Sodium Chloride (Normal Saline -) 1,000 mls @ 75 mls/hr IV ASDIR [facility] Stop: 05/14/19 13:34 Last Admin: 05/13/19 01:40 Dose: 75 mls/hr Morphine Sulfate (Morphine Sulfate) 2 mg IVPUSH Q4H PRN PRN Reason: PAIN LEVEL 7 - 10 Last Admin: 05/13/19 10:53 Dose: 2 mg Pantoprazole Sodium (Protonix Iv) 40 mg IVPUSH DAILY [facility] Last Admin: 05/13/19 12:41 Dose: 40 mg ASSESSMENT/PLAN: Patient is a 33 y/o female with a history of HTN, gastric ulcers, Ex lap in 2016 , CHFp EF, migraines, depression, iron deficiency, and anemia who presents for duodenal ulcer and pyloric strictures. #duodenal ulcers and pyloric strictures - sent in by Dr. Sanchez, found on endoscope, pre op - patient on clear liquids, npo after midnight - Dr Sanchez will discuss with Dr Robin for surgical options - QTC 490, tigan if patient becomes nauseous - morphine 2 mg q6h for pain #iron deficiency anemia - patient received venofir yesterday - baseline ~ 9 will continue to monitor #CHF - Echo (12/07): left ventricle normal size, systolic function is normal, EF 65 -70, left atrial size normal - cardiac consult for cardiac clearance - AHUMADA 0.1 % JOCELYN risk FEN - clear liquid, diabetic diet as per surgery Dispo: f/u as per surgery Visit type - Emergency Visit Emergency Visit: No - New Patient This patient is new to me today: No - Critical Care Critical Care patient: No
--- NOTE | 2019-05-13 13:45 | CONSULT ---
- Consultation REQUESTING PROVIDER: CONSULT REQUEST: We have been asked to surgically evaluate this patient for definitive tx. of sequelae of long standing peptic ulcer disease refractory to medical management. PCP:Liz Yan HISTORY OF PRESENT ILLNESS: 33 y/o AA/femaale was sent to the ER after outpatient EGD by Dr. 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 PMHx: none PSHx: as above. Home Medications Medication Instructions Recorded Folic Acid - 1 mg PO DAILY 01/21/19 Pantoprazole Sodium [Protonix -] 40 mg PO DAILY #30 tablet.ec 01/23/19 Sucralfate Oral Suspension 1 g PO BID 03/12/19 [Carafate Oral Suspension -] Allergies Allergy/AdvReac Type Severity Reaction Status Date / Time No Known Drug Allergies Allergy Verified 05/12/19 18:45 REVIEW OF SYSTEMS: CONSTITUTIONAL: Absent: fever, chills, diaphoresis, generalized PESENT: weakness, malaise, loss of appetite, weight change CARDIOVASCULAR: Present: chest pain RESPIRATORY: Absent: cough, shortness of breath, dyspnea with exertion, wheezing, stridor, hemoptysis GASTROINTESTINAL: Present: abdominal pain, vomiting, diarrhea, Absent: constipation, melena, hematochezia GENITOURINARY: Absent: dysuria, frequency, urgency, hesitancy, hematuria, flank pain, genital pain MUSCULOSKELETAL: Absent: myalgia, arthralgia, joint swelling, back pain, neck pain SKIN: Absent: rash, itching, pallor HEMATOLOGIC/IMMUNOLOGIC: Absent: easy bleeding, easy bruising, lymphadenopathy NEUROLOGIC: Absent: headache, focal weakness, paresthesias, dizziness, unsteady gait, seizure, mental status changes, bladder or bowel incontinence PSYCHIATRIC: Absent: anxiety, depression, suicidal or homicidal ideation, hallucinations. PHYSICAL EXAM: GENERAL: Awake, alert, and fully oriented, in no acute distress. HEAD: Normal with no signs of trauma. EYES: sclera anicteric, conjunctiva clear. NECK: Normal ROM, supple without lymphadenopathy, JVD, or masses. LUNGS: Clear to auscultation bilat anteriorly. HEART: S1 and S2 present. No murmurs ABDOMEN: Soft, nontender, not distended, normoactive bowel sounds, no guarding, no rebound, no masses. No organomegaly. Healed midline surgical scar; no hernias. MUSCULOSKELETAL: Normal ROM at all joints. No bony deformities or tenderness. No CVA tenderness. UPPER EXTREMITIES: 2+ pulses, warm, well-perfused. No cyanosis. Cap refill <2 seconds. No peripheral edema. LOWER EXTREMITIES: 2+ pulses, warm, well-perfused. No calf tenderness. No peripheral edema. NEUROLOGICAL: Normal speech, gait not observed. PSYCH: Cooperative. Good eye contact. Appropriate mood and affect. SKIN: Warm, dry, normal turgor, no rashes or lesions noted. Vital Signs Temperature 98.2 F 05/13/19 13:14 Pulse Rate 104 H 05/13/19 13:14 Respiratory Rate 20 05/13/19 13:14 Blood Pressure 121/79 05/13/19 13:14 O2 Sat by Pulse Oximetry (%) 99 05/13/19 07:16 Lab Results WBC 10.7 K/mm3 (4.0-10.0) H 05/12/19 21:23 RBC 3.51 M/mm3 (3.60-5.2) L 05/12/19 21:23 Hgb 9.7 GM/dL (10.7-15.3) L 05/12/19 21:23 Hct 30.4 % (32.4-45.2) L 05/12/19 21:23 MCV 86.7 fl (80-96) D 05/12/19 21:23 MCHC 32.0 g/dl (32.0-36.0) 05/12/19 21:23 RDW 21.9 % (11.6-15.6) H 05/12/19 21:23 Plt Count 548 K/MM3 (134-434) H D 05/12/19 21:23 Sodium 136 mmol/L (136-145) 05/12/19 21:23 Potassium 4.0 mmol/L (3.5-5.1) 05/12/19 21:23 Chloride 99 mmol/L (98-107) 05/12/19 21:23 Carbon Dioxide 25 mmol/L (21-32) 05/12/19 21:23 Anion Gap 12 MMOL/L (8-16) 05/12/19 21:23 BUN 16.5 mg/dL (7-18) 05/12/19 21:23 Creatinine 0.9 mg/dL (0.55-1.3) 05/12/19 21:23 Random Glucose 94 mg/dL (74-106) 05/12/19 21:23 Calcium 10.2 mg/dL (8.5-10.1) H 05/12/19 21:23 Blood Type O POSITIVE 05/12/19 21:23 Antibody Screen Positive 05/12/19 21:23 INR 1.23 (0.83-1.09) H 05/12/19 21:23 IMP: by history intractable peptic ulcer disease w/history of perforation and Paulie patch closure January 2017 and previous UGIB w/pseudoaneyrysm of the gastroduodenal artery s/p embolization ? and clipping and now w/evidence of evolving gastric outlet obstruction and non healing (ulcers) on EGD done . PLAN: Patient would most likely benefit from antrectomy/distal gastrectomy and Minda-en-Y reconstruction as definitive tx; I will discuss this w/ Dr. Juan Buenrostro who was originally consulted by Dr.J. Sanchez. Malick Robin MD FACS
--- NOTE | 2019-05-13 15:04 | CON.CARD ---
Consult Consult Specialty:: Cardiology Referred by:: Dr. Sanchez Reason for Consultation:: Cardiac evaluation - History of Present Illness Chief Complaint: Diffuse abdominal discomfort History of Present Illness: Patient is a 33 year old female with history of perforated duodenal ulcer followed by Dr. Inder Sanchez and referred for admission with continued duodenal ulcer and pyloric stricture. She was referred for further work up and possible surgery. She complains of diffuse abdominal discomfort on palpation. She denies chest pain, shortness of breath or palpitations. She denies paroxysmal nocturnal dyspnea or orthopnea. She denies fever or chills. She denies nausea, vomiting, diarrhea but complains of bloating and diffuse abdominal discomfort. She denies headache or lightheadedness. Cardiology consultation was called for further input. - History Source History Provided By: Patient, Medical Record Limitations to Obtaining History: No Limitations - Past Medical History Cardio/Vascular: Yes: HTN Gastrointestinal: Yes: Peptic Ulcer Disease, Other (pyloric stricture) ...LMP: 12/02/18 Psych: Yes: Depression Additional Medical History: Anemia. Depression not on meds - Alcohol/Substance Use Hx Alcohol Use: No History of Substance Use: reports: None - Smoking History Smoking history: Current every day smoker Have you smoked in the past 12 months: Yes Aproximately how many cigarettes per day: 4 - Social History Usual Living Arrangement: With Significant Other ADL: Independent History of Recent Travel: No Home Medications - Allergies Allergies/Adverse Reactions: Allergies Allergy/AdvReac Type Severity Reaction Status Date / Time No Known Drug Allergies Allergy Verified 05/12/19 18:45 - Home Medications Home Medications: Ambulatory Orders Folic Acid - 1 mg PO DAILY 01/21/19 Ferrous Sulfate 325 mg PO TID 05/13/19 Omeprazole 40 mg PO BID 05/13/19 Family Disease History - Family Disease History Family Disease History: CA: Grandparent (maternal grandfather-Colon CA), Other: Mother (anemia) Review of Systems - Review of Systems Constitutional: denies: Chills, Fever Cardiovascular: denies: Chest Pain, Palpitations, Shortness of Breath Respiratory: denies: Cough, Hemoptysis, Orthopnea, PND, SOB, SOB on Exertion Gastrointestinal: reports: Abdominal Pain, Bloating. denies: Constipation, Diarrhea, Melena, Nausea, Rectal Bleeding, Vomiting Musculoskeletal: denies: Back Pain, Joint Pain Neurological: denies: Dizziness, Headache, Seizure, Syncope Vital Signs: Vital Signs Temperature 98.2 F 05/13/19 13:14 Pulse Rate 104 H 05/13/19 13:14 Respiratory Rate 20 05/13/19 13:14 Blood Pressure 121/79 05/13/19 13:14 O2 Sat by Pulse Oximetry (%) 99 05/13/19 07:16 Eyes: Yes: PERRL HENT: Yes: Atraumatic Neck: Yes: Supple Respiratory: Yes: CTA Bilaterally Gastrointestinal: Yes: Normal Bowel Sounds, Tenderness Cardiovascular: Yes: Regular Rate and Rhythm JVD: No PMI: Non-Displaced Heart Sounds: Yes: S1, S2. No: Gallop Murmur: No: Systolic Murmur, Diastolic Murmur Edema: No - Other Data Labs, Other Data: CBC, BMP 05/12/19 21:23 05/12/19 21:23 INR, PTT INR 1.23 (0.83-1.09) H 05/12/19 21:23 Laboratory Results - last 24 hr 05/12/19 05/12/19 05/12/19 21:22 21:23 21:23 WBC 10.7 H RBC 3.51 L Hgb 9.7 L Hct 30.4 L MCV 86.7 D MCH 27.7 MCHC 32.0 RDW 21.9 H Plt Count 548 H D MPV 7.7 Absolute Neuts (auto) 8.3 H Neutrophils % 77.6 Lymphocytes % 14.4 Monocytes % 6.9 Eosinophils % 0.4 Basophils % 0.7 Nucleated RBC % 0 Platelet Estimate Increased Platelet Comment No clumping noted Anisocytosis 1+ Retic Count PT with INR 14.60 H INR 1.23 H PTT (Actin FS) 34.7 Sodium Potassium Chloride Carbon Dioxide Anion Gap BUN Creatinine Est GFR (CKD-EPI)AfAm Est GFR (CKD-EPI)NonAf Random Glucose Lactic Acid 0.9 Calcium Ferritin Total Bilirubin AST ALT Alkaline Phosphatase Total Protein Albumin Lipase Urine Color Urine Appearance Urine pH Ur Specific [place] Urine Protein Urine Glucose (UA) Urine Ketones Urine Blood Urine Nitrite Urine Bilirubin Urine Urobilinogen Ur Leukocyte Esterase Urine WBC (Auto) Urine RBC (Auto) Urine Casts (Auto) U Epithel Cells (Auto) Urine Bacteria (Auto) Urine HCG, Qual Stool Occult Blood Blood Type Antibody Screen Antibody Identification Antigen Identification 05/12/19 05/12/1905/12/19 21:23 21:23 21:23 WBC RBC Hgb Hct MCV MCH MCHC RDW Plt Count MPV Absolute Neuts (auto) Neutrophils % Lymphocytes % Monocytes % Eosinophils % Basophils % Nucleated RBC % Platelet Estimate Platelet Comment Anisocytosis Retic Count PT with INR INR PTT (Actin FS) Sodium 136 Potassium 4.0 Chloride 99 Carbon Dioxide 25 Anion Gap 12 BUN 16.5 Creatinine 0.9 Est GFR (CKD-EPI)AfAm 98.75 Est GFR (CKD-EPI)NonAf 85.20 Random Glucose 94 Lactic Acid Calcium 10.2 H Ferritin Total Bilirubin 0.4 AST 22 ALT 13 Alkaline Phosphatase 96 Total Protein 9.0 H Albumin 5.1 H Lipase 71 L Urine Color Urine Appearance Urine pH Ur Specific [place] Urine Protein Urine Glucose (UA) Urine Ketones Urine Blood Urine Nitrite Urine Bilirubin Urine Urobilinogen Ur Leukocyte Esterase Urine WBC (Auto) Urine RBC (Auto) Urine Casts (Auto) U Epithel Cells (Auto) Urine Bacteria (Auto) Urine HCG, Qual Stool Occult Blood Blood Type O POSITIVE Antibody Screen Positive Antibody Identification Anti-k Antigen Identification No Result Required. 05/13/19 05/13/19 14:49 14:49 WBC RBC Hgb Hct MCV MCH MCHC RDW Plt Count MPV Absolute Neuts (auto) Neutrophils % Lymphocytes % Monocytes % Eosinophils % Basophils % Nucleated RBC % Platelet Estimate Platelet Comment Anisocytosis Retic Count PT with INR INR PTT (Actin FS) Sodium Potassium Chloride Carbon Dioxide Anion Gap BUN Creatinine Est GFR (CKD-EPI)AfAm Est GFR (CKD-EPI)NonAf Random Glucose Lactic Acid Calcium Ferritin Total Bilirubin AST ALT Alkaline Phosphatase Total Protein Albumin Lipase Urine Color Yellow Urine Appearance Clear Urine pH 7.5 Ur Specific [place] 1.014 Urine Protein Negative Urine Glucose (UA) Negative Urine Ketones 1+ H Urine Blood Negative Urine Nitrite Negative Urine Bilirubin Negative Urine Urobilinogen 1.0 Ur Leukocyte Esterase 3+ H Urine WBC (Auto) 23 Urine RBC (Auto) 4 Urine Casts (Auto) 6 U Epithel Cells (Auto) 2.8 Urine Bacteria (Auto) 117.9 Urine HCG, Qual Negative Stool Occult Blood Blood Type Antibody Screen Antibody Identification Antigen Identification Sinus tachycardia, no ST-T abnormality Imaging - Results Chest X-ray: Report Reviewed (Unremarkable) EKG: Report Reviewed Problem List - Problems (1) Duodenal ulcer Code(s): K26.9 - DUODENAL ULCER, UNSP ACUTE OR CHRONIC, W/O HEMOR OR PERF (2) Pyloric stricture Code(s): K31.1 - ADULT HYPERTROPHIC PYLORIC STENOSIS (3) Abdominal pain Code(s): R10.9 - UNSPECIFIED ABDOMINAL PAIN Qualifiers: Abdominal location: generalized Qualified Code(s): R10.84 - Generalized abdominal pain (4) Epigastric pain Code(s): R10.13 - EPIGASTRIC PAIN (5) Anemia Code(s): D64.9 - ANEMIA, UNSPECIFIED Qualifiers: Anemia type: iron deficiency Iron deficiency anemia type: chronic blood loss Qualified Code(s): D50.0 - Iron deficiency anemia secondary to blood loss (chronic) (6) Hypertension Code(s): I10 - ESSENTIAL (PRIMARY) HYPERTENSION Qualifiers: Hypertension type: essential hypertension Qualified Code(s): I10 - Essential (primary) hypertension Assessment/Plan 1. History of perforation of duodenal ulcer and pyloric stricture 2. HTN (not on any medical therapy) 3. Anemia PLAN: 1. Surgery input noted for discussion of possible abdominal surgery 2. Echocardiography to assess LV/RV and valvular function (last echocardiography in November revealed normal LV systolic function,mild MR and mild TR) 3. Monitor BP and initiate medical therapy if necessary 4. Follow CBC. Etiology of anemia to be evaluated Further plans are to follow Major Monterroso MD
--- NOTE | 2019-05-13 16:43 | PN ---
Teaching Attending Note Name of Resident: Svitlana Figueroa ATTENDING PHYSICIAN STATEMENT I reviewed the resident's note and discussed the case with the resident. I agree with the resident's findings and plan as documented. SUBJECTIVE:did not want to engage in conversation. i spoke to enough doctors today OBJECTIVE: Last Vital Signs Temp Pulse Resp BP Pulse Ox 98.2 F 104 H 20 121/79 99 05/13/19 13:14 05/13/19 13:14 05/13/19 13:14 05/13/19 13:14 05/13/19 07:16 ASSESSMENT AND PLAN: 33 yo F with PMH Depression, Anxiety, HTN, ?Diastolic CHF, ?Iron deficiency anemia, Tobacco use and Perforated duodenal ulcer who had endoscopy on 05/12 showing non healing peptic ulcer with pyloric stenosis and sent to ER for further evaluation 1. Abdominal pain- due to intractable peptic ulcer and pyloric stenosis. unsure if patient had workup for ulcer disease as outpatient. would benefit from surgical intervention with antrectomy and distal gastrectomy by surgery. spoke with surgeon who will d/w patient risks/benefits of procedure. will consult cardio for clearance as has questionable history of diastolic heart failure and unclear if ischemia eval has been done. will place on clear liquids for now, PPI , IVF, pain and nausea medication. surgery and GI on board 2. Normocytic anemia- check iron studies. no signs of bleeding. hgb at baseline from previous hospitalizations. venofer given in the ER 3. Elevated BP- likely due to pain. will monitor. start medications if persists. as per report she does not take previous antihypertensives as recommended in 2017 4. diastolic CHF- in 2017 showed diastolic impairment however repeat earlier this year appeared to be normal. cardio conuslted 5. DVT ppx- SCD
[2019-05-13 17:10] LABS: EPI CELLS 2.8 /HPF (0-5/HPF); HYALINE CASTS 6 /lpf (0-8); PH,URINE 7.5 (5.0-8.0); URINE APPEARANCE CLEAR; URINE BACTERIA 117.9 /hpf (NEGATIVE); URINE BILIRUBIN NEGATIVE (NEGATIVE); URINE COLOR YELLOW; URINE GLUCOSE (UA) NEGATIVE (NEGATIVE); URINE KETONE 1+ (NEGATIVE); URINE LEUK ESTERASE 3+ (NEGATIVE); URINE NITRITE NEGATIVE (NEGATIVE); URINE PROTEIN NEGATIVE (NEGATIVE); URINE RBC 4 /hpf (0-4); URINE WBC 23 /hpf (0-5)
[2019-05-13] MEDS ORDERED: ACETAMINOPHEN 1000 MG/100 ML VIAL (NON FORMULARY) IVPB PRN (18:39)
[2019-05-13 18:40] VITALS: BMI 20.7
[2019-05-13 19:00] LABS: YEAST FEW (NEGATIVE)
[2019-05-13] MEDS ORDERED: traMADol HCL 50 MG TABLET PO ONE (19:07)
[2019-05-13] MEDS ORDERED: MORPHINE SULFATE 2 MG/ML VIAL SQ PRN (20:28)
[2019-05-13] MEDS ORDERED: morphine SULFATE 4 MG/ML VIAL IVPUSH ONE ×2 (21:37→23:19)
[2019-05-13] MEDS ORDERED: PANTOPRAZOLE SODIUM 40 MG VIAL IVPUSH ONE (23:15)
[2019-05-13] MEDS ORDERED: MAG HYDROX/AL HYDROX/SIMETH -MYLANTA- ORAL SUSPENSION PO ONE (23:15)
[2019-05-13] MEDS ORDERED: FAMOTIDINE 20 MG/50 ML IVPB 20 MG/50 ML MG IVPB ONE (23:16)
[2019-05-14] MEDS ORDERED: MAG HYDROX/AL HYDROX/SIMETH 30 ML UNIT-DOSE CUP PO ONE (00:30)
[2019-05-14] MEDS: SODIUM CHLORIDE 1,000 ML IV SCH (00:37)
[2019-05-14 07:59] LABS: INR 1.08 (0.83-1.09); PROTHROMBIN TIME (PATIENT) 12.7 SEC (9.7-13.0)
[2019-05-14 08:12] LABS: CALCIUM 8.8 mg/dL (8.5-10.1); CREATININE 0.3 mg/dL (0.55-1.3); MAGNESIUM 2.3 mg/dL (1.8-2.4); N-TERMINAL BNP 66.3 pg/ml (5-125); PHOSPHOROUS 3.5 mg/dL (2.5-4.9); POTASSIUM 3.7 mmol/L (3.5-5.1)
--- NOTE | 2019-05-14 08:14 | PN ---
Progress Note, Physician Chief Complaint: GI FOLLOW UP NOTE Patient evaluated and case discussed with Dr Sanchez Patient complain of abdominal pain over night, received pepcid, maalox and morphine and felt relief. Continue to have abdominal pain to upper quadrants and epigastrum and lower abdominal pain. Tolerating clear liquid diet. Denies dysphagia, nausea, vomiting, rectal bleeding, melena, blood in stool. On examination patient is requesting to be transferred to another facility. - Current Medication List Current Medications: Active Medications Acetaminophen (Ofirmev Injection -) 750 mg IVPB Q6H PRN PRN Reason: PAIN OR FEVER Sodium Chloride (Normal Saline -) 1,000 mls @ 75 mls/hr IV ASDIR [facility] Stop: 05/14/19 13:34 Last Admin: 05/14/19 00:37 Dose: Not Given Morphine Sulfate (Morphine Sulfate) 2 mg IVPUSH Q4H PRN PRN Reason: PAIN LEVEL 7 - 10 Last Admin: 05/13/19 22:33 Dose: 2 mg Pantoprazole Sodium (Protonix Iv) 40 mg IVPUSH DAILY [facility] Last Admin: 05/13/19 12:41 Dose: 40 mg - Objective Vital Signs: Vital Signs Temperature 98.8 F 05/14/19 06:00 Pulse Rate 101 H 05/14/19 06:00 Respiratory Rate 20 05/14/19 06:00 Blood Pressure 131/81 05/14/19 06:00 O2 Sat by Pulse Oximetry (%) 99 05/13/19 21:00 Constitutional: Yes: No Distress, Calm Eyes: Yes: Conjunctiva Clear HENT: Yes: Atraumatic Cardiovascular: Yes: Tachycardia Respiratory: Yes: Regular, CTA Bilaterally Gastrointestinal: Yes: Normal Bowel Sounds, Soft, Tenderness (diffuse), Tenderness, Epigastrium Neurological: Yes: Alert, Oriented Psychiatric: Yes: Alert, Oriented Labs: CBC, BMP 05/12/19 21:23 INR, PTT INR 1.08 (0.83-1.09) 05/14/19 06:45 <Rosaline Macias - Last Filed: 05/14/19 08:11> - Current Medication List Current Medications: Active Medications Acetaminophen (Ofirmev Injection -) 750 mg IVPB Q6H PRN PRN Reason: PAIN OR FEVER Ferrous Sulfate (Feosol -) 325 mg PO TID [facility] Last Admin: 05/14/19 16:11 Dose: 325 mg Folic Acid (Folic Acid -) 1 mg PO DAILY [facility] Ceftriaxone Sodium 1 gm/ (Dextrose) 50 mls @ 100 mls/hr IVPB DAILY [facility]; Protocol Last Admin: 05/14/19 11:30 Dose: 100 mls/hr Morphine Sulfate (Morphine Sulfate) 2 mg IVPUSH Q4H PRN PRN Reason: PAIN LEVEL 7 - 10 Last Admin: 05/14/19 17:02 Dose: 2 mg Pantoprazole Sodium (Protonix Iv) 40 mg IVPUSH DAILY [facility] Last Admin: 05/14/19 10:16 Dose: 40 mg - Objective Vital Signs: Vital Signs Temperature 98.9 F 05/14/19 18:00 Pulse Rate 100 H 05/14/19 18:00 Respiratory Rate 20 05/14/19 18:00 Blood Pressure 130/82 05/14/19 18:00 O2 Sat by Pulse Oximetry (%) 99 05/13/19 21:00 Labs: CBC, BMP 05/14/19 06:45 05/14/19 06:45 INR, PTT INR 1.08 (0.83-1.09) 05/14/19 06:45 <Inder Sanchez - Last Filed: 05/14/19 18:18> Problem List - Problems (1) Duodenal ulcer Assessment/Plan: -Pantoprazole Code(s): K26.9 - DUODENAL ULCER, UNSP ACUTE OR CHRONIC, W/O HEMOR OR PERF (2) Pyloric stricture Assessment/Plan: -Surgery recommedation apprecatied -Patient requests transfer, spoke with Dr Sanchez and patient agrees to be transferred to [facility] Code(s): K31.1 - ADULT HYPERTROPHIC PYLORIC STENOSIS <Rosaline Macias - Last Filed: 05/14/19 08:11> - Problems (1) Pyloric stricture Assessment/Plan: Patient to be transferred to [facility] for futher evaluation and managment under Dr Gregorio's service The patient us agreeable Code(s): K31.1 - ADULT HYPERTROPHIC PYLORIC STENOSIS <Inder Sanchez - Last Filed: 05/14/19 18:18>
[2019-05-14 08:20] LABS: BLOOD UREA NITROGEN 2.4 mg/dL (7-18)
[2019-05-14 10:08] LABS: HEMATOCRIT 25.8 % (32.4-45.2); HEMOGLOBIN 8.3 GM/dL (10.7-15.3); MCH 28.1 pg (25.7-33.7); MEAN CELL VOLUME 87.8 fl (80-96); PLATELET COUNT 372 K/MM3 (134-434); RBC 2.94 M/mm3 (3.60-5.2); RDW 21.2 % (11.6-15.6); WHITE BLOOD COUNT 7.1 K/mm3 (4.0-10.0)
[2019-05-14] MEDS: PANTOPRAZOLE SODIUM 40 MG VIAL IVPUSH SCH (10:16)
[2019-05-14] MEDS: MORPHINE SULFATE 2 MG/ML VIAL IVPUSH PRN ×2 (10:16→17:02)
[2019-05-14] MEDS ORDERED: CEFTRIAXONE 1 GM in DEXTROSE 5%-WATER - 50 ML IVPB SCH (10:30)
[2019-05-14] MEDS ORDERED: DEXTROSE 5%-WATER - 50 ML IVPB ONE (10:59)
[2019-05-14] MEDS ORDERED: cefTRIAXone SODIUM 1 GM VIAL ONE (10:59)
--- NOTE | 2019-05-14 11:24 | PN ---
Teaching Attending Note Name of Resident: Svitlana Figueroa ATTENDING PHYSICIAN STATEMENT I saw and evaluated the patient. I reviewed the resident's note and discussed the case with the resident. I agree with the resident's findings and plan as documented. SUBJECTIVE:starting to have burning abdominal pain now, not as severe as last night but consistent with pain she was experiencing at home. states pain last night was not related to eating and relieved with pain medications. tolerating liquid diet. also states she has suprapubic pressure and urinary frequency for the past few days. denies CP, SOB, fever, chills, N/V/C/D OBJECTIVE: Last Vital Signs Temp Pulse Resp BP Pulse Ox 98.9 F 107 H 18 121/77 99 05/14/19 10:30 05/14/19 10:30 05/14/19 10:30 05/14/19 10:30 05/13/19 21:00 General NAD, speaking comfortable refused physical exam ASSESSMENT AND PLAN: 33 yo F with PMH Depression, Anxiety, HTN, ?Diastolic CHF, ?Iron deficiency anemia, Tobacco use and Perforated duodenal ulcer who had endoscopy on 05/12 showing non healing peptic ulcer with pyloric stenosis and sent to ER for further evaluation 1. Abdominal pain- due to intractable peptic ulcer and pyloric stenosis. unsure if patient had workup for ulcer disease as outpatient. pt requests to be transferred to [facility] for surgery. transfer being initiated by GI service. cont clear liquids and encouraged not to eat if creating pain. cont IVF, PPI and pain control. surgery and GI on board. imaging studies done last night because of intense abdominal pain were negative for perforation 2. UTI- will start ceftriaxone. f/u Cx 3. Normocytic anemia- slight downtrend consistent with dilutional. iron studies pending. received venofer in ER. will give more once studies resulted. monitor Hgb. 4. Elevated BP- likely due to pain. now controlled. will monitor BP 5. diastolic CHF- in 2017 showed diastolic impairment however repeat earlier this year appeared to be normal. repeat echo pending. cardio on board 6. DVT ppx- SCD 7. pt requesting transfer to [facility]. GI initiating transfer. will f/u for accepting physician. pt is aware this may take a few days
--- NOTE | 2019-05-14 13:28 | PN ---
Physical Exam: SUBJECTIVE: Patient seen, stating that no one is telling her whats going on and she would like to be transferred. OBJECTIVE: Vital Signs Temperature 98.9 F 05/14/19 10:30 Pulse Rate 107 H 05/14/19 10:30 Respiratory Rate 18 05/14/19 10:30 Blood Pressure 121/77 05/14/19 10:30 O2 Sat by Pulse Oximetry (%) 99 05/13/19 21:00 Patient refused to be examined today CBC, BMP 05/14/19 06:45 05/14/19 06:45 Active Medications Acetaminophen (Ofirmev Injection -) 750 mg IVPB Q6H PRN PRN Reason: PAIN OR FEVER Ferrous Sulfate (Feosol -) 325 mg PO TID [facility] Folic Acid (Folic Acid -) 1 mg PO DAILY [facility] Sodium Chloride (Normal Saline -) 1,000 mls @ 75 mls/hr IV ASDIR [facility] Stop: 05/14/19 13:34 Last Admin: 05/14/19 00:37 Dose: Not Given Ceftriaxone Sodium 1 gm/ (Dextrose) 50 mls @ 100 mls/hr IVPB DAILY [facility]; Protocol Last Admin: 05/14/19 11:30 Dose: 100 mls/hr Morphine Sulfate (Morphine Sulfate) 2 mg IVPUSH Q4H PRN PRN Reason: PAIN LEVEL 7 - 10 Last Admin: 05/14/19 10:16 Dose: 2 mg Pantoprazole Sodium (Protonix Iv) 40 mg IVPUSH DAILY [facility] Last Admin: 05/14/19 10:16 Dose: 40 mg ASSESSMENT/PLAN: Patient is a 33 y/o female with a history of HTN, gastric ulcers, Ex lap in 2016 , CHFp EF, migraines, depression, iron deficiency, and anemia who presents for duodenal ulcer and pyloric strictures. #duodenal ulcers and pyloric strictures - sent in by Dr. Sanchez, found on endoscope, pre op - patient on clear liquids, npo after midnight - Dr Sanchez will discuss with Dr Roibn for surgical options - QTC 490, tigan if patient becomes nauseous - morphine 2 mg q6h for pain - over night patient had 10/10 pain, received 8 of morphine and had imaging done - CT ABD/Pelvis: no free air, no organomegaly, no evidence of calcifications of significance, nonspecific bowel pattern - CT Chest: possible antral gastritis with adjacent umair reaction, no free air or abscess - patient requesting to be transferred, Dr. Sanchez looking for an accepting physician #iron deficiency anemia - patient received venofir yesterday - baseline ~ 9 will continue to monitor - continue folate and ferrous sulfate #CHF - Echo (12/07): left ventricle normal size, systolic function is normal, EF 65 -70, left atrial size normal - cardiac consult for cardiac clearance - AHUMADA 0.1 % JOCELYN risk - f/u repeat Echo DVT - SCD's, no medical AC as patient is for pre op FEN - clear liquid, diabetic diet as per surgery Dispo: Dr. Sanchez working on finding a accepting physician so patient can be transferred for surgery Visit type - Emergency Visit Emergency Visit: No - New Patient This patient is new to me today: No - Critical Care Critical Care patient: No
--- NOTE | 2019-05-14 13:30 | PN ---
Progress Note, Physician - Current Medication List Current Medications: Active Medications Acetaminophen (Ofirmev Injection -) 750 mg IVPB Q6H PRN PRN Reason: PAIN OR FEVER Ferrous Sulfate (Feosol -) 325 mg PO TID [facility] Folic Acid (Folic Acid -) 1 mg PO DAILY [facility] Sodium Chloride (Normal Saline -) 1,000 mls @ 75 mls/hr IV ASDIR [facility] Stop: 05/14/19 13:34 Last Admin: 05/14/19 00:37 Dose: Not Given Ceftriaxone Sodium 1 gm/ (Dextrose) 50 mls @ 100 mls/hr IVPB DAILY [facility]; Protocol Last Admin: 05/14/19 11:30 Dose: 100 mls/hr Morphine Sulfate (Morphine Sulfate) 2 mg IVPUSH Q4H PRN PRN Reason: PAIN LEVEL 7 - 10 Last Admin: 05/14/19 10:16 Dose: 2 mg Pantoprazole Sodium (Protonix Iv) 40 mg IVPUSH DAILY [facility] Last Admin: 05/14/19 10:16 Dose: 40 mg - Objective Vital Signs: Vital Signs Temperature 98.9 F 05/14/19 10:30 Pulse Rate 107 H 05/14/19 10:30 Respiratory Rate 18 05/14/19 10:30 Blood Pressure 121/77 05/14/19 10:30 O2 Sat by Pulse Oximetry (%) 99 05/13/19 21:00 Labs: CBC, BMP 05/14/19 06:45 05/14/19 06:45 INR, PTT INR 1.08 (0.83-1.09) 05/14/19 06:45 Assessment/Plan 1. History of perforation of duodenal ulcer and pyloric stricture 2. HTN (not on any medical therapy) 3. Anemia PLAN: 1. Surgery input noted for discussion of possible abdominal surgery 2. Echocardiography to assess LV/RV and valvular function (last echocardiography in November revealed normal LV systolic function,mild MR and mild TR) 3. Monitor BP and initiate medical therapy if necessary 4. Follow CBC. Etiology of anemia to be evaluated
--- NOTE | 2019-05-14 13:58 | ECHO ---
Name: MITUL SMITH Exam:Adult Echocardiogram Study Date: 05/14/2019 08:58 AM Age: 33 yrs Reason For Study: HTN Height: 61 in Weight: 105 lb BSA: 1.4 m2 MMode/2D Measurements & Calculations IVSd: 0.73 cm Ao root diam: 2.3 cm LVIDd: 3.8 cm LA dimension: 1.7 cm LVIDs: 2.3 cm LVPWd: 0.74 cm EDV(Teich): 63.6 ml LVOT diam: 2.0 cm ESV(Teich): 18.7 ml LAV (MOD-bp): 34.6 ml Doppler Measurements & Calculations MV E max dipak: 96.0 cm/sec Ao V2 max: 159.0 cm/sec MV A max dipak: 97.5 cm/sec Ao max P.1 mmHg MV E/A: 0.98 MV dec time: 0.11 sec GELY(V,D): 2.4 cm2 LV V1 max P.2 mmHg TR max dipak: 209.0 cm/sec LV V1 max: 124.0 cm/sec TR max P.5 mmHg PA V2 max: 141.0 cm/sec Med Peak E' Dipak: 8.6 cm/sec PA max P.0 mmHg Med E/e': 11.2 Lat Peak E' Dipak: 16.1 cm/sec Lat E/e': 6.0 Procedure A two-dimensional transthoracic echocardiogram with color flow and Doppler was performed. Left Ventricle The left ventricular size, thickness and function are normal. The left ventricular ejection fraction is normal. Left Ventricular Filling pattern is normal for age. The left ventricular wall motion is rob l. Right Ventricle The right ventricle is normal in size and function. Atria Normal left and right atrial size and function. Mitral Valve There is mild mitral valve thickening. There is no mitral valve stenosis. There is trace to mild mitr al regurgitation. Tricuspid Valve There is trivial tricuspid valve thickening. There is no tricuspid stenosis. There was insufficient T R detected to calculate RV systolic pressure. Aortic Valve The aortic valve is normal in structure and function. No hemodynamically significant valvular aortic stenosis. No aortic regurgitation is present. Pulmonic Valve The pulmonic valve is not well visualized. Great Vessels The aortic root is normal size. Pericardium/Pleura There is no pericardial effusion. Interpretation Summary The left ventricular size, thickness and function are normal The left ventricular ejection fraction is normal. The left ventricular wall motion is normal. There is trivial tricuspid valve thickening. There is trace to mild mitral regurgitation. There was insufficient TR detected to calculate RV systolic pressure. Left Ventricular Filling pattern is normal for age. MD Homar Dugan 05/14/2019 01:57 PM
[2019-05-14] MEDS ORDERED: FERROUS SO4 325 MG TABLET (FP) PO SCH (14:00)
[2019-05-14 18:13] VITALS: PULSE 100; TEMP 98.9
[2019-05-14 20:53] VITALS: BP 116/71
--- NOTE | 2019-05-15 06:33 | DS ---
Physical Exam: SUBJECTIVE: Patient seen, stating that no one is telling her whats going on and she would like to be transferred. OBJECTIVE: Vital Signs Temperature 98.9 F 05/14/19 18:00 Pulse Rate 100 H 05/14/19 20:52 Respiratory Rate 18 05/14/19 20:52 Blood Pressure 116/71 05/14/19 20:52 O2 Sat by Pulse Oximetry (%) 99 05/14/19 09:00 PHYSICAL EXAM Patient refused to be examined today LABS CBC, BMP 05/14/19 06:45 05/14/19 06:45 HOSPITAL COURSE: Date of Admission:05/12/19 Patient is a 33 y/o female with a history of HTN, gastric ulcers, Ex lap in 2016 , CHFp EF, migraines, depression, iron deficiency, and anemia who presents for duodenal ulcer and pyloric strictures. Patient was sent in by her GI doctor Laura. He found the pyloric stricture and ulcer on endoscopy. Patient evaluated by surgery. Patient given morphine for episodes of pain. Patient preferred to have procedure done at [facility]. Patient stable and vitals stable for transfer. Patient has history of iron deficiency anemia. Anemic on presentation, given one unit of venofir. CT ABD/Pelvis: no free air, no organomegaly, no evidence of calcifications of significance, nonspecific bowel pattern CT Chest: possible antral gastritis with adjacent umair reaction, no free air or abscess Date of Discharge: 05/15/19 Minutes to complete discharge: 35 Discharge Summary Reason For Visit: STRICTURE OF PYLORUS,DUODENAL ULCER. Condition: Guarded - Instructions Diet, Activity, Other Instructions: You were admitted to the hospital for pyloric stenosis. You are being transferred to [facility] for further treatment. While you were here you had imaging done which showed a nodule in your lung. You should have repeat imaging done of your lungs in three months. Please follow up with your primary care physician within one week. Please resume all your home medications as prescribed. Return to the Emergency Department if you have any nausea, vomiting, dizziness, chest pain, or headache. Disposition: TRANSFER ACUTE CARE/OTHER HOSP - Home Medications Comprehensive Discharge Medication List: Ambulatory Orders Folic Acid - 1 mg PO DAILY 01/21/19 Ferrous Sulfate 325 mg PO TID 05/13/19 Omeprazole 40 mg PO BID 05/13/19 This patient is new to me today: No Emergency Visit: No Critical Care patient: No - Discharge Referral Referred to [facility] Med [facility] No
[2019-05-15 08:10] LABS: SERUM IRON SATURATION 7 % (15-55); TOTAL IRON BINDING CAPACITY 340 ug/dL (250-450)
[2019-05-15] MEDS ORDERED: FOLIC ACID 1 MG TABLET (FP) PO SCH (10:00)
== END 2019-05-14 21:25 | disposition short-term general hospital (02) | DRG 254 ==
LOC: JER 18:41 → JERBED 22:49 → J5S 05-13 16:58
PROVIDERS: ADMIT Internal Medicine; ATTEND Internal Medicine
DX: K31.1 Adult hypertrophic pyloric stenosis (principal); I11.0 Hypertensive heart disease with heart failure; I50.32 Chronic diastolic (congestive) heart failure; K26.9 Duodenal ulcer, unspecified as acute or chronic, without hemorrhage or perforation; N39.0 Urinary tract infection, site not specified; D50.9 Iron deficiency anemia, unspecified; F17.210 Nicotine dependence, cigarettes, uncomplicated; R91.1 Solitary pulmonary nodule; F32.9 Major depressive disorder, single episode, unspecified; F41.9 Anxiety disorder, unspecified; R00.0 Tachycardia, unspecified; R63.4 Abnormal weight loss; Z68.20 Body mass index [BMI] 20.0-20.9, adult
CPT/HCPCS: 36415; 71045-TC-FY; 71250-TC; 74019-TC-FY; 74176-TC; 80048; 80053; 81003; 82272; 82728; 83540; 83550; 83605; 83690; 83735; 83880; 84100; 84703; 85025; 85027; 85044; 85610; 85730; 86850; 86870; 86900; 86901; 86902; 87086; 93005; 93010; 93306-TC; 99285-25; J0131; J1756; J7030